=== PATIENT | female | born 1950 | race Caucasian/White ===

== ENCOUNTER 2024-09-22 15:13 | Emergency (ER) | payer MEDICARE, MEDICAID, SELFPAY ==
[2024-09-22] VITALS (25 sets, daily range): BP systolic 104–240; BP diastolic 52–133; PULSE 83–165; RESP 14–24; TEMP 37.2–37.3; O2SAT 35–100; BMI 21.9
--- NOTE | 2024-09-22 15:25 | PD.EDCHEST ---
ED Chest Pain RME/HPI General Chief Complaint: Chest Pain Stated Complaint: RIB PAIN Time Seen by Provider: 09/22/24 16:07 Arrival date/time: 09/22/24 15:13 RME / HPI RME / HPI narrative: DR. SANTOS MAIN ED EVALUATION: This section includes all my notes and documentations, including HPI, PE, and ED course.? Dustin Santos MD HPI: 74 year old female with past medical history significant for renal disease on dialysis, hypertension, COPD, pneumonia, on 3L/min home oxygen and defibrillator. Patient presents to the Emergency Department BIBA from home with complaint of left chest pain after being shocked by the defibrillator about an hour ago. Currently, patient reports no chest pain. No shortness of breath. No palpitations. No unusual fatigue or malaise. No other complaints. ROS: All negative except as documented in HPI. Physical Exam: General:? Alert and oriented.? No acute distress when remaining still.? High BP noted. Eyes:? Conjunctivae and lids clear. ENT:? No nasal congestion.? ? Neck:? Supple. Heart:? RRR. Lungs:? No respiratory distress.? Good air movement.? No rhonchi, wheezing, rales.? Abdomen:? Soft and nontender.? Legs:? No clubbing, cyanosis, edema. Skin:? Warm and dry.? Neuro:? Alert and oriented X 3.? My interpretation of the EKG is?Sinus rhythm (94 bpm) with nonspecific ST-T changes. Treatment here by me included oral Catapres 0.2 mg and oral Lopressor 25 mg. Pending complete diagnostic tests, the care of the patient was transferred to Dr. Velez at 6 PM on 09/22/2024. Dustin Santos MD Related Data Home Medications ?Medication ?Instructions ?Recorded ?Confirmed metoprolol tartrate 50 mg tablet 25 mg PO BID 09/20/19 10/02/23 amiodarone 200 mg tablet 200 mg PO BID 08/20/23 10/02/23 apixaban 5 mg tablet (Eliquis) 5 mg PO BID 08/20/23 10/02/23 atorvastatin 20 mg tablet 20 mg PO QDAY 08/20/23 10/02/23 calcium acetate(phosphat bind) 667 667 mg PO TID 08/20/23 10/02/23 mg capsule sacubitril 24 mg-valsartan 26 mg 1 tab PO BID 08/20/23 10/02/23 tablet (Entresto) albuterol sulfate 90 mcg/actuation 1 puff inhalation BIDPRN PRN 10/02/23 10/02/23 aerosol inhaler shortness of breath or wheezing Previous Rx's ?Medication ?Instructions ?Recorded fluticasone fur. 100 mcg-umeclid 1 inh inhalation Q24H #60 ea 10/01/23 62.5 mcg-vilant 25 mcg inhalat.powder (Trelegy Ellipta) amoxicillin 500 mg-potassium 1 tab PO Q12H #14 tabs 11/24/23 clavulanate 125 mg tablet (Augmentin) Allergies Allergy/AdvReac Type Severity Reaction Status Date / Time No Known Allergies Allergy Verified 09/22/24 15:46 Review of Systems Review of Systems Systems Reviewed: All systems reviewed, normal except as documented Past Medical History Past Medical History CARDIAC: Positive Cardiac Disorders, Myocardial Infarction, Heart Murmur, Coronary Artery Disease, Congestive Heart Failure, Edema and Hypertension RESPIRATORY: Positive Chronic Obstructive Pulmonary Disease (COPD) and Pneumonia GASTROINTESTINAL: Positive Gastrointestinal Disorders, Ulcer, Hemorrhoids and Obesity GENITOURINARY: Positive Genitourinary Disorders, Renal Disease, Kidney Stones and Dialysis REPRODUCTIVE: Positive Gonorrhea, Pelvic Inflammatory Disease and Previous Pregnancies MUSCULOSKELETAL: Positive Musculoskeletal Disorders and Fractures HEMATOLOGIC: Positive Blood Disorders and Anemia PSYCHO/SOCIAL: Positive Depression and Anxiety OTHER HISTORY: Positive Hospitalization, Chicken Pox, Measles, Mumps, Rubella (Uzbek Measles), Cancer and Cervical Cancer Family History FAMILY HISTORY: Positive Family Respiratory Disorders and Family Cardiac Disorders Surgical History SURGICAL: Positive Cardiac Surgery, Coronary Stent, Cardiac Catheterization, Angiogram, Auto Implanted Cardiovert Defib, Tonsillectomy, Adenoidectomy, Amputation and Hysterectomy Social History SECOND HAND EXPOSURE: Yes ED Exam Narrative Physical exam: Refer to HPI above Course Quality Measures none Orders Category Date Time Status Bedside COVID-19 Antigen Test NOW Care 09/22/24 15:30 Completed Bedside Influenza A&B Antigen Test NOW Care 09/22/24 15:[address] Screening NOW Care 09/22/24 17:35 Completed EKG (ED ONLY) *Do not use* NOW Care 09/22/24 15:31 Completed EKG (ED ONLY) *Do not use* NOW Care 09/22/24 18:31 Completed Emergency Titration Protocol Stat Care 09/22/24 18:17 Ordered Saline [Insert IV] NOW Care 09/22/24 15:30 Completed Straight [In and Out Catheter] X1 Care 09/22/24 15:30 Completed CXR1 [XR chest 1V] Stat Exams 09/22/24 18:28 Completed EKG (ED Only) Stat Exams 09/22/24 15:31 Draft EKG (ED Only) Stat Exams 09/22/24 18:31 Draft XR chest 1V portable Stat Exams 09/22/24 15:31 Completed ABG [Arterial Blood Gas] Stat Lab 09/22/24 16:21 Completed BNP [B-Type Natriuretic Peptide] Stat Lab 09/22/24 16:39 Completed Bilirubin,Direct Stat Lab 09/22/24 16:39 Completed CBC Stat Lab 09/22/24 16:39 Completed CMP [Comprehensive Metabolic Panel] Stat Lab 09/22/24 16:39 Completed D-Dimer Stat Lab 09/22/24 16:39 Completed Free T4 (Free Thyroxine) Stat Lab 09/22/24 16:39 Completed Magnesium Stat Lab 09/22/24 16:39 Completed PT [Prothrombin Time with INR] Stat Lab 09/22/24 16:39 Completed PTT [Partial Thromboplastin Time] Stat Lab 09/22/24 16:39 Completed TSH [Thyroid Stimulating Hormone] Stat Lab 09/22/24 16:39 Completed Troponin I Stat Lab 09/22/24 16:39 Completed Troponin I Stat Lab 09/22/24 19:42 Completed UA, C/S IF [Urinalysis, C/S if Indicated] Stat Lab 09/22/24 17:55 Completed Heparin Inj Med 09/22/24 19:32 Discontinued 3,800 unit IVP X1 ONE Heparin/D5w 25K 250 ML Ivpb [Heparin in D5w Ivpb] Med 09/22/24 19:45 Discontinued 25,000 unit in 250 ml IV 12 units/kg/hr Magnesium Sulf 50% Inj (gm) Med 09/22/24 18:19 Discontinued 2 gm IVP X1 ONE Metoprolol Tartrate [Lopressor] Med 09/22/24 15:30 Discontinued 25 mg PO X1 ONE Nitroglycerin [Nitrostat 1/150] Med 09/22/24 18:08 Discontinued 0.4 mg SL Q5MIN PRN Nitroglycerin/D5w 50 MG IVPB [Nitroglycerin in D5w Ivpb Med 09/22/24 18:02 Discontinued ] 50 mg in 250 ml .ROUTE .STK-MED Nitroglycerin/D5w 50 MG IVPB [Nitroglycerin in D5w Ivpb Med 09/22/24 18:07 Discontinued ] 50 mg in 250 ml IV 5 mcg/min cloNIDine HCL [Catapres] Med 09/22/24 15:30 Discontinued 0.2 mg PO X1 ONE fentaNYL INJ [Sublimaze Inj] Med 09/22/24 18:07 Discontinued 100 mcg .ROUTE .STK-MED ONE fentaNYL INJ [Sublimaze Inj] Med 09/22/24 18:11 Discontinued 25 mcg IVP PRN PRN BiPAP / CPAP NOW RT 09/22/24 18:24 Completed Vital Signs Vital signs: Vital Signs Temperature 99.0 F 09/22/24 15:20 Pulse Rate 96 09/22/24 15:20 Respiratory Rate 18 09/22/24 15:20 Blood Pressure 168/73 H 09/22/24 15:20 Pulse Oximetry (%) 95 09/22/24 15:20 Oxygen Delivery Method Nasal Cannula 09/22/24 15:20 Oxygen Flow Rate 3 09/22/24 15:20 Chest Pain MDM Narrative MDM Narrative:: IRegla am scribing for and in the presence of Dr. Santos. Patient data External records reviewed:: [facility] previous records (Reviewed prior ED records from 11/23/23. Patient was seen for Acute hypoxic respiratory failure.) and EMS form Clinical information provided by:: patient and EMS Social determinants that could affect healthcare access:: none Patient has the following chronic illnesses:: Renal disease on dialysis, hypertension, COPD, pneumonia, on 3L/min home oxygen; [place] where she coded, was resuscitated and a defibrillator was placed. How is presenting disease/condition affected by chronic disease/condition?: exacerbated by Evaluation data The following diagnostics were reviewed and interpreted by me:: lab results, radiology exam(s) and EKG tracing(s) (My interpretation of the EKG is: Sinus rhythm (94 bpm) with nonspecific ST-T changes. Dustin Santos MD) Lab and/or radiology exams considered but not ordered:: none Interpretation Summary: My interpretation of the EKG is: Sinus rhythm (94 bpm) with nonspecific ST-T changes. Medications / Prescriptions Medications or Prescriptions considered but not ordered:: none Medication administrations:: Medication Administration History Discontinued Medications Clonidine (Clonidine Hcl 0.1 Mg Tablet) 0.2 mg PO X1 ONE Stop: 09/22/24 15:31 Last Admin: 09/22/24 17:12 Dose: 0.2 mg Documented By: JOSE Fentanyl Citrate (Fentanyl Cit Inj 50 Mcg/Ml Amp 2ml) 25 mcg IVP PRN PRN PRN Reason: PAIN Stop: 09/23/24 18:10 Last Admin: 09/22/24 18:26 Dose: 25 mcg Documented By: JOVANA Comments: GIVE ANOTHER DOSE PER DR. VELEZ Admin: 09/22/24 18:24 Dose: 25 mcg Documented By: Admin: 09/22/24 18:22 Dose: 25 mcg Documented By: JOVANA Fentanyl Citrate (Fentanyl Cit Inj 50 Mcg/Ml Amp 2ml) Confirm Administered Dose 100 mcg .ROUTE .STK-MED ONE Stop: 09/22/24 18:08 Last Admin: 09/22/24 18:21 Dose: Not Given Documented By: JOVANA Non-Admin Reason: Duplicate Medication on eMAR Heparin Sodium (Porcine) (Heparin Sod Inj 5000 Unit/Ml Vial) 3,800 unit IVP X1 ONE Stop: 09/22/24 19:33 Last Admin: 09/22/24 19:54 Dose: 3,800 unit Documented By: JOVANA Co-signed By: EF Nitroglycerin/Dextrose (Nitroglycerin In D5w Ivpb) 50 mg in 250 mls @ 1.5 mls/hr IV .Q24H PRN PRN Reason: PER PROTOCOL Stop: 10/22/24 18:06 Last Infusion: 09/22/24 18:28 Dose: 0 mcg/min, 0 mls/hr Documented By: Infusion: 09/22/24 18:18 Dose: 400 mcg/min, 120 mls/hr Documented By: Admin: 09/22/24 18:11 Dose: 5 mcg/min, 1.5 mls/hr Documented By: JOVANA Nitroglycerin/Dextrose (Nitroglycerin In D5w Ivpb) Confirm Administered Dose 50 mg in 250 mls @ ud .ROUTE .STK-MED ONE Stop: 09/22/24 18:03 Last Admin: 09/22/24 18:20 Dose: Not Given Documented By: DB Non-Admin Reason: Duplicate Medication on eMAR Heparin Sodium/Dextrose (Heparin In D5w Ivpb) 25,000 unit in 250 mls @ 7.62 mls/hr IV .Q24H [facility]; Protocol Stop: 10/06/24 19:44 Last Admin: 09/22/24 19:55 Dose: 12 units/kg/hr, 7.62 mls/hr Documented By: JOVANA Co-signed By: EF Magnesium Sulfate (Magnesium Sulf Inj 0.5 Gm/Ml Vial 2 Ml) 2 gm IVP X1 ONE Stop: 09/22/24 18:20 Last Admin: 09/22/24 18:09 Dose: 2 gm Documented By: JOVANA Metoprolol Tartrate (Metoprolol Tartrate 25 Mg Tablet) 25 mg PO X1 ONE Stop: 09/22/24 15:31 Last Admin: 09/22/24 17:12 Dose: 25 mg Documented By: TM Nitroglycerin (Nitroglycerin 0.4 Mg Subl Btl #25) 0.4 mg SL Q5MIN PRN PRN Reason: CHEST PAIN Last Admin: 09/22/24 18:12 Dose: 0.4 mg Documented By: JOVANA From sd, patient received Catapres 0.2 mg, Lopressor 25 mg. Consultations Consultation(s) initiated? (list below): No Diagnosis Chest Pain Differential Diagnosis: fracture of rib, pneumothorax, stable angina, unstable angina pectoris, atypical chest pain, st elevation myocardial infarction, costochondritis and biliary colic Most likely diagnosis given after review of the tests above:: Complete diagnostic tests are pending. Admission Indicated Admission indicated?: not indicated Explain why admission is indicated or not indicated:: Complete diagnostic tests are pending. Admission Request Was there a request for admission?: No Disposition Plan Disposition Plan: other (specify) (Signed out to Dr. Velez at 6 PM.) Discharge Plan Plan Patient Disposition: [facility] Facility Pt Being Transferred to: [facility] Prescriptions/Referrals Prescriptions/Med Rec: No Action metoprolol tartrate 50 mg tablet 25 mg PO BID Patient Comments: TAKE ONE TABLET BY MOUTH TWICE DAILY Rx Instructions: take 1/2 tab twice daily Trelegy Ellipta 100-62.5-25 mcg blister with device 1 inh inhalation Q24H Qty: 60 0RF albuterol sulfate 90 mcg/actuation HFA aerosol inhaler 1 puff inhalation BIDPRN PRN (Reason: shortness of breath or wheezing) amoxicillin-pot clavulanate [Augmentin] 500-125 mg tablet 1 tab PO Q12H Qty: 14 0RF Rx Instructions: Dialysis days: Take dose AFTER dialysis session. atorvastatin 20 mg tablet 20 mg PO QDAY Patient Comments: TAKE ONE TABLET BY MOUTH EVERY DAY FOR CHOLESTEROL amiodarone 200 mg tablet 200 mg PO BID Patient Comments: TAKE ONE TABLET BY MOUTH TWICE DAILY FOR THE HEART calcium acetate(phosphat bind) 667 mg capsule 667 mg PO TID Patient Comments: TAKE TWO CAPSULES BY MOUTH THREE TIMES DAILY WITH FOOD Rx Instructions: take 3 capule by mouth three times daily Eliquis 5 mg tablet 5 mg PO BID Patient Comments: TAKE ONE TABLET BY MOUTH TWICE DAILY FOR THE HEART Entresto 24-26 mg tablet 1 tab PO BID Patient Comments: TAKE ONE TABLET BY MOUTH TWICE DAILY Referrals: Alfie Mishra MD [Primary Care Provider] - In 1 week Problem List Clinical Impression: Chest pain Patient/Caregiver Discharge Instructions Print Language: Macedonian Stand Alone Forms: [employer] Award Info., Patient Portal Info Letter
--- NOTE | 2024-09-22 15:31 | XR_ITS ---
Examination: AP chest single view TECHNIQUE: AP portable upright chest single view Date and time: September 22, 2024 1630 hours Comparison November 23, 2023 INDICATIONS: Shortness of breath beginning 6 days ago. FINDINGS: Mild CHF Moderate enlargement cardiac contour Prominent vascular congestion. Early basilar edema. Heavy cardiac calcification which may be mitral Cardiac leads stable position IMPRESSION: Mild CHF
--- NOTE | 2024-09-22 15:31 | EKG_ITS ---
[facility] Test Date: 2024-09-22 Pat Name: REILLY GRADY Department: Room: - Gender: Female [employer]: : 1950 Requested By: Dustin Dunham Order Number: [id number] Reading MD: Dustin Dunham Measurements Intervals [place] Rate: 94 P: 80 WA: 199 QRS: 11 QRSD: 112 T: 141 QT: 355 QTc: 445 Interpretive Statements SINUS RHYTHM POSSIBLE LEFT ATRIAL ENLARGEMENT [-0.1mV P-WAVE IN V1/V2] LEFT VENTRICULAR HYPERTROPHY AND ST-T CHANGE [VOLTAGE CRITERIA PLUS ST/T ABNORMALITY] Compared to ECG 10/02/2023 00:21:30 Left-axis deviation no longer present ST (T wave) deviation still present /store/S0/[id number].pdf
[2024-09-22 16:33] LABS: Base Excess 9 (-3-3); HCO3 34 mEq/L (20-26); Inspired Oxygen, FIO2 21 %; O2 Saturation 99 % (91-98); PCO2 46 mmHg (32.0-48.0); PO2 94 mmHg (83-108); pH, Arterial 7.47 (7.35-7.45)
[2024-09-22 16:36] LABS: Allen Test Performed/OK; Puncture Site Left Radial
[2024-09-22 16:49] LABS: Basophils # (Auto) 0.1 Thou/mm3 (0.0-0.2); Basophils % (Auto) 1 % (0-2.5); Eosinophils # (Auto) 0.1 Thou/mm3 (0.0-0.5); Eosinophils % (Auto) 1 % (0-10); Hematocrit 31.3 % (36.0-46.0); Hemoglobin 10.2 g/dL (12.0-16.0); Immature Granulocytes % (Auto) 1 % (0-0); Immature Granulocytes Auto 0.03 Thou/mm3 (0.00-0.00); Lymphocytes # (Auto) 0.9 Thou/mm3 (1.0-4.8); Lymphocytes % (Auto) 14 % (10-50); Mean Corpuscular HGB Conc 32.6 g/dl (31.0-37.0); Mean Corpuscular Hemoglobin 28.7 pg (25.0-35.0); Mean Corpuscular Volume 88 fL (80-100); Monocytes # (Auto) 0.8 Thou/mm3 (0.0-0.8); Monocytes % (Auto) 12 % (0-12); Neutrophils # (Auto) 4.4 Thou/mm3 (1.8-7.7); Neutrophils % (Auto) 71 % (37-80); Nucleated Red Blood Cell % 0 /100 WBC (0); Platelet Count 112 Thou/mm3 (140-440); RDW Standard Deviation 53.6 fL (36.4-46.3); Red Blood Count 3.56 Miln/mm3 (4.00-5.20); White Blood Count 6.2 Thou/mm3 (3.6-11.0)
[2024-09-22 17:04] LABS: INR 1.1 (0.9-1.3); Partial Thromboplastin Time 26.8 Seconds (22.0-36.0); Prothrombin Time 11.7 Seconds (9.0-12.2)
[2024-09-22 17:10] LABS: D-Dimer 1420 ng/mL (<600)
[2024-09-22] MEDS: METOPROLOL TARTRATE 25 MG TABLET PO (17:12)
[2024-09-22] MEDS: cloNIDine HCL 0.1 MG TABLET 0.2 MG PO (17:12)
[2024-09-22 17:38] LABS: B-Type Natriuretic Peptide 1939 pg/mL (0-100)
[2024-09-22 17:53] LABS: Alanine Aminotransferase 14 U/L (10-49); Albumin, Serum 4.1 gm/dL (3.4-4.8); Albumin/Globulin Ratio 2.1 (1.2-2.2); Alkaline Phosphatase 137 U/L (46-116); Anion Gap 9 (7-16); Aspartate Amino Transferase 14 U/L (0-34); BUN/Creatinine Ratio 5 Ratio (12-20); Bilirubin,Direct 0.2 mg/dL (0.0-0.3); Bilirubin,Total 0.4 mg/dL (0.3-1.2); Blood Urea Nitrogen 31 mg/dL (9-23); Calcium 9.8 mg/dL (8.3-10.6); Calcium (Corrected) 9.8 mg/dL (8.5-10.1); Carbon Dioxide 32.3 mMol/L (20.0-31.0); Chloride 95 mMol/L (98-107); Creatinine (Component) 6.1 mg/dL (0.6-1.3); Free T4 (Free Thyroxine) 0.94 ng/dL (0.89-1.76); Glucose 105 mg/dL (74-106); Magnesium 2.3 mg/dL (1.6-2.6); Osmolality,Calculated 278 (275-295); Sodium 136 mMol/L (136-145); Thyroid Stimulating Hormone 1.15 uIU/mL (0.55-4.78); Total Protein 6.1 gm/dL (5.7-8.2); eGFR 7 See Note
[2024-09-22 18:07] LABS: Collection Type, Urine Clean Catch
[2024-09-22] MEDS: MAGNESIUM SULF 2 GM IVP (18:09)
[2024-09-22] MEDS: Nitroglycerin/D5w 50 MG IVPB 50 MG/250 ML BTL IV (18:11)
[2024-09-22] MEDS: NITROGLYCERIN 0.4 MG SUBL BTL #25 SL (18:12)
[2024-09-22 18:15] LABS: Troponin I 0.204 ng/mL (0.0-0.045)
--- NOTE | 2024-09-22 18:16 | EDNOTE_ITS ---
Emergency Room Addendum <Justina Littlejohn - Last Filed: 09/22/24 23:30> Addendum Narrative: 1800: Care assumed from Dr. Santos (emergency physician). Past medical, surgical, social and family history reviewed. Vitals and home medications reviewed. Results and treatment plan discussed. I will assume the care of the patient at this time and will follow the patient, pending CT and labs. 1806: 8 minutes ago patient complained of difficulty breathing. Defibrillator went off 3 times. Patient is tachycardic and hypertensive with systolic in the 200's. Patient will be started on BiPAP and Nitroglycerin drip. Patient i full code and has no allergies to medication. 1823: Blood pressure is progressively coming down. Patient is mentally well. Patient given 2 Nitroglycerin SL as well as drip. She is having another complex episode of tachycardia. Defibrillator went off again. Patient is tolerating BiPAP well. 1834: Patient has a Hx of CAD, multiple AL's and stent placements, COPD, on O2 2-3L at home, A-fib with pacemaker. ESRD on Thursday, Thursday, , and Thursday. Will investigate to see who her senior cytotechnologist is. 1838: HR is 101, BP 144/97, and is tolerating BiPAP well. Initial chest x-ray shows small right pleural effusion, significant cardiomegaly, and largely calcified aorta. D-Dimer 1420, ABG pH 7.47, ABG HCO3 34, ABG O2 99%, ABG Base 9. Troponin I 0.204, BNP 1939. Acute on Chronic Kidney injury Creatinine 6.1, and significant electrolyte abnormalities. UA appears possibly infected. Initial EKG shows sinus rhythm, 94 bmp, normal intervals, non-specific T-wave changes, S-T elevations at 3 and AVF. Ordered delta trop. Repeat EKG done at 1833, 102 bpm, MD 204, QT 408, left bundle with elevations in 2, 3, does not meet criteria for AL nor Scarbossa criteria, not a cardiac alert. normal intervals, non-specific T-wave changes, not a cardiac alert. - Interpreted by Dr. Renetta Samano. Repeat EKG done at 1913 87, heart rate 87 MD 209, QTc 414, patient with dynamic EKG changes now with ST depressions in lead I aVL and severely pronounced ST depressions in lead V4, V5, V6 also has ST elevations in lead to 3 and aVF. Concern that patient is having an AL. Activated as a STEMI. - Interpreted by Dr. Renetta Samano. 1914: Dr. Escudero made aware of the patient?s HPI, PMHx, lab and/or radiology results. Discussed treatment plan. Dr. Escudero will come down to evaluate patient. 1938: Dr. Escudero recommends transfer for higher level of care for STEMI. Patient is currently having an inferior AL. Dr. Escudero agrees with heparin bolus and drip. Does not recommend fibrinolytics at this time, only Heparin. Per chart review patient has had prior EKGs with mild elevations in inferior leads possibly has had an inferior AL in the past however is concerned that she is reoccluding her right coronary artery. Recommends that we reach out to [facility] 1956: Discussing case with Dr. Mascorro at [facility]. Accepts patient for transfer. On reevaluation patient hemodynamically stable, symptoms well- controlled not having chest pain at this time. Stable on BiPAP, nitroglycerin drip has been off since blood pressure shortness of breath was controlled. Repeat chest x-ray shows pulmonary edema. RADIOLOGY Repeat CXR: FINDINGS: [id number] CHF Moderate to large cardiac contour Prominent vascular congestion Perihilar basilar edema Cardiac leads satisfactory position IMPRESSION: [id number] CHF 2027: Patient transported to [facility]. <Renetta Samano MD - Last Filed: 09/22/24 20:07> Addendum Narrative: 1800: Care assumed from Dr. Santos (emergency physician). Past medical, surgical, social and family history reviewed. Vitals and home medications reviewed. Results and treatment plan discussed. I will assume the care of the patient at this time and will follow the patient, pending CT and labs. 1806: 8 minutes ago patient complained of difficulty breathing. Defibrillator went off 3 times. Patient is tachycardic and hypertensive with systolic in the 200's. Patient will be started on BiPAP and Nitroglycerin drip. Patient i full code and has no allergies to medication. 1822: Blood pressure is progressively coming down. Patient is mentally well. Patient given 2 Nitroglycerin SL as well as drip. She is having another complex episode of tachycardia. Defibrillator went off again. Patient is tolerating BiPAP well. 1833: Patient has a Hx of CAD, multiple AL's and stent placements, COPD, on O2 2-3L at home, A-fib with pacemaker. ESRD on Thursday, Thursday, , and Thursday. Will investigate to see who her senior cytotechnologist is. 1837: HR is 101, BP 144/97, and is tolerating BiPAP well. Initial chest x-ray shows small right pleural effusion, significant cardiomegaly, and largely calc ified aorta. D-Dimer 1420, ABG pH 7.47, ABG HCO3 34, ABG O2 99%, ABG Base 9. Troponin I 0.204, BNP 1939. Acute on Chronic Kidney injury Creatinine 6.1, and significant electrolyte abnormalities. UA appears possibly infected. Initial EKG shows sinus rhythm, 94 bmp, normal intervals, non-specific T-wave changes, S-T elevations at 3 and AVF. Ordered delta trop. Repeat EKG done at 1832, 102 bpm, MD 204, QT 408, left bundle with elevations in 2, 3, does not meet criteria for AL nor Scarbossa criteria, not a cardiac alert. normal intervals, non-specific T-wave changes, not a cardiac alert. - Interpreted by Dr. Renetta Samano. Repeat EKG done at 1912 87, heart rate 87 MD 209, QTc 414, patient with dynamic EKG changes now with ST depressions in lead I aVL and severely pronounced ST depressions in lead V4, V5, V6 also has ST elevations in lead to 3 and aVF. Concern that patient is having an AL. Activated as a STEMI. - Interpreted by Dr. Renetta Samano. 1914: Dr. Escudero made aware of the patient?s HPI, PMHx, lab and/or radiology results. Discussed treatment plan. Dr. Escudero will come down to evaluate patient. 1938: Dr. Escudero recommends transfer for higher level of care for STEMI. Patient is currently having an inferior AL. Dr. Escudero agrees with heparin bolus and drip. Does not recommend fibrinolytics at this time, only Heparin. Per chart review patient has had prior EKGs with mild elevations in inferior leads possibly has had an inferior AL in the past however is concerned that she is reoccluding her right coronary artery. Recommends that we reach out to [place] [id number]: Discussing case with Dr. Mascorro at [facility]. Accepts patient for transfer. On reevaluation patient hemodynamically stable, symptoms well- controlled not having chest pain at this time. Stable on BiPAP, nitroglycerin drip has been off since blood pressure shortness of breath was controlled. Repeat chest x-ray shows pulmonary edema. RADIOLOGY Head/Brain CT: Chest CTA: Repeat CXR: Critical Care Time <Justina Littlejohn - Last Filed: 09/22/24 23:30> Critical Care Time Critical Care Time: Yes Total Critical Care Time (min.): 120 Attestation: The high probability of sudden, clinically significant deterioration in the patient?s condition required the highest level of my preparedness to intervene urgently. The services I provided to this patient were to treat and/or prevent clinically significant deterioration. Services included the following: chart data review, reviewing nursing notes and/or old charts, documentation time, quality compliance consultant collaboration regarding findings and treatment options, medication orders and management, direct patient care, vital sign assessments and ordering, interpreting and reviewing diagnostic studies and lab tests. Aggregate critical care time includes only time during which I was engaged in work directly related to the patient?s care, as described above, whether at bedside or elsewhere in the Emergency Department. It did not include time spent performing other reported procedures or the services of residents, students, nurses or physician assistants.
--- NOTE | 2024-09-22 18:21 | PC.NURSE ---
PT CARDIAC RHYTHM SHOWED SVT AND PT INTERNAL DEFIBRILLATOR DELIVERED A SHOCK WITH RHYTHM CHANGE TO NSR, DR. ROSIE LLAMAS BEDSIDE
[2024-09-22] MEDS: fentaNYL CIT INJ 50 mCg/ML AMP 2ML 25 MCG IVP ×3 (18:22→18:26)
[2024-09-22 18:23] LABS: Bacteria,Urine Rare; Bilirubin,Urine Negative (Negative); Blood,Urine Trace (Negative); Clarity,Urine Clear (Clear/Hazy); Color,Urine Lt-Yellow (Lt Yel-Yel); Culture Indicated,Urine Contaminated; Glucose, Urine Negative (Negative); Ketones,Urine Negative (Negative); Leukocyte Esterase,Urine Positive (Negative); Nitrite,Urine Negative (Negative); Protein,Urine 2+ (Neg - Trace); RBC,Urine 11 /hpf (0-3); Squamous Epithelial Cell,Urine 16 /hpf (0-5); Urobilinogen,Urine Negative mg/dL (0.0-1.0); WBC,Urine 43 /hpf (0-5)
--- NOTE | 2024-09-22 18:28 | XR_ITS ---
Examination: AP chest single view Technique AP portable upright chest single view Date and time: September 22, 2024 1830 7:00 PM Comparison September 22, 2024 1630 hours INDICATIONS: Onset respiratory distress beginning one hour ago FINDINGS: [id number] CHF Moderate to large cardiac contour Prominent vascular congestion Perihilar basilar edema Cardiac leads satisfactory position IMPRESSION: [id number] CHF
--- NOTE | 2024-09-22 18:31 | EKG_ITS ---
[facility] Test Date: 2024-09-22 Pat Name: REILLY GRADY Department: Room: - Gender: Female Director [place] [employer]: : 1950 Requested By: Renetta Greer Order Number: [id number] Reading MD: Renetta Greer Measurements Intervals [place] Rate: 102 P: 89 MA: 204 QRS: 72 QRSD: 130 T: 42 QT: 349 QTc: 456 Interpretive Statements SINUS TACHYCARDIA INFERIOR MYOCARDIAL INFARCTION , POSSIBLY ACUTE [40+ ms Q WAVE AND/OR ST/T ABNORMALITY IN II/aVF] ACUTE TX Compared to ECG 09/22/2024 16:07:19 Myocardial infarct finding now present Sinus rhythm no longer present Left ventricular hypertrophy no longer present ST (T wave) deviation no longer present /store/S0/[id number].pdf
--- NOTE | 2024-09-22 18:38 | PC.NURSE ---
THIS RN DID A STRAIGHT CATH ON PT, THEN ATTEMPTED AN IV 2X. WAS IN THE ROOM W/PT ABOUT 30-40 MINUTES, PT WAS LAUGHING JOKING W/THIS RN AND CUSTOMER CONTACT REPRESENTATIVE SARAH. THIS RN WALKED OUT TO SEND URINE, AND ASKED A ADELINA RN TO GO ATTEMPT AN IV, FELLOW RN CAME OUT AND ASKED IF PT IS AT HER BASELINE, THIS RN WENT IN THE ROOM, PT WAS STRUGGLING TO BREATHE, REPEATING SHE CAN'T BREATHE, BEGAN GOING INTO VTACH. PROVIDER NOTIFIED, PT MOVED TO TRAUMA ROOM, PLACED ON MD TAYLOR AT BEDSIDE GIVING VERBAL ORDERS. THIS RN GAVE HANDOFF TO ANDREW MCGOVERN.
--- NOTE | 2024-09-22 19:24 | PC.NURSE ---
UNABLE TO GET AHOLD OF FAMILY FOR THIS PT AT THIS TIME TO GET AN UPDATE ON PT MEDICATION RECORD.
--- NOTE | 2024-09-22 19:33 | PC.NURSE ---
DR. BEARDEN AT BEDSIDE ASSESSING PT AT THIS TIME
[2024-09-22] MEDS: HEPARIN SOD INJ 5000 UNIT/ML VIAL 3800 UNIT IVP (19:54)
[2024-09-22] MEDS: Heparin/D5w 25K 250 ML Ivpb 25,000 UNIT/250 ML BAG 7.62 UNIT IV (19:55)
--- NOTE | 2024-09-22 20:03 | PC.NURSE ---
THIS PT IS ACCEPTED TO ER BY DR. CORADO. THIS IS A ED:ED TRANSFER AND NUMBER FOR REPORT IS [id number]. [facility]PO[facility] FOR ACCEPTING INFORMATION.
[2024-09-22 20:41] LABS: Troponin I 0.198 ng/mL (0.0-0.045)
--- NOTE | 2024-09-23 00:12 | ESCONSULT_ITS ---
RE: REILLY GRADY : 1950 DATE OF CONSULTATION: 09/22/2024 CONSULTING PHYSICIAN: REASON FOR CONSULTATION: Evaluation of acute myocardial infarction. CHIEF COMPLAINT: Shortness of breath, defibrillator shock. HISTORY OF PRESENT ILLNESS: The patient is a 74-year-old female with a longstanding history of hypertension, chronic kidney disease, on hemodialysis, chronic obstructive pulmonary disease, pneumonia, history of myocardial infarction, stent placement in the right coronary artery in 07/2023 and underwent ICD implantation following sudden cardiac . She came to the hospital because of severe shortness of breath and tachycardia and hypertensive, a lot of difficulty in breathing. The patient was on BiPAP, nitroglycerin drip. The patient has flash pulmonary edema. Chest x-ray shows pleural effusion, cardiomegaly, and initial ABC showed pH 7.47, pCO2 bicarbonate 34, saturation 99%, troponin 0.20, BNP level 1939, and creatinine of 6.1. The patient has had internal defibrillator shocked, developed ventricular fibrillation, tachycardia; internal defibrillator shocked x3 and she came back to sinus rhythm. Electrocardiogram showed evidence of sinus rhythm with IVCD, ST elevation II, III, aVF with Q-wave suggestive of different dynamic ST change elevations compared to previous EKG in inferior leads. The patient has known history of CAD, stent placement of right coronary artery in the past. Chances are she occluded right coronary artery causing ventricular fibrillation. Because of what appears to be acute occlusion of the right coronary artery, I have recommended the patient be transferred to [facility] for myocardial infarction. ALLERGIES: NONE. MEDICATIONS: She is on multiple medications at home includin. Metoprolol 25 mg twice daily. 2. Amiodarone 200 mg twice daily. 3. Apixaban 5 mg twice daily. 4. Atorvastatin 20 mg daily. 5. Sacubitril, valsartan, Entresto 1 tablet twice daily. PAST MEDICAL HISTORY: Hypertension, CKD on hemodialysis, CAD, stent placement in right coronary artery, status post ICD implantation, and . SOCIAL HISTORY: Not available. REVIEW OF SYSTEMS: Cardiovascular: As described in HPI. She does not have any chest pain, mostly shortness of breath, weakness. Gastrointestinal: No nausea or vomiting. Genitourinary: No history of frequency or dysuria. PHYSICAL EXAMINATION: GENERAL: A well-nourished, thin built, elderly female, alert, awake, and in no acute distress. VITAL SIGNS: Remained stable. Blood pressure is 160/80, pulse rate is 80, respirations 18, and temperature normal. HEENT: Head is atraumatic and normocephalic. EYES: Normal. ENT: Normal. NECK: Supple. No JVD. Carotid pulse felt with no bruit. CHEST: Symmetrical. LUNGS: Decreased breath sounds. HEART: S1 and S2. Regular, tachycardia. ABDOMEN: Thin and soft. 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 There is also edema. /RECTAL: Not performed. NEUROLOGIC: The patient is fairly alert and awake. No acute distress. She is on BiPAP. IMPRESSION/ASSESSMENT: 1. Acute ST segment elevation, inferior wall myocardial infarction, and history of old myocardial infarction. 2. Status post multivessel stent placement in RCA. 3. Status post ICD implantation, ICD discharge for ventricular fibrillation and tachycardia. RECOMMENDATIONS: The patient clearly has ventricular fibrillation, possibly from RCA occlusion. It is prudent for her to be in [place] to get tertiary care because tonight there is no available to treat this patient here. She will be transferred there for higher level of care, may require coronary angiogram. We will leave it up to the cardiac Hospital. I would like to thank you for referring this patient for cardiovascular evaluation. We will be glad to discuss with the site administrator and call if necessary at [facility]. DT: 20:37:23 TT: 23:07:00 Ref: [id number] - TID: [id number]
== END 2024-09-22 20:33 | disposition short-term general hospital (02) ==
PROVIDERS: Emergency Medicine; Emergency Provider Emergency Medicine; PCP Internal Medicine
DX: I13.2 Hypertensive heart and chronic kidney disease with heart failure and with stage 5 chronic kidney disease, or end stage renal disease (principal); I50.9 Heart failure, unspecified; Z75.1 Person awaiting admission to adequate facility elsewhere
CPT/HCPCS: 51701; 36415; 36600; 71045; 80053; 81001; 82248; 82803; 83735; 83880; 84439; 84443; 84484; 85025; 85379; 85610; 85730; 87400; 87811; 93005; 94660; 96365; 96374; 96375; 99291; 99292; J1644; J3010; J3475; J3490; A9270; J2305

== ENCOUNTER 2024-11-11 03:32 | Inpatient (IN) | payer MEDICARE, MEDICAID, SELFPAY ==
[2024-11-11] VITALS (88 sets, daily range): BP systolic 84–232; BP diastolic 11–94; PULSE 69–89; RESP 12–25; TEMP 34.6–37; O2SAT 84–100; BMI 24.5
--- NOTE | 2024-11-11 03:36 | XR_ITS ---
Examination: AP chest single view Technique one AP portable semiupright chest single view Date and time: November 21, 2024 0347 hours Comparison 05/25/2024 INDICATIONS: Hypoxic respiratory failure, heart failure postintubation on earlier chest films FINDINGS: Moderate heart failure. Moderate enlargement cardiac contour Prominent vascular congestion with perihilar basilar edema. Endotracheal tube tip 10 cm above bam. Orogastric tube is in the proximal stomach Cardiac leads stable position IMPRESSION: Moderate CHF Advance the orogastric tube 7 cm with follow-up abdomen film
[2024-11-11] MEDS: ETOMIDATE INJ 2 MG/ML VIAL 10 ML 20 MG IVP (03:37)
--- NOTE | 2024-11-11 03:38 | PD.EDSOB ---
ED SOB =RME/HPI General Chief Complaint: Shortness of Breath/Dyspnea Stated Complaint: DIFF BREATHING Time Seen by Provider: 11/11/24 03:37 Arrival date/time: 11/11/24 03:32 RME / HPI RME / HPI Narrative: This section includes all my notes and documentations, including HPI, PE, and ED course. Dustin Santos MD HPI: 74 y/o female with Hx of CHF, COPD, and Renal Failure with Dialysis BIBA from home present with respiratory failure. Patient lives alone. Patient manage to call 911. When EMS arrived, she was awake with severe respiratory distress and audible wheezing. Neb treatment X 5 given with CPAP. EMS noted decreasing mental status. Unable to obtain history from the patient here. ROS: Unable to obtain from the patient due to current clinical condition. Physical Exam: General: Patient is obtunded. Severe respiratory distress noted. Hypoxia noted. High BP noted. Eyes: Conjunctivae and lids clear. EOMI. PERRL. ENT: No nasal congestion. Neck: Supple. No carotid bruit. No JVD. Heart: RRR. Lungs: Severe respiratory distress respiratory distress. Moderately decreased air movement with wheezing and rales. Abdomen: Soft and nontender. Legs: No clubbing, cyanosis, edema. Skin: Warm and dry. Neuro: Patient is obtunded. I reviewed EMS notes. I reviewed all diagnostic test results: My interpretation of the EKG is: Sinus rhythm (85 bpm) with nonspecific ST-T changes, no change from previous EKG. My interpretation of the chest x-ray is opacities. Blood tests remarkable for WBC 13.5, D-dimer 2630, Cr 6.4, lactic acid 4.1, Ca 7.7, troponin 0.046, BNP 2006. UA showed positive leukocyte Estrace, 502 RBC, 1255 WBC. ABG showed pH 7.14, pCO 271, and pHCO3 24. Covid/Influenza: At this point, diagnoses include: Acute respiratory failure with hypoxia and hypercapnia, COPD exacerbation, Respiratory acidosis, Pneumonia, CHF (congestive heart failure), UTI (urinary tract infection), ESRD (end stage renal disease), Sepsis, Hypocalcemia Treatment here included: Intubation (see procedure note), cefepime and vancomycin, Solu-Medrol and Xopenex neb treatments, etomidate and succinylcholine for intubation, and propofol drip for sedation. 0410: I discussed the case with our ICU service. About the presentation and exam and diagnostics and treatments here. And need of further care in the hospital. Will accept the patient. Dustin Santos MD Related Data Home Medications ?Medication ?Instructions ?Recorded ?Confirmed metoprolol tartrate 50 mg tablet 25 mg PO BID 09/20/19 10/02/23 amiodarone 200 mg tablet 200 mg PO BID 08/20/23 10/02/23 apixaban 5 mg tablet (Eliquis) 5 mg PO BID 08/20/23 10/02/23 atorvastatin 20 mg tablet 20 mg PO QDAY 08/20/23 10/02/23 calcium acetate(phosphat bind) 667 667 mg PO TID 08/20/23 10/02/23 mg capsule sacubitril 24 mg-valsartan 26 mg 1 tab PO BID 08/20/23 10/02/23 tablet (Entresto) albuterol sulfate 90 mcg/actuation 1 puff inhalation BIDPRN PRN 10/02/23 10/02/23 aerosol inhaler shortness of breath or wheezing Previous Rx's ?Medication ?Instructions ?Recorded fluticasone fur. 100 mcg-umeclid 1 inh inhalation Q24H #60 ea 10/01/23 62.5 mcg-vilant 25 mcg inhalat.powder (Trelegy Ellipta) amoxicillin 500 mg-potassium 1 tab PO Q12H #14 tabs 11/24/23 clavulanate 125 mg tablet (Augmentin) Allergies Allergy/AdvReac Type Severity Reaction Status Date / Time No Known Allergies Allergy Verified 09/22/24 15:46 Review of Systems Review of Systems Systems Reviewed: All systems reviewed, normal except as documented Past Medical History Past Medical History CARDIAC: Positive Cardiac Disorders, Myocardial Infarction, Heart Murmur, Coronary Artery Disease, Congestive Heart Failure, Edema and Hypertension RESPIRATORY: Positive Chronic Obstructive Pulmonary Disease (COPD) and Pneumonia GASTROINTESTINAL: Positive Gastrointestinal Disorders, Ulcer, Hemorrhoids and Obesity GENITOURINARY: Positive Genitourinary Disorders, Renal Disease, Kidney Stones and Dialysis REPRODUCTIVE: Positive Gonorrhea, Pelvic Inflammatory Disease and Previous Pregnancies MUSCULOSKELETAL: Positive Musculoskeletal Disorders and Fractures HEMATOLOGIC: Positive Blood Disorders and Anemia PSYCHO/SOCIAL: Positive Depression and Anxiety OTHER HISTORY: Positive Hospitalization, Chicken Pox, Measles, Mumps, Rubella (Citizen [place] Measles), Cancer and Cervical Cancer Family History FAMILY HISTORY: Positive Family Respiratory Disorders and Family Cardiac Disorders Surgical History SURGICAL: Positive Cardiac Surgery, Coronary Stent, Cardiac Catheterization, Angiogram, Auto Implanted Cardiovert Defib, Tonsillectomy, Adenoidectomy, Amputation and Hysterectomy ED Exam Narrative Physical exam: Refer to HPI Course Course Course Narrative: CXR is ordered for determining the etiology of shortness of breath. Quality Measures none Orders Category Date Time Status Admit to Inpatient Status Routine Admission 11/11/24 05:17 Active Patient Condition Routine Admission 11/11/24 05:17 Ordered Bedside COVID-19 Antigen Test NOW Care 11/11/24 03:39 Active Bedside Influenza A&B Antigen Test NOW Care 11/11/24 03:39 Completed COVID-19 Screening Questionnaire NOW Care 11/11/24 04:40 Active Continuous Pulse Oximetry NOW Care 11/11/24 05:17 Active Decision to Admit X1 Care 11/11/24 04:40 Completed EKG (ED ONLY) *Do not use* NOW Care 11/11/24 03:39 Completed Emergency Titration Protocol Stat Care 11/11/24 04:42 Ordered Flu & Pneumonia Vaccine Screen ONCE Care 11/11/24 05:17 Active Fluid restriction QDAY Care 11/11/24 05:27 Active [place] [Urinary Catheter] QS Care 11/11/24 03:36 Active [place] to [place] Routine Care 11/11/24 03:39 Ordered Insert NG / OG tube NOW Care 11/11/24 03:36 Active Insert NG / OG tube NOW Care 11/11/24 03:39 Completed Intubation NOW Care 11/11/24 03:35 Completed Miscellaneous Nursing Order X1 Care 11/11/24 05:27 Active NPO NOW Care 11/11/24 05:18 Active Notify provider NEEDED Care 11/11/24 05:17 Active Obtain weight daily Care 11/11/24 05:18 Active Saline [Insert IV] NOW Care 11/11/24 03:39 Active Strict Intake and Output Routine Care 11/11/24 05:18 Ordered Consult to Nephrology Routine Cons 11/11/24 04:53 Ordered Diet NPO (NOW) Diet 11/11/24 05:[address] chest wo con Urgent Exams 11/11/24 05:[address] head/brain wo con Stat Exams 11/11/24 04:50 Ordered EKG (ED Only) Stat Exams 11/11/24 03:39 Ordered XR chest 1V post procedure Stat Exams 11/11/24 03:36 Taken ABG [Arterial Blood Gas] Stat Lab 11/11/24 03:41 Ordered ABG [Arterial Blood Gas] Stat Lab 11/11/24 04:01 Completed ABG [Arterial Blood Gas] Urgent Lab 11/11/24 06:00 Ordered Ammonia Stat Lab 11/11/24 04:00 Completed BNP [B-Type Natriuretic Peptide] Stat Lab 11/11/24 04:00 Completed Beta Hydroxybutyrate Stat Lab 11/11/24 04:00 Completed Bilirubin,Direct Stat Lab 11/11/24 04:00 Completed Blood Culture (Lab) Stat Lab 11/11/24 04:53 Received CBC AM DRAW Lab 11/12/24 05:00 Ordered CBC AM DRAW Lab 11/13/24 05:00 Ordered CBC AM DRAW Lab 11/14/24 05:00 Ordered CBC Stat Lab 11/11/24 04:00 Completed CK [Creatine Kinase] Stat Lab 11/11/24 04:00 Completed CMP [Comprehensive Metabolic Panel] Stat Lab 11/11/24 04:00 Completed CRP [C-Reactive Protein] Stat Lab 11/11/24 04:00 Completed Comprehensive Metabolic Panel AM DRAW Lab 11/12/24 05:00 Ordered Comprehensive Metabolic Panel AM DRAW Lab 11/13/24 05:00 Ordered Comprehensive Metabolic Panel AM DRAW Lab 11/14/24 05:00 Ordered D-Dimer Stat Lab 11/11/24 04:00 Completed ESR [Sed Rate (ESR)] Stat Lab 11/11/24 04:00 Completed Free T4 (Free Thyroxine) Stat Lab 11/11/24 04:00 Completed Lactate (Lactic Acid) Stat Lab 11/11/24 04:00 Results Lipase Stat Lab 11/11/24 04:00 Completed Lipid Panel Routine Lab 11/11/24 05:20 Ordered Magnesium Stat Lab 11/11/24 04:00 Completed PT [Prothrombin Time with INR] Stat Lab 11/11/24 04:00 Completed PTT [Partial Thromboplastin Time] Stat Lab 11/11/24 04:00 Completed Path Review Blood Smear Stat Lab 11/11/24 04:00 Completed Phosphorous Routine Lab 11/12/24 05:20 Ordered Procalcitonin Stat Lab 11/11/24 04:00 Completed RSV [Respiratory Syncytial Virus Ag] Stat Lab 11/11/24 05:23 Ordered Sputum Culture and Gram Stain Stat Lab 11/11/24 03:58 Received TSH [Thyroid Stimulating Hormone] Stat Lab 11/11/24 04:00 Completed Troponin I Q6H Lab 11/11/24 10:00 Ordered Troponin I Q6H Lab 11/11/24 16:00 Ordered Troponin I Stat Lab 11/11/24 04:00 Completed UA, C/S IF [Urinalysis, C/S if Indicated] Stat Lab 11/11/24 04:10 Completed Acetaminophen Tab [Tylenol Tab] Med 11/11/24 05:17 Active 650 mg PO Q6H PRN Albuterol/Ipratr Rt Poonam [Duoneb Rt Poonam] Med 11/11/24 07:00 Active 3 ml INH Q4HRRT Amiodarone [Cordarone] Med 11/11/24 09:00 Active 200 mg NG BID Apixaban [Eliquis] Med 11/11/24 09:00 Active 5 mg NG BID Aspirin Chew Med 11/11/24 09:00 Active 81 mg NG QDAY Atorvastatin Calcium [Lipitor] Med 11/11/24 21:00 Ordered 40 mg NG HS Cefepime Inj [Maxipime Inj] 1 gm Med 11/11/24 09:00 Ordered SODIUM CHLORIDE 0.9% (Popper) [Ns 0.9% (P)] 50 ml IV QDAY Cefepime Inj [Maxipime Inj] 2 gm Med 11/11/24 04:32 Discontinued SODIUM CHLORIDE 0.9% (Popper) [Ns 0.9% (P)] 50 ml IV X1 Etomidate Inj [Amidate Inj] Med 11/11/24 03:28 Discontinued 20 mg .ROUTE .STK-MED ONE Etomidate Inj [Amidate Inj] Med 11/11/24 03:35 Discontinued 20 mg IVP X1 ONE Famotidine Inj [Pepcid Inj] Med 11/11/24 09:00 Ordered 20 mg IVP Q12HR Heparin Inj Med 11/11/24 09:00 Discontinued 5,000 unit SC Q12HR Ipratropium [place] Rt Poonam [Atrovent Rt Poonam] Med 11/11/24 04:43 Discontinued 0.5 mg INH X1 ONE Levalbuterol Rt [Xopenex Rt Poonam] Med 11/11/24 03:39 Discontinued 2.5 mg INH X1 ONE Levalbuterol Rt [Xopenex Rt Poon[place]] Med 11/11/24 04:43 Discontinued 2.5 mg INH X1 ONE MethylPREDNISolone. [SoluMEDROL Inj] Med 11/11/24 09:00 Active 40 mg IVP BID MethylPREDNISolone.* [SoluMEDROL Inj] Med 11/11/24 03:39 Discontinued 125 mg IVP X1 ONE Ondansetron Inj [Zofran Inj] Med 11/11/24 05:17 Ordered 4 mg IVP Q6H PRN Ondansetron Inj [Zofran Inj] Med 11/11/24 03:39 Discontinued 4 mg IVP X1 ONE Pharmacy Renal Dose Adjustment Med 11/11/24 05:27 Ordered 1 each XX PRN PRN Propofol 1,000 mg Ivpb [Diprivan Ivpb] Med 11/11/24 03:33 Discontinued 1,000 mg in 100 ml IV .STK-MED Propofol 1,000 mg Ivpb [Diprivan Ivpb] Med 11/11/24 03:38 Discontinued 1,000 mg in 100 ml IV 5 mcg/kg/min Propofol 1,000 mg Ivpb [Diprivan Ivpb] Med 11/11/24 04:27 Active 1,000 mg in 100 ml IV 5 mcg/kg/min Sodium Chloride 0.9% 1000 ml [Ns] 1,000 ml Med 11/11/24 03:39 Discontinued IV 999 mls/hr Sodium Chloride Rt Poonam 0.9% [NS Rt Poonam 0.9%] Med 11/11/24 04:43 Active 3 ml INH PRN PRN Sodium Chloride Rt [place]oonam 0.9% [NS Rt Poonam 0.9%] Med 11/11/24 03:39 Active 6 ml INH PRN PRN Sodium Chloride Rt Poonam 10% [NS Rt Poonam 10%] Med 11/11/24 03:46 Discontinued 5 ml INH X1 ONE Succinylcholine Inj [Anectine Inj] Med 11/11/24 03:35 Discontinued 100 mg IV X1 ONE Succinylcholine Inj [Anectine Inj] Med 11/11/24 03:28 Discontinued 200 mg .ROUTE .STK-MED ONE Vancomycin Inj 2,000 mg Med 11/11/24 04:32 Active Sodium Chloride 0.9% 500 ml [Ns] 500 ml IV X1 Vancomycin Pharmacy to Dose Med 11/11/24 09:00 Pending 1 each IV QDAY fentaNYL 2,500 MCG/250 ML BAG [Sublimaze Inj 2,500 MCG/ Med 11/11/24 04:14 Discontinued 250 ML BAG] 2,500 mcg in 250 ml IV .STK-MED fentaNYL 2,500 MCG/250 ML BAG [Sublimaze Inj 2,500 MCG/ Med 11/11/24 04:07 Discontinued 250 ML BAG] 2,500 mcg in 250 ml IV 25 mcg/hr fentaNYL 2,500 MCG/250 ML BAG [Sublimaze Inj 2,500 MCG/ Med 11/11/24 04:27 Active 250 ML BAG] 2,500 mcg in 250 ml IV 25 mcg/hr Code Status Routine Oth 11/11/24 05:17 Ordered Sputum Induction PRN RT 11/11/24 04:00 Ordered Volume Ventilator Stat RT 11/11/24 Active Vital Signs Vital signs: Vital Signs Pulse Rate 79 11/11/24 03:35 Respiratory Rate 20 11/11/24 03:35 Blood Pressure 200/76 H 11/11/24 03:35 Pulse Oximetry (%) 84 L 11/11/24 03:35 Oxygen Delivery Method CPAP 11/11/24 03:35 PROCEDURES: Intubation Time out performed: Yes sedative: Etomidate Mg Given: 20 paralytic: Succinylcholine Mg Given: 100 Laryngoscope: Desmond Assist Device Used: LMA ET Tube Size: 7.5 ET Tube Uncuffed: Yes Tube Secured Depth (cm): 22 Tube Secured Location: teeth Tube Placement Confirmation: equal breath sounds bilaterally and confirmation by capnometry Patient Tolerated Procedure: well and no complications Intubation Complications: none Shortness of Breath / Dyspnea MDM Narrative MDM Narrative:: Scribe Attestation: Justina Henry, am scribing for and in the presence of Dr. Santos. Provider Notation: Although this document has been carefully reviewed, there may still be some phonetic and other typographical errors.? These errors are purely grammatical due to imperfections in the software program and should not be construed in any way to? compromise the substance of the patient's medical care during this visit. 74 y/o female with Hx of CHF, COPD, and Renal Failure with Dialysis BIBA from home present with respiratory failure. Patient lives alone. Patient manage to call 911. When EMS arrived, she was awake with severe respiratory distress and audible wheezing. Neb treatment X 5 given with CPAP. EMS noted decreasing mental status. Unable to obtain history from the patient here. Patient data External records reviewed:: [facility] previous records (Reviewed prior ED records from 09/22/24. Patient was seen for Chest pain.) and EMS form Clinical information provided by:: EMS Social determinants that could affect healthcare access:: none Patient has the following chronic illnesses:: Murmur, Coronary Artery Disease, Congestive Heart Failure, Edema, Hypertension, Chronic Obstructive Pulmonary Disease (COPD), Ulcer, Hemorrhoids and Obesity, Renal Disease, Kidney Stones, Dialysis, Gonorrhea, Pelvic Inflammatory, Anemia, Depression and Anxiety How is presenting disease/condition affected by chronic disease/condition?: exacerbated by Evaluation data The following diagnostics were reviewed and interpreted by me:: EKG tracing(s) (My interpretation of the EKG is: Sinus rhythm (85 bpm) with nonspecific ST-T changes, no change from previous EKG. Dustin Santos MD) Lab and/or radiology exams considered but not ordered:: None Interpretation Summary: I reviewed all diagnostic test results: My interpretation of the EKG is: Sinus rhythm (85 bpm) with nonspecific ST-T changes, no change from previous EKG. My interpretation of the chest x-ray is opacities. Blood tests remarkable for WBC 13.5, D-dimer 2630, Cr 6.4, lactic acid 4.1, Ca 7.7, troponin 0.046, BNP 2006. UA showed positive leukocyte Estrace, 502 RBC, 1255 WBC. ABG showed pH 7.14, pCO 271, and pHCO3 24. Covid/Influenza: Medications / Prescriptions Medications or Prescriptions considered but not ordered:: None Medication administrations:: Medication Administration History Acetaminophen (Acetaminophen 325 Mg Tablet) 650 mg PO Q6H PRN PRN Reason: Fever >100.5 Stop: 12/11/24 05:16 Albuterol/Ipratropium (Albuterol/Ipratropium (Duoneb) Rt Poonam 3 Ml Nebu) 3 ml INH Q4HRRT RAYO Stop: 12/11/24 06:59 Amiodarone HCl (Amiodarone Hcl 200 Mg Tablet) 200 mg NG BID RAYO Stop: 12/11/24 08:59 Apixaban (Apixaban 2.5 Mg Tablet) 5 mg NG BID RAYO Stop: 12/11/24 08:59 Aspirin (Aspirin 81 Mg Chew) 81 mg NG QDAY RAYO Stop: 12/11/24 08:59 Atorvastatin Calcium (Atorvastatin Calcium 20 Mg Tablet) 40 mg NG HS RAYO Stop: 12/11/24 20:59 Famotidine (Famotidine Inj 10 Mg/Ml Vial 2 Ml) 20 mg IVP QDAY RYAO; Protocol Stop: 12/11/24 08:59 Fentanyl Citrate (Sublimaze Inj 2,500 Mcg/250 Ml Bag) 2,500 mcg in 250 mls @ 2.5 mls/hr IV .Q24H PRN; Protocol PRN Reason: PER PROTOCOL Stop: 11/16/24 04:06 Last Titration: 11/11/24 04:25 Dose: 125 mcg/hr, 12.5 mls/hr Documented By: Admin: 11/11/24 04:20 Dose: 125 mcg/hr, 12.5 mls/hr Documented By: LASHAUN Co-signed By: TESS Propofol (Diprivan Ivpb) 1,000 mg in 100 mls @ 2.072 mls/hr IV .Q24H PRN; Protocol PRN Reason: Per Protocol Stop: 12/11/24 03:37 Vancomycin HCl 2,000 mg/ (Sodium Chloride) 500 mls @ 150 mls/hr IV X1 ONE Stop: 11/11/24 07:51 Methylprednisolone Sodium Succinate (Methylprednisolone Sod Succ 40 Mg Vial) 40 mg IVP BID RAYO Stop: 11/18/24 08:59 Ondansetron HCl (Ondansetron Inj 2 Mg/Ml Inj 2 Ml) 4 mg IVP Q6H PRN; Protocol PRN Reason: NAUSEA OR VOMITING Stop: 12/11/24 05:16 Pharmacy Consult (Vancomycin Pharmacy To Dose 1 Each Each) 1 each IV QDAY RAYO Stop: 12/11/24 08:59 Pharmacy Consult (Pharmacy Renal Dose Adjustment 1 Ea) 1 each XX PRN PRN PRN Reason: CONSULT Stop: 12/11/24 05:26 Sodium Chloride (Sodium Chloride Rt Poonam 0.9% 3 Ml Nebu) 6 ml INH PRN PRN PRN Reason: SOLN Stop: 12/11/24 03:38 Sodium Chloride (Sodium Chloride Rt Poonam 0.9% 3 Ml Nebu) 3 ml INH PRN PRN PRN Reason: SOLN Stop: 12/11/24 04:42 Discontinued Medications Etomidate (Etomidate Inj 2 Mg/Ml Vial 10 Ml) 20 mg IVP X1 ONE Stop: 11/11/24 03:36 Last Admin: 11/11/24 03:37 Dose: 20 mg Documented By: TESS Etomidate (Etomidate Inj 2 Mg/Ml Vial 10 Ml) Confirm Administered Dose 20 mg .ROUTE .STK-MED ONE Stop: 11/11/24 03:29 Last Admin: 11/11/24 03:38 Dose: Not Given Documented By: TESS Non-Admin Reason: Override Medication Heparin Sodium (Porcine) (Heparin Sod Inj 5000 Unit/Ml Vial) 5,000 unit SC Q12HR RAYO Stop: 11/25/24 08:59 Propofol (Diprivan Ivpb) 1,000 mg in 100 mls @ 2.072 mls/hr IV .Q24H PRN; Protocol PRN Reason: Per Protocol Stop: 12/11/24 03:37 Last Titration: 11/11/24 04:13 Dose: 20 mcg/kg/min, 8.29 mls/hr Documented By: Titration: 11/11/24 04:08 Dose: 15 mcg/kg/min, 6.217 mls/hr Documented By: Titration: 11/11/24 04:03 Dose: 10 mcg/kg/min, 4.145 mls/hr Documented By: Admin: 11/11/24 03:58 Dose: 5 mcg/kg/min, 2.072 mls/hr Documented By: TESS Co-signed By: LASHAUN Sodium Chloride (Ns) 1,000 mls @ 999 mls/hr IV .Q1H1M ONE Stop: 11/11/24 04:39 Last Admin: 11/11/24 03:59 Dose: 999 mls/hr Documented By: TESS Propofol (Diprivan Ivpb) Confirm Administered Dose 1,000 mg in 100 mls @ ud IV .STK-MED ONE Stop: 11/11/24 03:34 Last Admin: 11/11/24 04:00 Dose: Not Given Documented By: TESS Non-Admin Reason: Override Medication Fentanyl Citrate (Sublimaze Inj 2,500 Mcg/250 Ml Bag) 2,500 mcg in 250 mls @ 2.5 mls/hr IV .Q24H PRN; Protocol PRN Reason: PER PROTOCOL Stop: 11/16/24 04:06 Fentanyl Citrate (Sublimaze Inj 2,500 Mcg/250 Ml Bag) Confirm Administered Dose 2,500 mcg in 250 mls @ ud IV .STK-MED ONE Stop: 11/11/24 04:15 Last Admin: 11/11/24 04:31 Dose: Not Given Documented By: LASHAUN Non-Admin Reason: Override Medication Cefepime HCl 2 gm/ Sodium (Chloride) 50 mls @ 100 mls/hr IV X1 ONE Stop: 11/11/24 05:01 Ipratropium [place] (Ipratropium Rt 0.5 Mg/ 2.5 Ml Nebu) 0.5 mg INH X1 ONE Stop: 11/11/24 04:44 Last Admin: 11/11/24 04:51 Dose: 0.5 mg Documented By: TJ Levalbuterol HCl (Levalbuterol Rt 1.25 Mg/0.5 Ml Nebu) 2.5 mg INH X1 ONE Stop: 11/11/24 03:40 Last Admin: 11/11/24 04:17 Dose: 2.5 mg Documented By: TJ Levalbuterol HCl (Levalbuterol Rt 1.25 Mg/0.5 Ml Nebu) 2.5 mg INH X1 ONE Stop: 11/11/24 04:44 Methylprednisolone Sodium Succinate (Methylprednisolone Sod Succ 62.5 Mg/Ml 2ml Vial) 125 mg IVP X1 ONE Stop: 11/11/24 03:40 Last Admin: 11/11/24 03:59 Dose: 125 mg Documented By: TESS Ondansetron HCl (Ondansetron Inj 2 Mg/Ml Inj 2 Ml) 4 mg IVP X1 ONE; Protocol Stop: 11/11/24 03:40 Last Admin: 11/11/24 04:00 Dose: 4 mg Documented By: TESS Sodium Chloride (Sodium Chloride Rt 10% 15 Ml Nebu) 5 ml INH X1 ONE Stop: 11/11/24 03:47 Succinylcholine Chloride (Succinylcholine Inj 20 Mg/Ml Vial 10 Ml) 100 mg IV X1 ONE Stop: 11/11/24 03:36 Last Admin: 08/08/25 03:39 Dose: 100 mg Documented By: TESS Succinylcholine Chloride (Succinylcholine Inj 20 Mg/Ml Vial 10 Ml) Confirm Administered Dose 200 mg .ROUTE .STK-MED ONE Stop: 11/11/24 03:29 Last Admin: 11/11/24 04:00 Dose: Not Given Documented By: TESS Non-Admin Reason: Override Medication Treatment here from me included: Intubation (see procedure note), cefepime and vancomycin, Solu-Medrol and Xopenex neb treatments, etomidate and succinylcholine for intubation, and propofol drip for sedation. Consultations Consultation(s) initiated? (list below): Yes Consultation #1 (Physician, Specialty, Details): 4517: I discussed the case with our ICU service. About the presentation and exam and diagnostics and treatments here. And need of further care in the hospital. Will accept the patient. Diagnosis Shortness of Breath Differential Diagnosis: acute exacerbation of chronic obstructive airways disease, congestive heart failure, community acquired pneumonia, asthma with exacerbation, pulmonary embolism and other (UTI, sepsis, COVID, influenza, dehydration, electrolyte abnormalities) Most likely diagnosis given after review of the tests above:: Acute respiratory failure with hypoxia and hypercapnia, COPD exacerbation, Respiratory acidosis, Pneumonia, CHF (congestive heart failure), UTI (urinary tract infection), ESRD (end stage renal disease), Sepsis, Hypocalcemia Admission Indicated Admission indicated?: indicated Explain why admission is indicated or not indicated:: Acute respiratory failure with hypoxia and hypercapnia, COPD exacerbation, Respiratory acidosis, Pneumonia, CHF (congestive heart failure), UTI (urinary tract infection), ESRD (end stage renal disease), Sepsis, Hypocalcemia Admission Request Was there a request for admission?: Yes Admission Attestation Admission request attestation: Discussed case with our ICU service regarding admission. Discussed patients ED course, exam findings, labs, and radiology results. Agreed to accept the patient for admission. Disposition Plan Disposition Plan: Admit Critical Care Time Critical Care Time Critical Care Time: Yes Total Critical Care Time (min.): 36 Attestation: Due to a high probability of clinically significant, life threatening deterioration, the patient required my highest level of preparedness to intervene emergently and I personally spent this critical care time directly and personally managing the patient. This critical care time included obtaining a history; examining the patient; ordering and review of studies; arranging urgent treatment with development of a management plan; evaluation of patient's response to treatment; frequent reassessment; and discussions with family and other providers. It was exclusive of separately billable procedures and treating other patients and teaching time. Dustin Santos MD Discharge Plan Plan Patient Disposition: Admit Acute Care w/in Hospital Prescriptions/Referrals Prescriptions/Med Rec: No Action metoprolol tartrate 50 mg tablet 25 mg PO BID Patient Comments: TAKE ONE TABLET BY MOUTH TWICE DAILY Rx Instructions: take 1/2 tab twice daily Trelegy Ellipta 100-62.5-25 mcg blister with device 1 inh inhalation Q24H Qty: 60 0RF albuterol sulfate 90 mcg/actuation HFA aerosol inhaler 1 puff inhalation BIDPRN PRN (Reason: shortness of breath or wheezing) amoxicillin-pot clavulanate [Augmentin] 500-125 mg tablet 1 tab PO Q12H Qty: 14 0RF Rx Instructions: Dialysis days: Take dose AFTER dialysis session. atorvastatin 20 mg tablet 20 mg PO QDAY Patient Comments: TAKE ONE TABLET BY MOUTH EVERY DAY FOR CHOLESTEROL amiodarone 200 mg tablet 200 mg PO BID Patient Comments: TAKE ONE TABLET BY MOUTH TWICE DAILY FOR THE HEART calcium acetate(phosphat bind) 667 mg capsule 667 mg PO TID Patient Comments: TAKE TWO CAPSULES BY MOUTH THREE TIMES DAILY WITH FOOD Rx Instructions: take 3 capule by mouth three times daily Eliquis 5 mg tablet 5 mg PO BID Patient Comments: TAKE ONE TABLET BY MOUTH TWICE DAILY FOR THE HEART Entresto 24-26 mg tablet 1 tab PO BID Patient Comments: TAKE ONE TABLET BY MOUTH TWICE DAILY Referrals: No Primary/Family,Physician [Primary Care Provider] - In 1 week Problem List Clinical Impression: Acute respiratory failure with hypoxia and hypercapnia, COPD exacerbation, Respiratory acidosis, Pneumonia, CHF (congestive heart failure), UTI (urinary tract infection), ESRD (end stage renal disease), Sepsis, Hypocalcemia Patient/Caregiver Discharge Instructions Print Language: Czech Stand Alone Forms: Pratima Award Info., Patient Portal Info Letter
[2024-11-11] MEDS: SUCCINYLCHOLINE INJ 20 MG/ML VIAL 10 ML 100 MG IV (03:39)
--- NOTE | 2024-11-11 03:39 | EKG_ITS ---
[facility] Test Date: 2024-11-11 Pat Name: REILLY GRADY Department: Room: - Gender: Female Entry Level Account Manager: : 1950 Requested By: Dustin Dunham Order Number: [id number] Reading MD: Dustin Dunham Measurements Intervals [place] Rate: 70 P: -81 VT: 247 QRS: 35 QRSD: 118 T: 121 QT: 455 QTc: 492 Interpretive Statements ELECTRONIC ATRIAL PACEMAKER LEFT VENTRICULAR HYPERTROPHY AND ST-T CHANGE [VOLTAGE CRITERIA PLUS ST/T ABNORMALITY] MARKED ST ELEVATION, CONSIDER INFERIOR INJURY [MARKED ST ELEVATION W/O NORMALLY INFLECTED T-WAVE IN II/aVF] ACUTE DC Compared to ECG 09/22/2024 19:13:08 Sinus rhythm no longer present ST (T wave) deviation still present Myocardial infarct finding still present /store/S0/[id number].pdf
[2024-11-11] MEDS: PROPOFOL 1,000 MG IVPB 1,000 MG/100 ML VIAL 2.072 MG IV (03:58)
[2024-11-11] MEDS: MethylPREDNISolone SOD SUCC 62.5 MG/ML 2ML VIAL 125 MG IVP (03:59)
[2024-11-11] MEDS: SODIUM CHLORIDE 0.9% 1000 ML 1,000 ML 999 ML IV (03:59)
[2024-11-11] MEDS: ONDANSETRON INJ 2 MG/ML INJ 2 ML 4 MG IVP (04:00)
[2024-11-11 04:08] LABS: Base Excess -6 (-3-3); HCO3 24 mEq/L (20-26); Inspired Oxygen, FIO2 21 %; O2 Saturation 97 % (91-98); PCO2 71 mmHg (32.0-48.0); PO2 116 mmHg (83-108)
[2024-11-11 04:16] LABS: Basophils # (Auto) 0.1 Thou/mm3 (0.0-0.2); Basophils % (Auto) 1 % (0-2.5); Eosinophils # (Auto) 0.4 Thou/mm3 (0.0-0.5); Eosinophils % (Auto) 3 % (0-10); Hematocrit 37.1 % (36.0-46.0); Hemoglobin 11.1 g/dL (12.0-16.0); Immature Granulocytes Auto 0.09 Thou/mm3 (0.00-0.00); Lymphocytes # (Auto) 5.6 Thou/mm3 (1.0-4.8); Lymphocytes % (Auto) 42 % (10-50); Mean Corpuscular HGB Conc 29.9 g/dl (31.0-37.0); Mean Corpuscular Hemoglobin 28.6 pg (25.0-35.0); Mean Corpuscular Volume 96 fL (80-100); Monocytes # (Auto) 1.6 Thou/mm3 (0.0-0.8); Monocytes % (Auto) 12 % (0-12); Neutrophils # (Auto) 5.7 Thou/mm3 (1.8-7.7); Neutrophils % (Auto) 42 % (37-80); Nucleated Red Blood Cell # 0.00 Thou/mm3 (0.00-0.00); Nucleated Red Blood Cell % 0 /100 WBC (0); Platelet Count 177 Thou/mm3 (140-440); RDW Standard Deviation 63.4 fL (36.4-46.3); Red Blood Count 3.88 Miln/mm3 (4.00-5.20); White Blood Count 13.5 Thou/mm3 (3.6-11.0)
[2024-11-11 04:17] LABS: Allen Test Performed/OK; Puncture Site Right Radial
[2024-11-11 04:17] LABS: Collection Type, Urine Clean Catch
[2024-11-11] MEDS: LEVALBUTEROL RT 1.25 MG/0.5 ML NEBU 2.5 MG INH (04:17)
[2024-11-11 04:18] LABS: pH, Arterial 7.14 (7.35-7.45)
[2024-11-11 04:18] LABS: Lactate (Lactic Acid) 4.1 mMol/L (0.4-2.0)
[2024-11-11] MEDS: fentaNYL 2,500 MCG/250 ML BAG 2,500 MCG/250 ML BAG 12.5 MCG IV (04:20)
[2024-11-11 04:25] LABS: Beta Hydroxybutyrate 0.1 mmol/L (<0.6)
[2024-11-11 04:35] LABS: Ammonia 17 uMol/L (11-32)
[2024-11-11 04:42] LABS: D-Dimer 2630 ng/mL (<600)
--- NOTE | 2024-11-11 04:50 | XR_ITS ---
Examination: CT brain head without contrast. 2-D sagittal coronal reconstructions Date and time of exam:November 11, 2024 1046 hours Comparison September 29, 2023 INDICATIONS: Altered mental status today, history stroke alert September 29, 2023 CTDI: vol (mGy):49.8 DLP: (mGycm):1129 Technique: Multiple CT axial sections of the brain have been obtained, 5 mm slice thickness. Contrast has not been administered. 2-D sagittal, coronal reconstructions have been obtained Low dose protocols were performed. One or more of the following dose reduction techniques were used; automated exposure control, adjustment of the mA and/or KV according to patient size, use of iterative reconstruction technique. Findings: No significant ventricular enlargement. 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 No mass effect or midline shift Basal cisterns are not remarkable. Fourth ventricle is midline. Cranial vault intact. Impression: Negative for acute hemorrhage, mass effect or midline shift Advise clinical correlation follow-up accordingly
[2024-11-11] MEDS: IPRATROPIUM RT 0.5 MG/ 2.5 ML NEBU INH (04:51)
--- NOTE | 2024-11-11 04:55 | PC.RT ---
@[id number] Arriaga to increase vt to 380, respiratory rate to 22, decrease fio2 to 80%
[2024-11-11 05:01] LABS: B-Type Natriuretic Peptide 2006 pg/mL (0-100)
[2024-11-11 05:02] LABS: Alanine Aminotransferase < 7 U/L (10-49); Albumin, Serum 4.2 gm/dL (3.4-4.8); Albumin/Globulin Ratio 2.0 (1.2-2.2); Alkaline Phosphatase 128 U/L (46-116); Anion Gap 16 (7-16); Aspartate Amino Transferase < 10 U/L (0-34); BUN/Creatinine Ratio 6 Ratio (12-20); Bilirubin,Direct 0.1 mg/dL (0.0-0.3); Bilirubin,Total 0.4 mg/dL (0.3-1.2); Blood Urea Nitrogen 39 mg/dL (9-23); C-Reactive Protein < 0.5 mg/dL (0.0-0.9); Calcium 7.7 mg/dL (8.3-10.6); Calcium (Corrected) 7.7 mg/dL (8.5-10.1); Carbon Dioxide 20.1 mMol/L (20.0-31.0); Chloride 99 mMol/L (98-107); Creatine Kinase 46 U/L (34-171); Creatinine (Component) 6.4 mg/dL (0.6-1.3); Estimated Creatinine Clearance 7.3 mL/min (>60); Free T4 (Free Thyroxine) 0.84 ng/dL (0.89-1.76); Globulin 2.1 gm/dL (2.3-3.5); Glucose 184 mg/dL (74-106); Lipase 68 U/L (12-53); Magnesium 2.2 mg/dL (1.6-2.6); Osmolality,Calculated 284 (275-295); Potassium 4.6 mMol/L (3.4-5.1); Procalcitonin 0.28 ng/ml (0.0-0.49); Sodium 135 mMol/L (136-145); Thyroid Stimulating Hormone 6.61 uIU/mL (0.55-4.78); Total Protein 6.3 gm/dL (5.7-8.2); eGFR 6 See Note
[2024-11-11 05:03] LABS: Bilirubin,Urine Negative (Negative); Blood,Urine 2+ (Negative); Culture Indicated,Urine Contaminated; Glucose, Urine Negative (Negative); Ketones,Urine Negative (Negative); Leukocyte Esterase,Urine Positive (Negative); Nitrite,Urine Negative (Negative); PH,Urine 8.0 (5.0-7.0); Protein,Urine 2+ (Neg - Trace); RBC,Urine 502 /hpf (0-3); Specific Gravity,Urine 1.008 (1.001-1.035); Squamous Epithelial Cell,Urine 29 /hpf (0-5); Urobilinogen,Urine Negative mg/dL (0.0-1.0); WBC,Urine 1255 /hpf (0-5)
[2024-11-11 05:04] LABS: Clarity,Urine Turbid (Clear/Hazy); Color,Urine Orange (Lt Yel-Yel)
[2024-11-11 05:07] LABS: Troponin I 0.046 ng/mL (0.0-0.045)
[2024-11-11 05:11] LABS: INR 1.1 (0.9-1.3); Partial Thromboplastin Time 28.3 Seconds (22.0-36.0); Prothrombin Time 11.7 Seconds (9.0-12.2)
[2024-11-11 05:15] LABS: Sed Rate (ESR) 18 mm/hr (0-30)
[2024-11-11 05:21] LABS: Path Review Blood Smear Sent to Pathologist
--- NOTE | 2024-11-11 05:22 | XR_ITS ---
Examination: CT chest, without intravenous contrast. Sagittal and coronal 2-D reconstructions. Exam date and time: November 21, 2024 1052 hours Comparison November 05, 2020 INDICATIONS: Hypoxic respiratory failure today, postintubation, altered mental status CTDI:vol (mGy) 18.7 DLP: (mGycm) 706 Technique: Multiple 3.0 mm axial sections of the chest to been obtained. Bone and lung density settings are obtained. Sagittal and coronal 2-D reconstructions have been obtained. Low dose protocols were performed. One or more of the following dose reduction techniques were used; automated exposure control, adjustment of the mA and/or KV according to patient size, use of iterative reconstruction technique. Findings: Bilateral subcentimeter thyroid nodules Endotracheal tube tip 5.2 cm above bam Heavy calcification thoracic aorta no aneurysm dilatation Pulmonary artery segments are not enlarged Moderate enlargement cardiac contour with heavy mitral valvular and left ventricle calcifications Prominent vascular congestion with perihilar edema Bibasilar consolidation most consistent with significant pneumonia Small bilateral pleural effusions 5 mm pulmonary nodule left upper lobe image 81 12 mm pulmonary nodule right upper lobe image 89 6 mm pulmonary nodule right upper lobe image 126 5 mm pulmonary nodule left upper lobe image 128 5 mm pulmonary nodule right upper lobe image 138 12 mm pulmonary nodule right upper lobe image 166 4 mm pulmonary nodule right middle lobe image 197 Orogastric tube in stomach Cardiac leads satisfactory position Left internal jugular central line tip satisfactory position No pneumothorax No visualized liver or splenic lesion Gallstones Heavy abdominal aortic calcification transverse dimension upper abdominal aorta 3.4 cm Atrophic end-stage kidneys IMPRESSION: Bilateral thyroid nodules Mild heart failure with moderate enlargement cardiac contour Bibasilar pneumonia Numerous bilateral position metastatic pulmonary nodules Small bilateral pleural effusions. Orogastric tube in the stomach. Endotracheal tube tip 5.2 cm above bam Left internal jugular central line tip satisfactory position. Cholelithiasis
--- NOTE | 2024-11-11 06:00 | XR_ITS ---
Examination: AP chest single view TECHNIQUE: AP portable supine chest single view Date and time: Percy Cheng and 48 hours, comparison November 11, 2024 0347 hours INDICATIONS: Hypoxic respiratory failure post central line placement. FINDINGS: Mild CHF Moderate enlargement cardiac contour with prominent vascular congestion perihilar edema Pneumonia at both lung bases Left internal jugular central line tip SVC, no pneumothorax Endotracheal tube tip 9.6 cm above [place] Stable position cardiac leads Orogastric tube is in the stomach, the tip is below the lobe of the film Prominent osteopenia IMPRESSION: Interval left internal jugular central line tip SVC satisfactory position, no pneumothorax
[2024-11-11 06:23] LABS: Cardiac Risk Estimate 3.4 RATIO (3.7-5.6); Cholesterol 186 mg/dL (132-200); HDL Cholesterol 55 mg/dL (40-60); LDL Cholesterol,Calculated 116 mg/dL (0-130); Triglycerides 75 mg/dL (30-150)
[2024-11-11] MEDS: CEFEPIME INJ 2 GM in SODIUM CHLORIDE 0.9% (Popper) 50 ML IV (06:55)
[2024-11-11 07:07] LABS: Reflex Lactate? Y
--- NOTE | 2024-11-11 07:08 | PD.RESHP ---
Documentation for date of: 11/11/24 [facility] History of Present Illness History of present illness: The patient is a 74-year-old female with significant past medical history of CHF, coronary artery disease with multiple MIs s/p stents, COPD on 3 L home oxygen, ESRD on hemodialysis, Thursday, Thursday, , Thursday, A-fib with pacemaker, brought in by EMS with chief complaint of acute SOB. The patient called EMS due to SOB, and she was saturating on 80s at her home. She was given DuoNeb on the way to hospital, and when she presented to ED, her saturation was 84 on high flow CPAP. She was already altered, and was intubated. Further history were unobtainable, as patient was already intubated during my evaluation. In the ED her vitals were significant for a blood pressure of 200/76, pulse 79, RR 20, labs are significant for white count 13.5, RBC 3.88, hemoglobin 11.1, D-dimer 2630, ABG revealed pH of 7.14, pCO2 71, pO2 116, bicarb 24, sodium 135, potassium 4.6, BUN 39, creatinine 6.4, lactic acid 4.1, corrected calcium 7.7, magnesium 2.2, AST/ALT/ALP less than 10, less than 10/05/2027 respectively. Ammonia was 17, troponin 0.046, CRP less than 0.5, BNP 2006, lipid panel revealed LDL 116, lipase 68, TSH 6.61, free T4 0.84. UA revealed orange urine, 2+ protein, 2+ blood, leukocyte Estrace positive, RBC 502, WBC 1255, chest x-ray revealed right lower lobe pneumonia, EKG revealed old GA. The patient received methylprednisone 125 Mg IV x 1, bolus fluid 1 L at the rate 250 cc/h, cefixime 2 g IV x 1, and started on vancomycin. The patient was intubated and admitted to ICU for further management of acute hypoxic hypercapnic respiratory failure secondary to COPD exacerbation. PMH: As mentioned above SHX: Hysterectomy, fistula placement on the left arm, pacemaker implantation social history: No use of illicit drug use, alcohol use, quit smoking in 2020, smoked 1.5 daily for unknown number of years medications: To be reconciled Allergies: No known allergies Review of Systems Review of Systems ROS Unobtainable: unobtainable due to mental status and due to endotracheal tube Exam Vital Signs Temp Pulse Resp BP Pulse Ox O2 Del Method O2 Flow Rate 98.6 F 70 22 H 104/43 L 100 Mechanical Ventilation 80 11/11/24 04:35 11/11/24 06:19 11/11/24 04:51 11/11/24 06:19 11/11/24 06:19 11/11/24 04:35 11/11/24 04:35 FiO2 60 11/11/24 06:19 Narrative Exam General: No acute distress, sedated, intubated and mechanically ventilated HEENT: Moist mucous membranes, oropharynx clear Neck: Supple, No masses, No JVD CVS: S1S2 Regular rate and rhythm, No murmurs, rubs or gallops Lungs: Coarse rhonchi and expiratory wheeze throughout the lung field Abd: Soft, NT/ND, +BS, no organomegaly Ext: No edema, warm and well perfused, prominent fistula on left arm and forearm Skin: No rash Psych: Unobtainable Results: Labs 11/11/24 04:00 11/11/24 04:00 Labs: Short CBC 11/11/24 Range/Units 04:00 WBC 13.5 H (3.6-11.0) Thou/mm3 Hgb 11.1 L (12.0-16.0) g/dL Hct 37.1 (36.0-46.0) % Plt Count 177 (140-440) Thou/mm3 BMP 11/11/24 04:00 Sodium 135 L Potassium 4.6 Chloride 99 Carbon Dioxide 20.1 BUN 39 H Creatinine 6.4 H* Glucose 184 H Calcium 7.7 L Cardiac Enzymes 11/11/24 Range/Units 04:00 Total Creatine Kinase 46 (34-171) U/L Troponin I 0.046 H* (0.0-0.045) ng/mL Liver Function 11/11/24 Range/Units 04:00 Total Bilirubin 0.4 (0.3-1.2) mg/dL Direct Bilirubin 0.1 (0.0-0.3) mg/dL AST < 10 (0-34) U/L ALT < 7 L (10-49) U/L Alkaline Phosphatase 128 H (46-116) U/L Albumin 4.2 (3.4-4.8) gm/dL Urine 11/11/24 Range/Units 04:10 Urine Color [place] A (Lt Yel-Yel) Urine Clarity Turbid A (Clear/Hazy) Urine pH 8.0 H (5.0-7.0) Ur Specific [place] 1.008 (1.001-1.035) Urine Protein 2+ A (Neg - Trace) Urine Glucose (UA) Negative (Negative) ABG Interpretation ABG results: 11/11/24 04:01 ABG pH 7.14 L* ABG pCO2 71 H* ABG pO2 116 H ABG HCO3 24 ABG O2 Saturation 97 ABG Base Excess -6 L Quality Measures Quality Measures none Advance care planning discussed with:: other (Family member.) Medications Home Medications and Allergies Home Medications ?Medication ?Instructions ?Recorded ?Confirmed ?Type metoprolol tartrate 50 mg tablet 25 mg PO BID 09/20/19 10/02/23 History amiodarone 200 mg tablet 200 mg PO BID 08/20/23 10/02/23 History apixaban 5 mg tablet (Eliquis) 5 mg PO BID 08/20/23 10/02/23 History atorvastatin 20 mg tablet 20 mg PO QDAY 08/20/23 10/02/23 History calcium acetate(phosphat bind) 667 667 mg PO TID 08/20/23 10/02/23 History mg capsule sacubitril 24 mg-valsartan 26 mg 1 tab PO BID 08/20/23 10/02/23 History tablet (Entresto) albuterol sulfate 90 mcg/actuation 1 puff inhalation BIDPRN PRN 10/02/23 10/02/23 History aerosol inhaler shortness of breath or wheezing Allergies Allergy/AdvReac Type Severity Reaction Status Date / Time No Known Allergies Allergy Verified 09/22/24 15:46 Visit Medications Acetaminophen (Acetaminophen 325 Mg Tablet) 650 mg PO Q6H PRN PRN Reason: Fever >100.5 Stop: 12/11/24 05:16 Albuterol/Ipratropium (Albuterol/Ipratropium (Duoneb) Rt Poonam 3 Ml Nebu) 3 ml INH Q4HRRT RAYO Stop: 12/11/24 06:59 Amiodarone HCl (Amiodarone Hcl 200 Mg Tablet) 200 mg NG BID RAYO Stop: 12/11/24 08:59 Apixaban (Apixaban 2.5 Mg Tablet) 5 mg NG BID [facility] Stop: 12/11/24 08:59 Aspirin (Aspirin 81 Mg Chew) 81 mg NG QDAY [facility] Stop: 12/11/24 08:59 Atorvastatin Calcium (Atorvastatin Calcium 20 Mg Tablet) 40 mg NG HS [facility] Stop: 12/11/24 20:59 Famotidine (Famotidine Inj 10 Mg/Ml Vial 2 Ml) 20 mg IVP QDAY RAYO; Protocol Stop: 12/11/24 08:59 Hydralazine HCl (Hydralazine Inj 20 Mg/Ml Vial) 10 mg IVP Q6H PRN PRN Reason: SBP>180 Stop: 12/11/24 05:29 Fentanyl Citrate (Sublimaze Inj 2,500 Mcg/250 Ml Bag) 2,500 mcg in 250 mls @ 2.5 mls/hr IV .Q24H PRN; Protocol PRN Reason: PER PROTOCOL Stop: 11/16/24 04:06 Last Titration: 11/11/24 04:25 Dose: 125 mcg/hr, 12.5 mls/hr Propofol (Diprivan Ivpb) 1,000 mg in 100 mls @ 2.072 mls/hr IV .Q24H PRN; Protocol PRN Reason: Per Protocol Stop: 12/11/24 03:37 Cefepime HCl 1 gm/ Sodium (Chloride) 50 mls @ 100 mls/hr IV QDAY [facility] Stop: 11/19/24 08:59 Vancomycin HCl (Vancomycin/Water 1250 Mg Ivpb) 250 mls @ 120 mls/hr IV X1 ONE Stop: 11/11/24 09:34 Calcium Gluconate/Sodium Chloride (Calcium Gluc/Ns 1000mg Ivpb) 1,000 mg in 50 mls @ 50 mls/hr IV X1 ONE Stop: 11/11/24 07:34 Methylprednisolone Sodium Succinate (Methylprednisolone Sod Succ 40 Mg Vial) 40 mg IVP BID [facility] Stop: 11/18/24 08:59 Ondansetron HCl (Ondansetron Inj 2 Mg/Ml Inj 2 Ml) 4 mg IVP Q6H PRN; Protocol PRN Reason: NAUSEA OR VOMITING Stop: 12/11/24 05:16 Pharmacy Consult (Vancomycin Pharmacy To Dose 1 Each Each) 1 each IV QDAY PRN PRN Reason: PROTOCOL Stop: 12/11/24 08:59 Pharmacy Consult (Pharmacy Renal Dose Adjustment 1 Ea) 1 each XX PRN PRN PRN Reason: CONSULT Stop: 12/11/24 05:26 Sevelamer Carbonate (Sevelamer Carbonate 0.8 Gm Packet (Non-Formulary)) 0.8 gm NG TID [facility] Stop: 12/11/24 13:59 Sodium Chloride (Sodium Chloride Rt Poonam 0.9% 3 Ml Nebu) 6 ml INH PRN PRN PRN Reason: SOLN Stop: 12/11/24 03:38 Sodium Chloride (Sodium Chloride Rt [place] 0.9% 3 Ml Nebu) 3 ml INH PRN PRN PRN Reason: SOLN Stop: 12/11/24 04:42 Discontinued Medications Etomidate (Etomidate Inj 2 Mg/Ml Vial 10 Ml) 20 mg IVP X1 ONE Stop: 11/11/24 03:36 Last Admin: 11/11/24 03:37 Dose: 20 mg Heparin Sodium (Porcine) (Heparin Sod Inj 5000 Unit/Ml Vial) 5,000 unit SC Q12HR RAYO Stop: 11/25/24 08:59 Propofol (Diprivan Ivpb) 1,000 mg in 100 mls @ 2.072 mls/hr IV .Q24H PRN; Protocol PRN Reason: Per Protocol Stop: 12/11/24 03:37 Last Titration: 11/11/24 04:13 Dose: 20 mcg/kg/min, 8.29 mls/hr Sodium Chloride (Ns) 1,000 mls @ 999 mls/hr IV .Q1H1M ONE Stop: 11/11/24 04:39 Last Infusion: 11/11/24 05:01 Dose: Infused Fentanyl Citrate (Sublimaze Inj 2,500 Mcg/250 Ml Bag) 2,500 mcg in 250 mls @ 2.5 mls/hr IV .Q24H PRN; Protocol PRN Reason: PER PROTOCOL Stop: 11/16/24 04:06 Cefepime HCl 2 gm/ Sodium (Chloride) 50 mls @ 100 mls/hr IV X1 ONE Stop: 11/11/24 05:01 Last Admin: 11/11/24 06:55 Dose: 100 mls/hr Vancomycin HCl 2,000 mg/ (Sodium Chloride) 500 mls @ 150 mls/hr IV X1 ONE Stop: 11/11/24 07:51 Ipratropium [place] (Ipratropium Rt 0.5 Mg/ 2.5 Ml Nebu) 0.5 mg INH X1 ONE Stop: 11/11/24 04:44 Last Admin: 11/11/24 04:51 Dose: 0.5 mg Levalbuterol HCl (Levalbuterol Rt 1.25 Mg/0.5 Ml Nebu) 2.5 mg INH X1 ONE Stop: 11/11/24 03:40 Last Admin: 11/11/24 04:17 Dose: 2.5 mg Levalbuterol HCl (Levalbuterol Rt 1.25 Mg/0.5 Ml Nebu) 2.5 mg INH X1 ONE Stop: 11/11/24 04:44 Methylprednisolone Sodium Succinate (Methylprednisolone Sod Succ 62.5 Mg/Ml 2ml Vial) 125 mg IVP X1 ONE Stop: 11/11/24 03:40 Last Admin: 11/11/24 03:59 Dose: 125 mg Ondansetron HCl (Ondansetron Inj 2 Mg/Ml Inj 2 Ml) 4 mg IVP X1 ONE; Protocol Stop: 11/11/24 03:40 Last Admin: 11/11/24 04:00 Dose: 4 mg Sodium Chloride (Sodium Chloride Rt 10% 15 Ml Nebu) 5 ml INH X1 ONE Stop: 11/11/24 03:47 Succinylcholine Chloride (Succinylcholine Inj 20 Mg/Ml Vial 10 Ml) 100 mg IV X1 ONE Stop: 11/11/24 03:36 Last Admin: 11/11/24 03:39 Dose: 100 mg Assessment & Plan Plan The patient is a 74-year-old female with significant past medical history of CHF, coronary artery disease with multiple MIs s/p stents, COPD on 3 L home oxygen, ESRD on hemodialysis, Thursday, Thursday, , Thursday, A-fib with pacemaker, brought in by EMS with chief complaint of acute SOB. The patient was intubated and admitted to ICU for further management of acute hypoxic hypercapnic respiratory failure secondary to COPD exacerbation. 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 CXR revealing right basilar pneumonia. - Will continue to treat COPD exacerbation CVS: #Possible CHF exacerbation, 2/2 #Volume overload in the setting of ESRD Patient presented with acute SOB, was found to have BNP 2000, requiring higher oxygen than usual at home Chest x-ray significant for moderate vascular congestions - Urgent hemodialysis - Low-sodium diet - Fluid restriction to 1500 cc daily Pulmonology: #Acute hypoxic hypercapnic respiratory failure 2/ #COPD exacerbation Likely secondary to community-acquired pneumonia Chest x-ray revealed right basal pneumonia, ABG revealed pH of 7.14, pCO2 71, and white count 13.5 - Patient is sedated, intubated and mechanically ventilated - Received methylprednisolone 125 Mg IV x 1 in the ED - Started on cefepime and vancomycin - Blood culture and ET secretions culture pending GI: - No acute issues Renal: #Combined respiratory and metabolic acidosis #ESRD on HD pH of 7.14, pCO2 71, lactic acid 4.1 - Urgent hemodialysis -[employer] Dr. Mishra consulted, appreciate recommendations -Continue to treat COPD exacerbation #Hypocalcemia Presented with calcium of 7.7 - Started on calcium carbonate 600 Mg twice daily via NG tube Hematology: #Leukocytosis Secondary to pneumonia and COPD exacerbation - Continue to treat underlying cause #Normocytic anemia DDx: Inflammatory anemia due to chronic kidney disease, versus nutritional deficiency versus malabsorption - Workup as an outpatient basis ID: #Community-acquired pneumonia - Antibiotic therapy treatment as above -Pending blood culture and ET secretion culture Health maintenance: Dispo: Patient admitted to ICU for further management of acute hypoxic hypercapnic respiratory failure secondary to COPD exacerbation Diet: N.p.o. Lines: Left IJ central line, peripheral lines DVT prophylaxis: Eliquis 5 Mg twice daily CODE STATUS: Full code The patient's management plan was discussed with my attending physician MD Sebastien Luna MD, PGY3 Attending Provider Attestation/Addendum I attest that I was physically present for the evaluation, physical examination, lab and imaging review of the patient with the residents. I discussed the case with the residents and agree with the findings and plans of care as documented above. After examination of the patient and review of the clinical data I feel that this patient needs admission to the hospital for further treatment/evaluation. Patient is a 74 years old female with past medical history of CHF, CAD with multiple stents, COPD on home oxygen, ESRD on hemodialysis, A-fib with pacemaker who presented to the ED with complaint of shortness of breath. As per the EMS, patient was having saturation down up to 80s at home. She continued to have low saturation while on CPAP, patient was also confused. She was intubated in the ED for acute on chronic respiratory failure. In the ED initial vitals were significant for blood pressure of 200/76, respiratory rate 20. Saturating well on mechanical ventilator. Lab results were significant for WBC of 13.5, hemoglobin 11.1, D-dimer 2630, BUN/creatinine 39/6.4, lactic acid 4.1, calcium 7.7, troponin 0.046, BNP 2006, TSH 6.61, T40.84. ABG was done shortly after intubation, showed pH of 7.14, pCO2 71, PO216. Urinalysis showed 1255 WBCs, 502 RBCs, positive leukocyte esterase. X-ray was obtained, which showed right lower lobe pneumonia. EKG showed ST changes consistent with findings from her old GA. We will admit the patient to ICU for acute on chronic hypoxic hypercapnic respiratory failure. Patient is started on mechanical ventilator, we will adjust her minute ventilation to help with this CO2 retention. Started on broad-spectrum IV antibiotics with cefepime and vancomycin. Patient received loading dose of methylprednisolone in the ED, we will continue with IV Solu-Medrol. Started on propofol and fentanyl for sedation. We will start fluid restriction. Consulted nephrology for arrangement of dialysis. Patient received calcium gluconate and started on calcium carbonate. Cultures have been ordered. Resumed home amiodarone and Eliquis for A-fib. Total critical care time spent: 41 minutes Gilma Rojas MD
--- NOTE | 2024-11-11 07:09 | PD.RESPROC ---
PROCEDURES: Procedure Date / Time 11/11/24 0709 Procedural Time Out Time out performed: Yes Central Line Placement Left IJ: Indication(s): shock and poor, or inadequate peripheral venous access Informed consent obtained: procedure done urgently Time out done, and the following verified: correct patient, side and site, procedure, patient position and implants and/or equipment Patient placed on monitor/pulse ox: Yes Hand Hygiene: scrub, soap & water and alcohol-based hand rub Max Sterile Barrier Techniques used: cap, mask, sterile gown, sterile gloves and sterile full body drape Central line prep: Povidone-Iodine 1%, Chlorhexidine scrub and sterile drapes applied Local anesthesia used: lidocaine 1% Amount of anesthesia used (mL): 2 Ultrasound used for placement: Yes Sterile Technique if Ultrasound used, including sterile gel: yes Central line lumen inserted: triple Post procedure: sutured in place, good blood return, all ports aspirated, flushed, capped and sterile dressing applied Post procedure x-ray: tip of catheter in good position and no pneumothorax seen Patient tolerated procedure: well and no complications EBL(ml): 5 Complications: none
[2024-11-11] MEDS: ALBUTEROL/IPRATROPIUM (Duoneb) RT SOL 3 ML NEBU INH ×5 (07:25→22:30)
[2024-11-11 07:44] LABS: Base Excess -1 (-3-3); HCO3 24 mEq/L (20-26); Inspired Oxygen, FIO2 40 %; O2 Saturation 99 % (91-98); PCO2 42 mmHg (32.0-48.0); PO2 97 mmHg (83-108); pH, Arterial 7.37 (7.35-7.45)
[2024-11-11 07:45] LABS: Allen Test Performed/OK; Puncture Site Right Radial
[2024-11-11] MEDS: PROPOFOL 1,000 MG IVPB 1,000 MG/100 ML VIAL 10.362 MG IV (07:50)
[2024-11-11 08:07] LABS: Lactic Acid, 3 HR 1.4 mMol/L (0.4-2.0)
--- NOTE | 2024-11-11 08:48 | ESCONSULT_ITS ---
<Statement entered by Jessenia Escudero MD - 11/13/24 18:44> I personally evaluated the patient examined in the emergency department with resident physician all essential component of the consultation report is reviewed by me personally reviewed the findings of previous hospitalization as well as [facility] ICD previous hospitalization patient has a complex medical problem multiple stent placement COPD multiple hospitalization September [address] elevation in inferior leads transferred to [facility] where she had a peak troponin of [address] any [address] elevation [place] coronary angiogram not performed patient refused to have that at that time but she came back 1 more time with severe shortness of breath pulmonary edema pulmonary problems 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 Patient most likely has ischemic component anterolateral ischemia causing acute exacerbation of heart failure recommend coronary angiogram once the patient is stable. At this time she is intubated mechanical ventilation once she is extubated we will discuss about angiogram. If she has significant findings of unable to extubate the patient has severe heart failure may require coronary angiogram but at this time we will manage conservatively with dialysis since the patient is a dialysis patient for removal of the fluid and volume overload. Spent more than 60 minutes of [facility] care time with the patient evaluation management HPI Data of Consult Requesting Physician: Gilma Rojas MD Admitting Provider: Gilma Rojas MD Attending Provider: Gilma Rojas MD Primary Care Provider: Physician No Primary/Family Consult Narrative History of present illness: The patient is a 74-year-old female with a history of CHF, CAD with multiple MIs and stents, COPD on 3 L home oxygen, ESRD on hemodialysis, and atrial fibrillation with pacemaker, who presented on 11/11/24 via EMS with acute shortness of breath. At home, she was hypoxic with oxygen saturation in the 80s and received DUONEB during transport. In the ED, she was saturating at 84% on high-flow CPAP, hypertensive to 200/76 mmHg, and altered. ABG demonstrated acute hypercapnic and hypoxic respiratory failure (pH 7.14, pCO? 71, pO? 116). CXR showed right lower lobe pneumonia. Labs revealed leukocytosis, elevated BNP (2005), elevated D-dimer, mild troponin rise (0.046), and creatinine consistent with ESRD. She was intubated, given METHYLPREDNISOLONE, fluids, CEFIXIME, and VANCOMYCIN, and admitted to the ICU. In the ICU on 11/11, the patient was sedated with PROPOFOL and FENTANYL, ventilated in VC/AC mode, and started on METHYLPREDNISOLONE 60 mg IV daily, CEFTRIAXONE, and AZITHROMYCIN for COPD exacerbation with suspected bacterial pneumonia. A central line was placed. She developed mild hypotension in the evening, for which NOREPINEPHRINE and MIDODRINE were initiated. The working diagnoses included acute hypoxic and hypercapnic respiratory failure secondary to COPD exacerbation and probable bacterial pneumonia, ESRD on HD, CHF with EF 45%, CAD with prior stents and old [place], type II NSTEMI, atrial fibrillation on AMIODARONE and APIXABAN, leukocytosis, anemia of chronic disease, and hypocalcemia. She is being managed with mechanical ventilation, sedation, vasopressor support as needed, hemodialysis, empiric antibiotics, corticosteroids, and bronchodilators. Plans included daily labs, repeat ABG, continuation of antibiotics and steroids, and ventilator weaning as tolerated. cc:: cc: Gilma Rojas MD Exam Vital Signs Temp Pulse Resp BP Pulse Ox O2 Del Method O2 Flow Rate 97.5 F 70 22 H 102/43 L 99 Mechanical Ventilation 80 11/12/24 04:00 11/12/24 08:45 11/12/24 07:54 11/12/24 08:45 11/12/24 07:54 11/11/24 20:00 11/11/24 04:35 FiO2 30 11/12/24 07:54 Narrative Exam General: Sedated and Mechanically ventilated. HEENT: Normocephalic, atraumatic, mucous membranes moist. Heart: Regular rate and rhythm, no murmurs. Lungs: Clear to auscultation with no wheezing or crackles. Abdomen: Soft, nondistended, nontender, positive bowel sounds. ?No guarding or rebound tenderness. Neurologic: Sedated and mechanically ventilated. Extremities: No edema. Left AV fistula noted Skin: No rash or ecchymoses. Results Labs 11/12/24 04:32 11/12/24 08:21 Labs: Short CBC 11/12/24 Range/Units 04:32 WBC 16.5 H (3.6-11.0) Thou/mm3 Hgb 10.0 L (12.0-16.0) g/dL Hct 31.0 L (36.0-46.0) % Plt Count 165 (140-440) Thou/mm3 BMP 11/12/24 04:32 Sodium 131 L Potassium 6.8 H* D Chloride 94 L Carbon Dioxide 19.2 L BUN 61 H Creatinine 7.9 H* D Glucose 117 H D Calcium 8.4 Cardiac Enzymes 11/11/24 11/11/24 Range/Units 11:08 14:27 Troponin I 0.089 H* 0.587 H* D (0.0-0.045) ng/mL Liver Function 11/12/24 Range/Units 04:32 Total Bilirubin 0.2 L (0.3-1.2) mg/dL AST 17 (0-34) U/L ALT < 7 L (10-49) U/L Alkaline Phosphatase 100 D (46-116) U/L Albumin 3.6 D (3.4-4.8) gm/dL ABG Interpretation ABG results: 11/11/24 11/11/24 11/12/24 04:01 07:38 04:55 ABG pH 7.14 L* 7.37 D 7.26 L D ABG pCO2 71 H* 42 D 44 ABG pO2 116 H 97 95 ABG HCO3 24 24 20 ABG O2 Saturation 97 99 H 98 ABG Base Excess -6 L -1 -7 L Quality Measures Quality Measures none Advance care planning discussed with:: other Medications Home Medications and Allergies Home Medications ?Medication ?Instructions ?Recorded ?Confirmed ?Type metoprolol tartrate 50 mg tablet 25 mg PO BID 09/20/19 10/02/23 History amiodarone 200 mg tablet 200 mg PO BID 08/20/2310/01 History apixaban 5 mg tablet (Eliquis) 5 mg PO BID 08/20/23 History atorvastatin 20 mg tablet 20 mg PO QDAY 08/20/2310/01 History calcium acetate(phosphat bind) 667 667 mg PO TID 08/1910/02/23 History mg capsule sacubitril 24 mg-valsartan 26 mg 1 tab PO BID 08/20/23 10/02/23 History tablet (Entresto) albuterol sulfate 90 mcg/actuation 1 puff inhalation B IDPRN PRN 10/02/23 10/02/23 History aerosol inhaler shortness of breath or wheez ing Allergies Allergy/AdvReac Type Severity Reaction Status Date / Time No Known Allergies Allergy Verified 09/22/24 15:46 Visit Medications Acetaminophen (Acetaminophen 325 Mg Tablet) 650 mg PO Q6H PRN PRN Reason: Fever >100.5 Stop: 12/11/24 05:16 Albuterol/Ipratropium (Albuterol/Ipratropium (Duoneb) Rt Poonam 3 Ml Nebu) 3 ml INH Q4HRRT RAYO Stop: 12/11/24 06:59 Last Admin: 11/12/24 06:52 Dose: 3 ml Amiodarone HCl (Amiodarone Hcl 200 Mg Tablet) 200 mg NG BID [facility] Stop: 12/11/24 08:59 Last Admin: 11/11/24 21:41 Dose: 200 mg Apixaban (Apixaban 2.5 Mg Tablet) 5 mg NG BID [facility] Stop: 12/11/24 08:59 Last Admin: 11/11/24 21:41 Dose: 5 mg Aspirin (Aspirin 81 Mg Chew) 81 mg NG QDAY [facility] Stop: 12/11/24 08:59 Last Admin: 11/11/24 10:13 Dose: 81 mg Atorvastatin Calcium (Atorvastatin Calcium 20 Mg Tablet) 40 mg NG HS [facility] Stop: 12/11/24 20:59 Last Admin: 11/11/24 21:40 Dose: 40 mg Calcium Carbonate (Calcium Carbonate 600 Mg Tablet) 600 mg NG BID [facility] Stop: 12/11/24 08:59 Last Admin: 11/11/24 21:41 Dose: 600 mg Dextrose (Dextrose 50%-Water Inj 50 Ml Syringe) 25 ml IV Q15MIN PRN PRN Reason: BG 50-70 responsive npo pt Stop: 12/12/24 06:23 Dextrose (Dextrose 50%-Water Inj 50 Ml Syringe) 50 ml IV Q15MIN PRN PRN Reason: BG <50 OR BG <70 & pt unresponsive Stop: 12/12/24 06:23 Famotidine (Famotidine Inj 10 Mg/Ml Vial 2 Ml) 20 mg IVP QDAY [facility]; Protocol Stop: 12/11/24 08:59 Last Admin: 11/12/24 08:46 Dose: 20 mg Glucagon (Glucagon Inj 1 Mg Vial) 1 mg IM Q15MIN PRN PRN Reason: BG <70, and no IV access Hydralazine HCl (Hydralazine Inj 20 Mg/Ml Vial) 10 mg IVP Q6H PRN PRN Reason: SBP>180 Stop: 12/11/24 05:29 Fentanyl Citrate (Sublimaze Inj 2,500 Mcg/250 Ml Bag) 2,500 mcg in 250 mls @ 2.5 mls/hr IV .Q24H PRN; Protocol PRN Reason: PER PROTOCOL Stop: 11/16/24 04:06 Last Titration: 11/12/24 08:00 Dose: 125 mcg/hr, 12.5 mls/hr Propofol (Diprivan Ivpb) 1,000 mg in 100 mls @ 2.072 mls/hr IV .Q24H PRN; Protocol PRN Reason: Per Protocol Stop: 12/11/24 03:37 Last Admin: 11/12/24 08:23 Dose: 35 mcg/kg/min, 14.507 mls/hr Ceftriaxone Sodium/Dextrose (Rocephin/D5w 1gm Iv Premix) 1 gm in 50 mls @ 100 mls/hr IV QDAY [facility] Stop: 11/18/24 11:26 Last Infusion: 11/11/24 12:52 Dose: Infused Doxycycline Hyclate 100 mg/ (Sodium Chloride) 100 mls @ 100 mls/hr IV BID [facility] Stop: 11/18/24 11:29 Last Admin: 11/11/24 21:42 Dose: 100 mls/hr Norepinephrine/Dextrose (Levophed In D5w 8mg/250ml) 8 mg in 250 mls @ 6.476 mls/hr IV .Q24H PRN; Protocol PRN Reason: PER PROTOCOL Stop: 12/11/24 16:04 Last Titration: 11/12/24 08:44 Dose: 0.09 mcg/kg/min, 11.658 mls/hr Methylprednisolone Sodium Succinate (Methylprednisolone Sod Succ 40 Mg Vial) 60 mg IV QDAY [facility] Stop: 11/18/24 08:59 Last Admin: 11/11/24 10:15 Dose: 60 mg Midodrine (Midodrine 5 Mg Tablet) 10 mg NG TID RAYO Stop: 12/11/24 21:59 Last Admin: 11/12/24 05:16 Dose: 10 mg Ondansetron HCl (Ondansetron Inj 2 Mg/Ml Inj 2 Ml) 4 mg IVP Q6H PRN; Protocol PRN Reason: NAUSEA OR VOMITING Stop: 12/11/24 05:16 Pharmacy Consult (Pharmacy Renal Dose Adjustment 1 Ea) 1 each XX PRN PRN PRN Reason: CONSULT Stop: 12/11/24 05:26 Sevelamer Carbonate (Sevelamer Carbonate 800 Mg Tablet) 800 mg NG TIDWM RAYO Stop: 12/12/24 07:59 Last Admin: 11/12/24 08:35 Dose: Not Given Sodium Chloride (Sodium Chloride Rt Poonam 0.9% 3 Ml Nebu) 3 ml INH PRN PRN PRN Reason: SOLN Stop: 12/11/24 04:42 Discontinued Medications Apixaban (Apixaban 2.5 Mg Tablet) 5 mg NG BID RAYO Stop: 12/11/24 08:59 Calcium Gluconate (Calcium Gluconate 10% Inj 1 Gm/10 Ml Vial) 1 gm IV X1 ONE Stop: 11/12/24 06:28 Last Admin: 11/12/24 06:37 Dose: 1 gm Dextrose (Dextrose 50%-Water Inj 50 Ml Syringe) 50 ml IVP X1 ONE Stop: 11/12/24 06:25 Last Admin: 11/12/24 06:36 Dose: 50 ml Epoetin Dipesh (Epoetin Dipesh-Epbx Inj 10,000 Unit/Ml Vial (Non-Esrd)) 10,000 unit SC X1 ONE Stop: 11/11/24 13:01 Last Admin: 11/11/24 18:40 Dose: 10,000 unit Etomidate (Etomidate Inj 2 Mg/Ml Vial 10 Ml) 20 mg IVP X1 ONE Stop: 11/11/24 03:36 Last Admin: 11/11/24 03:37 Dose: 20 mg Heparin Sodium (Porcine) (Heparin Sod Inj 5000 Unit/Ml Vial) 5,000 unit SC Q12HR RAYO Stop: 11/25/24 08:59 Propofol (Diprivan Ivpb) 1,000 mg in 100 mls @ 2.072 mls/hr IV .Q24H PRN; Protocol PRN Reason: Per Protocol Stop: 12/11/24 03:37 Last Titration: 11/11/24 04:13 Dose: 20 mcg/kg/min, 8.29 mls/hr Sodium Chloride (Ns) 1,000 mls @ 999 mls/hr IV .Q1H1M ONE Stop: 11/11/24 04:39 Last Infusion: 11/11/24 05:01 Dose: Infused Fentanyl Citrate (Sublimaze Inj 2,500 Mcg/250 Ml Bag) 2,500 mcg in 250 mls @ 2.5 mls/hr IV .Q24H PRN; Protocol PRN Reason: PER PROTOCOL Stop: 11/16/24 04:06 Cefepime HCl 2 gm/ Sodium (Chloride) 50 mls @ 100 mls/hr IV X1 ONE Stop: 11/11/24 05:01 Last Infusion: 11/11/24 07:25 Dose: Infused Vancomycin HCl 2,000 mg/ (Sodium Chloride) 500 mls @ 150 mls/hr IV X1 ONE Stop: 11/11/24 07:51 Last Admin: 11/11/24 07:59 Dose: Not Given Cefepime HCl 1 gm/ Sodium (Chloride) 50 mls @ 100 mls/hr IV QDAY RAYO Stop: 11/19/24 08:59 Vancomycin HCl (Vancomycin/Water 1250 Mg Ivpb) 250 mls @ 120 mls/hr IV X1 ONE Stop: 11/11/24 09:34 Last Infusion: 11/11/24 11:37 Dose: Infused Calcium Gluconate/Sodium Chloride (Calcium Gluc/Ns 1000mg Ivpb) 1,000 mg in 50 mls @ 50 mls/hr IV X1 ONE Stop: 11/11/24 07:34 Last Infusion: 11/11/24 10:26 Dose: Infused Insulin Human Regular (Insulin Hum Regular 1 Unit/0.01 Ml (Per Unit)) 5 unit IV X1 ONE Stop: 11/12/24 06:25 Last Admin: 11/12/24 06:37 Dose: 5 unit Ipratropium [place] (Ipratropium Rt 0.5 Mg/ 2.5 Ml Nebu) 0.5 mg INH X1 ONE Stop: 11/11/24 04:44 Last Admin: 11/11/24 04:51 Dose: 0.5 mg Levalbuterol HCl (Levalbuterol Rt 1.25 Mg/0.5 Ml Nebu) 2.5 mg INH X1 ONE Stop: 11/11/24 03:40 Last Admin: 11/11/24 04:17 Dose: 2.5 mg Levalbuterol HCl (Levalbuterol Rt 1.25 Mg/0.5 Ml Nebu) 2.5 mg INH X1 ONE Stop: 11/11/24 04:44 Methylprednisolone Sodium Succinate (Methylprednisolone Sod Succ 62.5 Mg/Ml 2ml Vial) 125 mg IVP X1 ONE Stop: 11/11/24 03:40 Last Admin: 11/11/24 03:59 Dose: 125 mg Methylprednisolone Sodium Succinate (Methylprednisolone Sod Succ 40 Mg Vial) 40 mg IVP BID RAYO Stop: 11/18/24 08:59 Midodrine (Midodrine 5 Mg Tablet) 10 mg PO X1 ONE Stop: 11/11/24 19:26 Midodrine (Midodrine 5 Mg Tablet) 10 mg PO TID RAYO Stop: 12/11/24 21:59 Ondansetron HCl (Ondansetron Inj 2 Mg/Ml Inj 2 Ml) 4 mg IVP X1 ONE; Protocol Stop: 11/11/24 03:40 Last Admin: 11/11/24 04:00 Dose: 4 mg Pharmacy Consult (Vancomycin Pharmacy To Dose 1 Each Each) 1 each IV QDAY PRN PRN Reason: PROTOCOL Stop: 12/11/24 08:59 Sevelamer Carbonate (Sevelamer Carbonate 0.8 Gm Packet (Non-Formulary)) 0.8 gm NG TID RAYO Stop: 12/11/24 13:59 Last Admin: 11/11/24 18:29 Dose: 0.8 gm Sodium Chloride (Sodium Chloride Rt Poonam 0.9% 3 Ml Nebu) 6 ml INH PRN PRN PRN Reason: SOLN Stop: 12/11/24 03:38 Sodium Chloride (Sodium Chloride Rt 10% 15 Ml Nebu) 5 ml INH X1 ONE Stop: 11/11/24 03:47 Sodium Chloride (Sodium Chloride Rt 10% 15 Ml Nebu) 5 ml INH X1 ONE Stop: 11/12/24 08:26 Sodium Polystyrene Sulfonate (Sod Polystyrene Sulfon Susp 15 Gm/60 Ml Btl) 30 gm PO X1 ONE Stop: 11/12/24 06:25 Sodium Polystyrene Sulfonate (Sod Polystyrene Sulfon Susp 15 Gm/60 Ml Btl) 30 gm NG X1 ONE Stop: 11/12/24 06:25 Last Admin: 11/12/24 06:47 Dose: 30 gm Succinylcholine Chloride (Succinylcholine Inj 20 Mg/Ml Vial 10 Ml) 100 mg IV X1 ONE Stop: 11/11/24 03:36 Last Admin: 11/11/24 03:39 Dose: 100 mg Assessment & Plan Plan The patient is a 74-year-old female with a history of CHF, CAD with multiple MIs and stents, COPD on 3 L home oxygen, ESRD on hemodialysis, and atrial fibrillation with pacemaker, who presented on 11/11/24 via EMS with acute shortness of breath. At home, she was hypoxic with oxygen saturation in the 80s and received DUONEB during transport. In the ED, she was saturating at 84% on high-flow CPAP, hypertensive to 200/76 mmHg, and altered. ABG demonstrated acute hypercapnic and hypoxic respiratory failure (pH 7.14, pCO? 71, pO? 116). CXR showed right lower lobe pneumonia. Labs revealed leukocytosis, elevated BNP (2005), elevated D-dimer, mild troponin rise (0.046), and creatinine consistent with ESRD. She was intubated, given METHYLPREDNISOLONE, fluids, CEFIXIME, and VANCOMYCIN, and admitted to the ICU. Acute hypoxic/hypercapnic respiratory failure in settings of COPD exacerbation versus suspected pneumonia CAD s/p multiple stents HFrEF, EF 45%, s/p pacemaker Hx paroxysmal atrial fibrillation, rate controlled NSTEMI type II ESRD on hemodialysis Hyperkalemia Chronic normocytic anemia, likely 2/2 CKD She has a known respiratory failure on home 3 L oxygen likely from COPD and CHF. Echo in 2003 showing EF 45%, mild hypokinesis of basal septal/inferior wall as well as mild diastolic dysfunction, in addition to mild to severe mitral annular calcification, moderate MR, trace AI/PI, mild TR. Additionally, EKG from 2023 showed atrial fibrillation, currently in sinus rhythm, likely paroxysmal. She is presenting with shortness of breath, desatting in 80s at home. Additionally, ABGs showed severe acidosis with pH 7.14, PCO2 71. Moreover, she had hypertensive emergency with BP 200/76. CXR showed significant bibasilar pneumonia. Her symptoms were consistent with COPD exacerbation with likely pneumonia. No signs of volume overload on exam. She had NSTEMI type II with Troponin peaked at 0.089, likely demand ischemia in settings of hypoxemia and hypertensive emergency. However, acute coronary syndrome cannot be ruled out. Given extensive cardiac history and risk factors, we may consider angiogram/cath once she is hemodynamically stable. ? Continue pressure support to maintain MAP >65 ? Continue AMIODARONE BID, ASPIRIN daily, ATORVASTATIN, MIDODRINE ? Continue hemodialysis with nephrology team ? Maintain K > 4.0 and Mg > 2.0 ? Strict JOHN's, low-salt diet, fluid restriction ? Continue DuoNebs and ANTIBIOTICS for pneumonia ? Will follow with echocardiogram Case was discussed with attending physician, Dr. Escudero. Richard Gan, DO PGY II This document was transcribed using voice recognition technology. Minor inaccuracies may be present.
[2024-11-11] MEDS: CALCIUM GLUC/NS 1000MG IVPB 1,000 MG/50 ML BAG 50 MG IV (09:26)
[2024-11-11] MEDS: VANCOMYCIN/WATER 1250 MG IVPB 250 ML 120 MG IV (09:32)
[2024-11-11] MEDS: ASPIRIN 81 MG CHEW NG (10:13)
[2024-11-11] MEDS: FAMOTIDINE INJ 10 MG/ML VIAL 2 ML 20 MG IVP (10:14)
[2024-11-11] MEDS: AMIODARONE HCL 200 MG TABLET NG ×2 (10:14→21:41)
[2024-11-11] MEDS: APIXABAN 2.5 MG TABLET 5 MG NG ×2 (10:14→21:41)
[2024-11-11] MEDS: CALCIUM CARBONATE 600 MG TABLET NG ×2 (10:16→21:41)
--- NOTE | 2024-11-11 10:41 | PD.RESPRO ---
Documentation for date of: 11/11/24 Exam Vital Signs Temp Pulse Resp BP Pulse Ox O2 Del Method O2 Flow Rate 98.6 F 70 22 H 121/53 L 100 Mechanical Ventilation 80 11/11/24 04:35 11/11/24 10:33 11/11/24 10:33 11/11/24 10:33 11/11/24 10:33 11/11/24 10:33 11/11/24 04:35 FiO2 30 11/11/24 10:18 Objective Labs 11/11/24 04:00 11/11/24 04:00 Labs: Laboratory Results - last 24 hr 11/11/24 11/11/24 11/11/24 04:00 04:01 04:10 WBC 13.5 H RBC 3.88 L Hgb 11.1 L Hct 37.1 MCV 96 MCH 28.6 MCHC 29.9 L RDW Std Deviation 63.4 H Plt Count 177 Neut % (Auto) 42 Lymph % (Auto) 42 [place] % (Auto) 12 Eos % (Auto) 3 Baso % (Auto) 1 Neut # (Auto) 5.7 Lymph # (Auto) 5.6 H [place] # (Auto) 1.6 H Eos # (Auto) 0.4 Baso # (Auto) 0.1 Immature Gran # (Auto) 0.09 H Absolute Nucleated RBC 0.00 Immature Gran % 1 H Nucleated RBC % 0 Smear Path Review Sent to Pathologist ESR 18 PT 11.7 INR 1.1 APTT 28.3 D-Dimer 2630 H Puncture Site Right Radial ABG pH 7.14 L* ABG pCO2 71 H* ABG pO2 116 H ABG HCO3 24 ABG O2 Saturation 97 ABG Base Excess -6 L FiO2 21 Sodium 135 L Potassium 4.6 Chloride 99 Carbon Dioxide 20.1 Anion Gap 16 BUN 39 H Creatinine 6.4 H* Estim Creat Clear Calc 7.3 L eGFR 6 L* BUN/Creatinine Ratio 6 L Glucose 184 H Calculated Osmolality 284 Lactic Acid 4.1 H* Calcium 7.7 L Corrected Calcium 7.7 L Magnesium 2.2 Total Bilirubin 0.4 Direct Bilirubin 0.1 AST < 10 ALT < 7 L Alkaline Phosphatase 128 H Ammonia 17 Total Creatine Kinase 46 Troponin I 0.046 H* C-Reactive Prot, Quant < 0.5 B-Natriuretic Peptide 2006 H* Total Protein 6.3 Albumin 4.2 Globulin 2.1 L Albumin/Globulin Ratio 2.0 Triglycerides 75 Cholesterol 186 LDL Cholesterol, Calc 116 HDL Cholesterol 55 Cholesterol/HDL Ratio 3.4 L Lipase 68 H Beta-Hydroxybutyrate/Acetoacetate 0.1 Procalcitonin 0.28 TSH 6.61 H Free T4 0.84 L Ur Collection Type Clean Catch Urine Color [place] A Urine Clarity Turbid A Urine pH 8.0 H Ur Specific [place] 1.008 Urine Protein 2+ A Urine Glucose (UA) Negative Urine Ketones Negative Urine Blood 2+ A Urine Nitrite Negative Urine Bilirubin Negative Urine Urobilinogen (Auto) Negative Ur Leukocyte Esterase Positive Urine RBC 502 H Urine WBC 1255 H Ur Squamous Epith Cells 29 H Urine Bacteria None Ur Culture Indicated? Contaminated 11/11/24 11/11/24 07:38 07:50 WBC RBC Hgb Hct MCV MCH MCHC RDW Std Deviation Plt Count Neut % (Auto) Lymph % (Auto) [place] % (Auto) Eos % (Auto) Baso % (Auto) Neut # (Auto) Lymph # (Auto) [place] # (Auto) Eos # (Auto) Baso # (Auto) Immature Gran # (Auto) Absolute Nucleated RBC Immature Gran % Nucleated RBC % Smear Path Review ESR PT INR APTT D-Dimer Puncture Site Right Radial ABG pH 7.37 D ABG pCO2 42 D ABG pO2 97 ABG HCO3 24 ABG O2 Saturation 99 H ABG Base Excess -1 FiO2 40 Sodium Potassium Chloride Carbon Dioxide Anion Gap BUN Creatinine Estim Creat Clear Calc eGFR BUN/Creatinine Ratio Glucose Calculated Osmolality Lactic Acid 1.4 Calcium Corrected Calcium Magnesium Total Bilirubin Direct Bilirubin AST ALT Alkaline Phosphatase Ammonia Total Creatine Kinase Troponin I C-Reactive Prot, Quant B-Natriuretic Peptide Total Protein Albumin Globulin Albumin/Globulin Ratio Triglycerides Cholesterol LDL Cholesterol, Calc HDL Cholesterol Cholesterol/HDL Ratio Lipase Beta-Hydroxybutyrate/Acetoacetate Procalcitonin TSH Free T4 Ur Collection Type Urine Color Urine Clarity Urine pH Ur Specific [place] Urine Protein Urine Glucose (UA) Urine Ketones Urine Blood Urine Nitrite Urine Bilirubin Urine Urobilinogen (Auto) Ur Leukocyte Esterase Urine RBC Urine WBC Ur Squamous Epith Cells Urine Bacteria Ur Culture Indicated? ABG Interpretation ABG results: 11/11/24 11/11/24 04:01 07:38 ABG pH 7.14 L* 7.37 D ABG pCO2 71 H* 42 D ABG pO2 116 H 97 ABG HCO3 24 24 ABG O2 Saturation 97 99 H ABG Base Excess -6 L -1 Quality Measures Quality Measures none Assessment & Plan Assessment Current Active Medications: Generic Name Dose Route Start Last Admin Trade Name Freq PRN Reason Stop Dose Admin Acetaminophen 650 mg 11/11/24 05:17 Acetaminophen 325 Mg Tablet PO 12/11/24 05:16 Q6H PRN Fever >100.5 Albuterol/Ipratropium 3 ml 11/11/24 07:00 11/11/24 10:17 Albuterol/Ipratropium (Duoneb) Rt Poonam 3 Ml Nebu INH 12/11/24 06:59 3 ml Q4HRRT RAYO Administration Amiodarone HCl 200 mg 11/11/24 09:00 11/11/24 10:14 Amiodarone Hcl 200 Mg Tablet NG 12/11/24 08:59 200 mg BID RAYO Administration Apixaban 5 mg 11/11/24 09:00 11/11/24 10:14 Apixaban 2.5 Mg Tablet NG 12/11/24 08:59 5 mg BID RAYO Administration Aspirin 81 mg 11/11/24 09:00 11/11/24 10:13 Aspirin 81 Mg Chew NG 12/11/24 08:59 81 mg QDAY RAYO Administration Atorvastatin Calcium 40 mg 11/11/24 21:00 Atorvastatin Calcium 20 Mg Tablet NG 12/11/24 20:59 HS RAYO Calcium Carbonate 600 mg 11/11/24 09:00 11/11/24 10:16 Calcium Carbonate 600 Mg Tablet NG 12/11/24 08:59 600 mg BID RAYO Administration Epoetin Dipesh 10,000 unit 11/11/24 13:00 Epoetin Dipesh-Epbx Inj 10,000 Unit/Ml Vial (Non-Esrd) SC 11/11/24 13:01 X1 ONE Famotidine 20 mg 11/11/24 09:00 11/11/24 10:14 Famotidine Inj 10 Mg/Ml Vial 2 Ml IVP 12/11/24 08:59 20 mg QDAY RAYO Administration Protocol Hydralazine HCl 10 mg 11/11/24 05:30 Hydralazine Inj 20 Mg/Ml Vial IVP 12/11/24 05:29 Q6H PRN SBP>180 Fentanyl Citrate 2,500 mcg in 250 mls @ 2.5 mls/hr 11/11/24 04:27 11/11/24 04:25 Sublimaze Inj 2,500 Mcg/250 Ml Bag IV 11/16/24 04:06 125 mcg/hr .Q24H PRN 12.5 mls/hr PER PROTOCOL Titration Protocol 25 MCG/HR Propofol 1,000 mg in 100 mls @ 2.072 mls/hr 11/11/24 04:27 11/11/24 08:03 Diprivan Ivpb IV 12/11/24 03:37 20 mcg/kg/min .Q24H PRN 8.29 mls/hr Per Protocol Titration Protocol 5 MCG/KG/MIN Cefepime HCl 1 gm/ Sodium 50 mls @ 100 mls/hr 11/12/24 09:00 Chloride IV 11/19/24 08:59 QDAY RAYO Methylprednisolone Sodium Succinate 60 mg 11/11/24 09:00 11/11/24 10:15 Methylprednisolone Sod Succ 40 Mg Vial IV 11/18/24 08:59 60 mg QDAY RAYO Administration Ondansetron HCl 4 mg 11/11/24 05:17 Ondansetron Inj 2 Mg/Ml Inj 2 Ml IVP 12/11/24 05:16 Q6H PRN NAUSEA OR VOMITING Protocol Pharmacy Consult 1 each 11/11/24 09:00 Vancomycin Pharmacy To Dose 1 Each Each IV 12/11/24 08:59 QDAY PRN PROTOCOL Pharmacy Consult 1 each 11/11/24 05:27 Pharmacy Renal Dose Adjustment 1 Ea XX 12/11/24 05:26 PRN PRN CONSULT Sevelamer Carbonate 0.8 gm 11/11/24 14:00 Sevelamer Carbonate 0.8 Gm Packet (Non-Formulary) NG 12/11/24 13:59 TID RAYO Sodium Chloride 6 ml 11/11/24 03:39 Sodium Chloride Rt Poonam 0.9% 3 Ml Nebu INH 12/11/24 03:38 PRN PRN SOLN Sodium Chloride 3 ml 11/11/24 04:43 Sodium Chloride Rt [place] 0.9% 3 Ml Nebu INH 12/11/24 04:42 PRN PRN SOLN
--- NOTE | 2024-11-11 10:43 | PD.RESCONSUL ---
HPI Data of Consult Requesting Physician: Gilma Rojas MD Admitting Provider: Gilma Rojas MD Attending Provider: Gilma Rojas MD Primary Care Provider: Physician No Primary/Family Consult Narrative cc:: cc: Gilma Rojas MD Exam Vital Signs Temp Pulse Resp BP Pulse Ox O2 Del Method O2 Flow Rate 98.6 F 70 22 H 121/53 L 100 Mechanical Ventilation 80 11/11/24 04:35 11/11/24 10:33 11/11/24 10:33 11/11/24 10:33 11/11/24 10:33 11/11/24 10:33 11/11/24 04:35 FiO2 30 11/11/24 10:18 Results Labs 11/11/24 04:00 11/11/24 04:00 Labs: Short CBC 11/11/24 Range/Units 04:00 WBC 13.5 H (3.6-11.0) Thou/mm3 Hgb 11.1 L (12.0-16.0) g/dL Hct 37.1 (36.0-46.0) % Plt Count 177 (140-440) Thou/mm3 BMP 11/11/24 04:00 Sodium 135 L Potassium 4.6 Chloride 99 Carbon Dioxide 20.1 BUN 39 H Creatinine 6.4 H* Glucose 184 H Calcium 7.7 L Cardiac Enzymes 11/11/24 Range/Units 04:00 Total Creatine Kinase 46 (34-171) U/L Troponin I 0.046 H* (0.0-0.045) ng/mL Liver Function 11/11/24 Range/Units 04:00 Total Bilirubin 0.4 (0.3-1.2) mg/dL Direct Bilirubin 0.1 (0.0-0.3) mg/dL AST < 10 (0-34) U/L ALT < 7 L (10-49) U/L Alkaline Phosphatase 128 H (46-116) U/L Albumin 4.2 (3.4-4.8) gm/dL Urine 11/11/24 Range/Units 04:10 Urine Color [place] A (Lt Yel-Yel) Urine Clarity Turbid A (Clear/Hazy) Urine pH 8.0 H (5.0-7.0) Ur Specific [place] 1.008 (1.001-1.035) Urine Protein 2+ A (Neg - Trace) Urine Glucose (UA) Negative (Negative) ABG Interpretation ABG results: 11/11/24 11/11/24 04:01 07:38 ABG pH 7.14 L* 7.37 D ABG pCO2 71 H* 42 D ABG pO2 116 H 97 ABG HCO3 24 24 ABG O2 Saturation 97 99 H ABG Base Excess -6 L -1 Quality Measures Quality Measures none Medications Home Medications and Allergies Home Medications ?Medication ?Instructions ?Recorded ?Confirmed ?Type metoprolol tartrate 50 mg tablet 25 mg PO BID 09/20/19 10/02/23 History amiodarone 200 mg tablet 200 mg PO BID 08/20/23 10/02/23 History apixaban 5 mg tablet (Eliquis) 5 mg PO BID 08/20/23 10/02/23 History atorvastatin 20 mg tablet 20 mg PO QDAY 08/20/23 10/02/23 History calcium acetate(phosphat bind) 667 667 mg PO TID 08/20/23 10/02/23 History mg capsule sacubitril 24 mg-valsartan 26 mg 1 tab PO BID 08/20/23 10/02/23 History tablet (Entresto) albuterol sulfate 90 mcg/actuation 1 puff inhalation BIDPRN PRN 10/02/23 10/02/23 History aerosol inhaler shortness of breath or wheezing Allergies Allergy/AdvReac Type Severity Reaction Status Date / Time No Known Allergies Allergy Verified 09/22/24 15:46 Visit Medications Acetaminophen (Acetaminophen 325 Mg Tablet) 650 mg PO Q6H PRN PRN Reason: Fever >100.5 Stop: 12/11/24 05:16 Albuterol/Ipratropium (Albuterol/Ipratropium (Duoneb) Rt Poonam 3 Ml Nebu) 3 ml INH Q4HRRT [facility] Stop: 12/11/24 06:59 Last Admin: 11/11/24 10:17 Dose: 3 ml Amiodarone HCl (Amiodarone Hcl 200 Mg Tablet) 200 mg NG BID [facility] Stop: 12/11/24 08:59 Last Admin: 11/11/24 10:14 Dose: 200 mg Apixaban (Apixaban 2.5 Mg Tablet) 5 mg NG BID [facility] Stop: 12/11/24 08:59 Last Admin: 11/11/24 10:14 Dose: 5 mg Aspirin (Aspirin 81 Mg Chew) 81 mg NG QDAY [facility] Stop: 12/11/24 08:59 Last Admin: 11/11/24 10:13 Dose: 81 mg Atorvastatin Calcium (Atorvastatin Calcium 20 Mg Tablet) 40 mg NG HS [facility] Stop: 12/11/24 20:59 Calcium Carbonate (Calcium Carbonate 600 Mg Tablet) 600 mg NG BID [facility] Stop: 12/11/24 08:59 Last Admin: 11/11/24 10:16 Dose: 600 mg Epoetin Dipesh (Epoetin Dipesh-Epbx Inj 10,000 Unit/Ml Vial (Non-Esrd)) 10,000 unit SC X1 ONE Stop: 11/11/24 13:01 Famotidine (Famotidine Inj 10 Mg/Ml Vial 2 Ml) 20 mg IVP QDAY [facility]; Protocol Stop: 12/11/24 08:59 Last Admin: 11/11/24 10:14 Dose: 20 mg Hydralazine HCl (Hydralazine Inj 20 Mg/Ml Vial) 10 mg IVP Q6H PRN PRN Reason: SBP>180 Stop: 12/11/24 05:29 Fentanyl Citrate (Sublimaze Inj 2,500 Mcg/250 Ml Bag) 2,500 mcg in 250 mls @ 2.5 mls/hr IV .Q24H PRN; Protocol PRN Reason: PER PROTOCOL Stop: 11/16/24 04:06 Last Titration: 11/11/24 04:25 Dose: 125 mcg/hr, 12.5 mls/hr Propofol (Diprivan Ivpb) 1,000 mg in 100 mls @ 2.072 mls/hr IV .Q24H PRN; Protocol PRN Reason: Per Protocol Stop: 12/11/24 03:37 Last Titration: 11/11/24 08:03 Dose: 20 mcg/kg/min, 8.29 mls/hr Cefepime HCl 1 gm/ Sodium (Chloride) 50 mls @ 100 mls/hr IV QDAY [facility] Stop: 11/19/24 08:59 Methylprednisolone Sodium Succinate (Methylprednisolone Sod Succ 40 Mg Vial) 60 mg IV QDAY [facility] Stop: 11/18/24 08:59 Last Admin: 11/11/24 10:15 Dose: 60 mg Ondansetron HCl (Ondansetron Inj 2 Mg/Ml Inj 2 Ml) 4 mg IVP Q6H PRN; Protocol PRN Reason: NAUSEA OR VOMITING Stop: 12/11/24 05:16 Pharmacy Consult (Vancomycin Pharmacy To Dose 1 Each Each) 1 each IV QDAY PRN PRN Reason: PROTOCOL Stop: 12/11/24 08:59 Pharmacy Consult (Pharmacy Renal Dose Adjustment 1 Ea) 1 each XX PRN PRN PRN Reason: CONSULT Stop: 12/11/24 05:26 Sevelamer Carbonate (Sevelamer Carbonate 0.8 Gm Packet (Non-Formulary)) 0.8 gm NG TID [facility] Stop: 12/11/24 13:59 Sodium Chloride (Sodium Chloride Rt Poonam 0.9% 3 Ml Nebu) 6 ml INH PRN PRN PRN Reason: SOLN Stop: 12/11/24 03:38 Sodium Chloride (Sodium Chloride Rt Poonam 0.9% 3 Ml Nebu) 3 ml INH PRN PRN PRN Reason: SOLN Stop: 12/11/24 04:42 Discontinued Medications Apixaban (Apixaban 2.5 Mg Tablet) 5 mg NG BID [facility] Stop: 12/11/24 08:59 Etomidate (Etomidate Inj 2 Mg/Ml Vial 10 Ml) 20 mg IVP X1 ONE Stop: 11/11/24 03:36 Last Admin: 11/11/24 03:37 Dose: 20 mg Heparin Sodium (Porcine) (Heparin Sod Inj 5000 Unit/Ml Vial) 5,000 unit SC Q12HR [facility] Stop: 11/25/24 08:59 Propofol (Diprivan Ivpb) 1,000 mg in 100 mls @ 2.072 mls/hr IV .Q24H PRN; Protocol PRN Reason: Per Protocol Stop: 12/11/24 03:37 Last Titration: 11/11/24 04:13 Dose: 20 mcg/kg/min, 8.29 mls/hr Sodium Chloride (Ns) 1,000 mls @ 999 mls/hr IV .Q1H1M ONE Stop: 11/11/24 04:39 Last Infusion: 11/11/24 05:01 Dose: Infused Fentanyl Citrate (Sublimaze Inj 2,500 Mcg/250 Ml Bag) 2,500 mcg in 250 mls @ 2.5 mls/hr IV .Q24H PRN; Protocol PRN Reason: PER PROTOCOL Stop: 11/16/24 04:06 Cefepime HCl 2 gm/ Sodium (Chloride) 50 mls @ 100 mls/hr IV X1 ONE Stop: 11/11/24 05:01 Last Infusion: 11/11/24 07:25 Dose: Infused Vancomycin HCl 2,000 mg/ (Sodium Chloride) 500 mls @ 150 mls/hr IV X1 ONE Stop: 11/11/24 07:51 Last Admin: 11/11/24 07:59 Dose: Not Given Vancomycin HCl (Vancomycin/Water 1250 Mg Ivpb) 250 mls @ 120 mls/hr IV X1 ONE Stop: 11/11/24 09:34 Last Admin: 11/11/24 09:32 Dose: 120 mls/hr Calcium Gluconate/Sodium Chloride (Calcium Gluc/Ns 1000mg Ivpb) 1,000 mg in 50 mls @ 50 mls/hr IV X1 ONE Stop: 11/11/24 07:34 Last Infusion: 11/11/24 10:26 Dose: Infused Ipratropium [place] (Ipratropium Rt 0.5 Mg/ 2.5 Ml Nebu) 0.5 mg INH X1 ONE Stop: 11/11/24 04:44 Last Admin: 11/11/24 04:51 Dose: 0.5 mg Levalbuterol HCl (Levalbuterol Rt 1.25 Mg/0.5 Ml Nebu) 2.5 mg INH X1 ONE Stop: 11/11/24 03:40 Last Admin: 11/11/24 04:17 Dose: 2.5 mg Levalbuterol HCl (Levalbuterol Rt 1.25 Mg/0.5 Ml Nebu) 2.5 mg INH X1 ONE Stop: 11/11/24 04:44 Methylprednisolone Sodium Succinate (Methylprednisolone Sod Succ 62.5 Mg/Ml 2ml Vial) 125 mg IVP X1 ONE Stop: 11/11/24 03:40 Last Admin: 11/11/24 03:59 Dose: 125 mg Methylprednisolone Sodium Succinate (Methylprednisolone Sod Succ 40 Mg Vial) 40 mg IVP BID [facility] Stop: 11/18/24 08:59 Ondansetron HCl (Ondansetron Inj 2 Mg/Ml Inj 2 Ml) 4 mg IVP X1 ONE; Protocol Stop: 11/11/24 03:40 Last Admin: 11/11/24 04:00 Dose: 4 mg Sodium Chloride (Sodium Chloride Rt 10% 15 Ml Nebu) 5 ml INH X1 ONE Stop: 11/11/24 03:47 Succinylcholine Chloride (Succinylcholine Inj 20 Mg/Ml Vial 10 Ml) 100 mg IV X1 ONE Stop: 11/11/24 03:36 Last Admin: 11/11/24 03:39 Dose: 100 mg
--- NOTE | 2024-11-11 11:32 | PC.NURSE ---
Patient was taken to [facility] compa with RT present, patient tolerated CT well. Patient vital signs stable. Patient saturating 98% on mechanical vent. Patient friend came by to visit and stated that yesterday patient looked fine when he had gone to visit her. Per friend Jose patient does not have family that she communicates with nearby. Friend explained plan of care and need for admission to ICU. Friend understands. Plan of care ongoing
[2024-11-11 11:38] LABS: Troponin I 0.089 ng/mL (0.0-0.045)
[2024-11-11 12:11] LABS: Amphetamine/Methamp Scrn,U Negative (Negative); Barbiturate Screen,Urine Negative (Negative); Benzodiazepines Screen,Urine Negative (Negative); Benzoylecgonine Screen, Ur Negative (Negative); Fentanyl Screen,Urine Negative (Negative); Opiate Screen,Urine Negative (Negative); THC Screen,Urine Negative (Negative)
[2024-11-11] MEDS: cefTRIAXone/D5w 1gm IV premix 1 GM/50 ML BAG IV (12:21)
[2024-11-11] MEDS: PROPOFOL 1,000 MG IVPB 1,000 MG/100 ML VIAL 8.29 MG IV ×2 (12:29→23:07)
[2024-11-11 12:54] LABS: Respiratory Syncytial Virus Ag Negative (Negative)
[2024-11-11] MEDS: DOXYCYCLINE INJ 100 MG in SODIUM CHLORIDE 0.9% (POP) 100 ML IV ×2 (13:35→21:42)
--- NOTE | 2024-11-11 13:44 | PD.RESCONSUL ---
HPI Data of Consult Consult date: 11/11/24 Requesting Physician: Gilma Rojas MD Admitting Provider: Gilma Rojas MD Attending Provider: Gilma Rojas MD Primary Care Provider: Physician No Primary/Family Consult Narrative Reason for consult: ESRD, acute respiratory failure, need for dialysis History of present illness: Mirella Grewal is a 74-year-old F with a PMH of CHF, coronary artery disease with multiple MIs s/p stents, COPD on 3 L home oxygen, ESRD on hemodialysis, Thursday, Thursday, , Thursday, and A-fib with pacemaker, who was brought in by EMS with a chief complaint of acute SOB. Per Internal Medicine team note, the patient called EMS due to SOB, and was saturating around 80% at home. She was given DuoNebs on the way to hospital and, when she presented to the ED, was saturating at 84% on high-flow CPAP. At this point, she was already altered, and was intubated. Internal Medicine team could not obtain further history due to patient already being intubated during their evaluation. Patient could not be interviewed by this software writer due to being intubated at time of evaluation. Of note, patient has multiple prior hospitalizations for similar presentations of acute hypoxic respiratory failure including in November 2023 and September 2023. In the ED, vitals showed: BP 200/76 HR 79 RR 20 Temp 98.6 SpO2 84% on high flow CPAP ED Course: CBC showed high WBC 13.5, and low Hgb 11.1 (MCV 96, RDW 63.4). Coagulation panel showed critically elevated D-dimer 2630 but was otherwise within normal limits. ABG showed normal pH 7.37, normal pCO2 42, normal PO2 97, and normal HCO3 24. CMP showed high BUN 39, critically elevated creatinine 6.4, critically low EGFR 6, high lactic acid 4.1, high blood glucose 184, low corrected calcium 7.7, critically elevated troponin I 0.046, critically elevated BNP 2006, high TSH 6.61, and low free T4 0.84. UA showed turbid orange urine with a basic pH of 8.0. It also showed 2+ urine protein, 2+ urine blood, high urine RBC 502, high urine WBC 1255, high urine squamous epithelial cells 29, but no urine bacteria. UDS was negative. Rapid RSV was negative. Imaging: Chest x-ray showed moderate congestive heart failure with prominent vascular congestion and perihilar basilar edema. Head CT was unremarkable. Chest CT showed bilateral thyroid nodules, mild heart failure with moderate enlargement of the cardiac contour, bibasilar pneumonia, numerous bilateral positioned metastatic pulmonary nodules, small bilateral pleural effusions, and cholelithiasis. EKG showed old MD. In the ED, patient was received methylprednisone 125 Mg IV x 1, bolus fluid 1 L at the rate 250 cc/h, cefixime 2 g IV x 1, and was started on vancomycin. The patient was intubated and admitted to ICU for further management of acute hypoxic hypercapnic respiratory failure secondary to COPD exacerbation. We, the nephrology team, were consulted for the patient's combined respiratory and metabolic acidosis and need for urgent hemodialysis due to ESRD status. Cardiology is also following. cc:: cc: Gilma Rojas MD Review of Systems Review of Systems ROS Unobtainable: due to endotracheal tube Past Medical History Past Medical History Comments PMH COMMENT: PMH unobtainable due to endotracheal tube Per IM note: PMH: CHF, coronary artery disease with multiple MIs s/p stents, COPD on 3 L home oxygen, ESRD on hemodialysis, Thursday, Thursday, , Thursday, A-fib with pacemaker PSH: Hysterectomy, fistula placement on the left arm, pacemaker implantation social history Medications: to be reconciled Allergies: NKDA FH: none SH: No use of illicit drug use, alcohol use, quit smoking in 2020, smoked 1.5 daily for unknown number of years Exam Vital Signs Temp Pulse Resp BP Pulse Ox O2 Del Method O2 Flow Rate 98.6 F 70 20 111/54 L 100 Mechanical Ventilation 80 11/11/24 04:35 11/11/24 12:47 11/11/24 12:47 11/11/24 12:47 11/11/24 12:47 11/11/24 12:47 11/11/24 04:35 FiO2 30 11/11/24 10:18 Narrative Exam Physical Exam: General: No acute distress, sedated, intubated and mechanically ventilated HEENT: Moist mucous membranes, oropharynx clear Neck: Supple, No masses, No JVD CVS: S1S2 Regular rate and rhythm, No murmurs, rubs or gallops Lungs: Coarse rhonchi and expiratory wheeze throughout the lung field Abd: Soft, NT/ND, +BS, no organomegaly Ext: No edema, warm and well perfused, prominent fistula on left arm and forearm Skin: No rash Psych: Unobtainable Results Labs 11/12/24 04:32 11/12/24 08:21 Labs: Short CBC 11/11/24 Range/Units 04:00 WBC 13.5 H (3.6-11.0) Thou/mm3 Hgb 11.1 L (12.0-16.0) g/dL Hct 37.1 (36.0-46.0) % Plt Count 177 (140-440) Thou/mm3 BMP 11/11/24 04:00 Sodium 135 L Potassium 4.6 Chloride 99 Carbon Dioxide 20.1 BUN 39 H Creatinine 6.4 H* Glucose 184 H Calcium 7.7 L Cardiac Enzymes 11/11/24 11/11/24 Range/Units 04:00 11:08 Total Creatine Kinase 46 (34-171) U/L Troponin I 0.046 H* 0.089 H* (0.0-0.045) ng/mL Liver Function 11/11/24 Range/Units 04:00 Total Bilirubin 0.4 (0.3-1.2) mg/dL Direct Bilirubin 0.1 (0.0-0.3) mg/dL AST < 10 (0-34) U/L ALT < 7 L (10-49) U/L Alkaline Phosphatase 128 H (46-116) U/L Albumin 4.2 (3.4-4.8) gm/dL Urine 11/11/24 Range/Units 04:10 Urine Color [employer] A (Lt Yel-Yel) Urine Clarity Turbid A (Clear/Hazy) Urine pH 8.0 H (5.0-7.0) Ur Specific [place] 1.008 (1.001-1.035) Urine Protein 2+ A (Neg - Trace) Urine Glucose (UA) Negative (Negative) ABG Interpretation ABG results: 11/11/24 11/11/24 04:01 07:38 ABG pH 7.14 L* 7.37 D ABG pCO2 71 H* 42 D ABG pO2 116 H 97 ABG HCO3 24 24 ABG O2 Saturation 97 99 H ABG Base Excess -6 L -1 Quality Measures Quality Measures none Advance care planning discussed with:: patient Medications Home Medications and Allergies Home Medications ?Medication ?Instructions ?Recorded ?Confirmed ?Type metoprolol tartrate 50 mg tablet 25 mg PO BID 09/20/19 10/02/23 History amiodarone 200 mg tablet 200 mg PO BID 08/20/23 10/02/23 History apixaban 5 mg tablet (Eliquis) 5 mg PO BID 08/20/23 10/02/23 History atorvastatin 20 mg tablet 20 mg PO QDAY 08/20/23 10/02/23 History calcium acetate(phosphat bind) 667 667 mg PO TID 08/20/23 10/02/23 History mg capsule sacubitril 24 mg-valsartan 26 mg 1 tab PO BID 08/20/23 10/02/23 History tablet (Entresto) albuterol sulfate 90 mcg/actuation 1 puff inhalation BIDPRN PRN 10/02/23 10/02/23 History aerosol inhaler shortness of breath or wheezing Allergies Allergy/AdvReac Type Severity Reaction Status Date / Time No Known Allergies Allergy Verified 09/22/24 15:46 Visit Medications Acetaminophen (Acetaminophen 325 Mg Tablet) 650 mg PO Q6H PRN PRN Reason: Fever >100.5 Stop: 12/11/24 05:16 Albuterol/Ipratropium (Albuterol/Ipratropium (Duoneb) Rt Poonam 3 Ml Nebu) 3 ml INH Q4HRRT [facility] Stop: 12/11/24 06:59 Last Admin: 11/11/24 10:17 Dose: 3 ml Amiodarone HCl (Amiodarone Hcl 200 Mg Tablet) 200 mg NG BID [facility] Stop: 12/11/24 08:59 Last Admin: 11/11/24 10:14 Dose: 200 mg Apixaban (Apixaban 2.5 Mg Tablet) 5 mg NG BID [facility] Stop: 12/11/24 08:59 Last Admin: 11/11/24 10:14 Dose: 5 mg Aspirin (Aspirin 81 Mg Chew) 81 mg NG QDAY [facility] Stop: 12/11/24 08:59 Last Admin: 11/11/24 10:13 Dose: 81 mg Atorvastatin Calcium (Atorvastatin Calcium 20 Mg Tablet) 40 mg NG HS [facility] Stop: 12/11/24 20:59 Calcium Carbonate (Calcium Carbonate 600 Mg Tablet) 600 mg NG BID [facility] Stop: 12/11/24 08:59 Last Admin: 11/11/24 10:16 Dose: 600 mg Famotidine (Famotidine Inj 10 Mg/Ml Vial 2 Ml) 20 mg IVP QDAY [facility]; Protocol Stop: 12/11/24 08:59 Last Admin: 11/11/24 10:14 Dose: 20 mg Hydralazine HCl (Hydralazine Inj 20 Mg/Ml Vial) 10 mg IVP Q6H PRN PRN Reason: SBP>180 Stop: 12/11/24 05:29 Fentanyl Citrate (Sublimaze Inj 2,500 Mcg/250 Ml Bag) 2,500 mcg in 250 mls @ 2.5 mls/hr IV .Q24H PRN; Protocol PRN Reason: PER PROTOCOL Stop: 11/16/24 04:06 Last Titration: 11/11/24 04:25 Dose: 125 mcg/hr, 12.5 mls/hr Propofol (Diprivan Ivpb) 1,000 mg in 100 mls @ 2.072 mls/hr IV .Q24H PRN; Protocol PRN Reason: Per Protocol Stop: 12/11/24 03:37 Last Admin: 11/11/24 12:29 Dose: 20 mcg/kg/min, 8.29 mls/hr Ceftriaxone Sodium/Dextrose (Rocephin/D5w 1gm Iv Premix) 1 gm in 50 mls @ 100 mls/hr IV QDAY [facility] Stop: 11/18/24 11:26 Last Infusion: 11/11/24 12:52 Dose: Infused Doxycycline Hyclate 100 mg/ (Sodium Chloride) 100 mls @ 100 mls/hr IV BID [facility] Stop: 11/18/24 11:29 Last Admin: 11/11/24 13:35 Dose: 100 mls/hr Methylprednisolone Sodium Succinate (Methylprednisolone Sod Succ 40 Mg Vial) 60 mg IV QDAY [facility] Stop: 11/18/24 08:59 Last Admin: 11/11/24 10:15 Dose: 60 mg Ondansetron HCl (Ondansetron Inj 2 Mg/Ml Inj 2 Ml) 4 mg IVP Q6H PRN; Protocol PRN Reason: NAUSEA OR VOMITING Stop: 12/11/24 05:16 Pharmacy Consult (Pharmacy Renal Dose Adjustment 1 Ea) 1 each XX PRN PRN PRN Reason: CONSULT Stop: 12/11/24 05:26 Sevelamer Carbonate (Sevelamer Carbonate 0.8 Gm Packet (Non-Formulary)) 0.8 gm NG TID [facility] Stop: 12/11/24 13:59 Sodium Chloride (Sodium Chloride Rt Poonam 0.9% 3 Ml Nebu) 6 ml INH PRN PRN PRN Reason: SOLN Stop: 12/11/24 03:38 Sodium Chloride (Sodium Chloride Rt Poonam 0.9% 3 Ml Nebu) 3 ml INH PRN PRN PRN Reason: SOLN Stop: 12/11/24 04:42 Discontinued Medications Apixaban (Apixaban 2.5 Mg Tablet) 5 mg NG BID [facility] Stop: 12/11/24 08:59 Epoetin Dipesh (Epoetin Dipesh-Epbx Inj 10,000 Unit/Ml Vial (Non-Esrd)) 10,000 unit SC X1 ONE Stop: 11/11/24 13:01 Etomidate (Etomidate Inj 2 Mg/Ml Vial 10 Ml) 20 mg IVP X1 ONE Stop: 11/11/24 03:36 Last Admin: 11/11/24 03:37 Dose: 20 mg Heparin Sodium (Porcine) (Heparin Sod Inj 5000 Unit/Ml Vial) 5,000 unit SC Q12HR [facility] Stop: 11/25/24 08:59 Propofol (Diprivan Ivpb) 1,000 mg in 100 mls @ 2.072 mls/hr IV .Q24H PRN; Protocol PRN Reason: Per Protocol Stop: 12/11/24 03:37 Last Titration: 11/11/24 04:13 Dose: 20 mcg/kg/min, 8.29 mls/hr Sodium Chloride (Ns) 1,000 mls @ 999 mls/hr IV .Q1H1M ONE Stop: 11/11/24 04:39 Last Infusion: 11/11/24 05:01 Dose: Infused Fentanyl Citrate (Sublimaze Inj 2,500 Mcg/250 Ml Bag) 2,500 mcg in 250 mls @ 2.5 mls/hr IV .Q24H PRN; Protocol PRN Reason: PER PROTOCOL Stop: 11/16/24 04:06 Cefepime HCl 2 gm/ Sodium (Chloride) 50 mls @ 100 mls/hr IV X1 ONE Stop: 11/11/24 05:01 Last Infusion: 11/11/24 07:25 Dose: Infused Vancomycin HCl 2,000 mg/ (Sodium Chloride) 500 mls @ 150 mls/hr IV X1 ONE Stop: 11/11/24 07:51 Last Admin: 11/11/24 07:59 Dose: Not Given Cefepime HCl 1 gm/ Sodium (Chloride) 50 mls @ 100 mls/hr IV QDAY [facility] Stop: 11/19/24 08:59 Vancomycin HCl (Vancomycin/Water 1250 Mg Ivpb) 250 mls @ 120 mls/hr IV X1 ONE Stop: 11/11/24 09:34 Last Infusion: 11/11/24 11:37 Dose: Infused Calcium Gluconate/Sodium Chloride (Calcium Gluc/Ns 1000mg Ivpb) 1,000 mg in 50 mls @ 50 mls/hr IV X1 ONE Stop: 11/11/24 07:34 Last Infusion: 11/11/24 10:26 Dose: Infused Ipratropium [place] (Ipratropium Rt 0.5 Mg/ 2.5 Ml Nebu) 0.5 mg INH X1 ONE Stop: 11/11/24 04:44 Last Admin: 11/11/24 04:51 Dose: 0.5 mg Levalbuterol HCl (Levalbuterol Rt 1.25 Mg/0.5 Ml Nebu) 2.5 mg INH X1 ONE Stop: 11/11/24 03:40 Last Admin: 11/11/24 04:17 Dose: 2.5 mg Levalbuterol HCl (Levalbuterol Rt 1.25 Mg/0.5 Ml Nebu) 2.5 mg INH X1 ONE Stop: 11/11/24 04:44 Methylprednisolone Sodium Succinate (Methylprednisolone Sod Succ 62.5 Mg/Ml 2ml Vial) 125 mg IVP X1 ONE Stop: 11/11/24 03:40 Last Admin: 11/11/24 03:59 Dose: 125 mg Methylprednisolone Sodium Succinate (Methylprednisolone Sod Succ 40 Mg Vial) 40 mg IVP BID [facility] Stop: 11/18/24 08:59 Ondansetron HCl (Ondansetron Inj 2 Mg/Ml Inj 2 Ml) 4 mg IVP X1 ONE; Protocol Stop: 11/11/24 03:40 Last Admin: 11/11/24 04:00 Dose: 4 mg Pharmacy Consult (Vancomycin Pharmacy To Dose 1 Each Each) 1 each IV QDAY PRN PRN Reason: PROTOCOL Stop: 12/11/24 08:59 Sodium Chloride (Sodium Chloride Rt 10% 15 Ml Nebu) 5 ml INH X1 ONE Stop: 11/11/24 03:47 Succinylcholine Chloride (Succinylcholine Inj 20 Mg/Ml Vial 10 Ml) 100 mg IV X1 ONE Stop: 11/11/24 03:36 Last Admin: 11/11/24 03:39 Dose: 100 mg Assessment & Plan Plan Mirella Grewal is a 74-year-old F with a PMH of CHF, coronary artery disease with multiple MIs s/p stents, COPD on 3 L home oxygen, ESRD on hemodialysis, Thursday, Thursday, , Thursday, and A-fib with pacemaker, who was brought in by EMS with a chief complaint of acute SOB. The patient was intubated and admitted to ICU for further management of acute hypoxic hypercapnic respiratory failure secondary to COPD exacerbation. We, the nephrology team, were consulted for the patient's combined respiratory and metabolic acidosis and need for urgent hemodialysis due to ESRD status. #Combined respiratory and metabolic acidosis #ESRD on HD (Thursday, Thursday, , Thursday) Admission ABG showed pH 7.14 and pCO2 71, elevated lactic acid 4.1 Admission creatinine 6.4 (baseline: possibly 4.8-4.9), BUN 39, current eGFR 6 Patient has a left-sided fistula and receives her HD on / Diagnostic Inquiry -No current recommendation Treatment Plan -Urgent hemodialysis #Possible CHF exacerbation, likely 2/2 volume overload in the setting of ESRD #Pleural Effusion Critically elevated BNP 2005 with elevated troponin I 0.046 Chest x-ray showed moderate congestive heart failure with prominent vascular congestion and perihilar basilar edema Chest CT showed mild heart failure with moderate enlargement of the cardiac contour with small bilateral pleural effusions Diagnostic Inquiry -Cardiology has been consulted, advance per recommendations Treatment Plan -Urgent hemodialysis #Hypocalcemia, likely 2/2 ESRD status Admission calcium 7.7 s/p IV calcium gluconate 1000 mg Diagnostic Inquiry -No current recommendation Treatment Plan -Continue NG calcium carbonate BID per primary care team -Monitor electrolyte levels, correct as needed #Normocytic anemia, likely 2/2 ESRD status Admission Hgb 11.1 (MCV 96, RDW 63.4) Diagnostic Inquiry -Pursue outpatient workup per primary care team Treatment Plan -SubQ Epoetin 10,000 U x1 -Monitor H&H, transfuse if Hgb<7 #Other medical problems #Acute encephalopathy likely 2/2 CO2 narcolepsy in the setting of COPD exacerbation #Acute hypoxic hypercapnic respiratory failure likely 2/2 CHF exacerbation vs. COPD exacerbation vs. both #COPD exacerbation #Community-acquired pneumonia #Leukocytosis #CAD s/p stents #Hx of A-fib, on Eliquis and s/p pacemaker Diagnostic Inquiry -Continue management per primary care team Treatment Plan -Continue management per primary care team Hospital Management: Disposition: Patient admitted to ICU for further management of acute hypoxic hypercapnic respiratory failure secondary to COPD exacerbation, requires urgent HD Diet: NPO Lines: Left IJ central line, peripheral lines DVT Prophylaxis: Eliquis 5 mg BID CODE STATUS: Full Code Thank you for allowing us to be part of the patient's care. I have examined the patient and conferred with the nephrology attending, Dr. Mishra, regarding them. Tim Pineda, DO PGY-1 Internal Medicine Attending Provider Attestation/Addendum Patient seen and examined with resident physician Dr. Pineda. Note reviewed, agree with findings and recommendations. Patient admitted with acute respiratory failure from fluid overload and pneumonia. Currently on ventilator. Will be going to ICU. Intubated and sedated renal consultation requested for need for dialysis. Patient did receive dialysis yesterday and 1.9 L of fluid was removed in the outpatient setting. Patient on dialysis. Tolerating dialysis without any problems. Hemodialysis for 3 hours, 2K, ultrafiltration 2-3 L, Epogen 6000, no heparin ordered. Plan of care discussed with the dialysis nurse. Please see dialysis flowsheet for further details. Thank you Dr. Phoenix for allowing me to participate in the care of Ms. Grewal
--- NOTE | 2024-11-11 15:28 | PC.NURSE ---
Informed Resident Lisha patient had rectal temperature of 94.2 Patient's blood pressure 133/59, Patient still on propofol and fentanyl drip. Patient placed on Bairhugger blanket warmer, no further others. Patient still waiting for ICU bed. All other vital signs stable.
--- NOTE | 2024-11-11 16:15 | PC.NURSE ---
PATIENT BLOOS PRESSURE STARTED DROPPING, PROPOFOL WAS TITRATED DOWN, CALLED RESIDENT JOHNNIE. INFORMED OF PATIENT'S TEMPERATURE, LOW BP AND NEED FOR PORPOFOL DECREASE. WHEN DECREASED PATIENT BECAME MORE AWAKE BUT CALM. PER RESIDENT PATIENT TO BE STARTED ON LEVOPHED DRIP IF BP CONTINUES TO BE BELOW MAP OF 65.
--- NOTE | 2024-11-11 16:21 | ESPR_ITS ---
<Statement entered by Omega Phoenix MD - 11/12/24 13:14> TOTAL CC TIME: 45 MIN I saw and evaluated the patient. I reviewed the resident?s note and agree with findings and plan as documented in the resident?s note. Upon my evaluation, this patient had a high probability of imminent or life- threatening deterioration due to hypoxic hypercapnic respiratory failure which required my direct attention, intervention, and personal management. This time is exclusive of time spent on procedures, which are documented separately if performed. Improving ventilation and oxygenation Continue current antibiotics repeat sputum endotracheal tube cultures ordered due to initial contaminant with 10-25 epithelial cells Undergoing hemodialysis today Wean sedation after hemodialysis placed on pressure support ventilation if able to tolerate Documentation for date of: 11/11/24 Subjective Subjective Interval history: The patient is a 74-year-old female with significant past medical history of CHF, coronary artery disease with multiple MIs s/p stents, COPD on 3 L home oxygen, ESRD on hemodialysis, Thursday, Thursday, , Thursday, A-fib with pacemaker, brought in by EMS with chief complaint of acute SOB. The patient called EMS due to SOB, and she was saturating on 80s at her home. She was given DuoNeb on the way to hospital, and when she presented to ED, her saturation was 84 on high flow CPAP. She was already altered, and was intubated. Further history were unobtainable, as patient was already intubated during my evaluation. In the ED her vitals were significant for a blood pressure of 200/76, pulse 79, RR 20, labs are significant for white count 13.5, RBC 3.88, hemoglobin 11.1, D- dimer 2630, ABG revealed pH of 7.14, pCO2 71, pO2 116, bicarb 24, sodium 135, potassium 4.6, BUN 39, creatinine 6.4, lactic acid 4.1, corrected calcium 7.7, magnesium 2.2, AST/ALT/ALP less than 10, less than 10/05/2027 respectively. Ammonia was 17, troponin 0.046, CRP less than 0.5, BNP 2005, lipid panel revealed LDL 116, lipase 68, TSH 6.61, free T4 0.84. UA revealed orange urine, 2+ protein, 2+ blood, leukocyte Estrace positive, RBC 502, WBC 1255, chest x-ray revealed right lower lobe pneumonia, EKG revealed old [place]. The patient received methylprednisone 125 Mg IV x 1, bolus fluid 1 L at the rate 250 cc/h, cefixime 2 g IV x 1, and started on vancomycin. The patient was intubated and admitted to ICU for further management of acute hypoxic hypercapnic respiratory failure secondary to COPD exacerbation. 11/11/2024: Patient is sedated and on mechanical ventilator. Most of the history is taken from the chart review and from the nurse at the bedside. Patient supposedly lives alone and developed shortness of breath, for which she called the EMS. By the time EMS went her home she was severely short of breath for which she was given DuoNebs and was kept on CPAP following which she was brought to the hospital where she was given steroids, sedated and intubated. Later central line was placed. No acute overnight events. Vitals are stable and patient is on propofol and fentanyl drip without any vasopressor support. Started on methylprednisolone 60 Mg IV once daily, ceftriaxone and azithromycin. Repeat ABG after the intubation is within normal limits. Will continue mechanical ventilation for now and monitor the patient. Later in the evening, patient is found to be mildly hypotensive for which low-dose Levophed was started and patient was given a dose of midodrine 10 Mg through orogastric tube. Exam Vital Signs Temp Pulse Resp BP Pulse Ox O2 Del Method O2 Flow Rate 94.2 F L 69 22 H 106/48 L 100 Mechanical Ventilation 80 11/11/24 15:12 11/11/24 15:14 11/11/24 15:14 11/11/24 15:12 11/11/24 15:14 11/11/24 15:12 11/11/24 04:35 FiO2 30 11/11/24 15:14 Narrative Exam General: Sedated and Mechanically ventilated. HEENT: Normocephalic, atraumatic, mucous membranes moist. Heart: Regular rate and rhythm, no murmurs. Lungs: Clear to auscultation with no wheezing or crackles. Abdomen: Soft, nondistended, nontender, positive bowel sounds. ?No guarding or rebound tenderness. Neurologic: Sedated and mechanically ventilated. Extremities: No edema. Left AV fistula noted Skin: No rash or ecchymoses. Objective Labs 11/11/24 04:00 11/11/24 04:00 Labs: Laboratory Results - last 24 hr 11/11/24 11/11/24 11/11/24 04:00 04:01 04:10 WBC 13.5 H RBC 3.88 L Hgb 11.1 L Hct 37.1 MCV 96 MCH 28.6 MCHC 29.9 L RDW Std Deviation 63.4 H Plt Count 177 Neut % (Auto) 42 Lymph % (Auto) 42 [place] % (Auto) 12 Eos % (Auto) 3 Baso % (Auto) 1 Neut # (Auto) 5.7 Lymph # (Auto) 5.6 H [place] # (Auto) 1.6 H Eos # (Auto) 0.4 Baso # (Auto) 0.1 Immature Gran # (Auto) 0.09 H Absolute Nucleated RBC 0.00 Immature Gran % 1 H Nucleated RBC % 0 Smear Path Review Sent to Pathologist ESR 18 PT 11.7 INR 1.1 APTT 28.3 D-Dimer 2630 H Puncture Site Right Radial ABG pH 7.14 L* ABG pCO2 71 H* ABG pO2 116 H ABG HCO3 24 ABG O2 Saturation 97 ABG Base Excess -6 L FiO2 21 Sodium 135 L Potassium 4.6 Chloride 99 Carbon Dioxide 20.1 Anion Gap 16 BUN 39 H Creatinine 6.4 H* Estim Creat Clear Calc 7.3 L eGFR 6 L* BUN/Creatinine Ratio 6 L Glucose 184 H Calculated Osmolality 284 Lactic Acid 4.1 H* Calcium 7.7 L Corrected Calcium 7.7 L Magnesium 2.2 Total Bilirubin 0.4 Direct Bilirubin 0.1 AST < 10 ALT < 7 L Alkaline Phosphatase 128 H Ammonia 17 Total Creatine Kinase 46 Troponin I 0.046 H* C-Reactive Prot, Quant < 0.5 B-Natriuretic Peptide 2006 H* Total Protein 6.3 Albumin 4.2 Globulin 2.1 L Albumin/Globulin Ratio 2.0 Triglycerides 75 Cholesterol 186 LDL Cholesterol, Calc 116 HDL Cholesterol 55 Cholesterol/HDL Ratio 3.4 L Lipase 68 H Beta-Hydroxybutyrate/Acetoacetate 0.1 Procalcitonin 0.28 TSH 6.61 H Free T4 0.84 L Ur Collection Type Clean Catch Urine Color [place] A Urine Clarity Turbid A Urine pH 8.0 H Ur Specific [place] 1.008 Urine Protein 2+ A Urine Glucose (UA) Negative Urine Ketones Negative Urine Blood 2+ A Urine Nitrite Negative Urine Bilirubin Negative Urine Urobilinogen (Auto) Negative Ur Leukocyte Esterase Positive Urine RBC 502 H Urine WBC 1255 H Ur Squamous Epith Cells 29 H Urine Bacteria None Ur Culture Indicated? Contaminated Urine Opiates Screen Negative Urine Fentanyl Screen Negative Ur Barbiturates Screen Negative U Amphetamin/Meth Scrn Negative U Benzodiazepines Scrn Negative U Cocaine Metab Screen Negative U Marijuana (THC) Screen Negative RSV Rapid 11/11/24 11/11/24 11/11/24 07:38 07:50 11:08 WBC RBC Hgb Hct MCV MCH MCHC RDW Std Deviation Plt Count Neut % (Auto) Lymph % (Auto) [place] % (Auto) Eos % (Auto) Baso % (Auto) Neut # (Auto) Lymph # (Auto) [place] # (Auto) Eos # (Auto) Baso # (Auto) Immature Gran # (Auto) Absolute Nucleated RBC Immature Gran % Nucleated RBC % Smear Path Review ESR PT INR APTT D-Dimer Puncture Site Right Radial ABG pH 7.37 D ABG pCO2 42 D ABG pO2 97 ABG HCO3 24 ABG O2 Saturation 99 H ABG Base Excess -1 FiO2 40 Sodium Potassium Chloride Carbon Dioxide Anion Gap BUN Creatinine Estim Creat Clear Calc eGFR BUN/Creatinine Ratio Glucose Calculated Osmolality Lactic Acid 1.4 Calcium Corrected Calcium Magnesium Total Bilirubin Direct Bilirubin AST ALT Alkaline Phosphatase Ammonia Total Creatine Kinase Troponin I 0.089 H* C-Reactive Prot, Quant B-Natriuretic Peptide Total Protein Albumin Globulin Albumin/Globulin Ratio Triglycerides Cholesterol LDL Cholesterol, Calc HDL Cholesterol Cholesterol/HDL Ratio Lipase Beta-Hydroxybutyrate/Acetoacetate Procalcitonin TSH Free T4 Ur Collection Type Urine Color Urine Clarity Urine pH Ur Specific [place] Urine Protein Urine Glucose (UA) Urine Ketones Urine Blood Urine Nitrite Urine Bilirubin Urine Urobilinogen (Auto) Ur Leukocyte Esterase Urine RBC Urine WBC Ur Squamous Epith Cells Urine Bacteria Ur Culture Indicated? Urine Opiates Screen Urine Fentanyl Screen Ur Barbiturates Screen U Amphetamin/Meth Scrn U Benzodiazepines Scrn U Cocaine Metab Screen U Marijuana (THC) Screen RSV Rapid 11/11/24 11:55 WBC RBC Hgb Hct MCV MCH MCHC RDW Std Deviation Plt Count Neut % (Auto) Lymph % (Auto) [place] % (Auto) Eos % (Auto) Baso % (Auto) Neut # (Auto) Lymph # (Auto) [place] # (Auto) Eos # (Auto) Baso # (Auto) Immature Gran # (Auto) Absolute Nucleated RBC Immature Gran % Nucleated RBC % Smear Path Review ESR PT INR APTT D-Dimer Puncture Site ABG pH ABG pCO2 ABG pO2 ABG HCO3 ABG O2 Saturation ABG Base Excess FiO2 Sodium Potassium Chloride Carbon Dioxide Anion Gap BUN Creatinine Estim Creat Clear Calc eGFR BUN/Creatinine Ratio Glucose Calculated Osmolality Lactic Acid Calcium Corrected Calcium Magnesium Total Bilirubin Direct Bilirubin AST ALT Alkaline Phosphatase Ammonia Total Creatine Kinase Troponin I C-Reactive Prot, Quant B-Natriuretic Peptide Total Protein Albumin Globulin Albumin/Globulin Ratio Triglycerides Cholesterol LDL Cholesterol, Calc HDL Cholesterol Cholesterol/HDL Ratio Lipase Beta-Hydroxybutyrate/Acetoacetate Procalcitonin TSH Free T4 Ur Collection Type Urine Color Urine Clarity Urine pH Ur Specific [place] Urine Protein Urine Glucose (UA) Urine Ketones Urine Blood Urine Nitrite Urine Bilirubin Urine Urobilinogen (Auto) Ur Leukocyte Esterase Urine RBC Urine WBC Ur Squamous Epith Cells Urine Bacteria Ur Culture Indicated? Urine Opiates Screen Urine Fentanyl Screen Ur Barbiturates Screen U Amphetamin/Meth Scrn U Benzodiazepines Scrn U Cocaine Metab Screen U Marijuana (THC) Screen RSV Rapid Negative ABG Interpretation ABG results: 11/11/24 11/11/24 04:01 07:38 ABG pH 7.14 L* 7.37 D ABG pCO2 71 H* 42 D ABG pO2 116 H 97 ABG HCO3 24 24 ABG O2 Saturation 97 99 H ABG Base Excess -6 L -1 Quality Measures Quality Measures none Advance care planning discussed with:: other Assessment & Plan Assessment Current Active Medications: Generic Name Dose Route Start Last Admin Trade Name Freq PRN Reason Stop Dose Admin Acetaminophen 650 mg 11/11/24 05:17 Acetaminophen 325 Mg Tablet PO 12/11/24 05:16 Q6H PRN Fever >100.5 Albuterol/Ipratropium 3 ml 11/11/24 07:00 11/11/24 15:19 Albuterol/Ipratropium (Duoneb) Rt Poonam 3 Ml Nebu INH 12/11/24 06:59 3 ml Q4HRRT RAYO Administration Amiodarone HCl 200 mg 11/11/24 09:00 11/11/24 10:14 Amiodarone Hcl 200 Mg Tablet NG 12/11/24 08:59 200 mg BID RAYO Administration Apixaban 5 mg 11/11/24 09:00 11/11/24 10:14 Apixaban 2.5 Mg Tablet NG 12/11/24 08:59 5 mg BID RAYO Administration Aspirin 81 mg 11/11/24 09:00 11/11/24 10:13 Aspirin 81 Mg Chew NG 12/11/24 08:59 81 mg QDAY RAYO Administration Atorvastatin Calcium 40 mg 11/11/24 21:00 Atorvastatin Calcium 20 Mg Tablet NG 12/11/24 20:59 HS RAYO Calcium Carbonate 600 mg 11/11/24 09:00 11/11/24 10:16 Calcium Carbonate 600 Mg Tablet NG 12/11/24 08:59 600 mg BID RAYO Administration Famotidine 20 mg 11/11/24 09:00 11/11/24 10:14 Famotidine Inj 10 Mg/Ml Vial 2 Ml IVP 12/11/24 08:59 20 mg QDAY RAYO Administration Protocol Hydralazine HCl 10 mg 11/11/24 05:30 Hydralazine Inj 20 Mg/Ml Vial IVP 12/11/24 05:29 Q6H PRN SBP>180 Fentanyl Citrate 2,500 mcg in 250 mls @ 2.5 mls/hr 11/11/24 04:27 11/11/24 04:25 Sublimaze Inj 2,500 Mcg/250 Ml Bag IV 11/16/24 04:06 125 mcg/hr .Q24H PRN 12.5 mls/hr PER PROTOCOL Titration Protocol 25 MCG/HR Propofol 1,000 mg in 100 mls @ 2.072 mls/hr 11/11/24 04:27 11/11/24 12:29 Diprivan Ivpb IV 12/11/24 03:37 20 mcg/kg/min .Q24H PRN 8.29 mls/hr Per Protocol Administration Protocol 5 MCG/KG/MIN Ceftriaxone Sodium/Dextrose 1 gm in 50 mls @ 100 mls/hr 11/11/24 11:27 11/11/24 12:52 Rocephin/D5w 1gm Iv Premix IV 11/18/24 11:26 Infused QDAY RAYO Infusion Doxycycline Hyclate 100 mg/ 100 mls @ 100 mls/hr 11/11/24 11:30 11/11/24 14:35 Sodium Chloride IV 11/18/24 11:29 Infused BID RAYO Infusion Norepinephrine/Dextrose 8 mg in 250 mls @ 6.476 mls/hr 11/11/24 16:05 Levophed In D5w 8mg/250ml IV 12/11/24 16:04 .Q24H PRN PER PROTOCOL Protocol 0.05 MCG/KG/MIN Methylprednisolone Sodium Succinate 60 mg 11/11/24 09:00 11/11/24 10:15 Methylprednisolone Sod Succ 40 Mg Vial IV 11/18/24 08:59 60 mg QDAY RAYO Administration Ondansetron HCl 4 mg 11/11/24 05:17 Ondansetron Inj 2 Mg/Ml Inj 2 Ml IVP 12/11/24 05:16 Q6H PRN NAUSEA OR VOMITING Protocol Pharmacy Consult 1 each 11/11/24 05:27 Pharmacy Renal Dose Adjustment 1 Ea XX 12/11/24 05:26 PRN PRN CONSULT Sevelamer Carbonate 0.8 gm 11/11/24 14:00 Sevelamer Carbonate 0.8 Gm Packet (Non-Formulary) NG 12/11/24 13:59 TID RAYO Sodium Chloride 6 ml 11/11/24 03:39 Sodium Chloride Rt Poonam 0.9% 3 Ml Nebu INH 12/11/24 03:38 PRN PRN SOLN Sodium Chloride 3 ml 11/11/24 04:43 Sodium Chloride Rt [place]oonam 0.9% 3 Ml Nebu INH 12/11/24 04:42 PRN PRN SOLN Plan The patient is a 74-year-old female with significant past medical history of CHF, coronary artery disease with multiple MIs s/p stents, COPD on 3 L home oxygen, ESRD on hemodialysis, Thursday, Thursday, , Thursday, A-fib with pacemaker, brought in by EMS with chief complaint of acute SOB. The patient was intubated and admitted to ICU for further management of acute hypoxic hypercapnic respiratory failure secondary to COPD exacerbation. Neuro: #Acute encephalopathy Differential diagnosis: CO2 narcosis versus sedation metabolic versus hypertensive encephalopathy. - CO2 narcosis: Likely as patient had history of COPD [on 3 L of oxygen at home], brought to the hospital with chief complaints of shortness of breath and noted to have severe wheeze for which she was given DuoNebs by the EMS and was kept on CPAP during admit to the hospital. - Sedation: Patient is currently on propofol and fentanyl, which could be the cause of encephalopathy for now as patient ABG significantly improved. - Metabolic: Patient had history of ESRD on HD, unsure of last dialysis session but per her equipment operator/laborer, Dr. Mishra she is getting dialysis 4 times in a week -Hypertensive encephalopathy: Blood pressure at the time of admission is 200/76 mmHg, unlikely as patient is having hypoxia and hypercapnia at the time of presentation and noted to have wheeze at the time of presentation Diagnostic test: - ABG at the time of admission showed pH 7.14, pCO2 71, PaO2 116, bicarb 24, oxygen saturation 97. - Chest x-ray showed cardiomegaly, infiltrates more on the right basilar area. - Labs showed WBC 13.5 - Tested negative for influenza A and B, COVID-19 Plan - Started on methylprednisolone 60 Mg IV daily - Started on ceftriaxone and doxycycline [11/11-in view of suspected pneumonia in the setting of exacerbation - Patient is currently on mechanical ventilator, VC/AC mode tidal volume 380, respiratory rate 22, PEEP 5, FiO2 30% - Currently patient is on mechanical ventilator with sedation, will wean her off sedation and try to keep her on pressure support tomorrow after repeating the blood gas and chest x-ray and will try to extubate her if patient is hemodynamically stable CVS: # CAD s/p multiple stents # S/p pacemaker # HFrEF, EF 45% in 2023 - Though patient presented with acute SOB, was found to have BNP 1999, no JVD or peripheral edema noted - EKG showed paced rhythm with ST elevation in 1, aVL and reciprocal depressions in 2, 3 and aVF suggestive of old [place] Plan - Low-sodium diet - Fluid restriction to 1500 cc daily - Talked to teradata solution architect, Dr. Escudero about the EKG findings and he recommended that ST elevations are from old [place] and does not require any acute interventions as of now # History of atrial fibrillation, currently in normal sinus rhythm - Patient never had documented episodes of atrial fibrillation but on pacemaker tracing, noted to have atrial fibrillation for which patient was started on amiodarone and Eliquis - Resumed her home amiodarone 200 Mg twice daily and Eliquis 5 mg twice daily through the OG tube # NSTEMI, likely type II - Troponin is mildly elevated at the time of admission, 0.046 - Later troponins found to be downtrending - Though EKG showed changes of ST elevation, they are likely from the old [place] - Will continue telemetry monitoring Pulmonology: #Acute hypoxic hypercapnic respiratory failure 2/ #COPD exacerbation Likely in the setting of worsening disease or superimposed bacterial infection Diagnostic test: - Tested negative for influenza A, B and COVID-19 - ABG at the time of admission showed pH 7.14, pCO2 71, PaO2 116, bicarb 24, oxygen saturation 97. - Chest x-ray showed cardiomegaly, infiltrates more on the right basilar area. - Labs showed WBC 13.5 - Tested negative for influenza A and B, COVID-19 - Blood culture and ET secretions culture pending Treatment: - Patient is sedated, intubated and mechanically ventilated - Received methylprednisolone 125 Mg IV x 1 in the ED - Started on methylprednisolone 60 Mg IV daily - Nebulizations every fourth of every, DuoNebs - Will do repeat ABG as needed and try to wean her off the ventilator based on hemodynamic status and her ABG GI: - No active problems Renal: #Combined respiratory and metabolic acidosis #ESRD on HD pH of 7.14, pCO2 71, lactic acid 4.1 Plan -Car Mechanic Helper Dr. Mishra consulted, appreciate recommendations - Will need HD as per her routine schedule - Will avoid nephrotoxic medications and renally dose medications #Hypocalcemia Presented with calcium of 7.7 - Started on calcium carbonate 600 Mg twice daily via NG tube Hematology: #Leukocytosis Reactive versus steroid versus infective Secondary to pneumonia and COPD exacerbation - Continue to treat underlying cause #Normocytic anemia DDx: Inflammatory anemia due to chronic kidney disease, versus nutritional deficiency versus malabsorption - Workup as an outpatient basis ID: # Suspected community-acquired pneumonia - Antibiotic therapy treatment as above -Pending blood culture and ET secretion culture Health maintenance: Dispo: Patient admitted to ICU for further management of acute hypoxic hypercapnic respiratory failure secondary to COPD exacerbation Diet: Started on tube feeds through OG tube Lines: Left IJ central line, peripheral lines DVT prophylaxis: Eliquis 5 Mg twice daily CODE STATUS: Full code Patient plan of care was discussed with the tile mechanic, Dr. Alban Husain, PGY2
[2024-11-11] MEDS: Norepinephrine/D5W 8mg/250ml 8 MG/250 ML BAG 6.476 MG IV (16:55)
--- NOTE | 2024-11-11 17:07 | PC.NURSE ---
MADE RESIDENT JOHNNIE AWARE THAT PATIENT UNABLE TO START TUBE FEEDINGS DOWN HERE DUE TO NO PUMP AVAILABILITY IN ED. PER RESIDENT OKAY TO HOLD OFF ON TUBE FEEDINGS FOR NOW. CHECKED PATIENT'S BLOOD SUGAR BLOOD SUGAR WAS 116. LEVOPHED DRIP WAS STARTED AT 1655. RECHECKED BLOOD PRESSURE, BLOOD PRESSURE 133/51. PATIENT STILL WAITING FOR ICU ADMIT BED. PLAN OF CARE ONGOING.
[2024-11-11 17:14] LABS: Troponin I 0.587 ng/mL (0.0-0.045)
[2024-11-11] MEDS: SEVELAMER CARBONATE 0.8 GM PACKET (NON-FORMULARY) NG (18:29)
[2024-11-11] MEDS: EPOETIN ALFA-EPBX INJ 10,000 UNIT/ML VIAL (NON-ESRD) 10000 UNIT SC (18:40)
[2024-11-11] MEDS: ATORVASTATIN CALCIUM 20 MG TABLET 40 MG NG (21:40)
--- NOTE | 2024-11-11 22:15 | PC.NURSE ---
attempted to personal financial counselor to notify for admission process x3, left VM and callback
[2024-11-11] MEDS: MIDODRINE 5 MG TABLET 10 MG NG (22:53)
[2024-11-12] VITALS (146 sets, daily range): BP systolic 85–211; BP diastolic 35–88; PULSE 69–121; RESP 4–23; TEMP 36.4–37.4; O2SAT 94–100; BMI 23.3; BMI 23.2
[2024-11-12] MEDS: ALBUTEROL/IPRATROPIUM (Duoneb) RT SOL 3 ML NEBU INH ×6 (02:15→22:03)
[2024-11-12] MEDS: fentaNYL 2,500 MCG/250 ML BAG 2,500 MCG/250 ML BAG 7.5 MCG IV (02:26)
--- NOTE | 2024-11-12 05:00 | XR_ITS ---
Examination: AP chest single view Technique one AP portable semiupright chest single view Date and time: November 12, 2024, 0611 hours Comparison November 11, 2024 INDICATIONS: Hypoxic respiratory failure, postintubation this week FINDINGS: Moderate enlargement cardiac contour with cardiac calcifications Prominent vascular congestion Significant bibasilar lung opacity consistent with pneumonia. Left internal jugular central line tip SVC. Cardiac leads stable position. Endotracheal tube tip 5.6 cm above bam Prominent osteopenia IMPRESSION: Mild heart failure Significant bibasilar pneumonia
[2024-11-12 05:04] LABS: Base Excess -7 (-3-3); HCO3 20 mEq/L (20-26); Inspired Oxygen, FIO2 21 %; O2 Saturation 98 % (91-98); PCO2 44 mmHg (32.0-48.0); PO2 95 mmHg (83-108); pH, Arterial 7.26 (7.35-7.45)
[2024-11-12 05:05] LABS: Allen Test Performed/OK; Puncture Site Right Brachial
[2024-11-12] MEDS: MIDODRINE 5 MG TABLET 10 MG NG ×3 (05:16→21:35)
[2024-11-12 05:34] LABS: Basophils # (Auto) 0.0 Thou/mm3 (0.0-0.2); Basophils % (Auto) 0 % (0-2.5); Eosinophils # (Auto) 0.0 Thou/mm3 (0.0-0.5); Eosinophils % (Auto) 0 % (0-10); Hematocrit 31.0 % (36.0-46.0); Hemoglobin 10.0 g/dL (12.0-16.0); Immature Granulocytes Auto 0.11 Thou/mm3 (0.00-0.00); Lymphocytes # (Auto) 0.8 Thou/mm3 (1.0-4.8); Lymphocytes % (Auto) 5 % (10-50); Mean Corpuscular HGB Conc 32.3 g/dl (31.0-37.0); Mean Corpuscular Hemoglobin 29.5 pg (25.0-35.0); Mean Corpuscular Volume 91 fL (80-100); Monocytes # (Auto) 1.6 Thou/mm3 (0.0-0.8); Monocytes % (Auto) 9 % (0-12); Neutrophils # (Auto) 14.0 Thou/mm3 (1.8-7.7); Neutrophils % (Auto) 85 % (37-80); Nucleated Red Blood Cell # 0.00 Thou/mm3 (0.00-0.00); Nucleated Red Blood Cell % 0 /100 WBC (0); Platelet Count 165 Thou/mm3 (140-440); RDW Standard Deviation 60.6 fL (36.4-46.3); Red Blood Count 3.39 Miln/mm3 (4.00-5.20); White Blood Count 16.5 Thou/mm3 (3.6-11.0)
[2024-11-12 06:16] LABS: Alanine Aminotransferase < 7 U/L (10-49); Albumin, Serum 3.6 gm/dL (3.4-4.8); Albumin/Globulin Ratio 1.9 (1.2-2.2); Alkaline Phosphatase 100 U/L (46-116); Anion Gap 18 (7-16); Aspartate Amino Transferase 17 U/L (0-34); BUN/Creatinine Ratio 8 Ratio (12-20); Bilirubin,Total 0.2 mg/dL (0.3-1.2); Blood Urea Nitrogen 61 mg/dL (9-23); Calcium 8.4 mg/dL (8.3-10.6); Calcium (Corrected) 8.7 mg/dL (8.5-10.1); Carbon Dioxide 19.2 mMol/L (20.0-31.0); Chloride 94 mMol/L (98-107); Creatinine (Component) 7.9 mg/dL (0.6-1.3); Estimated Creatinine Clearance 5.9 mL/min (>60); Globulin 1.9 gm/dL (2.3-3.5); Glucose 117 mg/dL (74-106); Magnesium 2.2 mg/dL (1.6-2.6); Osmolality,Calculated 280 (275-295); Phosphorous 7.8 mg/dL (2.4-5.1); Sodium 131 mMol/L (136-145); Total Protein 5.5 gm/dL (5.7-8.2); Vancomycin,Random 18.8 mcg/mL; eGFR 5 See Note
[2024-11-12 06:23] LABS: Potassium 6.8 mMol/L (3.4-5.1)
[2024-11-12] MEDS: DEXTROSE 50%-WATER INJ 50 ML SYRINGE IVP (06:36)
[2024-11-12] MEDS: INSULIN HUM REGULAR 1 UNIT/0.01 ML (PER UNIT) 5 UNIT IV (06:37)
[2024-11-12] MEDS: CALCIUM GLUCONATE 10% INJ 1 GM/10 ML VIAL IV (06:37)
[2024-11-12] MEDS: SOD POLYSTYRENE SULFON SUSP 15 GM/60 ML BTL 30 GM NG (06:47)
[2024-11-12] MEDS: PROPOFOL 1,000 MG IVPB 1,000 MG/100 ML VIAL 14.507 MG IV (08:23)
[2024-11-12] MEDS: FAMOTIDINE INJ 10 MG/ML VIAL 2 ML 20 MG IVP (08:46)
--- NOTE | 2024-11-12 08:49 | ESPR_ITS ---
<Statement entered by Jessenia Escudero MD - 11/13/24 18:44> I personally evaluated the patient examined in the emergency department with resident physician all essential component of the consultation report is reviewed by me personally reviewed the findings of previous hospitalization as well as [facility] [place] ICD previous hospitalization patient has a complex medical problem multiple stent placement COPD multiple hospitalization September [address] elevation in inferior leads transferred to [facility] where she had a peak troponin of [address] any [address] elevation [place] coronary angiogram not performed patient refused to have that at that time but she came back 1 more time with severe shortness of breath pulmonary edema pulmonary problems 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 Patient most likely has ischemic component anterolateral ischemia causing acute exacerbation of heart failure recommend coronary angiogram once the patient is stable. At this time she is intubated mechanical ventilation once she is extubated we will discuss about angiogram. If she has significant findings of unable to extubate the patient has severe heart failure may require coronary angiogram but at this time we will manage conservatively with dialysis since the patient is a dialysis patient for removal of the fluid and volume overload. Spent more than 60 minutes of critica care time with the patient evaluation management Documentation for date of: 11/12/24 Subjective Subjective Interval history: The patient is a 74-year-old female with a history of CHF, CAD with multiple MIs and stents, COPD on 3 L home oxygen, ESRD on hemodialysis, and atrial fibrillation with pacemaker, who presented on 11/11/24 via EMS with acute shortness of breath. At home, she was hypoxic with oxygen saturation in the 80s and received DUONEB during transport. In the ED, she was saturating at 84% on high-flow CPAP, hypertensive to 200/76 mmHg, and altered. ABG demonstrated acute hypercapnic and hypoxic respiratory failure (pH 7.14, pCO? 71, pO? 116). CXR showed right lower lobe pneumonia. Labs revealed leukocytosis, elevated BNP (2005), elevated D-dimer, mild troponin rise (0.046), and creatinine consistent with ESRD. She was intubated, given METHYLPREDNISOLONE, fluids, CEFIXIME, and VANCOMYCIN, and admitted to the ICU. In the ICU on 11/11, the patient was sedated with PROPOFOL and FENTANYL, ventilated in VC/AC mode, and started on METHYLPREDNISOLONE 60 mg IV daily, CEFTRIAXONE, and AZITHROMYCIN for COPD exacerbation with suspected bacterial pneumonia. A central line was placed. She developed mild hypotension in the evening, for which NOREPINEPHRINE and MIDODRINE were initiated. The working diagnoses included acute hypoxic and hypercapnic respiratory failure secondary to COPD exacerbation and probable bacterial pneumonia, ESRD on HD, CHF with EF 45%, CAD with prior stents and old [place], type II NSTEMI, atrial fibrillation on AMIODARONE and APIXABAN, leukocytosis, anemia of chronic disease, and hypocalcemia. She is being managed with mechanical ventilation, sedation, vasopressor support as needed, hemodialysis, empiric antibiotics, corticosteroids, and bronchodilators. Plans included daily labs, repeat ABG, continuation of antibiotics and steroids, and ventilator weaning as tolerated. On 11/12, she remained sedated and mechanically ventilated, transitioned later in the day from VC/AC to pressure support mode, with FiO? 30% and PEEP 5, saturating around 95%. She was mildly hypotensive, with NOREPINEPHRINE weaned off in the morning but briefly restarted during hemodialysis. She had missed dialysis the prior day and underwent HD with removal of 2 L of fluid. Labs showed persistent leukocytosis, hyperkalemia (K? 6.8 pre-dialysis), metabolic acidosis (HCO?? 19.2), BUN 61, creatinine 7.9, and troponin peak of 0.587, felt to represent type II NSTEMI. EKG showed paced rhythm with ST changes consistent with old [place]. Exam Vital Signs Temp Pulse Resp BP Pulse Ox O2 Del Method O2 Flow Rate 97.5 F 70 22 H 102/43 L 99 Mechanical Ventilation 80 11/12/24 04:00 11/12/24 08:45 11/12/24 07:54 11/12/24 08:45 11/12/24 07:54 11/11/24 20:00 11/11/24 04:35 FiO2 30 11/12/24 07:54 Narrative Exam General: Sedated and Mechanically ventilated. HEENT: Normocephalic, atraumatic, mucous membranes moist. Heart: Regular rate and rhythm, no murmurs. Lungs: Clear to auscultation with no wheezing or crackles. Abdomen: Soft, nondistended, nontender, positive bowel sounds. ?No guarding or rebound tenderness. Neurologic: Sedated and mechanically ventilated. Extremities: No edema. Left AV fistula noted Skin: No rash or ecchymoses. Objective Labs 11/12/24 04:32 11/12/24 08:21 Labs: Laboratory Results - last 24 hr 11/11/24 11/11/24 11/11/24 04:10 11:08 11:55 WBC RBC Hgb Hct MCV MCH MCHC RDW Std Deviation Plt Count Neut % (Auto) Lymph % (Auto) [place] % (Auto) Eos % (Auto) Baso % (Auto) Neut # (Auto) Lymph # (Auto) [place] # (Auto) Eos # (Auto) Baso # (Auto) Immature Gran # (Auto) Absolute Nucleated RBC Immature Gran % Nucleated RBC % Puncture Site ABG pH ABG pCO2 ABG pO2 ABG HCO3 ABG O2 Saturation ABG Base Excess FiO2 Sodium Potassium Chloride Carbon Dioxide Anion Gap BUN Creatinine Estim Creat Clear Calc eGFR BUN/Creatinine Ratio Glucose Calculated Osmolality Calcium Corrected Calcium Phosphorus Magnesium Total Bilirubin AST ALT Alkaline Phosphatase Troponin I 0.089 H* Total Protein Albumin Globulin Albumin/Globulin Ratio Random Vancomycin Urine Opiates Screen Negative Urine Fentanyl Screen Negative Ur Barbiturates Screen Negative U Amphetamin/Meth Scrn Negative U Benzodiazepines Scrn Negative U Cocaine Metab Screen Negative U Marijuana (THC) Screen Negative RSV Rapid Negative 11/11/24 11/12/24 11/12/24 14:27 04:32 04:55 WBC 16.5 H RBC 3.39 L Hgb 10.0 L Hct 31.0 L MCV 91 MCH 29.5 MCHC 32.3 RDW Std Deviation 60.6 H Plt Count 165 Neut % (Auto) 85 H Lymph % (Auto) 5 L [place] % (Auto) 9 Eos % (Auto) 0 Baso % (Auto) 0 Neut # (Auto) 14.0 H Lymph # (Auto) 0.8 L [place] # (Auto) 1.6 H Eos # (Auto) 0.0 Baso # (Auto) 0.0 Immature Gran # (Auto) 0.11 H Absolute Nucleated RBC 0.00 Immature Gran % 1 H Nucleated RBC % 0 Puncture Site Right Brachial ABG pH 7.26 L D ABG pCO2 44 ABG pO2 95 ABG HCO3 20 ABG O2 Saturation 98 ABG Base Excess -7 L FiO2 21 Sodium 131 L Potassium 6.8 H* D Chloride 94 L Carbon Dioxide 19.2 L Anion Gap 18 H BUN 61 H Creatinine 7.9 H* D Estim Creat Clear Calc 5.9 L eGFR 5 L* BUN/Creatinine Ratio 8 L Glucose 117 H D Calculated Osmolality 280 Calcium 8.4 Corrected Calcium 8.7 Phosphorus 7.8 H Magnesium 2.2 Total Bilirubin 0.2 L AST 17 ALT < 7 L Alkaline Phosphatase 100 D Troponin I 0.587 H* D Total Protein 5.5 L Albumin 3.6 D Globulin 1.9 L Albumin/Globulin Ratio 1.9 Random Vancomycin 18.8 Urine Opiates Screen Urine Fentanyl Screen Ur Barbiturates Screen U Amphetamin/Meth Scrn U Benzodiazepines Scrn U Cocaine Metab Screen U Marijuana (THC) Screen RSV Rapid ABG Interpretation ABG results: 11/11/24 11/11/24 11/12/24 04:01 07:38 04:55 ABG pH 7.14 L* 7.37 D 7.26 L D ABG pCO2 71 H* 42 D 44 ABG pO2 116 H 97 95 ABG HCO3 24 24 20 ABG O2 Saturation 97 99 H 98 ABG Base Excess -6 L -1 -7 L Quality Measures Quality Measures none Advance care planning discussed with:: patient Assessment & Plan Assessment Current Active Medications: Generic Name Dose Route Start Last Admin Trade Name Freq PRN Reason Stop Dose Admin Acetaminophen 650 mg 11/11/24 05:17 Acetaminophen 325 Mg Tablet PO 12/11/24 05:16 Q6H PRN Fever >100.5 Albuterol/Ipratropium 3 ml 11/11/24 07:00 11/12/24 06:52 Albuterol/Ipratropium (Duoneb) Rt Poonam 3 Ml Nebu INH 12/11/24 06:59 3 ml Q4HRRT RAYO Administration Amiodarone HCl 200 mg 11/11/24 09:00 11/11/24 21:41 Amiodarone Hcl 200 Mg Tablet NG 12/11/24 08:59 200 mg BID RAYO Administration Apixaban 5 mg 11/11/24 09:00 11/11/24 21:41 Apixaban 2.5 Mg Tablet NG 12/11/24 08:59 5 mg BID RAYO Administration Aspirin 81 mg 11/11/24 09:00 11/11/24 10:13 Aspirin 81 Mg Chew NG 12/11/24 08:59 81 mg QDAY RAYO Administration Atorvastatin Calcium 40 mg 11/11/24 21:00 11/11/24 21:40 Atorvastatin Calcium 20 Mg Tablet NG 12/11/24 20:59 40 mg HS RAYO Administration Calcium Carbonate 600 mg 11/11/24 09:00 11/11/24 21:41 Calcium Carbonate 600 Mg Tablet NG 12/11/24 08:59 600 mg BID RAYO Administration Dextrose 25 ml 11/12/24 06:24 Dextrose 50%-Water Inj 50 Ml Syringe IV 12/12/24 06:23 Q15MIN PRN BG 50-70 responsive npo pt Dextrose 50 ml 11/12/24 06:24 Dextrose 50%-Water Inj 50 Ml Syringe IV 12/12/24 06:23 Q15MIN PRN BG <50 OR BG <70 & pt unresponsive Famotidine 20 mg 11/11/24 09:00 11/12/24 08:46 Famotidine Inj 10 Mg/Ml Vial 2 Ml IVP 12/11/24 08:59 20 mg QDAY RAYO Administration Protocol Glucagon 1 mg 11/12/24 06:24 Glucagon Inj 1 Mg Vial IM Q15MIN PRN BG <70, and no IV access Hydralazine HCl 10 mg 11/11/24 05:30 Hydralazine Inj 20 Mg/Ml Vial IVP 12/11/24 05:29 Q6H PRN SBP>180 Fentanyl Citrate 2,500 mcg in 250 mls @ 2.5 mls/hr 11/11/24 04:27 11/12/24 08:00 Sublimaze Inj 2,500 Mcg/250 Ml Bag IV 11/16/24 04:06 125 mcg/hr .Q24H PRN 12.5 mls/hr PER PROTOCOL Titration Protocol 25 MCG/HR Propofol 1,000 mg in 100 mls @ 2.072 mls/hr 11/11/24 04:27 11/12/24 08:23 Diprivan Ivpb IV 12/11/24 03:37 35 mcg/kg/min .Q24H PRN 14.507 mls/hr Per Protocol Administration Protocol 5 MCG/KG/MIN Ceftriaxone Sodium/Dextrose 1 gm in 50 mls @ 100 mls/hr 11/11/24 11:27 11/11/24 12:52 Rocephin/D5w 1gm Iv Premix IV 11/18/24 11:26 Infused QDAY RAYO Infusion Doxycycline Hyclate 100 mg/ 100 mls @ 100 mls/hr 11/11/24 11:30 11/11/24 21:42 Sodium Chloride IV 11/18/24 11:29 100 mls/hr BID RAYO Administration Norepinephrine/Dextrose 8 mg in 250 mls @ 6.476 mls/hr 11/11/24 16:05 11/12/24 08:44 Levophed In D5w 8mg/250ml IV 12/11/24 16:04 0.09 mcg/kg/min .Q24H PRN 11.658 mls/hr PER PROTOCOL Titration Protocol 0.05 MCG/KG/MIN Methylprednisolone Sodium Succinate 60 mg 11/11/24 09:00 11/11/24 10:15 Methylprednisolone Sod Succ 40 Mg Vial IV 11/18/24 08:59 60 mg QDAY RAYO Administration Midodrine 10 mg 11/11/24 22:00 11/12/24 05:16 Midodrine 5 Mg Tablet NG 12/11/24 21:59 10 mg TID RAYO Administration Ondansetron HCl 4 mg 11/11/24 05:17 Ondansetron Inj 2 Mg/Ml Inj 2 Ml IVP 12/11/24 05:16 Q6H PRN NAUSEA OR VOMITING Protocol Pharmacy Consult 1 each 11/11/24 05:27 Pharmacy Renal Dose Adjustment 1 Ea XX 12/11/24 05:26 PRN PRN CONSULT Sevelamer Carbonate 800 mg 11/12/24 08:00 11/12/24 08:35 Sevelamer Carbonate 800 Mg Tablet NG 12/12/24 07:59 Not Given TIDWM RAYO Sodium Chloride 3 ml 11/11/24 04:43 Sodium Chloride Rt Poonam 0.9% 3 Ml Nebu INH 12/11/24 04:42 PRN PRN SOLN Plan The patient is a 74-year-old female with a history of CHF, CAD with multiple MIs and stents, COPD on 3 L home oxygen, ESRD on hemodialysis, and atrial fibrillation with pacemaker, who presented on 11/11/24 via EMS with acute shortness of breath. At home, she was hypoxic with oxygen saturation in the 80s and received DUONEB during transport. In the ED, she was saturating at 84% on high-flow CPAP, hypertensive to 200/76 mmHg, and altered. ABG demonstrated acute hypercapnic and hypoxic respiratory failure (pH 7.14, pCO? 71, pO? 116). CXR showed right lower lobe pneumonia. Labs revealed leukocytosis, elevated BNP (2005), elevated D-dimer, mild troponin rise (0.046), and creatinine consistent with ESRD. She was intubated, given METHYLPREDNISOLONE, fluids, CEFIXIME, and VANCOMYCIN, and admitted to the ICU. Acute hypoxic/hypercapnic respiratory failure in settings of COPD exacerbation versus suspected pneumonia CAD s/p multiple stents HFrEF, EF 45%, s/p pacemaker Hx paroxysmal atrial fibrillation, rate controlled NSTEMI type II ESRD on hemodialysis Hyperkalemia Chronic normocytic anemia, likely 2/2 CKD She has a known respiratory failure on home 3 L oxygen likely from COPD and CHF. Echo in 2003 showing EF 45%, mild hypokinesis of basal septal/inferior wall as well as mild diastolic dysfunction, in addition to mild to severe mitral annular calcification, moderate MR, trace AI/PI, mild TR. Additionally, EKG from 2023 showed atrial fibrillation, currently in sinus rhythm, likely paroxysmal. She is presenting with shortness of breath, desatting in 80s at home. Additionally, ABGs showed severe acidosis with pH 7.14, PCO2 71. Moreover, she had hypertensive emergency with BP 200/76. CXR showed significant bibasilar pneumonia. Her symptoms were consistent with COPD exacerbation with likely pneumonia. No signs of volume overload on exam. She had NSTEMI type II with Troponin peaked at 0.089, likely demand ischemia in settings of hypoxemia and hypertensive emergency. Low suspicion for acute coronary syndrome given the she never reported chest pain. However given extensive cardiac history and risk factors, we may consider angiogram/cath once she is hemodynamically stable. 11/12/2024: Continued mechanical ventilation, maintaining adequate MAP, weaning off NOREPINEPHRINE. She had a an increase in troponin to 0.587, again likely type II NSTEMI but acute coronary syndrome cannot be ruled out will require cardiac cath for further evaluation once able. ? Continue pressure support to maintain MAP >65 ? Continue AMIODARONE BID, ASPIRIN daily, ATORVASTATIN, MIDODRINE ? Continue hemodialysis with nephrology team ? Maintain K > 4.0 and Mg > 2.0 ? Strict JOHN's, low-salt diet, fluid restriction ? Continue DuoNebs and ANTIBIOTICS for pneumonia ? Will follow with echocardiogram ? Will need cardiac cath once stable to evaluate for ischemia Case was discussed with attending physician, Dr. Escudero. Richard Gan, DO PGY II This document was transcribed using voice recognition technology. Minor inaccuracies may be present.
--- NOTE | 2024-11-12 08:52 | ESPR_ITS ---
<Statement entered by Omega Phoenix MD - 12/15/24 13:15> TOTAL CC TIME: 45 MIN I saw and evaluated the patient. I reviewed the resident?s note and agree with findings and plan as documented in the resident?s note. Upon my evaluation, this patient had a high probability of imminent or life- threatening deterioration due to resp failure acute on chronic, which required my direct attention, intervention, and personal management. This time is exclusive of time spent on procedures, which are documented separately if performed. MV dynamics acceptable minimize volumes/rate as tolerable - allow permissive hypercapnia to avoid overdistention f/u clx - cont abx systemic steroids monitor fluid balance closely home meds resumed as appropriate. Documentation for date of: 11/12/24 Subjective Subjective Interval history: The patient is a 74-year-old female with significant past medical history of CHF, coronary artery disease with multiple MIs s/p stents, COPD on 3 L home oxygen, ESRD on hemodialysis, Thursday, Thursday, , Thursday, A-fib with pacemaker, brought in by EMS with chief complaint of acute SOB. The patient called EMS due to SOB, and she was saturating on 80s at her home. She was given DuoNeb on the way to hospital, and when she presented to ED, her saturation was 84 on high flow CPAP. She was already altered, and was intubated. Further history were unobtainable, as patient was already intubated during my evaluation. In the ED her vitals were significant for a blood pressure of 200/76, pulse 79, RR 20, labs are significant for white count 13.5, RBC 3.88, hemoglobin 11.1, D- dimer 2630, ABG revealed pH of 7.14, pCO2 71, pO2 116, bicarb 24, sodium 135, potassium 4.6, BUN 39, creatinine 6.4, lactic acid 4.1, corrected calcium 7.7, magnesium 2.2, AST/ALT/ALP less than 10, less than 10/05/2027 respectively. Ammonia was 17, troponin 0.046, CRP less than 0.5, BNP 2005, lipid panel revealed LDL 116, lipase 68, TSH 6.61, free T4 0.84. UA revealed orange urine, 2+ protein, 2+ blood, leukocyte Estrace positive, RBC 502, WBC 1255, chest x-ray revealed right lower lobe pneumonia, EKG revealed old [place]. The patient received methylprednisone 125 Mg IV x 1, bolus fluid 1 L at the rate 250 cc/h, cefixime 2 g IV x 1, and started on vancomycin. The patient was intubated and admitted to ICU for further management of acute hypoxic hypercapnic respiratory failure secondary to COPD exacerbation. 11/11/2024: Patient is sedated and on mechanical ventilator. Most of the history is taken from the chart review and from the nurse at the bedside. Patient supposedly lives alone and developed shortness of breath, for which she called the EMS. By the time EMS went her home she was severely short of breath for which she was given DuoNebs and was kept on CPAP following which she was brought to the hospital where she was given steroids, sedated and intubated. Later central line was placed. No acute overnight events. Vitals are stable and patient is on propofol and fentanyl drip without any vasopressor support. Started on methylprednisolone 60 Mg IV once daily, ceftriaxone and azithromycin. Repeat ABG after the intubation is within normal limits. Will continue mechanical ventilation for now and monitor the patient. Later in the evening, patient is found to be mildly hypotensive for which low-dose Levophed was started and patient was given a dose of midodrine 10 Mg through orogastric tube. 11/12/2024: Patient is seen and examined at bedside in the ICU. No acute overnight events. Sedated and on mechanical ventilator, VC/AC mode with tidal volume 380, PEEP 5, FiO2 30% and saturating around 95%. Vitals are stable and patient is mildly hypotensive, started on Levophed which was stopped around 7 AM this morning, maintain blood pressures only on minimal doses of Levophed 0.05 mcg/kg/min. Labs done this morning showed mild leukocytosis, sodium 131, potassium 5.5, BUN 61, creatinine 7.9, bicarb 19.2, phosphorus 7.8. ABG showed metabolic acidosis Patient missed her dialysis session yesterday which was started this morning and Levophed is restarted to support the blood pressure during dialysis. Tolerated dialysis well on 2 L of fluid is taken. Patient was changed from VC/AC mode to pressure support mode. Will repeat ABG tomorrow morning and if patient is hemodynamically stable, able to respond after weaning of the sedation, planning to wean her off the mechanical ventilator. Exam Vital Signs Temp Pulse Resp BP Pulse Ox O2 Del Method O2 Flow Rate 97.5 F 70 22 H 102/43 L 99 Mechanical Ventilation 80 11/12/24 04:00 11/12/24 08:45 11/12/24 07:54 11/12/24 08:45 11/12/24 07:54 11/11/24 20:00 11/11/24 04:35 FiO2 30 11/12/24 07:54 Narrative Exam General: Sedated and Mechanically ventilated. HEENT: Normocephalic, atraumatic, mucous membranes moist. Heart: Regular rate and rhythm, no murmurs. Lungs: Clear to auscultation with no wheezing or crackles. Abdomen: Soft, nondistended, nontender, positive bowel sounds. ?No guarding or rebound tenderness. Neurologic: Sedated and mechanically ventilated. Extremities: No edema. Left AV fistula noted Skin: No rash or ecchymoses. Objective Labs 11/12/24 04:32 11/12/24 08:21 Labs: Laboratory Results - last 24 hr 11/11/24 11/11/24 11/11/24 04:10 11:08 11:55 WBC RBC Hgb Hct MCV MCH MCHC RDW Std Deviation Plt Count Neut % (Auto) Lymph % (Auto) [place] % (Auto) Eos % (Auto) Baso % (Auto) Neut # (Auto) Lymph # (Auto) [place] # (Auto) Eos # (Auto) Baso # (Auto) Immature Gran # (Auto) Absolute Nucleated RBC Immature Gran % Nucleated RBC % Puncture Site ABG pH ABG pCO2 ABG pO2 ABG HCO3 ABG O2 Saturation ABG Base Excess FiO2 Sodium Potassium Chloride Carbon Dioxide Anion Gap BUN Creatinine Estim Creat Clear Calc eGFR BUN/Creatinine Ratio Glucose Calculated Osmolality Calcium Corrected Calcium Phosphorus Magnesium Total Bilirubin AST ALT Alkaline Phosphatase Troponin I 0.089 H* Total Protein Albumin Globulin Albumin/Globulin Ratio Random Vancomycin Urine Opiates Screen Negative Urine Fentanyl Screen Negative Ur Barbiturates Screen Negative U Amphetamin/Meth Scrn Negative U Benzodiazepines Scrn Negative U Cocaine Metab Screen Negative U Marijuana (THC) Screen Negative RSV Rapid Negative 11/11/24 11/12/24 11/12/24 14:27 04:32 04:55 WBC 16.5 H RBC 3.39 L Hgb 10.0 L Hct 31.0 L MCV 91 MCH 29.5 MCHC 32.3 RDW Std Deviation 60.6 H Plt Count 165 Neut % (Auto) 85 H Lymph % (Auto) 5 L [place] % (Auto) 9 Eos % (Auto) 0 Baso % (Auto) 0 Neut # (Auto) 14.0 H Lymph # (Auto) 0.8 L [place] # (Auto) 1.6 H Eos # (Auto) 0.0 Baso # (Auto) 0.0 Immature Gran # (Auto) 0.11 H Absolute Nucleated RBC 0.00 Immature Gran % 1 H Nucleated RBC % 0 Puncture Site Right Brachial ABG pH 7.26 L D ABG pCO2 44 ABG pO2 95 ABG HCO3 20 ABG O2 Saturation 98 ABG Base Excess -7 L FiO2 21 Sodium 131 L Potassium 6.8 H* D Chloride 94 L Carbon Dioxide 19.2 L Anion Gap 18 H BUN 61 H Creatinine 7.9 H* D Estim Creat Clear Calc 5.9 L eGFR 5 L* BUN/Creatinine Ratio 8 L Glucose 117 H D Calculated Osmolality 280 Calcium 8.4 Corrected Calcium 8.7 Phosphorus 7.8 H Magnesium 2.2 Total Bilirubin 0.2 L AST 17 ALT < 7 L Alkaline Phosphatase 100 D Troponin I 0.587 H* D Total Protein 5.5 L Albumin 3.6 D Globulin 1.9 L Albumin/Globulin Ratio 1.9 Random Vancomycin 18.8 Urine Opiates Screen Urine Fentanyl Screen Ur Barbiturates Screen U Amphetamin/Meth Scrn U Benzodiazepines Scrn U Cocaine Metab Screen U Marijuana (THC) Screen RSV Rapid ABG Interpretation ABG results: 11/11/24 11/11/24 11/12/24 04:01 07:38 04:55 ABG pH 7.14 L* 7.37 D 7.26 L D ABG pCO2 71 H* 42 D 44 ABG pO2 116 H 97 95 ABG HCO3 24 24 20 ABG O2 Saturation 97 99 H 98 ABG Base Excess -6 L -1 -7 L Quality Measures Quality Measures none Advance care planning discussed with:: other Assessment & Plan Assessment Current Active Medications: Generic Name Dose Route Start Last Admin Trade Name Freq PRN Reason Stop Dose Admin Acetaminophen 650 mg 11/11/24 05:17 Acetaminophen 325 Mg Tablet PO 12/11/24 05:16 Q6H PRN Fever >100.5 Albuterol/Ipratropium 3 ml 11/11/24 07:00 11/12/24 06:52 Albuterol/Ipratropium (Duoneb) Rt Poonam 3 Ml Nebu INH 12/11/24 06:59 3 ml Q4HRRT RAYO Administration Amiodarone HCl 200 mg 11/11/24 09:00 11/11/24 21:41 Amiodarone Hcl 200 Mg Tablet NG 12/11/24 08:59 200 mg BID RAYO Administration Apixaban 5 mg 11/11/24 09:00 11/11/24 21:41 Apixaban 2.5 Mg Tablet NG 12/11/24 08:59 5 mg BID RAYO Administration Aspirin 81 mg 11/11/24 09:00 11/11/24 10:13 Aspirin 81 Mg Chew NG 12/11/24 08:59 81 mg QDAY RAYO Administration Atorvastatin Calcium 40 mg 11/11/24 21:00 11/11/24 21:40 Atorvastatin Calcium 20 Mg Tablet NG 12/11/24 20:59 40 mg HS RAYO Administration Calcium Carbonate 600 mg 11/11/24 09:00 11/11/24 21:41 Calcium Carbonate 600 Mg Tablet NG 12/11/24 08:59 600 mg BID RAYO Administration Dextrose 25 ml 11/12/24 06:24 Dextrose 50%-Water Inj 50 Ml Syringe IV 12/12/24 06:23 Q15MIN PRN BG 50-70 responsive npo pt Dextrose 50 ml 11/12/24 06:24 Dextrose 50%-Water Inj 50 Ml Syringe IV 12/12/24 06:23 Q15MIN PRN BG <50 OR BG <70 & pt unresponsive Famotidine 20 mg 11/11/24 09:00 11/12/24 08:46 Famotidine Inj 10 Mg/Ml Vial 2 Ml IVP 12/11/24 08:59 20 mg QDAY RAYO Administration Protocol Glucagon 1 mg 11/12/24 06:24 Glucagon Inj 1 Mg Vial IM Q15MIN PRN BG <70, and no IV access Hydralazine HCl 10 mg 11/11/24 05:30 Hydralazine Inj 20 Mg/Ml Vial IVP 12/11/24 05:29 Q6H PRN SBP>180 Fentanyl Citrate 2,500 mcg in 250 mls @ 2.5 mls/hr 11/11/24 04:27 11/12/24 08:00 Sublimaze Inj 2,500 Mcg/250 Ml Bag IV 11/16/24 04:06 125 mcg/hr .Q24H PRN 12.5 mls/hr PER PROTOCOL Titration Protocol 25 MCG/HR Propofol 1,000 mg in 100 mls @ 2.072 mls/hr 11/11/24 04:27 11/12/24 08:50 Diprivan Ivpb IV 12/11/24 03:37 30 mcg/kg/min .Q24H PRN 12.435 mls/hr Per Protocol Titration Protocol 5 MCG/KG/MIN Ceftriaxone Sodium/Dextrose 1 gm in 50 mls @ 100 mls/hr 11/11/24 11:27 11/11/24 12:52 Rocephin/D5w 1gm Iv Premix IV 11/18/24 11:26 Infused QDAY RAYO Infusion Doxycycline Hyclate 100 mg/ 100 mls @ 100 mls/hr 11/11/24 11:30 11/11/24 21:42 Sodium Chloride IV 11/18/24 11:29 100 mls/hr BID RAYO Administration Norepinephrine/Dextrose 8 mg in 250 mls @ 6.476 mls/hr 11/11/24 16:05 11/12/24 08:44 Levophed In D5w 8mg/250ml IV 12/11/24 16:04 0.09 mcg/kg/min .Q24H PRN 11.658 mls/hr PER PROTOCOL Titration Protocol 0.05 MCG/KG/MIN Methylprednisolone Sodium Succinate 60 mg 11/11/24 09:00 11/11/24 10:15 Methylprednisolone Sod Succ 40 Mg Vial IV 11/18/24 08:59 60 mg QDAY RAYO Administration Midodrine 10 mg 11/11/24 22:00 11/12/24 05:16 Midodrine 5 Mg Tablet NG 12/11/24 21:59 10 mg TID RAYO Administration Ondansetron HCl 4 mg 11/11/24 05:17 Ondansetron Inj 2 Mg/Ml Inj 2 Ml IVP 12/11/24 05:16 Q6H PRN NAUSEA OR VOMITING Protocol Pharmacy Consult 1 each 11/11/24 05:27 Pharmacy Renal Dose Adjustment 1 Ea XX 12/11/24 05:26 PRN PRN CONSULT Sevelamer Carbonate 800 mg 11/12/24 08:00 11/12/24 08:35 Sevelamer Carbonate 800 Mg Tablet NG 12/12/24 07:59 Not Given TIDWM RAYO Sodium Chloride 3 ml 11/11/24 04:43 Sodium Chloride Rt Poonam 0.9% 3 Ml Nebu INH 12/11/24 04:42 PRN PRN SOLN Plan The patient is a 74-year-old female with significant past medical history of CHF, coronary artery disease with multiple MIs s/p stents, COPD on 3 L home oxygen, ESRD on hemodialysis, Thursday, Thursday, , Thursday, A-fib with pacemaker, brought in by EMS with chief complaint of acute SOB. The patient was intubated and admitted to ICU for further management of acute hypoxic hypercapnic respiratory failure secondary to COPD exacerbation. Neuro: #Acute encephalopathy Differential diagnosis: CO2 narcosis versus sedation metabolic versus hypertensive encephalopathy. - CO2 narcosis: Likely as patient had history of COPD [on 3 L of oxygen at home], brought to the hospital with chief complaints of shortness of breath and noted to have severe wheeze for which she was given DuoNebs by the EMS and was kept on CPAP during admit to the hospital. - Sedation: Patient is currently on propofol and fentanyl, which could be the cause of encephalopathy for now as patient ABG significantly improved. - Metabolic: Patient had history of ESRD on HD, unsure of last dialysis session but per her medical microbiologist, Dr. Mishra she is getting dialysis 4 times in a week -Hypertensive encephalopathy: Blood pressure at the time of admission is 200/76 mmHg, unlikely as patient is having hypoxia and hypercapnia at the time of presentation and noted to have wheeze at the time of presentation Diagnostic test: - ABG at the time of admission showed pH 7.14, pCO2 71, PaO2 116, bicarb 24, oxygen saturation 97. - Chest x-ray showed cardiomegaly, infiltrates more on the right basilar area. - Labs showed WBC 13.5 - Tested negative for influenza A and B, COVID-19 Plan - Started on methylprednisolone 60 Mg IV daily - Started on ceftriaxone and doxycycline [11/11-in view of suspected pneumonia in the setting of exacerbation - Patient is currently on mechanical ventilator, VC/AC mode tidal volume 380, respiratory rate 22, PEEP 5, FiO2 30% - Currently patient is on mechanical ventilator with sedation, distention heard from VC/AC mode to pressure support. Will wean her off sedation tomorrow after repeating the blood gas and chest x-ray and will try to extubate her if patient is hemodynamically stable CVS: # CAD s/p multiple stents # S/p pacemaker # HFrEF, EF 45% in 2023 - Though patient presented with acute SOB, was found to have BNP 2000, no JVD or peripheral edema noted - EKG showed paced rhythm with ST elevation in 1, aVL and reciprocal depressions in 2, 3 and aVF suggestive of old [place] Plan - Low-sodium diet - Fluid restriction to 1500 cc daily - Talked to suspect artist supervisor, Dr. Escudero about the EKG findings and he recommended that ST elevations are from old [place] and does not require any acute interventions as of now # History of atrial fibrillation, currently in normal sinus rhythm - Patient never had documented episodes of atrial fibrillation but on pacemaker tracing, noted to have atrial fibrillation for which patient was started on amiodarone and Eliquis - Resumed her home amiodarone 200 Mg twice daily and Eliquis 5 mg twice daily through the OG tube # NSTEMI, likely type II - Troponin is mildly elevated at the time of admission, 0.046 - Later troponins found to be downtrending - Though EKG showed changes of ST elevation, they are likely from the old AZ - Will continue telemetry monitoring Pulmonology: #Acute hypoxic hypercapnic respiratory failure 2/ #COPD exacerbation Likely in the setting of worsening disease or superimposed bacterial infection Diagnostic test: - Tested negative for influenza A, B and COVID-19 - ABG at the time of admission showed pH 7.14, pCO2 71, PaO2 116, bicarb 24, oxygen saturation 97. - Chest x-ray showed cardiomegaly, infiltrates more on the right basilar area. - Labs showed WBC 13.5 - Tested negative for influenza A and B, COVID-19 - Blood culture and ET secretions culture pending Treatment: - Patient is sedated, intubated and mechanically ventilated - Received methylprednisolone 125 Mg IV x 1 in the ED - Started on methylprednisolone 60 Mg IV daily - Nebulizations every fourth of every, DuoNebs - Will do repeat ABG as needed and try to wean her off the ventilator based on hemodynamic status and her ABG GI: - No active problems Renal: #Combined respiratory and metabolic acidosis #ESRD on HD -Patient is having 4 dialysis sessions per week At the time of admission, pH of 7.14, pCO2 71, lactic acid 4.1 Plan -Director Career Services Dr. Mishra consulted, appreciate recommendations -Received HD session today and 2 L of fluid is taken - Will need HD as per her routine schedule - Will avoid nephrotoxic medications and renally dose medications #Hypocalcemia Presented with calcium of 7.7 - Started on calcium carbonate 600 Mg twice daily via NG tube Hematology: #Leukocytosis Reactive versus steroid versus infective Secondary to pneumonia and COPD exacerbation - Continue to treat underlying cause #Normocytic anemia DDx: Inflammatory anemia due to chronic kidney disease, versus nutritional deficiency versus malabsorption - Workup as an outpatient basis ID: # Suspected community-acquired pneumonia - Antibiotic therapy treatment as above -Pending blood culture and ET secretion culture Health maintenance: Dispo: Patient admitted to ICU for further management of acute hypoxic hypercapnic respiratory failure secondary to COPD exacerbation Diet: Started on tube feeds through OG tube Lines: Left IJ central line, peripheral lines DVT prophylaxis: Eliquis 5 Mg twice daily CODE STATUS: Full code Patient plan of care was discussed with the almond huller, Dr. Alban Husain, PGY2
[2024-11-12 08:53] LABS: Potassium 5.5 mMol/L (3.4-5.1)
--- NOTE | 2024-11-12 09:02 | PC.SS ---
Update: Patient receiving dialysis session today. Patient is established with out patient dialysis. Dr. Mishra is [facility] solution architect.
--- NOTE | 2024-11-12 09:03 | PC.SS ---
MUD ANALYSIS WELL LOGGING OPERATOR attempted phone contact with patient's point of contact, Ifeanyi Smith . No response MUD ANALYSIS WELL LOGGING OPERATOR left voicemail requesting return call. Phone call an attempt to complete initial assessment.
--- NOTE | 2024-11-12 11:07 | ESPR_ITS ---
Documentation for date of: 11/12/24 Subjective Subjective Interval history: Reason for consult: ESRD, acute respiratory failure, need for dialysis History of present illness: Mirella Grewal is a 74-year-old F with a PMH of CHF, coronary artery disease with multiple MIs s/p stents, COPD on 3 L home oxygen, ESRD on hemodialysis, Thursday, Thursday, , Thursday, and A-fib with pacemaker, who was brought in by EMS with a chief complaint of acute SOB. Per Internal Medicine team note, the patient called EMS due to SOB, and was saturating around 80% at home. She was given DuoNebs on the way to hospital and, when she presented to the ED, was saturating at 84% on high-flow CPAP. At this point, she was already altered, and was intubated. Internal Medicine team could not obtain further history due to patient already being intubated during their evaluation. Patient could not be interviewed by this conventional underwriter due to being intubated at time of evaluation. Of note, patient has multiple prior hospitalizations for similar presentations of acute hypoxic respiratory failure including in November 2023 and September 2023. In the ED, vitals showed: BP 200/76 HR 79 RR 20 Temp 98.6 SpO2 84% on high flow CPAP ED Course: CBC showed high WBC 13.5, and low Hgb 11.1 (MCV 96, RDW 63.4). Coagulation panel showed critically elevated D-dimer 2630 but was otherwise within normal limits. ABG showed normal pH 7.37, normal pCO2 42, normal PO2 97, and normal HCO3 24. CMP showed high BUN 39, critically elevated creatinine 6.4, critically low EGFR 6, high lactic acid 4.1, high blood glucose 184, low corrected calcium 7.7, c ritically elevated troponin I 0.046, critically elevated BNP 2006, high TSH 6.61, and low free T4 0.84. UA showed turbid orange urine with a basic pH of 8.0. It also showed 2+ urine protein, 2+ urine blood, high urine RBC 502, high urine WBC 1255, high urine squamous epithelial cells 29, but no urine bacteria. UDS was negative. Rapid RSV was negative. Imaging: Chest x-ray showed moderate congestive heart failure with prominent vascular congestion and perihilar basilar edema. Head CT was unremarkable. Chest CT showed bilateral thyroid nodules, mild heart failure with moderate enlargement of the cardiac contour, bibasilar pneumonia, numerous bilateral positioned metastatic pulmonary nodules, small bilateral pleural effusions, and cholelithiasis. EKG showed old MA. In the ED, patient was received methylprednisone 125 Mg IV x 1, bolus fluid 1 L at the rate 250 cc/h, cefixime 2 g IV x 1, and was started on vancomycin. The patient was intubated and admitted to ICU for further management of acute hypoxic hypercapnic respiratory failure secondary to COPD exacerbation. We, the nephrology team, were consulted for the patient's combined respiratory and metabolic acidosis and need for urgent hemodialysis due to ESRD status. Cardiology is also following. Interval History 11/12/2024: No overnight events. Patient seen and examined at bedside; she remains intubated and unable to respond to questioning. Patient could not receive hemodialysis yesterday due to being unable to be moved up to ICU. WBC increased from 13.5 to 16.5 and Hgb decreased from 11.1 to 10.0. Other notable worsening labs include Na 131, K 6.8, anion gap 18, BUN increased from 39 to 61, creatinine increased from 6.4 to 7.9, phosphorus 7.8, and troponins uptrended from 0.089 to 0.587. CXR shows new significant bibasilar pneumonia. Hemodialysis for 3.5 hours planned for today. Exam Vital Signs Temp Pulse Resp BP Pulse Ox O2 Del Method O2 Flow Rate 97.8 F 88 22 H 123/55 L 99 Mechanical Ventilation 80 11/12/24 08:00 11/12/24 11:00 11/12/24 10:21 11/12/24 11:00 11/12/24 10:21 11/12/24 08:00 11/11/24 04:35 FiO2 30 11/12/24 10:21 Narrative Exam Physical Exam: General: No acute distress, sedated, intubated and mechanically ventilated HEENT: Moist mucous membranes, oropharynx clear Neck: Supple, No masses, No JVD CVS: S1S2 Regular rate and rhythm, No murmurs, rubs or gallops Lungs: Coarse rhonchi and expiratory wheeze throughout the lung field Abd: Soft, NT/ND, +BS, no organomegaly Ext: No edema, warm and well perfused, prominent fistula on left arm and forearm Skin: No rash Psych: Unobtainable Objective Labs 11/12/24 04:32 11/12/24 08:21 Labs: Laboratory Results - last 24 hr 11/11/24 11/11/24 11/11/24 04:10 11:08 11:55 WBC RBC Hgb Hct MCV MCH MCHC RDW Std Deviation Plt Count Neut % (Auto) Lymph % (Auto) [place] % (Auto) Eos % (Auto) Baso % (Auto) Neut # (Auto) Lymph # (Auto) [place] # (Auto) Eos # (Auto) Baso # (Auto) Immature Gran # (Auto) Absolute Nucleated RBC Immature Gran % Nucleated RBC % Puncture Site ABG pH ABG pCO2 ABG pO2 ABG HCO3 ABG O2 Saturation ABG Base Excess FiO2 Sodium Potassium Chloride Carbon Dioxide Anion Gap BUN Creatinine Estim Creat Clear Calc eGFR BUN/Creatinine Ratio Glucose Calculated Osmolality Calcium Corrected Calcium Phosphorus Magnesium Total Bilirubin AST ALT Alkaline Phosphatase Troponin I 0.089 H* Total Protein Albumin Globulin Albumin/Globulin Ratio Random Vancomycin Urine Opiates Screen Negative Urine Fentanyl Screen Negative Ur Barbiturates Screen Negative U Amphetamin/Meth Scrn Negative U Benzodiazepines Scrn Negative U Cocaine Metab Screen Negative U Marijuana (THC) Screen Negative RSV Rapid Negative 11/11/24 11/12/24 11/12/24 14:27 04:32 04:55 WBC 16.5 H RBC 3.39 L Hgb 10.0 L Hct 31.0 L MCV 91 MCH 29.5 MCHC 32.3 RDW Std Deviation 60.6 H Plt Count 165 Neut % (Auto) 85 H Lymph % (Auto) 5 L [place] % (Auto) 9 Eos % (Auto) 0 Baso % (Auto) 0 Neut # (Auto) 14.0 H Lymph # (Auto) 0.8 L [place] # (Auto) 1.6 H Eos # (Auto) 0.0 Baso # (Auto) 0.0 Immature Gran # (Auto) 0.11 H Absolute Nucleated RBC 0.00 Immature Gran % 1 H Nucleated RBC % 0 Puncture Site Right Brachial ABG pH 7.26 L D ABG pCO2 44 ABG pO2 95 ABG HCO3 20 ABG O2 Saturation 98 ABG Base Excess -7 L FiO2 21 Sodium 131 L Potassium 6.8 H* D Chloride 94 L Carbon Dioxide 19.2 L Anion Gap 18 H BUN 61 H Creatinine 7.9 H* D Estim Creat Clear Calc 5.9 L eGFR 5 L* BUN/Creatinine Ratio 8 L Glucose 117 H D Calculated Osmolality 280 Calcium 8.4 Corrected Calcium 8.7 Phosphorus 7.8 H Magnesium 2.2 Total Bilirubin 0.2 L AST 17 ALT < 7 L Alkaline Phosphatase 100 D Troponin I 0.587 H* D Total Protein 5.5 L Albumin 3.6 D Globulin 1.9 L Albumin/Globulin Ratio 1.9 Random Vancomycin 18.8 Urine Opiates Screen Urine Fentanyl Screen Ur Barbiturates Screen U Amphetamin/Meth Scrn U Benzodiazepines Scrn U Cocaine Metab Screen U Marijuana (THC) Screen RSV Rapid 11/12/24 08:21 WBC RBC Hgb Hct MCV MCH MCHC RDW Std Deviation Plt Count Neut % (Auto) Lymph % (Auto) [place] % (Auto) Eos % (Auto) Baso % (Auto) Neut # (Auto) Lymph # (Auto) [place] # (Auto) Eos # (Auto) Baso # (Auto) Immature Gran # (Auto) Absolute Nucleated RBC Immature Gran % Nucleated RBC % Puncture Site ABG pH ABG pCO2 ABG pO2 ABG HCO3 ABG O2 Saturation ABG Base Excess FiO2 Sodium Potassium 5.5 H D Chloride Carbon Dioxide Anion Gap BUN Creatinine Estim Creat Clear Calc eGFR BUN/Creatinine Ratio Glucose Calculated Osmolality Calcium Corrected Calcium Phosphorus Magnesium Total Bilirubin AST ALT Alkaline Phosphatase Troponin I Total Protein Albumin Globulin Albumin/Globulin Ratio Random Vancomycin Urine Opiates Screen Urine Fentanyl Screen Ur Barbiturates Screen U Amphetamin/Meth Scrn U Benzodiazepines Scrn U Cocaine Metab Screen U Marijuana (THC) Screen RSV Rapid ABG Interpretation ABG results: 11/11/24 11/11/24 11/12/24 04:01 07:38 04:55 ABG pH 7.14 L* 7.37 D 7.26 L D ABG pCO2 71 H* 42 D 44 ABG pO2 116 H 97 95 ABG HCO3 24 24 20 ABG O2 Saturation 97 99 H 98 ABG Base Excess -6 L -1 -7 L Quality Measures Quality Measures none Advance care planning discussed with:: patient Assessment & Plan Assessment Current Active Medications: Generic Name Dose Route Start Last Admin Trade Name Freq PRN Reason Stop Dose Admin Acetaminophen 650 mg 11/11/24 05:17 Acetaminophen 325 Mg Tablet PO 12/11/24 05:16 Q6H PRN Fever >100.5 Albuterol/Ipratropium 3 ml 11/11/24 07:00 11/12/24 10:20 Albuterol/Ipratropium (Duoneb) Rt Poonam 3 Ml Nebu INH 12/11/24 06:59 3 ml Q4HRRT RAYO Administration Amiodarone HCl 200 mg 11/11/24 09:00 11/11/24 21:41 Amiodarone Hcl 200 Mg Tablet NG 12/11/24 08:59 200 mg BID RAYO Administration Apixaban 5 mg 11/11/24 09:00 11/11/24 21:41 Apixaban 2.5 Mg Tablet NG 12/11/24 08:59 5 mg BID RAYO Administration Aspirin 81 mg 11/11/24 09:00 11/11/24 10:13 Aspirin 81 Mg Chew NG 12/11/24 08:59 81 mg QDAY RAYO Administration Atorvastatin Calcium 40 mg 11/11/24 21:00 11/11/24 21:40 Atorvastatin Calcium 20 Mg Tablet NG 12/11/24 20:59 40 mg HS RAYO Administration Calcium Carbonate 600 mg 11/11/24 09:00 11/11/24 21:41 Calcium Carbonate 600 Mg Tablet NG 12/11/24 08:59 600 mg BID RAYO Administration Dextrose 25 ml 11/12/24 06:24 Dextrose 50%-Water Inj 50 Ml Syringe IV 12/12/24 06:23 Q15MIN PRN BG 50-70 responsive npo pt Dextrose 50 ml 11/12/24 06:24 Dextrose 50%-Water Inj 50 Ml Syringe IV 12/12/24 06:23 Q15MIN PRN BG <50 OR BG <70 & pt unresponsive Famotidine 20 mg 11/11/24 09:00 11/12/24 08:46 Famotidine Inj 10 Mg/Ml Vial 2 Ml IVP 12/11/24 08:59 20 mg QDAY RAYO Administration Protocol Glucagon 1 mg 11/12/24 06:24 Glucagon Inj 1 Mg Vial IM Q15MIN PRN BG <70, and no IV access Hydralazine HCl 10 mg 11/11/24 05:30 Hydralazine Inj 20 Mg/Ml Vial IVP 12/11/24 05:29 Q6H PRN SBP>180 Fentanyl Citrate 2,500 mcg in 250 mls @ 2.5 mls/hr 11/11/24 04:27 11/12/24 09:00 Sublimaze Inj 2,500 Mcg/250 Ml Bag IV 11/16/24 04:06 125 mcg/hr .Q24H PRN 12.5 mls/hr PER PROTOCOL Titration Protocol 25 MCG/HR Propofol 1,000 mg in 100 mls @ 2.072 mls/hr 11/11/24 04:27 11/12/24 09:00 Diprivan Ivpb IV 12/11/24 03:37 30 mcg/kg/min .Q24H PRN 12.435 mls/hr Per Protocol Titration Protocol 5 MCG/KG/MIN Ceftriaxone Sodium/Dextrose 1 gm in 50 mls @ 100 mls/hr 11/11/24 11:27 11/11/24 12:52 Rocephin/D5w 1gm Iv Premix IV 11/18/24 11:26 Infused QDAY RAYO Infusion Doxycycline Hyclate 100 mg/ 100 mls @ 100 mls/hr 11/11/24 11:30 11/11/24 21:42 Sodium Chloride IV 11/18/24 11:29 100 mls/hr BID RAYO Administration Norepinephrine/Dextrose 8 mg in 250 mls @ 6.476 mls/hr 11/11/24 16:05 11/12/24 09:17 Levophed In D5w 8mg/250ml IV 12/11/24 16:04 0.11 mcg/kg/min .Q24H PRN 14.248 mls/hr PER PROTOCOL Titration Protocol 0.05 MCG/KG/MIN Methylprednisolone Sodium Succinate 60 mg 11/11/24 09:00 11/11/24 10:15 Methylprednisolone Sod Succ 40 Mg Vial IV 11/18/24 08:59 60 mg QDAY RAYO Administration Midodrine 10 mg 11/11/24 22:00 11/12/24 05:16 Midodrine 5 Mg Tablet NG 12/11/24 21:59 10 mg TID RAYO Administration Ondansetron HCl 4 mg 11/11/24 05:17 Ondansetron Inj 2 Mg/Ml Inj 2 Ml IVP 12/11/24 05:16 Q6H PRN NAUSEA OR VOMITING Protocol Pharmacy Consult 1 each 11/11/24 05:27 Pharmacy Renal Dose Adjustment 1 Ea XX 12/11/24 05:26 PRN PRN CONSULT Sevelamer Carbonate 800 mg 11/12/24 08:00 11/12/24 08:35 Sevelamer Carbonate 800 Mg Tablet NG 12/12/24 07:59 Not Given TIDWM RAYO Sodium Chloride 3 ml 11/11/24 04:43 Sodium Chloride Rt Poonam 0.9% 3 Ml Nebu INH 12/11/24 04:42 PRN PRN SOLN Plan Mirella Grewal is a 74-year-old F with a PMH of CHF, coronary artery disease with multiple MIs s/p stents, COPD on 3 L home oxygen, ESRD on hemodialysis, Thursday, Thursday, , Thursday, and A-fib with pacemaker, who was brought in by EMS with a chief complaint of acute SOB. The patient was intubated and admitted to ICU for further management of acute hypoxic hypercapnic respiratory failure secondary to COPD exacerbation. We, the nephrology team, were consulted for the patient's combined respiratory and metabolic acidosis and need for urgent hemodialysis due to ESRD status. Patient could not receive hemodialysis yesterday and is planned for 3.5 hours of hemodialysis today. #Combined respiratory and metabolic acidosis #ESRD on HD (Thursday, Thursday, , Thursday) Admission ABG showed pH 7.14 and pCO2 71, elevated lactic acid 4.1 Admission creatinine 6.4 (baseline: possibly 4.8-4.9), BUN 39, eGFR 6 11/12/24: worsening kidney function and toxic buildup due to no HD yesterday, creatinine 7.9, BUN 61, K 6.8, phosphorus 7.8 Patient has a left-sided fistula and receives her HD on / Diagnostic Inquiry -No current recommendation Treatment Plan -Urgent hemodialysis #Possible CHF exacerbation, likely 2/2 volume overload in the setting of ESRD #Pleural Effusion Critically elevated BNP 2005 with elevated troponin I 0.046 Chest x-ray showed moderate congestive heart failure with prominent vascular congestion and perihilar basilar edema Chest CT showed mild heart failure with moderate enlargement of the cardiac contour with small bilateral pleural effusions Diagnostic Inquiry -Cardiology has been consulted, advance per recommendations Treatment Plan -Urgent hemodialysis #Hypocalcemia, likely 2/2 ESRD status (resolving) Admission calcium 7.7, now 8.7 s/p IV calcium gluconate 1000 mg Diagnostic Inquiry -No current recommendation Treatment Plan -Continue NG calcium carbonate BID per primary care team -Monitor electrolyte levels, correct as needed #Normocytic anemia, likely 2/2 ESRD status Admission Hgb 11.1 (MCV 96, RDW 63.4) 11/12/24: Hgb dropped to 10.0 -s/p Epoetin 10,000 U x1 Diagnostic Inquiry -Pursue outpatient workup per primary care team Treatment Plan -Monitor H&H, transfuse if Hgb<7 #Other medical problems #Acute encephalopathy likely 2/2 CO2 narcolepsy in the setting of COPD exacerbation #Acute hypoxic hypercapnic respiratory failure likely 2/2 CHF exacerbation vs. COPD exacerbation vs. both #COPD exacerbation #Community-acquired pneumonia #Leukocytosis #CAD s/p stents #Hx of A-fib, on Eliquis and s/p pacemaker Diagnostic Inquiry -Continue management per primary care team Treatment Plan -Continue management per primary care team Hospital Management: Disposition: Patient admitted to ICU for further management of acute hypoxic hypercapnic respiratory failure secondary to COPD exacerbation, requires urgent HD Diet: NPO Lines: Left IJ central line, peripheral lines DVT Prophylaxis: Eliquis 5 mg BID CODE STATUS: Full Code Thank you for allowing us to be part of the patient's care. I have examined the patient and conferred with the nephrology attending, Dr. Mishra, regarding them. Tim Pineda, PGY-1 Internal Medicine Attending Provider Attestation/Addendum Patient seen and examined with resident physician Dr. Pineda. Note reviewed, agree with findings and recommendations. Patient admitted with acute respiratory failure from fluid overload and pneumonia. Currently on ventilator.In ICU. Intubated and sedated renal consultation requested for need for dialysis. Patient could not get dialysis last night as she was moved to ICU early this morning. Patient on dialysis. Tolerating dialysis without any problems. Hemodialysis for 3.5 hours, 2K, ultrafiltration 2-3 L, Epogen 6000, no heparin ordered. Plan of care discussed with the dialysis nurse. Please see dialysis flowsheet for further details. Hopefully after dialysis she can be weaned extubated. Spoke to ICU team. Thank you Dr. Phoenix for allowing me to participate in the care of Ms. Grewal
[2024-11-12] MEDS: cefTRIAXone/D5w 1gm IV premix 1 GM/50 ML BAG IV (11:53)
[2024-11-12] MEDS: DOXYCYCLINE INJ 100 MG in SODIUM CHLORIDE 0.9% (POP) 100 ML IV ×2 (11:54→20:06)
[2024-11-12] MEDS: CALCIUM CARBONATE 600 MG TABLET NG ×2 (11:55→20:05)
[2024-11-12] MEDS: AMIODARONE HCL 200 MG TABLET NG ×2 (11:55→20:05)
[2024-11-12] MEDS: ASPIRIN 81 MG CHEW NG (11:55)
[2024-11-12] MEDS: VANCOMYCIN/NS 750 MG IVPB 750 MG/150 ML BAG 120 MG IV (11:58)
[2024-11-12] MEDS: PROPOFOL 1,000 MG IVPB 1,000 MG/100 ML VIAL 12.435 MG IV (14:25)
--- NOTE | 2024-11-12 16:00 | PC.DIETICIAN ---
Dietitian recommendation: When indicated by MD, consider advancing Vital 1.2- 10 ml every 8 hrs to goal rate of 55ml/hr x 24 hrs via OGT by pump Provides: 1320ml total volume, 1584 kcal, 99g protein If no IV fluids, water flushes of 25 ml/hr (or as recommended by MD). Thank you
[2024-11-12] MEDS: SEVELAMER CARBONATE 0.8 GM PACKET (NON-FORMULARY) NG (18:08)
[2024-11-12] MEDS: ATORVASTATIN CALCIUM 20 MG TABLET 40 MG NG (20:05)
[2024-11-13] VITALS (94 sets, daily range): BP systolic 88–200; BP diastolic 36–105; PULSE 69–180; RESP 7–27; TEMP 36–37.5; O2SAT 90–100; BMI 23.9
[2024-11-13] MEDS: PROPOFOL 1,000 MG IVPB 1,000 MG/100 ML VIAL 4.145 MG IV (02:00)
[2024-11-13] MEDS: ALBUTEROL/IPRATROPIUM (Duoneb) RT SOL 3 ML NEBU INH ×6 (02:05→22:41)
[2024-11-13 04:29] LABS: Base Excess 6 (-3-3); HCO3 31 mEq/L (20-26); Inspired Oxygen, FIO2 21 %; O2 Saturation 97 % (91-98); PCO2 48 mmHg (32.0-48.0); PO2 79 mmHg (83-108); pH, Arterial 7.42 (7.35-7.45)
[2024-11-13 04:30] LABS: Allen Test Performed/OK; Puncture Site Left Brachial
--- NOTE | 2024-11-13 05:00 | XR_ITS ---
Examination: AP chest single view Technique one AP portable semiupright chest single view Date and time: November 13, 2024, 0647 hours Comparison November 12, 2024 INDICATIONS: Hypoxic respiratory failure, postintubation FINDINGS: Mild heart failure. Mild to moderate enlargement left ventricle Prominent vascular congestion Worsening pneumonia right base Pneumonia remains left base Endotracheal tube tip 7.2 cm above [place] Cardiac leads stable position Orogastric tube in the stomach, the tip is below the level of the film Left internal jugular central line tip SVC satisfactory position IMPRESSION: Mild heart failure Worsening pneumonia right base, consider aspiration pneumonia
[2024-11-13] MEDS: MIDODRINE 5 MG TABLET 10 MG NG ×2 (06:08→14:58)
[2024-11-13 06:15] LABS: Basophils # (Auto) 0.0 Thou/mm3 (0.0-0.2); Basophils % (Auto) 0 % (0-2.5); Eosinophils # (Auto) 0.0 Thou/mm3 (0.0-0.5); Eosinophils % (Auto) 0 % (0-10); Hematocrit 27.6 % (36.0-46.0); Hemoglobin 9.1 g/dL (12.0-16.0); Immature Granulocytes Auto 0.07 Thou/mm3 (0.00-0.00); Lymphocytes # (Auto) 1.0 Thou/mm3 (1.0-4.8); Lymphocytes % (Auto) 9 % (10-50); Mean Corpuscular HGB Conc 33.0 g/dl (31.0-37.0); Mean Corpuscular Hemoglobin 29.4 pg (25.0-35.0); Mean Corpuscular Volume 89 fL (80-100); Monocytes # (Auto) 1.2 Thou/mm3 (0.0-0.8); Monocytes % (Auto) 11 % (0-12); Neutrophils # (Auto) 8.6 Thou/mm3 (1.8-7.7); Neutrophils % (Auto) 79 % (37-80); Nucleated Red Blood Cell # 0.00 Thou/mm3 (0.00-0.00); Nucleated Red Blood Cell % 0 /100 WBC (0); Platelet Count 134 Thou/mm3 (140-440); RDW Standard Deviation 59.8 fL (36.4-46.3); Red Blood Count 3.10 Miln/mm3 (4.00-5.20); White Blood Count 10.9 Thou/mm3 (3.6-11.0)
[2024-11-13 07:16] LABS: Alanine Aminotransferase < 7 U/L (10-49); Albumin, Serum 3.4 gm/dL (3.4-4.8); Albumin/Globulin Ratio 2.1 (1.2-2.2); Alkaline Phosphatase 93 U/L (46-116); Anion Gap 15 (7-16); Aspartate Amino Transferase 19 U/L (0-34); BUN/Creatinine Ratio 9 Ratio (12-20); Bilirubin,Total 0.2 mg/dL (0.3-1.2); Blood Urea Nitrogen 42 mg/dL (9-23); Calcium 8.0 mg/dL (8.3-10.6); Calcium (Corrected) 8.5 mg/dL (8.5-10.1); Carbon Dioxide 29.1 mMol/L (20.0-31.0); Chloride 88 mMol/L (98-107); Creatinine (Component) 4.8 mg/dL (0.6-1.3); Estimated Creatinine Clearance 9.8 mL/min (>60); Globulin 1.6 gm/dL (2.3-3.5); Glucose 78 mg/dL (74-106); Magnesium 1.5 mg/dL (1.6-2.6); Osmolality,Calculated 274 (275-295); Phosphorous 5.8 mg/dL (2.4-5.1); Potassium 5.6 mMol/L (3.4-5.1); Sodium 132 mMol/L (136-145); Total Protein 5.0 gm/dL (5.7-8.2); eGFR 9 See Note
[2024-11-13] MEDS: AMIODARONE HCL 200 MG TABLET NG ×2 (08:08→21:00)
[2024-11-13] MEDS: ASPIRIN 81 MG CHEW NG (08:09)
[2024-11-13] MEDS: SOD POLYSTYRENE SULFON SUSP 15 GM/60 ML BTL 30 GM NG ×2 (08:09→20:48)
[2024-11-13] MEDS: cefTRIAXone/D5w 1gm IV premix 1 GM/50 ML BAG IV (08:10)
[2024-11-13] MEDS: DOXYCYCLINE INJ 100 MG in SODIUM CHLORIDE 0.9% (POP) 100 ML IV (08:12)
[2024-11-13] MEDS: FAMOTIDINE INJ 10 MG/ML VIAL 2 ML 20 MG IVP (08:12)
[2024-11-13] MEDS: CALCIUM CARBONATE 600 MG TABLET NG ×2 (08:13→21:01)
[2024-11-13] MEDS: fentaNYL 2,500 MCG/250 ML BAG 2,500 MCG/250 ML BAG 7.5 MCG IV (08:13)
--- NOTE | 2024-11-13 08:14 | PD.RESPRO ---
Documentation for date of: 11/13/24 Subjective Subjective Interval history: Reason for consult: ESRD, acute respiratory failure, need for dialysis History of present illness: Mirella Grewal is a 74-year-old F with a PMH of CHF, coronary artery disease with multiple MIs s/p stents, COPD on 3 L home oxygen, ESRD on hemodialysis, Thursday, Thursday, , Thursday, and A-fib with pacemaker, who was brought in by EMS with a chief complaint of acute SOB. Per Internal Medicine team note, the patient called EMS due to SOB, and was saturating around 80% at home. She was given DuoNebs on the way to hospital and, when she presented to the ED, was saturating at 84% on high-flow CPAP. At this point, she was already altered, and was intubated. Internal Medicine team could not obtain further history due to patient already being intubated during their evaluation. Of note, patient has multiple prior hospitalizations for similar presentations of acute hypoxic respiratory failure including in November 2023 and September 2023. In the ED, vitals showed: BP 200/76 HR 79 RR 20 Temp 98.6 SpO2 84% on high flow CPAP, ED Course: CBC showed high WBC 13.5, and low Hgb 11.1 (MCV 96, RDW 63.4). Coagulation panel showed critically elevated D-dimer 2630 but was otherwise within normal limits. ABG showed normal pH 7.37, normal pCO2 42, normal PO2 97, and normal HCO3 24. CMP showed high BUN 39, critically elevated creatinine 6.4, critically low EGFR 6, high lactic acid 4.1, high blood glucose 184, low corrected calcium 7.7, critically elevated troponin I 0.046, critically elevated BNP 2006, high TSH 6.61, and low free T4 0.84. UA showed turbid orange urine with a basic pH of 8.0. It also showed 2+ urine protein, 2+ urine blood, high urine RBC 502, high urine WBC 1255, high urine squamous epithelial cells 29, but no urine bacteria. UDS was negative. Rapid RSV was negative. Imaging: Chest x-ray showed moderate congestive heart failure with prominent vascular congestion and perihilar basilar edema. Head CT was unremarkable. Chest CT showed bilateral thyroid nodules, mild heart failure with moderate enlargement of the cardiac contour, bibasilar pneumonia, numerous bilateral positioned metastatic pulmonary nodules, small bilateral pleural effusions, and cholelithiasis. EKG showed old AK. In the ED, patient was received methylprednisone 125 Mg IV x 1, bolus fluid 1 L at the rate 250 cc/h, cefixime 2 g IV x 1, and was started on vancomycin. The patient was intubated and admitted to ICU for further management of acute hypoxic hypercapnic respiratory failure secondary to COPD exacerbation. We, the nephrology team, were consulted for the patient's combined respiratory and metabolic acidosis and need for urgent hemodialysis due to ESRD status. Cardiology is also following. Interval History 11/12/2024: No overnight events. Patient seen and examined at bedside; she remains intubated and unable to respond to questioning. Patient could not receive hemodialysis yesterday due to being unable to be moved up to ICU. WBC increased from 13.5 to 16.5 and Hgb decreased from 11.1 to 10.0. Other notable worsening labs include Na 131, K 6.8, anion gap 18, BUN increased from 39 to 61, creatinine increased from 6.4 to 7.9, phosphorus 7.8, and troponins uptrended from 0.089 to 0.587. CXR shows new significant bibasilar pneumonia. Hemodialysis for 3.5 hours planned for today. 11/13/2024: Patient seen and examined at bedside in ICU. she remains intubated, however sedation has been decreased. 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 K 5.6 from 6.8, BUN 42 from 61, Cr 4.8 from 7.9. WBC downtrending 10 from 16. BP 107/42, CXR with bibasilar pna, significant RLL consolidation. continues on CTX 1 gm. NO HD today. Exam Vital Signs Temp Pulse Resp BP Pulse Ox O2 Del Method O2 Flow Rate 96.8 F 69 22 H 139/56 H 100 Mechanical Ventilation 80 11/13/24 04:00 11/13/24 06:15 11/13/24 06:13 11/13/24 06:15 11/13/24 06:15 11/13/24 00:00 11/11/24 04:35 FiO2 30 11/13/24 07:19 Narrative Exam Physical Exam: General: No acute distress,decreased sedation, pt able to nod in response to questions, intubated and mechanically ventilated HEENT: Moist mucous membranes, oropharynx clear Neck: Supple, No masses, No JVD CVS: S1S2 Regular rate and rhythm, No murmurs, rubs or gallops Lungs: Coarse rhonchi and expiratory wheeze throughout the lung field Abd: Soft, NT/ND, +BS, no organomegaly Ext: No edema, pulses are palpable , 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, patent with thrill Skin: No rash Objective Labs 11/13/24 04:30 11/13/24 13:59 Labs: Laboratory Results - last 24 hr 11/12/24 11/13/24 11/13/24 08:21 04:13 04:30 WBC 10.9 D RBC 3.10 L Hgb 9.1 L Hct 27.6 L MCV 89 MCH 29.4 MCHC 33.0 RDW Std Deviation 59.8 H Plt Count 134 L D Neut % (Auto) 79 Lymph % (Auto) 9 L [place] % (Auto) 11 Eos % (Auto) 0 Baso % (Auto) 0 Neut # (Auto) 8.6 H Lymph # (Auto) 1.0 [place] # (Auto) 1.2 H Eos # (Auto) 0.0 Baso # (Auto) 0.0 Immature Gran # (Auto) 0.07 H Absolute Nucleated RBC 0.00 Immature Gran % 1 H Nucleated RBC % 0 Puncture Site Left Brachial ABG pH 7.42 D ABG pCO2 48 ABG pO2 79 L ABG HCO3 31 H ABG O2 Saturation 97 ABG Base Excess 6 H FiO2 21 Sodium 132 L Potassium 5.5 H D 5.6 H Chloride 88 L Carbon Dioxide 29.1 Anion Gap 15 BUN 42 H Creatinine 4.8 H* D Estim Creat Clear Calc 9.8 L eGFR 9 L* BUN/Creatinine Ratio 9 L Glucose 78 Calculated Osmolality 274 L Calcium 8.0 L Corrected Calcium 8.5 Phosphorus 5.8 H Magnesium 1.5 L Total Bilirubin 0.2 L AST 19 ALT < 7 L Alkaline Phosphatase 93 Total Protein 5.0 L Albumin 3.4 Globulin 1.6 L Albumin/Globulin Ratio 2.1 ABG Interpretation ABG results: 11/11/24 11/11/24 11/12/24 04:01 07:38 04:55 ABG pH 7.14 L* 7.37 D 7.26 L D ABG pCO2 71 H* 42 D 44 ABG pO2 116 H 97 95 ABG HCO3 24 24 20 ABG O2 Saturation 97 99 H 98 ABG Base Excess -6 L -1 -7 L 11/13/24 04:13 ABG pH 7.42 D ABG pCO2 48 ABG pO2 79 L ABG HCO3 31 H ABG O2 Saturation 97 ABG Base Excess 6 H Quality Measures Quality Measures none Advance care planning discussed with:: other Assessment & Plan Assessment Current Active Medications: Generic Name Dose Route Start Last Admin Trade Name Freq PRN Reason Stop Dose Admin Acetaminophen 650 mg 11/11/24 05:17 Acetaminophen 325 Mg Tablet PO 12/11/24 05:16 Q6H PRN Fever >100.5 Albuterol/Ipratropium 3 ml 11/11/24 07:00 11/13/24 06:12 Albuterol/Ipratropium (Duoneb) Rt Poonam 3 Ml Nebu INH 12/11/24 06:59 3 ml Q4HRRT RAYO Administration Amiodarone HCl 200 mg 11/11/24 09:00 11/12/24 20:05 Amiodarone Hcl 200 Mg Tablet NG 12/11/24 08:59 200 mg BID RAYO Administration Apixaban 5 mg 11/11/24 09:00 11/11/24 21:41 Apixaban 2.5 Mg Tablet NG 12/11/24 08:59 5 mg BID RAYO Administration Aspirin 81 mg 11/11/24 09:00 11/12/24 11:55 Aspirin 81 Mg Chew NG 12/11/24 08:59 81 mg QDAY RAYO Administration Atorvastatin Calcium 40 mg 11/11/24 21:00 11/12/24 20:05 Atorvastatin Calcium 20 Mg Tablet NG 12/11/24 20:59 40 mg HS RAYO Administration Calcium Carbonate 600 mg 11/11/24 09:00 11/12/24 20:05 Calcium Carbonate 600 Mg Tablet NG 12/11/24 08:59 600 mg BID RAYO Administration Dextrose 25 ml 11/12/24 06:24 Dextrose 50%-Water Inj 50 Ml Syringe IV 12/12/24 06:23 Q15MIN PRN BG 50-70 responsive npo pt Dextrose 50 ml 11/12/24 06:24 Dextrose 50%-Water Inj 50 Ml Syringe IV 12/12/24 06:23 Q15MIN PRN BG <50 OR BG <70 & pt unresponsive Famotidine 20 mg 11/11/24 09:00 11/12/24 08:46 Famotidine Inj 10 Mg/Ml Vial 2 Ml IVP 12/11/24 08:59 20 mg QDAY RAYO Administration Protocol Glucagon 1 mg 11/12/24 06:24 Glucagon Inj 1 Mg Vial IM Q15MIN PRN BG <70, and no IV access Hydralazine HCl 10 mg 11/11/24 05:30 Hydralazine Inj 20 Mg/Ml Vial IVP 12/11/24 05:29 Q6H PRN SBP>180 Fentanyl Citrate 2,500 mcg in 250 mls @ 2.5 mls/hr 11/11/24 04:27 11/13/24 07:00 Sublimaze Inj 2,500 Mcg/250 Ml Bag IV 11/16/24 04:06 75 mcg/hr .Q24H PRN 7.5 mls/hr PER PROTOCOL Titration Protocol 25 MCG/HR Propofol 1,000 mg in 100 mls @ 2.072 mls/hr 11/11/24 04:27 11/13/24 07:00 Diprivan Ivpb IV 12/11/24 03:37 25 mcg/kg/min .Q24H PRN 10.362 mls/hr Per Protocol Titration Protocol 5 MCG/KG/MIN Ceftriaxone Sodium/Dextrose 1 gm in 50 mls @ 100 mls/hr 11/11/24 11:27 11/12/24 12:23 Rocephin/D5w 1gm Iv Premix IV 11/18/24 11:26 Infused QDAY RAYO Infusion Doxycycline Hyclate 100 mg/ 100 mls @ 100 mls/hr 11/11/24 11:30 11/12/24 20:06 Sodium Chloride IV 11/18/24 11:29 100 mls/hr BID RAYO Administration Norepinephrine/Dextrose 8 mg in 250 mls @ 6.476 mls/hr 11/11/24 16:05 11/13/24 07:00 Levophed In D5w 8mg/250ml IV 12/11/24 16:04 0.01 mcg/kg/min .Q24H PRN 1.295 mls/hr PER PROTOCOL Titration Protocol 0.05 MCG/KG/MIN Methylprednisolone Sodium Succinate 60 mg 11/11/24 09:00 11/12/24 11:55 Methylprednisolone Sod Succ 40 Mg Vial IV 11/18/24 08:59 60 mg QDAY RAYO Administration Midodrine 10 mg 11/11/24 22:00 11/13/24 06:08 Midodrine 5 Mg Tablet NG 12/11/24 21:59 10 mg TID RAYO Administration Ondansetron HCl 4 mg 11/11/24 05:17 Ondansetron Inj 2 Mg/Ml Inj 2 Ml IVP 12/11/24 05:16 Q6H PRN NAUSEA OR VOMITING Protocol Pharmacy Consult 1 each 11/11/24 05:27 Pharmacy Renal Dose Adjustment 1 Ea XX 12/11/24 05:26 PRN PRN CONSULT Pharmacy Consult 1 each 11/12/24 11:45 Vancomycin Pharmacy To Dose 1 Each Each IV 12/12/24 11:44 QDAY PRN CONSULT Sevelamer Carbonate 0.8 gm 11/12/24 18:15 11/12/24 18:08 Sevelamer Carbonate 0.8 Gm Packet (Non-Formulary) NG 12/12/24 18:14 0.8 gm TIDWM RAYO Administration Sodium Chloride 3 ml 11/11/24 04:43 Sodium Chloride Rt Poonam 0.9% 3 Ml Nebu INH 12/11/24 04:42 PRN PRN SOLN Plan Mirella Yvette Grewal is a 74-year-old F with a PMH of CHF, coronary artery disease with multiple MIs s/p stents, COPD on 3 L home oxygen, ESRD on hemodialysis, Thursday, Thursday, , Thursday, and A-fib with pacemaker, who was brought in by EMS with a chief complaint of acute SOB. The patient was intubated and admitted to ICU for further management of acute hypoxic hypercapnic respiratory failure secondary to COPD exacerbation. Nephrology consulted for urgent HD, had HD yesterday with improvement in renal panel. Pt remains intubated, with sedation weaned. 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 #Acute hypoxic respiratory failure-intubated #CAP #Possible CHF exacerbation, likely 2/2 volume overload in the setting of ESRD #Pleural Effusion Critically elevated BNP 2005 with elevated troponin I 0.046 Chest x-ray showed moderate congestive heart failure with prominent vascular congestion and perihilar basilar edema Chest CT showed mild heart failure with moderate enlargement of the cardiac contour with small bilateral pleural effusions CXR with Bibasilar pna with singnificant RLL consolidation WBC downtrending 10 from 16 Plan -CARDS consulted -continues on abx as per ICU team #electrolyte abnormalities #Hypocalcemia, likely 2/2 ESRD status (resolved) Admission calcium 7.7, now 8.7 s/p IV calcium gluconate 1000 mg Plan -Continue NG calcium carbonate BID per primary care team -CMP daily replete as indicated - cont valtessa - cont sevelamer #Normocytic anemia, likely 2/2 ESRD status Admission Hgb 11.1 (MCV 96, RDW 63.4) 11/12/24: Hgb dropped to 10.0 -s/p Epoetin 10,000 U x1 Treatment Plan -Monitor H&H, transfuse if Hgb<7 #Other medical problems #Acute encephalopathy likely 2/2 CO2 narcolepsy in the setting of COPD exacerbation #Acute hypoxic hypercapnic respiratory failure likely 2/2 CHF exacerbation vs. COPD exacerbation vs. both #COPD exacerbation #Community-acquired pneumonia #Leukocytosis- downtrending #CAD s/p stents #Hx of A-fib, on Eliquis and s/p pacemaker Plan -Continue management per primary care team Plan discussed with nephrology attending Dr. Danica Bateman MD Internal Medicine PGY-1 Attending Provider Attestation/Addendum Patient seen and examined with resident physician Dr. Bateman. Note reviewed, agree with findings and recommendations. Patient admitted with acute respiratory failure from fluid overload and pneumonia. Currently on ventilator.In ICU. Intubated and sedated renal consultation requested for need for dialysis. Patient did receive dialysis yesterday. Hopefully she can be weaned extubated today. Spoke to ICU team. Next dialysis scheduled for tomorrow Thank you Dr. Merritt for allowing me to participate in the care of Ms. Grewal
[2024-11-13] MEDS: SEVELAMER CARBONATE 0.8 GM PACKET (NON-FORMULARY) NG ×3 (08:22→17:00)
[2024-11-13 08:54] LABS: Vancomycin,Random 23.6 mcg/mL
[2024-11-13] MEDS: Magnesium Sulfate 4 GM Ivpb 4 GM/50 ML BAG IV (09:37)
[2024-11-13] MEDS: METOPROLOL TARTRATE INJ 1 MG/ML AMP 5 ML 5 MG IVP (09:39)
[2024-11-13] MEDS: FUROSEMIDE INJ 10 MG/ML 4ML VIAL 40 MG IVP (09:43)
[2024-11-13] MEDS: ADENOSINE INJ 3 MG/ML VIAL 6 MG IVP (09:49)
[2024-11-13] MEDS: DILTIAZEM INJ 5 MG/ML VIAL 5 ML 10 MG IV (09:49)
[2024-11-13] MEDS: DEXMEDETOMIDINE 400 MCG IVPB 400 MCG/100 ML BAG 23.625 MCG IV ×2 (09:50→20:15)
[2024-11-13] MEDS: MIDAZOLAM INJ 1 MG/ML VIAL 2 ML IVP (09:50)
--- NOTE | 2024-11-13 10:27 | XR_ITS ---
Examination: AP chest single view TECHNIQUE: AP sitting portable chest single view INDICATIONS: SOB today. FINDINGS: Moderate CHF Moderate enlargement cardiac contour with prominent vascular congestion and perihilar edema Significant pneumonia at the lung bases to the right base Left internal jugular central line tip SVC satisfactory position Endotracheal tube tip approximately 5.4 cm above bam. Cardiac leads satisfactory position. Orogastric tube in the stomach satisfactory position Prominent osteopenia IMPRESSION: Moderate CHF Bibasilar pneumonia, significant right base Orogastric tube in satisfactory position
[2024-11-13] MEDS: PATIROMER CALCIUM 8.4 GM PACKET (NON-FORM) PO (11:26)
--- NOTE | 2024-11-13 11:54 | ESPR_ITS ---
Documentation for date of: 11/13/24 Subjective Subjective Interval history: The patient is a 74-year-old female with significant past medical history of CHF, coronary artery disease with multiple MIs s/p stents, COPD on 3 L home oxygen, ESRD on hemodialysis, Thursday, Thursday, , Thursday, A-fib with pacemaker, brought in by EMS with chief complaint of acute SOB. The patient called EMS due to SOB, and she was saturating on 80s at her home. She was given DuoNeb on the way to hospital, and when she presented to ED, her saturation was 84 on high flow CPAP. She was already altered, and was intubated. Further history were unobtainable, as patient was already intubated during my evaluation. In the ED her vitals were significant for a blood pressure of 200/76, pulse 79, RR 20, labs are significant for white count 13.5, RBC 3.88, hemoglobin 11.1, D- dimer 2630, ABG revealed pH of 7.14, pCO2 71, pO2 116, bicarb 24, sodium 135, potassium 4.6, BUN 39, creatinine 6.4, lactic acid 4.1, corrected calcium 7.7, magnesium 2.2, AST/ALT/ALP less than 10, less than 10/05/2027 respectively. Ammonia was 17, troponin 0.046, CRP less than 0.5, BNP 2006, lipid panel revealed LDL 116, lipase 68, TSH 6.61, free T4 0.84. UA revealed orange urine, 2+ protein, 2+ blood, leukocyte Estrace positive, RBC 502, WBC 1255, chest x-ray revealed right lower lobe pneumonia, EKG revealed old MA. The patient received methylprednisone 125 Mg IV x 1, bolus fluid 1 L at the rate 250 cc/h, cefixime 2 g IV x 1, and started on vancomycin. The patient was intubated and admitted to ICU for further management of acute hypoxic hypercapnic respiratory failure secondary to COPD exacerbation. 11/11/2024: Patient is sedated and on mechanical ventilator. Most of the history is taken from the chart review and from the nurse at the bedside. Patient supposedly lives alone and developed shortness of breath, for which she called the EMS. By the time EMS went her home she was severely short of breath for which she was given DuoNebs and was kept on CPAP following which she was brought to the hospital where she was given steroids, sedated and intubated. Later central line was placed. No acute overnight events. Vitals are stable and patient is on propofol and fentanyl drip without any vasopressor support. Started on methylprednisolone 60 Mg IV once daily, ceftriaxone and azithromycin. Repeat ABG after the intubation is within normal limits. Will continue mechanical ventilation for now and monitor the patient. Later in the evening, patient is found to be mildly hypotensive for which low-dose Levophed was started and patient was given a dose of midodrine 10 Mg through orogastric tube. 11/12/2024: Patient is seen and examined at bedside in the ICU. No acute overnight events. Sedated and on mechanical ventilator, VC/AC mode with tidal volume 380, PEEP 5, FiO2 30% and saturating around 95%. Vitals are stable and patient is mildly hypotensive, started on Levophed which was stopped around 7 AM this morning, maintain blood pressures only on minimal doses of Levophed 0.05 mcg/kg/min. Labs done this morning showed mild leukocytosis, sodium 131, potassium 5.5, BUN 61, creatinine 7.9, bicarb 19.2, phosphorus 7.8. ABG showed metabolic acidosis Patient missed her dialysis session yesterday which was started this morning and Levophed is restarted to support the blood pressure during dialysis. Tolerated dialysis well on 2 L of fluid is taken. Patient was changed from VC/AC mode to pressure support mode. Will repeat ABG tomorrow morning and if patient is hemodynamically stable, able to respond after weaning of the sedation, planning to wean her off the mechanical ventilator. 11/13/2024: Patient seen this morning, at a RASS of 0 able to follow commands well, interactive and trying to communicate. Initially plan was to extubate today. Later that morning around 9:40 am patient appeared anxious and went into SVT rate up to 180s with hypoxia in the 70s while on pressure support. Patient was switched back to AC/VC on 100% FiO2. Patient was given metoprolol tartrate 5 mg IV x1, adenosine 6 mg IV x1, furosemide 40 mg IV x1, diltiazem 10 mg IV x1, and midazolam 1 mg IV x1, after which patient had resolution of heart rate and rhythm. Patient was then placed on Precedex drip. Will keep patient sedated overnight and try for extubation tomorrow. Started Veltassa for hyperkalemia, follow up potassium levels. Patient will have dialysis tomorrow. Troponin was repeated in the afternoon which was elevated at 4.088 therefore Plavix loading dose was given 300 mg x1 followed by 75 mg qday and heparin drip was started after discussed with Dr. Escudero. Exam Vital Signs Temp Pulse Resp BP Pulse Ox O2 Del Method O2 Flow Rate 98.8 F 76 23 H 88/45 L 98 Mechanical Ventilation 80 11/13/24 08:00 11/13/24 10:30 11/13/24 10:22 11/13/24 10:30 11/13/24 10:30 11/13/24 08:00 11/11/24 04:35 FiO2 50 11/13/24 11:41 Narrative Exam General: Sedated and Mechanically ventilated. HEENT: Normocephalic, atraumatic, mucous membranes moist. Heart: Regular rate and rhythm, no murmurs. Lungs: Clear to auscultation with no wheezing or crackles. Abdomen: Soft, nondistended, nontender, positive bowel sounds. ?No guarding or rebound tenderness. Neurologic: Sedated and mechanically ventilated. Extremities: No edema. Left AV fistula noted. 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 Skin: No rash or ecchymoses. Objective Labs 11/14/24 05:24 11/14/24 05:24 Labs: Laboratory Results - last 24 hr 11/13/24 11/13/24 11/13/24 04:13 04:30 08:11 WBC 10.9 D RBC 3.10 L Hgb 9.1 L Hct 27.6 L MCV 89 MCH 29.4 MCHC 33.0 RDW Std Deviation 59.8 H Plt Count 134 L D Neut % (Auto) 79 Lymph % (Auto) 9 L Hanson % (Auto) 11 Eos % (Auto) 0 Baso % (Auto) 0 Neut # (Auto) 8.6 H Lymph # (Auto) 1.0 Hanson # (Auto) 1.2 H Eos # (Auto) 0.0 Baso # (Auto) 0.0 Immature Gran # (Auto) 0.07 H Absolute Nucleated RBC 0.00 Immature Gran % 1 H Nucleated RBC % 0 Puncture Site Left Brachial ABG pH 7.42 D ABG pCO2 48 ABG pO2 79 L ABG HCO3 31 H ABG O2 Saturation 97 ABG Base Excess 6 H FiO2 21 Sodium 132 L Potassium 5.6 H Chloride 88 L Carbon Dioxide 29.1 Anion Gap 15 BUN 42 H Creatinine 4.8 H* D Estim Creat Clear Calc 9.8 L eGFR 9 L* BUN/Creatinine Ratio 9 L Glucose 78 Calculated Osmolality 274 L Calcium 8.0 L Corrected Calcium 8.5 Phosphorus 5.8 H Magnesium 1.5 L Total Bilirubin 0.2 L AST 19 ALT < 7 L Alkaline Phosphatase 93 Total Protein 5.0 L Albumin 3.4 Globulin 1.6 L Albumin/Globulin Ratio 2.1 Random Vancomycin 23.6 ABG Interpretation ABG results: 11/11/24 11/11/24 11/12/24 04:01 07:38 04:55 ABG pH 7.14 L* 7.37 D 7.26 L D ABG pCO2 71 H* 42 D 44 ABG pO2 116 H 97 95 ABG HCO3 24 24 20 ABG O2 Saturation 97 99 H 98 ABG Base Excess -6 L -1 -7 L 11/13/24 04:13 ABG pH 7.42 D ABG pCO2 48 ABG pO2 79 L ABG HCO3 31 H ABG O2 Saturation 97 ABG Base Excess 6 H Quality Measures Quality Measures none Advance care planning discussed with:: patient Assessment & Plan Assessment Current Active Medications: Generic Name Dose Route Start Last Admin Trade Name Freq PRN Reason Stop Dose Admin Acetaminophen 650 mg 11/11/24 05:17 Acetaminophen 325 Mg Tablet PO 12/11/24 05:16 Q6H PRN Fever >100.5 Albuterol/Ipratropium 3 ml 11/11/24 07:00 11/13/24 10:21 Albuterol/Ipratropium (Duoneb) Rt Poonam 3 Ml Nebu INH 12/11/24 06:59 3 ml Q4HRRT RAYO Administration Amiodarone HCl 200 mg 11/11/24 09:00 11/13/24 08:08 Amiodarone Hcl 200 Mg Tablet NG 12/11/24 08:59 200 mg BID RAYO Administration Apixaban 5 mg 11/11/24 09:00 11/11/24 21:41 Apixaban 2.5 Mg Tablet NG 12/11/24 08:59 5 mg BID RAYO Administration Aspirin 81 mg 11/11/24 09:00 11/13/24 08:09 Aspirin 81 Mg Chew NG 12/11/24 08:59 81 mg QDAY RAYO Administration Atorvastatin Calcium 40 mg 11/11/24 21:00 11/12/24 20:05 Atorvastatin Calcium 20 Mg Tablet NG 12/11/24 20:59 40 mg HS RAYO Administration Calcium Carbonate 600 mg 11/11/24 09:00 11/13/24 08:13 Calcium Carbonate 600 Mg Tablet NG 12/11/24 08:59 600 mg BID RAYO Administration Dextrose 25 ml 11/12/24 06:24 Dextrose 50%-Water Inj 50 Ml Syringe IV 12/12/24 06:23 Q15MIN PRN BG 50-70 responsive npo pt Dextrose 50 ml 11/12/24 06:24 Dextrose 50%-Water Inj 50 Ml Syringe IV 12/12/24 06:23 Q15MIN PRN BG <50 OR BG <70 & pt unresponsive Famotidine 20 mg 11/11/24 09:00 11/13/24 08:12 Famotidine Inj 10 Mg/Ml Vial 2 Ml IVP 12/11/24 08:59 20 mg QDAY RAYO Administration Protocol Glucagon 1 mg 11/12/24 06:24 Glucagon Inj 1 Mg Vial IM Q15MIN PRN BG <70, and no IV access Hydralazine HCl 10 mg 11/11/24 05:30 Hydralazine Inj 20 Mg/Ml Vial IVP 12/11/24 05:29 Q6H PRN SBP>180 Fentanyl Citrate 2,500 mcg in 250 mls @ 2.5 mls/hr 11/11/24 04:27 11/13/24 08:48 Sublimaze Inj 2,500 Mcg/250 Ml Bag IV 11/16/24 04:06 0 mcg/hr .Q24H PRN 0 mls/hr PER PROTOCOL Titration Protocol 25 MCG/HR Propofol 1,000 mg in 100 mls @ 2.072 mls/hr 11/11/24 04:27 11/13/24 08:48 Diprivan Ivpb IV 12/11/24 03:37 0 mcg/kg/min .Q24H PRN 0 mls/hr Per Protocol Titration Protocol 5 MCG/KG/MIN Ceftriaxone Sodium/Dextrose 1 gm in 50 mls @ 100 mls/hr 11/11/24 11:27 11/13/24 08:10 Rocephin/D5w 1gm Iv Premix IV 11/18/24 11:26 100 mls/hr QDAY RAYO Administration Norepinephrine/Dextrose 8 mg in 250 mls @ 6.476 mls/hr 11/11/24 16:05 11/13/24 11:31 Levophed In D5w 8mg/250ml IV 12/11/24 16:04 0.01 mcg/kg/min .Q24H PRN 1.295 mls/hr PER PROTOCOL Titration Protocol 0.05 MCG/KG/MIN Magnesium Sulfate 4 gm in 50 mls @ 12.5 mls/hr 11/13/24 09:33 11/13/24 09:37 Magnesium Sulfate Ivpb IV 11/13/24 13:32 12.5 mls/hr X1 ONE Administration Dexmedetomidine/Sodium Chloride 400 mcg in 100 mls @ 3.375 mls/hr 11/13/24 09:53 11/13/24 11:42 Precedex Ivpb IV 12/13/24 09:42 1 mcg/kg/hr .Q24H PRN 16.875 mls/hr Per PROTOCOL Titration Protocol 0.2 MCG/KG/HR Methylprednisolone Sodium Succinate 60 mg 11/11/24 09:00 11/13/24 08:08 Methylprednisolone Sod Succ 40 Mg Vial IV 11/18/24 08:59 60 mg QDAY RAYO Administration Midodrine 10 mg 11/11/24 22:00 11/13/24 06:08 Midodrine 5 Mg Tablet NG 12/11/24 21:59 10 mg TID RAYO Administration Ondansetron HCl 4 mg 11/11/24 05:17 Ondansetron Inj 2 Mg/Ml Inj 2 Ml IVP 12/11/24 05:16 Q6H PRN NAUSEA OR VOMITING Protocol Patiromer 8.4 gm 11/13/24 10:45 11/13/24 11:26 Patiromer Calcium 8.4 Gm Packet (Non-Form) PO 12/13/24 10:44 8.4 gm DAILY RAYO Administration Pharmacy Consult 1 each 11/11/24 05:27 Pharmacy Renal Dose Adjustment 1 Ea XX 12/11/24 05:26 PRN PRN CONSULT Sevelamer Carbonate 0.8 gm 11/12/24 18:15 11/13/24 11:26 Sevelamer Carbonate 0.8 Gm Packet (Non-Formulary) NG 12/12/24 18:14 0.8 gm TIDWM RAYO Administration Sodium Chloride 3 ml 11/11/24 04:43 Sodium Chloride Rt Poonam 0.9% 3 Ml Nebu INH 12/11/24 04:42 PRN PRN SOLN Plan The patient is a 74-year-old female with significant past medical history of CHF, coronary artery disease with multiple MIs s/p stents, COPD on 3 L home oxygen, ESRD on hemodialysis, Thursday, Thursday, , Thursday, A-fib with pacemaker, brought in by EMS with chief complaint of acute SOB. The patient was intubated and admitted to ICU for further management of acute hypoxic hypercapnic respiratory failure secondary to COPD exacerbation. Neuro: #Acute encephalopathy Differential diagnosis: CO2 narcosis versus sedation metabolic versus hypertensive encephalopathy. - CO2 narcosis: Likely as patient had history of COPD [on 3 L of oxygen at home], brought to the hospital with chief complaints of shortness of breath and noted to have severe wheeze for which she was given DuoNebs by the EMS and was kept on CPAP during admit to the hospital. - Sedation: Patient is currently on propofol and fentanyl, which could be the cause of encephalopathy for now as patient ABG significantly improved. - Metabolic: Patient had history of ESRD on HD, unsure of last dialysis session but per her deputy commissioner, Dr. Mishra she is getting dialysis 4 times in a week -Hypertensive encephalopathy: Blood pressure at the time of admission is 200/76 mmHg, unlikely as patient is having hypoxia and hypercapnia at the time of presentation and noted to have wheeze at the time of presentation Diagnostic test: - ABG at the time of admission showed pH 7.14, pCO2 71, PaO2 116, bicarb 24, oxygen saturation 97. - Chest x-ray showed cardiomegaly, infiltrates more on the right basilar area. - Labs showed WBC 13.5 - Tested negative for influenza A and B, COVID-19 Plan - Started on methylprednisolone 60 Mg IV daily - Started on ceftriaxone and doxycycline [11/11-in view of suspected pneumonia in the setting of exacerbation - Patient is currently on mechanical ventilator, VC/AC mode tidal volume 380, respiratory rate 22, PEEP 5, FiO2 30% - Currently patient is on mechanical ventilator with sedation, distention heard from VC/AC mode to pressure support. Will wean her off sedation tomorrow after repeating the blood gas and chest x-ray and will try to extubate her if patient is hemodynamically stable CVS: # CAD s/p multiple stents # S/p pacemaker # HFrEF, EF 45% in 2023 - Though patient presented with acute SOB, was found to have BNP 2000, no JVD or peripheral edema noted - EKG showed paced rhythm with ST elevation in 1, aVL and reciprocal depressions in 2, 3 and aVF suggestive of old MA Plan - Low-sodium diet - Fluid restriction to 1500 cc daily - Talked to therapy administrative assistant, Dr. Escudero about the EKG findings and he recommended that ST elevations are from old MA and does not require any acute interventions as of now #Episode of SVT 11/13/2024 Patient was given adenosine 6 mg IV x1, metoprolol 5 mg IV x1, diltiazem 10 mg IV x1 with conversion - Continuous telemetry - Keep sedated overnight - Consider beta juan luis # History of atrial fibrillation Patient never had documented episodes of atrial fibrillation but on pacemaker tracing, noted to have atrial fibrillation for which patient was started on amiodarone and Eliquis - Resumed her home amiodarone 200 Mg twice daily - Stopped Eliquis 5 mg twice daily for heparin drip # NSTEMI, likely type II versus type 1 Troponin is mildly elevated at the time of admission, 0.046 uptrended to 4.000 Though EKG showed changes of ST elevation, they are likely from the old MA - Will continue telemetry monitoring - Started heparin drip - Loading dose Plavix given 300 mg x1 - Start Plavix 75 mg qday - Following with Cardiology Pulmonology: #Acute hypoxic hypercapnic respiratory failure 05/08 #COPD exacerbation Likely in the setting of worsening disease or superimposed bacterial infection Diagnostic test: - Tested negative for influenza A, B and COVID-19 - ABG at the time of admission showed pH 7.14, pCO2 71, PaO2 116, bicarb 24, oxygen saturation 97. - Chest x-ray showed cardiomegaly, infiltrates more on the right basilar area. - Labs showed WBC 13.5 - Tested negative for influenza A and B, COVID-19 - Blood culture and ET secretions culture pending Treatment: - Patient is sedated, intubated and mechanically ventilated - Received methylprednisolone 125 Mg IV x 1 in the ED - Started on methylprednisolone 60 Mg IV daily - Nebulizations every fourth of every, DuoNebs - Will do repeat ABG as needed and try to wean her off the ventilator based on hemodynamic status and her ABG GI: - No active problems Renal: #Hyperkalemia K continues to be 5.5 -Started on Veltassa -Given kayexylate 30 gm x1 #Combined respiratory and metabolic acidosis #ESRD on HD -Patient is having 4 dialysis sessions per week At the time of admission, pH of 7.14, pCO2 71, lactic acid 4.1 Plan -Catering Attendant Dr. Mishra consulted, appreciate recommendations -Received HD session today and 2 L of fluid is taken - Will need HD as per her routine schedule - Will avoid nephrotoxic medications and renally dose medications #Hypocalcemia Presented with calcium of 7.7 - Started on calcium carbonate 600 Mg twice daily via NG tube Hematology: #Leukocytosis Reactive versus steroid versus infective Secondary to pneumonia and COPD exacerbation - Continue to treat underlying cause #Normocytic anemia DDx: Inflammatory anemia due to chronic kidney disease, versus nutritional deficiency versus malabsorption - Workup as an outpatient basis ID: #Suspected community-acquired pneumonia - Antibiotic therapy treatment as above -Pending blood culture and ET secretion culture Health maintenance: Dispo: ICU for further management of acute hypoxic hypercapnic respiratory failure secondary to COPD exacerbation Diet: Tube feeds through OG tube Lines: Left IJ central line, peripheral lines DVT prophylaxis: Eliquis 5 Mg twice daily CODE STATUS: Full code Patient plan of care was discussed with the arm maker, Dr. Merritt. Tricia Espinal, PGY-3 Attending Provider Attestation/Addendum pt seen and examined with resident team, agree with above. in brief this is a 74yo F admitted to the ICU with acute resp failure s/p intubation. sedation vacation given and SBT done. pt with low vent requirements however became anxious. When she became anxious she developed SVT to the 180s 190s. Pads were placed and she was connected to a monitor. She was given adenosine, metoprolol and diltiazem. She developed flash pulmonary edema with frothy pink sputum in the ETT. plans for extubation were abandoned and pt placed back on sedation. She was given ativan and haldol for acute anxiety and started on precedex gtt. Her trops came back at 4 in the afternoon and this was d/w cardiology. She was started on heparin, ASA, plavix and is already on a statin. An echo was ordered and an EKG obtained. d/w cardiology and they feel she may have some underlying ischemia however she refused a cath 2 months ago. will reeval the possibility of extubation and SBT tmw. case d/w ICU team and cardiology labs, imaging, records reviewed ~ 55ccmin required for eval, exam, review, intervention, discussion and formulation of POC for this critically ill pt with resp failure and SVT at high risk for further and ongoing decompensation.
[2024-11-13 14:54] LABS: Potassium 5.7 mMol/L (3.4-5.1)
[2024-11-13 14:55] LABS: Troponin I 4.088 ng/mL (0.0-0.045)
[2024-11-13] MEDS: DEXMEDETOMIDINE 400 MCG IVPB 400 MCG/100 ML BAG 16.875 MCG IV (15:03)
--- NOTE | 2024-11-13 15:03 | EKG_ITS ---
[facility] Test Date: 2024-11-13 Pat Name: REILLY GRADY Department: Room: S253-A Gender: Female Unishear Operator: BELINDA : 1950 Requested By: Roberta Greer Order Number: [id number] Reading MD: Roberta Greer Measurements Intervals Presho Rate: 96 P: OR: QRS: 10 QRSD: 125 T: 161 QT: 397 QTc: 503 Interpretive Statements ATRIAL FIBRILLATION WITH ABERRANT CONDUCTION OR VENTRICULAR PREMATURE COMPLEXES MODERATE INTRAVENTRICULAR CONDUCTION DELAY ST DEVIATION AND MARKED T-WAVE ABNORMALITY, CONSIDER LATERAL ISCHEMIA Compared to ECG 11/11/2024 06:54:00 Ventricular premature complex(es) now present Aberrant conduction of supraventricular beat(s) now present Intraventricular conduction delay now present T-wave abnormality now present Possible ischemia now present Atrial-paced complex(es) or rhythm no longer present Left ventricular hypertrophy no longer present ST (T wave) deviation no longer present Myocardial infarct finding no longer present /store/S0/[id number].pdf
--- NOTE | 2024-11-13 15:06 | ECHO_ITS ---
Transthoracic Echo Report Ht (in): 60 Wt (lb): 148 Exam Location: Echo Lab Status: Inpatient Equity Research Analyst: Dena Coley Indications: Procedure Performed: BP: 163 / 82 HR: 63 MEASUREMENTS (Male / Female) Normal Values 2D ECHO LV Diastolic Diameter PLAX 6.0 cm 4.2 - 5.9 / 3.9 - 5.3 cm LV Systolic Diameter PLAX 4.9 cm IVS Diastolic Thickness 1.6 cm 0.6 - 1.0 / 0.6 - 0.9 cm LVPW Diastolic Thickness 1.2 cm 0.6 - 1.0 / 0.6 - 0.9 cm LV Relative Wall Thickness 0.5 LVOT Diameter 1.9 cm LV Ejection Fraction MOD BP 31.2 % >= 55 % LV Cardiac Index MOD BP 2321.9 cm?/min?m? LV Ejection Fraction MOD 4C 18.5 % LV Cardiac Index MOD 4C 1400.5 cm?/min?m? LV Ejection Fraction 4C AL 16.4 % LV Cardiac Index 4C AL 1274.9 cm?/min?m? LV Ejection Fraction MOD 2C 47.0 % LV Cardiac Index MOD 2C 3464.5 cm?/min?m? LV Ejection Fraction 2C AL 49.0 % LV Cardiac Index 2C AL 3731.9 cm?/min?m? LA Volume Index 111.9 cm?/m? 16 - 28 cm?/m? Ascending Aorta Diameter 2.9 cm M-MODE AV Cusp Separation MM 1.7 cm DOPPLER AV Peak Velocity 179.0 cm/s AV Peak Gradient 12.8 mmHg AV Mean Gradient 6.0 mmHg AV Velocity Time Integral 35.9 cm LVOT Peak Velocity 168.0 cm/s LVOT Peak Gradient 11.3 mmHg LVOT Velocity Time Integral 38.4 cm LVOT Cardiac Index 4012.7 cm?/min?m? AV Area Cont Eq vti 3.0 cm? AV Area Cont Eq pk 2.7 cm? MV Peak Velocity 237.0 cm/s MV Peak Gradient 22.5 mmHg MV Mean Velocity 120.0 cm/s MV Mean Gradient 8.0 mmHg MV Area PHT 4.2 cm? Mitral E Point Velocity 188.7 cm/s Mitral A Point Velocity 89.4 cm/s Mitral E to A Ratio 2.1 LV E' Lateral Velocity 2.6 cm/s Mitral E to LV E' Lateral Ratio 71.7 TV Peak Velocity 287.5 cm/s TR Peak Velocity 245.0 cm/s TR Peak Gradient 24.0 mmHg PV Peak Velocity 83.4 cm/s PV Peak Gradient 2.8 mmHg FINDINGS Left Ventricle Mild LV dilatation. Mild hypokinesis basal septal and inferior wall. Right ventricle global systolic funtion is severely reduced. Mild LVH. The ejection fraction is visually estimated at 35 %. Right Ventricle The right ventricle is normal in size and systolic function. The estimated right ventricular systolic pressure, 44 mmHg. RAP 3. Pace wire present. Left Atrium The left atrium is severely dilated. Right Atrium The right atrium is normal by two-dimensional imaging, color flow and Doppler imaging with no structural abnormalities, no thrombus formation present. Atrial Septum The interatrial septum appears normal with no evidence of a shunt. Aorta The aorta is normal by two-dimensional, color flow and Doppler interrogation. Mitral Valve The mitral valve is severely MAC. There is decreased mobility on the posterior leaflet. Moderate to severe stenosis, mean gradient 12mmHg. There is mild mitral valve regurgitation. Aortic Valve The aortic valve is trileaflet. Mild sclerosis without stenosis.There is trace aortic regurgitation. Tricuspid Valve The tricuspid valve is normal by two-dimensional, color flow and Doppler interrogation. There is mild tricuspid valve regurgitation. Pulmonic Valve Trivial pulmonic valve regurgitation. Vessels The pulmonary artery appears normal. The inferior vena cava pulmonary and hepatic veins appear normal. Pericardium The pericardium is normal by two-dimensional imaging. There is no significant pericardial effusion. CONCLUSIONS Indication:NSTEMI Aortic root is normal in dimension. Aortic valve leaflets show heavy calcification thickening no significant stenosis. There is heavy mitral annulus calcification with evidence of moderate mitral stenosis. Mean gradient of 12 mmHg. Mitral apparatus also showed heavy calcification. There is evidence of mild to moderate mitral regurgitation. Left atrium is markedly dilated. Left ventricle demonstrates normal with evidence of mild concentric LVH with echogenic appearance with evidence of severe inferior wall posterior wall akinesis and severe global hypokinesis ejection fraction 30%. Right atrium is normal in dimension. Right ventricle is normal in size with normal right ventricle wall motion. Normal RV function. Pacemaker cables are seen in the right ventricle. Moderate tricuspid valve regurgitation with evidence of normal PA pressure estimated PA systolic pressure 40 mmHg Mild pulmonic regurgitation Mildly dilated inferior vena cava Findings are consistent with ischemic cardiomyopathy severe LV dysfunction heavy mitral annulus calcification calcification mitral apparatus with moderate to severe mitral stenosis and mild mitral regurgitation. No evidence of significant pulmonary hypertension. Bibi Luo (Electronically Signed) Final Date: 14 November 2024 17:52
[2024-11-13] MEDS: CLOPIDOGREL BISULFATE 75 MG TABLET 300 MG PO (15:40)
[2024-11-13 16:33] LABS: Partial Thromboplastin Time 25.1 Seconds (22.0-36.0)
[2024-11-13] MEDS: HEPARIN SOD INJ 5000 UNIT/ML VIAL 4000 UNIT IV (16:58)
[2024-11-13] MEDS: Heparin/D5w 25K 250 ML Ivpb 25,000 UNIT/250 ML BAG 8.1 UNIT IV (17:00)
--- NOTE | 2024-11-13 19:03 | ESPR_ITS ---
RE: REILLY GRADY : 1950 DATE OF SERVICE: 11/13/2024 SUBJECTIVE: The patient is a 74-year-old lady with a past medical history of CAD status post with most recent right coronary artery stent placement, hospitalized in 09/2024, transferred to [facility] with ST-elevation type of myocardial infarction, persistent elevation, present for several days. The patient had troponin elevation up to 3 at that time, acute pulmonary edema, intubated and subsequently extubated. The patient was recommended a coronary angiogram, she refused and discharged home with medical management, now 2 months later, she came back with same picture, sudden onset of acute pulmonary edema, shortness of breath, acute hypoxic respiratory failure. The patient could not be extubated today because she went back into pulmonary edema, pink frothy sputum, was diuresed, still on ventilator, requiring 50% FIO2, critical condition, intubated with mechanical ventilation, on sedative. She did have an acute non-ST segment elevation myocardial infarction. Troponin has gone up significantly from admission of 0.04 up to now 4.08 this morning. The patient clearly has ongoing ischemic symptoms. Her EKG showed evidence of persistent ST segment elevations, still III AVF and marked ST depression in V4 to V6. She clearly has ischemia going on causing a lot of acute decompensated heart failure, difficult to explain. She is a patient with dialysis, underwent dialysis yesterday. She will have dialysis again tomorrow. X-ray continued to show evidence of extensive lung disease and COPD as well as cardiomegaly and pulmonary congestion. PHYSICAL EXAMINATION: General: She is intubated mechanically. Vital Signs: The patient has a blood pressure of 125/67, pulse 76, atrial fibrillation, respirations 18, temperature normal. Neck: Supple. No JVD. Lungs: Decreased breath sounds at the bases. Heart: Heart S1, S2, irregular. Abdomen: Thin. Extremities: Normal. /Rectal: Not performed. Skin: Unremarkable. Echocardiogram showed she appears to be today in underlying atrial fibrillation with intermittent pacemaker rhythm. The patient was in sinus rhythm earlier. IMPRESSION: 1. Acute hypoxic respiratory failure secondary to chronic obstructive lung disease and acute decompensated congestive heart failure, flash pulmonary edema requiring mechanical ventilation. 2. Acute non-ST segment elevation myocardial infarction with persistent ST segment changes, chronically elevated due to left ventricular inferobasal and posterobasal aneurysm. 3. Coronary artery disease status post multivessel stent placement. 4. End-stage renal disease on hemodialysis. 5. Severe chronic obstructive lung disease. 6. Paroxysmal atrial fibrillation. RECOMMENDATIONS: Continue ventilator management. Once the patient is extubated, I will discuss about doing coronary angiogram. Continue amiodarone 200 mg twice daily by NG tube and also atorvastatin. Plavix was given 300 mg loading dose and 75 mg daily from tomorrow. Eliquis has been held. Heparin drip will be continued for acute myocardial infarction. If she does develop tachycardia, might use diltiazem to control the heart rate. Also being continued on methylprednisolone 60 mg daily for acute hypoxic respiratory failure secondary to combination of volume overload and flash pulmonary edema and COPD. Condition is critical. Prognosis is guarded. We will continue to monitor the patient's status with dairy technician, Dr. Merritt. DT: 18:13:18 TT: 19:02:00 Ref: [id number] - TID: [id number]
[2024-11-13] MEDS: DEXTROSE 50%-WATER INJ 50 ML SYRINGE IVP (20:46)
[2024-11-13] MEDS: INSULIN HUM REGULAR 1 UNIT/0.01 ML (PER UNIT) 5 UNIT IV (20:47)
[2024-11-13] MEDS: ATORVASTATIN CALCIUM 20 MG TABLET 40 MG NG (21:00)
[2024-11-13 23:31] LABS: Partial Thromboplastin Time 65.4 Seconds (22.0-36.0)
[2024-11-14] VITALS (85 sets, daily range): BP systolic 94–185; BP diastolic 49–108; PULSE 64–218; RESP 5–26; TEMP 36–36.5; O2SAT 87–100
[2024-11-14] MEDS: DEXMEDETOMIDINE 400 MCG IVPB 400 MCG/100 ML BAG 23.625 MCG IV ×5 (01:00→19:27)
[2024-11-14 01:21] LABS: Potassium 5.5 mMol/L (3.4-5.1)
[2024-11-14] MEDS: ALBUTEROL/IPRATROPIUM (Duoneb) RT SOL 3 ML NEBU INH ×6 (02:54→22:00)
[2024-11-14 04:50] LABS: Base Excess 4 (-3-3); HCO3 29 mEq/L (20-26); Inspired Oxygen, FIO2 40 %; O2 Saturation 99 % (91-98); PCO2 40 mmHg (32.0-48.0); PO2 106 mmHg (83-108); pH, Arterial 7.46 (7.35-7.45)
[2024-11-14 04:55] LABS: Puncture Site Right Brachial
[2024-11-14 04:56] LABS: Allen Test Performed/OK
[2024-11-14 07:00] LABS: Basophils # (Auto) 0.0 Thou/mm3 (0.0-0.2); Basophils % (Auto) 0 % (0-2.5); Eosinophils # (Auto) 0.0 Thou/mm3 (0.0-0.5); Eosinophils % (Auto) 0 % (0-10); Hematocrit 28.1 % (36.0-46.0); Hemoglobin 9.5 g/dL (12.0-16.0); Immature Granulocytes Auto 0.04 Thou/mm3 (0.00-0.00); Lymphocytes # (Auto) 1.0 Thou/mm3 (1.0-4.8); Lymphocytes % (Auto) 12 % (10-50); Mean Corpuscular HGB Conc 33.8 g/dl (31.0-37.0); Mean Corpuscular Hemoglobin 29.5 pg (25.0-35.0); Mean Corpuscular Volume 87 fL (80-100); Monocytes # (Auto) 1.0 Thou/mm3 (0.0-0.8); Monocytes % (Auto) 12 % (0-12); Neutrophils # (Auto) 6.7 Thou/mm3 (1.8-7.7); Neutrophils % (Auto) 76 % (37-80); Nucleated Red Blood Cell # 0.00 Thou/mm3 (0.00-0.00); Nucleated Red Blood Cell % 0 /100 WBC (0); Platelet Count 106 Thou/mm3 (140-440); RDW Standard Deviation 57.3 fL (36.4-46.3); Red Blood Count 3.22 Miln/mm3 (4.00-5.20); White Blood Count 8.8 Thou/mm3 (3.6-11.0)
[2024-11-14 07:40] LABS: Alanine Aminotransferase < 7 U/L (10-49); Albumin, Serum 3.4 gm/dL (3.4-4.8); Albumin/Globulin Ratio 1.9 (1.2-2.2); Alkaline Phosphatase 89 U/L (46-116); Anion Gap 15 (7-16); Aspartate Amino Transferase 19 U/L (0-34); BUN/Creatinine Ratio 9 Ratio (12-20); Bilirubin,Total 0.3 mg/dL (0.3-1.2); Blood Urea Nitrogen 52 mg/dL (9-23); Calcium 8.0 mg/dL (8.3-10.6); Calcium (Corrected) 8.5 mg/dL (8.5-10.1); Carbon Dioxide 27.9 mMol/L (20.0-31.0); Chloride 87 mMol/L (98-107); Creatinine (Component) 5.9 mg/dL (0.6-1.3); Estimated Creatinine Clearance 7.9 mL/min (>60); Globulin 1.8 gm/dL (2.3-3.5); Glucose 101 mg/dL (74-106); Magnesium 2.3 mg/dL (1.6-2.6); Osmolality,Calculated 274 (275-295); Partial Thromboplastin Time 54.2 Seconds (22.0-36.0); Phosphorous 7.4 mg/dL (2.4-5.1); Potassium 5.0 mMol/L (3.4-5.1); Sodium 130 mMol/L (136-145); Total Protein 5.2 gm/dL (5.7-8.2); Vancomycin,Random 20.3 mcg/mL; eGFR 7 See Note
[2024-11-14] MEDS: SEVELAMER CARBONATE 0.8 GM PACKET (NON-FORMULARY) NG ×3 (08:21→16:48)
[2024-11-14] MEDS: CALCIUM CARBONATE 600 MG TABLET NG ×2 (08:24→20:01)
--- NOTE | 2024-11-14 08:52 | PD.RESPRO ---
Documentation for date of: 11/14/24 Subjective Subjective Interval history: Reason for consult: ESRD, acute respiratory failure, need for dialysis History of present illness: Mirella Grewal is a 74-year-old F with a PMH of CHF, coronary artery disease with multiple MIs s/p stents, COPD on 3 L home oxygen, ESRD on hemodialysis, Thursday, Thursday, , Thursday, and A-fib with pacemaker, who was brought in by EMS with a chief complaint of acute SOB. Per Internal Medicine team note, the patient called EMS due to SOB, and was saturating around 80% at home. She was given DuoNebs on the way to hospital and, when she presented to the ED, was saturating at 84% on high-flow CPAP. At this point, she was already altered, and was intubated. Internal Medicine team could not obtain further history due to patient already being intubated during their evaluation. Of note, patient has multiple prior hospitalizations for similar presentations of acute hypoxic respiratory failure including in November 2023 and September 2023. In the ED, vitals showed: BP 200/76 HR 79 RR 20 Temp 98.6 SpO2 84% on high flow CPAP, ED Course: CBC showed high WBC 13.5, and low Hgb 11.1 (MCV 96, RDW 63.4). Coagulation panel showed critically elevated D-dimer 2630 but was otherwise within normal limits. ABG showed normal pH 7.37, normal pCO2 42, normal PO2 97, and normal HCO3 24. CMP showed high BUN 39, critically elevated creatinine 6.4, critically low EGFR 6, high lactic acid 4.1, high blood glucose 184, low corrected calcium 7.7, critically elevated troponin I 0.046, critically elevated BNP 2006, high TSH 6.61, and low free T4 0.84. UA showed turbid orange urine with a basic pH of 8.0. It also showed 2+ urine protein, 2+ urine blood, high urine RBC 502, high urine WBC 1255, high urine squamous epithelial cells 29, but no urine bacteria. UDS was negative. Rapid RSV was negative. Imaging: Chest x-ray showed moderate congestive heart failure with prominent vascular congestion and perihilar basilar edema. Head CT was unremarkable. Chest CT showed bilateral thyroid nodules, mild heart failure with moderate enlargement of the cardiac contour, bibasilar pneumonia, numerous bilateral positioned metastatic pulmonary nodules, small bilateral pleural effusions, and cholelithiasis. EKG showed old MT. In the ED, patient was received methylprednisone 125 Mg IV x 1, bolus fluid 1 L at the rate 250 cc/h, cefixime 2 g IV x 1, and was started on vancomycin. The patient was intubated and admitted to ICU for further management of acute hypoxic hypercapnic respiratory failure secondary to COPD exacerbation. We, the nephrology team, were consulted for the patient's combined respiratory and metabolic acidosis and need for urgent hemodialysis due to ESRD status. Cardiology is also following. Interval History 11/12/2024: No overnight events. Patient seen and examined at bedside; she remains intubated and unable to respond to questioning. Patient could not receive hemodialysis yesterday due to being unable to be moved up to ICU. WBC increased from 13.5 to 16.5 and Hgb decreased from 11.1 to 10.0. Other notable worsening labs include Na 131, K 6.8, anion gap 18, BUN increased from 39 to 61, creatinine increased from 6.4 to 7.9, phosphorus 7.8, and troponins uptrended from 0.089 to 0.587. CXR shows new significant bibasilar pneumonia. Hemodialysis for 3.5 hours planned for today. 11/13/2024: Patient seen and examined at bedside in ICU. she remains intubated, however sedation has been decreased. 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 K 5.6 from 6.8, BUN 42 from 61, Cr 4.8 from 7.9. WBC downtrending 10 from 16. BP 107/42, CXR with bibasilar pna, significant RLL consolidation. continues on CTX 1 gm. NO HD today. 11/14/2024: No overnight events. Patient seen and examined at bedside. She is no longer intubated but is only able to mouth words without making any sounds, making it difficult to ask her how she is doing or if she has any new complaints. Labs showed Hgb 9.5, Plt Count 106, APTT 54.2, ABG pH 7.46, Na 130, K 5.0, Cl 87, BUN 52, creatinine 5.9, eGFR 7, corrected Ca 8.5, Phos 7.4, and troponin I 3.023 (downtrending). EKG showed atrial fibrillation with aberrant conduction or VPCs, moderate intraventricular conduction delay, and ST deviation with marked T-wave abnormality (possible lateral ischemia but cardiology believes it is old). Patient continues to receive IV Rocephin for her pneumonia with right lower lobe consolidation seen on 11/13 CXR. An echocardiogram and repeat CXR have been ordered. Patient will be given Epogen and will be receiving HD today. Exam Vital Signs Temp Pulse Resp BP Pulse Ox O2 Del Method O2 Flow Rate 97.7 F 78 20 130/108 H 100 Room Air 80 11/14/24 08:22 11/14/24 08:22 11/14/24 08:22 11/14/24 08:22 11/14/24 08:22 11/13/24 18:18 11/11/24 04:35 FiO2 40 11/14/24 08:22 Narrative Exam Physical Exam: General: No longer intubated. Unable to assess A&O status due to patient's inability to speak, no acute distress. Skin: Warm, dry, intact, no obvious rash. Head: Normocephalic, atraumatic. Eyes: PERRL, EOMI. Anicteric, vision grossly intact. Ears: No ear pain, no ear discharge, Hearing grossly intact. Nose: No nasal discharge. Mouth/Throat: Oral mucosa moist. No obvious lesions in oropharynx. Neck: Neck supple, non-tender, no cervical lymphadenopathy. Cardiovascular: Regular rate and rhythm, no murmur, no JVD or carotid bruits. +S1/S2. Respiratory: Decreased breath sounds at the base. No crackles, no wheezing. No accessory muscle use. Gastrointestinal: Soft, nontender, non-distended, no palpable masses. No guarding or rebound tenderness. Peristalsis present. Extremities: Symmetrical, no significant deformities. No edema, no cyanosis, no clubbing. 2+ radial pulse bilaterally, 2+ posterior tibial pulse bilaterally. Neuro: No focal deficits observed. Moving all extremities. No overt cerebellar signs/incoordination. Psychiatric: Cooperative, appropriate affect. Objective Labs 11/14/24 05:24 11/14/24 05:24 Labs: Laboratory Results - last 24 hr 11/13/24 11/13/24 11/13/24 08:11 13:59 15:29 WBC RBC Hgb Hct MCV MCH MCHC RDW Std Deviation Plt Count Neut % (Auto) Lymph % (Auto) [place] % (Auto) Eos % (Auto) Baso % (Auto) Neut # (Auto) Lymph # (Auto) [place] # (Auto) Eos # (Auto) Baso # (Auto) Immature Gran # (Auto) Absolute Nucleated RBC Immature Gran % Nucleated RBC % APTT 25.1 Puncture Site ABG pH ABG pCO2 ABG pO2 ABG HCO3 ABG O2 Saturation ABG Base Excess FiO2 Sodium Potassium 5.7 H Chloride Carbon Dioxide Anion Gap BUN Creatinine Estim Creat Clear Calc eGFR BUN/Creatinine Ratio Glucose Calculated Osmolality Calcium Corrected Calcium Phosphorus Magnesium Total Bilirubin AST ALT Alkaline Phosphatase Troponin I 4.088 H* D Total Protein Albumin Globulin Albumin/Globulin Ratio Random Vancomycin 23.6 11/13/24 11/14/24 11/14/24 22:50 00:46 04:35 WBC RBC Hgb Hct MCV MCH MCHC RDW Std Deviation Plt Count Neut % (Auto) Lymph % (Auto) [place] % (Auto) Eos % (Auto) Baso % (Auto) Neut # (Auto) Lymph # (Auto) [place] # (Auto) Eos # (Auto) Baso # (Auto) Immature Gran # (Auto) Absolute Nucleated RBC Immature Gran % Nucleated RBC % APTT 65.4 H D Puncture Site Right Brachial ABG pH 7.46 H ABG pCO2 40 ABG pO2 106 D ABG HCO3 29 H ABG O2 Saturation 99 H ABG Base Excess 4 H FiO2 40 Sodium Potassium 5.5 H Chloride Carbon Dioxide Anion Gap BUN Creatinine Estim Creat Clear Calc eGFR BUN/Creatinine Ratio Glucose Calculated Osmolality Calcium Corrected Calcium Phosphorus Magnesium Total Bilirubin AST ALT Alkaline Phosphatase Troponin I Total Protein Albumin Globulin Albumin/Globulin Ratio Random Vancomycin 11/14/24 05:24 WBC 8.8 RBC 3.22 L Hgb 9.5 L Hct 28.1 L MCV 87 MCH 29.5 MCHC 33.8 RDW Std Deviation 57.3 H Plt Count 106 L D Neut % (Auto) 76 Lymph % (Auto) 12 [place] % (Auto) 12 Eos % (Auto) 0 Baso % (Auto) 0 Neut # (Auto) 6.7 Lymph # (Auto) 1.0 [place] # (Auto) 1.0 H Eos # (Auto) 0.0 Baso # (Auto) 0.0 Immature Gran # (Auto) 0.04 H Absolute Nucleated RBC 0.00 Immature Gran % 1 H Nucleated RBC % 0 APTT 54.2 H D Puncture Site ABG pH ABG pCO2 ABG pO2 ABG HCO3 ABG O2 Saturation ABG Base Excess FiO2 Sodium 130 L Potassium 5.0 D Chloride 87 L Carbon Dioxide 27.9 Anion Gap 15 BUN 52 H Creatinine 5.9 H* D Estim Creat Clear Calc 7.9 L eGFR 7 L* BUN/Creatinine Ratio 9 L Glucose 101 Calculated Osmolality 274 L Calcium 8.0 L Corrected Calcium 8.5 Phosphorus 7.4 H Magnesium 2.3 Total Bilirubin 0.3 AST 19 ALT < 7 L Alkaline Phosphatase 89 Troponin I Total Protein 5.2 L Albumin 3.4 Globulin 1.8 L Albumin/Globulin Ratio 1.9 Random Vancomycin 20.3 ABG Interpretation ABG results: 11/11/24 11/11/24 11/12/24 04:01 07:38 04:55 ABG pH 7.14 L* 7.37 D 7.26 L D ABG pCO2 71 H* 42 D 44 ABG pO2 116 H 97 95 ABG HCO3 24 24 20 ABG O2 Saturation 97 99 H 98 ABG Base Excess -6 L -1 -7 L 11/13/24 11/14/24 04:13 04:35 ABG pH 7.42 D 7.46 H ABG pCO2 48 40 ABG pO2 79 L 106 D ABG HCO3 31 H 29 H ABG O2 Saturation 97 99 H ABG Base Excess 6 H 4 H Quality Measures Quality Measures none Advance care planning discussed with:: patient Assessment & Plan Assessment Current Active Medications: Generic Name Dose Route Start Last Admin Trade Name Julissa PRN Reason Stop Dose Admin Acetaminophen 650 mg 11/11/24 05:17 Acetaminophen 325 Mg Tablet PO 12/11/24 05:16 Q6H PRN Fever >100.5 Albuterol/Ipratropium 3 ml 11/11/24 07:00 11/14/24 06:07 Albuterol/Ipratropium (Duoneb) Rt Poonam 3 Ml Nebu INH 12/11/24 06:59 3 ml Q4HRRT RAYO Administration Amiodarone HCl 200 mg 11/11/24 09:00 11/13/24 21:00 Amiodarone Hcl 200 Mg Tablet NG 12/11/24 08:59 200 mg BID RAYO Administration Aspirin 81 mg 11/11/24 09:00 11/13/24 08:09 Aspirin 81 Mg Chew NG 12/11/24 08:59 81 mg QDAY RAYO Administration Atorvastatin Calcium 40 mg 11/11/24 21:00 11/13/24 21:00 Atorvastatin Calcium 20 Mg Tablet NG 12/11/24 20:59 40 mg HS RAYO Administration Calcium Carbonate 600 mg 11/11/24 09:00 11/14/24 08:24 Calcium Carbonate 600 Mg Tablet NG 12/11/24 08:59 600 mg BID RAYO Administration Clopidogrel Bisulfate 75 mg 11/14/24 09:00 Clopidogrel Bisulfate 75 Mg Tablet PO 12/14/24 08:59 QDAY RAYO Dextrose 25 ml 11/12/24 06:24 Dextrose 50%-Water Inj 50 Ml Syringe IV 12/12/24 06:23 Q15MIN PRN BG 50-70 responsive npo pt Dextrose 50 ml 11/12/24 06:24 Dextrose 50%-Water Inj 50 Ml Syringe IV 12/12/24 06:23 Q15MIN PRN BG <50 OR BG <70 & pt unresponsive Famotidine 20 mg 11/11/24 09:00 11/13/24 08:12 Famotidine Inj 10 Mg/Ml Vial 2 Ml IVP 12/11/24 08:59 20 mg QDAY RAYO Administration Protocol Glucagon 1 mg 11/12/24 06:24 Glucagon Inj 1 Mg Vial IM Q15MIN PRN BG <70, and no IV access Hydralazine HCl 10 mg 11/11/24 05:30 Hydralazine Inj 20 Mg/Ml Vial IVP 12/11/24 05:29 Q6H PRN SBP>180 Fentanyl Citrate 2,500 mcg in 250 mls @ 2.5 mls/hr 11/11/24 04:27 11/13/24 08:48 Sublimaze Inj 2,500 Mcg/250 Ml Bag IV 11/16/24 04:06 0 mcg/hr .Q24H PRN 0 mls/hr PER PROTOCOL Titration Protocol 25 MCG/HR Propofol 1,000 mg in 100 mls @ 2.072 mls/hr 11/11/24 04:27 11/13/24 08:48 Diprivan Ivpb IV 12/11/24 03:37 0 mcg/kg/min .Q24H PRN 0 mls/hr Per Protocol Titration Protocol 5 MCG/KG/MIN Ceftriaxone Sodium/Dextrose 1 gm in 50 mls @ 100 mls/hr 11/11/24 11:27 11/13/24 08:10 Rocephin/D5w 1gm Iv Premix IV 11/18/24 11:26 100 mls/hr QDAY RAYO Administration Norepinephrine/Dextrose 8 mg in 250 mls @ 6.476 mls/hr 11/11/24 16:05 11/13/24 14:59 Levophed In D5w 8mg/250ml IV 12/11/24 16:04 0 mcg/kg/min .Q24H PRN 0 mls/hr PER PROTOCOL Titration Protocol 0.05 MCG/KG/MIN Dexmedetomidine/Sodium Chloride 400 mcg in 100 mls @ 3.375 mls/hr 11/13/24 09:53 11/14/24 08:00 Precedex Ivpb IV 12/13/24 09:42 1.4 mcg/kg/hr .Q24H PRN 23.625 mls/hr Per PROTOCOL Titration Protocol 0.2 MCG/KG/HR Heparin Sodium/Dextrose 25,000 unit in 250 mls @ 8.1 mls/hr 11/13/24 15:15 11/14/24 08:15 Heparin In D5w Ivpb IV 11/27/24 15:14 12 units/kg/hr .Q24H RAYO 8.1 mls/hr Titration Protocol 12 UNITS/KG/HR Albumin Human 25 gm in 100 mls @ 100 mls/min 11/14/24 08:47 Albuminar-25 Ivpb IV PRN PRN DIALYSIS Methylprednisolone Sodium Succinate 60 mg 11/11/24 09:00 11/13/24 08:08 Methylprednisolone Sod Succ 40 Mg Vial IV 11/18/24 08:59 60 mg QDAY RAYO Administration Midodrine 10 mg 11/11/24 22:00 11/14/24 05:02 Midodrine 5 Mg Tablet NG 12/11/24 21:59 Not Given TID RAYO Ondansetron HCl 4 mg 11/11/24 05:17 Ondansetron Inj 2 Mg/Ml Inj 2 Ml IVP 12/11/24 05:16 Q6H PRN NAUSEA OR VOMITING Protocol Patiromer 8.4 gm 11/13/24 10:45 11/13/24 11:26 Patiromer Calcium 8.4 Gm Packet (Non-Form) PO 12/13/24 10:44 8.4 gm DAILY RAYO Administration Pharmacy Consult 1 each 11/11/24 05:27 Pharmacy Renal Dose Adjustment 1 Ea XX 12/11/24 05:26 PRN PRN CONSULT Sevelamer Carbonate 0.8 gm 11/14/24 08:00 11/14/24 08:21 Sevelamer Carbonate 0.8 Gm Packet (Non-Formulary) NG 12/14/24 07:59 0.8 gm TIDWM RAYO Administration Sodium Chloride 3 ml 11/11/24 04:43 Sodium Chloride Rt Poonam 0.9% 3 Ml Nebu INH 12/11/24 04:42 PRN PRN SOLN Plan Mirella Grewal is a 74-year-old F with a PMH of CHF, coronary artery disease with multiple MIs s/p stents, COPD on 3 L home oxygen, ESRD on hemodialysis, Thursday, Thursday, , Thursday, and A-fib with pacemaker, who was brought in by EMS with a chief complaint of acute SOB. The patient was intubated and admitted to ICU for further management of acute hypoxic hypercapnic respiratory failure secondary to COPD exacerbation. We, the nephrology team, were consulted for the patient's combined respiratory and metabolic acidosis and need for urgent hemodialysis due to ESRD status. Patient did not receive HD yesterday on 11/13 but is planned for HD today, 11/14. #Combined respiratory and metabolic acidosis #ESRD on HD (Thursday, Thursday, , Thursday) Admission ABG showed pH 7.14 and pCO2 71, elevated lactic acid 4.1 Admission creatinine 6.4 (baseline: possibly 4.8-4.9), BUN 39, eGFR 6 11/12/24: worsening kidney function and toxic buildup due to no HD yesterday, creatinine 7.9, BUN 61, K 6.8, phosphorus 7.8 11/12/24: received HD 11/13/24: Cr 4.8 from 7.9, BUN 42 from 61, K 5.6 from 6.8 (improved kidney function after 11/12 HD) 11/14/24: Cr 5.9 from 4.8, BUN 52 from 42, K 5.0 from 5.6, Hgb 9.5, Plt Count 106, ABG pH 7.46 from 7.42, phosphorus 7.4 from 5.8 Patient has a left-sided fistula and receives her HD on / Diagnostic Inquiry -No current recommendation Treatment Plan -Urgent hemodialysis today w/ IV albumin prn -Strict I's & O's -Avoid nephrotoxic medications 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, requires vascular surgery follow up Fistula remains patent and thrill is palpable Diagnostic Inquiry -Follow-up with vascular surgery Treatment Plan -Continue to monitor #Acute hypoxic respiratory failure - no longer intubated #CAP #Possible CHF exacerbation, likely 2/2 volume overload in the setting of ESRD #Pleural Effusion Critically elevated BNP 2005 with elevated troponin I 0.046 CXR showed moderate congestive heart failure with prominent vascular congestion and perihilar basilar edema Chest CT showed mild heart failure with moderate enlargement of the cardiac contour with small bilateral pleural effusions 11/13 CXR showed bibasilar pneumonia with significant RLL consolidation 11/13 EKG showed a change from sinus rhythm to atrial fibrillation with intermittent pacemaker rhythm 11/14 troponin downtrended to 3.023 from 4.088 Cardiology (Dr. Escudero) is onboard Diagnostic Inquiry -Cardiology is considering coronary angiogram Treatment Plan -Urgent hemodialysis today w/ IV albumin prn -Per cardiology recommendations, continue amiodarone, atorvastatin, and methylprednisolone (and start diltiazem if patient develops tachycardia) -Per primary care team, continue IV Rocephin #Electrolyte abnormalities #Hypocalcemia, likely 2/2 ESRD status (resolving) #Mild hyponatremia #Hypochloremia Admission calcium 7.7, however, calcium levels have normalized 11/14: Na 130 from 132, Cl 87 from 88, Diagnostic Inquiry -No current recommendation Treatment Plan -Continue NG calcium carbonate BID per primary care team -Monitor electrolyte levels, correct as needed -Continue Veltassa to treat possible hyperkalemia -Continue sevelamer to treat possible hyperphosphatemia #Normocytic anemia, likely 2/2 ESRD status #Thrombocytopenia Admission Hgb 11.1 (MCV 96, RDW 63.4) 11/12/24: Hgb dropped to 10.0 -s/p Epoetin 10,000 U x1 11/14/24: Hgb 9.5, platelet count down to 106 from 134 Diagnostic Inquiry -Pursue outpatient workup per primary care team Treatment Plan -Monitor H&H, transfuse if Hgb<7 -Epoetin #Other medical problems #Acute encephalopathy likely 2/2 CO2 narcolepsy in the setting of COPD exacerbation #Acute hypoxic hypercapnic respiratory failure likely 2/2 CHF exacerbation vs. COPD exacerbation vs. both #COPD exacerbation #Community-acquired pneumonia #Leukocytosis- downtrending #CAD s/p stents #Hx of A-fib, on Eliquis and s/p pacemaker Diagnostic Inquiry -Continue management per primary care team Treatment Plan -Continue management per primary care team Hospital Management: Disposition: Patient admitted to ICU for further management of acute hypoxic hypercapnic respiratory failure secondary to COPD exacerbation, requires urgent HD Diet: NPO Lines: Left IJ central line, peripheral lines DVT Prophylaxis: Eliquis 5 mg BID CODE STATUS: Full Code Thank you for allowing us to be part of the patient's care. I have examined the patient and conferred with the nephrology attending, Dr. Mishra, regarding them. Tim Pineda, PGY-1 Internal Medicine Attending Provider Attestation/Addendum Patient seen and examined with resident physician Dr. Pineda. Note reviewed, agree with findings and recommendations. Patient currently seen in ICU. On ventilator. Patient currently seen on dialysis. Tolerating dialysis without any problems. Hemodialysis for 3 hours, 3K, ultrafiltration 2-3 L, Epogen 6000, no heparin ordered. Plan of care discussed with the dialysis nurse. Please see dialysis flowsheet for further details. Postdialysis possible extubation. Spoke to ICU team.
[2024-11-14 08:54] LABS: Troponin I 3.023 ng/mL (0.0-0.045)
--- NOTE | 2024-11-14 09:13 | PC.SS ---
MONOMER RECOVERY OPERATOR attempted phone call with patient's friend,Luis Bose ; no response MONOMER RECOVERY OPERATOR left voicemail requesting return call.
[2024-11-14] MEDS: ALBUMIN HUMAN 25% IVPB 25 GM/100 ML BTL IV (09:31)
--- NOTE | 2024-11-14 09:31 | PC.NURSE ---
BP LOW PT DENIES ALL S/S OF HYPOTENSION WILL ADMIN PRN ALBUMIN AND CONT. TO MONITOR
[2024-11-14] MEDS: MIDAZOLAM INJ 1 MG/ML VIAL 2 ML 0.5 MG IVP (10:04)
--- NOTE | 2024-11-14 11:20 | PC.SS ---
WEAVER DOBBY LOOM conducted phone contact with patient's friend, Aston Leonard ; to confirm contact number for patient's POC, Herson Bose. Friend confirmed Herson Bose's number as [phone]. Friend informed WEAVER DOBBY LOOM that Herson works throughout the day.
--- NOTE | 2024-11-14 11:22 | PC.SS ---
SLIP BOX CHANGER attempted phone call with patient's friend,Luis Bose ; no response SLIP BOX CHANGER left voicemail requesting return call.
--- NOTE | 2024-11-14 11:23 | PC.SS ---
NOVELTY PRINTING MACHINE OPERATOR contacted [facility] dialysis center to confirm patient's POC list. Dialysis center has Herson Bose listed as patient's POC.
--- NOTE | 2024-11-14 11:30 | PC.NURSE ---
TX TERMINATED EARLY PER ICU MD SINGLETON, D/T TACHYCARDIA. MD THEODORE NOTIFIED.
[2024-11-14] MEDS: AMIODARONE 150 MG IVPB 150 MG/100 ML BAG 600 MG IV (11:32)
--- NOTE | 2024-11-14 11:35 | EKG_ITS ---
[facility] Test Date: 2024-11-14 Pat Name: REILLY GRADY Department: Room: S253A Gender: Female Weighbridge Operator: MAKAYLA : 1950 Requested By: Elmer Husain Order Number: [id number] Reading MD: Elmer Husain Measurements Intervals [place] Rate: 87 P: UT: QRS: 41 QRSD: 130 T: -71 QT: 425 QTc: 512 Interpretive Statements ATRIAL FIBRILLATION WITH ABERRANT CONDUCTION OR VENTRICULAR PREMATURE COMPLEXES POSSIBLE INFERIOR MYOCARDIAL INFARCTION , OF INDETERMINATE AGE Compared to ECG 11/13/2024 15:23:38 Myocardial infarct finding now present Intraventricular conduction delay no longer present T-wave abnormality no longer present Possible ischemia no longer present /store/S0/[id number].pdf
[2024-11-14] MEDS: FAMOTIDINE INJ 10 MG/ML VIAL 2 ML 20 MG IVP (11:36)
[2024-11-14] MEDS: cefTRIAXone/D5w 1gm IV premix 1 GM/50 ML BAG IV (11:39)
[2024-11-14] MEDS: ASPIRIN 81 MG CHEW NG (11:39)
[2024-11-14] MEDS: CLOPIDOGREL BISULFATE 75 MG TABLET PO (11:39)
[2024-11-14] MEDS: Magnesium Sulfate 2 GM Ivpb 2 GM/50 ML BAG IV (11:41)
[2024-11-14] MEDS: AMIODARONE 360 MG IVPB 360 MG/200 ML BAG 33.333 MG IV (11:42)
[2024-11-14] MEDS: PATIROMER CALCIUM 8.4 GM PACKET (NON-FORM) PO (11:43)
[2024-11-14] MEDS: fentaNYL 2,500 MCG/250 ML BAG 2,500 MCG/250 ML BAG IV (12:45)
[2024-11-14] MEDS: EPOETIN ALFA-EPBX INJ 10,000 UNIT/ML VIAL (ESRD) 10000 UNIT SC (14:23)
[2024-11-14 14:54] LABS: Partial Thromboplastin Time 51.5 Seconds (22.0-36.0)
--- NOTE | 2024-11-14 16:02 | PC.SS ---
REFRIGERATION MECHANIC HELPER attempted phone call with patient's friend, Luis Bose ; no response REFRIGERATION MECHANIC HELPER left voicemail requesting return call.
--- NOTE | 2024-11-14 16:11 | PC.SS ---
ROADS SUPERVISOR conducted chart review to conduct initial assessment.? Patient possesses medical history of COPD, ESRD and A-fib with pacemaker.? Patient BIBA from home due to acute SOB.? Patient resides alone at home.? Patient utilizes a walker to assist with ambulation.? Patient utilizes home oxygen, 3L.? Chart review indicates that patient is able to complete ADL?s independently.? Patient?s surrogate medical decision maker is listed as Luis Bose .? Patient?s PCP is Dr. Mishra.? Patient is an established dialysis patient.? Schedule is Mon, Tues, Thurs and Sat.? Patient?s ground nuclear weapons assembly officer is Dr. Escudero. Patient utilizes [facility] for medication services.? media services director will discuss discharge needs at an appropriate future time.? No further intervention required at this time, social media marketer will be available to address any further concerns.? Next of Kin: Luis Bose D/C Plan: Pending
[2024-11-14] MEDS: AMIODARONE 360 MG IVPB 360 MG/200 ML BAG 16.667 MG IV (16:50)
--- NOTE | 2024-11-14 18:23 | PC.NURSE ---
at 1125, pt having rhythm changes and pt becoming anxious, Dr. Merritt and Teddy at bedside, amio gtt started, no other orders receive at this time
--- NOTE | 2024-11-14 18:36 | ESPR_ITS ---
Documentation for date of: 11/14/24 Subjective Subjective Interval history: The patient is a 74-year-old female with significant past medical history of CHF, coronary artery disease with multiple MIs s/p stents, COPD on 3 L home oxygen, ESRD on hemodialysis, Thursday, Thursday, , Thursday, A-fib with pacemaker, brought in by EMS with chief complaint of acute SOB. The patient called EMS due to SOB, and she was saturating on 80s at her home. She was given DuoNeb on the way to hospital, and when she presented to ED, her saturation was 84 on high flow CPAP. She was already altered, and was intubated. Further history were unobtainable, as patient was already intubated during my evaluation. In the ED her vitals were significant for a blood pressure of 200/76, pulse 79, RR 20, labs are significant for white count 13.5, RBC 3.88, hemoglobin 11.1, D- dimer 2630, ABG revealed pH of 7.14, pCO2 71, pO2 116, bicarb 24, sodium 135, potassium 4.6, BUN 39, creatinine 6.4, lactic acid 4.1, corrected calcium 7.7, magnesium 2.2, AST/ALT/ALP less than 10, less than 10/05/2027 respectively. Ammonia was 17, troponin 0.046, CRP less than 0.5, BNP 2006, lipid panel revealed LDL 116, lipase 68, TSH 6.61, free T4 0.84. UA revealed orange urine, 2+ protein, 2+ blood, leukocyte Estrace positive, RBC 502, WBC 1255, chest x-ray revealed right lower lobe pneumonia, EKG revealed old IN. The patient received methylprednisone 125 Mg IV x 1, bolus fluid 1 L at the rate 250 cc/h, cefixime 2 g IV x 1, and started on vancomycin. The patient was intubated and admitted to ICU for further management of acute hypoxic hypercapnic respiratory failure secondary to COPD exacerbation. 11/11/2024: Patient is sedated and on mechanical ventilator. Most of the history is taken from the chart review and from the nurse at the bedside. Patient supposedly lives alone and developed shortness of breath, for which she called the EMS. By the time EMS went her home she was severely short of breath for which she was given DuoNebs and was kept on CPAP following which she was brought to the hospital where she was given steroids, sedated and intubated. Later central line was placed. No acute overnight events. Vitals are stable and patient is on propofol and fentanyl drip without any vasopressor support. Started on methylprednisolone 60 Mg IV once daily, ceftriaxone and azithromycin. Repeat ABG after the intubation is within normal limits. Will continue mechanical ventilation for now and monitor the patient. Later in the evening, patient is found to be mildly hypotensive for which low-dose Levophed was started and patient was given a dose of midodrine 10 Mg through orogastric tube. 11/12/2024: Patient is seen and examined at bedside in the ICU. No acute overnight events. Sedated and on mechanical ventilator, VC/AC mode with tidal volume 380, PEEP 5, FiO2 30% and saturating around 95%. Vitals are stable and patient is mildly hypotensive, started on Levophed which was stopped around 7 AM this morning, maintain blood pressures only on minimal doses of Levophed 0.05 mcg/kg/min. Labs done this morning showed mild leukocytosis, sodium 131, potassium 5.5, BUN 61, creatinine 7.9, bicarb 19.2, phosphorus 7.8. ABG showed metabolic acidosis Patient missed her dialysis session yesterday which was started this morning and Levophed is restarted to support the blood pressure during dialysis. Tolerated dialysis well on 2 L of fluid is taken. Patient was changed from VC/AC mode to pressure support mode. Will repeat ABG tomorrow morning and if patient is hemodynamically stable, able to respond after weaning of the sedation, planning to wean her off the mechanical ventilator. 11/13/2024: Patient seen this morning, at a RASS of 0 able to follow commands well, interactive and trying to communicate. Initially plan was to extubate today. Later that morning around 9:40 am patient appeared anxious and went into SVT rate up to 180s with hypoxia in the 70s while on pressure support. Patient was switched back to AC/VC on 100% FiO2. Patient was given metoprolol tartrate 5 mg IV x1, adenosine 6 mg IV x1, furosemide 40 mg IV x1, diltiazem 10 mg IV x1, and midazolam 1 mg IV x1, after which patient had resolution of heart rate and rhythm. Patient was then placed on Precedex drip. Will keep patient sedated overnight and try for extubation tomorrow. Started Veltassa for hyperkalemia, follow up potassium levels. Patient will have dialysis tomorrow. Troponin was repeated in the afternoon which was elevated at 4.088 therefore Plavix loading dose was given 300 mg x1 followed by 75 mg qday and heparin drip was started after discussed with Dr. Escudero. 11/14/2024: Patient is seen and examined at bedside in the ICU. Initial plan was to extubate patient this morning but after decreasing the sedation, patient became more interactive and is trying to communicate with the hand gestures and trying to speak. Patient was kept on pressure support mode and she was tolerating it well. Later suddenly noted multiple episodes of SVT and VT. Patient was given 300 mg bolus of amiodarone and was started on amiodarone drip. Later no further episodes of arrhythmias were noted during the day. Patient was kept back on the VC/AC mode. Consulted inserter promotional item, Dr. Escudero who is following the patient, recommended that he will do cardiac cath on 11/16/2024. So we will plan to extubate patient once the cardiac cath is done as patient is going into arrhythmias whenever trying to wean her off the sedation and extubate. Patient is taking metoprolol 25 mg twice daily at home. Echocardiogram done on 11/13/2024 showed EF of 30%. So resumed metoprolol to tartrate 25 mg twice daily. Will continue telemetry monitoring Exam Vital Signs Temp Pulse Resp BP Pulse Ox O2 Del Method O2 Flow Rate 97.7 F 70 18 134/64 H 100 Mechanical Ventilation 80 11/14/24 16:00 11/14/24 18:15 11/14/24 14:15 11/14/24 18:15 11/14/24 18:15 11/14/24 16:00 11/11/24 04:35 FiO2 40 11/14/24 16:00 Narrative Exam General: Sedated and Mechanically ventilated. HEENT: Normocephalic, atraumatic, mucous membranes moist. Heart: Regular rate and rhythm, no murmurs. Lungs: Clear to auscultation with no wheezing or crackles. Abdomen: Soft, nondistended, nontender, positive bowel sounds. ?No guarding or rebound tenderness. Neurologic: Sedated and mechanically ventilated. Extremities: No edema. Left AV fistula noted. 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 Right upper extremity swelling Skin: No rash. ecchymotic patches noted on right arm and at the site of IV catheters Objective Labs 11/16/24 04:39 11/15/24 05:10 Labs: Laboratory Results - last 24 hr 11/13/24 11/14/24 11/14/24 22:50 00:46 04:35 WBC RBC Hgb Hct MCV MCH MCHC RDW Std Deviation Plt Count Neut % (Auto) Lymph % (Auto) [place] % (Auto) Eos % (Auto) Baso % (Auto) Neut # (Auto) Lymph # (Auto) [place] # (Auto) Eos # (Auto) Baso # (Auto) Immature Gran # (Auto) Absolute Nucleated RBC Immature Gran % Nucleated RBC % APTT 65.4 H D Puncture Site Right Brachial ABG pH 7.46 H ABG pCO2 40 ABG pO2 106 D ABG HCO3 29 H ABG O2 Saturation 99 H ABG Base Excess 4 H FiO2 40 Sodium Potassium 5.5 H Chloride Carbon Dioxide Anion Gap BUN Creatinine Estim Creat Clear Calc eGFR BUN/Creatinine Ratio Glucose Calculated Osmolality Calcium Corrected Calcium Phosphorus Magnesium Total Bilirubin AST ALT Alkaline Phosphatase Troponin I Total Protein Albumin Globulin Albumin/Globulin Ratio Random Vancomycin 11/14/24 11/14/24 05:24 14:04 WBC 8.8 RBC 3.22 L Hgb 9.5 L Hct 28.1 L MCV 87 MCH 29.5 MCHC 33.8 RDW Std Deviation 57.3 H Plt Count 106 L D Neut % (Auto) 76 Lymph % (Auto) 12 [place] % (Auto) 12 Eos % (Auto) 0 Baso % (Auto) 0 Neut # (Auto) 6.7 Lymph # (Auto) 1.0 [place] # (Auto) 1.0 H Eos # (Auto) 0.0 Baso # (Auto) 0.0 Immature Gran # (Auto) 0.04 H Absolute Nucleated RBC 0.00 Immature Gran % 1 H Nucleated RBC % 0 APTT 54.2 H D 51.5 H Puncture Site ABG pH ABG pCO2 ABG pO2 ABG HCO3 ABG O2 Saturation ABG Base Excess FiO2 Sodium 130 L Potassium 5.0 D Chloride 87 L Carbon Dioxide 27.9 Anion Gap 15 BUN 52 H Creatinine 5.9 H* D Estim Creat Clear Calc 7.9 L eGFR 7 L* BUN/Creatinine Ratio 9 L Glucose 101 Calculated Osmolality 274 L Calcium 8.0 L Corrected Calcium 8.5 Phosphorus 7.4 H Magnesium 2.3 Total Bilirubin 0.3 AST 19 ALT < 7 L Alkaline Phosphatase 89 Troponin I 3.023 H* D Total Protein 5.2 L Albumin 3.4 Globulin 1.8 L Albumin/Globulin Ratio 1.9 Random Vancomycin 20.3 ABG Interpretation ABG results: 11/11/24 11/11/24 11/12/24 04:01 07:38 04:55 ABG pH 7.14 L* 7.37 D 7.26 L D ABG pCO2 71 H* 42 D 44 ABG pO2 116 H 97 95 ABG HCO3 24 24 20 ABG O2 Saturation 97 99 H 98 ABG Base Excess -6 L -1 -7 L 11/13/24 11/14/24 04:13 04:35 ABG pH 7.42 D 7.46 H ABG pCO2 48 40 ABG pO2 79 L 106 D ABG HCO3 31 H 29 H ABG O2 Saturation 97 99 H ABG Base Excess 6 H 4 H Quality Measures Quality Measures none Advance care planning discussed with:: other Assessment & Plan Assessment Current Active Medications: Generic Name Dose Route Start Last Admin Trade Name Freq PRN Reason Stop Dose Admin Acetaminophen 650 mg 11/11/24 05:17 Acetaminophen 325 Mg Tablet PO 12/11/24 05:16 Q6H PRN Fever >100.5 Albuterol/Ipratropium 3 ml 11/11/24 07:00 11/14/24 18:36 Albuterol/Ipratropium (Duoneb) Rt Poonam 3 Ml Nebu INH 12/11/24 06:59 3 ml Q4HRRT RAYO Administration Aspirin 81 mg 11/11/24 09:00 11/14/24 11:39 Aspirin 81 Mg Chew NG 12/11/24 08:59 81 mg QDAY RAYO Administration Atorvastatin Calcium 40 mg 11/11/24 21:00 11/13/24 21:00 Atorvastatin Calcium 20 Mg Tablet NG 12/11/24 20:59 40 mg HS RAYO Administration Calcium Carbonate 600 mg 11/11/24 09:00 11/14/24 08:24 Calcium Carbonate 600 Mg Tablet NG 12/11/24 08:59 600 mg BID RAYO Administration Clopidogrel Bisulfate 75 mg 11/14/24 09:00 11/14/24 11:39 Clopidogrel Bisulfate 75 Mg Tablet PO 12/14/24 08:59 75 mg QDAY RAYO Administration Dextrose 25 ml 11/12/24 06:24 Dextrose 50%-Water Inj 50 Ml Syringe IV 12/12/24 06:23 Q15MIN PRN BG 50-70 responsive npo pt Dextrose 50 ml 11/12/24 06:24 Dextrose 50%-Water Inj 50 Ml Syringe IV 12/12/24 06:23 Q15MIN PRN BG <50 OR BG <70 & pt unresponsive Famotidine 20 mg 11/11/24 09:00 11/14/24 11:36 Famotidine Inj 10 Mg/Ml Vial 2 Ml IVP 12/11/24 08:59 20 mg QDAY RAYO Administration Protocol Glucagon 1 mg 11/12/24 06:24 Glucagon Inj 1 Mg Vial IM Q15MIN PRN BG <70, and no IV access Hydralazine HCl 10 mg 11/11/24 05:30 Hydralazine Inj 20 Mg/Ml Vial IVP 12/11/24 05:29 Q6H PRN SBP>180 Fentanyl Citrate 2,500 mcg in 250 mls @ 2.5 mls/hr 11/11/24 04:27 11/14/24 17:20 Sublimaze Inj 2,500 Mcg/250 Ml Bag IV 11/16/24 04:06 125 mcg/hr .Q24H PRN 12.5 mls/hr PER PROTOCOL Titration Protocol 25 MCG/HR Propofol 1,000 mg in 100 mls @ 2.072 mls/hr 11/11/24 04:27 11/13/24 08:48 Diprivan Ivpb IV 12/11/24 03:37 0 mcg/kg/min .Q24H PRN 0 mls/hr Per Protocol Titration Protocol 5 MCG/KG/MIN Ceftriaxone Sodium/Dextrose 1 gm in 50 mls @ 100 mls/hr 11/11/24 11:27 11/14/24 11:39 Rocephin/D5w 1gm Iv Premix IV 11/18/24 11:26 100 mls/hr QDAY RAYO Administration Norepinephrine/Dextrose 8 mg in 250 mls @ 6.476 mls/hr 11/11/24 16:05 11/13/24 14:59 Levophed In D5w 8mg/250ml IV 12/11/24 16:04 0 mcg/kg/min .Q24H PRN 0 mls/hr PER PROTOCOL Titration Protocol 0.05 MCG/KG/MIN Dexmedetomidine/Sodium Chloride 400 mcg in 100 mls @ 3.375 mls/hr 11/13/24 09:53 11/14/24 15:00 Precedex Ivpb IV 12/13/24 09:42 1.4 mcg/kg/hr .Q24H PRN 23.625 mls/hr Per PROTOCOL Administration Protocol 0.2 MCG/KG/HR Heparin Sodium/Dextrose 25,000 unit in 250 mls @ 8.1 mls/hr 11/13/24 15:15 11/14/24 15:51 Heparin In D5w Ivpb IV 11/27/24 15:14 12 units/kg/hr .Q24H RAYO 8.1 mls/hr Titration Protocol 12 UNITS/KG/HR Albumin Human 25 gm in 100 mls @ 100 mls/min 11/14/24 08:47 11/14/24 09:31 Albuminar-25 Ivpb IV 100 mls/min PRN PRN Administration DIALYSIS Amiodarone HCl/Dextrose 360 mg in 200 mls @ 16.667 mls/hr 11/14/24 17:26 11/14/24 16:50 Nexterone Ivpb IV 11/15/24 17:25 16.667 mls/hr .Q12H RAYO Administration Methylprednisolone Sodium Succinate 60 mg 11/11/24 09:00 11/14/24 11:37 Methylprednisolone Sod Succ 40 Mg Vial IV 11/18/24 08:59 60 mg QDAY RAYO Administration Metoprolol Tartrate 25 mg 11/14/24 11:30 11/14/24 12:04 Metoprolol Tartrate 25 Mg Tablet NG 12/14/24 11:29 Not Given BID RAYO Midodrine 10 mg 11/11/24 22:00 11/14/24 13:06 Midodrine 5 Mg Tablet NG 12/11/24 21:59 Not Given TID RAYO Ondansetron HCl 4 mg 11/11/24 05:17 Ondansetron Inj 2 Mg/Ml Inj 2 Ml IVP 12/11/24 05:16 Q6H PRN NAUSEA OR VOMITING Protocol Patiromer 8.4 gm 11/13/24 10:45 11/14/24 11:43 Patiromer Calcium 8.4 Gm Packet (Non-Form) PO 12/13/24 10:44 8.4 gm DAILY RAYO Administration Pharmacy Consult 1 each 11/11/24 05:27 Pharmacy Renal Dose Adjustment 1 Ea XX 12/11/24 05:26 PRN PRN CONSULT Sevelamer Carbonate 0.8 gm 11/14/24 08:00 11/14/24 16:48 Sevelamer Carbonate 0.8 Gm Packet (Non-Formulary) NG 12/14/24 07:59 0.8 gm TIDWM RAYO Administration Sodium Chloride 3 ml 11/11/24 04:43 Sodium Chloride Rt Poonam 0.9% 3 Ml Nebu INH 12/11/24 04:42 PRN PRN SOLN Plan The patient is a 74-year-old female with significant past medical history of CHF, coronary artery disease with multiple MIs s/p stents, COPD on 3 L home oxygen, ESRD on hemodialysis, Thursday, Thursday, , Thursday, A-fib with pacemaker, brought in by EMS with chief complaint of acute SOB. The patient was intubated and admitted to ICU for further management of acute hypoxic hypercapnic respiratory failure secondary to COPD exacerbation. Neuro: #Acute encephalopathy Differential diagnosis: CO2 narcosis versus sedation versus metabolic. - CO2 narcosis: Likely as patient had history of COPD [on 3 L of oxygen at home], brought to the hospital with chief complaints of shortness of breath and noted to have severe wheeze for which she was given DuoNebs by the EMS and was kept on CPAP during admit to the hospital. - Sedation: Patient is currently on precedex and fentanyl, which could be the cause of encephalopathy for now as patient ABG significantly improved. - Metabolic: Patient had history of ESRD on HD, unsure of last dialysis session but per her a/c technician, Dr. Mishra she is getting dialysis 4 times in a week -Hypertensive encephalopathy: Blood pressure at the time of admission is 200/76 mmHg, unlikely as patient is having hypoxia and hypercapnia at the time of presentation and noted to have wheeze at the time of presentation Diagnostic test: - ABG at the time of admission showed pH 7.14, pCO2 71, PaO2 116, bicarb 24, oxygen saturation 97. - Chest x-ray showed cardiomegaly, infiltrates more on the right basilar area. - Labs showed WBC 13.5 - Tested negative for influenza A and B, COVID-19 Plan - Currently patient is on mechanical ventilator with sedation CVS: # CAD s/p multiple stents # S/p pacemaker # HFrEF, EF 45% in 2023 - Though patient presented with acute SOB, was found to have BNP 1999, no JVD or peripheral edema noted - EKG showed paced rhythm with ST elevation in 1, aVL and reciprocal depressions in 2, 3 and aVF suggestive of old IN Plan - Low-sodium diet - Fluid restriction to 1500 cc daily - Talked to inserter promotional item, Dr. Escudero about the EKG findings and he recommended that ST elevations are from old IN - Patient had history of NSTEMI in September, but rejected cardiac catheterization at that time, patient might be having ongoing ischemia due to which patient is having multiple episodes of SVT/VT - Planning to do cardiac catheterization on 11/16/2024 #Episode of SVT/VT 11/13/2024 Patient was given adenosine 6 mg IV x1, metoprolol 5 mg IV x1, diltiazem 10 mg IV x1 with conversion On 11/15/2023, when trying to wean patient off the sedation and kept on pressure support mode, patient became more agitated and developed multiple episodes of SVT and VT Plan - Continuous telemetry - Keep sedated overnight - Started on metoprolol tartarate 25mg twice daily # History of atrial fibrillation Patient never had documented episodes of atrial fibrillation but on pacemaker tracing, noted to have atrial fibrillation for which patient was started on amiodarone and Eliquis - Resumed her home amiodarone 200 Mg twice daily - Stopped Eliquis 5 mg twice daily for heparin drip # NSTEMI, likely type II versus type 1 Troponin is mildly elevated at the time of admission, 0.046 uptrended to 4.000 Though EKG showed changes of ST elevation, they are likely from the old IN - Will continue telemetry monitoring - Started heparin drip - Loading dose Plavix given 300 mg x1 - Start Plavix 75 mg qday - Following with Cardiology Pulmonology: #Acute hypoxic hypercapnic respiratory failure 2/2 #COPD exacerbation, resolved #Pulmonary edema Likely in the setting of worsening disease or superimposed bacterial infection and pulmonary edema in the setting of ESRD, Ongoing ischemic heart disease Diagnostic test: - Tested negative for influenza A, B and COVID-19 - ABG at the time of admission showed pH 7.14, pCO2 71, PaO2 116, bicarb 24, oxygen saturation 97. - Chest x-ray showed cardiomegaly, infiltrates more on the right basilar area. - Labs showed WBC 13.5 - Tested negative for influenza A and B, COVID-19 - Blood culture and ET secretions culture pending Treatment: - Patient is sedated, intubated and mechanically ventilated - Received methylprednisolone 125 Mg IV x 1 in the ED - Started on methylprednisolone 60 Mg IV daily, completed 5 days on - Nebulizations every fourth of every, DuoNebs - Tried to wean the patient off ventilator on 11/13, 11/14 but noted to go to SVT and VT on both days. - Planning to do cardiac cath on 11/16/2024, following which we will try to wean her off the ventilator GI: - No active problems Renal: #ESRD on HD -Patient is having 4 dialysis sessions per week At the time of admission, pH of 7.14, pCO2 71, lactic acid 4.1 Plan - Applications Processor Dr. Mishra consulted, appreciate recommendations - Received HD session on 11/15/2024 - Will need HD as per her routine schedule - Will avoid nephrotoxic medications and renally dose medications #Hypocalcemia Presented with calcium of 7.7 - Started on calcium carbonate 600 Mg twice daily via NG tube Hematology: #Leukocytosis, resolved Reactive versus steroid versus infective Secondary to pneumonia and COPD exacerbation - Continue to treat underlying cause #Normocytic anemia DDx: Inflammatory anemia due to chronic kidney disease, versus nutritional deficiency versus malabsorption - Workup as an outpatient basis ID: #Suspected community-acquired pneumonia - Antibiotic therapy treatment as above -Pending blood culture and ET secretion culture Health maintenance: Dispo: ICU for further management of acute hypoxic hypercapnic respiratory failure secondary to COPD exacerbation, Pulmonary edema Diet: Tube feeds through OG tube Lines: Left IJ central line, peripheral lines DVT prophylaxis: Heparin CODE STATUS: Full code Patient plan of care was discussed with the compliance administrator, Dr. Merritt. Elmer Husain, PGY2 Attending Provider Attestation/Addendum Patient seen and examined with resident, agree with above. In brief is a 74-year-old female admitted to the ICU with acute respiratory failure. On physical exam she is awake alert and follows commands, normal body habitus, lungs are clear, heart rate regular and rhythmic with ectopics, abdomen soft and nontender, moves all 4 extremities. Today attempted a spontaneous breathing trial again however she became extremely anxious once more and developed SVT along with VT. She has an ICD which appears to have fired. She was started on a amiodarone drip. Discussed with cardiology given inability to wean from the ventilator. There is strong suspicion for an underlying ischemic event. She is currently on heparin, aspirin and Plavix for her non-STEMI. Patient will be scheduled for cardiac cath in the near future. Case discussed with ICU team and cardiology Labs, imaging records reviewed Approximately 48 critical care minutes required for evaluation, exam, review, intervention, discussion formulation of plan of care this critically ill patient with respiratory failure and unstable arrhythmia at high risk for further ongoing decompensation.
[2024-11-14] MEDS: ATORVASTATIN CALCIUM 20 MG TABLET 40 MG NG (20:01)
[2024-11-14] MEDS: METOPROLOL TARTRATE 25 MG TABLET NG (20:01)
--- NOTE | 2024-11-14 20:22 | ESPR_ITS ---
<Statement entered by Jessenia Escudero MD - 11/20/24 18:35> I personally evaluated the patient surgical and critical condition with the PGY 2 and PGY1 both resident team aware of the patient for more than 50 minutes of critical care time has recurrent ischemia causing pulmonary edema acute hypoxic respite failure difficulty manage patient will require coronary angiogram at some point but unable to get a consent patient's evaluated personally examined the patient in detail and will continue to monitor the patient closely evaluate patient agree with treatment plan recommendation as documented. Documentation for date of: 11/14/24 Subjective Subjective Interval history: No acute overnight. Seen examined at bedside. Intubated, mechanically ventilated, no apparent distress. Evidently, attempt for extubation failed today given recurrent SVTs and tachyarrhythmia. At this point, likely she has underlying ischemic cardiomyopathy, given the spike in troponin as well as recurrent tachyarrhythmia. Recommended continuing intubation and sedation. Will proceed with cath on Thursday once she is hemodynamically stable. Exam Vital Signs Temp Pulse Resp BP Pulse Ox O2 Del Method O2 Flow Rate 96.9 F 75 18 139/77 H 100 Mechanical Ventilation 80 11/14/24 19:30 11/14/24 20:15 11/14/24 14:15 11/14/24 20:15 11/14/24 20:15 11/14/24 16:00 11/11/24 04:35 FiO2 40 11/14/24 16:00 Narrative Exam General: Sedated and Mechanically ventilated. HEENT: Normocephalic, atraumatic, mucous membranes moist. Heart: Regular rate and rhythm, no murmurs. Lungs: Clear to auscultation with no wheezing or crackles. Abdomen: Soft, nondistended, nontender, positive bowel sounds. ?No guarding or rebound tenderness. Neurologic: Sedated and mechanically ventilated. Extremities: No edema. Left AV fistula noted Skin: No rash or ecchymoses. Objective Labs 11/15/24 05:10 11/15/24 05:10 Labs: Laboratory Results - last 24 hr 11/13/24 11/14/24 11/14/24 22:50 00:46 04:35 WBC RBC Hgb Hct MCV MCH MCHC RDW Std Deviation Plt Count Neut % (Auto) Lymph % (Auto) [place] % (Auto) Eos % (Auto) Baso % (Auto) Neut # (Auto) Lymph # (Auto) [place] # (Auto) Eos # (Auto) Baso # (Auto) Immature Gran # (Auto) Absolute Nucleated RBC Immature Gran % Nucleated RBC % APTT 65.4 H D Puncture Site Right Brachial ABG pH 7.46 H ABG pCO2 40 ABG pO2 106 D ABG HCO3 29 H ABG O2 Saturation 99 H ABG Base Excess 4 H FiO2 40 Sodium Potassium 5.5 H Chloride Carbon Dioxide Anion Gap BUN Creatinine Estim Creat Clear Calc eGFR BUN/Creatinine Ratio Glucose Calculated Osmolality Calcium Corrected Calcium Phosphorus Magnesium Total Bilirubin AST ALT Alkaline Phosphatase Troponin I Total Protein Albumin Globulin Albumin/Globulin Ratio Random Vancomycin 11/14/24 11/14/24 05:24 14:04 WBC 8.8 RBC 3.22 L Hgb 9.5 L Hct 28.1 L MCV 87 MCH 29.5 MCHC 33.8 RDW Std Deviation 57.3 H Plt Count 106 L D Neut % (Auto) 76 Lymph % (Auto) 12 [place] % (Auto) 12 Eos % (Auto) 0 Baso % (Auto) 0 Neut # (Auto) 6.7 Lymph # (Auto) 1.0 [place] # (Auto) 1.0 H Eos # (Auto) 0.0 Baso # (Auto) 0.0 Immature Gran # (Auto) 0.04 H Absolute Nucleated RBC 0.00 Immature Gran % 1 H Nucleated RBC % 0 APTT 54.2 H D 51.5 H Puncture Site ABG pH ABG pCO2 ABG pO2 ABG HCO3 ABG O2 Saturation ABG Base Excess FiO2 Sodium 130 L Potassium 5.0 D Chloride 87 L Carbon Dioxide 27.9 Anion Gap 15 BUN 52 H Creatinine 5.9 H* D Estim Creat Clear Calc 7.9 L eGFR 7 L* BUN/Creatinine Ratio 9 L Glucose 101 Calculated Osmolality 274 L Calcium 8.0 L Corrected Calcium 8.5 Phosphorus 7.4 H Magnesium 2.3 Total Bilirubin 0.3 AST 19 ALT < 7 L Alkaline Phosphatase 89 Troponin I 3.023 H* D Total Protein 5.2 L Albumin 3.4 Globulin 1.8 L Albumin/Globulin Ratio 1.9 Random Vancomycin 20.3 ABG Interpretation ABG results: 11/11/24 11/11/24 11/12/24 04:01 07:38 04:55 ABG pH 7.14 L* 7.37 D 7.26 L D ABG pCO2 71 H* 42 D 44 ABG pO2 116 H 97 95 ABG HCO3 24 24 20 ABG O2 Saturation 97 99 H 98 ABG Base Excess -6 L -1 -7 L 11/13/24 11/14/24 04:13 04:35 ABG pH 7.42 D 7.46 H ABG pCO2 48 40 ABG pO2 79 L 106 D ABG HCO3 31 H 29 H ABG O2 Saturation 97 99 H ABG Base Excess 6 H 4 H Quality Measures Quality Measures none Advance care planning discussed with:: patient Assessment & Plan Assessment Current Active Medications: Generic Name Dose Route Start Last Admin Trade Name Freq PRN Reason Stop Dose Admin Acetaminophen 650 mg 11/11/24 05:17 Acetaminophen 325 Mg Tablet PO 12/11/24 05:16 Q6H PRN Fever >100.5 Albuterol/Ipratropium 3 ml 11/11/24 07:00 11/14/24 18:36 Albuterol/Ipratropium (Duoneb) Rt Poonam 3 Ml Nebu INH 12/11/24 06:59 3 ml Q4HRRT RAYO Administration Aspirin 81 mg 11/11/24 09:00 11/14/24 11:39 Aspirin 81 Mg Chew NG 12/11/24 08:59 81 mg QDAY RAYO Administration Atorvastatin Calcium 40 mg 11/11/24 21:00 11/14/24 20:01 Atorvastatin Calcium 20 Mg Tablet NG 12/11/24 20:59 40 mg HS RAYO Administration Calcium Carbonate 600 mg 11/11/24 09:00 11/14/24 20:01 Calcium Carbonate 600 Mg Tablet NG 12/11/24 08:59 600 mg BID RAYO Administration Clopidogrel Bisulfate 75 mg 11/14/24 09:00 11/14/24 11:39 Clopidogrel Bisulfate 75 Mg Tablet PO 12/14/24 08:59 75 mg QDAY RAYO Administration Dextrose 25 ml 11/12/24 06:24 Dextrose 50%-Water Inj 50 Ml Syringe IV 12/12/24 06:23 Q15MIN PRN BG 50-70 responsive npo pt Dextrose 50 ml 11/12/24 06:24 Dextrose 50%-Water Inj 50 Ml Syringe IV 12/12/24 06:23 Q15MIN PRN BG <50 OR BG <70 & pt unresponsive Famotidine 20 mg 11/11/24 09:00 11/14/24 11:36 Famotidine Inj 10 Mg/Ml Vial 2 Ml IVP 12/11/24 08:59 20 mg QDAY RAYO Administration Protocol Glucagon 1 mg 11/12/24 06:24 Glucagon Inj 1 Mg Vial IM Q15MIN PRN BG <70, and no IV access Hydralazine HCl 10 mg 11/11/24 05:30 Hydralazine Inj 20 Mg/Ml Vial IVP 12/11/24 05:29 Q6H PRN SBP>180 Fentanyl Citrate 2,500 mcg in 250 mls @ 2.5 mls/hr 11/11/24 04:27 11/14/24 17:20 Sublimaze Inj 2,500 Mcg/250 Ml Bag IV 11/16/24 04:06 125 mcg/hr .Q24H PRN 12.5 mls/hr PER PROTOCOL Titration Protocol 25 MCG/HR Propofol 1,000 mg in 100 mls @ 2.072 mls/hr 11/11/24 04:27 11/13/24 08:48 Diprivan Ivpb IV 12/11/24 03:37 0 mcg/kg/min .Q24H PRN 0 mls/hr Per Protocol Titration Protocol 5 MCG/KG/MIN Ceftriaxone Sodium/Dextrose 1 gm in 50 mls @ 100 mls/hr 11/11/24 11:27 11/14/24 18:42 Rocephin/D5w 1gm Iv Premix IV 11/18/24 11:26 Infused QDAY RAYO Infusion Norepinephrine/Dextrose 8 mg in 250 mls @ 6.476 mls/hr 11/11/24 16:05 11/13/24 14:59 Levophed In D5w 8mg/250ml IV 12/11/24 16:04 0 mcg/kg/min .Q24H PRN 0 mls/hr PER PROTOCOL Titration Protocol 0.05 MCG/KG/MIN Dexmedetomidine/Sodium Chloride 400 mcg in 100 mls @ 3.375 mls/hr 11/13/24 09:53 11/14/24 19:27 Precedex Ivpb IV 12/13/24 09:42 1.4 mcg/kg/hr .Q24H PRN 23.625 mls/hr Per PROTOCOL Administration Protocol 0.2 MCG/KG/HR Heparin Sodium/Dextrose 25,000 unit in 250 mls @ 8.1 mls/hr 11/13/24 15:15 11/14/24 15:51 Heparin In D5w Ivpb IV 11/27/24 15:14 12 units/kg/hr .Q24H RAYO 8.1 mls/hr Titration Protocol 12 UNITS/KG/HR Albumin Human 25 gm in 100 mls @ 100 mls/min 11/14/24 08:47 11/14/24 18:41 Albuminar-25 Ivpb IV Infused PRN PRN Infusion DIALYSIS Amiodarone HCl/Dextrose 360 mg in 200 mls @ 16.667 mls/hr 11/14/24 17:26 11/14/24 16:50 Nexterone Ivpb IV 11/15/24 17:25 16.667 mls/hr .Q12H RAYO Administration Methylprednisolone Sodium Succinate 60 mg 11/11/24 09:00 11/14/24 11:37 Methylprednisolone Sod Succ 40 Mg Vial IV 11/18/24 08:59 60 mg QDAY RAYO Administration Metoprolol Tartrate 25 mg 11/14/24 11:30 11/14/24 20:01 Metoprolol Tartrate 25 Mg Tablet NG 12/14/24 11:29 25 mg BID RAYO Administration Midodrine 10 mg 11/11/24 22:00 11/14/24 13:06 Midodrine 5 Mg Tablet NG 12/11/24 21:59 Not Given TID RAYO Ondansetron HCl 4 mg 11/11/24 05:17 Ondansetron Inj 2 Mg/Ml Inj 2 Ml IVP 12/11/24 05:16 Q6H PRN NAUSEA OR VOMITING Protocol Patiromer 8.4 gm 11/13/24 10:45 11/14/24 11:43 Patiromer Calcium 8.4 Gm Packet (Non-Form) PO 12/13/24 10:44 8.4 gm DAILY RAYO Administration Pharmacy Consult 1 each 11/11/24 05:27 Pharmacy Renal Dose Adjustment 1 Ea XX 12/11/24 05:26 PRN PRN CONSULT Sevelamer Carbonate 0.8 gm 11/14/24 08:00 11/14/24 16:48 Sevelamer Carbonate 0.8 Gm Packet (Non-Formulary) NG 12/14/24 07:59 0.8 gm TIDWM RAYO Administration Sodium Chloride 3 ml 11/11/24 04:43 Sodium Chloride Rt Poonam 0.9% 3 Ml Nebu INH 12/11/24 04:42 PRN PRN SOLN Plan The patient is a 74-year-old female with a history of CHF, CAD with multiple MIs and stents, COPD on 3 L home oxygen, ESRD on hemodialysis, and atrial fibrillation with pacemaker, who presented on 11/11/24 via EMS with acute shortness of breath. At home, she was hypoxic with oxygen saturation in the 80s and received DUONEB during transport. In the ED, she was saturating at 84% on high-flow CPAP, hypertensive to 200/76 mmHg, and altered. ABG demonstrated acute hypercapnic and hypoxic respiratory failure (pH 7.14, pCO? 71, pO? 116). CXR showed right lower lobe pneumonia. Labs revealed leukocytosis, elevated BNP (2005), elevated D-dimer, mild troponin rise (0.046), and creatinine consistent with ESRD. She was intubated, given METHYLPREDNISOLONE, fluids, CEFIXIME, and VANCOMYCIN, and admitted to the ICU. 1. Acute hypoxic respiratory failure secondary to chronic obstructive lung disease and acute decompensated congestive heart failure, flash pulmonary edema requiring mechanical ventilation. 2. Acute non-ST segment elevation myocardial infarction with persistent ST segment changes, chronically elevated due to left ventricular inferobasal and posterobasal aneurysm. 3. Coronary artery disease status post multivessel stent placement. 4. End-stage renal disease on hemodialysis. 5. Severe chronic obstructive lung disease. 6. Paroxysmal atrial fibrillation. 7. Vtach She has a known respiratory failure on home 3 L oxygen likely from COPD and CHF. Echo in 2003 showing EF 45%, mild hypokinesis of basal septal/inferior wall as well as mild diastolic dysfunction, in addition to mild to severe mitral annular calcification, moderate MR, trace AI/PI, mild TR. Additionally, EKG from 2023 showed atrial fibrillation which appear paroxysmal. Today she appeared to be having recurrent wide-complex tachycardia, suggestive of V. tach. Additionally, she has been going into SVT and tachyarrhythmia during extubation, which has been deferred at this point. Troponin continue to elevated, currently around 4.0. As such, she likely has underlying ischemic cardiomyopathy possibly leading to recurrent arrhythmia, and she has received multiple doses of ADENOSINE for this. Recommendations include: Continue HEPARIN GGT, PLAVIX and ASPIRIN. Continue AMIODARONE drip for tachyarrhythmia. Continue cardiac stratification. Continue ventilation support and sedation. Maintain K > 4.0 and Mg > 2.0. Will plan on right heart cath on Thursday when she is slightly more hemodynamically stable. Continue MIDODRINE and VASOPRESSORS as needed to maintain MAP above 65. Continue treating pneumonia. Case was discussed with attending physician, Dr. Escudero. Richard Gan, DO PGY II This document was transcribed using voice recognition technology. Minor inaccuracies may be present.
[2024-11-14 22:20] LABS: Partial Thromboplastin Time 49.0 Seconds (22.0-36.0)
[2024-11-14] MEDS: HEPARIN SOD INJ 5000 UNIT/ML VIAL 2000 UNIT IVP (22:44)
[2024-11-15] VITALS (59 sets, daily range): BP systolic 88–149; BP diastolic 41–81; PULSE 67–87; RESP 3–23; TEMP 35.9–36.3; O2SAT 90–100; BMI 24.0
[2024-11-15] MEDS: Heparin/D5w 25K 250 ML Ivpb 25,000 UNIT/250 ML BAG 9.45 UNIT IV (00:22)
[2024-11-15] MEDS: DEXMEDETOMIDINE 400 MCG IVPB 400 MCG/100 ML BAG 23.625 MCG IV ×5 (00:23→19:49)
[2024-11-15] MEDS: ALBUTEROL/IPRATROPIUM (Duoneb) RT SOL 3 ML NEBU INH ×6 (02:05→22:45)
[2024-11-15] MEDS: AMIODARONE 360 MG IVPB 360 MG/200 ML BAG 16.667 MG IV (05:00)
[2024-11-15 05:14] LABS: Base Excess 5 (-3-3); HCO3 29 mEq/L (20-26); Inspired Oxygen, FIO2 35 %; O2 Saturation 99 % (91-98); PCO2 39 mmHg (32.0-48.0); PO2 100 mmHg (83-108); pH, Arterial 7.47 (7.35-7.45)
[2024-11-15 05:24] LABS: Allen Test Performed/OK; Puncture Site Right Brachial
[2024-11-15 06:08] LABS: Basophils # (Auto) 0.0 Thou/mm3 (0.0-0.2); Basophils % (Auto) 0 % (0-2.5); Eosinophils # (Auto) 0.0 Thou/mm3 (0.0-0.5); Eosinophils % (Auto) 0 % (0-10); Hematocrit 26.2 % (36.0-46.0); Immature Granulocytes Auto 0.08 Thou/mm3 (0.00-0.00); Lymphocytes # (Auto) 0.6 Thou/mm3 (1.0-4.8); Lymphocytes % (Auto) 9 % (10-50); Mean Corpuscular HGB Conc 32.8 g/dl (31.0-37.0); Mean Corpuscular Hemoglobin 29.3 pg (25.0-35.0); Mean Corpuscular Volume 89 fL (80-100); Monocytes # (Auto) 0.6 Thou/mm3 (0.0-0.8); Monocytes % (Auto) 9 % (0-12); Neutrophils # (Auto) 5.4 Thou/mm3 (1.8-7.7); Neutrophils % (Auto) 80 % (37-80); Nucleated Red Blood Cell # 0.00 Thou/mm3 (0.00-0.00); Nucleated Red Blood Cell % 0 /100 WBC (0); Platelet Count 97 Thou/mm3 (140-440); RDW Standard Deviation 59.1 fL (36.4-46.3); Red Blood Count 2.94 Miln/mm3 (4.00-5.20); White Blood Count 6.8 Thou/mm3 (3.6-11.0)
[2024-11-15] MEDS: fentaNYL CIT INJ 50 mCg/ML AMP 2ML 25 MCG IVP (06:19)
[2024-11-15 06:39] LABS: Hemoglobin 8.6 g/dL (12.0-16.0)
[2024-11-15 06:43] LABS: INR 1.1 (0.9-1.3); Prothrombin Time 11.6 Seconds (9.0-12.2)
[2024-11-15 06:52] LABS: Partial Thromboplastin Time 100.3 Seconds (22.0-36.0)
--- NOTE | 2024-11-15 07:05 | XR_ITS ---
Examination: AP chest single view Technique one AP portable semiupright chest single view Date and time: November 15, 2024, 0719 hours hours COMPARISON: November 13, 2024 INDICATIONS: Shortness of breath today FINDINGS: Mild heart failure. Moderate enlargement cardiac contour with prominent vascular congestion Bibasilar pneumonia. Left internal jugular central line tip SVC satisfactory position Tracheal tube tip 6.7 cm above [place] Orogastric tube in stomach satisfactory position Cardiac leads satisfactory position IMPRESSION: Mild heart failure. Bibasilar pneumonia again noted
[2024-11-15 07:07] LABS: Albumin, Serum 3.4 gm/dL (3.4-4.8); Anion Gap 15 (7-16); BUN/Creatinine Ratio 6 Ratio (12-20); Blood Urea Nitrogen 27 mg/dL (9-23); Calcium 8.1 mg/dL (8.3-10.6); Calcium (Corrected) 8.6 mg/dL (8.5-10.1); Carbon Dioxide 25.3 mMol/L (20.0-31.0); Chloride 90 mMol/L (98-107); Creatinine (Component) 4.2 mg/dL (0.6-1.3); Estimated Creatinine Clearance 11.2 mL/min (>60); Glucose 121 mg/dL (74-106); Osmolality,Calculated 266 (275-295); Phosphorous 6.5 mg/dL (2.4-5.1); Potassium 4.3 mMol/L (3.4-5.1); Sodium 130 mMol/L (136-145); eGFR 11 See Note
--- NOTE | 2024-11-15 07:41 | PC.SS ---
[employer] attempted phone call with patient's friend, Luis Bose ; no response [employer] left voicemail requesting return call.
[2024-11-15] MEDS: fentaNYL 2,500 MCG/250 ML BAG 2,500 MCG/250 ML BAG 12.5 MCG IV (08:41)
--- NOTE | 2024-11-15 09:13 | ESPR_ITS ---
Documentation for date of: 11/15/24 Subjective Subjective Interval history: Reason for consult: ESRD, acute respiratory failure, need for dialysis History of present illness: Mirella Grewal is a 74-year-old F with a PMH of CHF, coronary artery disease with multiple MIs s/p stents, COPD on 3 L home oxygen, ESRD on hemodialysis, Thursday, Thursday, , Thursday, and A-fib with pacemaker, who was brought in by EMS with a chief complaint of acute SOB. Per Internal Medicine team note, the patient called EMS due to SOB, and was saturating around 80% at home. She was given DuoNebs on the way to hospital and, when she presented to the ED, was saturating at 84% on high-flow CPAP. At this point, she was already altered, and was intubated. Internal Medicine team could not obtain further history due to patient already being intubated during their evaluation. Of note, patient has multiple prior hospitalizations for similar presentations of acute hypoxic respiratory failure including in November 2023 and September 2023. In the ED, vitals showed: BP 200/76 HR 79 RR 20 Temp 98.6 SpO2 84% on high flow CPAP, ED Course: CBC showed high WBC 13.5, and low Hgb 11.1 (MCV 96, RDW 63.4). Coagulation panel showed critically elevated D-dimer 2630 but was otherwise within normal limits. ABG showed normal pH 7.37, normal pCO2 42, normal PO2 97, and normal HCO3 24. CMP showed high BUN 39, critically elevated creatinine 6.4, critically low EGFR 6, high lactic acid 4.1, high blood glucose 184, low corrected calcium 7.7, c ritically elevated troponin I 0.046, critically elevated BNP 2005, high TSH 6.61, and low free T4 0.84. UA showed turbid orange urine with a basic pH of 8.0. It also showed 2+ urine protein, 2+ urine blood, high urine RBC 502, high urine WBC 1255, high urine squamous epithelial cells 29, but no urine bacteria. UDS was negative. Rapid RSV was negative. Imaging: Chest x-ray showed moderate congestive heart failure with prominent vascular congestion and perihilar basilar edema. Head CT was unremarkable. Chest CT showed bilateral thyroid nodules, mild heart failure with moderate enlargement of the cardiac contour, bibasilar pneumonia, numerous bilateral positioned metastatic pulmonary nodules, small bilateral pleural effusions, and cholelithiasis. EKG showed old IN. In the ED, patient was received methylprednisone 125 Mg IV x 1, bolus fluid 1 L at the rate 250 cc/h, cefixime 2 g IV x 1, and was started on vancomycin. The patient was intubated and admitted to ICU for further management of acute hypoxic hypercapnic respiratory failure secondary to COPD exacerbation. We, the nephrology team, were consulted for the patient's combined respiratory and metabolic acidosis and need for urgent hemodialysis due to ESRD status. Cardiology is also following. Interval History 11/12/2024: No overnight events. Patient seen and examined at bedside; she remains intubated and unable to respond to questioning. Patient could not receive hemodialysis yesterday due to being unable to be moved up to ICU. WBC increased from 13.5 to 16.5 and Hgb decreased from 11.1 to 10.0. Other notable worsening labs include Na 131, K 6.8, anion gap 18, BUN increased from 39 to 61, creatinine increased from 6.4 to 7.9, phosphorus 7.8, and troponins uptrended from 0.089 to 0.587. CXR shows new significant bibasilar pneumonia. Hemodialysis for 3.5 hours planned for today. 11/13/2024: Patient seen and examined at bedside in ICU. she remains intubated, however sedation has been decreased. 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 K 5.6 from 6.8, BUN 42 from 61, Cr 4.8 from 7.9. WBC downtrending 10 from 16. BP 107/42, CXR with bibasilar pna, significant RLL consolidation. continues on CTX 1 gm. NO HD today. 11/14/2024: No overnight events. Patient seen and examined at bedside. She is no longer intubated but is only able to mouth words without making any sounds, making it difficult to ask her how she is doing or if she has any new complaints. Labs showed Hgb 9.5, Plt Count 106, APTT 54.2, ABG pH 7.46, Na 130, K 5.0, Cl 87, BUN 52, creatinine 5.9, eGFR 7, corrected Ca 8.5, Phos 7.4, and troponin I 3.023 (downtrending). EKG showed atrial fibrillation with aberrant conduction or VPCs, moderate intraventricular conduction delay, and ST deviation with marked T-wave abnormality (possible lateral ischemia but cardiology believes it is old). Patient continues to receive IV Rocephin for her pneumonia with right lower lobe consolidation seen on 11/13 CXR. An echocardiogram and repeat CXR have been ordered. Patient will be given Epogen and will be receiving HD today. 11/15/2024: Patient seen and examined at bedside in ICU.patient failed extubation attempt yesterday. recurrent tachyarrythmia, reintubated, plan for cath on thursday with CARDS. Pt is intubated not responding to voice. Cr 4.2 BUN 27 from 52 phos 6.5. BP 132/61. No HD today. Exam Vital Signs Temp Pulse Resp BP Pulse Ox O2 Del Method O2 Flow Rate 97.0 F 77 22 H 118/57 L 100 Mechanical Ventilation 80 11/15/24 04:00 11/15/24 07:00 11/15/24 05:58 11/15/24 07:00 11/15/24 07:00 11/14/24 16:00 11/11/24 04:35 FiO2 35 11/15/24 05:58 Narrative Exam General: Pt is intubated, sedated Skin: Warm, dry, intact some skin break down on LUE wrist fistula Head: Normocephalic, atraumatic. Cardiovascular: Regular rate and rhythm, no murmur, no JVD or carotid bruits. +S1/S2. Respiratory: Decreased breath sounds at the base. No crackles, no wheezing. No accessory muscle use. Gastrointestinal: Soft, nontender, non-distended, no palpable masses. Extremities: Symmetrical, no significant deformities. RUE hand edema> LUE edema cool to touch. 2+ dorsal pedalis, UE in restraints. Neuro: not assessed. Objective Labs 11/16/24 04:39 11/15/24 05:10 Labs: Laboratory Results - last 24 hr 11/14/24 11/14/24 11/15/24 14:04 21:57 04:58 WBC RBC Hgb Hct MCV MCH MCHC RDW Std Deviation Plt Count Neut % (Auto) Lymph % (Auto) [place] % (Auto) Eos % (Auto) Baso % (Auto) Neut # (Auto) Lymph # (Auto) [place] # (Auto) Eos # (Auto) Baso # (Auto) Immature Gran # (Auto) Absolute Nucleated RBC Immature Gran % Nucleated RBC % PT INR APTT 51.5 H 49.0 H Puncture Site Right Brachial ABG pH 7.47 H ABG pCO2 39 ABG pO2 100 ABG HCO3 29 H ABG O2 Saturation 99 H ABG Base Excess 5 H FiO2 35 Sodium Potassium Chloride Carbon Dioxide Anion Gap BUN Creatinine Estim Creat Clear Calc eGFR BUN/Creatinine Ratio Glucose Calculated Osmolality Calcium Corrected Calcium Phosphorus Albumin 11/15/24 05:10 WBC 6.8 RBC 2.94 L Hgb 8.6 L Hct 26.2 L MCV 89 MCH 29.3 MCHC 32.8 RDW Std Deviation 59.1 H Plt Count 97 L Neut % (Auto) 80 Lymph % (Auto) 9 L [place] % (Auto) 9 Eos % (Auto) 0 Baso % (Auto) 0 Neut # (Auto) 5.4 Lymph # (Auto) 0.6 L [place] # (Auto) 0.6 Eos # (Auto) 0.0 Baso # (Auto) 0.0 Immature Gran # (Auto) 0.08 H Absolute Nucleated RBC 0.00 Immature Gran % 1 H Nucleated RBC % 0 PT 11.6 INR 1.1 APTT 100.3 H* D Puncture Site ABG pH ABG pCO2 ABG pO2 ABG HCO3 ABG O2 Saturation ABG Base Excess FiO2 Sodium 130 L Potassium 4.3 D Chloride 90 L Carbon Dioxide 25.3 Anion Gap 15 BUN 27 H Creatinine 4.2 H* D Estim Creat Clear Calc 11.2 L eGFR 11 L* BUN/Creatinine Ratio 6 L Glucose 121 H Calculated Osmolality 266 L Calcium 8.1 L Corrected Calcium 8.6 Phosphorus 6.5 H Albumin 3.4 ABG Interpretation ABG results: 11/11/24 11/11/24 11/12/24 04:01 07:38 04:55 ABG pH 7.14 L* 7.37 D 7.26 L D ABG pCO2 71 H* 42 D 44 ABG pO2 116 H 97 95 ABG HCO3 24 24 20 ABG O2 Saturation 97 99 H 98 ABG Base Excess -6 L -1 -7 L 11/13/24 11/14/24 11/15/24 04:13 04:35 04:58 ABG pH 7.42 D 7.46 H 7.47 H ABG pCO2 48 40 39 ABG pO2 79 L 106 D 100 ABG HCO3 31 H 29 H 29 H ABG O2 Saturation 97 99 H 99 H ABG Base Excess 6 H 4 H 5 H Quality Measures Quality Measures none Advance care planning discussed with:: other (no one at bedside ) Assessment & Plan Assessment Current Active Medications: Generic Name Dose Route Start Last Admin Trade Name Freq PRN Reason Stop Dose Admin Acetaminophen 650 mg 11/11/24 05:17 Acetaminophen 325 Mg Tablet PO 12/11/24 05:16 Q6H PRN Fever >100.5 Albuterol/Ipratropium 3 ml 11/11/24 07:00 11/15/24 05:58 Albuterol/Ipratropium (Duoneb) Rt Poonam 3 Ml Nebu INH 12/11/24 06:59 3 ml Q4HRRT RAYO Administration Aspirin 81 mg 11/11/24 09:00 11/14/24 11:39 Aspirin 81 Mg Chew NG 12/11/24 08:59 81 mg QDAY RAYO Administration Atorvastatin Calcium 40 mg 11/11/24 21:00 11/14/24 20:01 Atorvastatin Calcium 20 Mg Tablet NG 12/11/24 20:59 40 mg HS RAYO Administration Calcium Carbonate 600 mg 11/11/24 09:00 11/14/24 20:01 Calcium Carbonate 600 Mg Tablet NG 12/11/24 08:59 600 mg BID RAYO Administration Clopidogrel Bisulfate 75 mg 11/14/24 09:00 11/14/24 11:39 Clopidogrel Bisulfate 75 Mg Tablet PO 12/14/24 08:59 75 mg QDAY RAYO Administration Dextrose 25 ml 11/12/24 06:24 Dextrose 50%-Water Inj 50 Ml Syringe IV 12/12/24 06:23 Q15MIN PRN BG 50-70 responsive npo pt Dextrose 50 ml 11/12/24 06:24 Dextrose 50%-Water Inj 50 Ml Syringe IV 12/12/24 06:23 Q15MIN PRN BG <50 OR BG <70 & pt unresponsive Famotidine 20 mg 11/11/24 09:00 11/14/24 11:36 Famotidine Inj 10 Mg/Ml Vial 2 Ml IVP 12/11/24 08:59 20 mg QDAY RAYO Administration Protocol Glucagon 1 mg 11/12/24 06:24 Glucagon Inj 1 Mg Vial IM Q15MIN PRN BG <70, and no IV access Hydralazine HCl 10 mg 11/11/24 05:30 Hydralazine Inj 20 Mg/Ml Vial IVP 12/11/24 05:29 Q6H PRN SBP>180 Fentanyl Citrate 2,500 mcg in 250 mls @ 2.5 mls/hr 11/11/24 04:27 11/15/24 08:41 Sublimaze Inj 2,500 Mcg/250 Ml Bag IV 11/16/24 04:06 125 mcg/hr .Q24H PRN 12.5 mls/hr PER PROTOCOL Administration Protocol 25 MCG/HR Propofol 1,000 mg in 100 mls @ 2.072 mls/hr 11/11/24 04:27 11/13/24 08:48 Diprivan Ivpb IV 12/11/24 03:37 0 mcg/kg/min .Q24H PRN 0 mls/hr Per Protocol Titration Protocol 5 MCG/KG/MIN Ceftriaxone Sodium/Dextrose 1 gm in 50 mls @ 100 mls/hr 11/11/24 11:27 11/14/24 18:42 Rocephin/D5w 1gm Iv Premix IV 11/18/24 11:26 Infused QDAY RAYO Infusion Norepinephrine/Dextrose 8 mg in 250 mls @ 6.476 mls/hr 11/11/24 16:05 11/13/24 14:59 Levophed In D5w 8mg/250ml IV 12/11/24 16:04 0 mcg/kg/min .Q24H PRN 0 mls/hr PER PROTOCOL Titration Protocol 0.05 MCG/KG/MIN Dexmedetomidine/Sodium Chloride 400 mcg in 100 mls @ 3.375 mls/hr 11/13/24 09:53 11/15/24 06:00 Precedex Ivpb IV 12/13/24 09:42 1.4 mcg/kg/hr .Q24H PRN 23.625 mls/hr Per PROTOCOL Titration Protocol 0.2 MCG/KG/HR Heparin Sodium/Dextrose 25,000 unit in 250 mls @ 8.1 mls/hr 11/13/24 15:15 11/15/24 08:56 Heparin In D5w Ivpb IV 11/27/24 15:14 11 units/kg/hr .Q24H RAYO 7.425 mls/hr Titration Protocol 12 UNITS/KG/HR Albumin Human 25 gm in 100 mls @ 100 mls/min 11/14/24 08:47 11/14/24 18:41 Albuminar-25 Ivpb IV Infused PRN PRN Infusion DIALYSIS Amiodarone HCl/Dextrose 360 mg in 200 mls @ 16.667 mls/hr 11/14/24 17:26 11/15/24 05:00 Nexterone Ivpb IV 11/15/24 17:25 16.667 mls/hr .Q12H RAYO Administration Metoprolol Tartrate 25 mg 11/14/24 11:30 11/14/24 20:01 Metoprolol Tartrate 25 Mg Tablet NG 12/14/24 11:29 25 mg BID RAYO Administration Midodrine 10 mg 11/11/24 22:00 11/15/24 05:03 Midodrine 5 Mg Tablet NG 12/11/24 21:59 Not Given TID RAYO Ondansetron HCl 4 mg 11/11/24 05:17 Ondansetron Inj 2 Mg/Ml Inj 2 Ml IVP 12/11/24 05:16 Q6H PRN NAUSEA OR VOMITING Protocol Patiromer 8.4 gm 11/13/24 10:45 11/14/24 11:43 Patiromer Calcium 8.4 Gm Packet (Non-Form) PO 12/13/24 10:44 8.4 gm DAILY RAYO Administration Pharmacy Consult 1 each 11/11/24 05:27 Pharmacy Renal Dose Adjustment 1 Ea XX 12/11/24 05:26 PRN PRN CONSULT Sevelamer Carbonate 0.8 gm 11/14/24 08:00 11/14/24 16:48 Sevelamer Carbonate 0.8 Gm Packet (Non-Formulary) NG 12/14/24 07:59 0.8 gm TIDWM RAYO Administration Sodium Chloride 3 ml 11/11/24 04:43 Sodium Chloride Rt Poonam 0.9% 3 Ml Nebu INH 12/11/24 04:42 PRN PRN SOLN Plan Mirella DillardFani Grewal is a 74-year-old F with a PMH of CHF, coronary artery disease with multiple MIs s/p stents, COPD on 3 L home oxygen, ESRD on hemodialysis, Thursday, Thursday, , Thursday, and A-fib with pacemaker, who was brought in by EMS with a chief complaint of acute SOB. The patient was intubated and admitted to ICU for further management of acute hypoxic hypercapnic respiratory failure secondary to COPD exacerbation. We, the nephrology team, were consulted for the patient's combined respiratory and metabolic acidosis and need for urgent hemodialysis due to ESRD status.pt is intubated. NO hd today #Combined respiratory and metabolic acidosis #ESRD on HD (Thursday, Thursday, , Thursday) Admission ABG showed pH 7.14 and pCO2 71, elevated lactic acid 4.1 Admission creatinine 6.4 (baseline: possibly 4.8-4.9), BUN 39, eGFR 6 11/12/24: worsening kidney function and toxic buildup due to no HD yesterday, creatinine 7.9, BUN 61, K 6.8, phosphorus 7.8 11/12/24: received HD 11/13/24: Cr 4.8 from 7.9, BUN 42 from 61, K 5.6 from 6.8 (improved kidney function after 11/12 HD) 11/14/24: Cr 5.9 from 4.8, BUN 52 from 42, K 5.0 from 5.6, Hgb 9.5, Plt Count 106, ABG pH 7.46 from 7.42, phosphorus 7.4 from 5.8 11/15/24: Cr 4.8 from 5.9, BUN 27 from 52, K 4.3, BP soft 90s /40s Patient has a left-sided fistula and receives her HD on / PLAN -HOLD HD -Strict I's & O's -Avoid nephrotoxic medications 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, requires vascular surgery follow up Fistula remains patent and thrill is palpable -Follow-up with vascular surgery -Continue to monitor #Acute hypoxic respiratory failure - no longer intubated #CAP #Possible CHF exacerbation, likely 2/2 volume overload in the setting of ESRD #Pleural Effusion Critically elevated BNP 2005 with elevated troponin I 0.046 CXR showed moderate congestive heart failure with prominent vascular congestion and perihilar basilar edema Chest CT showed mild heart failure with moderate enlargement of the cardiac contour with small bilateral pleural effusions 11/13 CXR showed bibasilar pneumonia with significant RLL consolidation 8/10 EKG showed a change from sinus rhythm to atrial fibrillation with intermittent pacemaker rhythm 11/14 troponin downtrended to 3.023 from 4.088 Plan: -CARDS consulted: reccomend cont pressors with map>65 -Per cardiology recommendations, continue amiodarone, atorvastatin, and methylprednisolone (and start diltiazem if patient develops tachycardia) -Per primary care team, continue IV Rocephin #SVT #Recurrent Tachyarrythmia #Hx of A-fib, on Eliquis and s/p pacemaker - cards consulted - cards cath thursday if hemodynamically stable - managment per ICU. #Electrolyte abnormalities #Hypocalcemia, likely 2/2 ESRD status (resolving) #Mild hyponatremia #Hypochloremia Treatment Plan -Continue NG calcium carbonate BID per primary care team -Monitor electrolyte levels, correct as needed -Continue Veltassa to treat possible hyperkalemia -Continue sevelamer to treat possible hyperphosphatemia #Normocytic anemia, likely 2/2 ESRD status #Thrombocytopenia Admission Hgb 11.1 (MCV 96, RDW 63.4) 11/12/24: Hgb dropped to 10.0 -s/p Epoetin 10,000 U x1 11/14/24: Hgb 9.5, platelet count down to 106 from 134 Treatment Plan -Monitor H&H, transfuse if Hgb<7 -Epoetin #Other medical problems #Acute encephalopathy likely 2/2 CO2 narcolepsy in the setting of COPD exacerbation #Acute hypoxic hypercapnic respiratory failure likely 2/2 CHF exacerbation vs. COPD exacerbation vs. both #COPD exacerbation #Community-acquired pneumonia #Leukocytosis- downtrending #CAD s/p stents -Continue management per primary care team Plan discussed with nephrology attending Dr. Danica Bateman MD Internal Medicine PGY-1 Attending Provider Attestation/Addendum Patient seen and examined with resident physician Dr. Bateman. Note reviewed, agree with findings and recommendations. Patient currently seen in ICU. On ventilator. Next dialysis scheduled for tomorrow Remains on ventilator. Spoke to ICU team.
--- NOTE | 2024-11-15 09:35 | PC.SS ---
CAMPUS RECRUITER conducted contact with patient's surrogate medical decision maker, Jose Bose. Surrogate medical decision maker at bedside visiting patient. CAMPUS RECRUITER confirmed surrogate decision maker's contact number and address: [address] [place] [address]. Mr. Bose confirmed with CAMPUS RECRUITER that patient is . Patient has a adopted son, but patient does not keep in contact with son. Mr. Bose was a friend of the patient's spouse. Following spouse expiration, Mr Bose; would check in on the patient. Mr. Bose owns property next to the patient's residence. Mr. Bose acknowledged designation as patient's surrogate medical decision maker. Mr. Bose assurred CAMPUS RECRUITER availability by phone if medical team needs to initiate contact. Bedside nurse to provide Mr. Bose with medical update.
[2024-11-15] MEDS: PATIROMER CALCIUM 8.4 GM PACKET (NON-FORM) PO (10:16)
[2024-11-15] MEDS: FAMOTIDINE INJ 10 MG/ML VIAL 2 ML 20 MG IVP (10:16)
[2024-11-15] MEDS: SEVELAMER CARBONATE 0.8 GM PACKET (NON-FORMULARY) NG ×3 (10:16→16:54)
[2024-11-15] MEDS: cefTRIAXone/D5w 1gm IV premix 1 GM/50 ML BAG IV (10:17)
[2024-11-15] MEDS: CALCIUM CARBONATE 600 MG TABLET NG ×2 (10:18→20:23)
[2024-11-15] MEDS: METOPROLOL TARTRATE 25 MG TABLET NG ×2 (10:18→20:24)
[2024-11-15] MEDS: ASPIRIN 81 MG CHEW NG (10:18)
[2024-11-15] MEDS: CLOPIDOGREL BISULFATE 75 MG TABLET PO (10:25)
[2024-11-15] MEDS: MIDODRINE 5 MG TABLET 10 MG NG ×2 (13:47→22:39)
[2024-11-15 15:09] LABS: Partial Thromboplastin Time 55.4 Seconds (22.0-36.0)
--- NOTE | 2024-11-15 17:53 | ESPR_ITS ---
Documentation for date of: 11/15/24 Subjective Subjective Interval history: The patient is a 74-year-old female with significant past medical history of CHF, coronary artery disease with multiple MIs s/p stents, COPD on 3 L home oxygen, ESRD on hemodialysis, Thursday, Thursday, , Thursday, A-fib with pacemaker, brought in by EMS with chief complaint of acute SOB. The patient called EMS due to SOB, and she was saturating on 80s at her home. She was given DuoNeb on the way to hospital, and when she presented to ED, her saturation was 84 on high flow CPAP. She was already altered, and was intubated. Further history were unobtainable, as patient was already intubated during my evaluation. In the ED her vitals were significant for a blood pressure of 200/76, pulse 79, RR 20, labs are significant for white count 13.5, RBC 3.88, hemoglobin 11.1, D- dimer 2630, ABG revealed pH of 7.14, pCO2 71, pO2 116, bicarb 24, sodium 135, potassium 4.6, BUN 39, creatinine 6.4, lactic acid 4.1, corrected calcium 7.7, magnesium 2.2, AST/ALT/ALP less than 10, less than 10/05/2027 respectively. Ammonia was 17, troponin 0.046, CRP less than 0.5, BNP 2006, lipid panel revealed LDL 116, lipase 68, TSH 6.61, free T4 0.84. UA revealed orange urine, 2+ protein, 2+ blood, leukocyte Estrace positive, RBC 502, WBC 1255, chest x-ray revealed right lower lobe pneumonia, EKG revealed old OK. The patient received methylprednisone 125 Mg IV x 1, bolus fluid 1 L at the rate 250 cc/h, cefixime 2 g IV x 1, and started on vancomycin. The patient was intubated and admitted to ICU for further management of acute hypoxic hypercapnic respiratory failure secondary to COPD exacerbation. 11/11/2024: Patient is sedated and on mechanical ventilator. Most of the history is taken from the chart review and from the nurse at the bedside. Patient supposedly lives alone and developed shortness of breath, for which she called the EMS. By the time EMS went her home she was severely short of breath for which she was given DuoNebs and was kept on CPAP following which she was brought to the hospital where she was given steroids, sedated and intubated. Later central line was placed. No acute overnight events. Vitals are stable and patient is on propofol and fentanyl drip without any vasopressor support. Started on methylprednisolone 60 Mg IV once daily, ceftriaxone and azithromycin. Repeat ABG after the intubation is within normal limits. Will continue mechanical ventilation for now and monitor the patient. Later in the evening, patient is found to be mildly hypotensive for which low-dose Levophed was started and patient was given a dose of midodrine 10 Mg through orogastric tube. 11/12/2024: Patient is seen and examined at bedside in the ICU. No acute overnight events. Sedated and on mechanical ventilator, VC/AC mode with tidal volume 380, PEEP 5, FiO2 30% and saturating around 95%. Vitals are stable and patient is mildly hypotensive, started on Levophed which was stopped around 7 AM this morning, maintain blood pressures only on minimal doses of Levophed 0.05 mcg/kg/min. Labs done this morning showed mild leukocytosis, sodium 131, potassium 5.5, BUN 61, creatinine 7.9, bicarb 19.2, phosphorus 7.8. ABG showed metabolic acidosis Patient missed her dialysis session yesterday which was started this morning and Levophed is restarted to support the blood pressure during dialysis. Tolerated dialysis well on 2 L of fluid is taken. Patient was changed from VC/AC mode to pressure support mode. Will repeat ABG tomorrow morning and if patient is hemodynamically stable, able to respond after weaning of the sedation, planning to wean her off the mechanical ventilator. 11/13/2024: Patient seen this morning, at a RASS of 0 able to follow commands well, interactive and trying to communicate. Initially plan was to extubate today. Later that morning around 9:40 am patient appeared anxious and went into SVT rate up to 180s with hypoxia in the 70s while on pressure support. Patient was switched back to AC/VC on 100% FiO2. Patient was given metoprolol tartrate 5 mg IV x1, adenosine 6 mg IV x1, furosemide 40 mg IV x1, diltiazem 10 mg IV x1, and midazolam 1 mg IV x1, after which patient had resolution of heart rate and rhythm. Patient was then placed on Precedex drip. Will keep patient sedated overnight and try for extubation tomorrow. Started Veltassa for hyperkalemia, follow up potassium levels. Patient will have dialysis tomorrow. Troponin was repeated in the afternoon which was elevated at 4.088 therefore Plavix loading dose was given 300 mg x1 followed by 75 mg qday and heparin drip was started after discussed with Dr. Escudero. 11/14/2024: Patient is seen and examined at bedside in the ICU. Initial plan was to extubate patient this morning but after decreasing the sedation, patient became more interactive and is trying to communicate with the hand gestures and trying to speak. Patient was kept on pressure support mode and she was tolerating it well. Later suddenly noted multiple episodes of SVT and VT. Patient was given 300 mg bolus of amiodarone and was started on amiodarone drip. Later no further episodes of arrhythmias were noted during the day. Patient was kept back on the VC/AC mode. Consulted digital computer systems analyst, Dr. Escudero who is following the patient, recommended that he will do cardiac cath on 11/16/2024. So we will plan to extubate patient once the cardiac cath is done as patient is going into arrhythmias whenever trying to wean her off the sedation and extubate. Patient is taking metoprolol 25 mg twice daily at home. Echocardiogram done on 11/13/2024 showed EF of 30%. So resumed metoprolol to tartrate 25 mg twice daily. Will continue telemetry monitoring 11/15/2024: Patient is seen and examined at bedside in the ICU. No acute overnight events. No further episodes of SVT and VT noted. Patient continued to be on the amiodarone drip and heparin drip. Pending cardiac cath tomorrow around 11:[address] Escudero. Noted to have mild respiratory alkalosis for which respiratory rate is decreased from 20-18. Labs done this morning showed thrombocytopenia, 97,000. As patient is on heparin drip and also noted to have downtrending platelet count since the start of heparin drip, will do workup for heparin- induced thrombocytopenia. Will keep patient on n.p.o. since midnight. Transition to oral amiodarone 200 mg twice daily based on Dr. Escudero's recommendations. Will stop heparin drip around 1 hour before the cardiac catheterization. Talked to her friend who is the point of contact who gave consent for the cardiac catheterization and also patient when she is awake she wrote down on the patient that she wants to undergo cardiac catheterization. Planning to extubate once cardiac catheterization is done if the patient is hemodynamically stable.Will continue to monitor platelet count and discontinue heparin drip of the platelet counts downtrend. Exam Vital Signs Temp Pulse Resp BP Pulse Ox O2 Del Method O2 Flow Rate 97.3 F 70 19 108/53 L 96 Mechanical Ventilation 80 11/15/24 16:00 11/15/24 17:00 11/15/24 14:14 11/15/24 17:00 11/15/24 17:00 11/15/24 16:00 11/11/24 04:35 FiO2 35 11/15/24 16:00 Narrative Exam General: Sedated and Mechanically ventilated. HEENT: Normocephalic, atraumatic, mucous membranes moist. Heart: Regular rate and rhythm, no murmurs. Lungs: Clear to auscultation with no wheezing or crackles. Abdomen: Soft, nondistended, nontender, positive bowel sounds. ?No guarding or rebound tenderness. Neurologic: Sedated and mechanically ventilated. Extremities: No edema. Left AV fistula noted. 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 Right upper extremity swelling Skin: No rash. ecchymotic patches noted on right arm and at the site of IV catheters Objective Labs 11/16/24 04:39 11/15/24 05:10 Labs: Laboratory Results - last 24 hr 11/12/24 11/14/24 11/15/24 07:35 21:57 04:58 WBC RBC Hgb Hct MCV MCH MCHC RDW Std Deviation Plt Count Neut % (Auto) Lymph % (Auto) Addison % (Auto) Eos % (Auto) Baso % (Auto) Neut # (Auto) Lymph # (Auto) Addison # (Auto) Eos # (Auto) Baso # (Auto) Immature Gran # (Auto) Absolute Nucleated RBC Immature Gran % Nucleated RBC % PT INR APTT 49.0 H Puncture Site Cancelled Right Brachial ABG pH Cancelled 7.47 H ABG pCO2 Cancelled 39 ABG pO2 Cancelled 100 ABG HCO3 Cancelled 29 H ABG O2 Saturation Cancelled 99 H ABG Base Excess Cancelled 5 H Oxygen Liter Flow Cancelled FiO2 Cancelled 35 Sodium Potassium Chloride Carbon Dioxide Anion Gap BUN Creatinine Estim Creat Clear Calc eGFR BUN/Creatinine Ratio Glucose Calculated Osmolality Calcium Corrected Calcium Phosphorus Albumin 11/15/24 11/15/24 05:10 13:50 WBC 6.8 RBC 2.94 L Hgb 8.6 L Hct 26.2 L MCV 89 MCH 29.3 MCHC 32.8 RDW Std Deviation 59.1 H Plt Count 97 L Neut % (Auto) 80 Lymph % (Auto) 9 L Addison % (Auto) 9 Eos % (Auto) 0 Baso % (Auto) 0 Neut # (Auto) 5.4 Lymph # (Auto) 0.6 L Addison # (Auto) 0.6 Eos # (Auto) 0.0 Baso # (Auto) 0.0 Immature Gran # (Auto) 0.08 H Absolute Nucleated RBC 0.00 Immature Gran % 1 H Nucleated RBC % 0 PT 11.6 INR 1.1 APTT 100.3 H* D 55.4 H D Puncture Site ABG pH ABG pCO2 ABG pO2 ABG HCO3 ABG O2 Saturation ABG Base Excess Oxygen Liter Flow FiO2 Sodium 130 L Potassium 4.3 D Chloride 90 L Carbon Dioxide 25.3 Anion Gap 15 BUN 27 H Creatinine 4.2 H* D Estim Creat Clear Calc 11.2 L eGFR 11 L* BUN/Creatinine Ratio 6 L Glucose 121 H Calculated Osmolality 266 L Calcium 8.1 L Corrected Calcium 8.6 Phosphorus 6.5 H Albumin 3.4 ABG Interpretation ABG results: 11/11/24 11/11/24 11/12/24 04:01 07:38 04:55 ABG pH 7.14 L* 7.37 D 7.26 L D ABG pCO2 71 H* 42 D 44 ABG pO2 116 H 97 95 ABG HCO3 24 24 20 ABG O2 Saturation 97 99 H 98 ABG Base Excess -6 L -1 -7 L 11/12/24 11/13/24 11/14/24 07:35 04:13 04:35 ABG pH Cancelled 7.42 D 7.46 H ABG pCO2 Cancelled 48 40 ABG pO2 Cancelled 79 L 106 D ABG HCO3 Cancelled 31 H 29 H ABG O2 Saturation Cancelled 97 99 H ABG Base Excess Cancelled 6 H 4 H 11/15/24 04:58 ABG pH 7.47 H ABG pCO2 39 ABG pO2 100 ABG HCO3 29 H ABG O2 Saturation 99 H ABG Base Excess 5 H Quality Measures Quality Measures none Advance care planning discussed with:: other Assessment & Plan Assessment Current Active Medications: Generic Name Dose Route Start Last Admin Trade Name Julissa PRN Reason Stop Dose Admin Acetaminophen 650 mg 11/11/24 05:17 Acetaminophen 325 Mg Tablet PO 12/11/24 05:16 Q6H PRN Fever >100.5 Albuterol/Ipratropium 3 ml 11/11/24 07:00 11/15/24 14:13 Albuterol/Ipratropium (Duoneb) Rt Poonam 3 Ml Nebu INH 12/11/24 06:59 3 ml Q4HRRT RAYO Administration Aspirin 81 mg 11/11/24 09:00 11/15/24 10:18 Aspirin 81 Mg Chew NG 12/11/24 08:59 81 mg QDAY RAYO Administration Atorvastatin Calcium 40 mg 11/11/24 21:00 11/14/24 20:01 Atorvastatin Calcium 20 Mg Tablet NG 12/11/24 20:59 40 mg HS RAYO Administration Calcium Carbonate 600 mg 11/11/24 09:00 11/15/24 10:18 Calcium Carbonate 600 Mg Tablet NG 12/11/24 08:59 600 mg BID RAYO Administration Clopidogrel Bisulfate 75 mg 11/14/24 09:00 11/15/24 10:25 Clopidogrel Bisulfate 75 Mg Tablet PO 12/14/24 08:59 75 mg QDAY RAYO Administration Dextrose 25 ml 11/12/24 06:24 Dextrose 50%-Water Inj 50 Ml Syringe IV 12/12/24 06:23 Q15MIN PRN BG 50-70 responsive npo pt Dextrose 50 ml 11/12/24 06:24 Dextrose 50%-Water Inj 50 Ml Syringe IV 12/12/24 06:23 Q15MIN PRN BG <50 OR BG <70 & pt unresponsive Famotidine 20 mg 11/11/24 09:00 11/15/24 10:16 Famotidine Inj 10 Mg/Ml Vial 2 Ml IVP 12/11/24 08:59 20 mg QDAY RAYO Administration Protocol Glucagon 1 mg 11/12/24 06:24 Glucagon Inj 1 Mg Vial IM Q15MIN PRN BG <70, and no IV access Hydralazine HCl 10 mg 11/11/24 05:30 Hydralazine Inj 20 Mg/Ml Vial IVP 12/11/24 05:29 Q6H PRN SBP>180 Fentanyl Citrate 2,500 mcg in 250 mls @ 2.5 mls/hr 11/11/24 04:27 11/15/24 16:00 Sublimaze Inj 2,500 Mcg/250 Ml Bag IV 11/16/24 04:06 175 mcg/hr .Q24H PRN 17.5 mls/hr PER PROTOCOL Titration Protocol 25 MCG/HR Propofol 1,000 mg in 100 mls @ 2.072 mls/hr 11/11/24 04:27 11/13/24 08:48 Diprivan Ivpb IV 12/11/24 03:37 0 mcg/kg/min .Q24H PRN 0 mls/hr Per Protocol Titration Protocol 5 MCG/KG/MIN Ceftriaxone Sodium/Dextrose 1 gm in 50 mls @ 100 mls/hr 11/11/24 11:27 11/15/24 14:05 Rocephin/D5w 1gm Iv Premix IV 11/18/24 11:26 Infused QDAY RAYO Infusion Norepinephrine/Dextrose 8 mg in 250 mls @ 6.476 mls/hr 11/11/24 16:05 11/13/24 14:59 Levophed In D5w 8mg/250ml IV 12/11/24 16:04 0 mcg/kg/min .Q24H PRN 0 mls/hr PER PROTOCOL Titration Protocol 0.05 MCG/KG/MIN Dexmedetomidine/Sodium Chloride 400 mcg in 100 mls @ 3.375 mls/hr 11/13/24 09:53 11/15/24 16:00 Precedex Ivpb IV 12/13/24 09:42 1.4 mcg/kg/hr .Q24H PRN 23.625 mls/hr Per PROTOCOL Titration Protocol 0.2 MCG/KG/HR Heparin Sodium/Dextrose 25,000 unit in 250 mls @ 8.1 mls/hr 11/13/24 15:15 11/15/24 16:48 Heparin In D5w Ivpb IV 11/27/24 15:14 Not Given .Q24H RAYO Protocol 12 UNITS/KG/HR Albumin Human 25 gm in 100 mls @ 100 mls/min 11/14/24 08:47 11/14/24 18:41 Albuminar-25 Ivpb IV Infused PRN PRN Infusion DIALYSIS Metoprolol Tartrate 25 mg 11/14/24 11:30 11/15/24 10:18 Metoprolol Tartrate 25 Mg Tablet NG 12/14/24 11:29 25 mg BID RAYO Administration Midodrine 10 mg 11/11/24 22:00 11/15/24 13:47 Midodrine 5 Mg Tablet NG 12/11/24 21:59 10 mg TID RAYO Administration Ondansetron HCl 4 mg 11/11/24 05:17 Ondansetron Inj 2 Mg/Ml Inj 2 Ml IVP 12/11/24 05:16 Q6H PRN NAUSEA OR VOMITING Protocol Patiromer 8.4 gm 11/13/24 10:45 11/15/24 10:16 Patiromer Calcium 8.4 Gm Packet (Non-Form) PO 12/13/24 10:44 8.4 gm DAILY RAYO Administration Pharmacy Consult 1 each 11/11/24 05:27 Pharmacy Renal Dose Adjustment 1 Ea XX 12/11/24 05:26 PRN PRN CONSULT Sevelamer Carbonate 0.8 gm 11/14/24 08:00 11/15/24 16:54 Sevelamer Carbonate 0.8 Gm Packet (Non-Formulary) NG 12/14/24 07:59 0.8 gm TIDWM RAYO Administration Sodium Chloride 3 ml 11/11/24 04:43 Sodium Chloride Rt Poonam 0.9% 3 Ml Nebu INH 12/11/24 04:42 PRN PRN SOLN Plan The patient is a 74-year-old female with significant past medical history of CHF, coronary artery disease with multiple MIs s/p stents, COPD on 3 L home oxygen, ESRD on hemodialysis, Thursday, Thursday, , Thursday, A-fib with pacemaker, brought in by EMS with chief complaint of acute SOB. The patient was intubated and admitted to ICU for further management of acute hypoxic hypercapnic respiratory failure secondary to COPD exacerbation. Neuro: #Acute encephalopathy Differential diagnosis: CO2 narcosis versus sedation versus metabolic. - CO2 narcosis: Likely as patient had history of COPD [on 3 L of oxygen at home], brought to the hospital with chief complaints of shortness of breath and noted to have severe wheeze for which she was given DuoNebs by the EMS and was kept on CPAP during admit to the hospital. - Sedation: Patient is currently on precedex and fentanyl, which could be the cause of encephalopathy for now as patient ABG significantly improved. - Metabolic: Patient had history of ESRD on HD, unsure of last dialysis session but per her gas prover, Dr. Mishra she is getting dialysis 4 times in a week -Hypertensive encephalopathy: Blood pressure at the time of admission is 200/76 mmHg, unlikely as patient is having hypoxia and hypercapnia at the time of presentation and noted to have wheeze at the time of presentation Diagnostic test: - ABG at the time of admission showed pH 7.14, pCO2 71, PaO2 116, bicarb 24, oxygen saturation 97. - Chest x-ray showed cardiomegaly, infiltrates more on the right basilar area. - Labs showed WBC 13.5 - Tested negative for influenza A and B, COVID-19 Plan - Currently patient is on mechanical ventilator with sedation - Will wean her off sedation when planning to extubate CVS: # CAD s/p multiple stents # S/p pacemaker # HFrEF, EF 45% in 2023 - Though patient presented with acute SOB, was found to have BNP 1999, no JVD or peripheral edema noted - EKG showed paced rhythm with ST elevation in 1, aVL and reciprocal depressions in 2, 3 and aVF suggestive of old OK Plan - Low-sodium diet - Fluid restriction to 1500 cc daily - Talked to digital computer systems analyst, Dr. Escudero about the EKG findings and he recommended that ST elevations are from old OK - Patient had history of NSTEMI in September, but rejected cardiac catheterization at that time, patient might be having ongoing ischemia due to which patient is having multiple episodes of SVT/VT - Planning to do cardiac catheterization on 11/16/2024 - NPO since midnight #Episode of SVT/VT 11/13/2024 Patient was given adenosine 6 mg IV x1, metoprolol 5 mg IV x1, diltiazem 10 mg IV x1 with conversion On 11/15/2023, when trying to wean patient off the sedation and kept on pressure support mode, patient became more agitated and developed multiple episodes of SVT and VT Plan - Continuous telemetry - Keep sedated overnight - Started on metoprolol tartarate 25mg twice daily - Transitioned from amiodarone IV to oral , 200mg twice daily # History of atrial fibrillation Patient never had documented episodes of atrial fibrillation but on pacemaker tracing, noted to have atrial fibrillation for which patient was started on amiodarone and Eliquis - Resumed her home amiodarone 200 Mg twice daily - Stopped Eliquis 5 mg twice daily for heparin drip # NSTEMI, likely type II versus type 1 Troponin is mildly elevated at the time of admission, 0.046 uptrended to 4.000 Though EKG showed changes of ST elevation, they are likely from the old OK - Will continue telemetry monitoring - Started heparin drip - Loading dose Plavix given 300 mg x1 - Start Plavix 75 mg qday - Following with Cardiology, Dr. Escudero Pulmonology: #Acute hypoxic hypercapnic respiratory failure 2/ #COPD exacerbation, resolved #Pulmonary edema Likely in the setting of worsening disease or superimposed bacterial infection and pulmonary edema in the setting of ESRD, Ongoing ischemic heart disease Diagnostic test: - Tested negative for influenza A, B and COVID-19 - ABG at the time of admission showed pH 7.14, pCO2 71, PaO2 116, bicarb 24, oxygen saturation 97. - Chest x-ray showed cardiomegaly, infiltrates more on the right basilar area. - Labs showed WBC 13.5 - Tested negative for influenza A and B, COVID-19 - Blood culture and ET secretions culture pending Treatment: - Patient is sedated, intubated and mechanically ventilated - Received methylprednisolone 125 Mg IV x 1 in the ED - Started on methylprednisolone 60 Mg IV daily, completed 5 days on 11/14/2024 - Nebulizations every fourth of every, DuoNebs - Tried to wean the patient off ventilator on 11/13, 11/14 but noted to go to SVT and VT on both days. - Planning to do cardiac cath on 11/16/2024, following which we will try to wean her off the ventilator - On ceftriaxone 1 gm iv once daily, D6 GI: - No active problems Renal: #ESRD on HD -Patient is having 4 dialysis sessions per week At the time of admission, pH of 7.14, pCO2 71, lactic acid 4.1 Plan - [employer] Dr. Mishra consulted, appreciate recommendations - Received HD session on 11/15/2024 - Will need HD as per her routine schedule - Will avoid nephrotoxic medications and renally dose medications #Hypocalcemia Presented with calcium of 7.7 - Started on calcium carbonate 600 Mg twice daily via NG tube Hematology: #Leukocytosis, resolved Reactive versus steroid versus infective Secondary to pneumonia and COPD exacerbation - Continue to treat underlying cause #Normocytic anemia DDx: Inflammatory anemia due to chronic kidney disease, versus nutritional deficiency versus malabsorption - Workup as an outpatient basis # Thrombocytopenia - At the time of admission is 177 - Patient is started on heparin drip on 11/13/2024 in view of suspected ongoing acute ischemic heart disease. - Since then, noted to have downtrend in platelet count - Platelet count as of 11/16/2023 is 97,000 - Suspected HIT in the setting of heparin and thrombocytopenia Plan - Will continue heparin drip for now - HIT panel is sent - Will continue to monitor platelet count and if continues to drop, will hold the heparin drip. ID: #Suspected community-acquired pneumonia - Antibiotic therapy treatment as above -Pending blood culture and ET secretion culture Health maintenance: Dispo: ICU for further management of acute hypoxic hypercapnic respiratory failure secondary to COPD exacerbation, Pulmonary edema Diet: Tube feeds through OG tube Lines: Left IJ central line, peripheral lines DVT prophylaxis: Heparin CODE STATUS: Full code Patient plan of care was discussed with the sample maker, Dr. Merritt. Elmer Husain, PGY2 Attending Provider Attestation/Addendum Patient seen and examined resident, agree with above. In brief is a 74-year-old female admitted to the ICU for respiratory failure and has developed a non- STEMI. She is on heparin aspirin and Plavix. She has developed several runs of SVT as well as VT which was terminated with her ICD. Her echocardiogram shows significant akinesia as well as hypokinesia consistent with ischemic cardiomyopathy and an EF of 30%. She will be scheduled for cardiac cath tomorrow. She is currently on amiodarone. Will remain sedated and intubated today for her procedure tomorrow as every time a spontaneous breathing trial is attempted she develops anxiety SVT and flash pulmonary edema. She is end-stage renal and followed by nephrology. She has undergone hemodialysis. Case discussed with ICU team labs, imaging and records reviewed Approximately 38 critical care been required for evaluation, exam, review, intervention, discussion formulation of plan of care for this critically ill patient with respiratory failure, heart failure and SVT at high risk for further and ongoing decompensation.
[2024-11-15] MEDS: ATORVASTATIN CALCIUM 20 MG TABLET 40 MG NG (20:23)
[2024-11-15] MEDS: AMIODARONE HCL 200 MG TABLET NG (20:23)
[2024-11-15 20:37] LABS: Hepatitis A Antibody IgM Non Reactive (Non React); Hepatitis B Core Antibody IgM Non Reactive (Non React); Hepatitis B Surface Ab NonReact(Not Immune) (Immune); Hepatitis B Surface Antigen Non Reactive (Non React); Hepatitis C Antibody Non Reactive (Non React)
[2024-11-15] MEDS: fentaNYL 2,500 MCG/250 ML BAG 2,500 MCG/250 ML BAG 27.5 MCG IV (22:00)
--- NOTE | 2024-11-15 23:50 | ESPR_ITS ---
<Statement entered by Jessenia Escudero MD - 11/20/24 18:36> Patient is evaluated by me in the intensive care in critical condition continues to have wide QRS complex tachycardia A-fib SVT requiring amiodarone continues to have multiple episodes of these requiring defibrillator shocks as well. Condition remains critical prognosis guarded patient's not expected to survive. Unable to get a consent from the patient of the family. Patient will require coronary angiography at some point. Conditions critical more than 45 minutes critical care time spent with the patient and coordination of the care. Personally examined the patient with resident physician and treatment plan includes IV amiodarone continuation ventilatory support dialysis as well. Evaluated patient with resident physician agree with the treatment plan recommendations documented by PGY 2 Dr. bernadine Gan Documentation for date of: 11/16/24 Subjective Subjective Interval history: Remained stable overnight without further episodes of SVT or VT. She continues on amiodarone and heparin drips, with a cardiac catheterization scheduled for tomorrow. Mild respiratory alkalosis was noted, prompting a decrease in ventilator rate from 20 to 18. Morning labs revealed thrombocytopenia (platelets 97,000) with a downward trend since starting heparin, so workup for heparin-induced thrombocytopenia is planned. She will remain NPO after midnight, transition to oral amiodarone 200 mg twice daily, and stop the heparin drip one hour before the procedure. Consent to be obtained from family or from the patient herself when awake. If stable post-procedure, extubation is planned, with continued platelet monitoring and early discontinuation of heparin if counts fall further. Exam Vital Signs Temp Pulse Resp BP Pulse Ox O2 Del Method O2 Flow Rate 97.1 F 77 25 H 122/52 L 98 Mechanical Ventilation 5 11/16/24 16:52 11/16/24 22:36 11/16/24 22:36 11/16/24 22:07 11/16/24 22:36 11/16/24 04:00 11/16/24 22:36 FiO2 100 11/16/24 16:52 Narrative Exam General: Sedated and Mechanically ventilated. HEENT: Normocephalic, atraumatic, mucous membranes moist. Heart: Regular rate and rhythm, no murmurs. Lungs: Clear to auscultation with no wheezing or crackles. Abdomen: Soft, nondistended, nontender, positive bowel sounds. ?No guarding or rebound tenderness. Neurologic: Sedated and mechanically ventilated. Extremities: No edema. Left AV fistula noted Skin: No rash or ecchymoses. Objective Labs 11/16/24 04:39 11/16/24 18:45 Labs: Laboratory Results - last 24 hr 11/16/24 11/16/24 11/16/24 01:10 04:39 05:20 WBC 10.7 D RBC 3.08 L Hgb 9.0 L Hct 27.8 L MCV 90 MCH 29.2 MCHC 32.4 RDW Std Deviation 60.2 H Plt Count 157 D Neut % (Auto) 68 Lymph % (Auto) 18 [place] % (Auto) 10 Eos % (Auto) 2 Baso % (Auto) 0 Neut # (Auto) 7.2 Lymph # (Auto) 2.0 [place] # (Auto) 1.1 H Eos # (Auto) 0.2 Baso # (Auto) 0.0 Immature Gran # (Auto) 0.14 H Absolute Nucleated RBC 0.02 H Immature Gran % 1 H Nucleated RBC % 0 APTT 40.8 H D Puncture Site Left Brachial ABG pH 7.29 L D ABG pCO2 51 H D ABG pO2 234 H D ABG HCO3 24 ABG O2 Saturation 100 H ABG Base Excess -2 FiO2 40 Sodium 127 L Potassium 4.6 Chloride 88 L Carbon Dioxide 24.4 Anion Gap 15 BUN 46 H Creatinine 5.1 H* D Estim Creat Clear Calc 9.2 L eGFR 8 L* BUN/Creatinine Ratio 9 L Glucose 100 Calculated Osmolality 267 L Calcium 8.6 Corrected Calcium 9.0 Phosphorus 8.0 H Magnesium Albumin 3.5 11/16/24 11/16/24 11/16/24 09:06 11:55 18:45 WBC RBC Hgb Hct MCV MCH MCHC RDW Std Deviation Plt Count Neut % (Auto) Lymph % (Auto) [place] % (Auto) Eos % (Auto) Baso % (Auto) Neut # (Auto) Lymph # (Auto) [place] # (Auto) Eos # (Auto) Baso # (Auto) Immature Gran # (Auto) Absolute Nucleated RBC Immature Gran % Nucleated RBC % APTT 66.7 H D 45.8 H D Puncture Site Right Brachial ABG pH 7.41 D ABG pCO2 39 D ABG pO2 160 H D ABG HCO3 24 ABG O2 Saturation 100 H ABG Base Excess 0 FiO2 50 Sodium Potassium 3.8 D Chloride Carbon Dioxide Anion Gap BUN Creatinine Estim Creat Clear Calc eGFR BUN/Creatinine Ratio Glucose Calculated Osmolality Calcium Corrected Calcium Phosphorus Magnesium 2.3 Albumin ABG Interpretation ABG results: 11/11/24 11/11/24 11/12/24 04:01 07:38 04:55 ABG pH 7.14 L* 7.37 D 7.26 L D ABG pCO2 71 H* 42 D 44 ABG pO2 116 H 97 95 ABG HCO3 24 24 20 ABG O2 Saturation 97 99 H 98 ABG Base Excess -6 L -1 -7 L 11/12/24 11/13/24 11/14/24 07:35 04:13 04:35 ABG pH Cancelled 7.42 D 7.46 H ABG pCO2 Cancelled 48 40 ABG pO2 Cancelled 79 L 106 D ABG HCO3 Cancelled 31 H 29 H ABG O2 Saturation Cancelled 97 99 H ABG Base Excess Cancelled 6 H 4 H 11/15/24 11/16/24 11/16/24 04:58 05:20 11:55 ABG pH 7.47 H 7.29 L D 7.41 D ABG pCO2 39 51 H D 39 D ABG pO2 100 234 H D 160 H D ABG HCO3 29 H 24 24 ABG O2 Saturation 99 H 100 H 100 H ABG Base Excess 5 H -2 0 Quality Measures Quality Measures none Advance care planning discussed with:: other Assessment & Plan Assessment Current Active Medications: Generic Name Dose Route Start Last Admin Trade Name Freq PRN Reason Stop Dose Admin Acetaminophen 650 mg 11/11/24 05:17 Acetaminophen 325 Mg Tablet PO 12/11/24 05:16 Q6H PRN Fever >100.5 Albuterol/Ipratropium 3 ml 11/11/24 07:00 11/16/24 22:13 Albuterol/Ipratropium (Duoneb) Rt Poonam 3 Ml Nebu INH 12/11/24 06:59 3 ml Q4HRRT RAYO Administration Amiodarone HCl 200 mg 11/15/24 21:00 11/16/24 10:06 Amiodarone Hcl 200 Mg Tablet NG 12/15/24 20:59 200 mg BID RAYO Administration Aspirin 81 mg 11/11/24 09:00 11/16/24 10:12 Aspirin 81 Mg Chew NG 12/11/24 08:59 81 mg QDAY RAYO Administration Atorvastatin Calcium 40 mg 11/11/24 21:00 11/16/24 21:23 Atorvastatin Calcium 20 Mg Tablet NG 12/11/24 20:59 Not Given HS RAYO Bisacodyl 10 mg 11/16/24 10:09 11/16/24 10:44 Bisacodyl 10 Mg Supp OK 12/16/24 10:08 10 mg QDAY PRN Administration CONSTIPATION Protocol Calcium Carbonate 600 mg 11/11/24 09:00 11/16/24 21:24 Calcium Carbonate 600 Mg Tablet NG 12/11/24 08:59 Not Given BID RAYO Clopidogrel Bisulfate 75 mg 11/14/24 09:00 11/16/24 10:14 Clopidogrel Bisulfate 75 Mg Tablet PO 12/14/24 08:59 75 mg QDAY RAYO Administration Dextrose 25 ml 11/12/24 06:24 Dextrose 50%-Water Inj 50 Ml Syringe IV 12/12/24 06:23 Q15MIN PRN BG 50-70 responsive npo pt Dextrose 50 ml 11/12/24 06:24 Dextrose 50%-Water Inj 50 Ml Syringe IV 12/12/24 06:23 Q15MIN PRN BG <50 OR BG <70 & pt unresponsive Famotidine 20 mg 11/11/24 09:00 11/16/24 10:11 Famotidine Inj 10 Mg/Ml Vial 2 Ml IVP 12/11/24 08:59 20 mg QDAY RAYO Administration Protocol Glucagon 1 mg 11/12/24 06:24 Glucagon Inj 1 Mg Vial IM Q15MIN PRN BG <70, and no IV access Hydralazine HCl 10 mg 11/11/24 05:30 Hydralazine Inj 20 Mg/Ml Vial IVP 12/11/24 05:29 Q6H PRN SBP>180 Norepinephrine/Dextrose 8 mg in 250 mls @ 6.476 mls/hr 11/11/24 16:05 11/16/24 17:24 Levophed In D5w 8mg/250ml IV 12/11/24 16:04 0 mcg/kg/min .Q24H PRN 0 mls/hr PER PROTOCOL Titration Protocol 0.05 MCG/KG/MIN Dexmedetomidine/Sodium Chloride 400 mcg in 100 mls @ 3.375 mls/hr 11/13/24 09:53 11/16/24 22:52 Precedex Ivpb IV 12/13/24 09:42 1.1 mcg/kg/hr .Q24H PRN 18.563 mls/hr Per PROTOCOL Administration Protocol 0.2 MCG/KG/HR Albumin Human 25 gm in 100 mls @ 100 mls/min 11/14/24 08:47 11/14/24 18:41 Albuminar-25 Ivpb IV Infused PRN PRN Infusion DIALYSIS Fentanyl Citrate 2,500 mcg in 250 mls @ 2.5 mls/hr 11/16/24 06:31 11/16/24 09:36 Sublimaze Inj 2,500 Mcg/250 Ml Bag IV 11/21/24 06:30 Infused .Q24H PRN Titration PER PROTOCOL Protocol 25 MCG/HR Heparin Sodium/Dextrose 25,000 unit in 250 mls @ 8.52 mls/hr 11/16/24 10:45 11/16/24 21:00 Heparin In D5w Ivpb IV 11/30/24 10:44 15 units/kg/hr .Q24H RAYO 10.65 mls/hr Titration Protocol 12 UNITS/KG/HR Ampicillin Sodium/Sulbactam 100 mls @ 200 mls/hr 11/16/24 18:00 11/16/24 18:10 Sodium 3 gm/ Sodium Chloride IV 11/23/24 17:59 200 mls/hr QDAY RAYO Administration Protocol Amiodarone HCl/Dextrose 360 mg in 200 mls @ 16.667 mls/hr 11/16/24 23:10 Nexterone Ivpb IV 11/17/24 23:09 .Q12H RAYO Amiodarone HCl/Dextrose 360 mg in 200 mls @ 33.333 mls/hr 11/16/24 18:45 11/16/24 18:50 Nexterone Ivpb IV 11/17/24 00:44 33.333 mls/hr .Q6H ONE Administration Magnesium Hydroxide 30 ml 11/16/24 10:08 11/16/24 10:46 Milk Of Magnesia Susp 30 Ml Udc PO 12/16/24 10:07 30 ml QDAY PRN Administration CONSTIPATION Protocol Metoprolol Tartrate 25 mg 11/14/24 11:30 11/16/24 21:24 Metoprolol Tartrate 25 Mg Tablet NG 12/14/24 11:29 Not Given BID RAYO Midodrine 10 mg 11/11/24 22:00 11/16/24 22:09 Midodrine 5 Mg Tablet NG 12/11/24 21:59 Not Given TID RAYO Ondansetron HCl 4 mg 11/11/24 05:17 Ondansetron Inj 2 Mg/Ml Inj 2 Ml IVP 12/11/24 05:16 Q6H PRN NAUSEA OR VOMITING Protocol Patiromer 8.4 gm 11/13/24 10:45 11/16/24 10:47 Patiromer Calcium 8.4 Gm Packet (Non-Form) PO 12/13/24 10:44 Not Given DAILY RAYO Pharmacy Consult 1 each 11/11/24 05:27 Pharmacy Renal Dose Adjustment 1 Ea XX 12/11/24 05:26 PRN PRN CONSULT Quetiapine Fumarate 50 mg 11/16/24 09:45 11/16/24 21:24 Quetiapine Fumarate 25 Mg Tablet NG 12/16/24 09:44 Not Given Q12HR RAYO Sevelamer Carbonate 0.8 gm 11/14/24 08:00 11/16/24 18:34 Sevelamer Carbonate 0.8 Gm Packet (Non-Formulary) NG 12/14/24 07:59 Not Given TIDWM RAYO Sodium Chloride 3 ml 11/11/24 04:43 Sodium Chloride Rt Poonam 0.9% 3 Ml Nebu INH 12/11/24 04:42 PRN PRN SOLN Plan The patient is a 74-year-old female with a history of CHF, CAD with multiple MIs and stents, COPD on 3 L home oxygen, ESRD on hemodialysis, and atrial fibrillation with pacemaker, who presented on 11/11/24 via EMS with acute shortness of breath. At home, she was hypoxic with oxygen saturation in the 80s and received DUONEB during transport. In the ED, she was saturating at 84% on high-flow CPAP, hypertensive to 200/76 mmHg, and altered. ABG demonstrated acute hypercapnic and hypoxic respiratory failure (pH 7.14, pCO? 71, pO? 116). CXR showed right lower lobe pneumonia. Labs revealed leukocytosis, elevated BNP (2006), elevated D-dimer, mild troponin rise (0.046), and creatinine consistent with ESRD. She was intubated, given METHYLPREDNISOLONE, fluids, CEFIXIME, and VANCOMYCIN, and admitted to the ICU. 1. Acute hypoxic respiratory failure secondary to chronic obstructive lung disease and acute decompensated congestive heart failure, flash pulmonary edema requiring mechanical ventilation. 2. Acute non-ST segment elevation myocardial infarction with persistent ST segment changes, chronically elevated due to left ventricular inferobasal and posterobasal aneurysm. 3. Coronary artery disease status post multivessel stent placement. 4. End-stage renal disease on hemodialysis. 5. Severe chronic obstructive lung disease. 6. Paroxysmal atrial fibrillation. 7. Vtach She has a known respiratory failure on home 3 L oxygen likely from COPD and CHF. Echo in 2003 showing EF 45%, mild hypokinesis of basal septal/inferior wall as well as mild diastolic dysfunction, in addition to mild to severe mitral annular calcification, moderate MR, trace AI/PI, mild TR. Additionally, EKG from 2023 showed atrial fibrillation which appear paroxysmal. Today she appeared to be having recurrent wide-complex tachycardia, suggestive of V. tach. Additionally, she has been going into SVT and tachyarrhythmia during extubation, which has been deferred at this point. Troponin continue to elevated, currently around 4.0. As such, she likely has underlying ischemic cardiomyopathy possibly leading to recurrent arrhythmia, and she has received multiple doses of ADENOSINE for this. Recommendations include: Continue HEPARIN GGT, PLAVIX and ASPIRIN. Continue AMIODARONE drip for tachyarrhythmia. Continue cardiac stratification. Continue ventilation support and sedation. Maintain K > 4.0 and Mg > 2.0. Will plan on right heart cath on Thursday when she is slightly more hemodynamically stable. Continue MIDODRINE and VASOPRESSORS as needed to maintain MAP above 65. Continue treating pneumonia. Case was discussed with attending physician, Dr. Escudero. Bernadine Gan DO PGY II This document was transcribed using voice recognition technology. Minor inaccuracies may be present.
[2024-11-16] VITALS (165 sets, daily range): BP systolic 59–216; BP diastolic 26–164; PULSE 63–203; RESP 3–100; TEMP 36.1–36.8; O2SAT 7–100
--- NOTE | 2024-11-16 00:02 | ESPR_ITS ---
<Statement entered by Jessenia Escudero MD - 11/20/24 18:37> I personally examined the patient evaluate the patient interrogated the ICD device patient had recurrent wide QRS complex tachycardia requiring multiple shocks appropriate shocks delivered she also with monomorphic ventricular tachycardia and ventricular fibrillation episodes. Condition remains critical prognosis guarded will try to get a consent from the friend of her family trying to coronary angiogram tomorrow if possible. Condition is critical prognosis guarded evaluated patient with resident physician evaluate the patient and agree with treatment plan recommendations will plan coronary angiogram tomorrow Documentation for date of: 11/17/24 Subjective Subjective Interval history: She was agitated overnight, requiring high doses of fentanyl and Precedex. Morning ABG showed mild respiratory acidosis. The planned cardiac catheterization was postponed, and as she was stable with minimal FiO? needs, sedation was weaned, and she was extubated to BiPAP at 10:20 AM on 11/16/2024 after passing a spontaneous breathing trial. Post-extubation, she experienced multiple short episodes of SVT and VT, treated with metoprolol, Haldol, and Seroquel due to delirium and agitation. Precedex was restarted. During dialysis at 3 PM, she developed shock requiring vasopressor support. ABG after extubation was normal, and she was transitioned from BiPAP to an oxy mask. Continued SVT and bradycardia episodes prompted an amiodarone bolus and drip per. ICD interrogation confirmed multiple VT episodes with shocks delivered. Sputum culture grew Acinetobacter iwofii, and Unasyn was started. Exam Vital Signs Temp Pulse Resp BP Pulse Ox O2 Del Method O2 Flow Rate 97.1 F 77 25 H 122/52 L 98 Mechanical Ventilation 5 11/16/24 16:52 11/16/24 22:36 11/16/24 22:36 11/16/24 22:07 11/16/24 22:36 11/16/24 04:00 11/16/24 22:36 FiO2 100 11/16/24 16:52 Narrative Exam General: Extubated, on BIPAP, agitated on biPAP HEENT: Normocephalic, atraumatic, mucous membranes moist. Heart: Regular rate and rhythm, no murmurs. Lungs: Clear to auscultation with no wheezing or crackles. Abdomen: Soft, nondistended, nontender, positive bowel sounds. ?No guarding or rebound tenderness. Neurologic: No focal necrological deficits. Extremities: No edema. Left AV fistula noted Skin: No rash or ecchymoses. Objective Labs 11/16/24 04:39 11/16/24 18:45 Labs: Laboratory Results - last 24 hr 11/16/24 11/16/24 11/16/24 01:10 04:39 05:20 WBC 10.7 D RBC 3.08 L Hgb 9.0 L Hct 27.8 L MCV 90 MCH 29.2 MCHC 32.4 RDW Std Deviation 60.2 H Plt Count 157 D Neut % (Auto) 68 Lymph % (Auto) 18 [place] % (Auto) 10 Eos % (Auto) 2 Baso % (Auto) 0 Neut # (Auto) 7.2 Lymph # (Auto) 2.0 [place] # (Auto) 1.1 H Eos # (Auto) 0.2 Baso # (Auto) 0.0 Immature Gran # (Auto) 0.14 H Absolute Nucleated RBC 0.02 H Immature Gran % 1 H Nucleated RBC % 0 APTT 40.8 H D Puncture Site Left Brachial ABG pH 7.29 L D ABG pCO2 51 H D ABG pO2 234 H D ABG HCO3 24 ABG O2 Saturation 100 H ABG Base Excess -2 FiO2 40 Sodium 127 L Potassium 4.6 Chloride 88 L Carbon Dioxide 24.4 Anion Gap 15 BUN 46 H Creatinine 5.1 H* D Estim Creat Clear Calc 9.2 L eGFR 8 L* BUN/Creatinine Ratio 9 L Glucose 100 Calculated Osmolality 267 L Calcium 8.6 Corrected Calcium 9.0 Phosphorus 8.0 H Magnesium Albumin 3.5 11/16/24 11/16/24 11/16/24 09:06 11:55 18:45 WBC RBC Hgb Hct MCV MCH MCHC RDW Std Deviation Plt Count Neut % (Auto) Lymph % (Auto) [place] % (Auto) Eos % (Auto) Baso % (Auto) Neut # (Auto) Lymph # (Auto) [place] # (Auto) Eos # (Auto) Baso # (Auto) Immature Gran # (Auto) Absolute Nucleated RBC Immature Gran % Nucleated RBC % APTT 66.7 H D 45.8 H D Puncture Site Right Brachial ABG pH 7.41 D ABG pCO2 39 D ABG pO2 160 H D ABG HCO3 24 ABG O2 Saturation 100 H ABG Base Excess 0 FiO2 50 Sodium Potassium 3.8 D Chloride Carbon Dioxide Anion Gap BUN Creatinine Estim Creat Clear Calc eGFR BUN/Creatinine Ratio Glucose Calculated Osmolality Calcium Corrected Calcium Phosphorus Magnesium 2.3 Albumin ABG Interpretation ABG results: 11/11/24 11/11/24 11/12/24 04:01 07:38 04:55 ABG pH 7.14 L* 7.37 D 7.26 L D ABG pCO2 71 H* 42 D 44 ABG pO2 116 H 97 95 ABG HCO3 24 24 20 ABG O2 Saturation 97 99 H 98 ABG Base Excess -6 L -1 -7 L 11/12/24 11/13/24 11/14/24 07:35 04:13 04:35 ABG pH Cancelled 7.42 D 7.46 H ABG pCO2 Cancelled 48 40 ABG pO2 Cancelled 79 L 106 D ABG HCO3 Cancelled 31 H 29 H ABG O2 Saturation Cancelled 97 99 H ABG Base Excess Cancelled 6 H 4 H 11/15/24 11/16/24 11/16/24 04:58 05:20 11:55 ABG pH 7.47 H 7.29 L D 7.41 D ABG pCO2 39 51 H D 39 D ABG pO2 100 234 H D 160 H D ABG HCO3 29 H 24 24 ABG O2 Saturation 99 H 100 H 100 H ABG Base Excess 5 H -2 0 Quality Measures Quality Measures none Advance care planning discussed with:: patient Assessment & Plan Assessment Current Active Medications: Generic Name Dose Route Start Last Admin Trade Name Freq PRN Reason Stop Dose Admin Acetaminophen 650 mg 11/11/24 05:17 Acetaminophen 325 Mg Tablet PO 12/11/24 05:16 Q6H PRN Fever >100.5 Albuterol/Ipratropium 3 ml 11/11/24 07:00 11/16/24 22:13 Albuterol/Ipratropium (Duoneb) Rt Poonam 3 Ml Nebu INH 12/11/24 06:59 3 ml Q4HRRT RAYO Administration Amiodarone HCl 200 mg 11/15/24 21:00 11/16/24 10:06 Amiodarone Hcl 200 Mg Tablet NG 12/15/24 20:59 200 mg BID RAYO Administration Aspirin 81 mg 11/11/24 09:00 11/16/24 10:12 Aspirin 81 Mg Chew NG 12/11/24 08:59 81 mg QDAY RAYO Administration Atorvastatin Calcium 40 mg 11/11/24 21:00 11/16/24 21:23 Atorvastatin Calcium 20 Mg Tablet NG 12/11/24 20:59 Not Given HS RAYO Bisacodyl 10 mg 11/16/24 10:09 11/16/24 10:44 Bisacodyl 10 Mg Supp SD 12/16/24 10:08 10 mg QDAY PRN Administration CONSTIPATION Protocol Calcium Carbonate 600 mg 11/11/24 09:00 11/16/24 21:24 Calcium Carbonate 600 Mg Tablet NG 12/11/24 08:59 Not Given BID RAYO Clopidogrel Bisulfate 75 mg 11/14/24 09:00 11/16/24 10:14 Clopidogrel Bisulfate 75 Mg Tablet PO 12/14/24 08:59 75 mg QDAY RAYO Administration Dextrose 25 ml 11/12/24 06:24 Dextrose 50%-Water Inj 50 Ml Syringe IV 12/12/24 06:23 Q15MIN PRN BG 50-70 responsive npo pt Dextrose 50 ml 11/12/24 06:24 Dextrose 50%-Water Inj 50 Ml Syringe IV 12/12/24 06:23 Q15MIN PRN BG <50 OR BG <70 & pt unresponsive Famotidine 20 mg 11/11/24 09:00 11/16/24 10:11 Famotidine Inj 10 Mg/Ml Vial 2 Ml IVP 12/11/24 08:59 20 mg QDAY RAYO Administration Protocol Glucagon 1 mg 11/12/24 06:24 Glucagon Inj 1 Mg Vial IM Q15MIN PRN BG <70, and no IV access Hydralazine HCl 10 mg 11/11/24 05:30 Hydralazine Inj 20 Mg/Ml Vial IVP 12/11/24 05:29 Q6H PRN SBP>180 Norepinephrine/Dextrose 8 mg in 250 mls @ 6.476 mls/hr 11/11/24 16:05 11/16/24 17:24 Levophed In D5w 8mg/250ml IV 12/11/24 16:04 0 mcg/kg/min .Q24H PRN 0 mls/hr PER PROTOCOL Titration Protocol 0.05 MCG/KG/MIN Dexmedetomidine/Sodium Chloride 400 mcg in 100 mls @ 3.375 mls/hr 11/13/24 09:53 11/16/24 22:52 Precedex Ivpb IV 12/13/24 09:42 1.1 mcg/kg/hr .Q24H PRN 18.563 mls/hr Per PROTOCOL Administration Protocol 0.2 MCG/KG/HR Albumin Human 25 gm in 100 mls @ 100 mls/min 11/14/24 08:47 11/14/24 18:41 Albuminar-25 Ivpb IV Infused PRN PRN Infusion DIALYSIS Fentanyl Citrate 2,500 mcg in 250 mls @ 2.5 mls/hr 11/16/24 06:31 11/16/24 09:36 Sublimaze Inj 2,500 Mcg/250 Ml Bag IV 11/21/24 06:30 Infused .Q24H PRN Titration PER PROTOCOL Protocol 25 MCG/HR Heparin Sodium/Dextrose 25,000 unit in 250 mls @ 8.52 mls/hr 11/16/24 10:45 11/16/24 21:00 Heparin In D5w Ivpb IV 11/30/24 10:44 15 units/kg/hr .Q24H RAYO 10.65 mls/hr Titration Protocol 12 UNITS/KG/HR Ampicillin Sodium/Sulbactam 100 mls @ 200 mls/hr 11/16/24 18:00 11/16/24 18:10 Sodium 3 gm/ Sodium Chloride IV 11/23/24 17:59 200 mls/hr QDAY RAYO Administration Protocol Amiodarone HCl/Dextrose 360 mg in 200 mls @ 16.667 mls/hr 11/16/24 23:10 Nexterone Ivpb IV 11/17/24 23:09 .Q12H RAYO Amiodarone HCl/Dextrose 360 mg in 200 mls @ 33.333 mls/hr 11/16/24 18:45 11/16/24 18:50 Nexterone Ivpb IV 11/17/24 00:44 33.333 mls/hr .Q6H ONE Administration Magnesium Hydroxide 30 ml 11/16/24 10:08 11/16/24 10:46 Milk Of Magnesia Susp 30 Ml Udc PO 12/16/24 10:07 30 ml QDAY PRN Administration CONSTIPATION Protocol Metoprolol Tartrate 25 mg 11/14/24 11:30 11/16/24 21:24 Metoprolol Tartrate 25 Mg Tablet NG 12/14/24 11:29 Not Given BID RAYO Midodrine 10 mg 11/11/24 22:00 11/16/24 22:09 Midodrine 5 Mg Tablet NG 12/11/24 21:59 Not Given TID RAYO Ondansetron HCl 4 mg 11/11/24 05:17 Ondansetron Inj 2 Mg/Ml Inj 2 Ml IVP 12/11/24 05:16 Q6H PRN NAUSEA OR VOMITING Protocol Patiromer 8.4 gm 11/13/24 10:45 11/16/24 10:47 Patiromer Calcium 8.4 Gm Packet (Non-Form) PO 12/13/24 10:44 Not Given DAILY RAYO Pharmacy Consult 1 each 11/11/24 05:27 Pharmacy Renal Dose Adjustment 1 Ea XX 12/11/24 05:26 PRN PRN CONSULT Quetiapine Fumarate 50 mg 11/16/24 09:45 11/16/24 21:24 Quetiapine Fumarate 25 Mg Tablet NG 12/16/24 09:44 Not Given Q12HR RAYO Sevelamer Carbonate 0.8 gm 11/14/24 08:00 11/16/24 18:34 Sevelamer Carbonate 0.8 Gm Packet (Non-Formulary) NG 12/14/24 07:59 Not Given TIDWM RAYO Sodium Chloride 3 ml 11/11/24 04:43 Sodium Chloride Rt Poonam 0.9% 3 Ml Nebu INH 12/11/24 04:42 PRN PRN SOLN Plan The patient is a 74-year-old female with a history of CHF, CAD with multiple MIs and stents, COPD on 3 L home oxygen, ESRD on hemodialysis, and atrial fibrillation with pacemaker, who presented on 11/11/24 via EMS with acute shortness of breath. At home, she was hypoxic with oxygen saturation in the 80s and received DUONEB during transport. In the ED, she was saturating at 84% on high-flow CPAP, hypertensive to 200/76 mmHg, and altered. ABG demonstrated acute hypercapnic and hypoxic respiratory failure (pH 7.14, pCO? 71, pO? 116). CXR showed right lower lobe pneumonia. Labs revealed leukocytosis, elevated BNP (2006), elevated D-dimer, mild troponin rise (0.046), and creatinine consistent with ESRD. She was intubated, given METHYLPREDNISOLONE, fluids, CEFIXIME, and VANCOMYCIN, and admitted to the ICU. 1. Acute hypoxic respiratory failure secondary to chronic obstructive lung disease and acute decompensated congestive heart failure, flash pulmonary edema requiring mechanical ventilation. 2. Acute non-ST segment elevation myocardial infarction with persistent ST segment changes, chronically elevated due to left ventricular inferobasal and posterobasal aneurysm. 3. Coronary artery disease status post multivessel stent placement. 4. End-stage renal disease on hemodialysis. 5. Severe chronic obstructive lung disease. 6. Paroxysmal atrial fibrillation. 7. Vtach She has a known respiratory failure on home 3 L oxygen likely from COPD and CHF. Echo in 2003 showing EF 45%, mild hypokinesis of basal septal/inferior wall as well as mild diastolic dysfunction, in addition to mild to severe mitral annular calcification, moderate MR, trace AI/PI, mild TR. Additionally, EKG from 2023 showed atrial fibrillation which appear paroxysmal. Today she appeared to be having recurrent wide-complex tachycardia, suggestive of V. tach. Additionally, she has been going into SVT and tachyarrhythmia during extubation, which has been deferred at this point. Troponin continue to elevated, currently around 4.0. As such, she likely has underlying ischemic cardiomyopathy possibly leading to recurrent arrhythmia, and she has received multiple doses of ADENOSINE for this. 11/16/2024: Extubated successfully to BiPAP. However, remains unsafe for cath today given recurrent tachyarrhythmia including V-fib and flutters. Device interrogation showed multiple shocks appropriately delivered over the last few days. Additionally, she is very agitated, slightly altered after extubation, unable to provide consent. We were also unable to obtain consent from family. She is hypertensive and tachycardic, partially from agitation but mainly from likely ongoing cardiac ischemia, although troponin downtrended from 4.088-3.023. , Recommendations include: Continue HEPARIN GGT, PLAVIX and ASPIRIN. Continue AMIODARONE drip for tachyarrhythmia with the addition of METOPROLOL pushes as needed for tachycardia. Will attempt cardiac cath tomorrow if she is more safe for procedure, and able to provide consent. Continue cardiac stratification. Continue ventilation support and sedation. Maintain K > 4.0 and Mg > 2.0. Continue MIDODRINE and VASOPRESSORS as needed to maintain MAP above 65. Continue treating pneumonia. Case was discussed with attending physician, Dr. Escudero. Richard Hanoun, DO PGY II This document was transcribed using voice recognition technology. Minor inaccuracies may be present.
[2024-11-16] MEDS: DEXMEDETOMIDINE 400 MCG IVPB 400 MCG/100 ML BAG 23.625 MCG IV ×3 (00:26→10:09)
[2024-11-16 01:54] LABS: Partial Thromboplastin Time 40.8 Seconds (22.0-36.0)
[2024-11-16] MEDS: ALBUTEROL/IPRATROPIUM (Duoneb) RT SOL 3 ML NEBU INH ×6 (02:04→22:13)
[2024-11-16] MEDS: HEPARIN SOD INJ 5000 UNIT/ML VIAL 2000 UNIT IV ×2 (02:13→22:11)
--- NOTE | 2024-11-16 05:00 | XR_ITS ---
Examination: AP chest single view Technique one AP portable semiupright chest single view Date and time: November 16, 2024 at 0458 hours Comparison 04/17/2024 INDICATIONS: Hypoxic respiratory failure, heart failure pneumonia on earlier chest films this week. FINDINGS: Moderate heart failure Enlarged cardiac contour with prominent vascular congestion and perihilar edema Consider superimposed pneumonia at the lung bases Endotracheal tube tip approximately 5 cm above bam Cardiac leads stable position Left internal jugular central line tip SVC Lower end of the orogastric tube is not visualized IMPRESSION: Moderate heart failure Consider superimposed pneumonia at the lung bases
[2024-11-16 05:27] LABS: Base Excess -2 (-3-3); HCO3 24 mEq/L (20-26); Inspired Oxygen, FIO2 40 %; O2 Saturation 100 % (91-98); PCO2 51 mmHg (32.0-48.0); PO2 234 mmHg (83-108); pH, Arterial 7.29 (7.35-7.45)
[2024-11-16 05:32] LABS: Allen Test Performed/OK; Puncture Site Left Brachial
[2024-11-16] MEDS: MIDODRINE 5 MG TABLET 10 MG NG (05:37)
[2024-11-16 06:15] LABS: Basophils # (Auto) 0.0 Thou/mm3 (0.0-0.2); Basophils % (Auto) 0 % (0-2.5); Eosinophils # (Auto) 0.2 Thou/mm3 (0.0-0.5); Eosinophils % (Auto) 2 % (0-10); Hematocrit 27.8 % (36.0-46.0); Hemoglobin 9.0 g/dL (12.0-16.0); Immature Granulocytes Auto 0.14 Thou/mm3 (0.00-0.00); Lymphocytes # (Auto) 2.0 Thou/mm3 (1.0-4.8); Lymphocytes % (Auto) 18 % (10-50); Mean Corpuscular HGB Conc 32.4 g/dl (31.0-37.0); Mean Corpuscular Hemoglobin 29.2 pg (25.0-35.0); Mean Corpuscular Volume 90 fL (80-100); Monocytes # (Auto) 1.1 Thou/mm3 (0.0-0.8); Monocytes % (Auto) 10 % (0-12); Neutrophils # (Auto) 7.2 Thou/mm3 (1.8-7.7); Neutrophils % (Auto) 68 % (37-80); Nucleated Red Blood Cell # 0.02 Thou/mm3 (0.00-0.00); Nucleated Red Blood Cell % 0 /100 WBC (0); Platelet Count 157 Thou/mm3 (140-440); RDW Standard Deviation 60.2 fL (36.4-46.3); Red Blood Count 3.08 Miln/mm3 (4.00-5.20); White Blood Count 10.7 Thou/mm3 (3.6-11.0)
[2024-11-16 06:55] LABS: Albumin, Serum 3.5 gm/dL (3.4-4.8); Anion Gap 15 (7-16); BUN/Creatinine Ratio 9 Ratio (12-20); Blood Urea Nitrogen 46 mg/dL (9-23); Carbon Dioxide 24.4 mMol/L (20.0-31.0); Chloride 88 mMol/L (98-107); Creatinine (Component) 5.1 mg/dL (0.6-1.3); Estimated Creatinine Clearance 9.2 mL/min (>60); Glucose 100 mg/dL (74-106); Osmolality,Calculated 267 (275-295); Phosphorous 8.0 mg/dL (2.4-5.1); Potassium 4.6 mMol/L (3.4-5.1); Sodium 127 mMol/L (136-145); eGFR 8 See Note
[2024-11-16 07:06] LABS: Calcium 8.6 mg/dL (8.3-10.6); Calcium (Corrected) 9.0 mg/dL (8.5-10.1)
[2024-11-16] MEDS: fentaNYL 2,500 MCG/250 ML BAG 2,500 MCG/250 ML BAG 25 MCG IV (07:26)
--- NOTE | 2024-11-16 08:44 | PC.SS ---
SS follow up note; Skyler ROMO attempted to contact patient's friend, Jose Bose, however did not answer. Skyler ROMO left voicemail with contact information.
--- NOTE | 2024-11-16 09:05 | ESPR_ITS ---
Documentation for date of: 11/16/24 Subjective Subjective Interval history: Reason for consult: ESRD, acute respiratory failure, need for dialysis History of present illness: Mirella Grewal is a 74-year-old F with a PMH of CHF, coronary artery disease with multiple MIs s/p stents, COPD on 3 L home oxygen, ESRD on hemodialysis, Thursday, Thursday, , Thursday, and A-fib with pacemaker, who was brought in by EMS with a chief complaint of acute SOB. Per Internal Medicine team note, the patient called EMS due to SOB, and was saturating around 80% at home. She was given DuoNebs on the way to hospital and, when she presented to the ED, was saturating at 84% on high-flow CPAP. At this point, she was already altered, and was intubated. Internal Medicine team could not obtain further history due to patient already being intubated during their evaluation. Of note, patient has multiple prior hospitalizations for similar presentations of acute hypoxic respiratory failure including in November 2023 and September 2023. In the ED, vitals showed: BP 200/76 HR 79 RR 20 Temp 98.6 SpO2 84% on high flow CPAP, ED Course: CBC showed high WBC 13.5, and low Hgb 11.1 (MCV 96, RDW 63.4). Coagulation panel showed critically elevated D-dimer 2630 but was otherwise within normal limits. ABG showed normal pH 7.37, normal pCO2 42, normal PO2 97, and normal HCO3 24. CMP showed high BUN 39, critically elevated creatinine 6.4, critically low EGFR 6, high lactic acid 4.1, high blood glucose 184, low corrected calcium 7.7, c ritically elevated troponin I 0.046, critically elevated BNP 2005, high TSH 6.61, and low free T4 0.84. UA showed turbid orange urine with a basic pH of 8.0. It also showed 2+ urine protein, 2+ urine blood, high urine RBC 502, high urine WBC 1255, high urine squamous epithelial cells 29, but no urine bacteria. UDS was negative. Rapid RSV was negative. Imaging: Chest x-ray showed moderate congestive heart failure with prominent vascular congestion and perihilar basilar edema. Head CT was unremarkable. Chest CT showed bilateral thyroid nodules, mild heart failure with moderate enlargement of the cardiac contour, bibasilar pneumonia, numerous bilateral positioned metastatic pulmonary nodules, small bilateral pleural effusions, and cholelithiasis. EKG showed old UT. In the ED, patient was received methylprednisone 125 Mg IV x 1, bolus fluid 1 L at the rate 250 cc/h, cefixime 2 g IV x 1, and was started on vancomycin. The patient was intubated and admitted to ICU for further management of acute hypoxic hypercapnic respiratory failure secondary to COPD exacerbation. We, the nephrology team, were consulted for the patient's combined respiratory and metabolic acidosis and need for urgent hemodialysis due to ESRD status. Cardiology is also following. Interval History 11/12/2024: No overnight events. Patient seen and examined at bedside; she remains intubated and unable to respond to questioning. Patient could not receive hemodialysis yesterday due to being unable to be moved up to ICU. WBC increased from 13.5 to 16.5 and Hgb decreased from 11.1 to 10.0. Other notable worsening labs include Na 131, K 6.8, anion gap 18, BUN increased from 39 to 61, creatinine increased from 6.4 to 7.9, phosphorus 7.8, and troponins uptrended from 0.089 to 0.587. CXR shows new significant bibasilar pneumonia. Hemodialysis for 3.5 hours planned for today. 11/13/2024: Patient seen and examined at bedside in ICU. she remains intubated, however sedation has been decreased. 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 K 5.6 from 6.8, BUN 42 from 61, Cr 4.8 from 7.9. WBC downtrending 10 from 16. BP 107/42, CXR with bibasilar pna, significant RLL consolidation. continues on CTX 1 gm. NO HD today. 11/14/2024: No overnight events. Patient seen and examined at bedside. She is no longer intubated but is only able to mouth words without making any sounds, making it difficult to ask her how she is doing or if she has any new complaints. Labs showed Hgb 9.5, Plt Count 106, APTT 54.2, ABG pH 7.46, Na 130, K 5.0, Cl 87, BUN 52, creatinine 5.9, eGFR 7, corrected Ca 8.5, Phos 7.4, and troponin I 3.023 (downtrending). EKG showed atrial fibrillation with aberrant conduction or VPCs, moderate intraventricular conduction delay, and ST deviation with marked T-wave abnormality (possible lateral ischemia but cardiology believes it is old). Patient continues to receive IV Rocephin for her pneumonia with right lower lobe consolidation seen on 11/13 CXR. An echocardiogram and repeat CXR have been ordered. Patient will be given Epogen and will be receiving HD today. 11/15/2024: Patient seen and examined at bedside in ICU. patient failed extubation attempt yesterday. recurrent tachyarrythmia, reintubated, plan for cath on thursday with CARDS. Pt is intubated not responding to voice. Cr 4.2 BUN 27 from 52 phos 6.5. BP 132/61. No HD today. 11/16/2024: No overnight events. Patient seen and examined at bedside; she continues to be intubated and is unable to comment on her well-being or endorse new complaints or symptoms. Notable labs today include Hgb 9.0, APTT 66.7, blood pH 7.29, Na 127, Cl 88, BUN bump to 46 from 27, creatinine bump to 5.1 from 4.2, eGFR drop to 8 from 11, and phosphorus bump to 8.0 from 6.5. 11/16 CXR showed moderate heart failure with findings suggestive of superimposed pneumonia at the lung bases. Her abdomen also appears more distended today. Patient is having cardiac catheter performed by Dr. Escudero at 11:30 AM today with plans to extubate once the procedure is complete and patient is hemodynamically stable. From a nephrology standpoint, patient will be receiving HD today. Exam Vital Signs Temp Pulse Resp BP Pulse Ox O2 Del Method O2 Flow Rate 97.2 F 70 18 102/43 L 100 Mechanical Ventilation 80 11/16/24 08:00 11/16/24 08:51 11/16/24 06:23 11/16/24 08:51 11/16/24 08:51 11/16/24 04:00 11/11/24 04:35 FiO2 28 11/16/24 08:00 Narrative Exam General: Intubated. Unable to assess A&O status due to patient's inability to speak, no acute distress. Skin: Some skin break down on LUE wrist fistula. Warm, dry. Head: Normocephalic, atraumatic. Eyes: EOMI, anicteric. Cardiovascular: Regular rate and rhythm, no murmur, no JVD or carotid bruits. +S1/S2. Respiratory: Decreased breath sounds at the base. No crackles, no wheezing. No accessory muscle use. Gastrointestinal: Abdomen appears more distended than it did yesterday. Soft, nontender, non-distended, no palpable masses. Extremities: RUE hand edema> LUE edema cool to touch. 2+ dorsal pedalis, UE in restraints. Neuro: Deferred. Objective Labs 11/16/24 04:39 11/16/24 18:45 Labs: Laboratory Results - last 24 hr 11/12/24 11/15/24 11/16/24 07:35 13:50 01:10 WBC RBC Hgb Hct MCV MCH MCHC RDW Std Deviation Plt Count Neut % (Auto) Lymph % (Auto) [place] % (Auto) Eos % (Auto) Baso % (Auto) Neut # (Auto) Lymph # (Auto) [place] # (Auto) Eos # (Auto) Baso # (Auto) Immature Gran # (Auto) Absolute Nucleated RBC Immature Gran % Nucleated RBC % APTT 55.4 H D 40.8 H D Puncture Site Cancelled ABG pH Cancelled ABG pCO2 Cancelled ABG pO2 Cancelled ABG HCO3 Cancelled ABG O2 Saturation Cancelled ABG Base Excess Cancelled Oxygen Liter Flow Cancelled FiO2 Cancelled Sodium Potassium Chloride Carbon Dioxide Anion Gap BUN Creatinine Estim Creat Clear Calc eGFR BUN/Creatinine Ratio Glucose Calculated Osmolality Calcium Corrected Calcium Phosphorus Albumin Hepatitis A IgM Ab Non Reactive Hep Bs Antigen Non Reactive Hep Bs Antibody NonReact(Not Immune) L Hep B Core IgM Ab Non Reactive Hepatitis C Antibody Non Reactive 11/16/24 11/16/24 04:39 05:20 WBC 10.7 D RBC 3.08 L Hgb 9.0 L Hct 27.8 L MCV 90 MCH 29.2 MCHC 32.4 RDW Std Deviation 60.2 H Plt Count 157 D Neut % (Auto) 68 Lymph % (Auto) 18 [place] % (Auto) 10 Eos % (Auto) 2 Baso % (Auto) 0 Neut # (Auto) 7.2 Lymph # (Auto) 2.0 [place] # (Auto) 1.1 H Eos # (Auto) 0.2 Baso # (Auto) 0.0 Immature Gran # (Auto) 0.14 H Absolute Nucleated RBC 0.02 H Immature Gran % 1 H Nucleated RBC % 0 APTT Puncture Site Left Brachial ABG pH 7.29 L D ABG pCO2 51 H D ABG pO2 234 H D ABG HCO3 24 ABG O2 Saturation 100 H ABG Base Excess -2 Oxygen Liter Flow FiO2 40 Sodium 127 L Potassium 4.6 Chloride 88 L Carbon Dioxide 24.4 Anion Gap 15 BUN 46 H Creatinine 5.1 H* D Estim Creat Clear Calc 9.2 L eGFR 8 L* BUN/Creatinine Ratio 9 L Glucose 100 Calculated Osmolality 267 L Calcium 8.6 Corrected Calcium 9.0 Phosphorus 8.0 H Albumin 3.5 Hepatitis A IgM Ab Hep Bs Antigen Hep Bs Antibody Hep B Core IgM Ab Hepatitis C Antibody ABG Interpretation ABG results: 11/11/24 11/11/24 11/12/24 04:01 07:38 04:55 ABG pH 7.14 L* 7.37 D 7.26 L D ABG pCO2 71 H* 42 D 44 ABG pO2 116 H 97 95 ABG HCO3 24 24 20 ABG O2 Saturation 97 99 H 98 ABG Base Excess -6 L -1 -7 L 11/12/24 11/13/24 11/14/24 07:35 04:13 04:35 ABG pH Cancelled 7.42 D 7.46 H ABG pCO2 Cancelled 48 40 ABG pO2 Cancelled 79 L 106 D ABG HCO3 Cancelled 31 H 29 H ABG O2 Saturation Cancelled 97 99 H ABG Base Excess Cancelled 6 H 4 H 11/15/24 11/16/24 04:58 05:20 ABG pH 7.47 H 7.29 L D ABG pCO2 39 51 H D ABG pO2 100 234 H D ABG HCO3 29 H 24 ABG O2 Saturation 99 H 100 H ABG Base Excess 5 H -2 Quality Measures Quality Measures none Advance care planning discussed with:: patient Assessment & Plan Assessment Current Active Medications: Generic Name Dose Route Start Last Admin Trade Name Freq PRN Reason Stop Dose Admin Acetaminophen 650 mg 11/11/24 05:17 Acetaminophen 325 Mg Tablet PO 12/11/24 05:16 Q6H PRN Fever >100.5 Albuterol/Ipratropium 3 ml 11/11/24 07:00 11/16/24 06:22 Albuterol/Ipratropium (Duoneb) Rt Poonam 3 Ml Nebu INH 12/11/24 06:59 3 ml Q4HRRT RAYO Administration Amiodarone HCl 200 mg 11/15/24 21:00 11/16/24 08:31 Amiodarone Hcl 200 Mg Tablet NG 12/15/24 20:59 Not Given BID RAYO Aspirin 81 mg 11/11/24 09:00 11/15/24 10:18 Aspirin 81 Mg Chew NG 12/11/24 08:59 81 mg QDAY RAYO Administration Atorvastatin Calcium 40 mg 11/11/24 21:00 11/15/24 20:23 Atorvastatin Calcium 20 Mg Tablet NG 12/11/24 20:59 40 mg HS RAYO Administration Calcium Carbonate 600 mg 11/11/24 09:00 11/15/24 20:23 Calcium Carbonate 600 Mg Tablet NG 12/11/24 08:59 600 mg BID RAYO Administration Clopidogrel Bisulfate 75 mg 11/14/24 09:00 11/16/24 08:31 Clopidogrel Bisulfate 75 Mg Tablet PO 12/14/24 08:59 Not Given QDAY RAYO Dextrose 25 ml 11/12/24 06:24 Dextrose 50%-Water Inj 50 Ml Syringe IV 12/12/24 06:23 Q15MIN PRN BG 50-70 responsive npo pt Dextrose 50 ml 11/12/24 06:24 Dextrose 50%-Water Inj 50 Ml Syringe IV 12/12/24 06:23 Q15MIN PRN BG <50 OR BG <70 & pt unresponsive Famotidine 20 mg 11/11/24 09:00 11/15/24 10:16 Famotidine Inj 10 Mg/Ml Vial 2 Ml IVP 12/11/24 08:59 20 mg QDAY RAYO Administration Protocol Glucagon 1 mg 11/12/24 06:24 Glucagon Inj 1 Mg Vial IM Q15MIN PRN BG <70, and no IV access Hydralazine HCl 10 mg 11/11/24 05:30 Hydralazine Inj 20 Mg/Ml Vial IVP 12/11/24 05:29 Q6H PRN SBP>180 Propofol 1,000 mg in 100 mls @ 2.072 mls/hr 11/11/24 04:27 11/13/24 08:48 Diprivan Ivpb IV 12/11/24 03:37 0 mcg/kg/min .Q24H PRN 0 mls/hr Per Protocol Titration Protocol 5 MCG/KG/MIN Ceftriaxone Sodium/Dextrose 1 gm in 50 mls @ 100 mls/hr 11/11/24 11:27 11/15/24 14:05 Rocephin/D5w 1gm Iv Premix IV 11/18/24 11:26 Infused QDAY RAYO Infusion Norepinephrine/Dextrose 8 mg in 250 mls @ 6.476 mls/hr 11/11/24 16:05 11/13/24 14:59 Levophed In D5w 8mg/250ml IV 12/11/24 16:04 0 mcg/kg/min .Q24H PRN 0 mls/hr PER PROTOCOL Titration Protocol 0.05 MCG/KG/MIN Dexmedetomidine/Sodium Chloride 400 mcg in 100 mls @ 3.375 mls/hr 11/13/24 09:53 11/16/24 08:00 Precedex Ivpb IV 12/13/24 09:42 1.4 mcg/kg/hr .Q24H PRN 23.625 mls/hr Per PROTOCOL Titration Protocol 0.2 MCG/KG/HR Heparin Sodium/Dextrose 25,000 unit in 250 mls @ 8.1 mls/hr 11/13/24 15:15 11/16/24 02:14 Heparin In D5w Ivpb IV 11/16/24 10:00 13 units/kg/hr .Q24H RAYO 8.775 mls/hr Titration Protocol 12 UNITS/KG/HR Albumin Human 25 gm in 100 mls @ 100 mls/min 11/14/24 08:47 11/14/24 18:41 Albuminar-25 Ivpb IV Infused PRN PRN Infusion DIALYSIS Fentanyl Citrate 2,500 mcg in 250 mls @ 2.5 mls/hr 11/16/24 06:31 11/16/24 08:29 Sublimaze Inj 2,500 Mcg/250 Ml Bag IV 11/21/24 06:30 25 mcg/hr .Q24H PRN 2.5 mls/hr PER PROTOCOL Titration Protocol 25 MCG/HR Metoprolol Tartrate 25 mg 11/14/24 11:30 11/15/24 20:24 Metoprolol Tartrate 25 Mg Tablet NG 12/14/24 11:29 25 mg BID RAYO Administration Midodrine 10 mg 11/11/24 22:00 11/16/24 05:37 Midodrine 5 Mg Tablet NG 12/11/24 21:59 10 mg TID RAYO Administration Ondansetron HCl 4 mg 11/11/24 05:17 Ondansetron Inj 2 Mg/Ml Inj 2 Ml IVP 12/11/24 05:16 Q6H PRN NAUSEA OR VOMITING Protocol Patiromer 8.4 gm 11/13/24 10:45 11/15/24 10:16 Patiromer Calcium 8.4 Gm Packet (Non-Form) PO 12/13/24 10:44 8.4 gm DAILY RAYO Administration Pharmacy Consult 1 each 11/11/24 05:27 Pharmacy Renal Dose Adjustment 1 Ea XX 12/11/24 05:26 PRN PRN CONSULT Sevelamer Carbonate 0.8 gm 11/14/24 08:00 11/16/24 08:31 Sevelamer Carbonate 0.8 Gm Packet (Non-Formulary) NG 12/14/24 07:59 Not Given TIDWM RAYO Sodium Chloride 3 ml 11/11/24 04:43 Sodium Chloride Rt Poonam 0.9% 3 Ml Nebu INH 12/11/24 04:42 PRN PRN SOLN Plan Mirella Grewal is a 74-year-old F with a PMH of CHF, coronary artery disease with multiple MIs s/p stents, COPD on 3 L home oxygen, ESRD on hemodialysis, Thursday, Thursday, , Thursday, and A-fib with pacemaker, who was brought in by EMS with a chief complaint of acute SOB. The patient was intubated and admitted to ICU for further management of acute hypoxic hypercapnic respiratory failure secondary to COPD exacerbation. Patient is planned for hemodialysis today after cardiac catheterization procedure is completed. #Combined respiratory and metabolic acidosis #ESRD on HD (Thu/Thu/Ann [place]/Thu) Admission ABG showed pH 7.14 and pCO2 71, elevated lactic acid 4.1 Admission creatinine 6.4 (baseline: possibly 4.8-4.9), BUN 39, eGFR 6 11/12/24: worsening kidney function and toxic buildup due to no HD yesterday, creatinine 7.9, BUN 61, K 6.8, phosphorus 7.8 11/12/24: received HD 11/13/24: Cr 4.8 from 7.9, BUN 42 from 61, K 5.6 from 6.8 (improved kidney function after 11/12 HD) 11/14/24: Cr 5.9 from 4.8, BUN 52 from 42, K 5.0 from 5.6, Hgb 9.5, Plt Count 106, ABG pH 7.46 from 7.42, phosphorus 7.4 from 5.8 11/15/24: Cr 4.8 from 5.9, BUN 27 from 52, K 4.3, BP soft 90s /40s 11/16/24: Cr 4.2 from 5.1, BUN 46 from 27, K 4.6, last BP at 12:14 was 94/44 Patient has a left-sided fistula and receives her HD on Treatment Plan -HD today, after cardiac catheterization is completed -Strict I's & O's -Avoid nephrotoxic medications 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, requires vascular surgery follow up Fistula remains patent and thrill is palpable Treatment Plan -Follow-up with vascular surgery -Continue to monitor #Acute hypoxic respiratory failure - intubated #CAP #Possible CHF exacerbation, likely 2/2 volume overload in the setting of ESRD #Pleural Effusion Critically elevated BNP 2005 with elevated troponin I 0.046 CXR showed moderate congestive heart failure with prominent vascular congestion and perihilar basilar edema Chest CT showed mild heart failure with moderate enlargement of the cardiac contour with small bilateral pleural effusions 11/13 CXR showed bibasilar pneumonia with significant RLL consolidation 11/13 EKG showed a change from sinus rhythm to atrial fibrillation with intermittent pacemaker rhythm 11/14 troponin downtrended to 3.023 from 4.088 Treatment Plan -Plan for extubation after cardiac catheterization today assuming hemodynamically stable -Continue management per primary care team #SVT #Recurrent Tachyarrythmia #Hx of A-fib, on Eliquis and s/p pacemaker Treatment Plan -Cardiac catheterization today -Continue management per primary care team #Electrolyte abnormalities #Hypocalcemia, likely 2/2 ESRD status (resolving) #Mild hyponatremia #Hypochloremia Treatment Plan -Continue NG calcium carbonate BID per primary care team -Monitor electrolyte levels, correct as needed -Continue Veltassa to treat possible hyperkalemia -Continue sevelamer to treat possible hyperphosphatemia #Normocytic anemia, likely 2/2 ESRD status #Thrombocytopenia Admission Hgb 11.1 (MCV 96, RDW 63.4) 11/12/24: Hgb dropped to 10.0 -s/p Epoetin 10,000 U x1 11/14/24: Hgb 9.5, platelet count down to 106 from 134 11/16/24: Hgb 9.0 Treatment Plan -Monitor H&H, transfuse if Hgb<7 #Other medical problems #Acute encephalopathy likely 2/2 CO2 narcolepsy in the setting of COPD exacerbation #Acute hypoxic hypercapnic respiratory failure likely 2/2 CHF exacerbation vs. COPD exacerbation vs. both #COPD exacerbation #Community-acquired pneumonia #Leukocytosis- downtrending #CAD s/p stents Treatment Plan -Continue management per primary care team Hospital Management: Disposition: HD today after cardiac catheterization Diet: NPO Lines: Left IJ central line, peripheral lines DVT Prophylaxis: Eliquis 5 mg BID CODE STATUS: Full Code Thank you for allowing us to be part of the patient's care. I have examined the patient and conferred with the nephrology attending, Dr. Mishra, regarding them. Tim Pineda, PGY-1 Internal Medicine Attending Provider Attestation/Addendum Patient seen and examined with resident physician Dr. Pineda. Note reviewed, agree with findings and recommendations. Patient currently seen in ICU. On ventilator. Patient currently seen on dialysis. Tolerating dialysis without any problems. Hemodialysis for 3 hours, 3K, ultrafiltration 2-3 L, Epogen 6000, no heparin ordered. Plan of care discussed with the dialysis nurse. Please see dialysis flowsheet for further details. Postdialysis possible extubation. Spoke to ICU team.
[2024-11-16] MEDS: METOPROLOL TARTRATE INJ 1 MG/ML AMP 5 ML 5 MG IVP ×4 (09:47→22:07)
[2024-11-16] MEDS: AMIODARONE HCL 200 MG TABLET NG (10:06)
[2024-11-16] MEDS: FAMOTIDINE INJ 10 MG/ML VIAL 2 ML 20 MG IVP (10:11)
[2024-11-16] MEDS: CALCIUM CARBONATE 600 MG TABLET NG (10:11)
[2024-11-16] MEDS: cefTRIAXone/D5w 1gm IV premix 1 GM/50 ML BAG IV (10:12)
[2024-11-16] MEDS: ASPIRIN 81 MG CHEW NG (10:12)
[2024-11-16] MEDS: CLOPIDOGREL BISULFATE 75 MG TABLET PO (10:14)
[2024-11-16 10:31] LABS: Partial Thromboplastin Time 66.7 Seconds (22.0-36.0)
[2024-11-16] MEDS: Milk Of Magnesia Susp 30 ML UDC PO (10:46)
[2024-11-16] MEDS: HALOPERIDOL LACT INJ 5 MG/ML VIAL IV (10:52)
[2024-11-16] MEDS: RINGERS LACTATED 500 ML 500 ML 999 ML IV (11:49)
[2024-11-16 12:07] LABS: Base Excess 0 (-3-3); HCO3 24 mEq/L (20-26); Inspired Oxygen, FIO2 50 %; O2 Saturation 100 % (91-98); PCO2 39 mmHg (32.0-48.0); PO2 160 mmHg (83-108); pH, Arterial 7.41 (7.35-7.45)
[2024-11-16] MEDS: Norepinephrine/D5W 8mg/250ml 8 MG/250 ML BAG 6.476 MG IV (12:14)
[2024-11-16 12:29] LABS: Allen Test Not Performed; Puncture Site Right Brachial
[2024-11-16] MEDS: Heparin/D5w 25K 250 ML Ivpb 25,000 UNIT/250 ML BAG 9.23 UNIT IV (12:50)
--- NOTE | 2024-11-16 14:30 | PC.SS ---
Update: Patient receiving dialysis session today.
--- NOTE | 2024-11-16 15:37 | PC.SS ---
Update: Patient extubated today transitioned to BI-PAP. Patient on pressor support. On Heparin drip. OG tube removed. Restraints in place.
[2024-11-16] MEDS: AMPICILLIN/SULBAC INJ 3 GM in SODIUM CHLORIDE 0.9% (POP) 100 ML IV (18:10)
[2024-11-16] MEDS: AMIODARONE 150 MG IVPB 150 MG/100 ML BAG 600 MG IV (18:12)
[2024-11-16] MEDS: DEXMEDETOMIDINE 400 MCG IVPB 400 MCG/100 ML BAG 5.063 MCG IV (18:45)
[2024-11-16] MEDS: AMIODARONE 360 MG IVPB 360 MG/200 ML BAG 33.333 MG IV (18:50)
--- NOTE | 2024-11-16 19:11 | PD.RESPRO ---
Documentation for date of: 11/16/24 Subjective Subjective Interval history: The patient is a 74-year-old female with significant past medical history of CHF, coronary artery disease with multiple MIs s/p stents, COPD on 3 L home oxygen, ESRD on hemodialysis, Thursday, Thursday, , Thursday, A-fib with pacemaker, brought in by EMS with chief complaint of acute SOB. The patient called EMS due to SOB, and she was saturating on 80s at her home. She was given DuoNeb on the way to hospital, and when she presented to ED, her saturation was 84 on high flow CPAP. She was already altered, and was intubated. Further history were unobtainable, as patient was already intubated during my evaluation. In the ED her vitals were significant for a blood pressure of 200/76, pulse 79, RR 20, labs are significant for white count 13.5, RBC 3.88, hemoglobin 11.1, D-dimer 2630, ABG revealed pH of 7.14, pCO2 71, pO2 116, bicarb 24, sodium 135, potassium 4.6, BUN 39, creatinine 6.4, lactic acid 4.1, corrected calcium 7.7, magnesium 2.2, AST/ALT/ALP less than 10, less than 10/05/2027 respectively. Ammonia was 17, troponin 0.046, CRP less than 0.5, BNP 2006, lipid panel revealed LDL 116, lipase 68, TSH 6.61, free T4 0.84. UA revealed orange urine, 2+ protein, 2+ blood, leukocyte Estrace positive, RBC 502, WBC 1255, chest x-ray revealed right lower lobe pneumonia, EKG revealed old MA. The patient received methylprednisone 125 Mg IV x 1, bolus fluid 1 L at the rate 250 cc/h, cefixime 2 g IV x 1, and started on vancomycin. The patient was intubated and admitted to ICU for further management of acute hypoxic hypercapnic respiratory failure secondary to COPD exacerbation. 11/11/2024: Patient is sedated and on mechanical ventilator. Most of the history is taken from the chart review and from the nurse at the bedside. Patient supposedly lives alone and developed shortness of breath, for which she called the EMS. By the time EMS went her home she was severely short of breath for which she was given DuoNebs and was kept on CPAP following which she was brought to the hospital where she was given steroids, sedated and intubated. Later central line was placed. No acute overnight events. Vitals are stable and patient is on propofol and fentanyl drip without any vasopressor support. Started on methylprednisolone 60 Mg IV once daily, ceftriaxone and azithromycin. Repeat ABG after the intubation is within normal limits. Will continue mechanical ventilation for now and monitor the patient. Later in the evening, patient is found to be mildly hypotensive for which low-dose Levophed was started and patient was given a dose of midodrine 10 Mg through orogastric tube. 11/12/2024: Patient is seen and examined at bedside in the ICU. No acute overnight events. Sedated and on mechanical ventilator, VC/AC mode with tidal volume 380, PEEP 5, FiO2 30% and saturating around 95%. Vitals are stable and patient is mildly hypotensive, started on Levophed which was stopped around 7 AM this morning, maintain blood pressures only on minimal doses of Levophed 0.05 mcg/kg/min. Labs done this morning showed mild leukocytosis, sodium 131, potassium 5.5, BUN 61, creatinine 7.9, bicarb 19.2, phosphorus 7.8. ABG showed metabolic acidosis Patient missed her dialysis session yesterday which was started this morning and Levophed is restarted to support the blood pressure during dialysis. Tolerated dialysis well on 2 L of fluid is taken. Patient was changed from VC/AC mode to pressure support mode. Will repeat ABG tomorrow morning and if patient is hemodynamically stable, able to respond after weaning of the sedation, planning to wean her off the mechanical ventilator. 11/13/2024: Patient seen this morning, at a RASS of 0 able to follow commands well, interactive and trying to communicate. Initially plan was to extubate today. Later that morning around 9:40 am patient appeared anxious and went into SVT rate up to 180s with hypoxia in the 70s while on pressure support. Patient was switched back to AC/VC on 100% FiO2. Patient was given metoprolol tartrate 5 mg IV x1, adenosine 6 mg IV x1, furosemide 40 mg IV x1, diltiazem 10 mg IV x1, and midazolam 1 mg IV x1, after which patient had resolution of heart rate and rhythm. Patient was then placed on Precedex drip. Will keep patient sedated overnight and try for extubation tomorrow. Started Veltassa for hyperkalemia, follow up potassium levels. Patient will have dialysis tomorrow. Troponin was repeated in the afternoon which was elevated at 4.088 therefore Plavix loading dose was given 300 mg x1 followed by 75 mg qday and heparin drip was started after discussed with Dr. Escudero. 11/14/2024: Patient is seen and examined at bedside in the ICU. Initial plan was to extubate patient this morning but after decreasing the sedation, patient became more interactive and is trying to communicate with the hand gestures and trying to speak. Patient was kept on pressure support mode and she was tolerating it well. Later suddenly noted multiple episodes of SVT and VT. Patient was given 300 mg bolus of amiodarone and was started on amiodarone drip. Later no further episodes of arrhythmias were noted during the day. Patient was kept back on the VC/AC mode. Consulted earth sciences professor, Dr. Escudero who is following the patient, recommended that he will do cardiac cath on 11/16/2024. So we will plan to extubate patient once the cardiac cath is done as patient is going into arrhythmias whenever trying to wean her off the sedation and extubate. Patient is taking metoprolol 25 mg twice daily at home. Echocardiogram done on 11/13/2024 showed EF of 30%. So resumed metoprolol to tartrate 25 mg twice daily. Will continue telemetry monitoring 11/15/2024: Patient is seen and examined at bedside in the ICU. No acute overnight events. No further episodes of SVT and VT noted. Patient continued to be on the amiodarone drip and heparin drip. Pending cardiac cath tomorrow around 11:[address] Escudero. Noted to have mild respiratory alkalosis for which respiratory rate is decreased from 20-18. Labs done this morning showed thrombocytopenia, 97,000. As patient is on heparin drip and also noted to have downtrending platelet count since the start of heparin drip, will do workup for heparin-induced thrombocytopenia. Will keep patient on n.p.o. since midnight. Transition to oral amiodarone 200 mg twice daily based on Dr. Escudero's recommendations. Will stop heparin drip around 1 hour before the cardiac catheterization. Talked to her friend who is the point of contact who gave consent for the cardiac catheterization and also patient when she is awake she wrote down on the patient that she wants to undergo cardiac catheterization. Planning to extubate once cardiac catheterization is done if the patient is hemodynamically stable.Will continue to monitor platelet count and discontinue heparin drip of the platelet counts downtre 11/16/2024: Patient is seen and examined at bedside in the ICU. No acute overnight events. Patient is noted to be agitated overnight for which she was kept on high doses of fentanyl and Precedex. Otherwise patient is doing good and ABG done this morning showed mild respiratory acidosis. Patient was supposed to get cardiac cath today but the procedure is postponed for now. As patient is hemodynamically stable and is on minimal requirement of FiO2, planned to extubate. Patient was started on pressure support and titrated to wean her off sedation. Patient tolerated pressure support well and passed spontaneous breathing trial following which patient was extubated on 11/16/2024 around 10:20 AM. Patient is extubated to BiPAP. Later patient was noted to have multiple episodes of short lasting SVT and VT for which a dose of metoprolol 5 mg and Haldol, Seroquel is given as patient appears to be delirious and continuously got agitated saying that someone is trying to kill her. Patient was restarted on Precedex. Around 3 PM patient was started on the dialysis during which she needed vasopressor support for shock. ABG done after extubation is within normal limits. Patient was weaned off the BiPAP and kept on the oxy mask. Patient continued to develop SVT and bradycardia episodes for which patient was given amiodarone 150 mg bolus and started on drip. Biology Department Chair, Dr. Escudero is following the patient and recommended to continue drip. ICD interrogation was done and showed multiple episodes of VT for which shock was delivered. Found to have Acinetobacter Iwofii on sputum culture for which patient was started on Unasyn Exam Vital Signs Temp Pulse Resp BP Pulse Ox O2 Del Method O2 Flow Rate 97.1 F 73 26 H 100/51 L 84 L Mechanical Ventilation 5 11/16/24 16:52 11/16/24 18:50 11/16/24 18:30 11/16/24 18:50 11/16/24 18:30 11/16/24 04:00 11/16/24 18:11 FiO2 100 11/16/24 16:52 Narrative Exam General: Sedated and on oxymask. HEENT: Normocephalic, atraumatic, mucous membranes dry Heart: Regular rate and rhythm, no murmurs. Frequent arrhythmias noted Lungs: Clear to auscultation with no wheezing or crackles. Abdomen: Soft, nondistended, nontender, positive bowel sounds. ?No guarding or rebound tenderness. Neurologic: Delirious and not able to follow the commands Extremities: No edema. Left AV fistula noted. 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 Right upper extremity swelling Skin: No rash. ecchymotic patches noted on right arm and at the site of IV catheters Objective Labs 11/17/24 08:20 11/17/24 02:29 Labs: Laboratory Results - last 24 hr 11/15/24 11/16/24 11/16/24 13:50 01:10 04:39 WBC 10.7 D RBC 3.08 L Hgb 9.0 L Hct 27.8 L MCV 90 MCH 29.2 MCHC 32.4 RDW Std Deviation 60.2 H Plt Count 157 D Neut % (Auto) 68 Lymph % (Auto) 18 Dodge % (Auto) 10 Eos % (Auto) 2 Baso % (Auto) 0 Neut # (Auto) 7.2 Lymph # (Auto) 2.0 Dodge # (Auto) 1.1 H Eos # (Auto) 0.2 Baso # (Auto) 0.0 Immature Gran # (Auto) 0.14 H Absolute Nucleated RBC 0.02 H Immature Gran % 1 H Nucleated RBC % 0 APTT 40.8 H D Puncture Site ABG pH ABG pCO2 ABG pO2 ABG HCO3 ABG O2 Saturation ABG Base Excess FiO2 Sodium 127 L Potassium 4.6 Chloride 88 L Carbon Dioxide 24.4 Anion Gap 15 BUN 46 H Creatinine 5.1 H* D Estim Creat Clear Calc 9.2 L eGFR 8 L* BUN/Creatinine Ratio 9 L Glucose 100 Calculated Osmolality 267 L Calcium 8.6 Corrected Calcium 9.0 Phosphorus 8.0 H Albumin 3.5 Hepatitis A IgM Ab Non Reactive Hep Bs Antigen Non Reactive Hep Bs Antibody NonReact(Not Immune) L Hep B Core IgM Ab Non Reactive Hepatitis C Antibody Non Reactive 11/16/24 11/16/24 11/16/24 05:20 09:06 11:55 WBC RBC Hgb Hct MCV MCH MCHC RDW Std Deviation Plt Count Neut % (Auto) Lymph % (Auto) Dodge % (Auto) Eos % (Auto) Baso % (Auto) Neut # (Auto) Lymph # (Auto) Dodge # (Auto) Eos # (Auto) Baso # (Auto) Immature Gran # (Auto) Absolute Nucleated RBC Immature Gran % Nucleated RBC % APTT 66.7 H D Puncture Site Left Brachial Right Brachial ABG pH 7.29 L D 7.41 D ABG pCO2 51 H D 39 D ABG pO2 234 H D 160 H D ABG HCO3 24 24 ABG O2 Saturation 100 H 100 H ABG Base Excess -2 0 FiO2 40 50 Sodium Potassium Chloride Carbon Dioxide Anion Gap BUN Creatinine Estim Creat Clear Calc eGFR BUN/Creatinine Ratio Glucose Calculated Osmolality Calcium Corrected Calcium Phosphorus Albumin Hepatitis A IgM Ab Hep Bs Antigen Hep Bs Antibody Hep B Core IgM Ab Hepatitis C Antibody ABG Interpretation ABG results: 11/11/24 11/11/24 11/12/24 04:01 07:38 04:55 ABG pH 7.14 L* 7.37 D 7.26 L D ABG pCO2 71 H* 42 D 44 ABG pO2 116 H 97 95 ABG HCO3 24 24 20 ABG O2 Saturation 97 99 H 98 ABG Base Excess -6 L -1 -7 L 11/12/24 11/13/24 11/14/24 07:35 04:13 04:35 ABG pH Cancelled 7.42 D 7.46 H ABG pCO2 Cancelled 48 40 ABG pO2 Cancelled 79 L 106 D ABG HCO3 Cancelled 31 H 29 H ABG O2 Saturation Cancelled 97 99 H ABG Base Excess Cancelled 6 H 4 H 11/15/24 11/16/24 11/16/24 04:58 05:20 11:55 ABG pH 7.47 H 7.29 L D 7.41 D ABG pCO2 39 51 H D 39 D ABG pO2 100 234 H D 160 H D ABG HCO3 29 H 24 24 ABG O2 Saturation 99 H 100 H 100 H ABG Base Excess 5 H -2 0 Quality Measures Quality Measures none Advance care planning discussed with:: other Assessment & Plan Assessment Current Active Medications: Generic Name Dose Route Start Last Admin Trade Name Freq PRN Reason Stop Dose Admin Acetaminophen 650 mg 11/11/24 05:17 Acetaminophen 325 Mg Tablet PO 12/11/24 05:16 Q6H PRN Fever >100.5 Albuterol/Ipratropium 3 ml 11/11/24 07:00 11/16/24 18:06 Albuterol/Ipratropium (Duoneb) Rt Poonam 3 Ml Nebu INH 12/11/24 06:59 3 ml Q4HRRT RAYO Administration Amiodarone HCl 200 mg 11/15/24 21:00 11/16/24 10:06 Amiodarone Hcl 200 Mg Tablet NG 12/15/24 20:59 200 mg BID RAYO Administration Aspirin 81 mg 11/11/24 09:00 11/16/24 10:12 Aspirin 81 Mg Chew NG 12/11/24 08:59 81 mg QDAY RAYO Administration Atorvastatin Calcium 40 mg 11/11/24 21:00 11/15/24 20:23 Atorvastatin Calcium 20 Mg Tablet NG 12/11/24 20:59 40 mg HS RAYO Administration Bisacodyl 10 mg 11/16/24 10:09 11/16/24 10:44 Bisacodyl 10 Mg Supp RI 12/16/24 10:08 10 mg QDAY PRN Administration CONSTIPATION Protocol Calcium Carbonate 600 mg 11/11/24 09:00 11/16/24 10:11 Calcium Carbonate 600 Mg Tablet NG 12/11/24 08:59 600 mg BID RAYO Administration Clopidogrel Bisulfate 75 mg 11/14/24 09:00 11/16/24 10:14 Clopidogrel Bisulfate 75 Mg Tablet PO 12/14/24 08:59 75 mg QDAY RAYO Administration Dextrose 25 ml 11/12/24 06:24 Dextrose 50%-Water Inj 50 Ml Syringe IV 12/12/24 06:23 Q15MIN PRN BG 50-70 responsive npo pt Dextrose 50 ml 11/12/24 06:24 Dextrose 50%-Water Inj 50 Ml Syringe IV 12/12/24 06:23 Q15MIN PRN BG <50 OR BG <70 & pt unresponsive Famotidine 20 mg 11/11/24 09:00 11/16/24 10:11 Famotidine Inj 10 Mg/Ml Vial 2 Ml IVP 12/11/24 08:59 20 mg QDAY RAYO Administration Protocol Glucagon 1 mg 11/12/24 06:24 Glucagon Inj 1 Mg Vial IM Q15MIN PRN BG <70, and no IV access Hydralazine HCl 10 mg 11/11/24 05:30 Hydralazine Inj 20 Mg/Ml Vial IVP 12/11/24 05:29 Q6H PRN SBP>180 Propofol 1,000 mg in 100 mls @ 2.072 mls/hr 11/11/24 04:27 11/13/24 08:48 Diprivan Ivpb IV 12/11/24 03:37 0 mcg/kg/min .Q24H PRN 0 mls/hr Per Protocol Titration Protocol 5 MCG/KG/MIN Norepinephrine/Dextrose 8 mg in 250 mls @ 6.476 mls/hr 11/11/24 16:05 11/16/24 17:24 Levophed In D5w 8mg/250ml IV 12/11/24 16:04 0 mcg/kg/min .Q24H PRN 0 mls/hr PER PROTOCOL Titration Protocol 0.05 MCG/KG/MIN Dexmedetomidine/Sodium Chloride 400 mcg in 100 mls @ 3.375 mls/hr 11/13/24 09:53 11/16/24 16:48 Precedex Ivpb IV 12/13/24 09:42 Infused .Q24H PRN Titration Per PROTOCOL Protocol 0.2 MCG/KG/HR Albumin Human 25 gm in 100 mls @ 100 mls/min 11/14/24 08:47 11/14/24 18:41 Albuminar-25 Ivpb IV Infused PRN PRN Infusion DIALYSIS Fentanyl Citrate 2,500 mcg in 250 mls @ 2.5 mls/hr 11/16/24 06:31 11/16/24 09:36 Sublimaze Inj 2,500 Mcg/250 Ml Bag IV 11/21/24 06:30 Infused .Q24H PRN Titration PER PROTOCOL Protocol 25 MCG/HR Heparin Sodium/Dextrose 25,000 unit in 250 mls @ 8.52 mls/hr 11/16/24 10:45 11/16/24 12:50 Heparin In D5w Ivpb IV 11/30/24 10:44 13 units/kg/hr .Q24H RAYO 9.23 mls/hr Administration Protocol 12 UNITS/KG/HR Ampicillin Sodium/Sulbactam 100 mls @ 200 mls/hr 11/16/24 18:00 11/16/24 18:10 Sodium 3 gm/ Sodium Chloride IV 11/23/24 17:59 200 mls/hr QDAY RAYO Administration Protocol Amiodarone HCl/Dextrose 360 mg in 200 mls @ 16.667 mls/hr 11/16/24 23:10 Nexterone Ivpb IV 11/17/24 23:09 .Q12H RAYO Amiodarone HCl/Dextrose 360 mg in 200 mls @ 33.333 mls/hr 11/16/24 18:45 11/16/24 18:50 Nexterone Ivpb IV 11/17/24 00:44 33.333 mls/hr .Q6H ONE Administration Magnesium Hydroxide 30 ml 11/16/24 10:08 11/16/24 10:46 Milk Of Magnesia Susp 30 Ml Udc PO 12/16/24 10:07 30 ml QDAY PRN Administration CONSTIPATION Protocol Metoprolol Tartrate 25 mg 11/14/24 11:30 11/16/24 09:51 Metoprolol Tartrate 25 Mg Tablet NG 12/14/24 11:29 Not Given BID RAYO Midodrine 10 mg 11/11/24 22:00 11/16/24 15:17 Midodrine 5 Mg Tablet NG 12/11/24 21:59 Not Given TID RAYO Ondansetron HCl 4 mg 11/11/24 05:17 Ondansetron Inj 2 Mg/Ml Inj 2 Ml IVP 12/11/24 05:16 Q6H PRN NAUSEA OR VOMITING Protocol Patiromer 8.4 gm 11/13/24 10:45 11/16/24 10:47 Patiromer Calcium 8.4 Gm Packet (Non-Form) PO 12/13/24 10:44 Not Given DAILY RAYO Pharmacy Consult 1 each 11/11/24 05:27 Pharmacy Renal Dose Adjustment 1 Ea XX 12/11/24 05:26 PRN PRN CONSULT Quetiapine Fumarate 50 mg 11/16/24 09:45 11/16/24 09:55 Quetiapine Fumarate 25 Mg Tablet NG 12/16/24 09:44 50 mg Q12HR RAYO Administration Sevelamer Carbonate 0.8 gm 11/14/24 08:00 11/16/24 18:34 Sevelamer Carbonate 0.8 Gm Packet (Non-Formulary) NG 12/14/24 07:59 Not Given TIDWM RAYO Sodium Chloride 3 ml 11/11/24 04:43 Sodium Chloride Rt Poonam 0.9% 3 Ml Nebu INH 12/11/24 04:42 PRN PRN SOLN Plan The patient is a 74-year-old female with significant past medical history of CHF, coronary artery disease with multiple MIs s/p stents, COPD on 3 L home oxygen, ESRD on hemodialysis, Thursday, Thursday, , Thursday, A-fib with pacemaker, brought in by EMS with chief complaint of acute SOB. The patient was intubated and admitted to ICU for further management of acute hypoxic hypercapnic respiratory failure secondary to COPD exacerbation. Neuro: #Acute encephalopathy - Patient was noted to have encephalopathy due to CO2 narcosis at the time of admission, later CO2 narcosis resolved with mechanical ventilation - Patient was extubated as of 11/16/2024, but still appears to be altered and delirious, thinking that someone is trying to kill her - Likely due to hospital induced delirium Plan - Will continue Precedex drip to keep her alert and calm to keep the RASS score of 0 - Started on Seroquel 25 mg twice daily - Haloperidol as needed - Will try to reorient her CVS: # CAD s/p multiple stents # S/p ICD # HFrEF, EF 30% in 2024 - Though patient presented with acute SOB, was found to have BNP 1999, no JVD or peripheral edema noted - EKG showed paced rhythm with ST elevation in 1, aVL and reciprocal depressions in 2, 3 and aVF suggestive of old MA - ECHO on 11/16/2024 - Findings are consistent with ischemic cardiomyopathy severe LV dysfunction heavy mitral annulus calcification calcification mitral apparatus with moderate to severe mitral stenosis and mild mitral regurgitation. No evidence of significant pulmonary hypertension. Plan - Low-sodium diet - Fluid restriction to 1500 cc daily - Talked to earth sciences professor, Dr. Escudero about the EKG findings and he recommended that ST elevations are from old MA - Patient had history of NSTEMI in September, but rejected cardiac catheterization at that time, patient might be having ongoing ischemia due to which patient is having multiple episodes of SVT/VT - Planned to do cardiac catheterization on 11/16/2024 but not done, planning to do later in this week #Episode of SVT/VT 11/13/2024 Patient was given adenosine 6 mg IV x1, metoprolol 5 mg IV x1, diltiazem 10 mg IV x1 with conversion On 11/15/2023, when trying to wean patient off the sedation and kept on pressure support mode, patient became more agitated and developed multiple episodes of SVT and VT Plan - Continuous telemetry - Keep sedated overnight - Started on metoprolol tartarate 25mg twice daily - Patient is using amiodarone 200 mg twice daily at home, as patient developed recurrent episodes of SVT/VT, started on amiodarone drip on 11/14/2024, and transition to oral amiodarone but as of 11/16/2024, patient was noted to have multiple episodes of SVT, VT which was also confirmed by ICD interrogation and patient noted to receive shock. As the patient is continuously developing episodes of SVT/VT, patient was given amiodarone bolus followed by drip. - Metoprolol tartrate 25 mg IV twice daily # History of atrial fibrillation Patient never had documented episodes of atrial fibrillation but on pacemaker tracing, noted to have atrial fibrillation for which patient was started on amiodarone and Eliquis -Patient is using Eliquis at home - Currently on amiodarone and heparin drip. # NSTEMI, likely type II versus type 1 Troponin is mildly elevated at the time of admission, 0.046 uptrended to 4.000 Though EKG showed changes of ST elevation, they are likely from the old MA - Will continue telemetry monitoring - Started heparin drip - Loading dose Plavix given 300 mg x1 - Start Plavix 75 mg qday - Following with Cardiology, Dr. Escudero - Planning to do cardiac cath later this week Pulmonology: #Acute hypoxic hypercapnic respiratory failure 2/2 #COPD exacerbation, resolved #Pulmonary edema, resolved Likely in the setting of worsening disease or superimposed bacterial infection and pulmonary edema in the setting of ESRD, Ongoing ischemic heart disease Diagnostic test: - Tested negative for influenza A, B and COVID-19 - ABG at the time of admission showed pH 7.14, pCO2 71, PaO2 116, bicarb 24, oxygen saturation 97. - Chest x-ray showed cardiomegaly, infiltrates more on the right basilar area. - Labs showed WBC 13.5 - Tested negative for influenza A and B, COVID-19 - Blood culture and ET secretions culture pending Treatment: - Patient is sedated, intubated and mechanically ventilated on 11/10/2024 - Received methylprednisolone 125 Mg IV x 1 in the ED - Started on methylprednisolone 60 Mg IV daily, completed 5 days on 11/14/2024 - Nebulizations every fourth of every, DuoNebs - Tried to wean the patient off ventilator on 11/13, 11/14 but noted to go to SVT and VT on both days. - Patient was extubated on 11/16/2024 and started on BiPAP and oxygen as needed - Started on Unasyn as patient 80 secretions culture tested positive for Acinetobacter Iwofii GI: - No active problems Renal: #ESRD on HD -Patient is having 4 dialysis sessions per week At the time of admission, pH of 7.14, pCO2 71, lactic acid 4.1 Plan - [employer]er Dr. Mishra consulted, appreciate recommendations - Received HD session on 11/12/2024, 11/14/2024, 11/16/2024 - Will need HD as per her routine schedule - Will avoid nephrotoxic medications and renally dose medications #Hypocalcemia Presented with calcium of 7.7 - Started on calcium carbonate 600 Mg twice daily via NG tube Hematology: #Leukocytosis, resolved Reactive versus steroid versus infective Secondary to pneumonia and COPD exacerbation - Continue to treat underlying cause #Normocytic anemia DDx: Inflammatory anemia due to chronic kidney disease, versus nutritional deficiency versus malabsorption - Workup as an outpatient basis # Thrombocytopenia, resolving - At the time of admission is 177 - Patient is started on heparin drip on 11/13/2024 in view of suspected ongoing acute ischemic heart disease. - Since then, noted to have downtrend in platelet count - Platelet count as of 11/15/2024 is 97,000 and on 11/16/2024 is within normal limits - Suspected HIT in the setting of heparin and thrombocytopenia Plan - Will continue heparin drip for now - HIT panel is sent - Will continue to monitor platelet count and if continues to drop, will hold the heparin drip. ID: #Suspected community-acquired pneumonia - Antibiotic therapy treatment as above - ET secretions culture showed Acinetobacter for which Unasyn was started Health maintenance: Dispo: ICU for further management of acute hypoxic hypercapnic respiratory failure secondary to COPD exacerbation, Pulmonary edema Diet: NPO as of now Lines: Left IJ central line, peripheral lines DVT prophylaxis: Heparin CODE STATUS: Full code Patient plan of care was discussed with the beaming machine operator, Dr. Merritt. Elmer Husain, PGY2 Attending Provider Attestation/Addendum Patient seen and examined with resident team, agree with above. In brief this is a 74-year-old female admitted with acute respiratory failure. Her overall respiratory status has improved. She has had several episodes of SVT with sedation vacation and spontaneous breathing trials. Per cardiology there is no plan for intervention until either the patient consents or somebody consents for her especially given that the patient had not wanted a cath in the past. Today she is placed on sedation vacation and a spontaneous breathing trial. She has done well on SBT and weaning parameters were obtained. A cuff leak is heard. Plans for extubation made. She is slightly anxious and therefore Haldol 5 mg was given. She is extubated to BiPAP. She remains on Precedex drip. No runs of SVT in the morning. She was evaluated by cardiology in the afternoon and apparently runs of VT requiring ICD intervention were noted. She was also shocked in the afternoon. She is confused and seems to be somewhat disoriented. On physical exam she is awake confused, normal body habitus, lungs with occasional expiratory wheezes, heart rate regular and rhythmic however frequent ectopies. Abdomen is soft nontender. Edema bilateral upper extremities with extensive bruising bilaterally, pulses are palpable patient moves all 4 without any focal neurological deficits. Will maintain on Precedex drip today and evaluate. Low threshold for reintubation if she does not tolerate. Case discussed with ICU team and cardiology Labs, imaging and records reviewed approximately 48 critical care minutes required for evaluation, exam, review, intervention, discussion formulation of plan of care critically ill patient With SVT and VT at high risk for further and ongoing decompensation.
[2024-11-16 19:54] LABS: Partial Thromboplastin Time 45.8 Seconds (22.0-36.0)
--- NOTE | 2024-11-16 20:30 | EKG_ITS ---
[facility] Test Date: 2024-11-16 Pat Name: REILLY GRADY Department: Room: S253A Gender: Female Decorating Consultant: RANCHO : 1950 Requested By: Jacki Arriaga Order Number: [id number] Reading MD: Jacki Arriaga Measurements Intervals [place] Rate: 152 P: 7 UT: 85 QRS: 76 QRSD: 126 T: 157 QT: 332 QTc: 529 Interpretive Statements SINUS TACHYCARDIA WITH SHORT UT INTERVAL, POSSIBLE ATRIAL FLUTTER MODERATE INTRAVENTRICULAR CONDUCTION DELAY MARKED ST ELEVATION, CONSIDER INFERIOR INJURY ACUTE TX Compared to ECG 11/14/2024 12:12:31 Intraventricular conduction delay now present ST (T wave) deviation now present Atrial fibrillation no longer present Ventricular premature complex(es) no longer present Aberrant conduction of supraventricular beat(s) no longer present Myocardial infarct finding still present /store/S0/[id number]/ecg/[id number].pdf
[2024-11-16 21:02] LABS: Magnesium 2.3 mg/dL (1.6-2.6); Potassium 3.8 mMol/L (3.4-5.1)
[2024-11-16] MEDS: OLANZapine INJ 10 MG, Sterile Water 2.1 ML IM (21:21)
[2024-11-16] MEDS: POTASSIUM CHL 10 mEq IVPB 10 MEQ/100 ML BAG 100 MEQ IV (21:57)
[2024-11-16] MEDS: DEXMEDETOMIDINE 400 MCG IVPB 400 MCG/100 ML BAG 18.563 MCG IV (22:52)
[2024-11-17] VITALS (142 sets, daily range): BP systolic 69–235; BP diastolic 32–195; PULSE 0–153; RESP 10–37; TEMP 36.6–36.9; O2SAT 27–100; BMI 25.1
[2024-11-17] MEDS: AMIODARONE 360 MG IVPB 360 MG/200 ML BAG 16.667 MG IV ×2 (01:07→12:50)
[2024-11-17] MEDS: ALBUTEROL/IPRATROPIUM (Duoneb) RT SOL 3 ML NEBU INH ×5 (02:29→18:39)
[2024-11-17 02:59] LABS: Basophils # (Auto) 0.0 Thou/mm3 (0.0-0.2); Basophils % (Auto) 1 % (0-2.5); Eosinophils # (Auto) 0.1 Thou/mm3 (0.0-0.5); Eosinophils % (Auto) 2 % (0-10); Hematocrit 22.6 % (36.0-46.0); Immature Granulocytes Auto 0.04 Thou/mm3 (0.00-0.00); Lymphocytes # (Auto) 0.8 Thou/mm3 (1.0-4.8); Lymphocytes % (Auto) 12 % (10-50); Mean Corpuscular HGB Conc 32.7 g/dl (31.0-37.0); Mean Corpuscular Hemoglobin 29.2 pg (25.0-35.0); Mean Corpuscular Volume 89 fL (80-100); Monocytes # (Auto) 0.8 Thou/mm3 (0.0-0.8); Monocytes % (Auto) 13 % (0-12); Neutrophils # (Auto) 4.6 Thou/mm3 (1.8-7.7); Neutrophils % (Auto) 72 % (37-80); Nucleated Red Blood Cell # 0.00 Thou/mm3 (0.00-0.00); Nucleated Red Blood Cell % 0 /100 WBC (0); Platelet Count 97 Thou/mm3 (140-440); RDW Standard Deviation 58.8 fL (36.4-46.3); Red Blood Count 2.53 Miln/mm3 (4.00-5.20); White Blood Count 6.3 Thou/mm3 (3.6-11.0)
[2024-11-17 03:10] LABS: Hemoglobin 7.4 g/dL (12.0-16.0)
[2024-11-17 03:29] LABS: Partial Thromboplastin Time 98.4 Seconds (22.0-36.0)
[2024-11-17] MEDS: DEXMEDETOMIDINE 400 MCG IVPB 400 MCG/100 ML BAG 16.875 MCG IV (04:06)
[2024-11-17 05:07] LABS: Albumin, Serum 3.3 gm/dL (3.4-4.8); Anion Gap 12 (7-16); BUN/Creatinine Ratio 8 Ratio (12-20); Blood Urea Nitrogen 30 mg/dL (9-23); Calcium 8.4 mg/dL (8.3-10.6); Calcium (Corrected) 9.0 mg/dL (8.5-10.1); Carbon Dioxide 27.2 mMol/L (20.0-31.0); Chloride 94 mMol/L (98-107); Creatinine (Component) 3.9 mg/dL (0.6-1.3); Estimated Creatinine Clearance 12.0 mL/min (>60); Glucose 98 mg/dL (74-106); Magnesium 2.4 mg/dL (1.6-2.6); Osmolality,Calculated 272 (275-295); Phosphorous 5.7 mg/dL (2.4-5.1); Potassium 3.6 mMol/L (3.4-5.1); Sodium 133 mMol/L (136-145); eGFR 12 See Note
--- NOTE | 2024-11-17 06:13 | XR_ITS ---
Examination: AP chest single view Technique one AP portable upright chest single view Date and time: November 17, 2024 0704 hours Comparison November 16, 2024 INDICATIONS: Shortness of breath today. FINDINGS: Mild heart failure Moderate enlargement cardiac contour Extensive white radiographic calcification Transvenous dual-chamber bipolar cardiac lead satisfactory position. Left internal jugular central line tip SVC Prominent vascular congestion with early perihilar edema Prominent osteopenia IMPRESSION: Mild heart failure
--- NOTE | 2024-11-17 07:46 | ESPR_ITS ---
Documentation for date of: 11/17/24 Subjective Subjective Interval history: This is a 74-year-old female admitted to the hospital on 11 November for acute hypoxic hypercapnic respiratory failure. She was found to have a COPD exacerbation. She had gradually improved and on the was placed on pressure support. She lasted for approximately 20 minutes before developing SVT requiring adenosine, metoprolol and diltiazem. She also developed flash pulmonary edema. She was sedated and placed back on AC/VC. On the sedation vacation was again attempted with spontaneous breathing trial. When she is awake she is very anxious and when she becomes anxious she develops SVT. This time she also developed VT and her ICD fired. She was again sedated and placed on AC/VC as well as an amiodarone drip. Discussion was held with cardiology regarding her recurrent arrhythmias. It was felt that she does have ischemic heart disease which is responsible for these dysrhythmias. The plan was for cardiac cath. Originally the patient was supposed to go for cath on the however this was canceled by cardiology. Therefore the patient was once again placed on spontaneous breathing trial which she did pass. She was extubated to BiPAP. She was still very anxious requiring Precedex drip as well as as needed Haldol. This morning she is more sedated and seems somewhat confused. There are no acute overnight events. Yesterday in the afternoon she had repeat episodes of VT terminated by her ICD. She is anuric from her end-stage renal disease. Critical Care Note Critical care time (min.): 0 Exam Vital Signs Temp Pulse Resp BP Pulse Ox O2 Del Method O2 Flow Rate 98.4 F 75 15 165/57 H 100 Mechanical Ventilation 3 11/17/24 04:00 11/17/24 07:31 11/17/24 07:31 11/17/24 07:31 11/17/24 07:31 11/16/24 04:00 11/17/24 06:46 FiO2 100 11/16/24 16:52 Narrative Exam General-sedated, no acute distress, normal body habitus HEENT-normocephalic, atraumatic, sclera anicteric, pupils equal and reactive, oropharynx is extremely dry Chest-lungs clear to auscultation bilaterally, heart rate regular and rhythmic, frequent ectopics noted, systolic murmur, no increased work of breathing Abdomen-soft, nontender, bowel sounds present, no rebound or guarding Extremities-significant edema of bilateral upper lower extremities, pulses palpable, no clubbing or mottling, large dilated AV fistula on left forearm pulsatile, multiple areas of bruising over bilateral extremities Drips Precedex Physical Exam Completion Physical Exam Complete?: Yes Objective - Maintenance Of Way Supervisor Labs 11/17/24 08:20 11/17/24 02:29 Labs: Laboratory Results - last 24 hr 11/15/24 11/16/24 11/16/24 05:10 09:06 11:55 WBC RBC Hgb Hct MCV MCH MCHC RDW Std Deviation Plt Count Neut % (Auto) Lymph % (Auto) [place] % (Auto) Eos % (Auto) Baso % (Auto) Neut # (Auto) Lymph # (Auto) [place] # (Auto) Eos # (Auto) Baso # (Auto) Immature Gran # (Auto) Absolute Nucleated RBC Immature Gran % Nucleated RBC % APTT 66.7 H D Puncture Site Right Brachial ABG pH 7.41 D ABG pCO2 39 D ABG pO2 160 H D ABG HCO3 24 ABG O2 Saturation 100 H ABG Base Excess 0 FiO2 50 Sodium Potassium Chloride Carbon Dioxide Anion Gap BUN Creatinine Estim Creat Clear Calc eGFR BUN/Creatinine Ratio Glucose Calculated Osmolality Calcium Corrected Calcium Phosphorus Magnesium Albumin Heparin-Ind Plt Ab Scrn NEGATIVE Heparin Dep Plt Ab OD 0.014 11/16/24 11/17/24 18:45 02:29 WBC 6.3 D RBC 2.53 L Hgb 7.4 L Hct 22.6 L MCV 89 MCH 29.2 MCHC 32.7 RDW Std Deviation 58.8 H Plt Count 97 L D Neut % (Auto) 72 Lymph % (Auto) 12 [place] % (Auto) 13 H Eos % (Auto) 2 Baso % (Auto) 1 Neut # (Auto) 4.6 Lymph # (Auto) 0.8 L [place] # (Auto) 0.8 Eos # (Auto) 0.1 Baso # (Auto) 0.0 Immature Gran # (Auto) 0.04 H Absolute Nucleated RBC 0.00 Immature Gran % 1 H Nucleated RBC % 0 APTT 45.8 H D 98.4 H D Puncture Site ABG pH ABG pCO2 ABG pO2 ABG HCO3 ABG O2 Saturation ABG Base Excess FiO2 Sodium 133 L Potassium 3.8 D 3.6 Chloride 94 L Carbon Dioxide 27.2 Anion Gap 12 BUN 30 H Creatinine 3.9 H D Estim Creat Clear Calc 12.0 L eGFR 12 L* BUN/Creatinine Ratio 8 L Glucose 98 Calculated Osmolality 272 L Calcium 8.4 Corrected Calcium 9.0 Phosphorus 5.7 H Magnesium 2.3 2.4 Albumin 3.3 L Heparin-Ind Plt Ab Scrn Heparin Dep Plt Ab OD Assessment & Plan Additional Assessment Additional Assessment: In summary this is 74-year-old female with acute respiratory failure and ischemic heart disease a/p [employer] Delerium- pt appears confused with intermittent agitation - attempt to reorient CV SVT/VT- on metoprolol 5mg IV for termination of SVT and metoprolol q12 - ICD terminates VT - on amio for stabilization of rhythm - d/w cards and felt to be likely ischemic in nature - requires cath however pt has not consented as of yet h/o Afib- eliquis on hold Ischemic cardiomyopathy- echo shows EF 30% with global hypokinesia and post wall akinesia - mod to severe MS - last echo in September 2023 showed EF of 45% - per cards needs cath - on BB - if BP allows resume entresto Tropinemia- OK type I v II - on heparin , ASA and plavix - followed by cardiology Resp Acute Resp failure- resolved COPDE- improved Pulmonary edema- ongoing HD for volume removal ? CAP- on 7 days abx - cx grew Acinetobacter fajardo sensitive Renal HypoNa- mild, monitor ESRD on HD- followed by nephrology Hyperphos- on sevelamer GI NPo till passes swallow Endo stable Heme Anemia- pt has had a drop this AM from 9 to 7.4, no obvious source of bleeding - recheck h/h, transfuse if <7 Thrombocytopenia- no indication for transfusion, had improved yesterday but down again today - HIT panel had been sent which is neg ID PNA- on 7days abx + Bcx- bcx from 11/11 was staph capitis, all repeat bcx NTD -> likely contaminant case d/w ICU team labs, imaging, records reviewed ~46min required for eval, exam, review, intervention, dicussion and formulation of POC for this ill pt Provider Notation Provider Notation: Although this document has been carefully reviewed, there may still be some phonetic and other typographical errors. These errors are purely grammatical due to imperfections in the software program and should not be construed in any way to compromise the substance of the patient's medical care during this visit. Thank you for the opportunity and privilege in assisting you with this patient's care and management.
[2024-11-17] MEDS: FAMOTIDINE INJ 10 MG/ML VIAL 2 ML 20 MG IVP (08:33)
[2024-11-17] MEDS: AMPICILLIN/SULBAC INJ 3 GM in SODIUM CHLORIDE 0.9% (POP) 100 ML IV (08:33)
[2024-11-17] MEDS: POTASSIUM CHL 20 mEq IVPB 20 MEQ/100 ML BAG 50 MEQ IV (08:46)
[2024-11-17 08:47] LABS: Basophils # (Auto) 0.0 Thou/mm3 (0.0-0.2); Basophils % (Auto) 0 % (0-2.5); Eosinophils # (Auto) 0.1 Thou/mm3 (0.0-0.5); Eosinophils % (Auto) 1 % (0-10); Hematocrit 24.0 % (36.0-46.0); Immature Granulocytes Auto 0.06 Thou/mm3 (0.00-0.00); Lymphocytes # (Auto) 0.7 Thou/mm3 (1.0-4.8); Lymphocytes % (Auto) 9 % (10-50); Mean Corpuscular HGB Conc 32.9 g/dl (31.0-37.0); Mean Corpuscular Hemoglobin 29.6 pg (25.0-35.0); Mean Corpuscular Volume 90 fL (80-100); Monocytes # (Auto) 0.7 Thou/mm3 (0.0-0.8); Monocytes % (Auto) 9 % (0-12); Neutrophils # (Auto) 6.3 Thou/mm3 (1.8-7.7); Neutrophils % (Auto) 80 % (37-80); Nucleated Red Blood Cell # 0.00 Thou/mm3 (0.00-0.00); Nucleated Red Blood Cell % 0 /100 WBC (0); Platelet Count 104 Thou/mm3 (140-440); RDW Standard Deviation 58.7 fL (36.4-46.3); Red Blood Count 2.67 Miln/mm3 (4.00-5.20); White Blood Count 7.9 Thou/mm3 (3.6-11.0)
--- NOTE | 2024-11-17 09:09 | ESPR_ITS ---
Documentation for date of: 11/17/24 Subjective Subjective Interval history: Reason for consult: ESRD, acute respiratory failure, need for dialysis History of present illness: Mirella Grewal is a 74-year-old F with a PMH of CHF, coronary artery disease with multiple MIs s/p stents, COPD on 3 L home oxygen, ESRD on hemodialysis, Thursday, Thursday, , Thursday, and A-fib with pacemaker, who was brought in by EMS with a chief complaint of acute SOB. Per Internal Medicine team note, the patient called EMS due to SOB, and was saturating around 80% at home. She was given DuoNebs on the way to hospital and, when she presented to the ED, was saturating at 84% on high-flow CPAP. At this point, she was already altered, and was intubated. Internal Medicine team could not obtain further history due to patient already being intubated during their evaluation. Of note, patient has multiple prior hospitalizations for similar presentations of acute hypoxic respiratory failure including in November 2023 and September 2023. In the ED, vitals showed: BP 200/76 HR 79 RR 20 Temp 98.6 SpO2 84% on high flow CPAP, ED Course: CBC showed high WBC 13.5, and low Hgb 11.1 (MCV 96, RDW 63.4). Coagulation panel showed critically elevated D-dimer 2630 but was otherwise within normal limits. ABG showed normal pH 7.37, normal pCO2 42, normal PO2 97, and normal HCO3 24. CMP showed high BUN 39, critically elevated creatinine 6.4, critically low EGFR 6, high lactic acid 4.1, high blood glucose 184, low corrected calcium 7.7, c ritically elevated troponin I 0.046, critically elevated BNP 2005, high TSH 6.61, and low free T4 0.84. UA showed turbid orange urine with a basic pH of 8.0. It also showed 2+ urine protein, 2+ urine blood, high urine RBC 502, high urine WBC 1255, high urine squamous epithelial cells 29, but no urine bacteria. UDS was negative. Rapid RSV was negative. Imaging: Chest x-ray showed moderate congestive heart failure with prominent vascular congestion and perihilar basilar edema. Head CT was unremarkable. Chest CT showed bilateral thyroid nodules, mild heart failure with moderate enlargement of the cardiac contour, bibasilar pneumonia, numerous bilateral positioned metastatic pulmonary nodules, small bilateral pleural effusions, and cholelithiasis. EKG showed old GA. In the ED, patient was received methylprednisone 125 Mg IV x 1, bolus fluid 1 L at the rate 250 cc/h, cefixime 2 g IV x 1, and was started on vancomycin. The patient was intubated and admitted to ICU for further management of acute hypoxic hypercapnic respiratory failure secondary to COPD exacerbation. We, the nephrology team, were consulted for the patient's combined respiratory and metabolic acidosis and need for urgent hemodialysis due to ESRD status. Cardiology is also following. Interval History 11/16/2024: No overnight events. Patient seen and examined at bedside; she continues to be intubated and is unable to comment on her well-being or endorse new complaints or symptoms. Notable labs today include Hgb 9.0, APTT 66.7, blood pH 7.29, Na 127, Cl 88, BUN bump to 46 from 27, creatinine bump to 5.1 from 4.2, eGFR drop to 8 from 11, and phosphorus bump to 8.0 from 6.5. 11/16 CXR showed moderate heart failure with findings suggestive of superimposed pneumonia at the lung bases. Her abdomen also appears more distended today. Patient is having cardiac catheter performed by Dr. Escudero at 11:30 AM today with plans to extubate once the procedure is complete and patient is hemodynamically stable. From a nephrology standpoint, patient will be receiving HD today. 11/17/2024: No overnight events. Patient seen and examined at bedside; she is no longer intubated (extubated yesterday). Patient was awake and attempted to communicate with this keno writer / runner but her voice was very quiet, hoarse, and low so it was difficult to understand her. She seemed to want soap for her hand but this keno writer / runner was unable to tell for certain. Notable labs today include: Hgb 7.9, platelet count 104, APTT drop to 67.8 from 98.4, blood pH bump to 7.48 from 7.41, Na bump to 133 from 127, BUN drop to 30 from 46, creatinine drop to 3.9 from 5.1, eGFR bump to 12 from 8, and phosphorus drop to 5.7 from 8.0. Patient was scheduled for cardiac catheterization yesterday for her ischemic heart disease thought to be causing her recurrent SVT and VT (triggering ICD shocks) but this was canceled by cardiology. From nephrology's standpoint, we will hold off on hemodialysis for today. Exam Vital Signs Temp Pulse Resp BP Pulse Ox O2 Del Method O2 Flow Rate 98.4 F 75 15 165/57 H 100 Mechanical Ventilation 3 11/17/24 04:00 11/17/24 07:31 11/17/24 07:31 11/17/24 07:31 11/17/24 07:31 11/16/24 04:00 11/17/24 06:46 FiO2 100 11/16/24 16:52 Narrative Exam General: No longer intubated. Unable to assess A&O status due to patient's inability to speak, no acute distress. Skin: Some skin break down on LUE wrist fistula. Warm, dry. Head: Normocephalic, atraumatic. Eyes: EOMI, anicteric. Cardiovascular: Regular rate and rhythm, no murmur, no JVD or carotid bruits. +S1/S2. Respiratory: Labored breathing with hoarse rhonchi bilaterally. Decreased breath sounds at the base. No crackles, no wheezing. No accessory muscle use. Gastrointestinal: Abdomen appears somewhat distended. Soft, nontender, no palpable masses. Extremities: Right hand and forearm appears bruised and swollen with gauze wrapped around it. Smaller area of bruising noted on left hand dorsum. RUE hand edema> LUE edema. Cool to touch. 2+ dorsal pedalis, UE in restraints. Neuro: Deferred. Objective Labs 11/18/24 12:54 11/18/24 04:30 Labs: Laboratory Results - last 24 hr 11/15/24 11/16/24 11/16/24 05:10 09:06 11:55 WBC RBC Hgb Hct MCV MCH MCHC RDW Std Deviation Plt Count Neut % (Auto) Lymph % (Auto) [place] % (Auto) Eos % (Auto) Baso % (Auto) Neut # (Auto) Lymph # (Auto) [place] # (Auto) Eos # (Auto) Baso # (Auto) Immature Gran # (Auto) Absolute Nucleated RBC Immature Gran % Nucleated RBC % APTT 66.7 H D Puncture Site Right Brachial ABG pH 7.41 D ABG pCO2 39 D ABG pO2 160 H D ABG HCO3 24 ABG O2 Saturation 100 H ABG Base Excess 0 FiO2 50 Sodium Potassium Chloride Carbon Dioxide Anion Gap BUN Creatinine Estim Creat Clear Calc eGFR BUN/Creatinine Ratio Glucose Calculated Osmolality Calcium Corrected Calcium Phosphorus Magnesium Albumin Heparin-Ind Plt Ab Scrn NEGATIVE Heparin Dep Plt Ab OD 0.014 11/16/24 11/17/24 18:45 02:29 WBC 6.3 D RBC 2.53 L Hgb 7.4 L Hct 22.6 L MCV 89 MCH 29.2 MCHC 32.7 RDW Std Deviation 58.8 H Plt Count 97 L D Neut % (Auto) 72 Lymph % (Auto) 12 [place] % (Auto) 13 H Eos % (Auto) 2 Baso % (Auto) 1 Neut # (Auto) 4.6 Lymph # (Auto) 0.8 L [place] # (Auto) 0.8 Eos # (Auto) 0.1 Baso # (Auto) 0.0 Immature Gran # (Auto) 0.04 H Absolute Nucleated RBC 0.00 Immature Gran % 1 H Nucleated RBC % 0 APTT 45.8 H D 98.4 H D Puncture Site ABG pH ABG pCO2 ABG pO2 ABG HCO3 ABG O2 Saturation ABG Base Excess FiO2 Sodium 133 L Potassium 3.8 D 3.6 Chloride 94 L Carbon Dioxide 27.2 Anion Gap 12 BUN 30 H Creatinine 3.9 H D Estim Creat Clear Calc 12.0 L eGFR 12 L* BUN/Creatinine Ratio 8 L Glucose 98 Calculated Osmolality 272 L Calcium 8.4 Corrected Calcium 9.0 Phosphorus 5.7 H Magnesium 2.3 2.4 Albumin 3.3 L Heparin-Ind Plt Ab Scrn Heparin Dep Plt Ab OD ABG Interpretation ABG results: 11/11/24 11/11/24 11/12/24 04:01 07:38 04:55 ABG pH 7.14 L* 7.37 D 7.26 L D ABG pCO2 71 H* 42 D 44 ABG pO2 116 H 97 95 ABG HCO3 24 24 20 ABG O2 Saturation 97 99 H 98 ABG Base Excess -6 L -1 -7 L 11/12/24 11/13/24 11/14/24 07:35 04:13 04:35 ABG pH Cancelled 7.42 D 7.46 H ABG pCO2 Cancelled 48 40 ABG pO2 Cancelled 79 L 106 D ABG HCO3 Cancelled 31 H 29 H ABG O2 Saturation Cancelled 97 99 H ABG Base Excess Cancelled 6 H 4 H 11/15/24 11/16/24 11/16/24 04:58 05:20 11:55 ABG pH 7.47 H 7.29 L D 7.41 D ABG pCO2 39 51 H D 39 D ABG pO2 100 234 H D 160 H D ABG HCO3 29 H 24 24 ABG O2 Saturation 99 H 100 H 100 H ABG Base Excess 5 H -2 0 Quality Measures Quality Measures none Advance care planning discussed with:: patient Assessment & Plan Assessment Current Active Medications: Generic Name Dose Route Start Last Admin Trade Name Freq PRN Reason Stop Dose Admin Acetaminophen 650 mg 11/11/24 05:17 Acetaminophen 325 Mg Tablet PO 12/11/24 05:16 Q6H PRN Fever >100.5 Albuterol/Ipratropium 3 ml 11/11/24 07:00 11/17/24 06:44 Albuterol/Ipratropium (Duoneb) Rt Poonam 3 Ml Nebu INH 12/11/24 06:59 3 ml Q4HRRT RAYO Administration Aspirin 81 mg 11/11/24 09:00 11/17/24 08:41 Aspirin 81 Mg Chew NG 12/11/24 08:59 Not Given QDAY RAYO Atorvastatin Calcium 40 mg 11/11/24 21:00 11/16/24 21:23 Atorvastatin Calcium 20 Mg Tablet NG 12/11/24 20:59 Not Given HS RAYO Bisacodyl 10 mg 11/16/24 10:09 11/16/24 10:44 Bisacodyl 10 Mg Supp AZ 12/16/24 10:08 10 mg QDAY PRN Administration CONSTIPATION Protocol Clopidogrel Bisulfate 75 mg 11/14/24 09:00 11/17/24 08:41 Clopidogrel Bisulfate 75 Mg Tablet PO 12/14/24 08:59 Not Given QDAY RAOY Dextrose 25 ml 11/12/24 06:24 Dextrose 50%-Water Inj 50 Ml Syringe IV 12/12/24 06:23 Q15MIN PRN BG 50-70 responsive npo pt Dextrose 50 ml 11/12/24 06:24 Dextrose 50%-Water Inj 50 Ml Syringe IV 12/12/24 06:23 Q15MIN PRN BG <50 OR BG <70 & pt unresponsive Famotidine 20 mg 11/11/24 09:00 11/17/24 08:33 Famotidine Inj 10 Mg/Ml Vial 2 Ml IVP 12/11/24 08:59 20 mg QDAY RAYO Administration Protocol Glucagon 1 mg 11/12/24 06:24 Glucagon Inj 1 Mg Vial IM Q15MIN PRN BG <70, and no IV access Norepinephrine/Dextrose 8 mg in 250 mls @ 6.476 mls/hr 11/11/24 16:05 11/16/24 17:24 Levophed In D5w 8mg/250ml IV 12/11/24 16:04 0 mcg/kg/min .Q24H PRN 0 mls/hr PER PROTOCOL Titration Protocol 0.05 MCG/KG/MIN Dexmedetomidine/Sodium Chloride 400 mcg in 100 mls @ 3.375 mls/hr 11/13/24 09:53 11/17/24 08:30 Precedex Ivpb IV 12/13/24 09:42 0.6 mcg/kg/hr .Q24H PRN 10.125 mls/hr Per PROTOCOL Titration Protocol 0.2 MCG/KG/HR Albumin Human 25 gm in 100 mls @ 100 mls/min 11/14/24 08:47 11/14/24 18:41 Albuminar-25 Ivpb IV Infused PRN PRN Infusion DIALYSIS Heparin Sodium/Dextrose 25,000 unit in 250 mls @ 8.52 mls/hr 11/16/24 10:45 11/17/24 03:00 Heparin In D5w Ivpb IV 11/30/24 10:44 13 units/kg/hr .Q24H RAYO 9.23 mls/hr Titration Protocol 12 UNITS/KG/HR Ampicillin Sodium/Sulbactam 100 mls @ 200 mls/hr 11/16/24 18:00 11/17/24 08:33 Sodium 3 gm/ Sodium Chloride IV 11/23/24 17:59 200 mls/hr QDAY RAYO Administration Protocol Amiodarone HCl/Dextrose 360 mg in 200 mls @ 16.667 mls/hr 11/16/24 23:10 11/17/24 01:07 Nexterone Ivpb IV 11/17/24 23:09 16.667 mls/hr .Q12H RAYO Administration Potassium Chloride 20 meq in 100 mls @ 50 mls/hr 11/17/24 07:26 11/17/24 08:46 Kcl Ivpb IV 11/17/24 09:25 50 mls/hr X1 ONE Administration Magnesium Hydroxide 30 ml 11/16/24 10:08 11/16/24 10:46 Milk Of Magnesia Susp 30 Ml Udc PO 12/16/24 10:07 30 ml QDAY PRN Administration CONSTIPATION Protocol Metoprolol Tartrate 25 mg 11/14/24 11:30 11/17/24 08:41 Metoprolol Tartrate 25 Mg Tablet NG 12/14/24 11:29 Not Given BID RAYO Metoprolol Tartrate 5 mg 11/17/24 01:10 Metoprolol Tartrate Inj 1 Mg/Ml Amp 5 Ml IVP 12/17/24 01:09 Q2H PRN Blood Pressure - High >160 Midodrine 10 mg 11/11/24 22:00 11/17/24 05:43 Midodrine 5 Mg Tablet NG 12/11/24 21:59 Not Given TID RAYO Ondansetron HCl 4 mg 11/11/24 05:17 Ondansetron Inj 2 Mg/Ml Inj 2 Ml IVP 12/11/24 05:16 Q6H PRN NAUSEA OR VOMITING Protocol Pharmacy Consult 1 each 11/11/24 05:27 Pharmacy Renal Dose Adjustment 1 Ea XX 12/11/24 05:26 PRN PRN CONSULT Quetiapine Fumarate 50 mg 11/16/24 09:45 11/17/24 08:41 Quetiapine Fumarate 25 Mg Tablet NG 12/16/24 09:44 Not Given Q12HR RAYO Sevelamer Carbonate 0.8 gm 11/14/24 08:00 11/17/24 08:41 Sevelamer Carbonate 0.8 Gm Packet (Non-Formulary) NG 12/14/24 07:59 Not Given TIDWM RAYO Sodium Chloride 3 ml 11/11/24 04:43 Sodium Chloride Rt Poonam 0.9% 3 Ml Nebu INH 12/11/24 04:42 PRN PRN SOLN Gideon DillardFani Grewal is a 74-year-old F with a PMH of CHF, coronary artery disease with multiple MIs s/p stents, COPD on 3 L home oxygen, ESRD on hemodialysis, Thursday, Thursday, , Thursday, and A-fib with pacemaker, who was brought in by EMS with a chief complaint of acute SOB. The patient was intubated and admitted to ICU for further management of acute hypoxic hypercapnic respiratory failure secondary to COPD exacerbation. Patient was originally planned to receive cardiac catheterization yesterday but did not. She has been extubated and continues to have episodes of SVT and VT. Patient received hemodialysis yesterday and will not need to receive it today. #Combined respiratory and metabolic acidosis #ESRD on HD (Thu/Thu/Thu/Thu) Admission ABG showed pH 7.14 and pCO2 71, elevated lactic acid 4.1 Admission creatinine 6.4 (baseline: possibly 4.8-4.9), BUN 39, eGFR 6 11/12/24: worsening kidney function and toxic buildup due to no HD yesterday, creatinine 7.9, BUN 61, K 6.8, phosphorus 7.8 11/12/24: received HD 11/13/24: Cr 4.8 from 7.9, BUN 42 from 61, K 5.6 from 6.8 (improved kidney function after 11/12 HD) 11/14/24: Cr 5.9 from 4.8, BUN 52 from 42, K 5.0 from 5.6, Hgb 9.5, Plt Count 106, ABG pH 7.46 from 7.42, phosphorus 7.4 from 5.8 11/15/24: Cr 4.8 from 5.9, BUN 27 from 52, K 4.3, BP soft 90s /40s 11/16/24: Cr 4.2 from 5.1, BUN 46 from 27, K 4.6, last BP at 12:14 was 94/44 11/17/24: Cr 3.9 from 5.1, BUN 30 from 46 Patient has a left-sided fistula and receives her HD on ///THU Treatment Plan -No HD today -Strict I's & O's -Avoid nephrotoxic medications 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, requires vascular surgery follow up Fistula remains patent and thrill is palpable Treatment Plan -Follow-up with vascular surgery -Continue to monitor #Acute hypoxic respiratory failure - intubated #CAP #Possible CHF exacerbation, likely 2/2 volume overload in the setting of ESRD #Pleural Effusion Critically elevated BNP 2005 with elevated troponin I 0.046 CXR showed moderate congestive heart failure with prominent vascular congestion and perihilar basilar edema Chest CT showed mild heart failure with moderate enlargement of the cardiac contour with small bilateral pleural effusions 11/13 CXR showed bibasilar pneumonia with significant RLL consolidation 11/13 EKG showed a change from sinus rhythm to atrial fibrillation with intermittent pacemaker rhythm 11/14 troponin downtrended to 3.023 from 4.088 Treatment Plan -Continue management per primary care team #SVT #Recurrent Tachyarrythmia #Hx of A-fib, on Eliquis and s/p pacemaker Treatment Plan -Cardiac catheterization not performed yesterday, follow up with cardiology on future plan -Continue management per primary care team #Electrolyte abnormalities #Hypocalcemia, likely 2/2 ESRD status (resolving) #Mild hyponatremia #Hypochloremia Treatment Plan -Continue NG calcium carbonate BID per primary care team -Monitor electrolyte levels, correct as needed -Continue Veltassa to treat possible hyperkalemia -Continue sevelamer to treat possible hyperphosphatemia #Normocytic anemia, likely 2/2 ESRD status #Thrombocytopenia Admission Hgb 11.1 (MCV 96, RDW 63.4) 11/12/24: Hgb dropped to 10.0 -s/p Epoetin 10,000 U x1 11/14/24: Hgb 9.5, platelet count down to 106 from 134 11/16/24: Hgb 9.0 11/17/24: Hgb 7.9 Treatment Plan -Monitor H&H, transfuse if Hgb<7 #Other medical problems #Acute encephalopathy likely 2/2 CO2 narcolepsy in the setting of COPD exacerbation #Acute hypoxic hypercapnic respiratory failure likely 2/2 CHF exacerbation vs. COPD exacerbation vs. both #COPD exacerbation #Community-acquired pneumonia #Leukocytosis- downtrending #CAD s/p stents Treatment Plan -Continue management per primary care team Hospital Management: Disposition: no HD today Diet: NPO Lines: Left IJ central line, peripheral lines DVT Prophylaxis: Eliquis 5 mg BID CODE STATUS: Full Code Thank you for allowing us to be part of the patient's care. I have examined the patient and conferred with the nephrology attending, Dr. Mishra, regarding them. Tim Pineda, DO PGY-1 Internal Medicine Attending Provider Attestation/Addendum Patient seen and examined with resident physician Dr. Pineda. Note reviewed, agree with findings and recommendations. Patient currently seen in ICU. On ventilator. s/p extubation. Hold dialysis today. Patient with arrhythmias and ICD shocks. No POA identified. Spoke to ICU team.
[2024-11-17 09:10] LABS: Hemoglobin 7.9 g/dL (12.0-16.0)
[2024-11-17 09:16] LABS: Base Excess 1 (-3-3); HCO3 25 mEq/L (20-26); Inspired O2, VO2 Liters 4 L/min; O2 Saturation 101 % (91-98); PCO2 33 mmHg (32.0-48.0); PO2 132 mmHg (83-108); pH, Arterial 7.48 (7.35-7.45)
[2024-11-17 09:17] LABS: Allen Test Performed/OK; Puncture Site Left Radial
--- NOTE | 2024-11-17 09:59 | PCS.ST ---
Initiated swallow evaluation. Pt desaturating with PO activity and conversation. Plan to see again later today for diet readiness.
[2024-11-17 10:10] LABS: Partial Thromboplastin Time 67.8 Seconds (22.0-36.0)
[2024-11-17] MEDS: DEXTROSE 50%-WATER INJ 50 ML SYRINGE 25 ML IV (12:19)
[2024-11-17] MEDS: DEXTROSE 50%-WATER INJ 50 ML SYRINGE IV ×3 (12:59→18:08)
--- NOTE | 2024-11-17 13:29 | XR_ITS ---
Examination: AP chest single view Technique one AP portable semiupright chest single view Date and time: November 17, 2024 1417 hours INDICATIONS: Hypoxic respiratory failure postintubation FINDINGS: Comparison November 17, 2024 0704 hours FINDINGS: Moderate enlargement cardiac contour with prominent vascular congestion and perihilar edema Bibasilar edema and/or pneumonia Cardiac leads satisfactory position Endotracheal tube tip 5.8 cm above bam Left internal jugular central line tip SVC satisfactory position Orogastric tube in stomach tip is below the level film IMPRESSION: Mild heart failure Bibasilar edema and/or pneumonia
[2024-11-17] MEDS: LABETALOL INJ 5 MG/ML VIAL 20 ML 10 MG IVP (13:40)
[2024-11-17] MEDS: fentaNYL CIT INJ 50 mCg/ML AMP 2ML 100 MCG IVP (13:45)
[2024-11-17] MEDS: ROCURONIUM INJ 10 MG/ML VIAL 10 ML 70 MG IV (13:46)
[2024-11-17] MEDS: MIDAZOLAM INJ 1 MG/ML VIAL 2 ML 2 MG IVP ×2 (13:46→15:51)
[2024-11-17] MEDS: Norepinephrine/D5W 8mg/250ml 8 MG/250 ML BAG 6.476 MG IV (13:57)
--- NOTE | 2024-11-17 13:57 | PD.INTPROC ---
PROCEDURES: Procedure Date / Time 11/17/24 3511 Intubation Indication(s): acute Resp Failure Informed consent obtained: procedure done urgently Time out done, and the following verified: correct patient, side and site, procedure and patient position Sedative: versed Mg given: 2 Sedative #2: fentanyl Mg Given (sedative #2): 100 Paralytic: rocuronium Mg given: 70 Laryngoscope: fiber optic video scope ET tube size: 7.5 ET tube uncuffed: No Tube secured depth (cm): 23 Tube secured location: lips Tube placement confirmation: visualized tube passing through cords, equal breath sounds bilaterally, no breath sounds over epigastrium and confirmation by capnometry Patient tolerated procedure: well and no complications EBL(ml): 0 Intubation complications: none
[2024-11-17] MEDS: RINGERS LACTATED 1000 ML 1,000 ML 999 ML IV (14:05)
--- NOTE | 2024-11-17 14:09 | PD.RESPRO ---
Documentation for date of: 11/17/24 Subjective Subjective Interval history: The patient is a 74-year-old female with significant past medical history of CHF, coronary artery disease with multiple MIs s/p stents, COPD on 3 L home oxygen, ESRD on hemodialysis, Thursday, Thursday, , Thursday, A-fib with pacemaker, brought in by EMS with chief complaint of acute SOB. The patient called EMS due to SOB, and she was saturating on 80s at her home. She was given DuoNeb on the way to hospital, and when she presented to ED, her saturation was 84 on high flow CPAP. She was already altered, and was intubated. Further history were unobtainable, as patient was already intubated during my evaluation. In the ED her vitals were significant for a blood pressure of 200/76, pulse 79, RR 20, labs are significant for white count 13.5, RBC 3.88, hemoglobin 11.1, D-dimer 2630, ABG revealed pH of 7.14, pCO2 71, pO2 116, bicarb 24, sodium 135, potassium 4.6, BUN 39, creatinine 6.4, lactic acid 4.1, corrected calcium 7.7, magnesium 2.2, AST/ALT/ALP less than 10, less than 10/05/2027 respectively. Ammonia was 17, troponin 0.046, CRP less than 0.5, BNP 2006, lipid panel revealed LDL 116, lipase 68, TSH 6.61, free T4 0.84. UA revealed orange urine, 2+ protein, 2+ blood, leukocyte Estrace positive, RBC 502, WBC 1255, chest x-ray revealed right lower lobe pneumonia, EKG revealed old MS. The patient received methylprednisone 125 Mg IV x 1, bolus fluid 1 L at the rate 250 cc/h, cefixime 2 g IV x 1, and started on vancomycin. The patient was intubated and admitted to ICU for further management of acute hypoxic hypercapnic respiratory failure secondary to COPD exacerbation. 11/11/2024: Patient is sedated and on mechanical ventilator. Most of the history is taken from the chart review and from the nurse at the bedside. Patient supposedly lives alone and developed shortness of breath, for which she called the EMS. By the time EMS went her home she was severely short of breath for which she was given DuoNebs and was kept on CPAP following which she was brought to the hospital where she was given steroids, sedated and intubated. Later central line was placed. No acute overnight events. Vitals are stable and patient is on propofol and fentanyl drip without any vasopressor support. Started on methylprednisolone 60 Mg IV once daily, ceftriaxone and azithromycin. Repeat ABG after the intubation is within normal limits. Will continue mechanical ventilation for now and monitor the patient. Later in the evening, patient is found to be mildly hypotensive for which low-dose Levophed was started and patient was given a dose of midodrine 10 Mg through orogastric tube. 11/12/2024: Patient is seen and examined at bedside in the ICU. No acute overnight events. Sedated and on mechanical ventilator, VC/AC mode with tidal volume 380, PEEP 5, FiO2 30% and saturating around 95%. Vitals are stable and patient is mildly hypotensive, started on Levophed which was stopped around 7 AM this morning, maintain blood pressures only on minimal doses of Levophed 0.05 mcg/kg/min. Labs done this morning showed mild leukocytosis, sodium 131, potassium 5.5, BUN 61, creatinine 7.9, bicarb 19.2, phosphorus 7.8. ABG showed metabolic acidosis Patient missed her dialysis session yesterday which was started this morning and Levophed is restarted to support the blood pressure during dialysis. Tolerated dialysis well on 2 L of fluid is taken. Patient was changed from VC/AC mode to pressure support mode. Will repeat ABG tomorrow morning and if patient is hemodynamically stable, able to respond after weaning of the sedation, planning to wean her off the mechanical ventilator. 11/13/2024: Patient seen this morning, at a RASS of 0 able to follow commands well, interactive and trying to communicate. Initially plan was to extubate today. Later that morning around 9:40 am patient appeared anxious and went into SVT rate up to 180s with hypoxia in the 70s while on pressure support. Patient was switched back to AC/VC on 100% FiO2. Patient was given metoprolol tartrate 5 mg IV x1, adenosine 6 mg IV x1, furosemide 40 mg IV x1, diltiazem 10 mg IV x1, and midazolam 1 mg IV x1, after which patient had resolution of heart rate and rhythm. Patient was then placed on Precedex drip. Will keep patient sedated overnight and try for extubation tomorrow. Started Veltassa for hyperkalemia, follow up potassium levels. Patient will have dialysis tomorrow. Troponin was repeated in the afternoon which was elevated at 4.088 therefore Plavix loading dose was given 300 mg x1 followed by 75 mg qday and heparin drip was started after discussed with Dr. Escudero. 11/14/2024: Patient is seen and examined at bedside in the ICU. Initial plan was to extubate patient this morning but after decreasing the sedation, patient became more interactive and is trying to communicate with the hand gestures and trying to speak. Patient was kept on pressure support mode and she was tolerating it well. Later suddenly noted multiple episodes of SVT and VT. Patient was given 300 mg bolus of amiodarone and was started on amiodarone drip. Later no further episodes of arrhythmias were noted during the day. Patient was kept back on the VC/AC mode. Consulted escort blind, Dr. Escudero who is following the patient, recommended that he will do cardiac cath on 11/16/2024. So we will plan to extubate patient once the cardiac cath is done as patient is going into arrhythmias whenever trying to wean her off the sedation and extubate. Patient is taking metoprolol 25 mg twice daily at home. Echocardiogram done on 11/13/2024 showed EF of 30%. So resumed metoprolol to tartrate 25 mg twice daily. Will continue telemetry monitoring 11/15/2024: Patient is seen and examined at bedside in the ICU. No acute overnight events. No further episodes of SVT and VT noted. Patient continued to be on the amiodarone drip and heparin drip. Pending cardiac cath tomorrow around 11:[address] Escudero. Noted to have mild respiratory alkalosis for which respiratory rate is decreased from 20-18. Labs done this morning showed thrombocytopenia, 97,000. As patient is on heparin drip and also noted to have downtrending platelet count since the start of heparin drip, will do workup for heparin-induced thrombocytopenia. Will keep patient on n.p.o. since midnight. Transition to oral amiodarone 200 mg twice daily based on Dr. Escudero's recommendations. Will stop heparin drip around 1 hour before the cardiac catheterization. Talked to her friend who is the point of contact who gave consent for the cardiac catheterization and also patient when she is awake she wrote down on the patient that she wants to undergo cardiac catheterization. Planning to extubate once cardiac catheterization is done if the patient is hemodynamically stable.Will continue to monitor platelet count and discontinue heparin drip of the platelet counts downtre 11/16/2024: Patient is seen and examined at bedside in the ICU. No acute overnight events. Patient is noted to be agitated overnight for which she was kept on high doses of fentanyl and Precedex. Otherwise patient is doing good and ABG done this morning showed mild respiratory acidosis. Patient was supposed to get cardiac cath today but the procedure is postponed for now. As patient is hemodynamically stable and is on minimal requirement of FiO2, planned to extubate. Patient was started on pressure support and titrated to wean her off sedation. Patient tolerated pressure support well and passed spontaneous breathing trial following which patient was extubated on 11/16/2024 around 10:20 AM. Patient is extubated to BiPAP. Later patient was noted to have multiple episodes of short lasting SVT and VT for which a dose of metoprolol 5 mg and Haldol, Seroquel is given as patient appears to be delirious and continuously got agitated saying that someone is trying to kill her. Patient was restarted on Precedex. Around 3 PM patient was started on the dialysis during which she needed vasopressor support for shock. ABG done after extubation is within normal limits. Patient was weaned off the BiPAP and kept on the oxy mask. Patient continued to develop SVT and bradycardia episodes for which patient was given amiodarone 150 mg bolus and started on drip. [employer], Dr. Escudero is following the patient and recommended to continue drip. ICD interrogation was done and showed multiple episodes of VT for which shock was delivered. Found to have Acinetobacter Iwofii on sputum culture for which patient was started on Unasyn 11/17/2024: Patient is seen and examined at bedside in the ICU. Overnight, patient was noted to have episodes of SVT and VT for which patient was given a dose of metoprolol 5 mg and in the view of agitation, patient also received 1 dose of olanzapine. At the time of examination in the morning, patient is able to answer some questions but still delirious and confused. Vitals are stable and patient is on OxyMask. Labs done this morning showed hemoglobin 7.9, platelets 104, sodium 133, potassium 3.6, BUN 30, creatinine 3.9. Patient was given a dose of 20 mill equivalents of IV potassium in view of continuous arrhythmias. Around 1:30 PM, patient was noted to have altered sensorium with difficulty breathing for which patient was kept on BiPAP despite which the saturations are low around 80s for which patient was intubated and kept on mechanical ventilator. A dose of labetalol 10 mg is given at the time in view of high blood pressures and suspected pulmonary edema. Will continue amiodarone, heparin drip. Repeat CBC, CMP, lactate and procalcitonin, ABG is ordered. Exam Vital Signs Temp Pulse Resp BP Pulse Ox O2 Del Method O2 Flow Rate 98.2 F 70 23 H 96/35 L 95 Oxy Mask 2 11/17/24 12:01 11/17/24 14:01 11/17/24 13:36 11/17/24 14:01 11/17/24 14:01 11/17/24 12:01 11/17/24 13:36 FiO2 100 11/17/24 14:01 Narrative Exam General: Sedated and Mechanically ventilated. HEENT: Normocephalic, atraumatic, mucous membranes moist. Heart: Irregular rate and rhythm, no murmurs. Lungs: Clear to auscultation with no wheezing or crackles. Abdomen: Soft, nondistended, nontender, positive bowel sounds. ?No guarding or rebound tenderness. Neurologic: Sedated and mechanically ventilated. Extremities: No edema. Left AV fistula noted. 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 Right upper extremity swelling Skin: No rash. ecchymotic patches noted on right arm and at the site of IV catheters Objective Labs 11/17/24 14:05 11/17/24 14:05 Labs: Laboratory Results - last 24 hr 11/15/24 11/16/24 11/17/24 05:10 18:45 02:29 WBC 6.3 D RBC 2.53 L Hgb 7.4 L Hct 22.6 L MCV 89 MCH 29.2 MCHC 32.7 RDW Std Deviation 58.8 H Plt Count 97 L D Neut % (Auto) 72 Lymph % (Auto) 12 Boundary % (Auto) 13 H Eos % (Auto) 2 Baso % (Auto) 1 Neut # (Auto) 4.6 Lymph # (Auto) 0.8 L Boundary # (Auto) 0.8 Eos # (Auto) 0.1 Baso # (Auto) 0.0 Immature Gran # (Auto) 0.04 H Absolute Nucleated RBC 0.00 Immature Gran % 1 H Nucleated RBC % 0 APTT 45.8 H D 98.4 H D Puncture Site ABG pH ABG pCO2 ABG pO2 ABG HCO3 ABG O2 Saturation ABG Base Excess Oxygen Liter Flow Sodium 133 L Potassium 3.8 D 3.6 Chloride 94 L Carbon Dioxide 27.2 Anion Gap 12 BUN 30 H Creatinine 3.9 H D Estim Creat Clear Calc 12.0 L eGFR 12 L* BUN/Creatinine Ratio 8 L Glucose 98 Calculated Osmolality 272 L Calcium 8.4 Corrected Calcium 9.0 Phosphorus 5.7 H Magnesium 2.3 2.4 Albumin 3.3 L Heparin-Ind Plt Ab Scrn NEGATIVE Heparin Dep Plt Ab OD 0.014 11/17/24 11/17/24 08:20 09:09 WBC 7.9 RBC 2.67 L Hgb 7.9 L Hct 24.0 L MCV 90 MCH 29.6 MCHC 32.9 RDW Std Deviation 58.7 H Plt Count 104 L Neut % (Auto) 80 Lymph % (Auto) 9 L Boundary % (Auto) 9 Eos % (Auto) 1 Baso % (Auto) 0 Neut # (Auto) 6.3 Lymph # (Auto) 0.7 L Boundary # (Auto) 0.7 Eos # (Auto) 0.1 Baso # (Auto) 0.0 Immature Gran # (Auto) 0.06 H Absolute Nucleated RBC 0.00 Immature Gran % 1 H Nucleated RBC % 0 APTT 67.8 H D Puncture Site Left Radial ABG pH 7.48 H ABG pCO2 33 ABG pO2 132 H D ABG HCO3 25 ABG O2 Saturation 101 H ABG Base Excess 1 Oxygen Liter Flow 4 Sodium Potassium Chloride Carbon Dioxide Anion Gap BUN Creatinine Estim Creat Clear Calc eGFR BUN/Creatinine Ratio Glucose Calculated Osmolality Calcium Corrected Calcium Phosphorus Magnesium Albumin Heparin-Ind Plt Ab Scrn Heparin Dep Plt Ab OD ABG Interpretation ABG results: 11/11/24 11/11/24 11/12/24 04:01 07:38 04:55 ABG pH 7.14 L* 7.37 D 7.26 L D ABG pCO2 71 H* 42 D 44 ABG pO2 116 H 97 95 ABG HCO3 24 24 20 ABG O2 Saturation 97 99 H 98 ABG Base Excess -6 L -1 -7 L 11/12/24 11/13/24 11/14/24 07:35 04:13 04:35 ABG pH Cancelled 7.42 D 7.46 H ABG pCO2 Cancelled 48 40 ABG pO2 Cancelled 79 L 106 D ABG HCO3 Cancelled 31 H 29 H ABG O2 Saturation Cancelled 97 99 H ABG Base Excess Cancelled 6 H 4 H 11/15/24 11/16/24 11/16/24 04:58 05:20 11:55 ABG pH 7.47 H 7.29 L D 7.41 D ABG pCO2 39 51 H D 39 D ABG pO2 100 234 H D 160 H D ABG HCO3 29 H 24 24 ABG O2 Saturation 99 H 100 H 100 H ABG Base Excess 5 H -2 0 11/17/24 09:09 ABG pH 7.48 H ABG pCO2 33 ABG pO2 132 H D ABG HCO3 25 ABG O2 Saturation 101 H ABG Base Excess 1 Quality Measures Quality Measures none Advance care planning discussed with:: other Assessment & Plan Assessment Current Active Medications: Generic Name Dose Route Start Last Admin Trade Name Freq PRN Reason Stop Dose Admin Acetaminophen 650 mg 11/11/24 05:17 Acetaminophen 325 Mg Tablet PO 12/11/24 05:16 Q6H PRN Fever >100.5 Albuterol/Ipratropium 3 ml 11/11/24 07:00 11/17/24 13:34 Albuterol/Ipratropium (Duoneb) Rt Poonam 3 Ml Nebu INH 12/11/24 06:59 3 ml Q4HRRT RAYO Administration Aspirin 81 mg 11/11/24 09:00 11/17/24 08:41 Aspirin 81 Mg Chew NG 12/11/24 08:59 Not Given QDAY RAYO Atorvastatin Calcium 40 mg 11/11/24 21:00 11/16/24 21:23 Atorvastatin Calcium 20 Mg Tablet NG 12/11/24 20:59 Not Given HS RAYO Bisacodyl 10 mg 11/16/24 10:09 11/16/24 10:44 Bisacodyl 10 Mg Supp NM 12/16/24 10:08 10 mg QDAY PRN Administration CONSTIPATION Protocol Clopidogrel Bisulfate 75 mg 11/14/24 09:00 11/17/24 08:41 Clopidogrel Bisulfate 75 Mg Tablet PO 12/14/24 08:59 Not Given QDAY RAYO Dextrose 25 ml 11/12/24 06:24 11/17/24 12:19 Dextrose 50%-Water Inj 50 Ml Syringe IV 12/12/24 06:23 25 ml Q15MIN PRN Administration BG 50-70 responsive npo pt Dextrose 50 ml 11/12/24 06:24 11/17/24 12:59 Dextrose 50%-Water Inj 50 Ml Syringe IV 12/12/24 06:23 50 ml Q15MIN PRN Administration BG <50 OR BG <70 & pt unresponsive Famotidine 20 mg 11/11/24 09:00 11/17/24 08:33 Famotidine Inj 10 Mg/Ml Vial 2 Ml IVP 12/11/24 08:59 20 mg QDAY RAYO Administration Protocol Glucagon 1 mg 11/12/24 06:24 Glucagon Inj 1 Mg Vial IM Q15MIN PRN BG <70, and no IV access Norepinephrine/Dextrose 8 mg in 250 mls @ 6.476 mls/hr 11/11/24 16:05 11/17/24 14:08 Levophed In D5w 8mg/250ml IV 12/11/24 16:04 0.07 mcg/kg/min .Q24H PRN 9.067 mls/hr PER PROTOCOL Titration Protocol 0.05 MCG/KG/MIN Dexmedetomidine/Sodium Chloride 400 mcg in 100 mls @ 3.375 mls/hr 11/13/24 09:53 11/17/24 11:15 Precedex Ivpb IV 12/13/24 09:42 0 mcg/kg/hr .Q24H PRN 0 mls/hr Per PROTOCOL Titration Protocol 0.2 MCG/KG/HR Albumin Human 25 gm in 100 mls @ 100 mls/min 11/14/24 08:47 11/14/24 18:41 Albuminar-25 Ivpb IV Infused PRN PRN Infusion DIALYSIS Heparin Sodium/Dextrose 25,000 unit in 250 mls @ 8.52 mls/hr 11/16/24 10:45 11/17/24 12:12 Heparin In D5w Ivpb IV 11/30/24 10:44 Not Given .Q24H RAYO Protocol 12 UNITS/KG/HR Ampicillin Sodium/Sulbactam 100 mls @ 200 mls/hr 11/16/24 18:00 11/17/24 08:33 Sodium 3 gm/ Sodium Chloride IV 11/23/24 17:59 200 mls/hr QDAY RAYO Administration Protocol Amiodarone HCl/Dextrose 360 mg in 200 mls @ 16.667 mls/hr 11/16/24 23:10 11/17/24 12:50 Nexterone Ivpb IV 11/17/24 23:09 16.667 mls/hr .Q12H RAYO Administration Lactated Ringer's 1,000 mls @ 999 mls/hr 11/17/24 13:39 11/17/24 14:05 Lactated Ringers IV 11/17/24 14:39 999 mls/hr .Q1H1M ONE Administration Magnesium Hydroxide 30 ml 11/16/24 10:08 11/16/24 10:46 Milk Of Magnesia Susp 30 Ml Udc PO 12/16/24 10:07 30 ml QDAY PRN Administration CONSTIPATION Protocol Metoprolol Tartrate 25 mg 11/14/24 11:30 11/17/24 08:41 Metoprolol Tartrate 25 Mg Tablet NG 12/14/24 11:29 Not Given BID RAYO Midodrine 10 mg 11/11/24 22:00 11/17/24 05:43 Midodrine 5 Mg Tablet NG 12/11/24 21:59 Not Given TID RAYO Ondansetron HCl 4 mg 11/11/24 05:17 Ondansetron Inj 2 Mg/Ml Inj 2 Ml IVP 12/11/24 05:16 Q6H PRN NAUSEA OR VOMITING Protocol Pharmacy Consult 1 each 11/11/24 05:27 Pharmacy Renal Dose Adjustment 1 Ea XX 12/11/24 05:26 PRN PRN CONSULT Quetiapine Fumarate 50 mg 11/16/24 09:45 11/17/24 08:41 Quetiapine Fumarate 25 Mg Tablet NG 12/16/24 09:44 Not Given Q12HR RAYO Sevelamer Carbonate 0.8 gm 11/14/24 08:00 11/17/24 12:13 Sevelamer Carbonate 0.8 Gm Packet (Non-Formulary) NG 12/14/24 07:59 Not Given TIDWM RAYO Sodium Chloride 3 ml 11/11/24 04:43 Sodium Chloride Rt Poonam 0.9% 3 Ml Nebu INH 12/11/24 04:42 PRN PRN SOLN Plan The patient is a 74-year-old female with significant past medical history of CHF, coronary artery disease with multiple MIs s/p stents, COPD on 3 L home oxygen, ESRD on hemodialysis, Thursday, Thursday, , Thursday, A-fib with pacemaker, brought in by EMS with chief complaint of acute SOB. The patient was intubated and admitted to ICU for further management of acute hypoxic hypercapnic respiratory failure secondary to COPD exacerbation. Neuro: #Acute encephalopathy - Patient was noted to have encephalopathy due to CO2 narcosis at the time of admission, later CO2 narcosis resolved with mechanical ventilation - Patient was extubated as of 11/16/2024, but still appears to be altered and delirious, thinking that someone is trying to kill her, Likely due to hospital induced delirium - On 11/17/2024, around 1:30 PM, patient developed acute respiratory failure with worsening of the mental status for which patient was reintubated again and kept on mechanical ventilator Plan - Will continue Precedex drip CVS: # CAD s/p multiple stents # S/p ICD # HFrEF, EF 30% in 2024 - Though patient presented with acute SOB, was found to have BNP 1999, no JVD or peripheral edema noted - EKG showed paced rhythm with ST elevation in 1, aVL and reciprocal depressions in 2, 3 and aVF suggestive of old MS - ECHO on 11/16/2024 - Findings are consistent with ischemic cardiomyopathy severe LV dysfunction heavy mitral annulus calcification calcification mitral apparatus with moderate to severe mitral stenosis and mild mitral regurgitation. No evidence of significant pulmonary hypertension. Plan - Low-sodium diet - Fluid restriction to 1500 cc daily - Talked to escort blind, Dr. Escudero about the EKG findings and he recommended that ST elevations are from old MS - Patient had history of NSTEMI in September, but rejected cardiac catheterization at that time, patient might be having ongoing ischemia due to which patient is having multiple episodes of SVT/VT - Planned to do cardiac catheterization on 11/16/2024 but not done, planning to do later in this week #Episode of SVT/VT 11/13/2024 Patient was given adenosine 6 mg IV x1, metoprolol 5 mg IV x1, diltiazem 10 mg IV x1 with conversion On 11/15/2023, when trying to wean patient off the sedation and kept on pressure support mode, patient became more agitated and developed multiple episodes of SVT and VT Plan - Continuous telemetry - Keep sedated overnight - Started on metoprolol tartarate 25mg twice daily through OG tube - Patient is using amiodarone 200 mg twice daily at home, as patient developed recurrent episodes of SVT/VT, started on amiodarone drip on 11/14/2024, and transition to oral amiodarone but as of 11/16/2024, patient was noted to have multiple episodes of SVT, VT which was also confirmed by ICD interrogation and patient noted to receive shock. As the patient is continuously developing episodes of SVT/VT, patient was given amiodarone bolus followed by drip. # History of atrial fibrillation Patient never had documented episodes of atrial fibrillation but on pacemaker tracing, noted to have atrial fibrillation for which patient was started on amiodarone and Eliquis - Patient is using Eliquis at home - Currently on amiodarone and heparin drip. # NSTEMI, likely type II versus type 1 Troponin is mildly elevated at the time of admission, 0.046 uptrended to 4.000 Though EKG showed changes of ST elevation, they are likely from the old MS - Will continue telemetry monitoring - Started heparin drip - Loading dose Plavix given 300 mg x1 - Start Plavix 75 mg qday - Following with Cardiology, Dr. Escudero - Planning to do cardiac cath later this week Pulmonology: #Acute hypoxic hypercapnic respiratory failure 2/2 #COPD exacerbation, resolved #Pulmonary edema Likely in the setting of worsening disease or superimposed bacterial infection and pulmonary edema in the setting of ESRD, Ongoing ischemic heart disease -Patient is a initially intubated on 11/11/2024 in view of acute hypoxic hypercapnic respiratory failure secondary to COPD exacerbation and pulmonary edema in the setting of CAD and ESRD - Patient is extubated on 11/16/2024 and is stable till 11/17/2024. Around 1:30 PM on 11/17/2024, patient developed sudden acute respiratory failure likely secondary due to pulmonary edema, ongoing CAD and patient was reintubated at that time Diagnostic test: - Tested negative for influenza A, B and COVID-19 - ABG at the time of admission showed pH 7.14, pCO2 71, PaO2 116, bicarb 24, oxygen saturation 97. - Chest x-ray showed cardiomegaly, infiltrates more on the right basilar area. - Labs showed WBC 13.5 - Tested negative for influenza A and B, COVID-19 - Blood cultures came back negative and 80 secretions came back positive for Acinetobacter Iwofii Treatment: - Patient is sedated, intubated and mechanically ventilated on 11/10/2024 - Received methylprednisolone 125 Mg IV x 1 in the ED - Started on methylprednisolone 60 Mg IV daily, completed 5 days on 11/14/2024 - Nebulizations every fourth of every, DuoNebs - Tried to wean the patient off ventilator on 11/13, 11/14 but noted to go to SVT and VT on both days. - Patient was extubated on 11/16/2024 and started on BiPAP and oxygen as needed and got reintubated on - Started on Unasyn as patient ET secretions culture tested positive for Acinetobacter Iwofii GI: - No active problems Renal: #ESRD on HD -Patient is having 4 dialysis sessions per week At the time of admission, pH of 7.14, pCO2 71, lactic acid 4.1 Plan - Telephone Directory Distributor Driver Dr. Mishra consulted, appreciate recommendations - Received HD session on 11/12/2024, 11/14/2024, 11/16/2024 - Will need HD as per her routine schedule - Will avoid nephrotoxic medications and renally dose medications - Needing vasopressor during the dialysis Hematology: #Leukocytosis, resolved Reactive versus steroid versus infective Secondary to pneumonia and COPD exacerbation - Continue to treat underlying cause #Normocytic anemia DDx: Inflammatory anemia due to chronic kidney disease, versus nutritional deficiency versus malabsorption - Workup as an outpatient basis # Thrombocytopenia, resolving - At the time of admission is 177 - Patient is started on heparin drip on 11/13/2024 in view of suspected ongoing acute ischemic heart disease. - Since then, noted to have downtrend in platelet count - Platelet count as of 11/15/2024 is 97,000 and on 11/16/2024 is within normal limits -->11/17, [id number] - Suspected HIT in the setting of heparin and thrombocytopenia, - HIT panel is sent, came back negative Plan - Will continue heparin drip for now - Will continue to monitor platelet count and if continues to drop, will hold the heparin drip. ID: #Suspected community-acquired pneumonia - Antibiotic therapy treatment as above - ET secretions culture showed Acinetobacter for which Unasyn was started Health maintenance: Dispo: ICU for further management of acute hypoxic hypercapnic respiratory failure secondary to COPD exacerbation, Pulmonary edema Diet: NPO as of now and will start on OG tube feeds Lines: Left IJ central line, peripheral lines DVT prophylaxis: Heparin CODE STATUS: Full code Patient plan of care was discussed with the nurse practitioner manager, Dr. Merritt. Elmer Husain, PGY2
[2024-11-17 14:16] LABS: Lactate (Lactic Acid) 1.3 mMol/L (0.4-2.0)
[2024-11-17 14:26] LABS: Basophils # (Auto) 0.0 Thou/mm3 (0.0-0.2); Basophils % (Auto) 0 % (0-2.5); Eosinophils # (Auto) 0.1 Thou/mm3 (0.0-0.5); Eosinophils % (Auto) 1 % (0-10); Hematocrit 23.3 % (36.0-46.0); Immature Granulocytes Auto 0.13 Thou/mm3 (0.00-0.00); Lymphocytes # (Auto) 0.4 Thou/mm3 (1.0-4.8); Lymphocytes % (Auto) 4 % (10-50); Mean Corpuscular HGB Conc 32.2 g/dl (31.0-37.0); Mean Corpuscular Hemoglobin 29.1 pg (25.0-35.0); Mean Corpuscular Volume 90 fL (80-100); Monocytes # (Auto) 0.6 Thou/mm3 (0.0-0.8); Monocytes % (Auto) 7 % (0-12); Neutrophils # (Auto) 7.9 Thou/mm3 (1.8-7.7); Neutrophils % (Auto) 87 % (37-80); Nucleated Red Blood Cell # 0.02 Thou/mm3 (0.00-0.00); Nucleated Red Blood Cell % 0 /100 WBC (0); Platelet Count 124 Thou/mm3 (140-440); RDW Standard Deviation 60.6 fL (36.4-46.3); Red Blood Count 2.58 Miln/mm3 (4.00-5.20); White Blood Count 9.1 Thou/mm3 (3.6-11.0)
[2024-11-17 14:39] LABS: Hemoglobin 7.5 g/dL (12.0-16.0)
[2024-11-17 14:49] LABS: Procalcitonin 1.25 ng/ml (0.0-0.49)
--- NOTE | 2024-11-17 15:11 | PC.SS ---
1511-Per afternoon rounding, pt's MRI was completed. Pending at this time is the EEG by Dr. Fairbanks. No d/c date at this time.
[2024-11-17 15:12] LABS: Alanine Aminotransferase < 7 U/L (10-49); Albumin, Serum 3.4 gm/dL (3.4-4.8); Albumin/Globulin Ratio 1.9 (1.2-2.2); Alkaline Phosphatase 78 U/L (46-116); Anion Gap 14 (7-16); Aspartate Amino Transferase 24 U/L (0-34); BUN/Creatinine Ratio 8 Ratio (12-20); Bilirubin,Total 0.3 mg/dL (0.3-1.2); Blood Urea Nitrogen 36 mg/dL (9-23); Calcium 8.7 mg/dL (8.3-10.6); Calcium (Corrected) 9.2 mg/dL (8.5-10.1); Carbon Dioxide 24.6 mMol/L (20.0-31.0); Chloride 92 mMol/L (98-107); Creatinine (Component) 4.4 mg/dL (0.6-1.3); Estimated Creatinine Clearance 10.7 mL/min (>60); Globulin 1.8 gm/dL (2.3-3.5); Glucose 231 mg/dL (74-106); Osmolality,Calculated 277 (275-295); Potassium 3.7 mMol/L (3.4-5.1); Sodium 131 mMol/L (136-145); Total Protein 5.2 gm/dL (5.7-8.2); eGFR 10 See Note
[2024-11-17] MEDS: fentaNYL CIT INJ 50 mCg/ML AMP 2ML IVP ×2 (15:17→15:36)
[2024-11-17 15:18] LABS: Troponin I 1.284 ng/mL (0.0-0.045)
[2024-11-17] MEDS: DEXMEDETOMIDINE 400 MCG IVPB 400 MCG/100 ML BAG 23.625 MCG IV ×2 (16:28→20:29)
[2024-11-17 16:54] LABS: Base Excess 1 (-3-3); HCO3 27 mEq/L (20-26); Inspired Oxygen, FIO2 100 %; O2 Saturation 100 % (91-98); PCO2 47 mmHg (32.0-48.0); PO2 154 mmHg (83-108); pH, Arterial 7.36 (7.35-7.45)
[2024-11-17 16:56] LABS: Allen Test Performed/OK; Puncture Site Right Brachial
--- NOTE | 2024-11-17 17:09 | XR_ITS ---
Examination: Abdomen AP single view Technique: AP portable supine abdomen, single view Exam date and time: November 17, 2024, 1712 hours INDICATIONS: Constipation beginning 2 days ago. FINDINGS: Moderate to large amounts of stool throughout the colon. No obstruction No free air. Heavy abdominal aortic calcification, transverse dimension abdominal aorta at the 3.1 cm Moderate narrowing hip joints Heavy cardiac calcification IMPRESSION: Moderate to large amounts of stool throughout the colon No obstruction.
[2024-11-17] MEDS: fentaNYL 2,500 MCG/250 ML BAG 2,500 MCG/250 ML BAG IV (17:35)
[2024-11-17] MEDS: Milk Of Magnesia Susp 30 ML UDC PO (18:05)
[2024-11-17 19:19] LABS: Partial Thromboplastin Time 52.8 Seconds (22.0-36.0)
[2024-11-17] MEDS: POTASSIUM CHLORIDE 10% 20 MEQ/15 ML UDC NG (20:13)
[2024-11-17] MEDS: Heparin/D5w 25K 250 ML Ivpb 25,000 UNIT/250 ML BAG 9.23 UNIT IV (20:14)
[2024-11-17] MEDS: ATORVASTATIN CALCIUM 20 MG TABLET 40 MG NG (21:09)
[2024-11-17] MEDS: MIDODRINE 5 MG TABLET 10 MG NG (21:09)
--- NOTE | 2024-11-17 21:37 | ESPR_ITS ---
<Statement entered by Jessenia Escudero MD - 11/20/24 18:38> I personally examined the patient evaluate the patient interrogated the ICD device patient had recurrent wide QRS complex tachycardia requiring multiple shocks appropriate shocks delivered she also with monomorphic ventricular tachycardia and ventricular fibrillation episodes. Condition remains critical prognosis guarded will try to get a consent from the friend of her family trying to coronary angiogram tomorrow if possible. Condition is critical prognosis guarded evaluated patient with resident physician evaluate the patient and agree with treatment plan recommendations will plan coronary angiogram November 18, 2024 Documentation for date of: 11/17/24 Subjective Subjective Interval history: Overnight, she continued to have tachyarrhytmia which was controlled with BB pushes. Today, she appeared to have agonal breathing and was desatting and subsequently required intubation. She was evaluated at bedside this evening, appears to have recurrent V. tach and V-fib, overall prognosis is poor. Still unable to provide consent for cath, additionally, she has no living relative to provide consent on her behalf. On previous admission, she denied aggressive measures including cardiac catheterization. However, she would likely benefit from emergent cardiac cath which will likely improve her symptoms and her prognosis. We will attempt cardiac cath if she is more stable and once pulmonary edema has improved. Exam Vital Signs Temp Pulse Resp BP Pulse Ox O2 Del Method O2 Flow Rate 97.8 F 70 16 121/55 L 97 Oxy Mask 2 11/17/24 16:01 11/17/24 21:09 11/17/24 18:40 11/17/24 21:09 11/17/24 18:40 11/17/24 12:01 11/17/24 13:36 FiO2 80 11/17/24 18:40 Narrative Exam General: Sedated and Mechanically ventilated. HEENT: Normocephalic, atraumatic, mucous membranes moist. Heart: Regular rate and rhythm, no murmurs. Lungs: Clear to auscultation with no wheezing or crackles. Abdomen: Soft, nondistended, nontender, positive bowel sounds. ?No guarding or rebound tenderness. Neurologic: Sedated and mechanically ventilated. Extremities: No edema. Left AV fistula noted Skin: No rash or ecchymoses. Objective Labs 11/17/24 14:05 11/17/24 14:05 Labs: Laboratory Results - last 24 hr 11/15/24 11/17/24 11/17/24 05:10 02:29 08:20 WBC 6.3 D 7.9 RBC 2.53 L 2.67 L Hgb 7.4 L 7.9 L Hct 22.6 L 24.0 L MCV 89 90 MCH 29.2 29.6 MCHC 32.7 32.9 RDW Std Deviation 58.8 H 58.7 H Plt Count 97 L D 104 L Neut % (Auto) 72 80 Lymph % (Auto) 12 9 L [place] % (Auto) 13 H 9 Eos % (Auto) 2 1 Baso % (Auto) 1 0 Neut # (Auto) 4.6 6.3 Lymph # (Auto) 0.8 L 0.7 L [place] # (Auto) 0.8 0.7 Eos # (Auto) 0.1 0.1 Baso # (Auto) 0.0 0.0 Immature Gran # (Auto) 0.04 H 0.06 H Absolute Nucleated RBC 0.00 0.00 Immature Gran % 1 H 1 H Nucleated RBC % 0 0 APTT 98.4 H D 67.8 H D Puncture Site ABG pH ABG pCO2 ABG pO2 ABG HCO3 ABG O2 Saturation ABG Base Excess Oxygen Liter Flow FiO2 Sodium 133 L Potassium 3.6 Chloride 94 L Carbon Dioxide 27.2 Anion Gap 12 BUN 30 H Creatinine 3.9 H D Estim Creat Clear Calc 12.0 L eGFR 12 L* BUN/Creatinine Ratio 8 L Glucose 98 Calculated Osmolality 272 L Lactic Acid Calcium 8.4 Corrected Calcium 9.0 Phosphorus 5.7 H Magnesium 2.4 Total Bilirubin AST ALT Alkaline Phosphatase Troponin I Total Protein Albumin 3.3 L Globulin Albumin/Globulin Ratio Procalcitonin 1.25 H Heparin-Ind Plt Ab Scrn NEGATIVE Heparin Dep Plt Ab OD 0.014 11/17/24 11/17/24 11/17/24 09:09 14:05 16:45 WBC 9.1 RBC 2.58 L Hgb 7.5 L Hct 23.3 L MCV 90 MCH 29.1 MCHC 32.2 RDW Std Deviation 60.6 H Plt Count 124 L Neut % (Auto) 87 H Lymph % (Auto) 4 L [place] % (Auto) 7 Eos % (Auto) 1 Baso % (Auto) 0 Neut # (Auto) 7.9 H Lymph # (Auto) 0.4 L [place] # (Auto) 0.6 Eos # (Auto) 0.1 Baso # (Auto) 0.0 Immature Gran # (Auto) 0.13 H Absolute Nucleated RBC 0.02 H Immature Gran % 1 H Nucleated RBC % 0 APTT Puncture Site Left Radial Right Brachial ABG pH 7.48 H 7.36 D ABG pCO2 33 47 D ABG pO2 132 H D 154 H D ABG HCO3 25 27 H ABG O2 Saturation 101 H 100 H ABG Base Excess 1 1 Oxygen Liter Flow 4 FiO2 100 Sodium 131 L Potassium 3.7 Chloride 92 L Carbon Dioxide 24.6 Anion Gap 14 BUN 36 H Creatinine 4.4 H* D Estim Creat Clear Calc 10.7 L eGFR 10 L* BUN/Creatinine Ratio 8 L Glucose 231 H D Calculated Osmolality 277 Lactic Acid 1.3 Calcium 8.7 Corrected Calcium 9.2 Phosphorus Magnesium Total Bilirubin 0.3 AST 24 ALT < 7 L Alkaline Phosphatase 78 Troponin I 1.284 H* Total Protein 5.2 L Albumin 3.4 Globulin 1.8 L Albumin/Globulin Ratio 1.9 Procalcitonin Heparin-Ind Plt Ab Scrn Heparin Dep Plt Ab OD 11/17/24 17:19 WBC RBC Hgb Hct MCV MCH MCHC RDW Std Deviation Plt Count Neut % (Auto) Lymph % (Auto) [place] % (Auto) Eos % (Auto) Baso % (Auto) Neut # (Auto) Lymph # (Auto) [place] # (Auto) Eos # (Auto) Baso # (Auto) Immature Gran # (Auto) Absolute Nucleated RBC Immature Gran % Nucleated RBC % APTT 52.8 H D Puncture Site ABG pH ABG pCO2 ABG pO2 ABG HCO3 ABG O2 Saturation ABG Base Excess Oxygen Liter Flow FiO2 Sodium Potassium Chloride Carbon Dioxide Anion Gap BUN Creatinine Estim Creat Clear Calc eGFR BUN/Creatinine Ratio Glucose Calculated Osmolality Lactic Acid Calcium Corrected Calcium Phosphorus Magnesium Total Bilirubin AST ALT Alkaline Phosphatase Troponin I Total Protein Albumin Globulin Albumin/Globulin Ratio Procalcitonin Heparin-Ind Plt Ab Scrn Heparin Dep Plt Ab OD ABG Interpretation ABG results: 11/11/24 11/11/24 11/12/24 04:01 07:38 04:55 ABG pH 7.14 L* 7.37 D 7.26 L D ABG pCO2 71 H* 42 D 44 ABG pO2 116 H 97 95 ABG HCO3 24 24 20 ABG O2 Saturation 97 99 H 98 ABG Base Excess -6 L -1 -7 L 11/12/24 11/13/24 11/14/24 07:35 04:13 04:35 ABG pH Cancelled 7.42 D 7.46 H ABG pCO2 Cancelled 48 40 ABG pO2 Cancelled 79 L 106 D ABG HCO3 Cancelled 31 H 29 H ABG O2 Saturation Cancelled 97 99 H ABG Base Excess Cancelled 6 H 4 H 11/15/24 11/16/24 11/16/24 04:58 05:20 11:55 ABG pH 7.47 H 7.29 L D 7.41 D ABG pCO2 39 51 H D 39 D ABG pO2 100 234 H D 160 H D ABG HCO3 29 H 24 24 ABG O2 Saturation 99 H 100 H 100 H ABG Base Excess 5 H -2 0 11/17/24 11/17/24 09:09 16:45 ABG pH 7.48 H 7.36 D ABG pCO2 33 47 D ABG pO2 132 H D 154 H D ABG HCO3 25 27 H ABG O2 Saturation 101 H 100 H ABG Base Excess 1 1 Quality Measures Quality Measures none Advance care planning discussed with:: patient Assessment & Plan Assessment Current Active Medications: Generic Name Dose Route Start Last Admin Trade Name Freq PRN Reason Stop Dose Admin Acetaminophen 650 mg 11/11/24 05:17 Acetaminophen 325 Mg Tablet PO 12/11/24 05:16 Q6H PRN Fever >100.5 Albuterol/Ipratropium 3 ml 11/11/24 07:00 11/17/24 18:39 Albuterol/Ipratropium (Duoneb) Rt Poonam 3 Ml Nebu INH 12/11/24 06:59 3 ml Q4HRRT RAYO Administration Amiodarone HCl 200 mg 11/18/24 09:00 Amiodarone Hcl 200 Mg Tablet NG 12/18/24 08:59 BID RAYO Aspirin 81 mg 11/11/24 09:00 11/17/24 08:41 Aspirin 81 Mg Chew NG 12/11/24 08:59 Not Given QDAY RAYO Atorvastatin Calcium 40 mg 11/11/24 21:00 11/17/24 21:09 Atorvastatin Calcium 20 Mg Tablet NG 12/11/24 20:59 40 mg HS RAYO Administration Bisacodyl 10 mg 11/16/24 10:09 11/16/24 10:44 Bisacodyl 10 Mg Supp NC 12/16/24 10:08 10 mg QDAY PRN Administration CONSTIPATION Protocol Clopidogrel Bisulfate 75 mg 11/18/24 09:00 Clopidogrel Bisulfate 75 Mg Tablet NG 12/18/24 08:59 QDAY RAYO Dextrose 25 ml 11/12/24 06:24 11/17/24 12:19 Dextrose 50%-Water Inj 50 Ml Syringe IV 12/12/24 06:23 25 ml Q15MIN PRN Administration BG 50-70 responsive npo pt Dextrose 50 ml 11/12/24 06:24 11/17/24 18:08 Dextrose 50%-Water Inj 50 Ml Syringe IV 12/12/24 06:23 50 ml Q15MIN PRN Administration BG <50 OR BG <70 & pt unresponsive Famotidine 20 mg 11/11/24 09:00 11/17/24 08:33 Famotidine Inj 10 Mg/Ml Vial 2 Ml IVP 12/11/24 08:59 20 mg QDAY RAYO Administration Protocol Glucagon 1 mg 11/12/24 06:24 Glucagon Inj 1 Mg Vial IM Q15MIN PRN BG <70, and no IV access Norepinephrine/Dextrose 8 mg in 250 mls @ 6.476 mls/hr 11/11/24 16:05 11/17/24 20:00 Levophed In D5w 8mg/250ml IV 12/11/24 16:04 0.05 mcg/kg/min .Q24H PRN 6.476 mls/hr PER PROTOCOL Titration Protocol 0.05 MCG/KG/MIN Dexmedetomidine/Sodium Chloride 400 mcg in 100 mls @ 3.375 mls/hr 11/13/24 09:53 11/17/24 20:29 Precedex Ivpb IV 12/13/24 09:42 1.4 mcg/kg/hr .Q24H PRN 23.625 mls/hr Per PROTOCOL Administration Protocol 0.2 MCG/KG/HR Albumin Human 25 gm in 100 mls @ 100 mls/min 11/14/24 08:47 11/14/24 18:41 Albuminar-25 Ivpb IV Infused PRN PRN Infusion DIALYSIS Heparin Sodium/Dextrose 25,000 unit in 250 mls @ 8.52 mls/hr 11/16/24 10:45 11/17/24 20:14 Heparin In D5w Ivpb IV 11/30/24 10:44 13 units/kg/hr .Q24H RAYO 9.23 mls/hr Administration Protocol 12 UNITS/KG/HR Ampicillin Sodium/Sulbactam 100 mls @ 200 mls/hr 11/16/24 18:00 11/17/24 08:33 Sodium 3 gm/ Sodium Chloride IV 11/23/24 17:59 200 mls/hr QDAY RAYO Administration Protocol Amiodarone HCl/Dextrose 360 mg in 200 mls @ 16.667 mls/hr 11/16/24 23:10 11/17/24 12:50 Nexterone Ivpb IV 11/17/24 23:09 16.667 mls/hr .Q12H RAYO Administration Fentanyl Citrate 2,500 mcg in 250 mls @ 2.5 mls/hr 11/17/24 16:08 11/17/24 20:00 Sublimaze Inj 2,500 Mcg/250 Ml Bag IV 11/22/24 16:07 100 mcg/hr .Q24H PRN 10 mls/hr PER PROTOCOL Titration Protocol 25 MCG/HR Magnesium Hydroxide 30 ml 11/16/24 10:08 11/16/24 10:46 Milk Of Magnesia Susp 30 Ml Udc PO 12/16/24 10:07 30 ml QDAY PRN Administration CONSTIPATION Protocol Metoprolol Tartrate 25 mg 11/14/24 11:30 11/17/24 08:41 Metoprolol Tartrate 25 Mg Tablet NG 12/14/24 11:29 Not Given BID RAYO Midodrine 10 mg 11/11/24 22:00 11/17/24 21:09 Midodrine 5 Mg Tablet NG 12/11/24 21:59 10 mg TID RAYO Administration Ondansetron HCl 4 mg 11/11/24 05:17 Ondansetron Inj 2 Mg/Ml Inj 2 Ml IVP 12/11/24 05:16 Q6H PRN NAUSEA OR VOMITING Protocol Pharmacy Consult 1 each 11/11/24 05:27 Pharmacy Renal Dose Adjustment 1 Ea XX 12/11/24 05:26 PRN PRN CONSULT Sevelamer Carbonate 0.8 gm 11/14/24 08:00 11/17/24 18:05 Sevelamer Carbonate 0.8 Gm Packet (Non-Formulary) NG 12/14/24 07:59 Not Given TIDWM RAYO Sodium Chloride 3 ml 11/11/24 04:43 Sodium Chloride Rt Poonam 0.9% 3 Ml Nebu INH 12/11/24 04:42 PRN PRN SOLN Plan The patient is a 74-year-old female with a history of CHF, CAD with multiple MIs and stents, COPD on 3 L home oxygen, ESRD on hemodialysis, and atrial fibrillation with pacemaker, who presented on 11/11/24 via EMS with acute shortness of breath. At home, she was hypoxic with oxygen saturation in the 80s and received DUONEB during transport. In the ED, she was saturating at 84% on high-flow CPAP, hypertensive to 200/76 mmHg, and altered. ABG demonstrated acute hypercapnic and hypoxic respiratory failure (pH 7.14, pCO? 71, pO? 116). CXR showed right lower lobe pneumonia. Labs revealed leukocytosis, elevated BNP (2005), elevated D-dimer, mild troponin rise (0.046), and creatinine consistent with ESRD. She was intubated, given METHYLPREDNISOLONE, fluids, CEFIXIME, and VANCOMYCIN, and admitted to the ICU. 1. Acute hypoxic respiratory failure secondary to chronic obstructive lung disease and acute decompensated congestive heart failure, flash pulmonary edema requiring mechanical ventilation. 2. Acute non-ST segment elevation myocardial infarction with persistent ST segment changes, chronically elevated due to left ventricular inferobasal and posterobasal aneurysm. 3. Coronary artery disease status post multivessel stent placement. 4. End-stage renal disease on hemodialysis. 5. Severe chronic obstructive lung disease. 6. Paroxysmal atrial fibrillation. 7. Vtach 8. Pulmonary edema She has a known respiratory failure on home 3 L oxygen likely from COPD and CHF. Echo in 2003 showing EF 45%, mild hypokinesis of basal septal/inferior wall as well as mild diastolic dysfunction, in addition to mild to severe mitral annular calcification, moderate MR, trace AI/PI, mild TR. Additionally, EKG from 2023 showed atrial fibrillation which appear paroxysmal. Today she appeared to be having recurrent wide-complex tachycardia, suggestive of V. tach. Additionally, she has been going into SVT and tachyarrhythmia during extubation, which has been deferred at this point. Troponin continue to elevated, currently around 4.0. As such, she likely has underlying ischemic cardiomyopathy possibly leading to recurrent arrhythmia, and she has received multiple doses of ADENOSINE for this. 11/17/2024: Required intubation again for recurrent pulmonary edema and hypoxemia. Appears to have recurrent v-tach/v-fib poorly controlled. Recommendations include: Continue HEPARIN GGT, PLAVIX and ASPIRIN. Continue AMIODARONE drip for tachyarrhythmia with the addition of METOPROLOL pushes as needed for tachycardia. Will attempt cardiac cath tomorrow if she is more safe for procedure, and able to provide consent. Continue cardiac stratification. Continue ventilation support and sedation. Maintain K > 4.0 and Mg > 2.0. Continue MIDODRINE and VASOPRESSORS as needed to maintain MAP above 65. Continue treating pneumonia. Case was discussed with attending physician, Dr. Escudero. Richard Gan, DO PGY II This document was transcribed using voice recognition technology. Minor inaccuracies may be present.
[2024-11-17] MEDS: METOPROLOL TARTRATE 25 MG TABLET NG (21:58)
[2024-11-18] VITALS (130 sets, daily range): BP systolic 77–209; BP diastolic 37–106; PULSE 60–101; RESP 7–21; TEMP 35.6–36.9; O2SAT 100; BMI 25.1
[2024-11-18] MEDS: ALBUTEROL/IPRATROPIUM (Duoneb) RT SOL 3 ML NEBU INH ×6 (00:06→22:21)
[2024-11-18] MEDS: DEXMEDETOMIDINE 400 MCG IVPB 400 MCG/100 ML BAG 23.625 MCG IV ×6 (00:50→20:15)
--- NOTE | 2024-11-18 05:00 | XR_ITS ---
Examination: AP chest single view Findings one AP portable semiupright chest single view Date and time: November 18, 2024, 0623 hours, comparison November 17, 2024 INDICATIONS: Acute hypoxic respiratory failure this week post intubation. FINDINGS: [id number] heart failure. Moderate lateral cardiac contour, pulmonary vascular congestion with perihilar edema. Bibasilar pneumonia and/or edema. Endotracheal tube tip 7 cm above [place]. Left internal jugular central line tip SVC. Cardiac leads stable position. Orogastric tube in the stomach satisfactory position. Prominent osteopenia IMPRESSION: [id number] heart failure. Bibasilar pneumonia and/or pulmonary edema [id number] bilateral pleural effusions
[2024-11-18 05:06] LABS: Base Excess 2 (-3-3); HCO3 27 mEq/L (20-26); Inspired Oxygen, FIO2 21 %; O2 Saturation 101 % (91-98); PCO2 44 mmHg (32.0-48.0); PO2 203 mmHg (83-108); pH, Arterial 7.40 (7.35-7.45)
[2024-11-18 05:12] LABS: Allen Test Performed/OK; Puncture Site Right Brachial
[2024-11-18] MEDS: MIDODRINE 5 MG TABLET 10 MG NG ×3 (05:27→21:09)
[2024-11-18 06:07] LABS: Albumin, Serum 3.0 gm/dL (3.4-4.8); Anion Gap 14 (7-16); BUN/Creatinine Ratio 7 Ratio (12-20); Blood Urea Nitrogen 34 mg/dL (9-23); Calcium 8.4 mg/dL (8.3-10.6); Calcium (Corrected) 9.2 mg/dL (8.5-10.1); Carbon Dioxide 25.5 mMol/L (20.0-31.0); Chloride 91 mMol/L (98-107); Creatinine (Component) 4.7 mg/dL (0.6-1.3); Estimated Creatinine Clearance 10.0 mL/min (>60); Glucose 124 mg/dL (74-106); Magnesium 2.4 mg/dL (1.6-2.6); Osmolality,Calculated 269 (275-295); Phosphorous 6.2 mg/dL (2.4-5.1); Potassium 4.2 mMol/L (3.4-5.1); Sodium 130 mMol/L (136-145); eGFR 9 See Note
[2024-11-18 06:12] LABS: Basophils # (Auto) 0.0 Thou/mm3 (0.0-0.2); Basophils % (Auto) 0 % (0-2.5); Eosinophils # (Auto) 0.2 Thou/mm3 (0.0-0.5); Eosinophils % (Auto) 3 % (0-10); Immature Granulocytes Auto 0.09 Thou/mm3 (0.00-0.00); Lymphocytes # (Auto) 1.0 Thou/mm3 (1.0-4.8); Lymphocytes % (Auto) 15 % (10-50); Mean Corpuscular HGB Conc 33.0 g/dl (31.0-37.0); Mean Corpuscular Hemoglobin 29.3 pg (25.0-35.0); Mean Corpuscular Volume 89 fL (80-100); Monocytes # (Auto) 0.6 Thou/mm3 (0.0-0.8); Monocytes % (Auto) 10 % (0-12); Neutrophils # (Auto) 4.3 Thou/mm3 (1.8-7.7); Neutrophils % (Auto) 70 % (37-80); Nucleated Red Blood Cell # 0.00 Thou/mm3 (0.00-0.00); Nucleated Red Blood Cell % 0 /100 WBC (0); Platelet Count 94 Thou/mm3 (140-440); RDW Standard Deviation 58.5 fL (36.4-46.3); Red Blood Count 2.29 Miln/mm3 (4.00-5.20); White Blood Count 6.2 Thou/mm3 (3.6-11.0)
[2024-11-18 06:21] LABS: Hematocrit 20.3 % (36.0-46.0); Hemoglobin 6.7 g/dL (12.0-16.0)
[2024-11-18 07:32] LABS: Misc Send Out* See Sep Rpt
[2024-11-18 08:41] LABS: Path Review Blood Smear Sent to Pathologist
[2024-11-18 08:56] LABS: Partial Thromboplastin Time 52.6 Seconds (22.0-36.0)
--- NOTE | 2024-11-18 09:05 | PD.RESPRO ---
Documentation for date of: 11/18/24 Subjective Subjective Interval history: Reason for consult: ESRD, acute respiratory failure, need for dialysis History of present illness: Mirella Grewal is a 74-year-old F with a PMH of CHF, coronary artery disease with multiple MIs s/p stents, COPD on 3 L home oxygen, ESRD on hemodialysis, Thursday, Thursday, , Thursday, and A-fib with pacemaker, who was brought in by EMS with a chief complaint of acute SOB. Per Internal Medicine team note, the patient called EMS due to SOB, and was saturating around 80% at home. She was given DuoNebs on the way to hospital and, when she presented to the ED, was saturating at 84% on high-flow CPAP. At this point, she was already altered, and was intubated. Internal Medicine team could not obtain further history due to patient already being intubated during their evaluation. Of note, patient has multiple prior hospitalizations for similar presentations of acute hypoxic respiratory failure including in November 2023 and September 2023. In the ED, vitals showed: BP 200/76 HR 79 RR 20 Temp 98.6 SpO2 84% on high flow CPAP, ED Course: CBC showed high WBC 13.5, and low Hgb 11.1 (MCV 96, RDW 63.4). Coagulation panel showed critically elevated D-dimer 2630 but was otherwise within normal limits. ABG showed normal pH 7.37, normal pCO2 42, normal PO2 97, and normal HCO3 24. CMP showed high BUN 39, critically elevated creatinine 6.4, critically low EGFR 6, high lactic acid 4.1, high blood glucose 184, low corrected calcium 7.7, critically elevated troponin I 0.046, critically elevated BNP 2006, high TSH 6.61, and low free T4 0.84. UA showed turbid orange urine with a basic pH of 8.0. It also showed 2+ urine protein, 2+ urine blood, high urine RBC 502, high urine WBC 1255, high urine squamous epithelial cells 29, but no urine bacteria. UDS was negative. Rapid RSV was negative. Imaging: Chest x-ray showed moderate congestive heart failure with prominent vascular congestion and perihilar basilar edema. Head CT was unremarkable. Chest CT showed bilateral thyroid nodules, mild heart failure with moderate enlargement of the cardiac contour, bibasilar pneumonia, numerous bilateral positioned metastatic pulmonary nodules, small bilateral pleural effusions, and cholelithiasis. EKG showed old TX. In the ED, patient was received methylprednisone 125 Mg IV x 1, bolus fluid 1 L at the rate 250 cc/h, cefixime 2 g IV x 1, and was started on vancomycin. The patient was intubated and admitted to ICU for further management of acute hypoxic hypercapnic respiratory failure secondary to COPD exacerbation. We, the nephrology team, were consulted for the patient's combined respiratory and metabolic acidosis and need for urgent hemodialysis due to ESRD status. Cardiology is also following. Interval History 11/16/2024: No overnight events. Patient seen and examined at bedside; she continues to be intubated and is unable to comment on her well-being or endorse new complaints or symptoms. Notable labs today include Hgb 9.0, APTT 66.7, blood pH 7.29, Na 127, Cl 88, BUN bump to 46 from 27, creatinine bump to 5.1 from 4.2, eGFR drop to 8 from 11, and phosphorus bump to 8.0 from 6.5. 11/16 CXR showed moderate heart failure with findings suggestive of superimposed pneumonia at the lung bases. Her abdomen also appears more distended today. Patient is having cardiac catheter performed by Dr. Escudero at 11:30 AM today with plans to extubate once the procedure is complete and patient is hemodynamically stable. From a nephrology standpoint, patient will be receiving HD today. 11/17/2024: No overnight events. Patient seen and examined at bedside; she is no longer intubated (extubated yesterday). Patient was awake and attempted to communicate with this technical document writer but her voice was very quiet, hoarse, and low so it was difficult to understand her. She seemed to want soap for her hand but this technical document writer was unable to tell for certain. Notable labs today include: Hgb 7.9, platelet count 104, APTT drop to 67.8 from 98.4, blood pH bump to 7.48 from 7.41, Na bump to 133 from 127, BUN drop to 30 from 46, creatinine drop to 3.9 from 5.1, eGFR bump to 12 from 8, and phosphorus drop to 5.7 from 8.0. Patient was scheduled for cardiac catheterization yesterday for her ischemic heart disease thought to be causing her recurrent SVT and VT (triggering ICD shocks) but this was canceled by cardiology. From nephrology's standpoint, we will hold off on hemodialysis for today. 11/18/2024: No overnight events. Patient seen and examined at bedside; she has been intubated once again due to agonal breathing and desaturations noted yesterday. Per cardiology, she continues to have recurrent episodes of V-tach and V-fib and the overall prognosis is poor. She also remains unable to provide consent for cardiac catheterization due to her incapacitation and lack of a living relative to provide consent on her behalf. A cardiac catheterization will be attempted if she becomes more stable and her pulmonary edema improves. Notable labs today include: Hgb 6.7, APTT 52.6, Na 130, BUN drop to 34 from 36, creatinine bump to 4.7 from 4.4, and phosphorus 6.2. Repeat CXR today shows [id number] heart failure, bibasilar pneumonia and/or pulmonary edema, and [id number] bilateral pleural effusions. From nephrology's standpoint, patient will be receiving HD w/ pRBC today. Exam Vital Signs Temp Pulse Resp BP Pulse Ox O2 Del Method O2 Flow Rate 97.1 F 71 19 162/54 H 100 Oxy Mask 2 11/18/24 04:00 11/18/24 06:46 11/18/24 04:03 11/18/24 06:46 11/18/24 04:03 11/17/24 12:01 11/17/24 13:36 FiO2 80 11/18/24 04:03 Narrative Exam General: Intubated. Unable to assess A&O status due to patient's inability to speak, no acute distress. Skin: Some skin break down on LUE wrist fistula. Warm, dry. Head: Normocephalic, atraumatic. Eyes: EOMI, anicteric. Cardiovascular: Regular rate and rhythm, no murmur, no JVD or carotid bruits. +S1/S2. Respiratory: Labored breathing with hoarse rhonchi bilaterally. Decreased breath sounds at the base. No crackles, no wheezing. No accessory muscle use. Gastrointestinal: Abdomen appears somewhat distended. Soft, nontender, no palpable masses. Extremities: Right hand and forearm appears bruised and swollen with gauze wrapped around it. Smaller area of bruising noted on left hand dorsum. RUE hand edema> LUE edema. Cool to touch. 2+ dorsal pedalis, UE in restraints. Neuro: Deferred. Objective Labs 11/18/24 12:54 11/18/24 04:30 Labs: Laboratory Results - last 24 hr 11/17/24 11/17/24 11/17/24 08:20 09:09 14:05 WBC 7.9 9.1 RBC 2.67 L 2.58 L Hgb 7.9 L 7.5 L Hct 24.0 L 23.3 L MCV 90 90 MCH 29.6 29.1 MCHC 32.9 32.2 RDW Std Deviation 58.7 H 60.6 H Plt Count 104 L 124 L Neut % (Auto) 80 87 H Lymph % (Auto) 9 L 4 L [place] % (Auto) 9 7 Eos % (Auto) 1 1 Baso % (Auto) 0 0 Neut # (Auto) 6.3 7.9 H Lymph # (Auto) 0.7 L 0.4 L [place] # (Auto) 0.7 0.6 Eos # (Auto) 0.1 0.1 Baso # (Auto) 0.0 0.0 Immature Gran # (Auto) 0.06 H 0.13 H Absolute Nucleated RBC 0.00 0.02 H Immature Gran % 1 H 1 H Nucleated RBC % 0 0 Smear Path Review APTT 67.8 H D Puncture Site Left Radial ABG pH 7.48 H ABG pCO2 33 ABG pO2 132 H D ABG HCO3 25 ABG O2 Saturation 101 H ABG Base Excess 1 Oxygen Liter Flow 4 FiO2 Sodium 131 L Potassium 3.7 Chloride 92 L Carbon Dioxide 24.6 Anion Gap 14 BUN 36 H Creatinine 4.4 H* D Estim Creat Clear Calc 10.7 L eGFR 10 L* BUN/Creatinine Ratio 8 L Glucose [address] Glu mg/dL Hemoglobin A1c Calculated Osmolality 277 Lactic Acid 1.3 Calcium 8.7 Corrected Calcium 9.2 Phosphorus Magnesium Total Bilirubin 0.3 AST 24 ALT < 7 L Alkaline Phosphatase 78 Troponin I 1.284 H* Total Protein 5.2 L Albumin 3.4 Globulin 1.8 L Albumin/Globulin Ratio 1.9 Procalcitonin 1.25 H Blood Type Antibody Screen Crossmatch Blood Bank Wristband ID 11/17/24 11/17/24 11/18/24 16:45 17:19 04:30 WBC 6.2 RBC 2.29 L Hgb 6.7 L* Hct 20.3 L* MCV 89 MCH 29.3 MCHC 33.0 RDW Std Deviation 58.5 H Plt Count 94 L D Neut % (Auto) 70 Lymph % (Auto) 15 [place] % (Auto) 10 Eos % (Auto) 3 Baso % (Auto) 0 Neut # (Auto) 4.3 Lymph # (Auto) 1.0 [place] # (Auto) 0.6 Eos # (Auto) 0.2 Baso # (Auto) 0.0 Immature Gran # (Auto) 0.09 H Absolute Nucleated RBC 0.00 Immature Gran % 2 H Nucleated RBC % 0 Smear Path Review Sent to Pathologist APTT 52.8 H D 52.6 H Puncture Site Right Brachial ABG pH 7.36 D ABG pCO2 47 D ABG pO2 154 H D ABG HCO3 27 H ABG O2 Saturation 100 H ABG Base Excess 1 Oxygen Liter Flow FiO2 100 Sodium 130 L Potassium 4.2 D Chloride 91 L Carbon Dioxide 25.5 Anion Gap 14 BUN 34 H Creatinine 4.7 H* Estim Creat Clear Calc 10.0 L eGFR 9 L* BUN/Creatinine Ratio 7 L Glucose [address] Glu mg/dL Cancelled Hemoglobin A1c Cancelled Calculated Osmolality 269 L Lactic Acid Calcium 8.4 Corrected Calcium 9.2 Phosphorus 6.2 H Magnesium 2.4 Total Bilirubin AST ALT Alkaline Phosphatase Troponin I Total Protein Albumin 3.0 L Globulin Albumin/Globulin Ratio Procalcitonin Blood Type Antibody Screen Crossmatch Blood Bank Wristband ID 11/18/24 11/18/24 05:00 06:36 WBC RBC Hgb Hct MCV MCH MCHC RDW Std Deviation Plt Count Neut % (Auto) Lymph % (Auto) [place] % (Auto) Eos % (Auto) Baso % (Auto) Neut # (Auto) Lymph # (Auto) [place] # (Auto) Eos # (Auto) Baso # (Auto) Immature Gran # (Auto) Absolute Nucleated RBC Immature Gran % Nucleated RBC % Smear Path Review APTT Puncture Site Right Brachial ABG pH 7.40 ABG pCO2 44 ABG pO2 203 H D ABG HCO3 27 H ABG O2 Saturation 101 H ABG Base Excess 2 Oxygen Liter Flow FiO2 21 Sodium Potassium Chloride Carbon Dioxide Anion Gap BUN Creatinine Estim Creat Clear Calc eGFR BUN/Creatinine Ratio Glucose Estimated Ave Glu mg/dL Hemoglobin A1c Calculated Osmolality Lactic Acid Calcium Corrected Calcium Phosphorus Magnesium Total Bilirubin AST ALT Alkaline Phosphatase Troponin I Total Protein Albumin Globulin Albumin/Globulin Ratio Procalcitonin Blood Type A Positive Antibody Screen NEGATIVE Crossmatch See Detail Blood Bank Wristband ID Yes ABG Interpretation ABG results: 11/11/24 11/11/24 11/12/24 04:01 07:38 04:55 ABG pH 7.14 L* 7.37 D 7.26 L D ABG pCO2 71 H* 42 D 44 ABG pO2 116 H 97 95 ABG HCO3 24 24 20 ABG O2 Saturation 97 99 H 98 ABG Base Excess -6 L -1 -7 L 11/12/24 11/13/24 11/14/24 07:35 04:13 04:35 ABG pH Cancelled 7.42 D 7.46 H ABG pCO2 Cancelled 48 40 ABG pO2 Cancelled 79 L 106 D ABG HCO3 Cancelled 31 H 29 H ABG O2 Saturation Cancelled 97 99 H ABG Base Excess Cancelled 6 H 4 H 11/15/24 11/16/24 11/16/24 04:58 05:20 11:55 ABG pH 7.47 H 7.29 L D 7.41 D ABG pCO2 39 51 H D 39 D ABG pO2 100 234 H D 160 H D ABG HCO3 29 H 24 24 ABG O2 Saturation 99 H 100 H 100 H ABG Base Excess 5 H -2 0 11/17/24 11/17/24 11/18/24 09:09 16:45 05:00 ABG pH 7.48 H 7.36 D 7.40 ABG pCO2 33 47 D 44 ABG pO2 132 H D 154 H D 203 H D ABG HCO3 25 27 H 27 H ABG O2 Saturation 101 H 100 H 101 H ABG Base Excess 1 1 2 Quality Measures Quality Measures none Advance care planning discussed with:: patient Assessment & Plan Assessment Current Active Medications: Generic Name Dose Route Start Last Admin Trade Name Freq PRN Reason Stop Dose Admin Acetaminophen 650 mg 11/11/24 05:17 Acetaminophen 325 Mg Tablet PO 12/11/24 05:16 Q6H PRN Fever >100.5 Albuterol/Ipratropium 3 ml 11/11/24 07:00 11/18/24 06:54 Albuterol/Ipratropium (Duoneb) Rt Poonam 3 Ml Nebu INH 12/11/24 06:59 3 ml Q4HRRT RAYO Administration Amiodarone HCl 200 mg 11/18/24 09:00 Amiodarone Hcl 200 Mg Tablet NG 12/18/24 08:59 BID RAYO Aspirin 81 mg 11/11/24 09:00 11/17/24 08:41 Aspirin 81 Mg Chew NG 12/11/24 08:59 Not Given QDAY RAYO Atorvastatin Calcium 40 mg 11/11/24 21:00 11/17/24 21:09 Atorvastatin Calcium 20 Mg Tablet NG 12/11/24 20:59 40 mg HS RAYO Administration Bisacodyl 10 mg 11/16/24 10:09 11/16/24 10:44 Bisacodyl 10 Mg Supp IA 12/16/24 10:08 10 mg QDAY PRN Administration CONSTIPATION Protocol Clopidogrel Bisulfate 75 mg 11/18/24 09:00 Clopidogrel Bisulfate 75 Mg Tablet NG 12/18/24 08:59 QDAY RAYO Dextrose 25 ml 11/12/24 06:24 11/17/24 12:19 Dextrose 50%-Water Inj 50 Ml Syringe IV 12/12/24 06:23 25 ml Q15MIN PRN Administration BG 50-70 responsive npo pt Dextrose 50 ml 11/12/24 06:24 11/17/24 18:08 Dextrose 50%-Water Inj 50 Ml Syringe IV 12/12/24 06:23 50 ml Q15MIN PRN Administration BG <50 OR BG <70 & pt unresponsive Epoetin Dipesh 10,000 unit 11/18/24 14:00 Epoetin Dipesh-Epbx Inj 10,000 Unit/Ml Vial (Esrd) SC 11/18/24 14:01 X1 ONE Famotidine 20 mg 11/11/24 09:00 11/17/24 08:33 Famotidine Inj 10 Mg/Ml Vial 2 Ml IVP 12/11/24 08:59 20 mg QDAY RAYO Administration Protocol Glucagon 1 mg 11/12/24 06:24 Glucagon Inj 1 Mg Vial IM Q15MIN PRN BG <70, and no IV access Norepinephrine/Dextrose 8 mg in 250 mls @ 6.476 mls/hr 11/11/24 16:05 11/18/24 06:00 Levophed In D5w 8mg/250ml IV 12/11/24 16:04 0.05 mcg/kg/min .Q24H PRN 6.476 mls/hr PER PROTOCOL Titration Protocol 0.05 MCG/KG/MIN Dexmedetomidine/Sodium Chloride 400 mcg in 100 mls @ 3.375 mls/hr 11/13/24 09:53 11/18/24 06:00 Precedex Ivpb IV 12/13/24 09:42 1.4 mcg/kg/hr .Q24H PRN 23.625 mls/hr Per PROTOCOL Titration Protocol 0.2 MCG/KG/HR Albumin Human 25 gm in 100 mls @ 100 mls/min 11/14/24 08:47 11/14/24 18:41 Albuminar-25 Ivpb IV Infused PRN PRN Infusion DIALYSIS Heparin Sodium/Dextrose 25,000 unit in 250 mls @ 8.52 mls/hr 11/16/24 10:45 11/17/24 20:14 Heparin In D5w Ivpb IV 11/30/24 10:44 13 units/kg/hr .Q24H RAOY 9.23 mls/hr Administration Protocol 12 UNITS/KG/HR Ampicillin Sodium/Sulbactam 100 mls @ 200 mls/hr 11/16/24 18:00 11/17/24 08:33 Sodium 3 gm/ Sodium Chloride IV 11/23/24 17:59 200 mls/hr QDAY RAYO Administration Protocol Fentanyl Citrate 2,500 mcg in 250 mls @ 2.5 mls/hr 11/17/24 16:08 11/18/24 06:00 Sublimaze Inj 2,500 Mcg/250 Ml Bag IV 11/22/24 16:07 250 mcg/hr .Q24H PRN 25 mls/hr PER PROTOCOL Titration Protocol 25 MCG/HR Magnesium Hydroxide 30 ml 11/16/24 10:08 11/16/24 10:46 Milk Of Magnesia Susp 30 Ml Udc PO 12/16/24 10:07 30 ml QDAY PRN Administration CONSTIPATION Protocol Metoprolol Tartrate 25 mg 11/14/24 11:30 11/17/24 21:58 Metoprolol Tartrate 25 Mg Tablet NG 12/14/24 11:29 25 mg BID RAYO Administration Midodrine 10 mg 11/11/24 22:00 11/18/24 05:27 Midodrine 5 Mg Tablet NG 12/11/24 21:59 10 mg TID RAYO Administration Ondansetron HCl 4 mg 11/11/24 05:17 Ondansetron Inj 2 Mg/Ml Inj 2 Ml IVP 12/11/24 05:16 Q6H PRN NAUSEA OR VOMITING Protocol Pharmacy Consult 1 each 11/11/24 05:27 Pharmacy Renal Dose Adjustment 1 Ea XX 12/11/24 05:26 PRN PRN CONSULT Sevelamer Carbonate 0.8 gm 11/14/24 08:00 11/17/24 18:05 Sevelamer Carbonate 0.8 Gm Packet (Non-Formulary) NG 12/14/24 07:59 Not Given TIDWM RAYO Sodium Chloride 3 ml 11/11/24 04:43 Sodium Chloride Rt Poonam 0.9% 3 Ml Nebu INH 12/11/24 04:42 PRN PRN SOLN Plan Mirella Grewal is a 74-year-old F with a PMH of CHF, coronary artery disease with multiple MIs s/p stents, COPD on 3 L home oxygen, ESRD on hemodialysis, Thursday, Thursday, , Thursday, and A-fib with pacemaker, who was brought in by EMS with a chief complaint of acute SOB. The patient was intubated and admitted to ICU for further management of acute hypoxic hypercapnic respiratory failure secondary to COPD exacerbation. Patient has once again been intubated but the issue of receiving consent for a cardiac catheterization to ameliorate the underlying cardiac issue remains elusive. From nephrology's standpoint, patient will be receiving HD w/ pRBC today. #Combined respiratory and metabolic acidosis #ESRD on HD (Thu/Thu/Thu/Thu) Admission ABG showed pH 7.14 and pCO2 71, elevated lactic acid 4.1 Admission creatinine 6.4 (baseline: possibly 4.8-4.9), BUN 39, eGFR 6 11/12/24: worsening kidney function and toxic buildup due to no HD yesterday, creatinine 7.9, BUN 61, K 6.8, phosphorus 7.8 11/12/24: received HD 11/13/24: Cr 4.8 from 7.9, BUN 42 from 61, K 5.6 from 6.8 (improved kidney function after 11/12 HD) 11/14/24: Cr 5.9 from 4.8, BUN 52 from 42, K 5.0 from 5.6, Hgb 9.5, Plt Count 106, ABG pH 7.46 from 7.42, phosphorus 7.4 from 5.8 11/15/24: Cr 4.8 from 5.9, BUN 27 from 52, K 4.3, BP soft 90s /40s 11/16/24: Cr 4.2 from 5.1, BUN 46 from 27, K 4.6, last BP at 12:14 was 94/44 11/17/24: Cr 3.9 from 5.1, BUN 30 from 46 11/18/24: Cr 4.7 from 4.4, BUN 34 from 36 Patient has a left-sided fistula and receives her HD on ///THU Treatment Plan -HD today w/ pRBCs -Strict I's & O's -Avoid nephrotoxic medications 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, requires vascular surgery follow up Fistula remains patent and thrill is palpable Treatment Plan -Follow-up with vascular surgery -Continue to monitor #Acute hypoxic respiratory failure - intubated #CAP #Possible CHF exacerbation, likely 2/2 volume overload in the setting of ESRD #Pleural Effusion Critically elevated BNP 2005 with elevated troponin I 0.046 CXR showed moderate congestive heart failure with prominent vascular congestion and perihilar basilar edema Chest CT showed mild heart failure with moderate enlargement of the cardiac contour with small bilateral pleural effusions 11/13 CXR showed bibasilar pneumonia with significant RLL consolidation 11/13 EKG showed a change from sinus rhythm to atrial fibrillation with intermittent pacemaker rhythm 11/14 troponin downtrended to 3.023 from 4.088 Treatment Plan -Continue management per primary care team #SVT #Recurrent Tachyarrythmia #Hx of A-fib, on Eliquis and s/p pacemaker Treatment Plan -Continue management per cardiology recommendations -Continue management per primary care team #Electrolyte abnormalities #Hypocalcemia, likely 2/2 ESRD status (resolving) #Mild hyponatremia #Hypochloremia Treatment Plan -Continue NG calcium carbonate BID per primary care team -Monitor electrolyte levels, correct as needed -Continue Veltassa to treat possible hyperkalemia -Continue sevelamer to treat possible hyperphosphatemia #Normocytic anemia, likely 2/2 ESRD status #Thrombocytopenia Admission Hgb 11.1 (MCV 96, RDW 63.4) 11/12/24: Hgb dropped to 10.0 -s/p Epoetin 10,000 U x1 11/14/24: Hgb 9.5, platelet count down to 106 from 134 11/16/24: Hgb 9.0 11/17/24: Hgb 7.9 Treatment Plan -Monitor H&H, transfuse if Hgb<7 #Other medical problems #Acute encephalopathy likely 2/2 CO2 narcolepsy in the setting of COPD exacerbation #Acute hypoxic hypercapnic respiratory failure likely 2/2 CHF exacerbation vs. COPD exacerbation vs. both #COPD exacerbation #Community-acquired pneumonia #Leukocytosis- downtrending #CAD s/p stents Treatment Plan -Continue management per primary care team Hospital Management: Disposition: HD today Diet: NPO Lines: Left IJ central line, peripheral lines DVT Prophylaxis: Eliquis 5 mg BID CODE STATUS: Full Code Thank you for allowing us to be part of the patient's care. I have examined the patient and conferred with the nephrology attending, Dr. Mishra, regarding them. Tim Pineda, PGY-1 Internal Medicine Attending Provider Attestation/Addendum Patient seen and examined with resident physician Dr. Pineda. Note reviewed, agree with findings and recommendations. Patient currently seen in ICU. On ventilator. Reintubated for acute hypoxic respiratory failure Patient with arrhythmias and ICD shocks. Pump seems to be a problem Patient currently seen on dialysis. Tolerating dialysis without any problems. Hemodialysis for 3 hours, 2K, ultrafiltration 2-3 L, Epogen 6000, no heparin ordered. Plan of care discussed with the dialysis nurse. Please see dialysis flowsheet for further details. 2 units of PRBC ordered with dialysis Critical care spent more than 42 minutes regarding plan of care and disease management. No POA identified. Spoke to ICU team, Dr. Merritt, bridge repair crew person
[2024-11-18] MEDS: fentaNYL 2,500 MCG/250 ML BAG 2,500 MCG/250 ML BAG 25 MCG IV ×2 (09:10→19:00)
--- NOTE | 2024-11-18 09:11 | PC.SS ---
SS update: d/c pending, patient remains intubated, on IV antibiotics, G Tube feedings.
--- NOTE | 2024-11-18 10:30 | PC.SS ---
SS follow up note; SS contacted patient's friend, Riddhi Leonard in regard to appointing decision maker, [phone], she informed SS that patient has no family and is estranged from her son and has not had any contact with him for years. Riddhi reported she could make medical decision maker for patient. SS has attempted multiple times to contact patient's friend, Jose, however SS has been unable to reach him.
[2024-11-18] MEDS: SEVELAMER CARBONATE 0.8 GM PACKET (NON-FORMULARY) NG ×3 (10:34→18:00)
[2024-11-18] MEDS: ASPIRIN 81 MG CHEW NG (10:35)
[2024-11-18] MEDS: FAMOTIDINE INJ 10 MG/ML VIAL 2 ML 20 MG IVP (10:35)
[2024-11-18] MEDS: AMIODARONE HCL 200 MG TABLET NG ×2 (10:35→21:33)
--- NOTE | 2024-11-18 13:00 | PC.SS ---
DANCE ENTERTAINER made APS due to unable to locate next of kin to make medical decisions. Report included that DANCE ENTERTAINER attempted to make contact with members listed on the patients chart, however no contact has been established due to no answer. The patient remains in the ICU and requires a designated individual to make medical decisions on their behalf. The patients chart lists a friend as point of contact but social media analyst have been unable to reach friend Jose Bose ph: [phone]. Demographic information was verified through another friend of the patient Pettymhoan Aisha . SS Patient has no family and is estranged from her son and has not had any contact with him for years. Book Binder has been unable to verify patient?s son name or contact information. DANCE ENTERTAINER submitted APS report via fax to [phone].
[2024-11-18 13:09] LABS: Hematocrit 30.7 % (36.0-46.0); Hemoglobin 10.3 g/dL (12.0-16.0)
[2024-11-18] MEDS: LACTULOSE SYRUP 20 GM/30 ML UDC 45 GM PO (13:20)
--- NOTE | 2024-11-18 16:01 | ESPR_ITS ---
Documentation for date of: 11/18/24 Subjective Subjective Interval history: The patient is a 74-year-old female with significant past medical history of CHF, coronary artery disease with multiple MIs s/p stents, COPD on 3 L home oxygen, ESRD on hemodialysis, Thursday, Thursday, , Thursday, A-fib with pacemaker, brought in by EMS with chief complaint of acute SOB. The patient called EMS due to SOB, and she was saturating on 80s at her home. She was given DuoNeb on the way to hospital, and when she presented to ED, her saturation was 84 on high flow CPAP. She was already altered, and was intubated. Further history were unobtainable, as patient was already intubated during my evaluation. In the ED her vitals were significant for a blood pressure of 200/76, pulse 79, RR 20, labs are significant for white count 13.5, RBC 3.88, hemoglobin 11.1, D- dimer 2630, ABG revealed pH of 7.14, pCO2 71, pO2 116, bicarb 24, sodium 135, potassium 4.6, BUN 39, creatinine 6.4, lactic acid 4.1, corrected calcium 7.7, magnesium 2.2, AST/ALT/ALP less than 10, less than 10/05/2027 respectively. Ammonia was 17, troponin 0.046, CRP less than 0.5, BNP 2006, lipid panel revealed LDL 116, lipase 68, TSH 6.61, free T4 0.84. UA revealed orange urine, 2+ protein, 2+ blood, leukocyte Estrace positive, RBC 502, WBC 1255, chest x-ray revealed right lower lobe pneumonia, EKG revealed old MO. The patient received methylprednisone 125 Mg IV x 1, bolus fluid 1 L at the rate 250 cc/h, cefixime 2 g IV x 1, and started on vancomycin. The patient was intubated and admitted to ICU for further management of acute hypoxic hypercapnic respiratory failure secondary to COPD exacerbation. 11/11/2024: Patient is sedated and on mechanical ventilator. Most of the history is taken from the chart review and from the nurse at the bedside. Patient supposedly lives alone and developed shortness of breath, for which she called the EMS. By the time EMS went her home she was severely short of breath for which she was given DuoNebs and was kept on CPAP following which she was brought to the hospital where she was given steroids, sedated and intubated. Later central line was placed. No acute overnight events. Vitals are stable and patient is on propofol and fentanyl drip without any vasopressor support. Started on methylprednisolone 60 Mg IV once daily, ceftriaxone and azithromycin. Repeat ABG after the intubation is within normal limits. Will continue mechanical ventilation for now and monitor the patient. Later in the evening, patient is found to be mildly hypotensive for which low-dose Levophed was started and patient was given a dose of midodrine 10 Mg through orogastric tube. 11/12/2024: Patient is seen and examined at bedside in the ICU. No acute overnight events. Sedated and on mechanical ventilator, VC/AC mode with tidal volume 380, PEEP 5, FiO2 30% and saturating around 95%. Vitals are stable and patient is mildly hypotensive, started on Levophed which was stopped around 7 AM this morning, maintain blood pressures only on minimal doses of Levophed 0.05 mcg/kg/min. Labs done this morning showed mild leukocytosis, sodium 131, potassium 5.5, BUN 61, creatinine 7.9, bicarb 19.2, phosphorus 7.8. ABG showed metabolic acidosis Patient missed her dialysis session yesterday which was started this morning and Levophed is restarted to support the blood pressure during dialysis. Tolerated dialysis well on 2 L of fluid is taken. Patient was changed from VC/AC mode to pressure support mode. Will repeat ABG tomorrow morning and if patient is hemodynamically stable, able to respond after weaning of the sedation, planning to wean her off the mechanical ventilator. 11/13/2024: Patient seen this morning, at a RASS of 0 able to follow commands well, interactive and trying to communicate. Initially plan was to extubate today. Later that morning around 9:40 am patient appeared anxious and went into SVT rate up to 180s with hypoxia in the 70s while on pressure support. Patient was switched back to AC/VC on 100% FiO2. Patient was given metoprolol tartrate 5 mg IV x1, adenosine 6 mg IV x1, furosemide 40 mg IV x1, diltiazem 10 mg IV x1, and midazolam 1 mg IV x1, after which patient had resolution of heart rate and rhythm. Patient was then placed on Precedex drip. Will keep patient sedated overnight and try for extubation tomorrow. Started Veltassa for hyperkalemia, follow up potassium levels. Patient will have dialysis tomorrow. Troponin was repeated in the afternoon which was elevated at 4.088 therefore Plavix loading dose was given 300 mg x1 followed by 75 mg qday and heparin drip was started after discussed with Dr. Escudero. 11/14/2024: Patient is seen and examined at bedside in the ICU. Initial plan was to extubate patient this morning but after decreasing the sedation, patient became more interactive and is trying to communicate with the hand gestures and trying to speak. Patient was kept on pressure support mode and she was tolerating it well. Later suddenly noted multiple episodes of SVT and VT. Patient was given 300 mg bolus of amiodarone and was started on amiodarone drip. Later no further episodes of arrhythmias were noted during the day. Patient was kept back on the VC/AC mode. Consulted assembly operator, Dr. Escudero who is following the patient, recommended that he will do cardiac cath on 11/16/2024. So we will plan to extubate patient once the cardiac cath is done as patient is going into arrhythmias whenever trying to wean her off the sedation and extubate. Patient is taking metoprolol 25 mg twice daily at home. Echocardiogram done on 11/13/2024 showed EF of 30%. So resumed metoprolol to tartrate 25 mg twice daily. Will continue telemetry monitoring 11/15/2024: Patient is seen and examined at bedside in the ICU. No acute overnight events. No further episodes of SVT and VT noted. Patient continued to be on the amiodarone drip and heparin drip. Pending cardiac cath tomorrow around 11:[address] Escudero. Noted to have mild respiratory alkalosis for which respiratory rate is decreased from 20-18. Labs done this morning showed thrombocytopenia, 97,000. As patient is on heparin drip and also noted to have downtrending platelet count since the start of heparin drip, will do workup for heparin- induced thrombocytopenia. Will keep patient on n.p.o. since midnight. Transition to oral amiodarone 200 mg twice daily based on Dr. Escudero's recommendations. Will stop heparin drip around 1 hour before the cardiac catheterization. Talked to her friend who is the point of contact who gave consent for the cardiac catheterization and also patient when she is awake she wrote down on the patient that she wants to undergo cardiac catheterization. Planning to extubate once cardiac catheterization is done if the patient is hemodynamically stable.Will continue to monitor platelet count and discontinue heparin drip of the platelet counts downtre 11/16/2024: Patient is seen and examined at bedside in the ICU. No acute overnight events. Patient is noted to be agitated overnight for which she was kept on high doses of fentanyl and Precedex. Otherwise patient is doing good and ABG done this morning showed mild respiratory acidosis. Patient was supposed to get cardiac cath today but the procedure is postponed for now. As patient is hemodynamically stable and is on minimal requirement of FiO2, planned to extubate. Patient was started on pressure support and titrated to wean her off sedation. Patient tolerated pressure support well and passed spontaneous breathing trial following which patient was extubated on 11/16/2024 around 10:20 AM. Patient is extubated to BiPAP. Later patient was noted to have multiple episodes of short lasting SVT and VT for which a dose of metoprolol 5 mg and Haldol, Seroquel is given as patient appears to be delirious and continuously got agitated saying that someone is trying to kill her. Patient was restarted on Precedex. Around 3 PM patient was started on the dialysis during which she needed vasopressor support for shock. ABG done after extubation is within normal limits. Patient was weaned off the BiPAP and kept on the oxy mask. Patient continued to develop SVT and bradycardia episodes for which patient was given amiodarone 150 mg bolus and started on drip. Senior Energy Market Coordinator, Dr. Escudero is following the patient and recommended to continue drip. ICD interrogation was done and showed multiple episodes of VT for which shock was delivered. Found to have Acinetobacter Iwofii on sputum culture for which patient was started on Unasyn 11/17/2024: Patient is seen and examined at bedside in the ICU. Overnight, patient was noted to have episodes of SVT and VT for which patient was given a dose of metoprolol 5 mg and in the view of agitation, patient also received 1 dose of olanzapine. At the time of examination in the morning, patient is able to answer some questions but still delirious and confused. Vitals are stable and patient is on OxyMask. Labs done this morning showed hemoglobin 7.9, platelets 104, sodium 133, potassium 3.6, BUN 30, creatinine 3.9. Patient was given a dose of 20 mill equivalents of IV potassium in view of continuous arrhythmias. Around 1:30 PM, patient was noted to have altered sensorium with difficulty breathing for which patient was kept on BiPAP despite which the saturations are low around 80s for which patient was intubated and kept on mechanical ventilator. A dose of labetalol 10 mg is given at the time in view of high blood pressures and suspected pulmonary edema. Will continue amiodarone, heparin drip. Repeat CBC, CMP, lactate and procalcitonin, ABG is ordered. 11/18/2024: Patient is seen and examined at the bedside in the ICU. Overnight, patient found to be agitated and was started on fentanyl drip. Vitals are stable and noted to have no episodes of SVT/VT. Vitals are stable. On physical examination, patient noted to have oozing from right upper extremity. Noted no bowel movements since the time of admission despite edema, milk of mag and senna. Labs done this morning showed hemoglobin of 6.7, likely acute blood loss from the right thigh hematoma. Patient got her regular HD today with 2 units of PRBC transfusion with 3 L of fluid removal. Senior Energy Market Coordinator, Dr. 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 Patient found to have episodes of VT in the cardiac Presser Hand for which patient was given 2 shocks following which converted to normal sinus rhythm. Heparin drip was stopped and patient was transferred back to the ICU. No further episodes of VT was noted. Planning to start lidocaine drip the patient continues to have recurrent persistent VT. Goals of care discussion are done with the point of contact, siria and explain her but patient's current condition and her prognosis. The the point of contact, Siria is willing to keep her on comfort measures as her medical conditions are addressed below with poor prognosis but she is concerned about the lability issues. will have a goals of care discussions again tomorrow with social worker assistant. Exam Vital Signs Temp Pulse Resp BP Pulse Ox O2 Del Method O2 Flow Rate 96.8 F 73 18 144/56 H 100 Mechanical Ventilation 2 11/18/24 12:51 11/18/24 14:15 11/18/24 12:51 11/18/24 14:15 11/18/24 12:51 11/18/24 08:01 11/18/24 12:51 FiO2 80 11/18/24 12:51 Narrative Exam General: Sedated and Mechanically ventilated. HEENT: Normocephalic, atraumatic, mucous membranes moist. Heart: regular rate and rhythm, no murmurs. Lungs: Clear to auscultation with no wheezing or crackles. Abdomen: Soft, nondistended, nontender, positive bowel sounds. ?No guarding or rebound tenderness. Neurologic: Sedated and mechanically ventilated. Extremities: No edema. Left AV fistula noted. 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 Right upper extremity swelling and oozing noted from that site Skin: No rash. ecchymotic patches noted on right arm and at the site of IV catheters Objective Labs 11/19/24 05:09 11/19/24 05:09 Labs: Laboratory Results - last 24 hr 11/17/24 11/17/24 11/18/24 16:45 17:19 04:30 WBC 6.2 RBC 2.29 L Hgb 6.7 L* Hct 20.3 L* MCV 89 MCH 29.3 MCHC 33.0 RDW Std Deviation 58.5 H Plt Count 94 L D Neut % (Auto) 70 Lymph % (Auto) 15 [place] % (Auto) 10 Eos % (Auto) 3 Baso % (Auto) 0 Neut # (Auto) 4.3 Lymph # (Auto) 1.0 Fre[place] # (Auto) 0.6 Eos # (Auto) 0.2 Baso # (Auto) 0.0 Immature Gran # (Auto) 0.09 H Absolute Nucleated RBC 0.00 Immature Gran % 2 H Nucleated RBC % 0 Smear Path Review Sent to Pathologist APTT 52.8 H D 52.6 H Puncture Site Right Brachial ABG pH 7.36 D ABG pCO2 47 D ABG pO2 154 H D ABG HCO3 27 H ABG O2 Saturation 100 H ABG Base Excess 1 FiO2 100 Sodium 130 L Potassium 4.2 D Chloride 91 L Carbon Dioxide 25.5 Anion Gap 14 BUN 34 H Creatinine 4.7 H* Estim Creat Clear Calc 10.0 L eGFR 9 L* BUN/Creatinine Ratio 7 L Glucose [address] Glu mg/dL Cancelled Hemoglobin A1c Cancelled Calculated Osmolality 269 L Calcium 8.4 Corrected Calcium 9.2 Phosphorus 6.2 H Magnesium 2.4 Albumin 3.0 L Blood Type Antibody Screen Crossmatch Blood Bank Wristband ID 11/18/24 11/18/24 11/18/24 05:00 06:36 12:54 WBC RBC Hgb 10.3 L D Hct 30.7 L D MCV MCH MCHC RDW Std Deviation Plt Count Neut % (Auto) Lymph % (Auto) Freestone % (Auto) Eos % (Auto) Baso % (Auto) Neut # (Auto) Lymph # (Auto) Fre[place] # (Auto) Eos # (Auto) Baso # (Auto) Immature Gran # (Auto) Absolute Nucleated RBC Immature Gran % Nucleated RBC % Smear Path Review APTT Puncture Site Right Brachial ABG pH 7.40 ABG pCO2 44 ABG pO2 203 H D ABG HCO3 27 H ABG O2 Saturation 101 H ABG Base Excess 2 FiO2 21 Sodium Potassium Chloride Carbon Dioxide Anion Gap BUN Creatinine Estim Creat Clear Calc eGFR BUN/Creatinine Ratio Glucose Estimated Ave Glu mg/dL Hemoglobin A1c Calculated Osmolality Calcium Corrected Calcium Phosphorus Magnesium Albumin Blood Type A Positive Antibody Screen NEGATIVE Crossmatch See Detail Blood Bank Wristband ID Yes ABG Interpretation ABG results: 11/11/24 11/11/24 11/12/24 04:01 07:38 04:55 ABG pH 7.14 L* 7.37 D 7.26 L D ABG pCO2 71 H* 42 D 44 ABG pO2 116 H 97 95 ABG HCO3 24 24 20 ABG O2 Saturation 97 99 H 98 ABG Base Excess -6 L -1 -7 L 11/12/24 11/13/24 11/14/24 07:35 04:13 04:35 ABG pH Cancelled 7.42 D 7.46 H ABG pCO2 Cancelled 48 40 ABG pO2 Cancelled 79 L 106 D ABG HCO3 Cancelled 31 H 29 H ABG O2 Saturation Cancelled 97 99 H ABG Base Excess Cancelled 6 H 4 H 11/15/24 11/16/24 11/16/24 04:58 05:20 11:55 ABG pH 7.47 H 7.29 L D 7.41 D ABG pCO2 39 51 H D 39 D ABG pO2 100 234 H D 160 H D ABG HCO3 29 H 24 24 ABG O2 Saturation 99 H 100 H 100 H ABG Base Excess 5 H -2 0 11/17/24 11/17/24 11/18/24 09:09 16:45 05:00 ABG pH 7.48 H 7.36 D 7.40 ABG pCO2 33 47 D 44 ABG pO2 132 H D 154 H D 203 H D ABG HCO3 25 27 H 27 H ABG O2 Saturation 101 H 100 H 101 H ABG Base Excess 1 1 2 Quality Measures Quality Measures none Advance care planning discussed with:: other Assessment & Plan Assessment Current Active Medications: Generic Name Dose Route Start Last Admin Trade Name Freq PRN Reason Stop Dose Admin Acetaminophen 650 mg 11/11/24 05:17 Acetaminophen 325 Mg Tablet PO 12/11/24 05:16 Q6H PRN Fever >100.5 Albuterol/Ipratropium 3 ml 11/11/24 07:00 11/18/24 10:26 Albuterol/Ipratropium (Duoneb) Rt Poonam 3 Ml Nebu INH 12/11/24 06:59 3 ml Q4HRRT RAYO Administration Amiodarone HCl 200 mg 11/18/24 09:00 11/18/24 10:35 Amiodarone Hcl 200 Mg Tablet NG 12/18/24 08:59 200 mg BID RAYO Administration Aspirin 81 mg 11/11/24 09:00 11/18/24 10:35 Aspirin 81 Mg Chew NG 12/11/24 08:59 81 mg QDAY RAYO Administration Atorvastatin Calcium 40 mg 11/11/24 21:00 11/17/24 21:09 Atorvastatin Calcium 20 Mg Tablet NG 12/11/24 20:59 40 mg HS RAYO Administration Bisacodyl 10 mg 11/16/24 10:09 11/16/24 10:44 Bisacodyl 10 Mg Supp [place] 12/16/24 10:08 10 mg QDAY PRN Administration CONSTIPATION Protocol Clopidogrel Bisulfate 75 mg 11/18/24 09:00 Clopidogrel Bisulfate 75 Mg Tablet NG 12/18/24 08:59 QDAY RAYO Dextrose 25 ml 11/12/24 06:24 11/17/24 12:19 Dextrose 50%-Water Inj 50 Ml Syringe IV 12/12/24 06:23 25 ml Q15MIN PRN Administration BG 50-70 responsive npo pt Dextrose 50 ml 11/12/24 06:24 11/17/24 18:08 Dextrose 50%-Water Inj 50 Ml Syringe IV 12/12/24 06:23 50 ml Q15MIN PRN Administration BG <50 OR BG <70 & pt unresponsive Famotidine 20 mg 11/11/24 09:00 11/18/24 10:35 Famotidine Inj 10 Mg/Ml Vial 2 Ml IVP 12/11/24 08:59 20 mg QDAY RAYO Administration Protocol Glucagon 1 mg 11/12/24 06:24 Glucagon Inj 1 Mg Vial IM Q15MIN PRN BG <70, and no IV access Norepinephrine/Dextrose 8 mg in 250 mls @ 6.476 mls/hr 11/11/24 16:05 11/18/24 12:00 Levophed In D5w 8mg/250ml IV 12/11/24 16:04 0.01 mcg/kg/min .Q24H PRN 1.295 mls/hr PER PROTOCOL Titration Protocol 0.05 MCG/KG/MIN Dexmedetomidine/Sodium Chloride 400 mcg in 100 mls @ 3.375 mls/hr 11/13/24 09:53 11/18/24 12:00 Precedex Ivpb IV 12/13/24 09:42 1.4 mcg/kg/hr .Q24H PRN 23.625 mls/hr Per PROTOCOL Titration Protocol 0.2 MCG/KG/HR Albumin Human 25 gm in 100 mls @ 100 mls/min 11/14/24 08:47 11/14/24 18:41 Albuminar-25 Ivpb IV Infused PRN PRN Infusion DIALYSIS Heparin Sodium/Dextrose 25,000 unit in 250 mls @ 8.52 mls/hr 11/16/24 10:45 11/18/24 09:47 Heparin In D5w Ivpb IV 11/30/24 10:44 13 units/kg/hr .Q24H RAYO 9.23 mls/hr Titration Protocol 12 UNITS/KG/HR Fentanyl Citrate 2,500 mcg in 250 mls @ 2.5 mls/hr 11/17/24 16:08 11/18/24 12:00 Sublimaze Inj 2,500 Mcg/250 Ml Bag IV 11/22/24 16:07 250 mcg/hr .Q24H PRN 25 mls/hr PER PROTOCOL Titration Protocol 25 MCG/HR Magnesium Hydroxide 30 ml 11/16/24 10:08 11/16/24 10:46 Milk Of Magnesia Susp 30 Ml Udc PO 12/16/24 10:07 30 ml QDAY PRN Administration CONSTIPATION Protocol Metoprolol Tartrate 25 mg 11/14/24 11:30 11/17/24 21:58 Metoprolol Tartrate 25 Mg Tablet NG 12/14/24 11:29 25 mg BID RAYO Administration Midodrine 10 mg 11/11/24 22:00 11/18/24 05:27 Midodrine 5 Mg Tablet NG 12/11/24 21:59 10 mg TID RAYO Administration Ondansetron HCl 4 mg 11/11/24 05:17 Ondansetron Inj 2 Mg/Ml Inj 2 Ml IVP 12/11/24 05:16 Q6H PRN NAUSEA OR VOMITING Protocol Pharmacy Consult 1 each 11/11/24 05:27 Pharmacy Renal Dose Adjustment 1 Ea XX 12/11/24 05:26 PRN PRN CONSULT Sacubitril/Valsartan 1 tab 11/18/24 11:15 Sacubitril 24 Mg/Valsartan 26 Mg Tablet PO 12/18/24 11:14 BID RAYO Sevelamer Carbonate 0.8 gm 11/14/24 08:00 11/18/24 12:19 Sevelamer Carbonate 0.8 Gm Packet (Non-Formulary) NG 12/14/24 07:59 0.8 gm TIDWM RAYO Administration Sodium Chloride 3 ml 11/11/24 04:43 Sodium Chloride Rt Poonam 0.9% 3 Ml Nebu INH 12/11/24 04:42 PRN PRN SOLN Plan The patient is a 74-year-old female with significant past medical history of CHF, coronary artery disease with multiple MIs s/p stents, COPD on 3 L home oxygen, ESRD on hemodialysis, Thursday, Thursday, , Thursday, A-fib with pacemaker, brought in by EMS with chief complaint of acute SOB. The patient was intubated and admitted to ICU for further management of acute hypoxic hypercapnic respiratory failure secondary to COPD exacerbation. Neuro: #Acute encephalopathy - Patient was noted to have encephalopathy due to CO2 narcosis at the time of admission, later CO2 narcosis resolved with mechanical ventilation - Patient was extubated as of 11/16/2024, but still appears to be altered and delirious, thinking that someone is trying to kill her, Likely due to hospital induced delirium - On 11/17/2024, around 1:30 PM, patient developed acute respiratory failure with worsening of the mental status for which patient was reintubated again and kept on mechanical ventilator Plan - Will continue Precedex drip - Added Fentanyl overnight as patient is agitated despite max dose of precedex drip CVS: # CAD s/p multiple stents # S/p ICD # HFrEF, EF 30% in 2024 - Though patient presented with acute SOB, was found to have BNP 1999, no JVD or peripheral edema noted - EKG showed paced rhythm with ST elevation in 1, aVL and reciprocal depressions in 2, 3 and aVF suggestive of old MO - ECHO on 11/16/2024 - Findings are consistent with ischemic cardiomyopathy severe LV dysfunction heavy mitral annulus calcification calcification mitral apparatus with moderate to severe mitral stenosis and mild mitral regurgitation. No evidence of significant pulmonary hypertension. Plan - Low-sodium diet - Fluid restriction to 1500 cc daily - Talked to assembly operator, Dr. Escudero about the EKG findings and he recommended that ST elevations are from old MO - Patient had history of NSTEMI in September, but rejected cardiac catheterization at that time, patient might be having ongoing ischemia due to which patient is having multiple episodes of SVT/VT - Planned to do cardiac catheterization on 11/16/2024 but not done at that time. - Cardiac catheterisation is done on 11/18/2024 and found to LMCA 80% occlusion with severe mitral valve calcification - Started on GDMT - Metoprolol 25mg twice daily and Entresto 24/26 twice daily #Episode of SVT/VT 11/13/2024 Patient was given adenosine 6 mg IV x1, metoprolol 5 mg IV x1, diltiazem 10 mg IV x1 with conversion On 11/15/2023, when trying to wean patient off the sedation and kept on pressure support mode, patient became more agitated and developed multiple episodes of SVT and VT Plan - Continuous telemetry - Keep sedated overnight - Started on metoprolol tartarate 25mg twice daily through OG tube - Patient is using amiodarone 200 mg twice daily at home, as patient developed recurrent episodes of SVT/VT, started on amiodarone drip on 11/14/2024, and transition to oral amiodarone but as of 11/16/2024, patient was noted to have multiple episodes of SVT, VT which was also confirmed by ICD interrogation and patient noted to receive shock. As the patient is continuously developing episodes of SVT/VT, patient was given amiodarone bolus followed by drip. # History of atrial fibrillation Patient never had documented episodes of atrial fibrillation but on pacemaker tracing, noted to have atrial fibrillation for which patient was started on amiodarone and Eliquis - Patient is using Eliquis at home - Currently on amiodarone 200mg twice daily through OG tube. # NSTEMI, likely type II Troponin is mildly elevated at the time of admission, 0.046 uptrended to 4.000, later downtrended Though EKG showed changes of ST elevation, they are likely from the old MO - Will continue telemetry monitoring - Loading dose Plavix given 300 mg x1 - Started on Plavix 75 mg qday and will continue 81mg qday - Following with Cardiology, Dr. Escudero Pulmonology: #Acute hypoxic hypercapnic respiratory failure 2/ #COPD exacerbation, resolved #Pulmonary edema Likely in the setting of worsening disease or superimposed bacterial infection and pulmonary edema in the setting of ESRD, Ongoing ischemic heart disease -Patient is a initially intubated on 11/11/2024 in view of acute hypoxic hypercapnic respiratory failure secondary to COPD exacerbation and pulmonary edema in the setting of CAD and ESRD - Patient is extubated on 11/16/2024 and is stable till 11/17/2024. Around 1:30 PM on 11/17/2024, patient developed sudden acute respiratory failure likely secondary due to pulmonary edema, ongoing CAD and patient was reintubated at that time Diagnostic test: - Tested negative for influenza A, B and COVID-19 - ABG at the time of admission showed pH 7.14, pCO2 71, PaO2 116, bicarb 24, oxygen saturation 97. - Chest x-ray showed cardiomegaly, infiltrates more on the right basilar area. - Labs showed WBC 13.5 - Tested negative for influenza A and B, COVID-19 - Blood cultures came back negative and 80 secretions came back positive for Acinetobacter Iwofii Treatment: - Patient is sedated, intubated and mechanically ventilated on 11/10/2024 - Received methylprednisolone 125 Mg IV x 1 in the ED - Started on methylprednisolone 60 Mg IV daily, completed 5 days on 11/14/2024 - Nebulizations every fourth of every, DuoNebs - Tried to wean the patient off ventilator on 11/13, 11/14 but noted to go to SVT and VT on both days. - Patient was extubated on 11/16/2024 and started on BiPAP and oxygen as needed and got reintubated on - Started on Unasyn as patient ET secretions culture tested positive for Acinetobacter Iwofii, stopped as of 11/18/2024 as patient completed 7 days course of antibiotics and no suspicion of active ongoing pneumonia GI: - No active problems Renal: #ESRD on HD -Patient is having 4 dialysis sessions per week At the time of admission, pH of 7.14, pCO2 71, lactic acid 4.1 Plan - Supervisor Garage Dr. Mishra consulted, appreciate recommendations - Received HD session on 11/12/2024, 11/14/2024, 11/16/2024, 11/18/2024 - Will need HD as per her routine schedule - Will avoid nephrotoxic medications and renally dose medications - Needing vasopressor during the dialysis Hematology: #Leukocytosis, resolved Reactive versus steroid versus infective Secondary to pneumonia and COPD exacerbation - Continue to treat underlying cause #Normocytic anemia DDx: Inflammatory anemia due to chronic kidney disease, versus nutritional deficiency versus malabsorption - Workup as an outpatient basis - Later patient found to be having low hemoglobin, 6.7 likely due to blood loss from Right thigh hematoma from the procedure - Transfused 2PRBC as of 11/18/2024 during HD # Thrombocytopenia, resolving - At the time of admission is 177 - Patient is started on heparin drip on 11/13/2024 in view of suspected ongoing acute ischemic heart disease. - Since then, noted to have downtrend in platelet count - Platelet count as of 11/15/2024 is 97,000 and on 11/16/2024 is within normal limits -->11/17, [id number] ---> 11/18, 94,000 - Suspected HIT in the setting of heparin and thrombocytopenia, - HIT panel is sent, came back negative Plan - Will continue to monitor platelet count. ID: #Suspected community-acquired pneumonia - Antibiotic therapy treatment as above - ET secretions culture showed Acinetobacter for which Unasyn was started Health maintenance: Dispo: ICU for further management of acute hypoxic hypercapnic respiratory failure secondary to COPD exacerbation, Pulmonary edema Diet: on OG tube feeds Lines: Left IJ central line, peripheral lines DVT prophylaxis: Heparin CODE STATUS: Full code Patient plan of care was discussed with the delivery recruiter, Dr. Merritt. Elmer Husain, PGY2 Attending Provider Attestation/Addendum Patient seen and examined with resident team. In brief is a 74-year-old female who has an extensive cardiac history who is currently intubated for respiratory failure. Somebody who can give consent was found and consented for cardiac cath. Patient underwent cath and no visible cause for her is ischemia was found, there were no lesions that could be intervened on. She has extensive calcification of her left ventricle and it is felt that the scarring is what is causing her current irritability. She has recurrent SVT and VT which she shocked by her ICD. Given that this is secondary to the extensive scarring and heavy calcifications in her left ventricle this is not a problem which can be intervened on. And goals of care discussion should be held however there are no immediate family members available and it is a close friend who was able to give consent for the cardiac cath. She remains intubated and on mechanical ventilation. Will continue to try and find representation for the patient. She is end-stage renal disease on hemodialysis and did receive 2 units of PRBCs today for significant anemia. Case discussed with nephrology and ICU Discussed with cardiology Labs, imaging and records reviewed Approximately 40 critical care minutes required for evaluation, exam, review, intervention, discussion formulation of plan of care for this critically ill patient at high risk for further ongoing decompensation.
--- NOTE | 2024-11-18 16:57 | PC.NURSE ---
1430- patient went to laboratory veterinarian at this time.
--- NOTE | 2024-11-18 17:04 | PC.NURSE ---
patient heart rate sustaining 170's. Md devine notified. have telephone order to shock at 200J. shock performed at 1630. patient converted. Hr 70's
--- NOTE | 2024-11-18 17:21 | PC.SS ---
MATTRESS WEAVER attempted to place APS report in file but patient file was not there, MATTRESS WEAVER gave Acetaldehyde Converter Operator Sandi report, Sandi stated she would file APS report in her chart.
--- NOTE | 2024-11-18 17:27 | PC.NURSE ---
patient transfered back to room [facility] with respiratory therapist celso. hand off report given to jessica linares. jessica linares and I asssessed site and dressing as well as pulse on left foot. site is soft, flat, and no signs of hematoma. dressing is clean dry and intact. leg at baseline. pulse on left foot weak but palpable, which is at baseline.
--- NOTE | 2024-11-18 17:41 | PD.RESPRO ---
Documentation for date of: 11/18/24 Subjective Subjective Interval history: Had cath today, no reversible ischemia, severe MAC Exam Vital Signs Temp Pulse Resp BP Pulse Ox O2 Del Method O2 Flow Rate 97.6 F 70 18 137/55 H 100 Mechanical Ventilation 2 11/18/24 16:21 11/18/24 17:00 11/18/24 17:00 11/18/24 17:00 11/18/24 17:00 11/18/24 17:00 11/18/24 12:51 FiO2 100 11/18/24 17:00 Objective Labs 11/18/24 12:54 11/18/24 04:30 Labs: Laboratory Results - last 24 hr 11/17/24 11/18/24 11/18/24 17:19 04:30 05:00 WBC 6.2 RBC 2.29 L Hgb 6.7 L* Hct 20.3 L* MCV 89 MCH 29.3 MCHC 33.0 RDW Std Deviation 58.5 H Plt Count 94 L D Neut % (Auto) 70 Lymph % (Auto) 15 Wise % (Auto) 10 Eos % (Auto) 3 Baso % (Auto) 0 Neut # (Auto) 4.3 Lymph # (Auto) 1.0 Wise # (Auto) 0.6 Eos # (Auto) 0.2 Baso # (Auto) 0.0 Immature Gran # (Auto) 0.09 H Absolute Nucleated RBC 0.00 Immature Gran % 2 H Nucleated RBC % 0 Smear Path Review Sent to Pathologist APTT 52.8 H D 52.6 H Puncture Site Right Brachial ABG pH 7.40 ABG pCO2 44 ABG pO2 203 H D ABG HCO3 27 H ABG O2 Saturation 101 H ABG Base Excess 2 FiO2 21 Sodium 130 L Potassium 4.2 D Chloride 91 L Carbon Dioxide 25.5 Anion Gap 14 BUN 34 H Creatinine 4.7 H* Estim Creat Clear Calc 10.0 L eGFR 9 L* BUN/Creatinine Ratio 7 L Glucose [address] Glu mg/dL Cancelled Hemoglobin A1c Cancelled Calculated Osmolality 269 L Calcium 8.4 Corrected Calcium 9.2 Phosphorus 6.2 H Magnesium 2.4 Albumin 3.0 L Blood Type Antibody Screen Crossmatch Blood Bank Wristband ID 11/18/24 11/18/24 06:36 12:54 WBC RBC Hgb 10.3 L D Hct 30.7 L D MCV MCH MCHC RDW Std Deviation Plt Count Neut % (Auto) Lymph % (Auto) Wise % (Auto) Eos % (Auto) Baso % (Auto) Neut # (Auto) Lymph # (Auto) Wise # (Auto) Eos # (Auto) Baso # (Auto) Immature Gran # (Auto) Absolute Nucleated RBC Immature Gran % Nucleated RBC % Smear Path Review APTT Puncture Site ABG pH ABG pCO2 ABG pO2 ABG HCO3 ABG O2 Saturation ABG Base Excess FiO2 Sodium Potassium Chloride Carbon Dioxide Anion Gap BUN Creatinine Estim Creat Clear Calc eGFR BUN/Creatinine Ratio Glucose Estimated Ave Glu mg/dL Hemoglobin A1c Calculated Osmolality Calcium Corrected Calcium Phosphorus Magnesium Albumin Blood Type A Positive Antibody Screen NEGATIVE Crossmatch See Detail Blood Bank Wristband ID Yes ABG Interpretation ABG results: 11/11/24 11/11/24 11/12/24 04:01 07:38 04:55 ABG pH 7.14 L* 7.37 D 7.26 L D ABG pCO2 71 H* 42 D 44 ABG pO2 116 H 97 95 ABG HCO3 24 24 20 ABG O2 Saturation 97 99 H 98 ABG Base Excess -6 L -1 -7 L 11/12/24 11/13/24 11/14/24 07:35 04:13 04:35 ABG pH Cancelled 7.42 D 7.46 H ABG pCO2 Cancelled 48 40 ABG pO2 Cancelled 79 L 106 D ABG HCO3 Cancelled 31 H 29 H ABG O2 Saturation Cancelled 97 99 H ABG Base Excess Cancelled 6 H 4 H 11/15/24 11/16/24 11/16/24 04:58 05:20 11:55 ABG pH 7.47 H 7.29 L D 7.41 D ABG pCO2 39 51 H D 39 D ABG pO2 100 234 H D 160 H D ABG HCO3 29 H 24 24 ABG O2 Saturation 99 H 100 H 100 H ABG Base Excess 5 H -2 0 11/17/24 11/17/24 11/18/24 09:09 16:45 05:00 ABG pH 7.48 H 7.36 D 7.40 ABG pCO2 33 47 D 44 ABG pO2 132 H D 154 H D 203 H D ABG HCO3 25 27 H 27 H ABG O2 Saturation 101 H 100 H 101 H ABG Base Excess 1 1 2 Quality Measures Quality Measures none Assessment & Plan Assessment Current Active Medications: Generic Name Dose Route Start Last Admin Trade Name Freq PRN Reason Stop Dose Admin Acetaminophen 650 mg 11/11/24 05:17 Acetaminophen 325 Mg Tablet PO 12/11/24 05:16 Q6H PRN Fever >100.5 Albuterol/Ipratropium 3 ml 11/11/24 07:00 11/18/24 10:26 Albuterol/Ipratropium (Duoneb) Rt Poonam 3 Ml Nebu INH 12/11/24 06:59 3 ml Q4HRRT RAYO Administration Amiodarone HCl 200 mg 11/18/24 09:00 11/18/24 10:35 Amiodarone Hcl 200 Mg Tablet NG 12/18/24 08:59 200 mg BID RAYO Administration Aspirin 81 mg 11/11/24 09:00 11/18/24 10:35 Aspirin 81 Mg Chew NG 12/11/24 08:59 81 mg QDAY RAYO Administration Atorvastatin Calcium 40 mg 11/11/24 21:00 11/17/24 21:09 Atorvastatin Calcium 20 Mg Tablet NG 12/11/24 20:59 40 mg HS RAYO Administration Bisacodyl 10 mg 11/16/24 10:09 11/16/24 10:44 Bisacodyl 10 Mg Supp DE 12/16/24 10:08 10 mg QDAY PRN Administration CONSTIPATION Protocol Clopidogrel Bisulfate 75 mg 11/18/24 09:00 Clopidogrel Bisulfate 75 Mg Tablet NG 12/18/24 08:59 QDAY RAYO Dextrose 25 ml 11/12/24 06:24 11/17/24 12:19 Dextrose 50%-Water Inj 50 Ml Syringe IV 12/12/24 06:23 25 ml Q15MIN PRN Administration BG 50-70 responsive npo pt Dextrose 50 ml 11/12/24 06:24 11/17/24 18:08 Dextrose 50%-Water Inj 50 Ml Syringe IV 12/12/24 06:23 50 ml Q15MIN PRN Administration BG <50 OR BG <70 & pt unresponsive Famotidine 20 mg 11/11/24 09:00 11/18/24 10:35 Famotidine Inj 10 Mg/Ml Vial 2 Ml IVP 12/11/24 08:59 20 mg QDAY RAYO Administration Protocol Glucagon 1 mg 11/12/24 06:24 Glucagon Inj 1 Mg Vial IM Q15MIN PRN BG <70, and no IV access Norepinephrine/Dextrose 8 mg in 250 mls @ 6.476 mls/hr 11/11/24 16:05 11/18/24 15:17 Levophed In D5w 8mg/250ml IV 12/11/24 16:04 0 mcg/kg/min .Q24H PRN 0 mls/hr PER PROTOCOL Titration Protocol 0.05 MCG/KG/MIN Dexmedetomidine/Sodium Chloride 400 mcg in 100 mls @ 3.375 mls/hr 11/13/24 09:53 11/18/24 12:00 Precedex Ivpb IV 12/13/24 09:42 1.4 mcg/kg/hr .Q24H PRN 23.625 mls/hr Per PROTOCOL Titration Protocol 0.2 MCG/KG/HR Albumin Human 25 gm in 100 mls @ 100 mls/min 11/14/24 08:47 11/14/24 18:41 Albuminar-25 Ivpb IV Infused PRN PRN Infusion DIALYSIS Fentanyl Citrate 2,500 mcg in 250 mls @ 2.5 mls/hr 11/17/24 16:08 11/18/24 16:31 Sublimaze Inj 2,500 Mcg/250 Ml Bag IV 11/22/24 16:07 250 mcg/hr .Q24H PRN 25 mls/hr PER PROTOCOL Titration Protocol 25 MCG/HR Magnesium Hydroxide 30 ml 11/16/24 10:08 11/16/24 10:46 Milk Of Magnesia Susp 30 Ml Udc PO 12/16/24 10:07 30 ml QDAY PRN Administration CONSTIPATION Protocol Metoprolol Tartrate 25 mg 11/14/24 11:30 11/17/24 21:58 Metoprolol Tartrate 25 Mg Tablet NG 12/14/24 11:29 25 mg BID RAYO Administration Midodrine 10 mg 11/11/24 22:00 11/18/24 05:27 Midodrine 5 Mg Tablet NG 12/11/24 21:59 10 mg TID RAYO Administration Ondansetron HCl 4 mg 11/11/24 05:17 Ondansetron Inj 2 Mg/Ml Inj 2 Ml IVP 12/11/24 05:16 Q6H PRN NAUSEA OR VOMITING Protocol Pharmacy Consult 1 each 11/11/24 05:27 Pharmacy Renal Dose Adjustment 1 Ea XX 12/11/24 05:26 PRN PRN CONSULT Sacubitril/Valsartan 1 tab 11/18/24 11:15 Sacubitril 24 Mg/Valsartan 26 Mg Tablet PO 12/18/24 11:14 BID RAYO Sevelamer Carbonate 0.8 gm 11/14/24 08:00 11/18/24 12:19 Sevelamer Carbonate 0.8 Gm Packet (Non-Formulary) NG 12/14/24 07:59 0.8 gm TIDWM RAYO Administration Sodium Chloride 3 ml 11/11/24 04:43 Sodium Chloride Rt Poonam 0.9% 3 Ml Nebu INH 12/11/24 04:42 PRN PRN SOLN
[2024-11-18] MEDS: EPOETIN ALFA-EPBX INJ 10,000 UNIT/ML VIAL (ESRD) 10000 UNIT SC (17:49)
[2024-11-18] MEDS: DEXTROSE 50%-WATER INJ 50 ML SYRINGE IV (18:50)
[2024-11-18] MEDS: ATORVASTATIN CALCIUM 20 MG TABLET 40 MG NG (20:02)
[2024-11-18] MEDS: PROPOFOL 1,000 MG IVPB 1,000 MG/100 ML VIAL 2.13 MG IV (20:15)
[2024-11-18] MEDS: fentaNYL 2,500 MCG/250 ML BAG 2,500 MCG/250 ML BAG 30 MCG IV (20:20)
[2024-11-18] MEDS: METOPROLOL TARTRATE 25 MG TABLET NG (21:33)
[2024-11-19] VITALS (111 sets, daily range): BP systolic 69–242; BP diastolic 35–138; PULSE 68–173; RESP 7–20; TEMP 36–36.6; O2SAT 93–100
[2024-11-19] MEDS: DEXMEDETOMIDINE 400 MCG IVPB 400 MCG/100 ML BAG 20.25 MCG IV (00:40)
[2024-11-19] MEDS: METOPROLOL TARTRATE INJ 1 MG/ML AMP 5 ML 2.5 MG IVP (02:23)
[2024-11-19] MEDS: ALBUTEROL/IPRATROPIUM (Duoneb) RT SOL 3 ML NEBU INH ×6 (03:08→22:02)
--- NOTE | 2024-11-19 04:15 | ESOP_ITS ---
RE: REILLY GRADY : 1950 DATE OF OPERATION: 11/18/2024 PROCEDURES PERFORMED: 1. Emergency diagnostic left heart catheterization, selective coronary angiogram, and left ventricular angiogram (CPT 45042). 2. Conscious sedation for 30 minute duration. 3. Ultrasound guidance access, left femoral artery. DIAGNOSES: Coronary artery disease, acute myocardial infarction, acute respiratory failure, hypoxic respiratory failure, flash pulmonary edema, persistent ST segment elevation _. HISTORY AND INDICATIONS: This is a 74-year-old lady with history of multiple coronary arteries, mainly right coronary, previous myocardial infarction, presented to the hospital with repeat hospitalizations within 2 months of acute hypoxic respiratory failure and flash pulmonary edema. She has history of end-stage renal disease as well. She has been having recurrent ventricular tachycardia requiring multiple defibrillations and cardioversions. She has been having ischemia causing flash pulmonary edema. The patient did not have any family and was unable to make decisions. A friend did agree that the patient should have it as per her wishes. Also, attending physicians including myself felt that we should find any reversible causes that could help her come through the respiratory failure episodes and ischemic etiology for arrhythmias. DESCRIPTION OF PROCEDURE: The patient was brought to the cardiac catheterization laboratory. She was sedated with 2 mg of Versed alternating with fentanyl drip and intermittent mechanical ventilation. Left femoral approach was taken. Left femoral artery was cannulated with micropuncture technique. Ultrasound guidance was used and a 5-Romanian sheath was introduced. Selective right coronary angiogram performed by FR4 diagnostic catheter. Difficult to navigate extensively. The entire aorta is calcified, basically look like an eggshell from the iliacs all the way to the aortic root and this is the heavy mitral annulus calcification and there is calcification of the inferior wall apex with extensive aneurysmal segment with heavy calcification, akinetic segment, and dyskinesia of the apex. The patient's right coronary angiogram was performed. Subsequently, left coronary angiogram was performed by FL4 diagnostic catheter. Left heart catheterization was performed by FL4 diagnostic catheter. LV angiogram was performed. Pullback pressure measured. Cardiac catheterization showed the following findings. Hemodynamics: Left ventricular pressure was 130 systolic and 2 diastolic, end- diastolic pressure 18 mmHg, aortic pressure 120/60, no gradient across the aortic valve. 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 Moderate to severe LV dysfunction with ejection fraction of approximately 30%. Coronary angiogram showed right coronary artery is heavily calcified. Evidence of multiple stents patent. There is no significant stenosis. The PDA and PL branches are normal. The right coronary artery essentially supplying the infarcted myocardium and aneurysmal dilation. Left coronary system: The left main coronary artery showed evidence of heavily calcified segments in the proximal mid segment. RCA of the left main coronary artery showed evidence of 80% stenosis. The diameter is only about 2-2.5 mm at the ostium, narrowed to 2 mm, and the rest of the left main coronary artery was 6 mm in diameter. The LAD showed mild stenosis with heavy calcification. The left circumflex artery is nondominant. SUMMARY OF FINDINGS AND SUGGESTIONS: 1. Extensive heavy calcification and ossification of the entire aorta, axillary aorta and heavy mitral annulus calcification and aortic valve calcification with no aortic stenosis. 2. Widely patent right coronary artery with persistent ST-segment elevation due to old inferior wall infarction with calcified inferior wall and apex visibly seen on the fluoroscopy and angiogram. 3. Severe 80% stenosis of the left main coronary artery ostium involving 80% stenosis, possibly causing flash pulmonary edema with heavy calcification with widely patent distal vessels. 4. Severe LV dysfunction, ejection fraction 30%. Of note, the patient did have ventricular tachycardia during the cardiac catheterization with hemodynamic instability, had to cardiovert the patient with 200 joules of energy, subsequently back to sinus rhythm and hemodynamically stable. Iliofemoral angiogram showed heavily calcified and severely stenosed common femoral artery with 70% narrowing and entire iliac vessel was heavily calcified. Manual compression was applied and hemostasis was secured. FINAL SUMMARY: 1. Critical, heavily calcified aorta and calcinosis of the entire vascular system with calcification of the axillary aorta. 2. Heavy mitral calcification. 3. Severe LV dysfunction. 4. Severe left main ostial stenosis, not suitable for angioplasty or stent placement even Impella, which cannot be performed with heavily calcified aorta. Not a candidate for bypass surgery. 5. Heavily calcified severe stenosis of the common femoral artery on the left side. RECOMMENDATIONS: The patient is not a good candidate for revascularization either by PCI or by bypass surgery because of various factors, especially heavily calcified vessels and aorta, probably high risk for any bypass surgery. The aorta cannot be cannulated for CABG. The patient has heavily calcified entire aorta, even difficult to navigate a guidewire and possible to do Impella left ventricular assist device in order to perform left main stent placement. Considering the end-stage renal disease, multiple hospitalizations for chronic kidney disease and renal failure and heavily calcified internal aorta and all the great vessels and structures, patient is not a candidate for intervention and medical management is considered. The patient is not doing well. Recurrent ventricular dysrhythmia due to scar-based VT and ventricular fibrillation requiring multiple shocks. At this point, decision made to withdraw her care and comfort measures are appropriate. The patient is not able to make decisions. I believe it is prudent and humane to keep this patient on comfort measures only and stop letting or getting multiple shocks from VT/VF, which is due to left main disease and extensive scarring of the inferior wall. Hence, I am recommending that we proceed with comfort measures either by ethics committee or multiple physicians signing that this is the appropriate way to manage this patient, instead of continuing this care of keeping her on a ventilator and letting her have multiple shocks despite having maximum loading dose of amiodarone. She is not expected to survive this episode whatsoever since we cannot take care of the underlying problem, which is severe left main disease as well as extensive inferior wall scarring and possible patent right coronary artery. Cause for persistent ST-segment elevation on monitor is due to inferior wall infarction with inferior apical chronic infarction causing ST elevation, which is not unusual to be persistent. I will discuss with team and intensivists and multiple physicians to agree on this and possibly with a friend and whoever is concerned with the family members to make her comfort measures instead of continuing the ventilatory support and all these aggressive measures, which are futile attempts to keep her alive. DT: 00:01:52 TT: 04:05:00 Ref: [id number] - TID: [id number] MTD[place]
[2024-11-19 04:36] LABS: Base Excess 3 (-3-3); HCO3 27 mEq/L (20-26); Inspired Oxygen, FIO2 21 %; O2 Saturation 101 % (91-98); PCO2 43 mmHg (32.0-48.0); PO2 205 mmHg (83-108); pH, Arterial 7.41 (7.35-7.45)
[2024-11-19 04:37] LABS: Allen Test Performed/OK; Puncture Site Right Brachial
[2024-11-19] MEDS: fentaNYL 2,500 MCG/250 ML BAG 2,500 MCG/250 ML BAG 20 MCG IV (04:52)
--- NOTE | 2024-11-19 05:00 | XR_ITS ---
Examination: AP chest single view Technique one AP portable semiupright chest single view Date and time: November 19, 2024, 0733 hrs., Comparison November 18, 2024 Indications: Hypoxic respiratory failure. Findings: Moderate chronic heart failure. Moderate enlargement cardiac contour with prominent vascular congestion and perihilar edema Consider superimposed pneumonia at the lung bases Cardiac leads orogastric tube and endotracheal tube satisfactory position as well as left internal jugular central line Impression: Moderate heart failure Superimposed pneumonia at the lung bases
[2024-11-19 05:55] LABS: Basophils # (Auto) 0.0 Thou/mm3 (0.0-0.2); Basophils % (Auto) 0 % (0-2.5); Eosinophils # (Auto) 0.3 Thou/mm3 (0.0-0.5); Eosinophils % (Auto) 3 % (0-10); Hematocrit 29.9 % (36.0-46.0); Hemoglobin 10.0 g/dL (12.0-16.0); Immature Granulocytes Auto 0.12 Thou/mm3 (0.00-0.00); Lymphocytes # (Auto) 0.6 Thou/mm3 (1.0-4.8); Lymphocytes % (Auto) 5 % (10-50); Mean Corpuscular HGB Conc 33.4 g/dl (31.0-37.0); Mean Corpuscular Hemoglobin 29.4 pg (25.0-35.0); Mean Corpuscular Volume 88 fL (80-100); Monocytes # (Auto) 1.3 Thou/mm3 (0.0-0.8); Monocytes % (Auto) 12 % (0-12); Neutrophils # (Auto) 8.7 Thou/mm3 (1.8-7.7); Neutrophils % (Auto) 79 % (37-80); Nucleated Red Blood Cell # 0.00 Thou/mm3 (0.00-0.00); Nucleated Red Blood Cell % 0 /100 WBC (0); Platelet Count 123 Thou/mm3 (140-440); RDW Standard Deviation 55.3 fL (36.4-46.3); Red Blood Count 3.40 Miln/mm3 (4.00-5.20); White Blood Count 11.0 Thou/mm3 (3.6-11.0)
[2024-11-19] MEDS: HEPARIN SOD INJ 5000 UNIT/ML VIAL SC ×3 (06:13→21:26)
[2024-11-19] MEDS: MIDODRINE 5 MG TABLET 10 MG NG ×3 (06:13→21:25)
[2024-11-19 06:22] LABS: Partial Thromboplastin Time 29.2 Seconds (22.0-36.0)
[2024-11-19 06:36] LABS: Albumin, Serum 3.0 gm/dL (3.4-4.8); Anion Gap 13 (7-16); BUN/Creatinine Ratio 7 Ratio (12-20); Blood Urea Nitrogen 25 mg/dL (9-23); Calcium 8.7 mg/dL (8.3-10.6); Calcium (Corrected) 9.5 mg/dL (8.5-10.1); Carbon Dioxide 27.1 mMol/L (20.0-31.0); Chloride 96 mMol/L (98-107); Creatinine (Component) 3.6 mg/dL (0.6-1.3); Estimated Creatinine Clearance 13.0 mL/min (>60); Glucose 132 mg/dL (74-106); Magnesium 1.8 mg/dL (1.6-2.6); Osmolality,Calculated 278 (275-295); Phosphorous 5.2 mg/dL (2.4-5.1); Potassium 4.0 mMol/L (3.4-5.1); Sodium 136 mMol/L (136-145); eGFR 13 See Note
[2024-11-19] MEDS: DEXMEDETOMIDINE 400 MCG IVPB 400 MCG/100 ML BAG 16.875 MCG IV (08:12)
[2024-11-19] MEDS: METOPROLOL TARTRATE 25 MG TABLET NG ×2 (08:41→20:14)
[2024-11-19] MEDS: SEVELAMER CARBONATE 0.8 GM PACKET (NON-FORMULARY) NG ×3 (08:41→18:35)
[2024-11-19] MEDS: CLOPIDOGREL BISULFATE 75 MG TABLET NG (08:41)
[2024-11-19] MEDS: AMIODARONE HCL 200 MG TABLET NG ×2 (08:42→20:14)
[2024-11-19] MEDS: FAMOTIDINE INJ 10 MG/ML VIAL 2 ML 20 MG IVP (08:43)
[2024-11-19] MEDS: ASPIRIN 81 MG CHEW NG (08:43)
--- NOTE | 2024-11-19 11:25 | PD.RESPRO ---
Documentation for date of: 11/19/24 Subjective Subjective Interval history: Reason for consult: ESRD, acute respiratory failure, need for dialysis History of present illness: Mirella Grewal is a 74-year-old F with a PMH of CHF, coronary artery disease with multiple MIs s/p stents, COPD on 3 L home oxygen, ESRD on hemodialysis, Thursday, Thursday, , Thursday, and A-fib with pacemaker, who was brought in by EMS with a chief complaint of acute SOB. Per Internal Medicine team note, the patient called EMS due to SOB, and was saturating around 80% at home. She was given DuoNebs on the way to hospital and, when she presented to the ED, was saturating at 84% on high-flow CPAP. At this point, she was already altered, and was intubated. Internal Medicine team could not obtain further history due to patient already being intubated during their evaluation. Of note, patient has multiple prior hospitalizations for similar presentations of acute hypoxic respiratory failure including in November 2023 and September 2023. In the ED, vitals showed: BP 200/76 HR 79 RR 20 Temp 98.6 SpO2 84% on high flow CPAP, ED Course: CBC showed high WBC 13.5, and low Hgb 11.1 (MCV 96, RDW 63.4). Coagulation panel showed critically elevated D-dimer 2630 but was otherwise within normal limits. ABG showed normal pH 7.37, normal pCO2 42, normal PO2 97, and normal HCO3 24. CMP showed high BUN 39, critically elevated creatinine 6.4, critically low EGFR 6, high lactic acid 4.1, high blood glucose 184, low corrected calcium 7.7, critically elevated troponin I 0.046, critically elevated BNP 2006, high TSH 6.61, and low free T4 0.84. UA showed turbid orange urine with a basic pH of 8.0. It also showed 2+ urine protein, 2+ urine blood, high urine RBC 502, high urine WBC 1255, high urine squamous epithelial cells 29, but no urine bacteria. UDS was negative. Rapid RSV was negative. Imaging: Chest x-ray showed moderate congestive heart failure with prominent vascular congestion and perihilar basilar edema. Head CT was unremarkable. Chest CT showed bilateral thyroid nodules, mild heart failure with moderate enlargement of the cardiac contour, bibasilar pneumonia, numerous bilateral positioned metastatic pulmonary nodules, small bilateral pleural effusions, and cholelithiasis. EKG showed old TN. In the ED, patient was received methylprednisone 125 Mg IV x 1, bolus fluid 1 L at the rate 250 cc/h, cefixime 2 g IV x 1, and was started on vancomycin. The patient was intubated and admitted to ICU for further management of acute hypoxic hypercapnic respiratory failure secondary to COPD exacerbation. We, the nephrology team, were consulted for the patient's combined respiratory and metabolic acidosis and need for urgent hemodialysis due to ESRD status. Cardiology is also following. Interval History 11/16/2024: No overnight events. Patient seen and examined at bedside; she continues to be intubated and is unable to comment on her well-being or endorse new complaints or symptoms. Notable labs today include Hgb 9.0, APTT 66.7, blood pH 7.29, Na 127, Cl 88, BUN bump to 46 from 27, creatinine bump to 5.1 from 4.2, eGFR drop to 8 from 11, and phosphorus bump to 8.0 from 6.5. 11/16 CXR showed moderate heart failure with findings suggestive of superimposed pneumonia at the lung bases. Her abdomen also appears more distended today. Patient is having cardiac catheter performed by Dr. Escudero at 11:30 AM today with plans to extubate once the procedure is complete and patient is hemodynamically stable. From a nephrology standpoint, patient will be receiving HD today. 11/17/2024: No overnight events. Patient seen and examined at bedside; she is no longer intubated (extubated yesterday). Patient was awake and attempted to communicate with this investment underwriter but her voice was very quiet, hoarse, and low so it was difficult to understand her. She seemed to want soap for her hand but this investment underwriter was unable to tell for certain. Notable labs today include: Hgb 7.9, platelet count 104, APTT drop to 67.8 from 98.4, blood pH bump to 7.48 from 7.41, Na bump to 133 from 127, BUN drop to 30 from 46, creatinine drop to 3.9 from 5.1, eGFR bump to 12 from 8, and phosphorus drop to 5.7 from 8.0. Patient was scheduled for cardiac catheterization yesterday for her ischemic heart disease thought to be causing her recurrent SVT and VT (triggering ICD shocks) but this was canceled by cardiology. From nephrology's standpoint, we will hold off on hemodialysis for today. 11/18/2024: No overnight events. Patient seen and examined at bedside; she has been intubated once again due to agonal breathing and desaturations noted yesterday. Per cardiology, she continues to have recurrent episodes of V-tach and V-fib and the overall prognosis is poor. She also remains unable to provide consent for cardiac catheterization due to her incapacitation and lack of a living relative to provide consent on her behalf. A cardiac catheterization will be attempted if she becomes more stable and her pulmonary edema improves. Notable labs today include: Hgb 6.7, APTT 52.6, Na 130, BUN drop to 34 from 36, creatinine bump to 4.7 from 4.4, and phosphorus 6.2. Repeat CXR today shows [id number] heart failure, bibasilar pneumonia and/or pulmonary edema, and [id number] bilateral pleural effusions. From nephrology's standpoint, patient will be receiving HD w/ pRBC today. 11/19/2024: No overnight events. Patient seen and examined at bedside; they remain intubated today. Notable labs today include: Hemoglobin 10.0, platelet count 123, APTT drop to 29.2 from 52.6, BUN drop to 25 from 34, creatinine drop to 3.6 from 4.7, and phosphorus drop to 5.2 from 6.2. Consent for cardiac catheterization procedure was finally obtained from patient's close friend, and cardiac catheterization was performed by Dr. Escudero yesterday. After the procedure was completed, cardiology determined that there was no intervention they could do that could significantly ameliorate the patient's current critical condition. Cardiology currently recommends pure medical management and pursuit of comfort measures. From nephrology's standpoint, patient will be taking a break from hemodialysis today. Exam Vital Signs Temp Pulse Resp BP Pulse Ox O2 Del Method O2 Flow Rate 96.8 F 70 18 132/54 H 100 Mechanical Ventilation 2 11/19/24 08:00 11/19/24 10:24 11/19/24 10:24 11/19/24 10:22 11/19/24 10:24 11/19/24 08:00 11/18/24 12:51 FiO2 40 11/19/24 10:24 Narrative Exam General: Intubated. Unable to assess A&O status due to patient's inability to speak, no acute distress. Skin: Some skin break down on LUE wrist fistula. Warm, dry. Head: Normocephalic, atraumatic. Eyes: EOMI, anicteric. Cardiovascular: Regular rate and rhythm, no murmur, no JVD or carotid bruits. +S1/S2. Respiratory: Labored breathing with hoarse rhonchi bilaterally. Decreased breath sounds at the base. No crackles, no wheezing. No accessory muscle use. Gastrointestinal: Abdomen appears somewhat distended. Soft, nontender, no palpable masses. Extremities: Right hand and forearm appears bruised and swollen with gauze wrapped around it. Smaller area of bruising noted on left hand dorsum. RUE hand edema> LUE edema. Cool to touch. 2+ dorsal pedalis, UE in restraints. Neuro: Deferred. Objective Labs 11/19/24 05:09 11/19/24 05:09 Labs: Laboratory Results - last 24 hr 11/18/24 11/18/24 11/19/24 06:36 12:54 04:14 WBC RBC Hgb 10.3 L D Hct 30.7 L D MCV MCH MCHC RDW Std Deviation Plt Count Neut % (Auto) Lymph % (Auto) [place] % (Auto) Eos % (Auto) Baso % (Auto) Neut # (Auto) Lymph # (Auto) [place] # (Auto) Eos # (Auto) Baso # (Auto) Immature Gran # (Auto) Absolute Nucleated RBC Immature Gran % Nucleated RBC % APTT Puncture Site Right Brachial ABG pH 7.41 ABG pCO2 43 ABG pO2 205 H ABG HCO3 27 H ABG O2 Saturation 101 H ABG Base Excess 3 FiO2 21 Sodium Potassium Chloride Carbon Dioxide Anion Gap BUN Creatinine Estim Creat Clear Calc eGFR BUN/Creatinine Ratio Glucose Calculated Osmolality Calcium Corrected Calcium Phosphorus Magnesium Albumin Crossmatch See Detail 11/19/24 05:09 WBC 11.0 D RBC 3.40 L Hgb 10.0 L Hct 29.9 L MCV 88 MCH 29.4 MCHC 33.4 RDW Std Deviation 55.3 H Plt Count 123 L D Neut % (Auto) 79 Lymph % (Auto) 5 L [place] % (Auto) 12 Eos % (Auto) 3 Baso % (Auto) 0 Neut # (Auto) 8.7 H Lymph # (Auto) 0.6 L [place] # (Auto) 1.3 H Eos # (Auto) 0.3 Baso # (Auto) 0.0 Immature Gran # (Auto) 0.12 H Absolute Nucleated RBC 0.00 Immature Gran % 1 H Nucleated RBC % 0 APTT 29.2 D Puncture Site ABG pH ABG pCO2 ABG pO2 ABG HCO3 ABG O2 Saturation ABG Base Excess FiO2 Sodium 136 Potassium 4.0 Chloride 96 L Carbon Dioxide 27.1 Anion Gap 13 BUN 25 H Creatinine 3.6 H D Estim Creat Clear Calc 13.0 L eGFR 13 L* BUN/Creatinine Ratio 7 L Glucose 132 H Calculated Osmolality 278 Calcium 8.7 Corrected Calcium 9.5 Phosphorus 5.2 H Magnesium 1.8 Albumin 3.0 L Crossmatch ABG Interpretation ABG results: 11/11/24 11/11/24 11/12/24 04:01 07:38 04:55 ABG pH 7.14 L* 7.37 D 7.26 L D ABG pCO2 71 H* 42 D 44 ABG pO2 116 H 97 95 ABG HCO3 24 24 20 ABG O2 Saturation 97 99 H 98 ABG Base Excess -6 L -1 -7 L 11/12/24 11/13/24 11/14/24 07:35 04:13 04:35 ABG pH Cancelled 7.42 D 7.46 H ABG pCO2 Cancelled 48 40 ABG pO2 Cancelled 79 L 106 D ABG HCO3 Cancelled 31 H 29 H ABG O2 Saturation Cancelled 97 99 H ABG Base Excess Cancelled 6 H 4 H 11/15/24 11/16/24 11/16/24 04:58 05:20 11:55 ABG pH 7.47 H 7.29 L D 7.41 D ABG pCO2 39 51 H D 39 D ABG pO2 100 234 H D 160 H D ABG HCO3 29 H 24 24 ABG O2 Saturation 99 H 100 H 100 H ABG Base Excess 5 H -2 0 11/17/24 11/17/24 11/18/24 09:09 16:45 05:00 ABG pH 7.48 H 7.36 D 7.40 ABG pCO2 33 47 D 44 ABG pO2 132 H D 154 H D 203 H D ABG HCO3 25 27 H 27 H ABG O2 Saturation 101 H 100 H 101 H ABG Base Excess 1 1 2 11/19/24 04:14 ABG pH 7.41 ABG pCO2 43 ABG pO2 205 H ABG HCO3 27 H ABG O2 Saturation 101 H ABG Base Excess 3 Quality Measures Quality Measures none Advance care planning discussed with:: other (close friend) Assessment & Plan Assessment Current Active Medications: Generic Name Dose Route Start Last Admin Trade Name Freq PRN Reason Stop Dose Admin Acetaminophen 650 mg 11/11/24 05:17 Acetaminophen 325 Mg Tablet PO 12/11/24 05:16 Q6H PRN Fever >100.5 Albuterol/Ipratropium 3 ml 11/11/24 07:00 11/19/24 10:21 Albuterol/Ipratropium (Duoneb) Rt Poonam 3 Ml Nebu INH 12/11/24 06:59 3 ml Q4HRRT RAYO Administration Amiodarone HCl 200 mg 11/18/24 09:00 11/19/24 08:42 Amiodarone Hcl 200 Mg Tablet NG 12/18/24 08:59 200 mg BID RAYO Administration Aspirin 81 mg 11/11/24 09:00 11/19/24 08:43 Aspirin 81 Mg Chew NG 12/11/24 08:59 81 mg QDAY RAYO Administration Atorvastatin Calcium 40 mg 11/11/24 21:00 11/18/24 20:02 Atorvastatin Calcium 20 Mg Tablet NG 12/11/24 20:59 40 mg HS RAYO Administration Bisacodyl 10 mg 11/16/24 10:09 11/16/24 10:44 Bisacodyl 10 Mg Supp ID 12/16/24 10:08 10 mg QDAY PRN Administration CONSTIPATION Protocol Clopidogrel Bisulfate 75 mg 11/18/24 09:00 11/19/24 08:41 Clopidogrel Bisulfate 75 Mg Tablet NG 12/18/24 08:59 75 mg QDAY RAYO Administration Dextrose 25 ml 11/12/24 06:24 11/17/24 12:19 Dextrose 50%-Water Inj 50 Ml Syringe IV 12/12/24 06:23 25 ml Q15MIN PRN Administration BG 50-70 responsive npo pt Dextrose 50 ml 11/12/24 06:24 11/18/24 18:50 Dextrose 50%-Water Inj 50 Ml Syringe IV 12/12/24 06:23 50 ml Q15MIN PRN Administration BG <50 OR BG <70 & pt unresponsive Famotidine 20 mg 11/11/24 09:00 11/19/24 08:43 Famotidine Inj 10 Mg/Ml Vial 2 Ml IVP 12/11/24 08:59 20 mg QDAY RAYO Administration Protocol Glucagon 1 mg 11/12/24 06:24 Glucagon Inj 1 Mg Vial IM Q15MIN PRN BG <70, and no IV access Heparin Sodium (Porcine) 5,000 unit 11/19/24 06:00 11/19/24 06:13 Heparin Sod Inj 5000 Unit/Ml Vial SC 12/03/24 05:59 5,000 unit Q8HR RAYO Administration Norepinephrine/Dextrose 8 mg in 250 mls @ 6.476 mls/hr 11/11/24 16:05 11/19/24 10:27 Levophed In D5w 8mg/250ml IV 12/11/24 16:04 0.01 mcg/kg/min .Q24H PRN 1.295 mls/hr PER PROTOCOL Titration Protocol 0.05 MCG/KG/MIN Albumin Human 25 gm in 100 mls @ 100 mls/min 11/14/24 08:47 11/14/24 18:41 Albuminar-25 Ivpb IV Infused PRN PRN Infusion DIALYSIS Propofol 1,000 mg in 100 mls @ 2.13 mls/hr 11/18/24 20:25 11/19/24 10:27 Diprivan Ivpb IV 12/18/24 20:24 0 mcg/kg/min .Q24H PRN 0 mls/hr PER PROTOCOL Titration Protocol 5 MCG/KG/MIN Dexmedetomidine/Sodium Chloride 400 mcg in 100 mls @ 3.375 mls/hr 11/18/24 20:27 11/19/24 09:00 Precedex Ivpb IV 12/13/24 09:42 1 mcg/kg/hr .Q24H PRN 16.875 mls/hr Per PROTOCOL Titration Protocol 0.2 MCG/KG/HR Fentanyl Citrate 2,500 mcg in 250 mls @ 2.5 mls/hr 11/18/24 20:27 11/19/24 09:00 Sublimaze Inj 2,500 Mcg/250 Ml Bag IV 11/22/24 16:07 200 mcg/hr .Q24H PRN 20 mls/hr PER PROTOCOL Titration Protocol 25 MCG/HR Magnesium Hydroxide 30 ml 11/16/24 10:08 11/16/24 10:46 Milk Of Magnesia Susp 30 Ml Udc PO 12/16/24 10:07 30 ml QDAY PRN Administration CONSTIPATION Protocol Metoprolol Tartrate 25 mg 11/14/24 11:30 11/19/24 08:41 Metoprolol Tartrate 25 Mg Tablet NG 12/14/24 11:29 25 mg BID RAYO Administration Midodrine 10 mg 11/11/24 22:00 11/19/24 06:13 Midodrine 5 Mg Tablet NG 12/11/24 21:59 10 mg TID RAYO Administration Ondansetron HCl 4 mg 11/11/24 05:17 Ondansetron Inj 2 Mg/Ml Inj 2 Ml IVP 12/11/24 05:16 Q6H PRN NAUSEA OR VOMITING Protocol Pharmacy Consult 1 each 11/11/24 05:27 Pharmacy Renal Dose Adjustment 1 Ea XX 12/11/24 05:26 PRN PRN CONSULT Sacubitril/Valsartan 1 tab 11/18/24 11:15 11/19/24 08:42 Sacubitril 24 Mg/Valsartan 26 Mg Tablet PO 12/18/24 11:14 1 tab BID RAYO Administration Sevelamer Carbonate 0.8 gm 11/14/24 08:00 11/19/24 08:41 Sevelamer Carbonate 0.8 Gm Packet (Non-Formulary) NG 12/14/24 07:59 0.8 gm TIDWM RAYO Administration Sodium Chloride 3 ml 11/11/24 04:43 Sodium Chloride Rt Poonam 0.9% 3 Ml Nebu INH 12/11/24 04:42 PRN PRN SOLN Plan Mirella Grewal is a 74-year-old F with a PMH of CHF, coronary artery disease with multiple MIs s/p stents, COPD on 3 L home oxygen, ESRD on hemodialysis, Thursday, Thursday, , Thursday, and A-fib with pacemaker, who was brought in by EMS with a chief complaint of acute SOB. The patient was intubated and admitted to ICU for further management of acute hypoxic hypercapnic respiratory failure secondary to COPD exacerbation. Consent for cardiac catheterization procedure was finally obtained from patient's close friend, and cardiac catheterization was performed by Dr. Escudero yesterday. After the procedure was completed, cardiology determined that there was no intervention they could do that could significantly ameliorate the patient's current critical condition. Cardiology currently recommends pure medical management and pursuit of comfort measures. From nephrology's standpoint, patient will be taking a break from hemodialysis today. #Combined respiratory and metabolic acidosis #ESRD on HD (Thu/Thu/Thu/Thu) Admission ABG showed pH 7.14 and pCO2 71, elevated lactic acid 4.1 Admission creatinine 6.4 (baseline: possibly 4.8-4.9), BUN 39, eGFR 6 11/12/24: worsening kidney function and toxic buildup due to no HD yesterday, creatinine 7.9, BUN 61, K 6.8, phosphorus 7.8 11/12/24: received HD 11/13/24: Cr 4.8 from 7.9, BUN 42 from 61, K 5.6 from 6.8 (improved kidney function after 11/12 HD) 11/14/24: Cr 5.9 from 4.8, BUN 52 from 42, K 5.0 from 5.6, Hgb 9.5, Plt Count 106, ABG pH 7.46 from 7.42, phosphorus 7.4 from 5.8 11/15/24: Cr 4.8 from 5.9, BUN 27 from 52, K 4.3, BP soft 90s /40s 11/16/24: Cr 4.2 from 5.1, BUN 46 from 27, K 4.6, last BP at 12:14 was 94/44 11/17/24: Cr 3.9 from 5.1, BUN 30 from 46 11/18/24: Cr 4.7 from 4.4, BUN 34 from 36 Patient has a left-sided fistula and receives her HD on ///THU Treatment Plan -No HD today -Strict I's & O's -Avoid nephrotoxic medications 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, requires vascular surgery follow up Fistula remains patent and thrill is palpable Treatment Plan -Follow-up with vascular surgery -Continue to monitor #Acute hypoxic respiratory failure - intubated #CAP #Possible CHF exacerbation, likely 2/2 volume overload in the setting of ESRD #Pleural Effusion Critically elevated BNP 2005 with elevated troponin I 0.046 CXR showed moderate congestive heart failure with prominent vascular congestion and perihilar basilar edema Chest CT showed mild heart failure with moderate enlargement of the cardiac contour with small bilateral pleural effusions 11/13 CXR showed bibasilar pneumonia with significant RLL consolidation 11/13 EKG showed a change from sinus rhythm to atrial fibrillation with intermittent pacemaker rhythm 11/14 troponin downtrended to 3.023 from 4.088 Treatment Plan -Continue management per primary care team #SVT #Recurrent Tachyarrythmia #Hx of A-fib, on Eliquis and s/p pacemaker Treatment Plan -Continue management per cardiology recommendations -Continue management per primary care team #Electrolyte abnormalities #Hypocalcemia, likely 2/2 ESRD status (resolving) #Mild hyponatremia #Hypochloremia Treatment Plan -Continue NG calcium carbonate BID per primary care team -Monitor electrolyte levels, correct as needed -Continue Veltassa to treat possible hyperkalemia -Continue sevelamer to treat possible hyperphosphatemia #Normocytic anemia, likely 2/2 ESRD status #Thrombocytopenia Admission Hgb 11.1 (MCV 96, RDW 63.4) 11/12/24: Hgb dropped to 10.0 -s/p Epoetin 10,000 U x1 11/14/24: Hgb 9.5, platelet count down to 106 from 134 11/16/24: Hgb 9.0 11/17/24: Hgb 7.9 Treatment Plan -Monitor H&H, transfuse if Hgb<7 #Other medical problems #Acute encephalopathy likely 2/2 CO2 narcolepsy in the setting of COPD exacerbation #Acute hypoxic hypercapnic respiratory failure likely 2/2 CHF exacerbation vs. COPD exacerbation vs. both #COPD exacerbation #Community-acquired pneumonia #Leukocytosis- downtrending #CAD s/p stents Treatment Plan -Continue management per primary care team Hospital Management: Disposition: no HD today Diet: NPO Lines: Left IJ central line, peripheral lines DVT Prophylaxis: Eliquis 5 mg BID CODE STATUS: Full Code Thank you for allowing us to be part of the patient's care. I have examined the patient and conferred with the nephrology attending, Dr. Mishra, regarding them. Tim Pineda, PGY-1 Internal Medicine Attending Provider Attestation/Addendum Patient seen and examined with resident physician Dr. Pineda. Note reviewed, agree with findings and recommendations. Patient currently seen in ICU. On ventilator. Reintubated for acute hypoxic respiratory failure Patient with arrhythmias and ICD shocks. Dr. Luo did angiogram and noted significant calcification in all the blood vessels including heavy calcification in the mitral valve and the left ventricle completely calcified. Unfortunately cannot fix the problem. No family around to make any medical decisions. Hold dialysis today. Despite daily dialysis patient goes into fluid overload due to heart problems. Critical care spent more than 42 minutes regarding plan of care and disease management. No POA identified. Spoke to ICU team, Dr. Merritt, fork lift technician
[2024-11-19] MEDS: LABETALOL INJ 5 MG/ML VIAL 20 ML 10 MG IVP (11:33)
--- NOTE | 2024-11-19 11:53 | PC.SS ---
SS informed by Jose Myers at bedside requesting to speak to SS. Jose was no longer in patient's room, SS attemtped to connect with Jose Bose [phone]. A message was left explaining role and requesting a return call.
[2024-11-19] MEDS: LACTULOSE SYRUP 20 GM/30 ML UDC 45 GM PO (12:09)
[2024-11-19] MEDS: DEXMEDETOMIDINE 400 MCG IVPB 400 MCG/100 ML BAG 23.625 MCG IV ×3 (14:25→22:53)
--- NOTE | 2024-11-19 14:38 | ESPR_ITS ---
Documentation for date of: 11/19/24 Subjective Subjective Interval history: This is a 74-year-old female admitted to the hospital on 11 November for acute hypoxic hypercapnic respiratory failure. She was found to have a COPD exacerbation. She had gradually improved and on the was placed on pressure support. She lasted for approximately 20 minutes before developing SVT requiring adenosine, metoprolol and diltiazem. She also developed flash pulmonary edema. She was sedated and placed back on AC/VC. On the sedation vacation was again attempted with spontaneous breathing trial. When she is awake she is very anxious and when she becomes anxious she develops SVT. This time she also developed VT and her ICD fired. She was again sedated and placed on AC/VC as well as an amiodarone drip. Discussion was held with cardiology regarding her recurrent arrhythmias. It was felt that she does have ischemic heart disease which is responsible for these dysrhythmias. The plan was for cardiac cath. Originally the patient was supposed to go for cath on the however this was canceled by cardiology. Therefore the patient was once again placed on spontaneous breathing trial which she did pass. She was extubated to BiPAP. She was still very anxious requiring Precedex drip as well as as needed Haldol. This morning she is more sedated and seems somewhat confused. There are no acute overnight events. Yesterday in the afternoon she had repeat episodes of VT terminated by her ICD. She is anuric from her end-stage renal disease. 11/19-yesterday the patient was taken to the [facility] which did not reveal any lesions that were amenable to intervention. No acute overnight events. Today the patient sedation is being weaned down. Critical Care Note Critical care time (min.): 38 Exam Vital Signs Temp Pulse Resp BP Pulse Ox O2 Del Method O2 Flow Rate 96.9 F 70 18 124/65 100 Mechanical Ventilation 2 11/19/24 12:00 11/19/24 13:00 11/19/24 10:24 11/19/24 13:00 11/19/24 13:00 11/19/24 13:00 11/18/24 12:51 FiO2 40 11/19/24 13:00 Narrative Exam General-intubated, sedated, elderly, normal body habitus HEENT-normocephalic, atraumatic, sclera icteric, oral mucosa somewhat dry, ET tube and OG tube Chest-diminished breath sounds at bilateral bases, occasional crackles, no expiratory wheezes, heart rate regular and rhythmic, occasional ectopy, no increased work of breathing Abdomen-soft, nontender, bowel sounds present, no rebound or guarding Extremities-significant edema bilateral upper extremities, pulses palpable, extensive bruising of bilateral upper extremities, moves all 4, no clubbing Vent AC VC Drips Precedex Physical Exam Completion Physical Exam Complete?: Yes Objective - [employer] Labs 11/19/24 05:09 11/19/24 05:09 Labs: Laboratory Results - last 24 hr 11/18/24 11/19/24 11/19/24 12:54 04:14 05:09 WBC 11.0 D RBC 3.40 L Hgb 10.3 L D 10.0 L Hct 30.7 L D 29.9 L MCV 88 MCH 29.4 MCHC 33.4 RDW Std Deviation 55.3 H Plt Count 123 L D Neut % (Auto) 79 Lymph % (Auto) 5 L [place] % (Auto) 12 Eos % (Auto) 3 Baso % (Auto) 0 Neut # (Auto) 8.7 H Lymph # (Auto) 0.6 L [place] # (Auto) 1.3 H Eos # (Auto) 0.3 Baso # (Auto) 0.0 Immature Gran # (Auto) 0.12 H Absolute Nucleated RBC 0.00 Immature Gran % 1 H Nucleated RBC % 0 APTT 29.2 D Puncture Site Right Brachial ABG pH 7.41 ABG pCO2 43 ABG pO2 205 H ABG HCO3 27 H ABG O2 Saturation 101 H ABG Base Excess 3 FiO2 21 Sodium 136 Potassium 4.0 Chloride 96 L Carbon Dioxide 27.1 Anion Gap 13 BUN 25 H Creatinine 3.6 H D Estim Creat Clear Calc 13.0 L eGFR 13 L* BUN/Creatinine Ratio 7 L Glucose 132 H Calculated Osmolality 278 Calcium 8.7 Corrected Calcium 9.5 Phosphorus 5.2 H Magnesium 1.8 Albumin 3.0 L Assessment & Plan Additional Assessment Additional Assessment: In summary this is 74-year-old female with acute respiratory failure and ischemic heart disease a/p [employer]- pt appears confused with intermittent agitation - attempt to reorient - Currently on Precedex - Also requiring as needed Haldol and on Seroquel CV SVT/VT- on metoprolol 5mg IV for termination of SVT and metoprolol q12 - ICD terminates VT - on amio for stabilization of rhythm - Underwent cath without any ischemic lesion that could be intervened on -Heavy scarring and calcifications noted in the left ventricle -Patient's ongoing arrhythmia felt to be secondary to scarring without any definitive lesion to intervene on -There are no further interventions available for the patient's current condition h/o Afib- eliquis on hold Ischemic cardiomyopathy- echo shows EF 30% with global hypokinesia and post wall akinesia - mod to severe MS - last echo in September 2023 showed EF of 45% - Cath did not show any lesion amenable to intervention - on BB - On entresto Tropinemia- AL type I v II - on heparin , ASA and plavix -> heparin stopped given cath results - followed by cardiology Resp Acute Resp failure-currently intubated, fu ABG and CXR - ABG ok - wean to PSV as able COPDE- improved Pulmonary edema- ongoing HD for volume removal ? CAP- on 7 days abx - cx grew Acinetobacter fajardo sensitive - Has completed 7 days Renal HypoNa- mild, monitor ESRD on HD- followed by nephrology Hyperphos- on sevelamer GI NPo till passes swallow Endo stable Heme Anemia-transfused on the 2 units of PRBCs -Drop in the H&H at that point in time likely due to bleed from attempted A-line the evening prior -H&H remained stable Thrombocytopenia- no indication for transfusion, had improved yesterday but down again today - HIT panel had been sent which is neg ID PNA- on 7days abx + Bcx- bcx from 11/11 was staph capitis, all repeat bcx NTD -> likely contaminant case d/w ICU team and nephrology Will need goals of care discussion as there does not appear to be any additional intervention available labs, imaging, records reviewed ~38ccmin required for eval, exam, review, intervention, dicussion and formulation of POC for this critically ill patient at high risk for further and ongoing decompensation Provider Notation Provider Notation: Although this document has been carefully reviewed, there may still be some phonetic and other typographical errors. These errors are purely grammatical due to imperfections in the software program and should not be construed in any way to compromise the substance of the patient's medical care during this visit. Thank you for the opportunity and privilege in assisting you with this patient's care and management.
--- NOTE | 2024-11-19 15:28 | EKG_ITS ---
[facility] Test Date: 2024-11-19 Pat Name: REILLY GRADY Department: Room: S253A Gender: Female Charge [employer] We[employer]her: JUDI : 1950 Requested By: Elmer Husain Order Number: [id number] Reading MD: Elmer Husain Measurements Intervals [place] Rate: 70 P: 252 OR: 237 QRS: -10 QRSD: 115 T: 150 QT: 451 QTc: 488 Interpretive Statements ELECTRONIC ATRIAL PACEMAKER INFERIOR MYOCARDIAL INFARCTION , PROBABLY RECENT ACUTE FL Compared to ECG 11/16/2024 20:44:40 Intraventricular conduction delay no longer present ST (T wave) deviation no longer present Myocardial infarct finding still present /store/S0/[id number]/[id number].pdf
--- NOTE | 2024-11-19 20:07 | ESPR_ITS ---
<Statement entered by Jessenia Escudero MD - 11/20/24 18:41> The patient is evaluated by me in the intensive care and remains critical condition underwent coronary angiogram yesterday that showed evidence of extensive CAD heavily calcified aorta eggshell calcification entire aorta iliac vessels with severe disease iliac arteries and femoral artery common femoral artery due to 90% stenosis cannot have an Impella or balloon pump. There is 80% ostial left main stenosis not suitable for PCI not a candidate for surgery progress extremely poor. Plan is to continue supportive care and she is to remain critical condition when the patient is extubated discussed about CODE STATUS and possible comfort care. I agree with the treatment plan recommendation evaluated patient with resident physician PGY 2 treatment plan discussed extensively in detail spent more than 1 hour of time. I agree with the treatment plan recommendation as documented by Dr. Richard Gan PGY2 Documentation for date of: 11/19/24 Subjective Subjective Interval history: Continued to have VT and tachyarrhythmia controlled with current regimen. ICU team is planning on weaning off sedation and possible extubation tomorrow. Exam Vital Signs Temp Pulse Resp BP Pulse Ox O2 Del Method O2 Flow Rate 96.9 F 71 18 108/54 L 99 Mechanical Ventilation 2 11/19/24 12:00 11/19/24 19:00 11/19/24 18:15 11/19/24 19:00 11/19/24 18:15 11/19/24 13:00 11/18/24 12:51 FiO2 30 11/19/24 18:15 Narrative Exam General: Sedated and Mechanically ventilated. HEENT: Normocephalic, atraumatic, mucous membranes moist. Heart: Regular rate and rhythm, no murmurs. Lungs: Clear to auscultation with no wheezing or crackles. Abdomen: Soft, nondistended, nontender, positive bowel sounds. ?No guarding or rebound tenderness. Neurologic: Sedated and mechanically ventilated. Extremities: No edema. Left AV fistula noted Skin: No rash or ecchymoses. Objective Labs 11/19/24 05:09 11/19/24 05:09 Labs: Laboratory Results - last 24 hr 11/19/24 11/19/24 04:14 05:09 WBC 11.0 D RBC 3.40 L Hgb 10.0 L Hct 29.9 L MCV 88 MCH 29.4 MCHC 33.4 RDW Std Deviation 55.3 H Plt Count 123 L D Neut % (Auto) 79 Lymph % (Auto) 5 L [place] % (Auto) 12 Eos % (Auto) 3 Baso % (Auto) 0 Neut # (Auto) 8.7 H Lymph # (Auto) 0.6 L [place] # (Auto) 1.3 H Eos # (Auto) 0.3 Baso # (Auto) 0.0 Immature Gran # (Auto) 0.12 H Absolute Nucleated RBC 0.00 Immature Gran % 1 H Nucleated RBC % 0 APTT 29.2 D Puncture Site Right Brachial ABG pH 7.41 ABG pCO2 43 ABG pO2 205 H ABG HCO3 27 H ABG O2 Saturation 101 H ABG Base Excess 3 FiO2 21 Sodium 136 Potassium 4.0 Chloride 96 L Carbon Dioxide 27.1 Anion Gap 13 BUN 25 H Creatinine 3.6 H D Estim Creat Clear Calc 13.0 L eGFR 13 L* BUN/Creatinine Ratio 7 L Glucose 132 H Calculated Osmolality 278 Calcium 8.7 Corrected Calcium 9.5 Phosphorus 5.2 H Magnesium 1.8 Albumin 3.0 L ABG Interpretation ABG results: 11/11/24 11/11/24 11/12/24 04:01 07:38 04:55 ABG pH 7.14 L* 7.37 D 7.26 L D ABG pCO2 71 H* 42 D 44 ABG pO2 116 H 97 95 ABG HCO3 24 24 20 ABG O2 Saturation 97 99 H 98 ABG Base Excess -6 L -1 -7 L 11/12/24 11/13/24 11/14/24 07:35 04:13 04:35 ABG pH Cancelled 7.42 D 7.46 H ABG pCO2 Cancelled 48 40 ABG pO2 Cancelled 79 L 106 D ABG HCO3 Cancelled 31 H 29 H ABG O2 Saturation Cancelled 97 99 H ABG Base Excess Cancelled 6 H 4 H 11/15/24 11/16/24 11/16/24 04:58 05:20 11:55 ABG pH 7.47 H 7.29 L D 7.41 D ABG pCO2 39 51 H D 39 D ABG pO2 100 234 H D 160 H D ABG HCO3 29 H 24 24 ABG O2 Saturation 99 H 100 H 100 H ABG Base Excess 5 H -2 0 11/17/24 11/17/24 11/18/24 09:09 16:45 05:00 ABG pH 7.48 H 7.36 D 7.40 ABG pCO2 33 47 D 44 ABG pO2 132 H D 154 H D 203 H D ABG HCO3 25 27 H 27 H ABG O2 Saturation 101 H 100 H 101 H ABG Base Excess 1 1 2 11/19/24 04:14 ABG pH 7.41 ABG pCO2 43 ABG pO2 205 H ABG HCO3 27 H ABG O2 Saturation 101 H ABG Base Excess 3 Quality Measures Quality Measures none Advance care planning discussed with:: other Assessment & Plan Assessment Current Active Medications: Generic Name Dose Route Start Last Admin Trade Name Freq PRN Reason Stop Dose Admin Acetaminophen 650 mg 11/11/24 05:17 Acetaminophen 325 Mg Tablet PO 12/11/24 05:16 Q6H PRN Fever >100.5 Albuterol/Ipratropium 3 ml 11/11/24 07:00 11/19/24 18:15 Albuterol/Ipratropium (Duoneb) Rt Poonam 3 Ml Nebu INH 12/11/24 06:59 3 ml Q4HRRT RAYO Administration Amiodarone HCl 200 mg 11/18/24 09:00 11/19/24 08:42 Amiodarone Hcl 200 Mg Tablet NG 12/18/24 08:59 200 mg BID RAYO Administration Aspirin 81 mg 11/11/24 09:00 11/19/24 08:43 Aspirin 81 Mg Chew NG 12/11/24 08:59 81 mg QDAY RAYO Administration Atorvastatin Calcium 40 mg 11/11/24 21:00 11/18/24 20:02 Atorvastatin Calcium 20 Mg Tablet NG 12/11/24 20:59 40 mg HS RAYO Administration Bisacodyl 10 mg 11/16/24 10:09 11/16/24 10:44 Bisacodyl 10 Mg Supp ME 12/16/24 10:08 10 mg QDAY PRN Administration CONSTIPATION Protocol Clopidogrel Bisulfate 75 mg 11/18/24 09:00 11/19/24 08:41 Clopidogrel Bisulfate 75 Mg Tablet NG 12/18/24 08:59 75 mg QDAY RAYO Administration Dextrose 25 ml 11/12/24 06:24 11/17/24 12:19 Dextrose 50%-Water Inj 50 Ml Syringe IV 12/12/24 06:23 25 ml Q15MIN PRN Administration BG 50-70 responsive npo pt Dextrose 50 ml 11/12/24 06:24 11/18/24 18:50 Dextrose 50%-Water Inj 50 Ml Syringe IV 12/12/24 06:23 50 ml Q15MIN PRN Administration BG <50 OR BG <70 & pt unresponsive Famotidine 20 mg 11/11/24 09:00 11/19/24 08:43 Famotidine Inj 10 Mg/Ml Vial 2 Ml IVP 12/11/24 08:59 20 mg QDAY RAYO Administration Protocol Glucagon 1 mg 11/12/24 06:24 Glucagon Inj 1 Mg Vial IM Q15MIN PRN BG <70, and no IV access Haloperidol Lactate 5 mg 11/19/24 15:27 Haloperidol Lact Inj 5 Mg/Ml Vial IV 11/24/24 15:26 Q6HR PRN AGITATION (SEVERE) Heparin Sodium (Porcine) 5,000 unit 11/19/24 06:00 11/19/24 15:05 Heparin Sod Inj 5000 Unit/Ml Vial SC 12/03/24 05:59 5,000 unit Q8HR RAYO Administration Norepinephrine/Dextrose 8 mg in 250 mls @ 6.476 mls/hr 11/11/24 16:05 11/19/24 10:47 Levophed In D5w 8mg/250ml IV 12/11/24 16:04 0 mcg/kg/min .Q24H PRN 0 mls/hr PER PROTOCOL Titration Protocol 0.05 MCG/KG/MIN Albumin Human 25 gm in 100 mls @ 100 mls/min 11/14/24 08:47 11/14/24 18:41 Albuminar-25 Ivpb IV Infused PRN PRN Infusion DIALYSIS Propofol 1,000 mg in 100 mls @ 2.13 mls/hr 11/18/24 20:25 11/19/24 10:27 Diprivan Ivpb IV 12/18/24 20:24 0 mcg/kg/min .Q24H PRN 0 mls/hr PER PROTOCOL Titration Protocol 5 MCG/KG/MIN Dexmedetomidine/Sodium Chloride 400 mcg in 100 mls @ 3.375 mls/hr 11/18/24 20:27 11/19/24 18:28 Precedex Ivpb IV 12/13/24 09:42 1.4 mcg/kg/hr .Q24H PRN 23.625 mls/hr Per PROTOCOL Administration Protocol 0.2 MCG/KG/HR Fentanyl Citrate 2,500 mcg in 250 mls @ 2.5 mls/hr 11/18/24 20:27 11/19/24 12:19 Sublimaze Inj 2,500 Mcg/250 Ml Bag IV 11/22/24 16:07 Infused .Q24H PRN Titration PER PROTOCOL Protocol 25 MCG/HR Labetalol HCl 20 mg 11/19/24 14:42 Labetalol Inj 5 Mg/Ml Vial 20 Ml IVP 12/19/24 17:59 Q4HR PRN hypertension Magnesium Hydroxide 30 ml 11/16/24 10:08 11/16/24 10:46 Milk Of Magnesia Susp 30 Ml Udc PO 12/16/24 10:07 30 ml QDAY PRN Administration CONSTIPATION Protocol Metoprolol Tartrate 25 mg 11/14/24 11:30 11/19/24 08:41 Metoprolol Tartrate 25 Mg Tablet NG 12/14/24 11:29 25 mg BID RAYO Administration Midodrine 10 mg 11/11/24 22:00 11/19/24 15:05 Midodrine 5 Mg Tablet NG 12/11/24 21:59 10 mg TID RAYO Administration Ondansetron HCl 4 mg 11/11/24 05:17 Ondansetron Inj 2 Mg/Ml Inj 2 Ml IVP 12/11/24 05:16 Q6H PRN NAUSEA OR VOMITING Protocol Pharmacy Consult 1 each 11/11/24 05:27 Pharmacy Renal Dose Adjustment 1 Ea XX 12/11/24 05:26 PRN PRN CONSULT Sacubitril/Valsartan 1 tab 11/18/24 11:15 11/19/24 08:42 Sacubitril 24 Mg/Valsartan 26 Mg Tablet PO 12/18/24 11:14 1 tab BID RAYO Administration Sevelamer Carbonate 0.8 gm 11/14/24 08:00 11/19/24 18:35 Sevelamer Carbonate 0.8 Gm Packet (Non-Formulary) NG 12/14/24 07:59 0.8 gm TIDWM RAYO Administration Sodium Chloride 3 ml 11/11/24 04:43 Sodium Chloride Rt Poonam 0.9% 3 Ml Nebu INH 12/11/24 04:42 PRN PRN SOLN Plan The patient is a 74-year-old female with a history of CHF, CAD with multiple MIs and stents, COPD on 3 L home oxygen, ESRD on hemodialysis, and atrial fibrillation with pacemaker, who presented on 11/11/24 via EMS with acute shortness of breath. At home, she was hypoxic with oxygen saturation in the 80s and received DUONEB during transport. In the ED, she was saturating at 84% on high-flow CPAP, hypertensive to 200/76 mmHg, and altered. ABG demonstrated acute hypercapnic and hypoxic respiratory failure (pH 7.14, pCO? 71, pO? 116). CXR showed right lower lobe pneumonia. Labs revealed leukocytosis, elevated BNP (2006), elevated D-dimer, mild troponin rise (0.046), and creatinine consistent with ESRD. She was intubated, given METHYLPREDNISOLONE, fluids, CEFIXIME, and VANCOMYCIN, and admitted to the ICU. 1. Acute hypoxic respiratory failure secondary to chronic obstructive lung disease and acute decompensated congestive heart failure, flash pulmonary edema requiring mechanical ventilation. 2. Acute non-ST segment elevation myocardial infarction with persistent ST segment changes, chronically elevated due to left ventricular inferobasal and posterobasal aneurysm. 3. Coronary artery disease status post multivessel stent placement. 4. End-stage renal disease on hemodialysis. 5. Severe chronic obstructive lung disease. 6. Paroxysmal atrial fibrillation. 7. Vtach 8. Pulmonary edema Cardiac catheterization demonstrated extensive vascular and myocardial disease. Hemodynamics showed elevated LVEDP (18 mmHg) with no gradient across the aortic valve. LV angiogram revealed extensive inferoapical and apical akinesis with aneurysmal dilation, severe calcification, and EF ~30%. Coronary angiography showed a heavily calcified RCA with patent stents supplying nonviable myocardium, and severe 80% ostial left main stenosis with heavy calcification. Additional findings included diffuse calcification of the aorta, mitral annulus, and iliofemoral vessels, with severe stenosis of the left common femoral artery. The patient developed sustained VT with hemodynamic instability during the procedure, requiring cardioversion. RECOMMENDATIONS: Given critical left main disease, severe LV dysfunction, and diffuse calcification of the aorta and peripheral vasculature, the patient is not a candidate for PCI, Impella-assisted intervention, or CABG. With end-stage renal disease, recurrent hospitalizations, refractory ventricular arrhythmias, and high procedural risk, further revascularization is not feasible. Recommendation is for medical management only. Due to recurrent VT/VF and poor prognosis, transition to comfort-focused care is advised if appropriate, avoiding repeated shocks and burdensome interventions. Case was discussed with attending physician, Dr. Escudero. Richard Gan, DO PGY II This document was transcribed using voice recognition technology. Minor inaccuracies may be present.
[2024-11-19] MEDS: ATORVASTATIN CALCIUM 20 MG TABLET 40 MG NG (20:14)
--- NOTE | 2024-11-19 22:47 | PD.RESPRO ---
Documentation for date of: 11/19/24 Subjective Subjective Interval history: The patient is a 74-year-old female with significant past medical history of CHF, coronary artery disease with multiple MIs s/p stents, COPD on 3 L home oxygen, ESRD on hemodialysis, Thursday, Thursday, , Thursday, A-fib with pacemaker, brought in by EMS with chief complaint of acute SOB. The patient called EMS due to SOB, and she was saturating on 80s at her home. She was given DuoNeb on the way to hospital, and when she presented to ED, her saturation was 84 on high flow CPAP. She was already altered, and was intubated. Further history were unobtainable, as patient was already intubated during my evaluation. In the ED her vitals were significant for a blood pressure of 200/76, pulse 79, RR 20, labs are significant for white count 13.5, RBC 3.88, hemoglobin 11.1, D-dimer 2630, ABG revealed pH of 7.14, pCO2 71, pO2 116, bicarb 24, sodium 135, potassium 4.6, BUN 39, creatinine 6.4, lactic acid 4.1, corrected calcium 7.7, magnesium 2.2, AST/ALT/ALP less than 10, less than 10/05/2027 respectively. Ammonia was 17, troponin 0.046, CRP less than 0.5, BNP 2006, lipid panel revealed LDL 116, lipase 68, TSH 6.61, free T4 0.84. UA revealed orange urine, 2+ protein, 2+ blood, leukocyte Estrace positive, RBC 502, WBC 1255, chest x-ray revealed right lower lobe pneumonia, EKG revealed old [place]. The patient received methylprednisone 125 Mg IV x 1, bolus fluid 1 L at the rate 250 cc/h, cefixime 2 g IV x 1, and started on vancomycin. The patient was intubated and admitted to ICU for further management of acute hypoxic hypercapnic respiratory failure secondary to COPD exacerbation. 11/11/2024: Patient is sedated and on mechanical ventilator. Most of the history is taken from the chart review and from the nurse at the bedside. Patient supposedly lives alone and developed shortness of breath, for which she called the EMS. By the time EMS went her home she was severely short of breath for which she was given DuoNebs and was kept on CPAP following which she was brought to the hospital where she was given steroids, sedated and intubated. Later central line was placed. No acute overnight events. Vitals are stable and patient is on propofol and fentanyl drip without any vasopressor support. Started on methylprednisolone 60 Mg IV once daily, ceftriaxone and azithromycin. Repeat ABG after the intubation is within normal limits. Will continue mechanical ventilation for now and monitor the patient. Later in the evening, patient is found to be mildly hypotensive for which low-dose Levophed was started and patient was given a dose of midodrine 10 Mg through orogastric tube. 11/12/2024: Patient is seen and examined at bedside in the ICU. No acute overnight events. Sedated and on mechanical ventilator, VC/AC mode with tidal volume 380, PEEP 5, FiO2 30% and saturating around 95%. Vitals are stable and patient is mildly hypotensive, started on Levophed which was stopped around 7 AM this morning, maintain blood pressures only on minimal doses of Levophed 0.05 mcg/kg/min. Labs done this morning showed mild leukocytosis, sodium 131, potassium 5.5, BUN 61, creatinine 7.9, bicarb 19.2, phosphorus 7.8. ABG showed metabolic acidosis Patient missed her dialysis session yesterday which was started this morning and Levophed is restarted to support the blood pressure during dialysis. Tolerated dialysis well on 2 L of fluid is taken. Patient was changed from VC/AC mode to pressure support mode. Will repeat ABG tomorrow morning and if patient is hemodynamically stable, able to respond after weaning of the sedation, planning to wean her off the mechanical ventilator. 11/13/2024: Patient seen this morning, at a RASS of 0 able to follow commands well, interactive and trying to communicate. Initially plan was to extubate today. Later that morning around 9:40 am patient appeared anxious and went into SVT rate up to 180s with hypoxia in the 70s while on pressure support. Patient was switched back to AC/VC on 100% FiO2. Patient was given metoprolol tartrate 5 mg IV x1, adenosine 6 mg IV x1, furosemide 40 mg IV x1, diltiazem 10 mg IV x1, and midazolam 1 mg IV x1, after which patient had resolution of heart rate and rhythm. Patient was then placed on Precedex drip. Will keep patient sedated overnight and try for extubation tomorrow. Started Veltassa for hyperkalemia, follow up potassium levels. Patient will have dialysis tomorrow. Troponin was repeated in the afternoon which was elevated at 4.088 therefore Plavix loading dose was given 300 mg x1 followed by 75 mg qday and heparin drip was started after discussed with Dr. Escudero. 11/14/2024: Patient is seen and examined at bedside in the ICU. Initial plan was to extubate patient this morning but after decreasing the sedation, patient became more interactive and is trying to communicate with the hand gestures and trying to speak. Patient was kept on pressure support mode and she was tolerating it well. Later suddenly noted multiple episodes of SVT and VT. Patient was given 300 mg bolus of amiodarone and was started on amiodarone drip. Later no further episodes of arrhythmias were noted during the day. Patient was kept back on the VC/AC mode. Consulted life enrichment assistant, Dr. Escudero who is following the patient, recommended that he will do cardiac cath on 11/16/2024. So we will plan to extubate patient once the cardiac cath is done as patient is going into arrhythmias whenever trying to wean her off the sedation and extubate. Patient is taking metoprolol 25 mg twice daily at home. Echocardiogram done on 11/13/2024 showed EF of 30%. So resumed metoprolol to tartrate 25 mg twice daily. Will continue telemetry monitoring 11/15/2024: Patient is seen and examined at bedside in the ICU. No acute overnight events. No further episodes of SVT and VT noted. Patient continued to be on the amiodarone drip and heparin drip. Pending cardiac cath tomorrow around 11:[address] Escudero. Noted to have mild respiratory alkalosis for which respiratory rate is decreased from 20-18. Labs done this morning showed thrombocytopenia, 97,000. As patient is on heparin drip and also noted to have downtrending platelet count since the start of heparin drip, will do workup for heparin-induced thrombocytopenia. Will keep patient on n.p.o. since midnight. Transition to oral amiodarone 200 mg twice daily based on Dr. Escudero's recommendations. Will stop heparin drip around 1 hour before the cardiac catheterization. Talked to her friend who is the point of contact who gave consent for the cardiac catheterization and also patient when she is awake she wrote down on the patient that she wants to undergo cardiac catheterization. Planning to extubate once cardiac catheterization is done if the patient is hemodynamically stable.Will continue to monitor platelet count and discontinue heparin drip of the platelet counts downtre 11/16/2024: Patient is seen and examined at bedside in the ICU. No acute overnight events. Patient is noted to be agitated overnight for which she was kept on high doses of fentanyl and Precedex. Otherwise patient is doing good and ABG done this morning showed mild respiratory acidosis. Patient was supposed to get cardiac cath today but the procedure is postponed for now. As patient is hemodynamically stable and is on minimal requirement of FiO2, planned to extubate. Patient was started on pressure support and titrated to wean her off sedation. Patient tolerated pressure support well and passed spontaneous breathing trial following which patient was extubated on 11/16/2024 around 10:20 AM. Patient is extubated to BiPAP. Later patient was noted to have multiple episodes of short lasting SVT and VT for which a dose of metoprolol 5 mg and Haldol, Seroquel is given as patient appears to be delirious and continuously got agitated saying that someone is trying to kill her. Patient was restarted on Precedex. Around 3 PM patient was started on the dialysis during which she needed vasopressor support for shock. ABG done after extubation is within normal limits. Patient was weaned off the BiPAP and kept on the oxy mask. Patient continued to develop SVT and bradycardia episodes for which patient was given amiodarone 150 mg bolus and started on drip. [employer], Dr. Escudero is following the patient and recommended to continue drip. ICD interrogation was done and showed multiple episodes of VT for which shock was delivered. Found to have Acinetobacter Iwofii on sputum culture for which patient was started on Unasyn 11/17/2024: Patient is seen and examined at bedside in the ICU. Overnight, patient was noted to have episodes of SVT and VT for which patient was given a dose of metoprolol 5 mg and in the view of agitation, patient also received 1 dose of olanzapine. At the time of examination in the morning, patient is able to answer some questions but still delirious and confused. Vitals are stable and patient is on OxyMask. Labs done this morning showed hemoglobin 7.9, platelets 104, sodium 133, potassium 3.6, BUN 30, creatinine 3.9. Patient was given a dose of 20 mill equivalents of IV potassium in view of continuous arrhythmias. Around 1:30 PM, patient was noted to have altered sensorium with difficulty breathing for which patient was kept on BiPAP despite which the saturations are low around 80s for which patient was intubated and kept on mechanical ventilator. A dose of labetalol 10 mg is given at the time in view of high blood pressures and suspected pulmonary edema. Will continue amiodarone, heparin drip. Repeat CBC, CMP, lactate and procalcitonin, ABG is ordered. 11/18/2024: Patient is seen and examined at the bedside in the ICU. Overnight, patient found to be agitated and was started on fentanyl drip. Vitals are stable and noted to have no episodes of SVT/VT. Vitals are stable. On physical examination, patient noted to have oozing from right upper extremity. Noted no bowel movements since the time of admission despite edema, milk of mag and senna. Labs done this morning showed hemoglobin of 6.7, likely acute blood loss from the right thigh hematoma. Patient got her regular HD today with 2 units of PRBC transfusion with 3 L of fluid removal. [employer], Dr. 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 Patient found to have episodes of VT in the cardiac Ag Service Manager for which patient was given 2 shocks following which converted to normal sinus rhythm. Heparin drip was stopped and patient was transferred back to the ICU. No further episodes of VT was noted. Planning to start lidocaine drip the patient continues to have recurrent persistent VT. Goals of care discussion are done with the point of contact, siria and explain her but patient's current condition and her prognosis. The the point of contact, Siria is willing to keep her on comfort measures as her medical conditions are addressed and noted to have poor prognosis but she is concerned about the lability issues. will have a goals of care discussions again tomorrow with thermometer production worker. 11/19/2024: Patient is seen and examined at bedside in the ICU. Overnight, patient was found to have an SVT episode for which a dose of metoprolol 2.5 mg is given and no other significant events. Vitals are stable and patient is on low-dose Levophed and sedation. Vitals are stable. On physical examination, patient appears to respond to verbal commands and able to follow commands, patient is trying to communicate. On physical examination, noted to have abdominal distention and patient had no bowel movement since the time of admission. Labs done this morning showed hemoglobin 10, platelets 123, BUN 25, creatinine 3.6, phosphorus 5.2, albumin 3. Patient was started on 45 g of lactulose every fourth hourly following which patient had 2 large bowel movements. As patient is able to follow commands, started on pressure support and patient is tolerating well. If patient is hemodynamically stable and passes SBT, plan to extubate tomorrow after having goals of care discussion. Hemodialysis is held for today. Exam Vital Signs Temp Pulse Resp BP Pulse Ox O2 Del Method O2 Flow Rate 97.9 F 70 12 86/57 L 97 Mechanical Ventilation 2 11/19/24 20:01 11/19/24 22:03 11/19/24 22:03 11/19/24 22:03 11/19/24 22:03 11/19/24 21:01 11/18/24 12:51 FiO2 30 11/19/24 22:03 Narrative Exam General: Sedated and Mechanically ventilated. HEENT: Normocephalic, atraumatic, mucous membranes moist. Heart: regular rate and rhythm, no murmurs. Lungs: Clear to auscultation with no wheezing or crackles. Abdomen: Soft, nondistended, nontender, positive bowel sounds. ?No guarding or rebound tenderness. Neurologic: Sedated and mechanically ventilated. Extremities: No edema. Left AV fistula noted. 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 Right upper extremity swelling and oozing noted from that site Skin: No rash. ecchymotic patches noted on right arm and at the site of IV catheters Objective Labs 11/19/24 05:09 11/19/24 05:09 Labs: Laboratory Results - last 24 hr 11/19/24 11/19/24 04:14 05:09 WBC 11.0 D RBC 3.40 L Hgb 10.0 L Hct 29.9 L MCV 88 MCH 29.4 MCHC 33.4 RDW Std Deviation 55.3 H Plt Count 123 L D Neut % (Auto) 79 Lymph % (Auto) 5 L [place] % (Auto) 12 Eos % (Auto) 3 Baso % (Auto) 0 Neut # (Auto) 8.7 H Lymph # (Auto) 0.6 L [place] # (Auto) 1.3 H Eos # (Auto) 0.3 Baso # (Auto) 0.0 Immature Gran # (Auto) 0.12 H Absolute Nucleated RBC 0.00 Immature Gran % 1 H Nucleated RBC % 0 APTT 29.2 D Puncture Site Right Brachial ABG pH 7.41 ABG pCO2 43 ABG pO2 205 H ABG HCO3 27 H ABG O2 Saturation 101 H ABG Base Excess 3 FiO2 21 Sodium 136 Potassium 4.0 Chloride 96 L Carbon Dioxide 27.1 Anion Gap 13 BUN 25 H Creatinine 3.6 H D Estim Creat Clear Calc 13.0 L eGFR 13 L* BUN/Creatinine Ratio 7 L Glucose 132 H Calculated Osmolality 278 Calcium 8.7 Corrected Calcium 9.5 Phosphorus 5.2 H Magnesium 1.8 Albumin 3.0 L ABG Interpretation ABG results: 11/11/24 11/11/24 11/12/24 04:01 07:38 04:55 ABG pH 7.14 L* 7.37 D 7.26 L D ABG pCO2 71 H* 42 D 44 ABG pO2 116 H 97 95 ABG HCO3 24 24 20 ABG O2 Saturation 97 99 H 98 ABG Base Excess -6 L -1 -7 L 11/12/24 11/13/24 11/14/24 07:35 04:13 04:35 ABG pH Cancelled 7.42 D 7.46 H ABG pCO2 Cancelled 48 40 ABG pO2 Cancelled 79 L 106 D ABG HCO3 Cancelled 31 H 29 H ABG O2 Saturation Cancelled 97 99 H ABG Base Excess Cancelled 6 H 4 H 11/15/24 11/16/24 11/16/24 04:58 05:20 11:55 ABG pH 7.47 H 7.29 L D 7.41 D ABG pCO2 39 51 H D 39 D ABG pO2 100 234 H D 160 H D ABG HCO3 29 H 24 24 ABG O2 Saturation 99 H 100 H 100 H ABG Base Excess 5 H -2 0 11/17/24 11/17/24 11/18/24 09:09 16:45 05:00 ABG pH 7.48 H 7.36 D 7.40 ABG pCO2 33 47 D 44 ABG pO2 132 H D 154 H D 203 H D ABG HCO3 25 27 H 27 H ABG O2 Saturation 101 H 100 H 101 H ABG Base Excess 1 1 2 11/19/24 04:14 ABG pH 7.41 ABG pCO2 43 ABG pO2 205 H ABG HCO3 27 H ABG O2 Saturation 101 H ABG Base Excess 3 Quality Measures Quality Measures none Advance care planning discussed with:: other Assessment & Plan Assessment Current Active Medications: Generic Name Dose Route Start Last Admin Trade Name Freq PRN Reason Stop Dose Admin Acetaminophen 650 mg 11/11/24 05:17 Acetaminophen 325 Mg Tablet PO 12/11/24 05:16 Q6H PRN Fever >100.5 Albuterol/Ipratropium 3 ml 11/11/24 07:00 11/19/24 22:02 Albuterol/Ipratropium (Duoneb) Rt Poonam 3 Ml Nebu INH 12/11/24 06:59 3 ml Q4HRRT RAYO Administration Amiodarone HCl 200 mg 11/18/24 09:00 11/19/24 20:14 Amiodarone Hcl 200 Mg Tablet NG 12/18/24 08:59 200 mg BID RAYO Administration Aspirin 81 mg 11/11/24 09:00 11/19/24 08:43 Aspirin 81 Mg Chew NG 12/11/24 08:59 81 mg QDAY RAYO Administration Atorvastatin Calcium 40 mg 11/11/24 21:00 11/19/24 20:14 Atorvastatin Calcium 20 Mg Tablet NG 12/11/24 20:59 40 mg HS RAYO Administration Bisacodyl 10 mg 11/16/24 10:09 11/16/24 10:44 Bisacodyl 10 Mg Supp NV 12/16/24 10:08 10 mg QDAY PRN Administration CONSTIPATION Protocol Clopidogrel Bisulfate 75 mg 11/18/24 09:00 11/19/24 08:41 Clopidogrel Bisulfate 75 Mg Tablet NG 12/18/24 08:59 75 mg QDAY RAYO Administration Dextrose 25 ml 11/12/24 06:24 11/17/24 12:19 Dextrose 50%-Water Inj 50 Ml Syringe IV 12/12/24 06:23 25 ml Q15MIN PRN Administration BG 50-70 responsive npo pt Dextrose 50 ml 11/12/24 06:24 11/18/24 18:50 Dextrose 50%-Water Inj 50 Ml Syringe IV 12/12/24 06:23 50 ml Q15MIN PRN Administration BG <50 OR BG <70 & pt unresponsive Famotidine 20 mg 11/11/24 09:00 11/19/24 08:43 Famotidine Inj 10 Mg/Ml Vial 2 Ml IVP 12/11/24 08:59 20 mg QDAY RAYO Administration Protocol Glucagon 1 mg 11/12/24 06:24 Glucagon Inj 1 Mg Vial IM Q15MIN PRN BG <70, and no IV access Haloperidol Lactate 5 mg 11/19/24 15:27 Haloperidol Lact Inj 5 Mg/Ml Vial IV 11/24/24 15:26 Q6HR PRN AGITATION (SEVERE) Heparin Sodium (Porcine) 5,000 unit 11/19/24 06:00 11/19/24 21:26 Heparin Sod Inj 5000 Unit/Ml Vial SC 12/03/24 05:59 5,000 unit Q8HR RAYO Administration Norepinephrine/Dextrose 8 mg in 250 mls @ 6.476 mls/hr 11/11/24 16:05 11/19/24 10:47 Levophed In D5w 8mg/250ml IV 12/11/24 16:04 0 mcg/kg/min .Q24H PRN 0 mls/hr PER PROTOCOL Titration Protocol 0.05 MCG/KG/MIN Albumin Human 25 gm in 100 mls @ 100 mls/min 11/14/24 08:47 11/14/24 18:41 Albuminar-25 Ivpb IV Infused PRN PRN Infusion DIALYSIS Propofol 1,000 mg in 100 mls @ 2.13 mls/hr 11/18/24 20:25 11/19/24 10:27 Diprivan Ivpb IV 12/18/24 20:24 0 mcg/kg/min .Q24H PRN 0 mls/hr PER PROTOCOL Titration Protocol 5 MCG/KG/MIN Dexmedetomidine/Sodium Chloride 400 mcg in 100 mls @ 3.375 mls/hr 11/18/24 20:27 11/19/24 22:00 Precedex Ivpb IV 12/13/24 09:42 1.4 mcg/kg/hr .Q24H PRN 23.625 mls/hr Per PROTOCOL Titration Protocol 0.2 MCG/KG/HR Fentanyl Citrate 2,500 mcg in 250 mls @ 2.5 mls/hr 11/18/24 20:27 11/19/24 12:19 Sublimaze Inj 2,500 Mcg/250 Ml Bag IV 11/22/24 16:07 Infused .Q24H PRN Titration PER PROTOCOL Protocol 25 MCG/HR Labetalol HCl 20 mg 11/19/24 14:42 Labetalol Inj 5 Mg/Ml Vial 20 Ml IVP 12/19/24 17:59 Q4HR PRN hypertension Magnesium Hydroxide 30 ml 11/16/24 10:08 11/16/24 10:46 Milk Of Magnesia Susp 30 Ml Udc PO 12/16/24 10:07 30 ml QDAY PRN Administration CONSTIPATION Protocol Metoprolol Tartrate 25 mg 11/14/24 11:30 11/19/24 20:14 Metoprolol Tartrate 25 Mg Tablet NG 12/14/24 11:29 25 mg BID RAYO Administration Midodrine 10 mg 11/11/24 22:00 11/19/24 21:25 Midodrine 5 Mg Tablet NG 12/11/24 21:59 10 mg TID RAYO Administration Ondansetron HCl 4 mg 11/11/24 05:17 Ondansetron Inj 2 Mg/Ml Inj 2 Ml IVP 12/11/24 05:16 Q6H PRN NAUSEA OR VOMITING Protocol Pharmacy Consult 1 each 11/11/24 05:27 Pharmacy Renal Dose Adjustment 1 Ea XX 12/11/24 05:26 PRN PRN CONSULT Sacubitril/Valsartan 1 tab 11/18/24 11:15 11/19/24 20:14 Sacubitril 24 Mg/Valsartan 26 Mg Tablet PO 12/18/24 11:14 1 tab BID RAYO Administration Sevelamer Carbonate 0.8 gm 11/14/24 08:00 11/19/24 18:35 Sevelamer Carbonate 0.8 Gm Packet (Non-Formulary) NG 12/14/24 07:59 0.8 gm TIDWM RAYO Administration Sodium Chloride 3 ml 11/11/24 04:43 Sodium Chloride Rt Poonam 0.9% 3 Ml Nebu INH 12/11/24 04:42 PRN PRN SOLN Plan The patient is a 74-year-old female with significant past medical history of CHF, coronary artery disease with multiple MIs s/p stents, COPD on 3 L home oxygen, ESRD on hemodialysis, Thursday, Thursday, , Thursday, A-fib with pacemaker, brought in by EMS with chief complaint of acute SOB. The patient was intubated and admitted to ICU for further management of acute hypoxic hypercapnic respiratory failure secondary to COPD exacerbation. Neuro: #Acute encephalopathy - Patient was noted to have encephalopathy due to CO2 narcosis at the time of admission, later CO2 narcosis resolved with mechanical ventilation - Patient was extubated as of 11/16/2024, but still appears to be altered and delirious, thinking that someone is trying to kill her, Likely due to hospital induced delirium - On 11/17/2024, around 1:30 PM, patient developed acute respiratory failure with worsening of the mental status for which patient was reintubated again and kept on mechanical ventilator Plan - Will continue Precedex drip and fentanyl CVS: # CAD s/p multiple stents # S/p ICD # HFrEF, EF 30% in 2024 2/ Ischemic cardiomyopathy - Though patient presented with acute SOB, was found to have BNP 2000, no JVD or peripheral edema noted - EKG showed paced rhythm with ST elevation in 1, aVL and reciprocal depressions in 2, 3 and aVF suggestive of old [place] - ECHO on 11/16/2024 - Findings are consistent with ischemic cardiomyopathy severe LV dysfunction heavy mitral annulus calcification calcification mitral apparatus with moderate to severe mitral stenosis and mild mitral regurgitation. No evidence of significant pulmonary hypertension. Plan - Low-sodium diet - Fluid restriction to 1500 cc daily - Talked to life enrichment assistant, Dr. Escudero about the EKG findings and he recommended that ST elevations are from old [place] - Patient had history of NSTEMI in September, but rejected cardiac catheterization at that time, patient might be having ongoing ischemia due to which patient is having multiple episodes of SVT/VT - Planned to do cardiac catheterization on 11/16/2024 but not done at that time. - Cardiac catheterisation is done on 11/18/2024 and found to LMCA 80% occlusion with severe mitral valve calcification - Started on GDMT - Metoprolol 25mg twice daily and Entresto 24/26 twice daily #Episode of SVT/VT 11/13/2024 Patient was given adenosine 6 mg IV x1, metoprolol 5 mg IV x1, diltiazem 10 mg IV x1 with conversion On 11/15/2023, when trying to wean patient off the sedation and kept on pressure support mode, patient became more agitated and developed multiple episodes of SVT and VT Plan - Continuous telemetry - Keep sedated overnight - Started on metoprolol tartarate 25mg twice daily through OG tube - Patient is using amiodarone 200 mg twice daily at home, as patient developed recurrent episodes of SVT/VT, started on amiodarone drip on 11/14/2024, and transition to oral amiodarone but as of 11/16/2024, patient was noted to have multiple episodes of SVT, VT which was also confirmed by ICD interrogation and patient noted to receive shock. As the patient is continuously developing episodes of SVT/VT, patient was given amiodarone bolus followed by drip. # History of atrial fibrillation Patient never had documented episodes of atrial fibrillation but on pacemaker tracing, noted to have atrial fibrillation for which patient was started on amiodarone and Eliquis - Patient is using Eliquis at home - Currently on amiodarone 200mg twice daily through OG tube. # NSTEMI, likely type II Troponin is mildly elevated at the time of admission, 0.046 uptrended to 4.000, later downtrended Though EKG showed changes of ST elevation, they are likely from the old [place] - Will continue telemetry monitoring - Loading dose Plavix given 300 mg x1 - Started on Plavix 75 mg qday, discontinued as patient does not have ongoing CAD - Will continue Aspirin 81mg once daily - Following with Cardiology, Dr. Escudero Pulmonology: #Acute hypoxic hypercapnic respiratory failure 2/2 #COPD exacerbation, resolved #Pulmonary edema Likely in the setting of worsening disease or superimposed bacterial infection and pulmonary edema in the setting of ESRD, Ongoing ischemic heart disease -Patient is a initially intubated on 11/11/2024 in view of acute hypoxic hypercapnic respiratory failure secondary to COPD exacerbation and pulmonary edema in the setting of CAD and ESRD - Patient is extubated on 11/16/2024 and is stable till 11/17/2024. Around 1:30 PM on 11/17/2024, patient developed sudden acute respiratory failure likely secondary due to pulmonary edema, ongoing CAD and patient was reintubated at that time Diagnostic test: - Tested negative for influenza A, B and COVID-19 - ABG at the time of admission showed pH 7.14, pCO2 71, PaO2 116, bicarb 24, oxygen saturation 97. - Chest x-ray showed cardiomegaly, infiltrates more on the right basilar area. - Labs showed WBC 13.5 - Tested negative for influenza A and B, COVID-19 - Blood cultures came back negative and 80 secretions came back positive for Acinetobacter Iwofii Treatment: - Patient is sedated, intubated and mechanically ventilated on 11/10/2024 - Received methylprednisolone 125 Mg IV x 1 in the ED - Started on methylprednisolone 60 Mg IV daily, completed 5 days on 11/14/2024 - Nebulizations every fourth of every, DuoNebs - Tried to wean the patient off ventilator on 11/13, 11/14 but noted to go to SVT and VT on both days. - Patient was extubated on 11/16/2024 and started on BiPAP and oxygen as needed and got reintubated on - Started on Unasyn as patient ET secretions culture tested positive for Acinetobacter Iwofii, stopped as of 11/18/2024 as patient completed 7 days course of antibiotics and no suspicion of active ongoing pneumonia GI: - No active problems Renal: #ESRD on HD -Patient is having 4 dialysis sessions per week At the time of admission, pH of 7.14, pCO2 71, lactic acid 4.1 Plan - Transportation Sales Consultant Dr. Mishra consulted, appreciate recommendations - Received HD session on 11/12/2024, 11/14/2024, 11/16/2024, 11/18/2024 - Will need HD as per her routine schedule - Will avoid nephrotoxic medications and renally dose medications - Needing vasopressor during the dialysis Hematology: #Leukocytosis, resolved Reactive versus steroid versus infective Secondary to pneumonia and COPD exacerbation - Continue to treat underlying cause #Normocytic anemia DDx: Inflammatory anemia due to chronic kidney disease, versus nutritional deficiency versus malabsorption - Workup as an outpatient basis - Later patient found to be having low hemoglobin, 6.7 likely due to blood loss from Right thigh hematoma from the procedure - Transfused 2PRBC as of 11/18/2024 during HD # Thrombocytopenia, resolving - At the time of admission is 177 - Patient is started on heparin drip on 11/13/2024 in view of suspected ongoing acute ischemic heart disease. - Since then, noted to have downtrend in platelet count - Platelet count as of 11/15/2024 is 97,000 and on 11/16/2024 is within normal limits -->11/17, [id number] ---> 11/18, 94,000 - Suspected HIT in the setting of heparin and thrombocytopenia, - HIT panel is sent, came back negative Plan - Will continue to monitor platelet count. ID: #Suspected community-acquired pneumonia - Antibiotic therapy treatment as above - ET secretions culture showed Acinetobacter for which Unasyn was started and stopped on 11/18/2024 Health maintenance: Dispo: ICU for further management of acute hypoxic hypercapnic respiratory failure secondary to COPD exacerbation, Pulmonary edema Diet: on OG tube feeds Lines: Left IJ central line, peripheral lines DVT prophylaxis: Heparin CODE STATUS: Full code Patient plan of care was discussed with the audiovisual equipment operator, Dr. Merritt. Elmer Husain, PGY2 Attending Provider Attestation/Addendum Patient seen and examined with resident team. In brief is a 74-year-old female who has an extensive cardiac history who is currently intubated for respiratory failure. Somebody who can give consent was found and consented for cardiac cath. Patient underwent cath and no visible cause for her is ischemia was found, there were no lesions that could be intervened on. She has extensive calcification of her left ventricle and it is felt that the scarring is what is causing her current irritability. She has recurrent SVT and VT which she shocked by her ICD. Given that this is secondary to the extensive scarring and heavy calcifications in her left ventricle this is not a problem which can be intervened on. And goals of care discussion should be held however there are no immediate family members available and it is a close friend who was able to give consent for the cardiac cath. She remains intubated and on mechanical ventilation. Will continue to try and find representation for the patient. She is end-stage renal disease on hemodialysis and did receive 2 units of PRBCs today for significant anemia. Case discussed with nephrology and ICU Discussed with cardiology Labs, imaging and records reviewed Approximately 40 critical care minutes required for evaluation, exam, review, intervention, discussion formulation of plan of care for this critically ill patient at high risk for further ongoing decompensation.
[2024-11-20] VITALS (104 sets, daily range): BP systolic 59–192; BP diastolic 40–113; PULSE 66–180; RESP 0–38; TEMP 36.6–37.1; O2SAT 94–100; BMI 26.6
[2024-11-20] MEDS: HALOPERIDOL LACT INJ 5 MG/ML VIAL IV ×2 (01:29→08:57)
[2024-11-20] MEDS: ALBUTEROL/IPRATROPIUM (Duoneb) RT SOL 3 ML NEBU INH ×6 (02:26→22:12)
[2024-11-20] MEDS: DEXMEDETOMIDINE 400 MCG IVPB 400 MCG/100 ML BAG 23.625 MCG IV ×2 (03:06→08:13)
--- NOTE | 2024-11-20 05:00 | XR_ITS ---
Examination examination: AP chest single view TECHNIQUE: AP portable semiupright chest single view Date and time: November 20, 2024, 0602 hours, comparison November 19, 2024 INDICATIONS: Difficulty breathing discrete hypoxic respiratory failure, pneumonia or ARDS pattern on imaging this week FINDINGS: Moderate enlargement cardiac contour. Prominent vascular congestion. Bibasilar opacity consistent with pneumonia. Orogastric tube in the stomach, the tip is below the level of the film. Left internal jugular central line tip SVC Endotracheal tube tip 7.4 cm above bam. Stable positioning cardiac leads. Prominent osteopenia IMPRESSION: Mild heart failure Bibasilar pneumonia
[2024-11-20 05:11] LABS: Base Excess 1 (-3-3); HCO3 25 mEq/L (20-26); Inspired Oxygen, FIO2 21 %; O2 Saturation 94 % (91-98); PCO2 38 mmHg (32.0-48.0); PO2 62 mmHg (83-108); pH, Arterial 7.43 (7.35-7.45)
[2024-11-20 05:16] LABS: Allen Test Performed/OK; Puncture Site Right Brachial
[2024-11-20] MEDS: HEPARIN SOD INJ 5000 UNIT/ML VIAL SC ×3 (05:17→21:04)
[2024-11-20 05:23] LABS: Basophils # (Auto) 0.0 Thou/mm3 (0.0-0.2); Basophils % (Auto) 0 % (0-2.5); Eosinophils # (Auto) 0.2 Thou/mm3 (0.0-0.5); Eosinophils % (Auto) 2 % (0-10); Hematocrit 28.0 % (36.0-46.0); Hemoglobin 9.2 g/dL (12.0-16.0); Immature Granulocytes Auto 0.07 Thou/mm3 (0.00-0.00); Lymphocytes # (Auto) 0.7 Thou/mm3 (1.0-4.8); Lymphocytes % (Auto) 7 % (10-50); Mean Corpuscular HGB Conc 32.9 g/dl (31.0-37.0); Mean Corpuscular Hemoglobin 29.3 pg (25.0-35.0); Mean Corpuscular Volume 89 fL (80-100); Monocytes # (Auto) 1.3 Thou/mm3 (0.0-0.8); Monocytes % (Auto) 13 % (0-12); Neutrophils # (Auto) 7.4 Thou/mm3 (1.8-7.7); Neutrophils % (Auto) 77 % (37-80); Nucleated Red Blood Cell # 0.02 Thou/mm3 (0.00-0.00); Nucleated Red Blood Cell % 0 /100 WBC (0); Platelet Count 111 Thou/mm3 (140-440); RDW Standard Deviation 56.9 fL (36.4-46.3); Red Blood Count 3.14 Miln/mm3 (4.00-5.20); White Blood Count 9.6 Thou/mm3 (3.6-11.0)
[2024-11-20 05:59] LABS: Alanine Aminotransferase < 7 U/L (10-49); Albumin, Serum 3.0 gm/dL (3.4-4.8); Albumin/Globulin Ratio 1.9 (1.2-2.2); Alkaline Phosphatase 86 U/L (46-116); Anion Gap 13 (7-16); Aspartate Amino Transferase 12 U/L (0-34); Bilirubin,Total 0.3 mg/dL (0.3-1.2); Blood Urea Nitrogen 32 mg/dL (9-23); Calcium 8.7 mg/dL (8.3-10.6); Calcium (Corrected) 9.5 mg/dL (8.5-10.1); Carbon Dioxide 24.7 mMol/L (20.0-31.0); Chloride 96 mMol/L (98-107); Globulin 1.6 gm/dL (2.3-3.5); Glucose 108 mg/dL (74-106); Magnesium 2.0 mg/dL (1.6-2.6); Osmolality,Calculated 276 (275-295); Potassium 3.9 mMol/L (3.4-5.1); Sodium 134 mMol/L (136-145); Total Protein 4.6 gm/dL (5.7-8.2)
[2024-11-20 06:08] LABS: BUN/Creatinine Ratio 7 Ratio (12-20); Creatinine (Component) 4.4 mg/dL (0.6-1.3); Estimated Creatinine Clearance 11.7 mL/min (>60); eGFR 10 See Note
[2024-11-20] MEDS: DEXTROSE 50%-WATER INJ 50 ML SYRINGE 25 ML IV (06:12)
[2024-11-20] MEDS: MIDODRINE 5 MG TABLET 10 MG NG ×3 (06:15→21:03)
[2024-11-20] MEDS: AMIODARONE HCL 200 MG TABLET NG ×2 (08:42→20:02)
[2024-11-20] MEDS: FAMOTIDINE INJ 10 MG/ML VIAL 2 ML 20 MG IVP (08:43)
[2024-11-20] MEDS: METOPROLOL TARTRATE 25 MG TABLET NG ×2 (08:43→20:02)
[2024-11-20] MEDS: ASPIRIN 81 MG CHEW NG (08:43)
[2024-11-20] MEDS: SEVELAMER CARBONATE 0.8 GM PACKET (NON-FORMULARY) NG ×2 (08:44→12:07)
--- NOTE | 2024-11-20 11:07 | ESPR_ITS ---
Documentation for date of: 11/20/24 Subjective Subjective Interval history: Reason for consult: ESRD, acute respiratory failure, need for dialysis History of present illness: Mierlla Grewal is a 74-year-old F with a PMH of CHF, coronary artery disease with multiple MIs s/p stents, COPD on 3 L home oxygen, ESRD on hemodialysis, Thursday, Thursday, , Thursday, and A-fib with pacemaker, who was brought in by EMS with a chief complaint of acute SOB. Per Internal Medicine team note, the patient called EMS due to SOB, and was saturating around 80% at home. She was given DuoNebs on the way to hospital and, when she presented to the ED, was saturating at 84% on high-flow CPAP. At this point, she was already altered, and was intubated. Internal Medicine team could not obtain further history due to patient already being intubated during their evaluation. Of note, patient has multiple prior hospitalizations for similar presentations of acute hypoxic respiratory failure including in November 2023 and September 2023. In the ED, vitals showed: BP 200/76 HR 79 RR 20 Temp 98.6 SpO2 84% on high flow CPAP, ED Course: CBC showed high WBC 13.5, and low Hgb 11.1 (MCV 96, RDW 63.4). Coagulation panel showed critically elevated D-dimer 2630 but was otherwise within normal limits. ABG showed normal pH 7.37, normal pCO2 42, normal PO2 97, and normal HCO3 24. CMP showed high BUN 39, critically elevated creatinine 6.4, critically low EGFR 6, high lactic acid 4.1, high blood glucose 184, low corrected calcium 7.7, c ritically elevated troponin I 0.046, critically elevated BNP 2005, high TSH 6.61, and low free T4 0.84. UA showed turbid orange urine with a basic pH of 8.0. It also showed 2+ urine protein, 2+ urine blood, high urine RBC 502, high urine WBC 1255, high urine squamous epithelial cells 29, but no urine bacteria. UDS was negative. Rapid RSV was negative. Imaging: Chest x-ray showed moderate congestive heart failure with prominent vascular congestion and perihilar basilar edema. Head CT was unremarkable. Chest CT showed bilateral thyroid nodules, mild heart failure with moderate enlargement of the cardiac contour, bibasilar pneumonia, numerous bilateral positioned metastatic pulmonary nodules, small bilateral pleural effusions, and cholelithiasis. EKG showed old AL. In the ED, patient was received methylprednisone 125 Mg IV x 1, bolus fluid 1 L at the rate 250 cc/h, cefixime 2 g IV x 1, and was started on vancomycin. The patient was intubated and admitted to ICU for further management of acute hypoxic hypercapnic respiratory failure secondary to COPD exacerbation. We, the nephrology team, were consulted for the patient's combined respiratory and metabolic acidosis and need for urgent hemodialysis due to ESRD status. Cardiology is also following. Interval History 11/16/2024: No overnight events. Patient seen and examined at bedside; she continues to be intubated and is unable to comment on her well-being or endorse new complaints or symptoms. Notable labs today include Hgb 9.0, APTT 66.7, blood pH 7.29, Na 127, Cl 88, BUN bump to 46 from 27, creatinine bump to 5.1 from 4.2, eGFR drop to 8 from 11, and phosphorus bump to 8.0 from 6.5. 11/16 CXR showed moderate heart failure with findings suggestive of superimposed pneumonia at the lung bases. Her abdomen also appears more distended today. Patient is having cardiac catheter performed by Dr. Escudero at 11:30 AM today with plans to extubate once the procedure is complete and patient is hemodynamically stable. From a nephrology standpoint, patient will be receiving HD today. 11/17/2024: No overnight events. Patient seen and examined at bedside; she is no longer intubated (extubated yesterday). Patient was awake and attempted to communicate with this typewriter repairer but her voice was very quiet, hoarse, and low so it was difficult to understand her. She seemed to want soap for her hand but this typewriter repairer was unable to tell for certain. Notable labs today include: Hgb 7.9, platelet count 104, APTT drop to 67.8 from 98.4, blood pH bump to 7.48 from 7.41, Na bump to 133 from 127, BUN drop to 30 from 46, creatinine drop to 3.9 from 5.1, eGFR bump to 12 from 8, and phosphorus drop to 5.7 from 8.0. Patient was scheduled for cardiac catheterization yesterday for her ischemic heart disease thought to be causing her recurrent SVT and VT (triggering ICD shocks) but this was canceled by cardiology. From nephrology's standpoint, we will hold off on hemodialysis for today. 11/18/2024: No overnight events. Patient seen and examined at bedside; she has been intubated once again due to agonal breathing and desaturations noted yesterday. Per cardiology, she continues to have recurrent episodes of V-tach and V-fib and the overall prognosis is poor. She also remains unable to provide consent for cardiac catheterization due to her incapacitation and lack of a living relative to provide consent on her behalf. A cardiac catheterization will be attempted if she becomes more stable and her pulmonary edema improves. Notable labs today include: Hgb 6.7, APTT 52.6, Na 130, BUN drop to 34 from 36, creatinine bump to 4.7 from 4.4, and phosphorus 6.2. Repeat CXR today shows [id number] heart failure, bibasilar pneumonia and/or pulmonary edema, and [id number] bilateral pleural effusions. From nephrology's standpoint, patient will be receiving HD w/ pRBC today. 11/19/2024: No overnight events. Patient seen and examined at bedside; they remain intubated today. Notable labs today include: Hemoglobin 10.0, platelet count 123, APTT drop to 29.2 from 52.6, BUN drop to 25 from 34, creatinine drop to 3.6 from 4.7, and phosphorus drop to 5.2 from 6.2. Consent for cardiac catheterization procedure was finally obtained from patient's close friend, and cardiac catheterization was performed by Dr. Escudero yesterday. After the procedure was completed, cardiology determined that there was no intervention they could do that could significantly ameliorate the patient's current critical condition. Cardiology currently recommends pure medical management and pursuit of comfort measures. From nephrology's standpoint, patient will be taking a break from hemodialysis today. 11/20/2024: Pt seen and examined in the ICU, pt is extubated with oxymask in place. Per conversation with Dr. Lopez, there is significant calcification on angiogram, and scarring. Cards reccomends medical management. BUN 32 from 25, Cr 4.4 from 3.6. pt is able to answer questions by shaking head and vocalizing. She is still on pressedex, plan to discuss code status with patient once she is alert and awake. No HD today Exam Vital Signs Temp Pulse Resp BP Pulse Ox O2 Del Method O2 Flow Rate 97.8 F 70 25 H 140/62 H 100 Mechanical Ventilation 10 11/20/24 04:00 11/20/24 09:39 11/20/24 09:39 11/20/24 08:43 11/20/24 09:39 11/20/24 04:00 11/20/24 09:39 FiO2 28 11/20/24 09:39 Narrative Exam General: extubated . pt is somnolent but answers questions, no acute distress. Skin: Some skin break down on LUE wrist fistula. Warm, dry. Head: Normocephalic, atraumatic. Eyes: EOMI, anicteric. Cardiovascular: Regular rate and rhythm, no murmur, no JVD or carotid bruits. +S1/S2. Respiratory: on oxymask, some trace crackles bilaterally, No accessory muscle use. Gastrointestinal: Soft, nontender, non distended no palpable masses. Extremities: Right hand and forearm appears bruised and swollen with gauze wrapped around it. Smaller area of bruising noted on left hand dorsum. RUE hand edema> LUE edema. warm to touch. 2+ dorsal pedalis, UE in restraints. Neuro: responds to questions. Objective Labs 11/20/24 04:43 11/20/24 04:43 Labs: Laboratory Results - last 24 hr 11/20/24 11/20/24 04:42 04:43 WBC 9.6 RBC 3.14 L Hgb 9.2 L Hct 28.0 L MCV 89 MCH 29.3 MCHC 32.9 RDW Std Deviation 56.9 H Plt Count 111 L Neut % (Auto) 77 Lymph % (Auto) 7 L [place] % (Auto) 13 H Eos % (Auto) 2 Baso % (Auto) 0 Neut # (Auto) 7.4 Lymph # (Auto) 0.7 L [place] # (Auto) 1.3 H Eos # (Auto) 0.2 Baso # (Auto) 0.0 Immature Gran # (Auto) 0.07 H Absolute Nucleated RBC 0.02 H Immature Gran % 1 H Nucleated RBC % 0 Puncture Site Right Brachial ABG pH 7.43 ABG pCO2 38 ABG pO2 62 L D ABG HCO3 25 ABG O2 Saturation 94 ABG Base Excess 1 FiO2 21 Sodium 134 L Potassium 3.9 Chloride 96 L Carbon Dioxide 24.7 Anion Gap 13 BUN 32 H Creatinine 4.4 H* D Estim Creat Clear Calc 11.7 L eGFR 10 L* BUN/Creatinine Ratio 7 L Glucose 108 H Calculated Osmolality 276 Calcium 8.7 Corrected Calcium 9.5 Magnesium 2.0 Total Bilirubin 0.3 AST 12 ALT < 7 L Alkaline Phosphatase 86 Total Protein 4.6 L Albumin 3.0 L Globulin 1.6 L Albumin/Globulin Ratio 1.9 ABG Interpretation ABG results: 11/11/24 11/11/24 11/12/24 04:01 07:38 04:55 ABG pH 7.14 L* 7.37 D 7.26 L D ABG pCO2 71 H* 42 D 44 ABG pO2 116 H 97 95 ABG HCO3 24 24 20 ABG O2 Saturation 97 99 H 98 ABG Base Excess -6 L -1 -7 L 11/12/24 11/13/24 11/14/24 07:35 04:13 04:35 ABG pH Cancelled 7.42 D 7.46 H ABG pCO2 Cancelled 48 40 ABG pO2 Cancelled 79 L 106 D ABG HCO3 Cancelled 31 H 29 H ABG O2 Saturation Cancelled 97 99 H ABG Base Excess Cancelled 6 H 4 H 11/15/24 11/16/24 11/16/24 04:58 05:20 11:55 ABG pH 7.47 H 7.29 L D 7.41 D ABG pCO2 39 51 H D 39 D ABG pO2 100 234 H D 160 H D ABG HCO3 29 H 24 24 ABG O2 Saturation 99 H 100 H 100 H ABG Base Excess 5 H -2 0 11/17/24 11/17/24 11/18/24 09:09 16:45 05:00 ABG pH 7.48 H 7.36 D 7.40 ABG pCO2 33 47 D 44 ABG pO2 132 H D 154 H D 203 H D ABG HCO3 25 27 H 27 H ABG O2 Saturation 101 H 100 H 101 H ABG Base Excess 1 1 2 11/19/24 11/20/24 04:14 04:42 ABG pH 7.41 7.43 ABG pCO2 43 38 ABG pO2 205 H 62 L D ABG HCO3 27 H 25 ABG O2 Saturation 101 H 94 ABG Base Excess 3 1 Quality Measures Quality Measures none Advance care planning discussed with:: patient Assessment & Plan Assessment Current Active Medications: Generic Name Dose Route Start Last Admin Trade Name Freq PRN Reason Stop Dose Admin Acetaminophen 650 mg 11/11/24 05:17 Acetaminophen 325 Mg Tablet PO 12/11/24 05:16 Q6H PRN Fever >100.5 Albuterol/Ipratropium 3 ml 11/11/24 07:00 11/20/24 09:38 Albuterol/Ipratropium (Duoneb) Rt Poonam 3 Ml Nebu INH 12/11/24 06:59 3 ml Q4HRRT RAYO Administration Amiodarone HCl 200 mg 11/18/24 09:00 11/20/24 08:42 Amiodarone Hcl 200 Mg Tablet NG 12/18/24 08:59 200 mg BID RAYO Administration Aspirin 81 mg 11/11/24 09:00 11/20/24 08:43 Aspirin 81 Mg Chew NG 12/11/24 08:59 81 mg QDAY RAYO Administration Atorvastatin Calcium 40 mg 11/11/24 21:00 11/19/24 20:14 Atorvastatin Calcium 20 Mg Tablet NG 12/11/24 20:59 40 mg HS RAYO Administration Bisacodyl 10 mg 11/16/24 10:09 11/16/24 10:44 Bisacodyl 10 Mg Supp SD 12/16/24 10:08 10 mg QDAY PRN Administration CONSTIPATION Protocol Dextrose 25 ml 11/12/24 06:24 11/20/24 06:12 Dextrose 50%-Water Inj 50 Ml Syringe IV 12/12/24 06:23 25 ml Q15MIN PRN Administration BG 50-70 responsive npo pt Dextrose 50 ml 11/12/24 06:24 11/18/24 18:50 Dextrose 50%-Water Inj 50 Ml Syringe IV 12/12/24 06:23 50 ml Q15MIN PRN Administration BG <50 OR BG <70 & pt unresponsive Famotidine 20 mg 11/11/24 09:00 11/20/24 08:43 Famotidine Inj 10 Mg/Ml Vial 2 Ml IVP 12/11/24 08:59 20 mg QDAY RAYO Administration Protocol Glucagon 1 mg 11/12/24 06:24 Glucagon Inj 1 Mg Vial IM Q15MIN PRN BG <70, and no IV access Haloperidol Lactate 5 mg 11/19/24 15:27 11/20/24 08:57 Haloperidol Lact Inj 5 Mg/Ml Vial IV 11/24/24 15:26 5 mg Q6HR PRN Administration AGITATION (SEVERE) Heparin Sodium (Porcine) 5,000 unit 11/19/24 06:00 11/20/24 05:17 Heparin Sod Inj 5000 Unit/Ml Vial SC 12/03/24 05:59 5,000 unit Q8HR RAYO Administration Norepinephrine/Dextrose 8 mg in 250 mls @ 6.476 mls/hr 11/11/24 16:05 11/20/24 05:00 Levophed In D5w 8mg/250ml IV 12/11/24 16:04 0 mcg/kg/min .Q24H PRN 0 mls/hr PER PROTOCOL Titration Protocol 0.05 MCG/KG/MIN Albumin Human 25 gm in 100 mls @ 100 mls/min 11/14/24 08:47 11/14/24 18:41 Albuminar-25 Ivpb IV Infused PRN PRN Infusion DIALYSIS Propofol 1,000 mg in 100 mls @ 2.13 mls/hr 11/18/24 20:25 11/19/24 10:27 Diprivan Ivpb IV 12/18/24 20:24 0 mcg/kg/min .Q24H PRN 0 mls/hr PER PROTOCOL Titration Protocol 5 MCG/KG/MIN Dexmedetomidine/Sodium Chloride 400 mcg in 100 mls @ 3.375 mls/hr 11/18/24 20:27 11/20/24 08:13 Precedex Ivpb IV 12/13/24 09:42 1.4 mcg/kg/hr .Q24H PRN 23.625 mls/hr Per PROTOCOL Administration Protocol 0.2 MCG/KG/HR Fentanyl Citrate 2,500 mcg in 250 mls @ 2.5 mls/hr 11/18/24 20:27 11/19/24 12:19 Sublimaze Inj 2,500 Mcg/250 Ml Bag IV 11/22/24 16:07 Infused .Q24H PRN Titration PER PROTOCOL Protocol 25 MCG/HR Labetalol HCl 20 mg 11/19/24 14:42 Labetalol Inj 5 Mg/Ml Vial 20 Ml IVP 12/19/24 17:59 Q4HR PRN hypertension Magnesium Hydroxide 30 ml 11/16/24 10:08 11/16/24 10:46 Milk Of Magnesia Susp 30 Ml Udc PO 12/16/24 10:07 30 ml QDAY PRN Administration CONSTIPATION Protocol Metoprolol Tartrate 25 mg 11/14/24 11:30 11/20/24 08:43 Metoprolol Tartrate 25 Mg Tablet NG 12/14/24 11:29 25 mg BID RAYO Administration Midodrine 10 mg 11/11/24 22:00 11/20/24 06:15 Midodrine 5 Mg Tablet NG 12/11/24 21:59 10 mg TID RAYO Administration Ondansetron HCl 4 mg 11/11/24 05:17 Ondansetron Inj 2 Mg/Ml Inj 2 Ml IVP 12/11/24 05:16 Q6H PRN NAUSEA OR VOMITING Protocol Pharmacy Consult 1 each 11/11/24 05:27 Pharmacy Renal Dose Adjustment 1 Ea XX 12/11/24 05:26 PRN PRN CONSULT Quetiapine Fumarate 50 mg 11/20/24 21:00 Quetiapine Fumarate 25 Mg Tablet PO 12/20/24 20:59 HS RAYO Sacubitril/Valsartan 1 tab 11/18/24 11:15 11/20/24 08:42 Sacubitril 24 Mg/Valsartan 26 Mg Tablet PO 12/18/24 11:14 1 tab BID RAYO Administration Sevelamer Carbonate 0.8 gm 11/14/24 08:00 11/20/24 08:44 Sevelamer Carbonate 0.8 Gm Packet (Non-Formulary) NG 12/14/24 07:59 0.8 gm TIDWM RAYO Administration Sodium Chloride 3 ml 11/11/24 04:43 Sodium Chloride Rt Poonam 0.9% 3 Ml Nebu INH 12/11/24 04:42 PRN PRN SOLN Plan Mirella Grewal is a 74-year-old F with a PMH of CHF, coronary artery disease with multiple MIs s/p stents, COPD on 3 L home oxygen, ESRD on hemodialysis, Thursday, Thursday, , Thursday, and A-fib with pacemaker, who was brought in by EMS with a chief complaint of acute SOB. The patient was intubated and admitted to ICU for further management of acute hypoxic hypercapnic respiratory failure secondary to COPD exacerbation. cardiac cath was performed with significant calcifications, ekg st elevations are likely 2/2 to scaring. No HD today. Plan to discuss code status with patient once she is less sedated #Combined respiratory and metabolic acidosis #ESRD on HD (Thu/Thu/Thu/Thu) Admission ABG showed pH 7.14 and pCO2 71, elevated lactic acid 4.1 Admission creatinine 6.4 (baseline: possibly 4.8-4.9), BUN 39, eGFR 6 11/12/24: worsening kidney function and toxic buildup due to no HD yesterday, creatinine 7.9, BUN 61, K 6.8, phosphorus 7.8 11/12/24: received HD 11/13/24: Cr 4.8 from 7.9, BUN 42 from 61, K 5.6 from 6.8 (improved kidney function after 11/12 HD) 11/14/24: Cr 5.9 from 4.8, BUN 52 from 42, K 5.0 from 5.6, Hgb 9.5, Plt Count 106, ABG pH 7.46 from 7.42, phosphorus 7.4 from 5.8 11/15/24: Cr 4.8 from 5.9, BUN 27 from 52, K 4.3, BP soft 90s /40s 11/16/24: Cr 4.2 from 5.1, BUN 46 from 27, K 4.6, last BP at 12:14 was 94/44 11/17/24: Cr 3.9 from 5.1, BUN 30 from 46 11/18/24: Cr 4.7 from 4.4, BUN 34 from 36 11/20/24: Cr 4.4 from 4.7, BUN 32 from 34 Patient has a left-sided fistula and receives her HD on // Treatment Plan -No HD today -Strict I's & O's -Avoid nephrotoxic medications 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, requires vascular surgery follow up Fistula remains patent and thrill is palpable Treatment Plan -Follow-up with vascular surgery -Continue to monitor #Acute hypoxic respiratory failure - extubated, on oxymask #CAP #Possible CHF exacerbation, likely 2/2 volume overload in the setting of ESRD #Pleural Effusion Critically elevated BNP 2005 with elevated troponin I 0.046 CXR showed moderate congestive heart failure with prominent vascular congestion and perihilar basilar edema Chest CT showed mild heart failure with moderate enlargement of the cardiac contour with small bilateral pleural effusions 11/13 CXR showed bibasilar pneumonia with significant RLL consolidation 11/13 EKG showed a change from sinus rhythm to atrial fibrillation with intermittent pacemaker rhythm 11/14 troponin downtrended to 3.023 from 4.088 Treatment Plan -Continue management per primary care team #SVT #Recurrent Tachyarrythmia -s/p angiogram, significant calcifications #Hx of A-fib, on Eliquis and s/p pacemaker Treatment Plan -Continue management per cardiology recommendations -Continue management per primary care team #Electrolyte abnormalities #Hypocalcemia, likely 2/2 ESRD status (resolving) #Mild hyponatremia #Hypochloremia Treatment Plan -Continue NG calcium carbonate BID per primary care team -Monitor electrolyte levels, correct as needed -Continue Veltassa to treat possible hyperkalemia -Continue sevelamer to treat possible hyperphosphatemia #Normocytic anemia, likely 2/2 ESRD status #Thrombocytopenia Admission Hgb 11.1 (MCV 96, RDW 63.4) 11/12/24: Hgb dropped to 10.0 -s/p Epoetin 10,000 U x1 11/14/24: Hgb 9.5, platelet count down to 106 from 134 11/16/24: Hgb 9.0 11/17/24: Hgb 7.9 11/20/24: Hgb 9.2 Treatment Plan -Monitor H&H, transfuse if Hgb<7 #Other medical problems #Acute encephalopathy likely 2/2 CO2 narcolepsy in the setting of COPD exacerbation #Acute hypoxic hypercapnic respiratory failure likely 2/2 CHF exacerbation vs. COPD exacerbation vs. both #COPD exacerbation #Community-acquired pneumonia #Leukocytosis- downtrending #CAD s/p stents Treatment Plan -Continue management per primary care team Plan discussed with nephrology attending Dr. Danica Bateman MD Internal Medicine PGY-1 Attending Provider Attestation/Addendum Patient seen and examined with resident physician Dr. Bateman. Note reviewed, agree with findings and recommendations. Patient currently seen in ICU. On ventilator. Reintubated for acute hypoxic respiratory failure--was extubated now. Patient with arrhythmias and ICD shocks. Dr. Luo did angiogram and noted significant calcification in all the blood vessels including heavy calcification in the mitral valve and the left ventricle completely calcified. Unfortunately cannot fix the problem. No family around to make any medical decisions. Hold dialysis today. Despite daily dialysis patient goes into fluid overload due to heart problems. Critical care spent more than 35minutes regarding plan of care and disease management. No POA identified. Spoke to ICU team, Dr. Merritt, Dr. Luo Prognosis remains poor. She is more alert and awake today. Agreed with no resuscitation,no intubation. Will request for signature once she is more lucid.
--- NOTE | 2024-11-20 11:16 | XR_ITS ---
Examination: AP chest single view Technique one AP portable semiupright chest single view Date and time: November 20, 2024 1125 hrs., Comparison November 20, 2024 Indications: Hypoxic respiratory failure, heart failure pneumonia on earlier chest imaging. Findings: Moderate enlargement cardiac contour with prominent vascular congestion Edema and/or pneumonia at the lung bases Orogastric tube in the stomach Cardiac leads satisfactory position Left internal jugular central line tip satisfactory position Impression: Mild heart failure Edema and/or pneumonia at the lung bases
--- NOTE | 2024-11-20 12:34 | ESPR_ITS ---
Documentation for date of: 11/20/24 Subjective Subjective Interval history: The patient is a 74-year-old female with significant past medical history of CHF, coronary artery disease with multiple MIs s/p stents, COPD on 3 L home oxygen, ESRD on hemodialysis, Thursday, Thursday, , Thursday, A-fib with pacemaker, brought in by EMS with chief complaint of acute SOB. The patient called EMS due to SOB, and she was saturating on 80s at her home. She was given DuoNeb on the way to hospital, and when she presented to ED, her saturation was 84 on high flow CPAP. She was already altered, and was intubated. Further history were unobtainable, as patient was already intubated during my evaluation. In the ED her vitals were significant for a blood pressure of 200/76, pulse 79, RR 20, labs are significant for white count 13.5, RBC 3.88, hemoglobin 11.1, D- dimer 2630, ABG revealed pH of 7.14, pCO2 71, pO2 116, bicarb 24, sodium 135, potassium 4.6, BUN 39, creatinine 6.4, lactic acid 4.1, corrected calcium 7.7, magnesium 2.2, AST/ALT/ALP less than 10, less than 10/05/2027 respectively. Ammonia was 17, troponin 0.046, CRP less than 0.5, BNP 2006, lipid panel revealed LDL 116, lipase 68, TSH 6.61, free T4 0.84. UA revealed orange urine, 2+ protein, 2+ blood, leukocyte Estrace positive, RBC 502, WBC 1255, chest x-ray revealed right lower lobe pneumonia, EKG revealed old IL. The patient received methylprednisone 125 Mg IV x 1, bolus fluid 1 L at the rate 250 cc/h, cefixime 2 g IV x 1, and started on vancomycin. The patient was intubated and admitted to ICU for further management of acute hypoxic hypercapnic respiratory failure secondary to COPD exacerbation. 11/11/2024: Patient is sedated and on mechanical ventilator. Most of the history is taken from the chart review and from the nurse at the bedside. Patient supposedly lives alone and developed shortness of breath, for which she called the EMS. By the time EMS went her home she was severely short of breath for which she was given DuoNebs and was kept on CPAP following which she was brought to the hospital where she was given steroids, sedated and intubated. Later central line was placed. No acute overnight events. Vitals are stable and patient is on propofol and fentanyl drip without any vasopressor support. Started on methylprednisolone 60 Mg IV once daily, ceftriaxone and azithromycin. Repeat ABG after the intubation is within normal limits. Will continue mechanical ventilation for now and monitor the patient. Later in the evening, patient is found to be mildly hypotensive for which low-dose Levophed was started and patient was given a dose of midodrine 10 Mg through orogastric tube. 11/12/2024: Patient is seen and examined at bedside in the ICU. No acute overnight events. Sedated and on mechanical ventilator, VC/AC mode with tidal volume 380, PEEP 5, FiO2 30% and saturating around 95%. Vitals are stable and patient is mildly hypotensive, started on Levophed which was stopped around 7 AM this morning, maintain blood pressures only on minimal doses of Levophed 0.05 mcg/kg/min. Labs done this morning showed mild leukocytosis, sodium 131, potassium 5.5, BUN 61, creatinine 7.9, bicarb 19.2, phosphorus 7.8. ABG showed metabolic acidosis Patient missed her dialysis session yesterday which was started this morning and Levophed is restarted to support the blood pressure during dialysis. Tolerated dialysis well on 2 L of fluid is taken. Patient was changed from VC/AC mode to pressure support mode. Will repeat ABG tomorrow morning and if patient is hemodynamically stable, able to respond after weaning of the sedation, planning to wean her off the mechanical ventilator. 11/13/2024: Patient seen this morning, at a RASS of 0 able to follow commands well, interactive and trying to communicate. Initially plan was to extubate today. Later that morning around 9:40 am patient appeared anxious and went into SVT rate up to 180s with hypoxia in the 70s while on pressure support. Patient was switched back to AC/VC on 100% FiO2. Patient was given metoprolol tartrate 5 mg IV x1, adenosine 6 mg IV x1, furosemide 40 mg IV x1, diltiazem 10 mg IV x1, and midazolam 1 mg IV x1, after which patient had resolution of heart rate and rhythm. Patient was then placed on Precedex drip. Will keep patient sedated overnight and try for extubation tomorrow. Started Veltassa for hyperkalemia, follow up potassium levels. Patient will have dialysis tomorrow. Troponin was repeated in the afternoon which was elevated at 4.088 therefore Plavix loading dose was given 300 mg x1 followed by 75 mg qday and heparin drip was started after discussed with Dr. Escudero. 11/14/2024: Patient is seen and examined at bedside in the ICU. Initial plan was to extubate patient this morning but after decreasing the sedation, patient became more interactive and is trying to communicate with the hand gestures and trying to speak. Patient was kept on pressure support mode and she was tolerating it well. Later suddenly noted multiple episodes of SVT and VT. Patient was given 300 mg bolus of amiodarone and was started on amiodarone drip. Later no further episodes of arrhythmias were noted during the day. Patient was kept back on the VC/AC mode. Consulted loop machine operator, Dr. Escudero who is following the patient, recommended that he will do cardiac cath on 11/16/2024. So we will plan to extubate patient once the cardiac cath is done as patient is going into arrhythmias whenever trying to wean her off the sedation and extubate. Patient is taking metoprolol 25 mg twice daily at home. Echocardiogram done on 11/13/2024 showed EF of 30%. So resumed metoprolol to tartrate 25 mg twice daily. Will continue telemetry monitoring 11/15/2024: Patient is seen and examined at bedside in the ICU. No acute overnight events. No further episodes of SVT and VT noted. Patient continued to be on the amiodarone drip and heparin drip. Pending cardiac cath tomorrow around 11:[address] Escudero. Noted to have mild respiratory alkalosis for which respiratory rate is decreased from 20-18. Labs done this morning showed thrombocytopenia, 97,000. As patient is on heparin drip and also noted to have downtrending platelet count since the start of heparin drip, will do workup for heparin- induced thrombocytopenia. Will keep patient on n.p.o. since midnight. Transition to oral amiodarone 200 mg twice daily based on Dr. Escudero's recommendations. Will stop heparin drip around 1 hour before the cardiac catheterization. Talked to her friend who is the point of contact who gave consent for the cardiac catheterization and also patient when she is awake she wrote down on the patient that she wants to undergo cardiac catheterization. Planning to extubate once cardiac catheterization is done if the patient is hemodynamically stable.Will continue to monitor platelet count and discontinue heparin drip of the platelet counts downtre 11/16/2024: Patient is seen and examined at bedside in the ICU. No acute overnight events. Patient is noted to be agitated overnight for which she was kept on high doses of fentanyl and Precedex. Otherwise patient is doing good and ABG done this morning showed mild respiratory acidosis. Patient was supposed to get cardiac cath today but the procedure is postponed for now. As patient is hemodynamically stable and is on minimal requirement of FiO2, planned to extubate. Patient was started on pressure support and titrated to wean her off sedation. Patient tolerated pressure support well and passed spontaneous breathing trial following which patient was extubated on 11/16/2024 around 10:20 AM. Patient is extubated to BiPAP. Later patient was noted to have multiple episodes of short lasting SVT and VT for which a dose of metoprolol 5 mg and Haldol, Seroquel is given as patient appears to be delirious and continuously got agitated saying that someone is trying to kill her. Patient was restarted on Precedex. Around 3 PM patient was started on the dialysis during which she needed vasopressor support for shock. ABG done after extubation is within normal limits. Patient was weaned off the BiPAP and kept on the oxy mask. Patient continued to develop SVT and bradycardia episodes for which patient was given amiodarone 150 mg bolus and started on drip. Customer Advocacy Manager, Dr. Escudero is following the patient and recommended to continue drip. ICD interrogation was done and showed multiple episodes of VT for which shock was delivered. Found to have Acinetobacter Iwofii on sputum culture for which patient was started on Unasyn 11/17/2024: Patient is seen and examined at bedside in the ICU. Overnight, patient was noted to have episodes of SVT and VT for which patient was given a dose of metoprolol 5 mg and in the view of agitation, patient also received 1 dose of olanzapine. At the time of examination in the morning, patient is able to answer some questions but still delirious and confused. Vitals are stable and patient is on OxyMask. Labs done this morning showed hemoglobin 7.9, platelets 104, sodium 133, potassium 3.6, BUN 30, creatinine 3.9. Patient was given a dose of 20 mill equivalents of IV potassium in view of continuous arrhythmias. Around 1:30 PM, patient was noted to have altered sensorium with difficulty breathing for which patient was kept on BiPAP despite which the saturations are low around 80s for which patient was intubated and kept on mechanical ventilator. A dose of labetalol 10 mg is given at the time in view of high blood pressures and suspected pulmonary edema. Will continue amiodarone, heparin drip. Repeat CBC, CMP, lactate and procalcitonin, ABG is ordered. 11/18/2024: Patient is seen and examined at the bedside in the ICU. Overnight, patient found to be agitated and was started on fentanyl drip. Vitals are stable and noted to have no episodes of SVT/VT. Vitals are stable. On physical examination, patient noted to have oozing from right upper extremity. Noted no bowel movements since the time of admission despite edema, milk of mag and senna. Labs done this morning showed hemoglobin of 6.7, likely acute blood loss from the right thigh hematoma. Patient got her regular HD today with 2 units of PRBC transfusion with 3 L of fluid removal. Customer Advocacy Manager, Dr. 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 Patient found to have episodes of VT in the cardiac Car Detailer for which patient was given 2 shocks following which converted to normal sinus rhythm. Heparin drip was stopped and patient was transferred back to the ICU. No further episodes of VT was noted. Planning to start lidocaine drip the patient continues to have recurrent persistent VT. Goals of care discussion are done with the point of contact, siria and explain her but patient's current condition and her prognosis. The the point of contact, Siria is willing to keep her on comfort measures as her medical conditions are addressed and noted to have poor prognosis but she is concerned about the lability issues. will have a goals of care discussions again tomorrow with social contact worker. 11/19/2024: Patient is seen and examined at bedside in the ICU. Overnight, patient was found to have an SVT episode for which a dose of metoprolol 2.5 mg is given and no other significant events. Vitals are stable and patient is on low-dose Levophed and sedation. Vitals are stable. On physical examination, patient appears to respond to verbal commands and able to follow commands, patient is trying to communicate. On physical examination, noted to have abdominal distention and patient had no bowel movement since the time of admission. Labs done this morning showed hemoglobin 10, platelets 123, BUN 25, creatinine 3.6, phosphorus 5.2, albumin 3. Patient was started on 45 g of lactulose every fourth hourly following which patient had 2 large bowel movements. As patient is able to follow commands, started on pressure support and patient is tolerating well. If patient is hemodynamically stable and passes SBT, plan to extubate tomorrow after having goals of care discussion. Hemodialysis is held for today. 11/20/2024: Patient was extubated successfully today to OxyMask, saturated well on 6L and calm, able to respond to questions. Patient decided to change code status to DNR/DNI, expressed to multiple providers including Dr. Mishra, Dr. Merritt, and myself. Code status changed in chart. Patient expressed I want to go home. Today patient had multiple further episodes of SVT/VT, during SVT vagal maneuvers were unsuccessful therefore was given pushes of metoprolol tartrate 5 mg IV. She was given a total of 4 throughout the day. Also given diltiazem 10 mg IV x1. She continues on amiodarone 200 mg BID and metoprolol tartrate 25 mg BID through the NG tube. During a few seconds of VT, tele strip does seen to indicate that the patient was shocked once. Plan is to manage the episodes symptomatically, and provide pushes of antipsychotics or pain medication as needed if patient is anxious or uncomfortable. Exam Vital Signs Temp Pulse Resp BP Pulse Ox O2 Del Method O2 Flow Rate 98.0 F 71 25 H 126/59 L 100 Aerosol Mask 3 11/20/24 08:00 11/20/24 12:12 11/20/24 12:12 11/20/24 11:15 11/20/24 12:12 11/20/24 09:27 11/20/24 12:12 FiO2 28 11/20/24 09:39 Narrative Exam General: Patient is awake, alert, calm, and somewhat conversational. HEENT: Normocephalic, atraumatic, mucous membranes moist. Heart: regular rate and rhythm, no murmurs. Lungs: Clear to auscultation with no wheezing or crackles. Abdomen: Soft, nondistended, nontender, positive bowel sounds. ?No guarding or rebound tenderness. Neurologic: Alert and oriented x3, moving all 4 extremities spontaneously, no focal neurologic deficits. Extremities: Significant bilateral nonpitting upper extremity edema. Left AV fistula noted. 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 Right upper extremity swelling and oozing noted from that site Skin: No rash. Ecchymotic patches noted on right arm and at the site of IV catheters. Objective Labs 11/21/24 05:39 11/21/24 05:39 Labs: Laboratory Results - last 24 hr 11/20/24 11/20/24 04:42 04:43 WBC 9.6 RBC 3.14 L Hgb 9.2 L Hct 28.0 L MCV 89 MCH 29.3 MCHC 32.9 RDW Std Deviation 56.9 H Plt Count 111 L Neut % (Auto) 77 Lymph % (Auto) 7 L [place] % (Auto) 13 H Eos % (Auto) 2 Baso % (Auto) 0 Neut # (Auto) 7.4 Lymph # (Auto) 0.7 L [place] # (Auto) 1.3 H Eos # (Auto) 0.2 Baso # (Auto) 0.0 Immature Gran # (Auto) 0.07 H Absolute Nucleated RBC 0.02 H Immature Gran % 1 H Nucleated RBC % 0 Puncture Site Right Brachial ABG pH 7.43 ABG pCO2 38 ABG pO2 62 L D ABG HCO3 25 ABG O2 Saturation 94 ABG Base Excess 1 FiO2 21 Sodium 134 L Potassium 3.9 Chloride 96 L Carbon Dioxide 24.7 Anion Gap 13 BUN 32 H Creatinine 4.4 H* D Estim Creat Clear Calc 11.7 L eGFR 10 L* BUN/Creatinine Ratio 7 L Glucose 108 H Calculated Osmolality 276 Calcium 8.7 Corrected Calcium 9.5 Magnesium 2.0 Total Bilirubin 0.3 AST 12 ALT < 7 L Alkaline Phosphatase 86 Total Protein 4.6 L Albumin 3.0 L Globulin 1.6 L Albumin/Globulin Ratio 1.9 ABG Interpretation ABG results: 11/11/24 11/11/24 11/12/24 04:01 07:38 04:55 ABG pH 7.14 L* 7.37 D 7.26 L D ABG pCO2 71 H* 42 D 44 ABG pO2 116 H 97 95 ABG HCO3 24 24 20 ABG O2 Saturation 97 99 H 98 ABG Base Excess -6 L -1 -7 L 11/12/24 11/13/24 11/14/24 07:35 04:13 04:35 ABG pH Cancelled 7.42 D 7.46 H ABG pCO2 Cancelled 48 40 ABG pO2 Cancelled 79 L 106 D ABG HCO3 Cancelled 31 H 29 H ABG O2 Saturation Cancelled 97 99 H ABG Base Excess Cancelled 6 H 4 H 11/15/24 11/16/24 11/16/24 04:58 05:20 11:55 ABG pH 7.47 H 7.29 L D 7.41 D ABG pCO2 39 51 H D 39 D ABG pO2 100 234 H D 160 H D ABG HCO3 29 H 24 24 ABG O2 Saturation 99 H 100 H 100 H ABG Base Excess 5 H -2 0 11/17/24 11/17/24 11/18/24 09:09 16:45 05:00 ABG pH 7.48 H 7.36 D 7.40 ABG pCO2 33 47 D 44 ABG pO2 132 H D 154 H D 203 H D ABG HCO3 25 27 H 27 H ABG O2 Saturation 101 H 100 H 101 H ABG Base Excess 1 1 2 11/19/24 11/20/24 04:14 04:42 ABG pH 7.41 7.43 ABG pCO2 43 38 ABG pO2 205 H 62 L D ABG HCO3 27 H 25 ABG O2 Saturation 101 H 94 ABG Base Excess 3 1 Quality Measures Quality Measures none Advance care planning discussed with:: patient Assessment & Plan Assessment Current Active Medications: Generic Name Dose Route Start Last Admin Trade Name Freq PRN Reason Stop Dose Admin Acetaminophen 650 mg 11/11/24 05:17 Acetaminophen 325 Mg Tablet PO 12/11/24 05:16 Q6H PRN Fever >100.5 Albuterol/Ipratropium 3 ml 11/11/24 07:00 11/20/24 09:38 Albuterol/Ipratropium (Duoneb) Rt Poonam 3 Ml Nebu INH 12/11/24 06:59 3 ml Q4HRRT RAYO Administration Amiodarone HCl 200 mg 11/18/24 09:00 11/20/24 08:42 Amiodarone Hcl 200 Mg Tablet NG 12/18/24 08:59 200 mg BID RAYO Administration Aspirin 81 mg 11/11/24 09:00 11/20/24 08:43 Aspirin 81 Mg Chew NG 12/11/24 08:59 81 mg QDAY RAYO Administration Atorvastatin Calcium 40 mg 11/11/24 21:00 11/19/24 20:14 Atorvastatin Calcium 20 Mg Tablet NG 12/11/24 20:59 40 mg HS RAYO Administration Bisacodyl 10 mg 11/16/24 10:09 11/16/24 10:44 Bisacodyl 10 Mg Supp PA 12/16/24 10:08 10 mg QDAY PRN Administration CONSTIPATION Protocol Dextrose 25 ml 11/12/24 06:24 11/20/24 06:12 Dextrose 50%-Water Inj 50 Ml Syringe IV 12/12/24 06:23 25 ml Q15MIN PRN Administration BG 50-70 responsive npo pt Dextrose 50 ml 11/12/24 06:24 11/18/24 18:50 Dextrose 50%-Water Inj 50 Ml Syringe IV 12/12/24 06:23 50 ml Q15MIN PRN Administration BG <50 OR BG <70 & pt unresponsive Famotidine 20 mg 11/11/24 09:00 11/20/24 08:43 Famotidine Inj 10 Mg/Ml Vial 2 Ml IVP 12/11/24 08:59 20 mg QDAY RAYO Administration Protocol Glucagon 1 mg 11/12/24 06:24 Glucagon Inj 1 Mg Vial IM Q15MIN PRN BG <70, and no IV access Haloperidol Lactate 5 mg 11/19/24 15:27 11/20/24 08:57 Haloperidol Lact Inj 5 Mg/Ml Vial IV 11/24/24 15:26 5 mg Q6HR PRN Administration AGITATION (SEVERE) Heparin Sodium (Porcine) 5,000 unit 11/19/24 06:00 11/20/24 05:17 Heparin Sod Inj 5000 Unit/Ml Vial SC 12/03/24 05:59 5,000 unit Q8HR RAYO Administration Norepinephrine/Dextrose 8 mg in 250 mls @ 6.476 mls/hr 11/11/24 16:05 11/20/24 05:00 Levophed In D5w 8mg/250ml IV 12/11/24 16:04 0 mcg/kg/min .Q24H PRN 0 mls/hr PER PROTOCOL Titration Protocol 0.05 MCG/KG/MIN Albumin Human 25 gm in 100 mls @ 100 mls/min 11/14/24 08:47 11/14/24 18:41 Albuminar-25 Ivpb IV Infused PRN PRN Infusion DIALYSIS Propofol 1,000 mg in 100 mls @ 2.13 mls/hr 11/18/24 20:25 11/19/24 10:27 Diprivan Ivpb IV 12/18/24 20:24 0 mcg/kg/min .Q24H PRN 0 mls/hr PER PROTOCOL Titration Protocol 5 MCG/KG/MIN Dexmedetomidine/Sodium Chloride 400 mcg in 100 mls @ 3.375 mls/hr 11/18/24 20:27 11/20/24 12:09 Precedex Ivpb IV 12/13/24 09:42 0 mcg/kg/hr .Q24H PRN 0 mls/hr Per PROTOCOL Titration Protocol 0.2 MCG/KG/HR Fentanyl Citrate 2,500 mcg in 250 mls @ 2.5 mls/hr 11/18/24 20:27 11/19/24 12:19 Sublimaze Inj 2,500 Mcg/250 Ml Bag IV 11/22/24 16:07 Infused .Q24H PRN Titration PER PROTOCOL Protocol 25 MCG/HR Labetalol HCl 20 mg 11/19/24 14:42 Labetalol Inj 5 Mg/Ml Vial 20 Ml IVP 12/19/24 17:59 Q4HR PRN hypertension Magnesium Hydroxide 30 ml 11/16/24 10:08 11/16/24 10:46 Milk Of Magnesia Susp 30 Ml Udc PO 12/16/24 10:07 30 ml QDAY PRN Administration CONSTIPATION Protocol Metoprolol Tartrate 25 mg 11/14/24 11:30 11/20/24 08:43 Metoprolol Tartrate 25 Mg Tablet NG 12/14/24 11:29 25 mg BID RAYO Administration Midodrine 10 mg 11/11/24 22:00 11/20/24 06:15 Midodrine 5 Mg Tablet NG 12/11/24 21:59 10 mg TID RAYO Administration Ondansetron HCl 4 mg 11/11/24 05:17 Ondansetron Inj 2 Mg/Ml Inj 2 Ml IVP 12/11/24 05:16 Q6H PRN NAUSEA OR VOMITING Protocol Pharmacy Consult 1 each 11/11/24 05:27 Pharmacy Renal Dose Adjustment 1 Ea XX 12/11/24 05:26 PRN PRN CONSULT Quetiapine Fumarate 50 mg 11/20/24 21:00 Quetiapine Fumarate 25 Mg Tablet PO 12/20/24 20:59 HS RAYO Sacubitril/Valsartan 1 tab 11/18/24 11:15 11/20/24 08:42 Sacubitril 24 Mg/Valsartan 26 Mg Tablet PO 12/18/24 11:14 1 tab BID RAYO Administration Sevelamer Carbonate 0.8 gm 11/14/24 08:00 11/20/24 12:07 Sevelamer Carbonate 0.8 Gm Packet (Non-Formulary) NG 12/14/24 07:59 0.8 gm TIDWM RAYO Administration Sodium Chloride 3 ml 11/11/24 04:43 Sodium Chloride Rt Poonam 0.9% 3 Ml Nebu INH 12/11/24 04:42 PRN PRN SOLN Plan The patient is a 74-year-old female with significant past medical history of CHF, coronary artery disease with multiple MIs s/p stents, COPD on 3 L home oxygen, ESRD on hemodialysis, Thursday, Thursday, , Thursday, A-fib with pacemaker, brought in by EMS with chief complaint of acute SOB. The patient was intubated and admitted to ICU for further management of acute hypoxic hypercapnic respiratory failure secondary to COPD exacerbation. Neuro: #Acute encephalopathy - resolved - Patient was noted to have encephalopathy due to CO2 narcosis at the time of admission, later CO2 narcosis resolved with mechanical ventilation - Patient was extubated as of 11/16/2024, but still appears to be altered and delirious, thinking that someone is trying to kill her, Likely due to hospital induced delirium - On 11/17/2024, around 1:30 PM, patient developed acute respiratory failure with worsening of the mental status for which patient was reintubated again and kept on mechanical ventilator - 11/20/2024 patient was extubated and weaned off Precedex, doing well and calm Plan - Frequent reorientation, natural light, encourage movement, avoid delirium CVS: # CAD s/p multiple stents # S/p ICD # HFrEF, EF 30% in 2024 2/ ischemic cardiomyopathy - Though patient presented with acute SOB, was found to have BNP 1999, no JVD or peripheral edema noted - EKG showed paced rhythm with ST elevation in 1, aVL and reciprocal depressions in 2, 3 and aVF suggestive of old IL - ECHO on 11/16/2024 - Findings are consistent with ischemic cardiomyopathy severe LV dysfunction heavy mitral annulus calcification calcification mitral apparatus with moderate to severe mitral stenosis and mild mitral regurgitation. No evidence of significant pulmonary hypertension. - Talked to loop machine operator, Dr. Escudero about the EKG findings and he recommended that ST elevations are from old IL and scarring - Patient had history of NSTEMI in September, but rejected cardiac catheterization at that time, patient might be having ongoing ischemia due to which patient is having multiple episodes of SVT/VT - Planned to do cardiac catheterization on 11/16/2024 but not done at that time. 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 with severe mitral valve calcification Plan - Low-sodium diet - Fluid restriction to 1500 cc daily - Continue on GDMT - Metoprolol 25 mg twice daily and Entresto 24/26 mg twice daily #Episode of SVT/VT 11/13/2024 Patient was given adenosine 6 mg IV x1, metoprolol 5 mg IV x1, diltiazem 10 mg IV x1 with conversion On 11/15/2023, when trying to wean patient off the sedation and kept on pressure support mode, patient became more agitated and developed multiple episodes of SVT and VT Patient has received amiodarone drip loading bag course x3 Plan - Continuous telemetry - Continue amiodarone 200 mg BID - Continue metoprolol tartarate 25mg twice daily through OG tube - Patient is using amiodarone 200 mg twice daily at home, as patient developed recurrent episodes of SVT/VT, started on amiodarone drip on 11/14/2024, and transition to oral amiodarone but as of 11/16/2024, patient was noted to have multiple episodes of SVT, VT which was also confirmed by ICD interrogation and patient noted to receive shock. As the patient is continuously developing episodes of SVT/VT, patient was given amiodarone bolus followed by drip. # History of atrial fibrillation Patient never had documented episodes of atrial fibrillation but on pacemaker tracing, noted to have atrial fibrillation for which patient was started on amiodarone and Eliquis - Patient is using Eliquis at home - Currently on amiodarone 200mg twice daily through OG tube. # NSTEMI, likely type II Troponin is mildly elevated at the time of admission, 0.046 uptrended to 4.000, later downtrended Though EKG showed changes of ST elevation, they are likely from the old IL - Will continue telemetry monitoring - Loading dose Plavix given 300 mg x1 - Started on Plavix 75 mg qday, discontinued as patient does not have ongoing CAD - Will continue Aspirin 81mg once daily - Following with Cardiology, Dr. Escudero Pulmonology: #Acute hypoxic hypercapnic respiratory failure 2/ #COPD exacerbation, resolved #Pulmonary edema Likely in the setting of worsening disease or superimposed bacterial infection and pulmonary edema in the setting of ESRD, Ongoing ischemic heart disease -Patient is a initially intubated on 11/11/2024 in view of acute hypoxic hypercapnic respiratory failure secondary to COPD exacerbation and pulmonary edema in the setting of CAD and ESRD - Patient is extubated on 11/16/2024 and is stable till 11/17/2024. Around 1:30 PM on 11/17/2024, patient developed sudden acute respiratory failure likely secondary due to pulmonary edema, ongoing CAD and patient was reintubated at that time Diagnostic test: - Tested negative for influenza A, B and COVID-19 - ABG at the time of admission showed pH 7.14, pCO2 71, PaO2 116, bicarb 24, oxygen saturation 97. - Chest x-ray showed cardiomegaly, infiltrates more on the right basilar area. - Labs showed WBC 13.5 - Tested negative for influenza A and B, COVID-19 - Blood cultures came back negative and 80 secretions came back positive for Acinetobacter Iwofii Treatment: - Patient is sedated, intubated and mechanically ventilated on 11/10/2024 - Received methylprednisolone 125 Mg IV x 1 in the ED - Started on methylprednisolone 60 Mg IV daily, completed 5 days on 11/14/2024 - Nebulizations every fourth of every, DuoNebs - Tried to wean the patient off ventilator on 11/13, 11/14 but noted to go to SVT and VT on both days. - Patient was extubated on 11/16/2024 and started on BiPAP and oxygen as needed and got reintubated on - Started on Unasyn as patient ET secretions culture tested positive for Acinetobacter Iwofii, stopped as of 11/18/2024 as patient completed 7 days course of antibiotics and no suspicion of active ongoing pneumonia GI: - No active problems Renal: #ESRD on HD -Patient is having 4 dialysis sessions per week At the time of admission, pH of 7.14, pCO2 71, lactic acid 4.1 Plan - [facility] Dr. Mishra consulted, appreciate recommendations - Received HD session on 11/12/2024, 11/14/2024, 11/16/2024, 11/18/2024 - Will need HD as per her routine schedule - Will avoid nephrotoxic medications and renally dose medications - Needing vasopressor during the dialysis Hematology: #Leukocytosis, resolved Reactive versus steroid versus infective Secondary to pneumonia and COPD exacerbation - Continue to treat underlying cause #Normocytic anemia DDx: Inflammatory anemia due to chronic kidney disease, versus nutritional deficiency versus malabsorption - Workup as an outpatient basis - Later patient found to be having low hemoglobin, 6.7 likely due to blood loss from Right thigh hematoma from the procedure - Transfused 2PRBC as of 11/18/2024 during HD # Thrombocytopenia, resolving - At the time of admission is 177 - Patient is started on heparin drip on 11/13/2024 in view of suspected ongoing acute ischemic heart disease. - Since then, noted to have downtrend in platelet count - Platelet count as of 11/15/2024 is 97,000 and on 11/16/2024 is within normal limits -->11/17, [id number] ---> 11/18, 94,000 - Suspected HIT in the setting of heparin and thrombocytopenia, - HIT panel is sent, came back negative Plan - Will continue to monitor platelet count. ID: #Suspected community-acquired pneumonia - Antibiotic therapy treatment as above - ET secretions culture showed Acinetobacter for which Unasyn was started and stopped on 11/18/2024 Health maintenance: Dispo: ICU for further management of acute hypoxic hypercapnic respiratory failure secondary to COPD exacerbation, Pulmonary edema Diet: on OG tube feeds Lines: Left IJ central line, peripheral lines DVT prophylaxis: Heparin CODE STATUS: Full code Patient plan of care was discussed with the optometrist, Dr. Merritt. Tricia Espinal, PGY-3
--- NOTE | 2024-11-20 13:18 | ESPR_ITS ---
Documentation for date of: 11/20/24 Subjective Subjective Interval history: This is a 74-year-old female admitted to the hospital on 11 November for acute hypoxic hypercapnic respiratory failure. She was found to have a COPD exacerbation. She had gradually improved and on the was placed on pressure support. She lasted for approximately 20 minutes before developing SVT requiring adenosine, metoprolol and diltiazem. She also developed flash pulmonary edema. She was sedated and placed back on AC/VC. On the sedation vacation was again attempted with spontaneous breathing trial. When she is awake she is very anxious and when she becomes anxious she develops SVT. This time she also developed VT and her ICD fired. She was again sedated and placed on AC/VC as well as an amiodarone drip. Discussion was held with cardiology regarding her recurrent arrhythmias. It was felt that she does have ischemic heart disease which is responsible for these dysrhythmias. The plan was for cardiac cath. Originally the patient was supposed to go for cath on the however this was canceled by cardiology. Therefore the patient was once again placed on spontaneous breathing trial which she did pass. She was extubated to BiPAP. She was still very anxious requiring Precedex drip as well as as needed Haldol. This morning she is more sedated and seems somewhat confused. There are no acute overnight events. Yesterday in the afternoon she had repeat episodes of VT terminated by her ICD. She is anuric from her end-stage renal disease. 11/19-yesterday the patient was taken to the [facility] which did not reveal any lesions that were amenable to intervention. No acute overnight events. Today the patient sedation is being weaned down. 11/20-no acute overnight events, no repeat episodes of SVT or VT over last 24 hours. Patient was placed on spontaneous mode over the course of the evening and she has tolerated well. She is on minimal dose of Precedex today. She is not on any other sedation. She has had multiple bowel movements after lactulose for her constipation. She is afebrile. She is anuric from her end-stage renal disease. Critical Care Note Critical care time (min.): 40 Exam Vital Signs Temp Pulse Resp BP Pulse Ox O2 Del Method O2 Flow Rate 98.3 F 77 33 H 175/67 H 100 Cool Mist 3 11/20/24 12:00 11/20/24 12:30 11/20/24 12:30 11/20/24 12:30 11/20/24 12:12 11/20/24 12:00 11/20/24 12:12 FiO2 28 11/20/24 12:00 Narrative Exam General-no acute distress, awake and alert, confused, normal body habitus, elderly and frail HEENT-normocephalic, atraumatic, sclera icteric, pupils equal reactive, oral mucosa slightly dry Chest-lungs diminished on the left, no wheezes auscultated, heart rate regular and rhythmic, no increased work of breathing Abdomen-soft, nontender, bowel sounds present, no rebound or guarding Extremities-edema of bilateral upper extremities extensive bruising on the patient's right upper extremity, pulses present, no focal neurological deficits, no mottling Vent PSV Physical Exam Completion Physical Exam Complete?: Yes Objective - [employer] [place] Labs 11/20/24 04:43 11/20/24 04:43 Labs: Laboratory Results - last 24 hr 11/20/24 11/20/24 04:42 04:43 WBC 9.6 RBC 3.14 L Hgb 9.2 L Hct 28.0 L MCV 89 MCH 29.3 MCHC 32.9 RDW Std Deviation 56.9 H Plt Count 111 L Neut % (Auto) 77 Lymph % (Auto) 7 L [place] % (Auto) 13 H Eos % (Auto) 2 Baso % (Auto) 0 Neut # (Auto) 7.4 Lymph # (Auto) 0.7 L [place] # (Auto) 1.3 H Eos # (Auto) 0.2 Baso # (Auto) 0.0 Immature Gran # (Auto) 0.07 H Absolute Nucleated RBC 0.02 H Immature Gran % 1 H Nucleated RBC % 0 Puncture Site Right Brachial ABG pH 7.43 ABG pCO2 38 ABG pO2 62 L D ABG HCO3 25 ABG O2 Saturation 94 ABG Base Excess 1 FiO2 21 Sodium 134 L Potassium 3.9 Chloride 96 L Carbon Dioxide 24.7 Anion Gap 13 BUN 32 H Creatinine 4.4 H* D Estim Creat Clear Calc 11.7 L eGFR 10 L* BUN/Creatinine Ratio 7 L Glucose 108 H Calculated Osmolality 276 Calcium 8.7 Corrected Calcium 9.5 Magnesium 2.0 Total Bilirubin 0.3 AST 12 ALT < 7 L Alkaline Phosphatase 86 Total Protein 4.6 L Albumin 3.0 L Globulin 1.6 L Albumin/Globulin Ratio 1.9 Assessment & Plan Additional Assessment Additional Assessment: In summary this is 74-year-old female with acute respiratory failure and ischemic heart disease a/p [employer]- pt appears confused with intermittent agitation - attempt to reorient - Currently on Precedex - Also requiring as needed Haldol - Seroquel nightly CV SVT/VT- on metoprolol 5mg IV for termination of SVT and metoprolol q12 - ICD terminates VT - on amio for stabilization of rhythm - Underwent cath without any ischemic lesion that could be intervened on -Heavy scarring and calcifications noted in the left ventricle -Patient's ongoing arrhythmia felt to be secondary to scarring without any definitive lesion to intervene on -There are no further interventions available for the patient's current condition -Her rhythm has been stable for the last 24 hours h/o Afib- eliquis can be resumed Ischemic cardiomyopathy- echo shows EF 30% with global hypokinesia and post wall akinesia - mod to severe MS - last echo in September 2023 showed EF of 45% - Cath did not show any lesion amenable to intervention - on BB - On entresto Tropinemia- SC type I v II - on heparin , ASA and plavix -> heparin stopped given cath results - followed by cardiology Resp Acute Resp failure-on PSV and tolerated well -Weaning parameters obtained -Patient extubated to oxy mask and doing well COPDE- improved Pulmonary edema- ongoing HD for volume removal ? CAP- on 7 days abx - cx grew Acinetobacter fajardo sensitive - Has completed 7 days Renal HypoNa- mild, monitor ESRD on HD- followed by nephrology Hyperphos- on sevelamer GI NPo till passes swallow Endo stable Heme Anemia-transfused on the 2 units of PRBCs -Drop in the H&H at that point in time likely due to bleed from attempted A-line the evening prior -H&H remained stable Thrombocytopenia- no indication for transfusion, had improved yesterday but down again today - HIT panel had been sent which is neg - Stable ID PNA- on 7days abx-> has been completed + Bcx- bcx from 11/11 was staph capitis, all repeat bcx NTD -> likely contaminant case d/w ICU team and nephrology and cardiology Patient has reached maximal medical therapy with no additional interventions available Patient was successfully extubated today and after couple of hours she appears lucid and conversant. I did discuss with her regarding reintubation and the findings regarding her cardiac cath. I did discuss CPR. At this point in time the patient states she is tired and just wants to go home. She notes that she was on hospice before. She does not want any additional aggressive interventions. She would like to be DNR DNI. Will discuss with social welfare research worker for home with hospice. labs, imaging, records reviewed ~40ccmin required for eval, exam, review, intervention, dicussion and formulation of POC for this critically ill patient at high risk for further and ongoing decompensation Provider Notation Provider Notation: Although this document has been carefully reviewed, there may still be some phonetic and other typographical errors. These errors are purely grammatical due to imperfections in the software program and should not be construed in any way to compromise the substance of the patient's medical care during this visit. Thank you for the opportunity and privilege in assisting you with this patient's care and management.
[2024-11-20] MEDS: METOPROLOL TARTRATE INJ 1 MG/ML AMP 5 ML 5 MG IVP ×5 (13:52→22:47)
[2024-11-20] MEDS: DILTIAZEM INJ 5 MG/ML VIAL 5 ML 10 MG IV (14:20)
[2024-11-20] MEDS: POTASSIUM CHL 10 mEq IVPB 10 MEQ/100 ML BAG 100 MEQ IV (19:38)
[2024-11-20] MEDS: MAGNESIUM OXIDE 400 MG TABLET PO (19:38)
[2024-11-20] MEDS: ATORVASTATIN CALCIUM 20 MG TABLET 40 MG NG (20:02)
--- NOTE | 2024-11-20 22:30 | PC.NURSE ---
called MD rAriaga at bedside, patient HR sustaining at 140-170's for approximately 50mins. Multiple orders received, pt also hypotensive. stated can start ordered PRN levophed for now and gently titrate per protocol.
[2024-11-20] MEDS: Magnesium Sulfate 2 GM Ivpb 2 GM/50 ML BAG IV (22:47)
--- NOTE | 2024-11-20 22:51 | EKG_ITS ---
[facility] Test Date: 2024-11-20 Pat Name: REILLY GRADY Department: Room: S253A Gender: Female Weigh Boss: KAR : 1950 Requested By: Sebastien Arriaga Order Number: [id number] Reading MD: Sebastien Arriaga Measurements Intervals [place] Rate: 138 P: MS: QRS: -61 QRSD: 176 T: 0 QT: 314 QTc: 477 Interpretive Statements ATRIAL FLUTTER/TACHYCARDIA WITH RAPID VENTRICULAR RESPONSE INTRAVENTRICULAR CONDUCTION DELAY INFERIOR MYOCARDIAL INFARCTION , POSSIBLY ACUTE WITH POSTERIOR EXTENSION ACUTE PA Compared to ECG 11/19/2024 16:36:03 Intraventricular conduction delay now present Atrial-paced complex(es) or rhythm no longer present Myocardial infarct finding still present /store/S0/[id number]/ecg/[id number].pdf
[2024-11-20] MEDS: Norepinephrine/D5W 8mg/250ml 8 MG/250 ML BAG 6.476 MG IV (23:00)
[2024-11-20 23:50] LABS: Calcium 8.8 mg/dL (8.3-10.6); Magnesium 2.5 mg/dL (1.6-2.6); Phosphorous 5.1 mg/dL (2.4-5.1); Potassium 4.3 mMol/L (3.4-5.1)
[2024-11-21] VITALS (90 sets, daily range): BP systolic 60–168; BP diastolic 25–87; PULSE 74–178; RESP 15–81; TEMP 36.6–37.3; O2SAT 88–100; BMI 26.6
--- NOTE | 2024-11-21 00:48 | ESPR_ITS ---
RE: REILLY GRADY : 1950 DATE OF SERVICE: 11/20/2024 SUBJECTIVE: The patient is a 74-year-old lady with a history of chronic kidney disease, hemodialysis, multiple stent placement, ischemic cardiomyopathy, chronic systolic heart failure, admitted to the hospital with hypoxic respiratory failure, recurrent acute pulmonary edema, now successfully extubated today. She has severe left main disease, 80%, not suitable for angioplasty, STAMP P[employer]ER or bypass surgery, also extensive scarring with calcification inferior wall apical segments causing scar-based ventricular tachycardia requiring multiple shocks. Last 12 hours has been quite calm. Apparently, she did communicate with Dr. Mishra today, but she did not want to be__ reintubation or resuscitation measures. Again, further discussion was made about whether she wants defibrillator turned off. She is still critically ill, not having any chest pain or shortness of breath. Blood pressure is on the low side, but doing well. No orthopnea or PND. OBJECTIVE: Vital Signs: Heart rate is 80, blood pressure is 110/70 mmHg. Neck: Supple. Lungs: Decreased breath sounds. Bilateral crackles. Heart: S1 and S2, regular. Abdomen: Thin. Extremities: No edema. IMPRESSION: 1. Acute hypoxic respiratory failure secondary to pulmonary edema. 2. 80% left main stenosis, widely patent right coronary artery. 3. Extensive inferior wall myocardial infarction with calcification. 4. Extensive atherosclerosis of the aorta, iliac vessels, prohibitive risk for any interventions. RECOMMENDATIONS: Continue supportive care. DNR/DNI will be instituted as per the patient's request. Comfort measure also should be considered if the patient agrees. DT: 23:36:59 TT: 00:33:00 Ref: [id number] - TID: [id number] [facility]
--- NOTE | 2024-11-21 01:21 | PC.RT ---
per dr corona to hold tx until am due to increased HR
[2024-11-21] MEDS: MIDODRINE 5 MG TABLET 10 MG NG ×2 (05:56→21:09)
[2024-11-21] MEDS: HEPARIN SOD INJ 5000 UNIT/ML VIAL SC ×3 (05:57→21:09)
[2024-11-21 06:21] LABS: Basophils # (Auto) 0.0 Thou/mm3 (0.0-0.2); Basophils % (Auto) 0 % (0-2.5); Eosinophils # (Auto) 0.2 Thou/mm3 (0.0-0.5); Eosinophils % (Auto) 2 % (0-10); Hematocrit 26.0 % (36.0-46.0); Immature Granulocytes Auto 0.12 Thou/mm3 (0.00-0.00); Lymphocytes # (Auto) 1.0 Thou/mm3 (1.0-4.8); Lymphocytes % (Auto) 10 % (10-50); Mean Corpuscular HGB Conc 32.7 g/dl (31.0-37.0); Mean Corpuscular Hemoglobin 29.4 pg (25.0-35.0); Mean Corpuscular Volume 90 fL (80-100); Monocytes # (Auto) 1.1 Thou/mm3 (0.0-0.8); Monocytes % (Auto) 11 % (0-12); Neutrophils # (Auto) 7.3 Thou/mm3 (1.8-7.7); Neutrophils % (Auto) 76 % (37-80); Nucleated Red Blood Cell # 0.00 Thou/mm3 (0.00-0.00); Nucleated Red Blood Cell % 0 /100 WBC (0); Platelet Count 121 Thou/mm3 (140-440); RDW Standard Deviation 57.7 fL (36.4-46.3); Red Blood Count 2.89 Miln/mm3 (4.00-5.20); White Blood Count 9.6 Thou/mm3 (3.6-11.0)
[2024-11-21] MEDS: ALBUTEROL/IPRATROPIUM (Duoneb) RT SOL 3 ML NEBU INH ×5 (06:34→23:23)
[2024-11-21 06:55] LABS: Hemoglobin 8.5 g/dL (12.0-16.0)
--- NOTE | 2024-11-21 07:13 | PD.RESPRO ---
Documentation for date of: 11/21/24 Subjective Subjective Interval history: Reason for consult: ESRD, acute respiratory failure, need for dialysis History of present illness: Mirella Grewal is a 74-year-old F with a PMH of CHF, coronary artery disease with multiple MIs s/p stents, COPD on 3 L home oxygen, ESRD on hemodialysis, Thursday, Thursday, , Thursday, and A-fib with pacemaker, who was brought in by EMS with a chief complaint of acute SOB. Per Internal Medicine team note, the patient called EMS due to SOB, and was saturating around 80% at home. She was given DuoNebs on the way to hospital and, when she presented to the ED, was saturating at 84% on high-flow CPAP. At this point, she was already altered, and was intubated. Internal Medicine team could not obtain further history due to patient already being intubated during their evaluation. Of note, patient has multiple prior hospitalizations for similar presentations of acute hypoxic respiratory failure including in November 2023 and September 2023. In the ED, vitals showed: BP 200/76 HR 79 RR 20 Temp 98.6 SpO2 84% on high flow CPAP, ED Course: CBC showed high WBC 13.5, and low Hgb 11.1 (MCV 96, RDW 63.4). Coagulation panel showed critically elevated D-dimer 2630 but was otherwise within normal limits. ABG showed normal pH 7.37, normal pCO2 42, normal PO2 97, and normal HCO3 24. CMP showed high BUN 39, critically elevated creatinine 6.4, critically low EGFR 6, high lactic acid 4.1, high blood glucose 184, low corrected calcium 7.7, critically elevated troponin I 0.046, critically elevated BNP 2006, high TSH 6.61, and low free T4 0.84. UA showed turbid orange urine with a basic pH of 8.0. It also showed 2+ urine protein, 2+ urine blood, high urine RBC 502, high urine WBC 1255, high urine squamous epithelial cells 29, but no urine bacteria. UDS was negative. Rapid RSV was negative. Imaging: Chest x-ray showed moderate congestive heart failure with prominent vascular congestion and perihilar basilar edema. Head CT was unremarkable. Chest CT showed bilateral thyroid nodules, mild heart failure with moderate enlargement of the cardiac contour, bibasilar pneumonia, numerous bilateral positioned metastatic pulmonary nodules, small bilateral pleural effusions, and cholelithiasis. EKG showed old DE. In the ED, patient was received methylprednisone 125 Mg IV x 1, bolus fluid 1 L at the rate 250 cc/h, cefixime 2 g IV x 1, and was started on vancomycin. The patient was intubated and admitted to ICU for further management of acute hypoxic hypercapnic respiratory failure secondary to COPD exacerbation. We, the nephrology team, were consulted for the patient's combined respiratory and metabolic acidosis and need for urgent hemodialysis due to ESRD status. Cardiology is also following. Interval History 11/16/2024: No overnight events. Patient seen and examined at bedside; she continues to be intubated and is unable to comment on her well-being or endorse new complaints or symptoms. Notable labs today include Hgb 9.0, APTT 66.7, blood pH 7.29, Na 127, Cl 88, BUN bump to 46 from 27, creatinine bump to 5.1 from 4.2, eGFR drop to 8 from 11, and phosphorus bump to 8.0 from 6.5. 11/16 CXR showed moderate heart failure with findings suggestive of superimposed pneumonia at the lung bases. Her abdomen also appears more distended today. Patient is having cardiac catheter performed by Dr. Escudero at 11:30 AM today with plans to extubate once the procedure is complete and patient is hemodynamically stable. From a nephrology standpoint, patient will be receiving HD today. 11/17/2024: No overnight events. Patient seen and examined at bedside; she is no longer intubated (extubated yesterday). Patient was awake and attempted to communicate with this proposal lead writer but her voice was very quiet, hoarse, and low so it was difficult to understand her. She seemed to want soap for her hand but this proposal lead writer was unable to tell for certain. Notable labs today include: Hgb 7.9, platelet count 104, APTT drop to 67.8 from 98.4, blood pH bump to 7.48 from 7.41, Na bump to 133 from 127, BUN drop to 30 from 46, creatinine drop to 3.9 from 5.1, eGFR bump to 12 from 8, and phosphorus drop to 5.7 from 8.0. Patient was scheduled for cardiac catheterization yesterday for her ischemic heart disease thought to be causing her recurrent SVT and VT (triggering ICD shocks) but this was canceled by cardiology. From nephrology's standpoint, we will hold off on hemodialysis for today. 11/18/2024: No overnight events. Patient seen and examined at bedside; she has been intubated once again due to agonal breathing and desaturations noted yesterday. Per cardiology, she continues to have recurrent episodes of V-tach and V-fib and the overall prognosis is poor. She also remains unable to provide consent for cardiac catheterization due to her incapacitation and lack of a living relative to provide consent on her behalf. A cardiac catheterization will be attempted if she becomes more stable and her pulmonary edema improves. Notable labs today include: Hgb 6.7, APTT 52.6, Na 130, BUN drop to 34 from 36, creatinine bump to 4.7 from 4.4, and phosphorus 6.2. Repeat CXR today shows [id number] heart failure, bibasilar pneumonia and/or pulmonary edema, and [id number] bilateral pleural effusions. From nephrology's standpoint, patient will be receiving HD w/ pRBC today. 11/19/2024: No overnight events. Patient seen and examined at bedside; they remain intubated today. Notable labs today include: Hemoglobin 10.0, platelet count 123, APTT drop to 29.2 from 52.6, BUN drop to 25 from 34, creatinine drop to 3.6 from 4.7, and phosphorus drop to 5.2 from 6.2. Consent for cardiac catheterization procedure was finally obtained from patient's close friend, and cardiac catheterization was performed by Dr. Escudero yesterday. After the procedure was completed, cardiology determined that there was no intervention they could do that could significantly ameliorate the patient's current critical condition. Cardiology currently recommends pure medical management and pursuit of comfort measures. From nephrology's standpoint, patient will be taking a break from hemodialysis today. 11/20/2024: Pt seen and examined in the ICU, pt is extubated with oxymask in place. Per conversation with Dr. Lopez, there is significant calcification on angiogram, and scarring. Cards reccomends medical management. BUN 32 from 25, Cr 4.4 from 3.6. pt is able to answer questions by shaking head and vocalizing. She is still on pressedex, plan to discuss code status with patient once she is alert and awake. No HD today 11/21/2024: No overnight events. Patient seen and examined at bedside; they are not intubated and seem more awake and alert. The idea of removing the ICD that continues to shock her was broached to the patient but met with seeming resistance by the patient (via shaking of the head). Notable labs today include: Hgb 8.5, Na 131, K 4.3, BUN bump to 38 from 32, and creatinine bump to 5.3 from 4.4. Patient is continuing to receive shocks without any available intervention to better her situation and, per ICU note, she has reached maximal medical therapy with no additional interventions available. Patient has agreed to be DNR/DNI and does not want any additional aggressive interventions. From nephrology's standpoint, patient will be receiving hemodialysis today. Exam Vital Signs Temp Pulse Resp BP Pulse Ox O2 Del Method O2 Flow Rate 99.0 F 88 18 148/62 H 100 Nasal Cannula 3 11/21/24 04:00 11/21/24 06:34 11/21/24 06:34 11/21/24 06:00 11/21/24 06:34 11/21/24 04:00 11/21/24 06:34 FiO2 28 11/20/24 12:00 Narrative Exam General: Extubated . Patient is awake and alert but cannot be assessed for orientation due to her voice hoarseness, no acute distress. Skin: Some skin break down on LUE wrist fistula. Warm, dry. Head: Normocephalic, atraumatic. Eyes: EOMI, anicteric. Cardiovascular: Episodes of possible ICD shocks can be felt on the right side of the sternum. Regular rate and rhythm, no murmur, no JVD or carotid bruits. +S1/S2. Respiratory: on oxymask, some trace crackles bilaterally, No accessory muscle use. Gastrointestinal: Soft, nontender, non distended no palpable masses. Extremities: Right hand and forearm appears bruised and swollen with gauze wrapped around it. Smaller area of bruising noted on left hand dorsum. RUE hand edema> LUE edema. warm to touch. 2+ dorsal pedalis, UE in restraints. Neuro: responds to questions. Objective Labs 11/21/24 05:39 11/21/24 05:39 Labs: Laboratory Results - last 24 hr 11/18/24 11/20/24 11/21/24 06:36 23:20 05:39 WBC 9.6 RBC 2.89 L Hgb 8.5 L Hct 26.0 L MCV 90 MCH 29.4 MCHC 32.7 RDW Std Deviation 57.7 H Plt Count 121 L Neut % (Auto) 76 Lymph % (Auto) 10 Pershing % (Auto) 11 Eos % (Auto) 2 Baso % (Auto) 0 Neut # (Auto) 7.3 Lymph # (Auto) 1.0 Pershing # (Auto) 1.1 H Eos # (Auto) 0.2 Baso # (Auto) 0.0 Immature Gran # (Auto) 0.12 H Absolute Nucleated RBC 0.00 Immature Gran % 1 H Nucleated RBC % 0 Potassium 4.3 Calcium 8.8 Phosphorus 5.1 Magnesium 2.5 Crossmatch See Detail ABG Interpretation ABG results: 11/11/24 11/11/24 11/12/24 04:01 07:38 04:55 ABG pH 7.14 L* 7.37 D 7.26 L D ABG pCO2 71 H* 42 D 44 ABG pO2 116 H 97 95 ABG HCO3 24 24 20 ABG O2 Saturation 97 99 H 98 ABG Base Excess -6 L -1 -7 L 11/12/24 11/13/24 11/14/24 07:35 04:13 04:35 ABG pH Cancelled 7.42 D 7.46 H ABG pCO2 Cancelled 48 40 ABG pO2 Cancelled 79 L 106 D ABG HCO3 Cancelled 31 H 29 H ABG O2 Saturation Cancelled 97 99 H ABG Base Excess Cancelled 6 H 4 H 11/15/24 11/16/24 11/16/24 04:58 05:20 11:55 ABG pH 7.47 H 7.29 L D 7.41 D ABG pCO2 39 51 H D 39 D ABG pO2 100 234 H D 160 H D ABG HCO3 29 H 24 24 ABG O2 Saturation 99 H 100 H 100 H ABG Base Excess 5 H -2 0 11/17/24 11/17/24 11/18/24 09:09 16:45 05:00 ABG pH 7.48 H 7.36 D 7.40 ABG pCO2 33 47 D 44 ABG pO2 132 H D 154 H D 203 H D ABG HCO3 25 27 H 27 H ABG O2 Saturation 101 H 100 H 101 H ABG Base Excess 1 1 2 11/19/24 11/20/24 04:14 04:42 ABG pH 7.41 7.43 ABG pCO2 43 38 ABG pO2 205 H 62 L D ABG HCO3 27 H 25 ABG O2 Saturation 101 H 94 ABG Base Excess 3 1 Quality Measures Quality Measures none Advance care planning discussed with:: patient Assessment & Plan Assessment Current Active Medications: Generic Name Dose Route Start Last Admin Trade Name Freq PRN Reason Stop Dose Admin Acetaminophen 650 mg 11/11/24 05:17 Acetaminophen 325 Mg Tablet PO 12/11/24 05:16 Q6H PRN Fever >100.5 Albuterol/Ipratropium 3 ml 11/11/24 07:00 11/21/24 06:34 Albuterol/Ipratropium (Duoneb) Rt Poonam 3 Ml Nebu INH 12/11/24 06:59 3 ml Q4HRRT RAYO Administration Amiodarone HCl 200 mg 11/18/24 09:00 11/20/24 20:02 Amiodarone Hcl 200 Mg Tablet NG 12/18/24 08:59 200 mg BID RAYO Administration Aspirin 81 mg 11/11/24 09:00 11/20/24 08:43 Aspirin 81 Mg Chew NG 12/11/24 08:59 81 mg QDAY RAYO Administration Atorvastatin Calcium 40 mg 11/11/24 21:00 11/20/24 20:02 Atorvastatin Calcium 20 Mg Tablet NG 12/11/24 20:59 40 mg HS RAYO Administration Bisacodyl 10 mg 11/16/24 10:09 11/16/24 10:44 Bisacodyl 10 Mg Supp NC 12/16/24 10:08 10 mg QDAY PRN Administration CONSTIPATION Protocol Dextrose 25 ml 11/12/24 06:24 11/20/24 06:12 Dextrose 50%-Water Inj 50 Ml Syringe IV 12/12/24 06:23 25 ml Q15MIN PRN Administration BG 50-70 responsive npo pt Dextrose 50 ml 11/12/24 06:24 11/18/24 18:50 Dextrose 50%-Water Inj 50 Ml Syringe IV 12/12/24 06:23 50 ml Q15MIN PRN Administration BG <50 OR BG <70 & pt unresponsive Epoetin Dipesh 10,000 unit 11/21/24 10:00 Epoetin Dipesh-Epbx Inj 10,000 Unit/Ml Vial (Esrd) SC 11/21/24 10:01 X1 ONE Famotidine 20 mg 11/11/24 09:00 11/20/24 08:43 Famotidine Inj 10 Mg/Ml Vial 2 Ml IVP 12/11/24 08:59 20 mg QDAY RAYO Administration Protocol Glucagon 1 mg 11/12/24 06:24 Glucagon Inj 1 Mg Vial IM Q15MIN PRN BG <70, and no IV access Haloperidol Lactate 5 mg 11/19/24 15:27 11/20/24 08:57 Haloperidol Lact Inj 5 Mg/Ml Vial IV 11/24/24 15:26 5 mg Q6HR PRN Administration AGITATION (SEVERE) Heparin Sodium (Porcine) 5,000 unit 11/19/24 06:00 11/21/24 05:57 Heparin Sod Inj 5000 Unit/Ml Vial SC 12/03/24 05:59 5,000 unit Q8HR RAYO Administration Norepinephrine/Dextrose 8 mg in 250 mls @ 6.476 mls/hr 11/11/24 16:05 11/21/24 04:15 Levophed In D5w 8mg/250ml IV 12/11/24 16:04 0 mcg/kg/min .Q24H PRN 0 mls/hr PER PROTOCOL Titration Protocol 0.05 MCG/KG/MIN Albumin Human 25 gm in 100 mls @ 100 mls/min 11/14/24 08:47 11/14/24 18:41 Albuminar-25 Ivpb IV Infused PRN PRN Infusion DIALYSIS Propofol 1,000 mg in 100 mls @ 2.13 mls/hr 11/18/24 20:25 11/19/24 10:27 Diprivan Ivpb IV 12/18/24 20:24 0 mcg/kg/min .Q24H PRN 0 mls/hr PER PROTOCOL Titration Protocol 5 MCG/KG/MIN Dexmedetomidine/Sodium Chloride 400 mcg in 100 mls @ 3.375 mls/hr 11/18/24 20:27 11/20/24 12:09 Precedex Ivpb IV 12/13/24 09:42 0 mcg/kg/hr .Q24H PRN 0 mls/hr Per PROTOCOL Titration Protocol 0.2 MCG/KG/HR Fentanyl Citrate 2,500 mcg in 250 mls @ 2.5 mls/hr 11/18/24 20:27 11/19/24 12:19 Sublimaze Inj 2,500 Mcg/250 Ml Bag IV 11/22/24 16:07 Infused .Q24H PRN Titration PER PROTOCOL Protocol 25 MCG/HR Labetalol HCl 20 mg 11/19/24 14:42 Labetalol Inj 5 Mg/Ml Vial 20 Ml IVP 12/19/24 17:59 Q4HR PRN hypertension Magnesium Hydroxide 30 ml 11/16/24 10:08 11/16/24 10:46 Milk Of Magnesia Susp 30 Ml Udc PO 12/16/24 10:07 30 ml QDAY PRN Administration CONSTIPATION Protocol Metoprolol Tartrate 25 mg 11/14/24 11:30 11/20/24 20:02 Metoprolol Tartrate 25 Mg Tablet NG 12/14/24 11:29 25 mg BID RAYO Administration Midodrine 10 mg 11/11/24 22:00 11/21/24 05:56 Midodrine 5 Mg Tablet NG 12/11/24 21:59 10 mg TID RAYO Administration Ondansetron HCl 4 mg 11/11/24 05:17 Ondansetron Inj 2 Mg/Ml Inj 2 Ml IVP 12/11/24 05:16 Q6H PRN NAUSEA OR VOMITING Protocol Pharmacy Consult 1 each 11/11/24 05:27 Pharmacy Renal Dose Adjustment 1 Ea XX 12/11/24 05:26 PRN PRN CONSULT Quetiapine Fumarate 50 mg 11/20/24 21:00 11/20/24 20:02 Quetiapine Fumarate 25 Mg Tablet PO 12/20/24 20:59 50 mg HS RAYO Administration Sacubitril/Valsartan 1 tab 11/18/24 11:15 11/20/24 20:02 Sacubitril 24 Mg/Valsartan 26 Mg Tablet PO 12/18/24 11:14 1 tab BID RAYO Administration Sevelamer Carbonate 0.8 gm 11/14/24 08:00 11/20/24 17:10 Sevelamer Carbonate 0.8 Gm Packet (Non-Formulary) NG 12/14/24 07:59 Not Given TIDWM RAYO Sodium Chloride 3 ml 11/11/24 04:43 Sodium Chloride Rt Poonam 0.9% 3 Ml Nebu INH 12/11/24 04:42 PRN PRN SOLN Plan Mirella Grewal is a 74-year-old F with a PMH of CHF, coronary artery disease with multiple MIs s/p stents, COPD on 3 L home oxygen, ESRD on hemodialysis, Thursday, Thursday, , Thursday, and A-fib with pacemaker, who was brought in by EMS with a chief complaint of acute SOB. The patient was intubated and admitted to ICU for further management of acute hypoxic hypercapnic respiratory failure secondary to COPD exacerbation. Patient is continuing to receive shocks without any available intervention to better her situation and, per ICU note, she has reached maximal medical therapy with no additional interventions available. Patient has agreed to be DNR/DNI and does not want any additional aggressive interventions. From nephrology's standpoint, patient will be receiving hemodialysis today. 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, requires vascular surgery follow up Fistula remains patent and thrill is palpable Treatment Plan -Follow-up with vascular surgery -Continue to monitor #Acute hypoxic respiratory failure - extubated, on oxymask #CAP #Possible CHF exacerbation, likely 2/2 volume overload in the setting of ESRD #Pleural Effusion Critically elevated BNP 2005 with elevated troponin I 0.046 CXR showed moderate congestive heart failure with prominent vascular congestion and perihilar basilar edema Chest CT showed mild heart failure with moderate enlargement of the cardiac contour with small bilateral pleural effusions 11/13 CXR showed bibasilar pneumonia with significant RLL consolidation 11/13 EKG showed a change from sinus rhythm to atrial fibrillation with intermittent pacemaker rhythm 11/14 troponin downtrended to 3.023 from 4.088 Treatment Plan -Continue management per primary care team #SVT #Recurrent Tachyarrythmia -s/p angiogram, significant calcifications #Hx of A-fib, on Eliquis and s/p pacemaker Treatment Plan -Continue management per cardiology recommendations -Continue management per primary care team #Electrolyte abnormalities #Hypocalcemia, likely 2/2 ESRD status (resolving) #Mild hyponatremia #Hypochloremia Treatment Plan -Continue NG calcium carbonate BID per primary care team -Monitor electrolyte levels, correct as needed -Continue Veltassa to treat possible hyperkalemia -Continue sevelamer to treat possible hyperphosphatemia #Normocytic anemia, likely 2/2 ESRD status #Thrombocytopenia Admission Hgb 11.1 (MCV 96, RDW 63.4) 11/12/24: Hgb dropped to 10.0 -s/p Epoetin 10,000 U x1 11/14/24: Hgb 9.5, platelet count down to 106 from 134 11/16/24: Hgb 9.0 11/17/24: Hgb 7.9 11/20/24: Hgb 9.2 Treatment Plan -Monitor H&H, transfuse if Hgb<7 #Other medical problems #Acute encephalopathy likely 2/2 CO2 narcolepsy in the setting of COPD exacerbation #Acute hypoxic hypercapnic respiratory failure likely 2/2 CHF exacerbation vs. COPD exacerbation vs. both #COPD exacerbation #Community-acquired pneumonia #Leukocytosis- downtrending #CAD s/p stents Treatment Plan -Continue management per primary care team Plan discussed with nephrology attending Dr. Danica Pineda, DO Internal Medicine, PGY-1 Attending Provider Attestation/Addendum Patient seen and examined with resident physician Dr. Pineda. Note reviewed, agree with findings and recommendations. Patient currently seen in ICU Patient with arrhythmias and ICD shocks. Dr. Luo did angiogram and noted significant calcification in all the blood vessels including heavy calcification in the mitral valve and the left ventricle completely calcified. Unfortunately cannot fix the problem. Despite daily dialysis patient goes into fluid overload due to heart problems. Critical care spent more than 35minutes regarding plan of care and disease management. Patient extubated yesterday. She made herself DNR, DNI. Did talk to the patient regarding holding off on the defibrillator and patient wants to continue with the present care. Did not want the defibrillator to be turned off. patient currently seen on dialysis. Tolerating dialysis without any problems. Hemodialysis for 3 hours, 2K, ultrafiltration 2-3 L, Epogen 6000, no heparin ordered. Plan of care discussed with the dialysis nurse. Please see dialysis flowsheet for further details. Plan of care discussed with ICU team
[2024-11-21 07:19] LABS: Alanine Aminotransferase 8 U/L (10-49); Albumin, Serum 3.1 gm/dL (3.4-4.8); Albumin/Globulin Ratio 1.9 (1.2-2.2); Alkaline Phosphatase 108 U/L (46-116); Anion Gap 16 (7-16); Aspartate Amino Transferase 17 U/L (0-34); BUN/Creatinine Ratio 7 Ratio (12-20); Bilirubin,Total 0.3 mg/dL (0.3-1.2); Blood Urea Nitrogen 38 mg/dL (9-23); Calcium 8.9 mg/dL (8.3-10.6); Calcium (Corrected) 9.6 mg/dL (8.5-10.1); Carbon Dioxide 22.4 mMol/L (20.0-31.0); Chloride 93 mMol/L (98-107); Creatinine (Component) 5.3 mg/dL (0.6-1.3); Estimated Creatinine Clearance 9.8 mL/min (>60); Globulin 1.6 gm/dL (2.3-3.5); Glucose 87 mg/dL (74-106); Magnesium 2.5 mg/dL (1.6-2.6); Osmolality,Calculated 270 (275-295); Potassium 4.3 mMol/L (3.4-5.1); Sodium 131 mMol/L (136-145); Total Protein 4.7 gm/dL (5.7-8.2); eGFR 8 See Note
[2024-11-21] MEDS: SEVELAMER CARBONATE 0.8 GM PACKET (NON-FORMULARY) NG ×3 (08:30→18:39)
[2024-11-21] MEDS: ASPIRIN 81 MG CHEW NG (08:31)
[2024-11-21] MEDS: FAMOTIDINE INJ 10 MG/ML VIAL 2 ML 20 MG IVP (08:31)
[2024-11-21] MEDS: METOPROLOL TARTRATE 25 MG TABLET NG ×2 (08:32→21:08)
[2024-11-21] MEDS: AMIODARONE HCL 200 MG TABLET NG ×2 (08:32→21:08)
[2024-11-21] MEDS: EPOETIN ALFA-EPBX INJ 10,000 UNIT/ML VIAL (ESRD) 10000 UNIT SC (09:33)
[2024-11-21] MEDS: METOPROLOL TARTRATE INJ 1 MG/ML AMP 5 ML 5 MG IVP (09:52)
--- NOTE | 2024-11-21 14:59 | PD.INTPROG ---
Documentation for date of: 11/21/24 Subjective Subjective Interval history: This is a 74-year-old female admitted to the hospital on 11 November for acute hypoxic hypercapnic respiratory failure. She was found to have a COPD exacerbation. She had gradually improved and on the was placed on pressure support. She lasted for approximately 20 minutes before developing SVT requiring adenosine, metoprolol and diltiazem. She also developed flash pulmonary edema. She was sedated and placed back on AC/VC. On the sedation vacation was again attempted with spontaneous breathing trial. When she is awake she is very anxious and when she becomes anxious she develops SVT. This time she also developed VT and her ICD fired. She was again sedated and placed on AC/VC as well as an amiodarone drip. Discussion was held with cardiology regarding her recurrent arrhythmias. It was felt that she does have ischemic heart disease which is responsible for these dysrhythmias. The plan was for cardiac cath. Originally the patient was supposed to go for cath on the however this was canceled by cardiology. Therefore the patient was once again placed on spontaneous breathing trial which she did pass. She was extubated to BiPAP. She was still very anxious requiring Precedex drip as well as as needed Haldol. This morning she is more sedated and seems somewhat confused. There are no acute overnight events. Yesterday in the afternoon she had repeat episodes of VT terminated by her ICD. She is anuric from her end-stage renal disease. 11/19-yesterday the patient was taken to the [facility] which did not reveal any lesions that were amenable to intervention. No acute overnight events. Today the patient sedation is being weaned down. 11/20-no acute overnight events, no repeat episodes of SVT or VT over last 24 hours. Patient was placed on spontaneous mode over the course of the evening and she has tolerated well. She is on minimal dose of Precedex today. She is not on any other sedation. She has had multiple bowel movements after lactulose for her constipation. She is afebrile. She is anuric from her end-stage renal disease. 11/21-overnight patient once more had episodes of SVT and VT which were on again off again for about 30 minutes. I am told that she had no pain during these episodes. This morning she is awake pleasant, tired Critical Care Note Critical care time (min.): 0 Exam Vital Signs Temp Pulse Resp BP Pulse Ox O2 Del Method O2 Flow Rate 97.9 F 100 27 H 137/82 H 100 Nasal Cannula 2 11/21/24 12:10 11/21/24 14:00 11/21/24 14:00 11/21/24 14:00 11/21/24 13:55 11/21/24 12:10 11/21/24 13:55 FiO2 28 11/21/24 11:55 Narrative Exam General-no acute distress, fatigued in appearance, elderly and frail HEENT-normocephalic, atraumatic, sclera icteric, oral mucosa is very dry edentulous Chest-crackles at bases, few scattered expiratory wheezes, heart rate regular and rhythmic, occasional ectopic beats, no increased work of breathing, no use of accessory muscles Abdomen-soft, nontender, bowel sounds present Extremities-edema and bruising of bilateral upper extremities however greater on the right than on the left, pulses palpable, no clubbing, no mottling Physical Exam Completion Physical Exam Complete?: Yes Objective - Clearance Rep Labs 11/22/24 04:50 11/22/24 04:50 Labs: Laboratory Results - last 24 hr 11/18/24 11/18/24 11/20/24 04:30 06:36 23:20 WBC RBC Hgb Hct MCV MCH MCHC RDW Std Deviation Plt Count Neut % (Auto) Lymph % (Auto) [place] % (Auto) Eos % (Auto) Baso % (Auto) Neut # (Auto) Lymph # (Auto) [place] # (Auto) Eos # (Auto) Baso # (Auto) Immature Gran # (Auto) Absolute Nucleated RBC Immature Gran % Nucleated RBC % Sodium Potassium 4.3 Chloride Carbon Dioxide Anion Gap BUN Creatinine Estim Creat Clear Calc eGFR BUN/Creatinine Ratio Glucose Calculated Osmolality Calcium 8.8 Corrected Calcium Phosphorus 5.1 Magnesium 2.5 Total Bilirubin AST ALT Alkaline Phosphatase Total Protein Albumin Globulin Albumin/Globulin Ratio Misc Test Result See Sep Rpt Crossmatch See Detail 11/21/24 05:39 WBC 9.6 RBC 2.89 L Hgb 8.5 L Hct 26.0 L MCV 90 MCH 29.4 MCHC 32.7 RDW Std Deviation 57.7 H Plt Count 121 L Neut % (Auto) 76 Lymph % (Auto) 10 [place] % (Auto) 11 Eos % (Auto) 2 Baso % (Auto) 0 Neut # (Auto) 7.3 Lymph # (Auto) 1.0 [place] # (Auto) 1.1 H Eos # (Auto) 0.2 Baso # (Auto) 0.0 Immature Gran # (Auto) 0.12 H Absolute Nucleated RBC 0.00 Immature Gran % 1 H Nucleated RBC % 0 Sodium 131 L Potassium 4.3 Chloride 93 L Carbon Dioxide 22.4 Anion Gap 16 BUN 38 H Creatinine 5.3 H* D Estim Creat Clear Calc 9.8 L eGFR 8 L* BUN/Creatinine Ratio 7 L Glucose 87 Calculated Osmolality 270 L Calcium 8.9 Corrected Calcium 9.6 Phosphorus Magnesium 2.5 Total Bilirubin 0.3 AST 17 ALT 8 L Alkaline Phosphatase 108 D Total Protein 4.7 L Albumin 3.1 L Globulin 1.6 L Albumin/Globulin Ratio 1.9 Misc Test Result Crossmatch Assessment & Plan Additional Assessment Additional Assessment: In summary this is 74-year-old female with acute respiratory failure and ischemic heart disease 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 [employer]-patient appears to be improved - Patient has been awake and lucid the last 2 days - Has not required Precedex or Haldol and remains on the Seroquel 50 mg nightly CV SVT/VT- on metoprolol 5mg IV for termination of SVT and metoprolol q12 - ICD terminates VT - on amio for stabilization of rhythm - Underwent cath without any ischemic lesion that could be intervened on -Heavy scarring and calcifications noted in the left ventricle -Patient's ongoing arrhythmia felt to be secondary to scarring without any definitive lesion to intervene on -There are no further interventions available for the patient's current condition - Did have SVT and VT overnight -Her ICD did fire however patient states she does not want to have her ICD turned off h/o Afib- eliquis can be resumed Ischemic cardiomyopathy- echo shows EF 30% with global hypokinesia and post wall akinesia - mod to severe MS - last echo in September 2023 showed EF of 45% - Cath did not show any lesion amenable to intervention - on BB - On entresto Tropinemia- VT type I v II - on heparin , ASA and plavix -> heparin stopped given cath results - followed by cardiology Resp Acute Resp failure-improved COPDE- improved Pulmonary edema- ongoing HD for volume removal ? CAP-completed treatment course - cx grew Acinetobacter fajardo sensitive - Has completed 7 days Renal HypoNa- mild, monitor ESRD on HD- followed by nephrology -For dialysis today Hyperphos- on sevelamer GI NPo till passes swallow Endo stable Heme Anemia-transfused on the 2 units of PRBCs -Drop in the H&H at that point in time likely due to bleed from attempted A-line the evening prior -H&H remained stable Thrombocytopenia- no indication for transfusion, had improved yesterday but down again today - HIT panel had been sent which is neg - Stable ID PNA- on 7days abx-> has been completed + Bcx- bcx from 11/11 was staph capitis, all repeat bcx NTD -> likely contaminant case d/w ICU team and nephrology and cardiology Patient has reached maximal medical therapy with no additional interventions available Patient is DNR/DNI Have discussed the possibility of getting her home with hospice and currently pending social work evaluation labs, imaging, records reviewed ~38min required for eval, exam, review, intervention, dicussion and formulation of POC for this acutely ill patient at high risk for further and ongoing decompensation Provider Notation Provider Notation: Although this document has been carefully reviewed, there may still be some phonetic and other typographical errors. These errors are purely grammatical due to imperfections in the software program and should not be construed in any way to compromise the substance of the patient's medical care during this visit. Thank you for the opportunity and privilege in assisting you with this patient's care and management.
--- NOTE | 2024-11-21 17:08 | PD.RESPRO ---
Documentation for date of: 11/21/24 Subjective Subjective Interval history: The patient is a 74-year-old female with significant past medical history of CHF, coronary artery disease with multiple MIs s/p stents, COPD on 3 L home oxygen, ESRD on hemodialysis, Thursday, Thursday, , Thursday, A-fib with pacemaker, brought in by EMS with chief complaint of acute SOB. The patient called EMS due to SOB, and she was saturating on 80s at her home. She was given DuoNeb on the way to hospital, and when she presented to ED, her saturation was 84 on high flow CPAP. She was already altered, and was intubated. Further history were unobtainable, as patient was already intubated during my evaluation. In the ED her vitals were significant for a blood pressure of 200/76, pulse 79, RR 20, labs are significant for white count 13.5, RBC 3.88, hemoglobin 11.1, D-dimer 2630, ABG revealed pH of 7.14, pCO2 71, pO2 116, bicarb 24, sodium 135, potassium 4.6, BUN 39, creatinine 6.4, lactic acid 4.1, corrected calcium 7.7, magnesium 2.2, AST/ALT/ALP less than 10, less than 10/05/2027 respectively. Ammonia was 17, troponin 0.046, CRP less than 0.5, BNP 2006, lipid panel revealed LDL 116, lipase 68, TSH 6.61, free T4 0.84. 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 The patient received methylprednisone 125 Mg IV x 1, bolus fluid 1 L at the rate 250 cc/h, cefixime 2 g IV x 1, and started on vancomycin. The patient was intubated and admitted to ICU for further management of acute hypoxic hypercapnic respiratory failure secondary to COPD exacerbation. 11/11/2024: Patient is sedated and on mechanical ventilator. Most of the history is taken from the chart review and from the nurse at the bedside. Patient supposedly lives alone and developed shortness of breath, for which she called the EMS. By the time EMS went her home she was severely short of breath for which she was given DuoNebs and was kept on CPAP following which she was brought to the hospital where she was given steroids, sedated and intubated. Later central line was placed. No acute overnight events. Vitals are stable and patient is on propofol and fentanyl drip without any vasopressor support. Started on methylprednisolone 60 Mg IV once daily, ceftriaxone and azithromycin. Repeat ABG after the intubation is within normal limits. Will continue mechanical ventilation for now and monitor the patient. Later in the evening, patient is found to be mildly hypotensive for which low-dose Levophed was started and patient was given a dose of midodrine 10 Mg through orogastric tube. 11/12/2024: Patient is seen and examined at bedside in the ICU. No acute overnight events. Sedated and on mechanical ventilator, VC/AC mode with tidal volume 380, PEEP 5, FiO2 30% and saturating around 95%. Vitals are stable and patient is mildly hypotensive, started on Levophed which was stopped around 7 AM this morning, maintain blood pressures only on minimal doses of Levophed 0.05 mcg/kg/min. Labs done this morning showed mild leukocytosis, sodium 131, potassium 5.5, BUN 61, creatinine 7.9, bicarb 19.2, phosphorus 7.8. ABG showed metabolic acidosis Patient missed her dialysis session yesterday which was started this morning and Levophed is restarted to support the blood pressure during dialysis. Tolerated dialysis well on 2 L of fluid is taken. Patient was changed from VC/AC mode to pressure support mode. Will repeat ABG tomorrow morning and if patient is hemodynamically stable, able to respond after weaning of the sedation, planning to wean her off the mechanical ventilator. 11/13/2024: Patient seen this morning, at a RASS of 0 able to follow commands well, interactive and trying to communicate. Initially plan was to extubate today. Later that morning around 9:40 am patient appeared anxious and went into SVT rate up to 180s with hypoxia in the 70s while on pressure support. Patient was switched back to AC/VC on 100% FiO2. Patient was given metoprolol tartrate 5 mg IV x1, adenosine 6 mg IV x1, furosemide 40 mg IV x1, diltiazem 10 mg IV x1, and midazolam 1 mg IV x1, after which patient had resolution of heart rate and rhythm. Patient was then placed on Precedex drip. Will keep patient sedated overnight and try for extubation tomorrow. Started Veltassa for hyperkalemia, follow up potassium levels. Patient will have dialysis tomorrow. Troponin was repeated in the afternoon which was elevated at 4.088 therefore Plavix loading dose was given 300 mg x1 followed by 75 mg qday and heparin drip was started after discussed with Dr. Escudero. 11/14/2024: Patient is seen and examined at bedside in the ICU. Initial plan was to extubate patient this morning but after decreasing the sedation, patient became more interactive and is trying to communicate with the hand gestures and trying to speak. Patient was kept on pressure support mode and she was tolerating it well. Later suddenly noted multiple episodes of SVT and VT. Patient was given 300 mg bolus of amiodarone and was started on amiodarone drip. Later no further episodes of arrhythmias were noted during the day. Patient was kept back on the VC/AC mode. Consulted congressional representative, Dr. Escudero who is following the patient, recommended that he will do cardiac cath on 11/16/2024. So we will plan to extubate patient once the cardiac cath is done as patient is going into arrhythmias whenever trying to wean her off the sedation and extubate. Patient is taking metoprolol 25 mg twice daily at home. Echocardiogram done on 11/13/2024 showed EF of 30%. So resumed metoprolol to tartrate 25 mg twice daily. Will continue telemetry monitoring 11/15/2024: Patient is seen and examined at bedside in the ICU. No acute overnight events. No further episodes of SVT and VT noted. Patient continued to be on the amiodarone drip and heparin drip. Pending cardiac cath tomorrow around 11:[address] Escudero. Noted to have mild respiratory alkalosis for which respiratory rate is decreased from 20-18. Labs done this morning showed thrombocytopenia, 97,000. As patient is on heparin drip and also noted to have downtrending platelet count since the start of heparin drip, will do workup for heparin-induced thrombocytopenia. Will keep patient on n.p.o. since midnight. Transition to oral amiodarone 200 mg twice daily based on Dr. Escudero's recommendations. Will stop heparin drip around 1 hour before the cardiac catheterization. Talked to her friend who is the point of contact who gave consent for the cardiac catheterization and also patient when she is awake she wrote down on the patient that she wants to undergo cardiac catheterization. Planning to extubate once cardiac catheterization is done if the patient is hemodynamically stable.Will continue to monitor platelet count and discontinue heparin drip of the platelet counts downtre 11/16/2024: Patient is seen and examined at bedside in the ICU. No acute overnight events. Patient is noted to be agitated overnight for which she was kept on high doses of fentanyl and Precedex. Otherwise patient is doing good and ABG done this morning showed mild respiratory acidosis. Patient was supposed to get cardiac cath today but the procedure is postponed for now. As patient is hemodynamically stable and is on minimal requirement of FiO2, planned to extubate. Patient was started on pressure support and titrated to wean her off sedation. Patient tolerated pressure support well and passed spontaneous breathing trial following which patient was extubated on 11/16/2024 around 10:20 AM. Patient is extubated to BiPAP. Later patient was noted to have multiple episodes of short lasting SVT and VT for which a dose of metoprolol 5 mg and Haldol, Seroquel is given as patient appears to be delirious and continuously got agitated saying that someone is trying to kill her. Patient was restarted on Precedex. Around 3 PM patient was started on the dialysis during which she needed vasopressor support for shock. ABG done after extubation is within normal limits. Patient was weaned off the BiPAP and kept on the oxy mask. Patient continued to develop SVT and bradycardia episodes for which patient was given amiodarone 150 mg bolus and started on drip. [employer] Supervisor, Dr. Escudero is following the patient and recommended to continue drip. ICD interrogation was done and showed multiple episodes of VT for which shock was delivered. Found to have Acinetobacter Iwofii on sputum culture for which patient was started on Unasyn 11/17/2024: Patient is seen and examined at bedside in the ICU. Overnight, patient was noted to have episodes of SVT and VT for which patient was given a dose of metoprolol 5 mg and in the view of agitation, patient also received 1 dose of olanzapine. At the time of examination in the morning, patient is able to answer some questions but still delirious and confused. Vitals are stable and patient is on OxyMask. Labs done this morning showed hemoglobin 7.9, platelets 104, sodium 133, potassium 3.6, BUN 30, creatinine 3.9. Patient was given a dose of 20 mill equivalents of IV potassium in view of continuous arrhythmias. Around 1:30 PM, patient was noted to have altered sensorium with difficulty breathing for which patient was kept on BiPAP despite which the saturations are low around 80s for which patient was intubated and kept on mechanical ventilator. A dose of labetalol 10 mg is given at the time in view of high blood pressures and suspected pulmonary edema. Will continue amiodarone, heparin drip. Repeat CBC, CMP, lactate and procalcitonin, ABG is ordered. 11/18/2024: Patient is seen and examined at the bedside in the ICU. Overnight, patient found to be agitated and was started on fentanyl drip. Vitals are stable and noted to have no episodes of SVT/VT. Vitals are stable. On physical examination, patient noted to have oozing from right upper extremity. Noted no bowel movements since the time of admission despite edema, milk of mag and senna. Labs done this morning showed hemoglobin of 6.7, likely acute blood loss from the right thigh hematoma. Patient got her regular HD today with 2 units of PRBC transfusion with 3 L of fluid removal. [employer] Supervisor, Dr. 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 Patient found to have episodes of VT in the cardiac Lead Web Application Developer for which patient was given 2 shocks following which converted to normal sinus rhythm. Heparin drip was stopped and patient was transferred back to the ICU. No further episodes of VT was noted. Planning to start lidocaine drip the patient continues to have recurrent persistent VT. Goals of care discussion are done with the point of contact, siria and explain her but patient's current condition and her prognosis. The the point of contact, Siria is willing to keep her on comfort measures as her medical conditions are addressed and noted to have poor prognosis but she is concerned about the lability issues. will have a goals of care discussions again tomorrow with psychiatric social worker supervisor. 11/19/2024: Patient is seen and examined at bedside in the ICU. Overnight, patient was found to have an SVT episode for which a dose of metoprolol 2.5 mg is given and no other significant events. Vitals are stable and patient is on low-dose Levophed and sedation. Vitals are stable. On physical examination, patient appears to respond to verbal commands and able to follow commands, patient is trying to communicate. On physical examination, noted to have abdominal distention and patient had no bowel movement since the time of admission. Labs done this morning showed hemoglobin 10, platelets 123, BUN 25, creatinine 3.6, phosphorus 5.2, albumin 3. Patient was started on 45 g of lactulose every fourth hourly following which patient had 2 large bowel movements. As patient is able to follow commands, started on pressure support and patient is tolerating well. If patient is hemodynamically stable and passes SBT, plan to extubate tomorrow after having goals of care discussion. Hemodialysis is held for today. 11/20/2024: Patient was extubated successfully today to OxyMask, saturated well on 6L and calm, able to respond to questions. Patient decided to change code status to DNR/DNI, expressed to multiple providers including Dr. Mishra, Dr. Merritt, and myself. Code status changed in chart. Patient expressed I want to go home. Today patient had multiple further episodes of SVT/VT, during SVT vagal maneuvers were unsuccessful therefore was given pushes of metoprolol tartrate 5 mg IV. She was given a total of 4 throughout the day. Also given diltiazem 10 mg IV x1. She continues on amiodarone 200 mg BID and metoprolol tartrate 25 mg BID through the NG tube. During a few seconds of VT, tele strip does seen to indicate that the patient was shocked once. Plan is to manage the episodes symptomatically, and provide pushes of antipsychotics or pain medication as needed if patient is anxious or uncomfortable. 11/21/2024: Patient is seen and examined at bedside in the ICU. Overnight, patient was noted to have SVT/VT for over 20 to 30 minutes for which patient was given a dose of metoprolol 5 mg following which it resolved after few minutes. Vitals are stable and patient is on oxygen, 3 L/min. Able to respond to some questions appropriately but still appears to be confused. Able to answer her name, date of , place. Still noted to have multiple episodes of SVT and VT but patient does not have any complaints and noted to have blood pressures within normal limits. Labs done this morning showed hemoglobin 8.5, platelets 121, BUN 38, creatinine 5.3, sodium 131. Received hemodialysis for about 2 hours 47 minutes but later discontinued as patient continued to get multiple episodes of arrhythmias and found to have drop in blood pressure for which patient was on Levophed for a short period of time and later weaned off. Will continue current management. business services sales representative referral was done. Talked to the point of contact, Evelyn and he wants to proceed with the hospice at the [facility] as patient does not have any family members to support at home. Looking for nursing facility placement. Patient likely to have poor prognosis in the setting of CHF, ESRD, recurrent arrhythmias due to aneurysm and her poor mental status. Exam Vital Signs Temp Pulse Resp BP Pulse Ox O2 Del Method O2 Flow Rate 98.2 F 96 26 H 118/58 L 98 Nasal Cannula 2 11/21/24 16:01 11/21/24 16:01 11/21/24 16:01 11/21/24 16:01 11/21/24 16:01 11/21/24 16:01 11/21/24 16:01 FiO2 28 11/21/24 11:55 Narrative Exam General: Awake, resting comfortably HEENT: Normocephalic, atraumatic, mucous membranes dry. Heart: regular rate and rhythm, no murmurs. Lungs: B/L diffuse inspiratory crackles and transmitted sounds heard Abdomen: Soft, nondistended, nontender, positive bowel sounds. ?No guarding or rebound tenderness. Neurologic: No gross neurological deficits noted. Extremities: No edema. Left AV fistula noted. 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 Right upper extremity swelling and oozing noted from that site Skin: No rash. ecchymotic patches noted on right arm and at the site of IV catheters Objective Labs 11/21/24 05:39 11/21/24 05:39 Labs: Laboratory Results - last 24 hr 11/18/24 11/18/24 11/20/24 04:30 06:36 23:20 WBC RBC Hgb Hct MCV MCH MCHC RDW Std Deviation Plt Count Neut % (Auto) Lymph % (Auto) [place] % (Auto) Eos % (Auto) Baso % (Auto) Neut # (Auto) Lymph # (Auto) [place] # (Auto) Eos # (Auto) Baso # (Auto) Immature Gran # (Auto) Absolute Nucleated RBC Immature Gran % Nucleated RBC % Sodium Potassium 4.3 Chloride Carbon Dioxide Anion Gap BUN Creatinine Estim Creat Clear Calc eGFR BUN/Creatinine Ratio Glucose Calculated Osmolality Calcium 8.8 Corrected Calcium Phosphorus 5.1 Magnesium 2.5 Total Bilirubin AST ALT Alkaline Phosphatase Total Protein Albumin Globulin Albumin/Globulin Ratio Misc Test Result See Sep Rpt Crossmatch See Detail 11/21/24 05:39 WBC 9.6 RBC 2.89 L Hgb 8.5 L Hct 26.0 L MCV 90 MCH 29.4 MCHC 32.7 RDW Std Deviation 57.7 H Plt Count 121 L Neut % (Auto) 76 Lymph % (Auto) 10 [place] % (Auto) 11 Eos % (Auto) 2 Baso % (Auto) 0 Neut # (Auto) 7.3 Lymph # (Auto) 1.0 [place] # (Auto) 1.1 H Eos # (Auto) 0.2 Baso # (Auto) 0.0 Immature Gran # (Auto) 0.12 H Absolute Nucleated RBC 0.00 Immature Gran % 1 H Nucleated RBC % 0 Sodium 131 L Potassium 4.3 Chloride 93 L Carbon Dioxide 22.4 Anion Gap 16 BUN 38 H Creatinine 5.3 H* D Estim Creat Clear Calc 9.8 L eGFR 8 L* BUN/Creatinine Ratio 7 L Glucose 87 Calculated Osmolality 270 L Calcium 8.9 Corrected Calcium 9.6 Phosphorus Magnesium 2.5 Total Bilirubin 0.3 AST 17 ALT 8 L Alkaline Phosphatase 108 D Total Protein 4.7 L Albumin 3.1 L Globulin 1.6 L Albumin/Globulin Ratio 1.9 Misc Test Result Crossmatch ABG Interpretation ABG results: 11/11/24 11/11/24 11/12/24 04:01 07:38 04:55 ABG pH 7.14 L* 7.37 D 7.26 L D ABG pCO2 71 H* 42 D 44 ABG pO2 116 H 97 95 ABG HCO3 24 24 20 ABG O2 Saturation 97 99 H 98 ABG Base Excess -6 L -1 -7 L 11/12/24 11/13/24 11/14/24 07:35 04:13 04:35 ABG pH Cancelled 7.42 D 7.46 H ABG pCO2 Cancelled 48 40 ABG pO2 Cancelled 79 L 106 D ABG HCO3 Cancelled 31 H 29 H ABG O2 Saturation Cancelled 97 99 H ABG Base Excess Cancelled 6 H 4 H 11/15/24 11/16/24 11/16/24 04:58 05:20 11:55 ABG pH 7.47 H 7.29 L D 7.41 D ABG pCO2 39 51 H D 39 D ABG pO2 100 234 H D 160 H D ABG HCO3 29 H 24 24 ABG O2 Saturation 99 H 100 H 100 H ABG Base Excess 5 H -2 0 11/17/24 11/17/24 11/18/24 09:09 16:45 05:00 ABG pH 7.48 H 7.36 D 7.40 ABG pCO2 33 47 D 44 ABG pO2 132 H D 154 H D 203 H D ABG HCO3 25 27 H 27 H ABG O2 Saturation 101 H 100 H 101 H ABG Base Excess 1 1 2 11/19/24 11/20/24 04:14 04:42 ABG pH 7.41 7.43 ABG pCO2 43 38 ABG pO2 205 H 62 L D ABG HCO3 27 H 25 ABG O2 Saturation 101 H 94 ABG Base Excess 3 1 Quality Measures Quality Measures none Advance care planning discussed with:: other Assessment & Plan Assessment Current Active Medications: Generic Name Dose Route Start Last Admin Trade Name Freq PRN Reason Stop Dose Admin Acetaminophen 650 mg 11/11/24 05:17 Acetaminophen 325 Mg Tablet PO 12/11/24 05:16 Q6H PRN Fever >100.5 Albuterol/Ipratropium 3 ml 11/11/24 07:00 11/21/24 13:55 Albuterol/Ipratropium (Duoneb) Rt Poonam 3 Ml Nebu INH 12/11/24 06:59 3 ml Q4HRRT RAYO Administration Amiodarone HCl 200 mg 11/18/24 09:00 11/21/24 08:32 Amiodarone Hcl 200 Mg Tablet NG 12/18/24 08:59 200 mg BID RAYO Administration Aspirin 81 mg 11/11/24 09:00 11/21/24 08:31 Aspirin 81 Mg Chew NG 12/11/24 08:59 81 mg QDAY RAYO Administration Atorvastatin Calcium 40 mg 11/11/24 21:00 11/20/24 20:02 Atorvastatin Calcium 20 Mg Tablet NG 12/11/24 20:59 40 mg HS RAYO Administration Bisacodyl 10 mg 11/16/24 10:09 11/16/24 10:44 Bisacodyl 10 Mg Supp VT 12/16/24 10:08 10 mg QDAY PRN Administration CONSTIPATION Protocol Dextrose 25 ml 11/12/24 06:24 11/20/24 06:12 Dextrose 50%-Water Inj 50 Ml Syringe IV 12/12/24 06:23 25 ml Q15MIN PRN Administration BG 50-70 responsive npo pt Dextrose 50 ml 11/12/24 06:24 11/18/24 18:50 Dextrose 50%-Water Inj 50 Ml Syringe IV 12/12/24 06:23 50 ml Q15MIN PRN Administration BG <50 OR BG <70 & pt unresponsive Famotidine 20 mg 11/11/24 09:00 11/21/24 08:31 Famotidine Inj 10 Mg/Ml Vial 2 Ml IVP 12/11/24 08:59 20 mg QDAY RAYO Administration Protocol Glucagon 1 mg 11/12/24 06:24 Glucagon Inj 1 Mg Vial IM Q15MIN PRN BG <70, and no IV access Haloperidol Lactate 5 mg 11/19/24 15:27 11/20/24 08:57 Haloperidol Lact Inj 5 Mg/Ml Vial IV 11/24/24 15:26 5 mg Q6HR PRN Administration AGITATION (SEVERE) Heparin Sodium (Porcine) 5,000 unit 11/19/24 06:00 11/21/24 14:27 Heparin Sod Inj 5000 Unit/Ml Vial SC 12/03/24 05:59 5,000 unit Q8HR RAYO Administration Norepinephrine/Dextrose 8 mg in 250 mls @ 6.476 mls/hr 11/11/24 16:05 11/21/24 14:00 Levophed In D5w 8mg/250ml IV 12/11/24 16:04 0 mcg/kg/min .Q24H PRN 0 mls/hr PER PROTOCOL Titration Protocol 0.05 MCG/KG/MIN Albumin Human 25 gm in 100 mls @ 100 mls/min 11/14/24 08:47 11/14/24 18:41 Albuminar-25 Ivpb IV Infused PRN PRN Infusion DIALYSIS Propofol 1,000 mg in 100 mls @ 2.13 mls/hr 11/18/24 20:25 11/19/24 10:27 Diprivan Ivpb IV 12/18/24 20:24 0 mcg/kg/min .Q24H PRN 0 mls/hr PER PROTOCOL Titration Protocol 5 MCG/KG/MIN Dexmedetomidine/Sodium Chloride 400 mcg in 100 mls @ 3.375 mls/hr 11/18/24 20:27 11/20/24 12:09 Precedex Ivpb IV 12/13/24 09:42 0 mcg/kg/hr .Q24H PRN 0 mls/hr Per PROTOCOL Titration Protocol 0.2 MCG/KG/HR Fentanyl Citrate 2,500 mcg in 250 mls @ 2.5 mls/hr 11/18/24 20:27 11/19/24 12:19 Sublimaze Inj 2,500 Mcg/250 Ml Bag IV 11/22/24 16:07 Infused .Q24H PRN Titration PER PROTOCOL Protocol 25 MCG/HR Labetalol HCl 20 mg 11/19/24 14:42 Labetalol Inj 5 Mg/Ml Vial 20 Ml IVP 12/19/24 17:59 Q4HR PRN hypertension Magnesium Hydroxide 30 ml 11/16/24 10:08 11/16/24 10:46 Milk Of Magnesia Susp 30 Ml Udc PO 12/16/24 10:07 30 ml QDAY PRN Administration CONSTIPATION Protocol Metoprolol Tartrate 25 mg 11/14/24 11:30 11/21/24 08:32 Metoprolol Tartrate 25 Mg Tablet NG 12/14/24 11:29 25 mg BID RAYO Administration Midodrine 10 mg 11/11/24 22:00 11/21/24 14:34 Midodrine 5 Mg Tablet NG 12/11/24 21:59 Not Given TID RAYO Ondansetron HCl 4 mg 11/11/24 05:17 Ondansetron Inj 2 Mg/Ml Inj 2 Ml IVP 12/11/24 05:16 Q6H PRN NAUSEA OR VOMITING Protocol Pharmacy Consult 1 each 11/11/24 05:27 Pharmacy Renal Dose Adjustment 1 Ea XX 12/11/24 05:26 PRN PRN CONSULT Quetiapine Fumarate 50 mg 11/20/24 21:00 11/20/24 20:02 Quetiapine Fumarate 25 Mg Tablet PO 12/20/24 20:59 50 mg HS ARYO Administration Sacubitril/Valsartan 1 tab 11/18/24 11:15 11/21/24 08:30 Sacubitril 24 Mg/Valsartan 26 Mg Tablet PO 12/18/24 11:14 1 tab BID RAYO Administration Sevelamer Carbonate 0.8 gm 11/14/24 08:00 11/21/24 11:43 Sevelamer Carbonate 0.8 Gm Packet (Non-Formulary) NG 12/14/24 07:59 0.8 gm TIDWM RAYO Administration Sodium Chloride 3 ml 11/11/24 04:43 Sodium Chloride Rt Poonam 0.9% 3 Ml Nebu INH 12/11/24 04:42 PRN PRN SOLN Plan The patient is a 74-year-old female with significant past medical history of CHF, coronary artery disease with multiple MIs s/p stents, COPD on 3 L home oxygen, ESRD on hemodialysis, Thursday, Thursday, , Thursday, A-fib with pacemaker, brought in by EMS with chief complaint of acute SOB. The patient was intubated and admitted to ICU for further management of acute hypoxic hypercapnic respiratory failure secondary to COPD exacerbation. Neuro: #Acute encephalopathy - resolved - Patient was noted to have encephalopathy due to CO2 narcosis at the time of admission, later CO2 narcosis resolved with mechanical ventilation - Patient was extubated as of 11/16/2024, but still appears to be altered and delirious, thinking that someone is trying to kill her, Likely due to hospital induced delirium - On 11/17/2024, around 1:30 PM, patient developed acute respiratory failure with worsening of the mental status for which patient was reintubated again and kept on mechanical ventilator - 11/20/2024 patient was extubated and weaned off Precedex, doing well and calm Plan - Frequent reorientation, natural light, encourage movement, avoid delirium - Started on Seroquel 50 mg at bedtime CVS: # CAD s/p multiple stents # S/p ICD # HFrEF, EF 30% in 2024 22 ischemic cardiomyopathy - Though patient presented with acute SOB, was found to have BNP 1999, no JVD or peripheral edema noted - EKG showed paced rhythm with ST elevation in 1, aVL and reciprocal depressions in 2, 3 and aVF suggestive of old ME - ECHO on 11/16/2024 - Findings are consistent with ischemic cardiomyopathy severe LV dysfunction heavy mitral annulus calcification calcification mitral apparatus with moderate to severe mitral stenosis and mild mitral regurgitation. No evidence of significant pulmonary hypertension. - Talked to congressional representative, Dr. 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 with severe mitral valve calcification Plan - Low-sodium diet - Fluid restriction to 1500 cc daily - Continue on GDMT - Metoprolol 25 mg twice daily and Entresto 24/26 mg twice daily #Episode of SVT/VT 11/13/2024 Patient was given adenosine 6 mg IV x1, metoprolol 5 mg IV x1, diltiazem 10 mg IV x1 with conversion On 11/15/2023, when trying to wean patient off the sedation and kept on pressure support mode, patient became more agitated and developed multiple episodes of SVT and VT Patient has received amiodarone drip loading bag course x3 Plan - Continuous telemetry - Continue amiodarone 200 mg BID - Continue metoprolol tartarate 25mg twice daily through OG tube - Patient is using amiodarone 200 mg twice daily at home, as patient developed recurrent episodes of SVT/VT, started on amiodarone drip on 11/14/2024, and transition to oral amiodarone but as of 11/16/2024, patient was noted to have multiple episodes of SVT, VT which was also confirmed by ICD interrogation and patient noted to receive shock. As the patient is continuously developing episodes of SVT/VT, patient was given amiodarone bolus followed by drip. # History of atrial fibrillation Patient never had documented episodes of atrial fibrillation but on pacemaker tracing, noted to have atrial fibrillation for which patient was started on amiodarone and Eliquis - Patient is using Eliquis at home - Currently on amiodarone 200mg twice daily through OG tube. 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 Escudero Pulmonology: #Acute hypoxic hypercapnic respiratory failure, resolved #COPD exacerbation, resolved #Pulmonary edema Likely in the setting of worsening disease or superimposed bacterial infection and pulmonary edema in the setting of ESRD, Ongoing ischemic heart disease -Patient is a initially intubated on 11/11/2024 in view of acute hypoxic hypercapnic respiratory failure secondary to COPD exacerbation and pulmonary edema in the setting of CAD and ESRD - Patient is extubated on 11/16/2024 and is stable till 11/17/2024. Around 1:30 PM on 11/17/2024, patient developed sudden acute respiratory failure likely secondary due to pulmonary edema, ongoing CAD and patient was reintubated at that time Diagnostic test: - Tested negative for influenza A, B and COVID-19 - ABG at the time of admission showed pH 7.14, pCO2 71, PaO2 116, bicarb 24, oxygen saturation 97. - Chest x-ray showed cardiomegaly, infiltrates more on the right basilar area. - Labs showed WBC 13.5 - Tested negative for influenza A and B, COVID-19 - Blood cultures came back negative and 80 secretions came back positive for Acinetobacter Iwofii Treatment: - Patient is sedated, intubated and mechanically ventilated on 11/10/2024 - Received methylprednisolone 125 Mg IV x 1 in the ED - Started on methylprednisolone 60 Mg IV daily, completed 5 days on 11/14/2024 - Nebulizations every fourth of every, DuoNebs - Tried to wean the patient off ventilator on 11/13, 11/14 but noted to go to SVT and VT on both days. - Patient was extubated on 11/16/2024 and started on BiPAP and oxygen as needed and got reintubated on - Started on Unasyn as patient ET secretions culture tested positive for Acinetobacter Iwofii, stopped as of 11/18/2024 as patient completed 7 days course of antibiotics and no suspicion of active ongoing pneumonia - Started on OxyMask, 3 L oxygen which is her baseline. GI: - No active problems Renal: #ESRD on HD -Patient is having 4 dialysis sessions per week At the time of admission, pH of 7.14, pCO2 71, lactic acid 4.1 Plan - Floor Coverings Salesperson Dr. Mishra consulted, appreciate recommendations - Received HD session on 11/12/2024, 11/14/2024, 11/16/2024, 11/18/2024, 11/20/2024, 11/21/2024 - Will need HD as per her routine schedule - Will avoid nephrotoxic medications and renally dose medications - Needing vasopressor during the dialysis Hematology: #Leukocytosis, resolved Reactive versus steroid versus infective Secondary to pneumonia and COPD exacerbation - Continue to treat underlying cause #Normocytic normochromic anemia DDx: Inflammatory anemia due to chronic kidney disease, versus nutritional deficiency versus malabsorption - Workup as an outpatient basis - Later patient found to be having low hemoglobin, 6.7 likely due to blood loss from Right thigh hematoma from the procedure - Transfused 2PRBC as of 11/18/2024 during HD # Thrombocytopenia, resolving - At the time of admission is 177 - Patient is started on heparin drip on 11/13/2024 in view of suspected ongoing acute ischemic heart disease. - Since then, noted to have downtrend in platelet count - Platelet count as of 11/15/2024 is 97,000 and on 11/16/2024 is within normal limits -->11/17, [id number] ---> 11/18, 94,000 --> 11/21, [id number] - Suspected HIT in the setting of heparin and thrombocytopenia, - HIT panel is sent, came back negative Plan - Will continue to monitor platelet count. ID: #Suspected community-acquired pneumonia - Initially patient was started on ceftriaxone and doxycycline, received ceftriaxone for 8 days and later Unasyn was started as patient sputum cultures came back positive for Acinetobacter Iwofii - ET secretions culture showed Acinetobacter for which Unasyn was started and stopped on 11/18/2024 Health maintenance: Dispo: ICU for further management of acute hypoxic hypercapnic respiratory failure secondary to COPD exacerbation, Pulmonary edema Diet: on OG tube feeds Lines: Left IJ central line, peripheral lines DVT prophylaxis: Heparin CODE STATUS: Full code Patient plan of care was discussed with the service delivery analyst, Dr. Merritt. Elmer Husain, PGY2
--- NOTE | 2024-11-21 17:40 | PC.SS ---
NEEDLE VALVE OPERATOR conducted phone contact with patient?s friend, Riddhi Leonard; to confirm designation as surrogate medical decision maker on behalf of the patient.? Ms. Leonard confirmed designation but informed NEEDLE VALVE OPERATOR that she felt that surrogate medical decision maker should be patient?s friend, Jose Bose.? Ms. Leonard stated that Mr. Bose has provided career transition specialist services on behalf of the patient and feels that his initial designation as surrogate medical decision maker was warranted.? Per Ms. Leonard; she only accepted designation because staff could not get a hold of Mr. Bose.? Ms. Leonard informed NEEDLE VALVE OPERATOR that she has been in contact with Mr. Bose and he relayed that he was no longer the patient?s surrogate medical decision maker.? Ms. Leonard requested that NEEDLE VALVE OPERATOR reach out to Mr. Bose to inquire if he would resume designation of surrogate medical decision maker.? NEEDLE VALVE OPERATOR reached out to Mr. Bose and relayed discussion held between Ms. Leonard and NEEDLE VALVE OPERATOR.? Mr. Bose stated that he would be receptive to resuming role of patient?s surrogate medical decision maker.? Discussed that recommendation is to transition the patient to hospice services.? Mr. Bose acknowledged that recommendation is appropriate.? Discussed that transition plan would be for patient to discharge to SNF with hospice.? No preferred hospice agency identified.? Mr. Bose confirmed plan for patient to discharge to SNF with hospice.? NEEDLE VALVE OPERATOR updated residential team.
--- NOTE | 2024-11-21 18:00 | PC.SS ---
Hospice referral submitted on [facility], [place]. Response pending.
--- NOTE | 2024-11-21 18:01 | PC.SS ---
SNF referral submitted on [facility]. Responses are pending.
--- NOTE | 2024-11-21 20:39 | ESPR_ITS ---
<Statement entered by Jessenia Escudero MD - 11/24/24 22:39> I personally evaluated the patient and then designated patient still in critical condition having recurrent episodes of VT but more stable extubated appears to be tolerating dialysis well so far continues on amiodarone per protocol and for scar based recurrent VT VF CODE STATUS changed to DNR/DNI but still all the medical management continue. Prognosis poor condition critical patient does not meet criteria to have bypass surgery to calcified aorta and also even high risk PCI cannot be done because extensive vascular disease heavy calcification of aorta. I evaluated the patient with the resident physician PGY 2 and resident team agree with treatment plan documented as documented by Dr. TOVAR will continue to monitor patient Documentation for date of: 11/21/24 Subjective Subjective Interval history: No acute overnight events. No new or worsening symptoms. She is still critically ill, not having any chest pain or shortness of breath. Blood pressure is on the low side, off pressers. Continued on inpatient HD. Exam Vital Signs Temp Pulse Resp BP Pulse Ox O2 Del Method O2 Flow Rate 98.4 F 92 38 H 88/59 L 88 L Nasal Cannula 3 11/21/24 20:01 11/21/24 20:01 11/21/24 20:01 11/21/24 20:01 11/21/24 20:01 11/21/24 20:01 11/21/24 20:01 FiO2 28 11/21/24 11:55 Narrative Exam General: Awake, resting comfortably HEENT: Normocephalic, atraumatic, mucous membranes dry. Heart: regular rate and rhythm, no murmurs. Lungs: B/L diffuse inspiratory crackles and transmitted sounds heard Abdomen: Soft, nondistended, nontender, positive bowel sounds. ?No guarding or rebound tenderness. Neurologic: No gross neurological deficits noted. Extremities: No edema. Left AV fistula noted. 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 Right upper extremity swelling and oozing noted from that site Skin: No rash. ecchymotic patches noted on right arm and at the site of IV catheters Objective Labs 11/21/24 05:39 11/21/24 05:39 Labs: Laboratory Results - last 24 hr 11/18/24 11/18/24 11/20/24 04:30 06:36 23:20 WBC RBC Hgb Hct MCV MCH MCHC RDW Std Deviation Plt Count Neut % (Auto) Lymph % (Auto) [place] % (Auto) Eos % (Auto) Baso % (Auto) Neut # (Auto) Lymph # (Auto) [place] # (Auto) Eos # (Auto) Baso # (Auto) Immature Gran # (Auto) Absolute Nucleated RBC Immature Gran % Nucleated RBC % Sodium Potassium 4.3 Chloride Carbon Dioxide Anion Gap BUN Creatinine Estim Creat Clear Calc eGFR BUN/Creatinine Ratio Glucose Calculated Osmolality Calcium 8.8 Corrected Calcium Phosphorus 5.1 Magnesium 2.5 Total Bilirubin AST ALT Alkaline Phosphatase Total Protein Albumin Globulin Albumin/Globulin Ratio Misc Test Result See Dec Rpt Crossmatch See Detail 11/21/24 05:39 WBC 9.6 RBC 2.89 L Hgb 8.5 L Hct 26.0 L MCV 90 MCH 29.4 MCHC 32.7 RDW Std Deviation 57.7 H Plt Count 121 L Neut % (Auto) 76 Lymph % (Auto) 10 [place] % (Auto) 11 Eos % (Auto) 2 Baso % (Auto) 0 Neut # (Auto) 7.3 Lymph # (Auto) 1.0 [place] # (Auto) 1.1 H Eos # (Auto) 0.2 Baso # (Auto) 0.0 Immature Gran # (Auto) 0.12 H Absolute Nucleated RBC 0.00 Immature Gran % 1 H Nucleated RBC % 0 Sodium 131 L Potassium 4.3 Chloride 93 L Carbon Dioxide 22.4 Anion Gap 16 BUN 38 H Creatinine 5.3 H* D Estim Creat Clear Calc 9.8 L eGFR 8 L* BUN/Creatinine Ratio 7 L Glucose 87 Calculated Osmolality 270 L Calcium 8.9 Corrected Calcium 9.6 Phosphorus Magnesium 2.5 Total Bilirubin 0.3 AST 17 ALT 8 L Alkaline Phosphatase 108 D Total Protein 4.7 L Albumin 3.1 L Globulin 1.6 L Albumin/Globulin Ratio 1.9 Misc Test Result Crossmatch ABG Interpretation ABG results: 11/11/24 11/11/24 11/12/24 04:01 07:38 04:55 ABG pH 7.14 L* 7.37 D 7.26 L D ABG pCO2 71 H* 42 D 44 ABG pO2 116 H 97 95 ABG HCO3 24 24 20 ABG O2 Saturation 97 99 H 98 ABG Base Excess -6 L -1 -7 L 11/12/24 11/13/24 11/14/24 07:35 04:13 04:35 ABG pH Cancelled 7.42 D 7.46 H ABG pCO2 Cancelled 48 40 ABG pO2 Cancelled 79 L 106 D ABG HCO3 Cancelled 31 H 29 H ABG O2 Saturation Cancelled 97 99 H ABG Base Excess Cancelled 6 H 4 H 11/15/24 11/16/24 11/16/24 04:58 05:20 11:55 ABG pH 7.47 H 7.29 L D 7.41 D ABG pCO2 39 51 H D 39 D ABG pO2 100 234 H D 160 H D ABG HCO3 29 H 24 24 ABG O2 Saturation 99 H 100 H 100 H ABG Base Excess 5 H -2 0 11/17/24 11/17/24 11/18/24 09:09 16:45 05:00 ABG pH 7.48 H 7.36 D 7.40 ABG pCO2 33 47 D 44 ABG pO2 132 H D 154 H D 203 H D ABG HCO3 25 27 H 27 H ABG O2 Saturation 101 H 100 H 101 H ABG Base Excess 1 1 2 11/19/24 11/20/24 04:14 04:42 ABG pH 7.41 7.43 ABG pCO2 43 38 ABG pO2 205 H 62 L D ABG HCO3 27 H 25 ABG O2 Saturation 101 H 94 ABG Base Excess 3 1 Quality Measures Quality Measures none Advance care planning discussed with:: patient Assessment & Plan Assessment Current Active Medications: Generic Name Dose Route Start Last Admin Trade Name Freq PRN Reason Stop Dose Admin Acetaminophen 650 mg 11/11/24 05:17 Acetaminophen 325 Mg Tablet PO 12/11/24 05:16 Q6H PRN Fever >100.5 Albuterol/Ipratropium 3 ml 11/11/24 07:00 11/21/24 18:55 Albuterol/Ipratropium (Duoneb) Rt Poonam 3 Ml Nebu INH 12/11/24 06:59 3 ml Q4HRRT RAYO Administration Amiodarone HCl 200 mg 11/18/24 09:00 11/21/24 08:32 Amiodarone Hcl 200 Mg Tablet NG 12/18/24 08:59 200 mg BID RAYO Administration Aspirin 81 mg 11/11/24 09:00 11/21/24 08:31 Aspirin 81 Mg Chew NG 12/11/24 08:59 81 mg QDAY RAYO Administration Atorvastatin Calcium 40 mg 11/11/24 21:00 11/20/24 20:02 Atorvastatin Calcium 20 Mg Tablet NG 12/11/24 20:59 40 mg HS RAYO Administration Bisacodyl 10 mg 11/16/24 10:09 11/16/24 10:44 Bisacodyl 10 Mg Supp MN 12/16/24 10:08 10 mg QDAY PRN Administration CONSTIPATION Protocol Dextrose 25 ml 11/12/24 06:24 11/20/24 06:12 Dextrose 50%-Water Inj 50 Ml Syringe IV 12/12/24 06:23 25 ml Q15MIN PRN Administration BG 50-70 responsive npo pt Dextrose 50 ml 11/12/24 06:24 11/18/24 18:50 Dextrose 50%-Water Inj 50 Ml Syringe IV 12/12/24 06:23 50 ml Q15MIN PRN Administration BG <50 OR BG <70 & pt unresponsive Famotidine 20 mg 11/11/24 09:00 11/21/24 08:31 Famotidine Inj 10 Mg/Ml Vial 2 Ml IVP 12/11/24 08:59 20 mg QDAY RAYO Administration Protocol Glucagon 1 mg 11/12/24 06:24 Glucagon Inj 1 Mg Vial IM Q15MIN PRN BG <70, and no IV access Haloperidol Lactate 5 mg 11/19/24 15:27 11/20/24 08:57 Haloperidol Lact Inj 5 Mg/Ml Vial IV 11/24/24 15:26 5 mg Q6HR PRN Administration AGITATION (SEVERE) Heparin Sodium (Porcine) 5,000 unit 11/19/24 06:00 11/21/24 14:27 Heparin Sod Inj 5000 Unit/Ml Vial SC 12/03/24 05:59 5,000 unit Q8HR RAYO Administration Norepinephrine/Dextrose 8 mg in 250 mls @ 6.476 mls/hr 11/11/24 16:05 11/21/24 14:00 Levophed In D5w 8mg/250ml IV 12/11/24 16:04 0 mcg/kg/min .Q24H PRN 0 mls/hr PER PROTOCOL Titration Protocol 0.05 MCG/KG/MIN Albumin Human 25 gm in 100 mls @ 100 mls/min 11/14/24 08:47 11/14/24 18:41 Albuminar-25 Ivpb IV Infused PRN PRN Infusion DIALYSIS Propofol 1,000 mg in 100 mls @ 2.13 mls/hr 11/18/24 20:25 11/19/24 10:27 Diprivan Ivpb IV 12/18/24 20:24 0 mcg/kg/min .Q24H PRN 0 mls/hr PER PROTOCOL Titration Protocol 5 MCG/KG/MIN Dexmedetomidine/Sodium Chloride 400 mcg in 100 mls @ 3.375 mls/hr 11/18/24 20:27 11/20/24 12:09 Precedex Ivpb IV 12/13/24 09:42 0 mcg/kg/hr .Q24H PRN 0 mls/hr Per PROTOCOL Titration Protocol 0.2 MCG/KG/HR Fentanyl Citrate 2,500 mcg in 250 mls @ 2.5 mls/hr 11/18/24 20:27 11/19/24 12:19 Sublimaze Inj 2,500 Mcg/250 Ml Bag IV 11/22/24 16:07 Infused .Q24H PRN Titration PER PROTOCOL Protocol 25 MCG/HR Labetalol HCl 20 mg 11/19/24 14:42 Labetalol Inj 5 Mg/Ml Vial 20 Ml IVP 12/19/24 17:59 Q4HR PRN hypertension Magnesium Hydroxide 30 ml 11/16/24 10:08 11/16/24 10:46 Milk Of Magnesia Susp 30 Ml Udc PO 12/16/24 10:07 30 ml QDAY PRN Administration CONSTIPATION Protocol Metoprolol Tartrate 25 mg 11/14/24 11:30 11/21/24 08:32 Metoprolol Tartrate 25 Mg Tablet NG 12/14/24 11:29 25 mg BID RAYO Administration Midodrine 10 mg 11/11/24 22:00 11/21/24 14:34 Midodrine 5 Mg Tablet NG 12/11/24 21:59 Not Given TID RAYO Ondansetron HCl 4 mg 11/11/24 05:17 Ondansetron Inj 2 Mg/Ml Inj 2 Ml IVP 12/11/24 05:16 Q6H PRN NAUSEA OR VOMITING Protocol Pharmacy Consult 1 each 11/11/24 05:27 Pharmacy Renal Dose Adjustment 1 Ea XX 12/11/24 05:26 PRN PRN CONSULT Quetiapine Fumarate 50 mg 11/20/24 21:00 11/20/24 20:02 Quetiapine Fumarate 25 Mg Tablet PO 12/20/24 20:59 50 mg HS RAYO Administration Sacubitril/Valsartan 1 tab 11/18/24 11:15 11/21/24 08:30 Sacubitril 24 Mg/Valsartan 26 Mg Tablet PO 12/18/24 11:14 1 tab BID RAYO Administration Sevelamer Carbonate 0.8 gm 11/14/24 08:00 11/21/24 18:39 Sevelamer Carbonate 0.8 Gm Packet (Non-Formulary) NG 12/14/24 07:59 0.8 gm TIDWM RAYO Administration Sodium Chloride 3 ml 11/11/24 04:43 Sodium Chloride Rt Poonam 0.9% 3 Ml Nebu INH 12/11/24 04:42 PRN PRN SOLN Plan The patient is a 74-year-old female with a history of CHF, CAD with multiple MIs and stents, COPD on 3 L home oxygen, ESRD on hemodialysis, and atrial fibrillation with pacemaker, who presented on 11/11/24 via EMS with acute shortness of breath. At home, she was hypoxic with oxygen saturation in the 80s and received DUONEB during transport. In the ED, she was saturating at 84% on high-flow CPAP, hypertensive to 200/76 mmHg, and altered. ABG demonstrated acute hypercapnic and hypoxic respiratory failure (pH 7.14, pCO? 71, pO? 116). CXR showed right lower lobe pneumonia. Labs revealed leukocytosis, elevated BNP (2006), elevated D-dimer, mild troponin rise (0.046), and creatinine consistent with ESRD. She was intubated, given METHYLPREDNISOLONE, fluids, CEFIXIME, and VANCOMYCIN, and admitted to the ICU. 1. Acute hypoxic respiratory failure secondary to chronic obstructive lung disease and acute decompensated congestive heart failure, flash pulmonary edema requiring mechanical ventilation. 2. Acute non-ST segment elevation myocardial infarction with persistent ST segment changes, chronically elevated due to left ventricular inferobasal and posterobasal aneurysm. 3. Coronary artery disease status post multivessel stent placement. 4. End-stage renal disease on hemodialysis. 5. Severe chronic obstructive lung disease. 6. Paroxysmal atrial fibrillation. 7. Vtach 8. Pulmonary edema Cardiac catheterization demonstrated extensive vascular and myocardial disease. Hemodynamics showed elevated LVEDP (18 mmHg) with no gradient across the aortic valve. LV angiogram revealed extensive inferoapical and apical akinesis with aneurysmal dilation, severe calcification, and EF ~30%. Coronary angiography showed a heavily calcified RCA with patent stents supplying nonviable myocardium, and severe 80% ostial left main stenosis with heavy calcification. Additional findings included diffuse calcification of the aorta, mitral annulus, and iliofemoral vessels, with severe stenosis of the left common femoral artery. RECOMMENDATIONS: Given critical left main disease, severe LV dysfunction, and diffuse calcification of the aorta and peripheral vasculature, the patient is not a candidate for PCI, Impella-assisted intervention, or CABG. With end-stage renal disease, recurrent hospitalizations, refractory ventricular arrhythmias, and high procedural risk, further revascularization is not feasible. Recommendation is for medical management only. Arrangements have been made for hospice, appropriatly. Case was discussed with attending physician, Dr. Escudero. Richard Tovar, PGY II This document was transcribed using voice recognition technology. Minor inaccuracies may be present.
[2024-11-21] MEDS: ATORVASTATIN CALCIUM 20 MG TABLET 40 MG NG (21:07)
[2024-11-22] VITALS (36 sets, daily range): BP systolic 84–177; BP diastolic 36–84; PULSE 82–170; RESP 14–40; TEMP 36.5–37.2; O2SAT 83–100; BMI 26.6
[2024-11-22] MEDS: ALBUTEROL/IPRATROPIUM (Duoneb) RT SOL 3 ML NEBU INH ×4 (02:50→14:38)
[2024-11-22] MEDS: MIDODRINE 5 MG TABLET 10 MG NG ×2 (05:10→14:31)
[2024-11-22] MEDS: HEPARIN SOD INJ 5000 UNIT/ML VIAL SC ×3 (05:10→21:38)
[2024-11-22] MEDS: MORPHINE SULF INJ 10 MG/ML VIAL IVP ×2 (05:24→13:43)
[2024-11-22 06:43] LABS: Basophils # (Auto) 0.0 Thou/mm3 (0.0-0.2); Basophils % (Auto) 0 % (0-2.5); Eosinophils # (Auto) 0.0 Thou/mm3 (0.0-0.5); Eosinophils % (Auto) 0 % (0-10); Hematocrit 26.6 % (36.0-46.0); Immature Granulocytes Auto 0.17 Thou/mm3 (0.00-0.00); Lymphocytes # (Auto) 0.5 Thou/mm3 (1.0-4.8); Lymphocytes % (Auto) 5 % (10-50); Mean Corpuscular HGB Conc 31.6 g/dl (31.0-37.0); Mean Corpuscular Hemoglobin 29.0 pg (25.0-35.0); Mean Corpuscular Volume 92 fL (80-100); Monocytes # (Auto) 0.9 Thou/mm3 (0.0-0.8); Monocytes % (Auto) 9 % (0-12); Neutrophils # (Auto) 8.9 Thou/mm3 (1.8-7.7); Neutrophils % (Auto) 84 % (37-80); Nucleated Red Blood Cell # 0.02 Thou/mm3 (0.00-0.00); Nucleated Red Blood Cell % 0 /100 WBC (0); Platelet Count 125 Thou/mm3 (140-440); RDW Standard Deviation 59.5 fL (36.4-46.3); Red Blood Count 2.90 Miln/mm3 (4.00-5.20); White Blood Count 10.6 Thou/mm3 (3.6-11.0)
[2024-11-22 06:58] LABS: Hemoglobin 8.4 g/dL (12.0-16.0)
[2024-11-22 07:36] LABS: Alanine Aminotransferase 10 U/L (10-49); Albumin, Serum 3.1 gm/dL (3.4-4.8); Albumin/Globulin Ratio 1.8 (1.2-2.2); Alkaline Phosphatase 130 U/L (46-116); Anion Gap 18 (7-16); Aspartate Amino Transferase 41 U/L (0-34); BUN/Creatinine Ratio 7 Ratio (12-20); Bilirubin,Total 0.4 mg/dL (0.3-1.2); Blood Urea Nitrogen 30 mg/dL (9-23); Calcium 9.0 mg/dL (8.3-10.6); Calcium (Corrected) 9.7 mg/dL (8.5-10.1); Carbon Dioxide 21.4 mMol/L (20.0-31.0); Chloride 96 mMol/L (98-107); Creatinine (Component) 4.4 mg/dL (0.6-1.3); Estimated Creatinine Clearance 11.8 mL/min (>60); Globulin 1.7 gm/dL (2.3-3.5); Glucose 84 mg/dL (74-106); Magnesium 2.3 mg/dL (1.6-2.6); Osmolality,Calculated 275 (275-295); Potassium 4.2 mMol/L (3.4-5.1); Sodium 135 mMol/L (136-145); Total Protein 4.8 gm/dL (5.7-8.2); eGFR 10 See Note
[2024-11-22] MEDS: ASPIRIN 81 MG CHEW NG (09:10)
[2024-11-22] MEDS: METOPROLOL TARTRATE 25 MG TABLET NG ×2 (09:10→21:40)
[2024-11-22] MEDS: AMIODARONE HCL 200 MG TABLET NG ×2 (09:11→21:39)
[2024-11-22] MEDS: FAMOTIDINE INJ 10 MG/ML VIAL 2 ML 20 MG IVP (09:12)
[2024-11-22] MEDS: SEVELAMER CARBONATE 0.8 GM PACKET (NON-FORMULARY) NG ×3 (09:18→19:00)
--- NOTE | 2024-11-22 10:49 | ESPR_ITS ---
Documentation for date of: 11/22/24 Subjective Subjective Interval history: Reason for consult: ESRD, acute respiratory failure, need for dialysis History of present illness: Mirella Grewal is a 74-year-old F with a PMH of CHF, coronary artery disease with multiple MIs s/p stents, COPD on 3 L home oxygen, ESRD on hemodialysis, Thursday, Thursday, , Thursday, and A-fib with pacemaker, who was brought in by EMS with a chief complaint of acute SOB. Per Internal Medicine team note, the patient called EMS due to SOB, and was saturating around 80% at home. She was given DuoNebs on the way to hospital and, when she presented to the ED, was saturating at 84% on high-flow CPAP. At this point, she was already altered, and was intubated. Internal Medicine team could not obtain further history due to patient already being intubated during their evaluation. Of note, patient has multiple prior hospitalizations for similar presentations of acute hypoxic respiratory failure including in November 2023 and September 2023. In the ED, vitals showed: BP 200/76 HR 79 RR 20 Temp 98.6 SpO2 84% on high flow CPAP, ED Course: CBC showed high WBC 13.5, and low Hgb 11.1 (MCV 96, RDW 63.4). Coagulation panel showed critically elevated D-dimer 2630 but was otherwise within normal limits. ABG showed normal pH 7.37, normal pCO2 42, normal PO2 97, and normal HCO3 24. CMP showed high BUN 39, critically elevated creatinine 6.4, critically low EGFR 6, high lactic acid 4.1, high blood glucose 184, low corrected calcium 7.7, c ritically elevated troponin I 0.046, critically elevated BNP 2005, high TSH 6.61, and low free T4 0.84. UA showed turbid orange urine with a basic pH of 8.0. It also showed 2+ urine protein, 2+ urine blood, high urine RBC 502, high urine WBC 1255, high urine squamous epithelial cells 29, but no urine bacteria. UDS was negative. Rapid RSV was negative. Imaging: Chest x-ray showed moderate congestive heart failure with prominent vascular congestion and perihilar basilar edema. Head CT was unremarkable. Chest CT showed bilateral thyroid nodules, mild heart failure with moderate enlargement of the cardiac contour, bibasilar pneumonia, numerous bilateral positioned metastatic pulmonary nodules, small bilateral pleural effusions, and cholelithiasis. EKG showed old TN. In the ED, patient was received methylprednisone 125 Mg IV x 1, bolus fluid 1 L at the rate 250 cc/h, cefixime 2 g IV x 1, and was started on vancomycin. The patient was intubated and admitted to ICU for further management of acute hypoxic hypercapnic respiratory failure secondary to COPD exacerbation. We, the nephrology team, were consulted for the patient's combined respiratory and metabolic acidosis and need for urgent hemodialysis due to ESRD status. Cardiology is also following. Interval History 11/16/2024: No overnight events. Patient seen and examined at bedside; she continues to be intubated and is unable to comment on her well-being or endorse new complaints or symptoms. Notable labs today include Hgb 9.0, APTT 66.7, blood pH 7.29, Na 127, Cl 88, BUN bump to 46 from 27, creatinine bump to 5.1 from 4.2, eGFR drop to 8 from 11, and phosphorus bump to 8.0 from 6.5. 11/16 CXR showed moderate heart failure with findings suggestive of superimposed pneumonia at the lung bases. Her abdomen also appears more distended today. Patient is having cardiac catheter performed by Dr. Escudero at 11:30 AM today with plans to extubate once the procedure is complete and patient is hemodynamically stable. From a nephrology standpoint, patient will be receiving HD today. 11/17/2024: No overnight events. Patient seen and examined at bedside; she is no longer intubated (extubated yesterday). Patient was awake and attempted to communicate with this television script writer but her voice was very quiet, hoarse, and low so it was difficult to understand her. She seemed to want soap for her hand but this television script writer was unable to tell for certain. Notable labs today include: Hgb 7.9, platelet count 104, APTT drop to 67.8 from 98.4, blood pH bump to 7.48 from 7.41, Na bump to 133 from 127, BUN drop to 30 from 46, creatinine drop to 3.9 from 5.1, eGFR bump to 12 from 8, and phosphorus drop to 5.7 from 8.0. Patient was scheduled for cardiac catheterization yesterday for her ischemic heart disease thought to be causing her recurrent SVT and VT (triggering ICD shocks) but this was canceled by cardiology. From nephrology's standpoint, we will hold off on hemodialysis for today. 11/18/2024: No overnight events. Patient seen and examined at bedside; she has been intubated once again due to agonal breathing and desaturations noted yesterday. Per cardiology, she continues to have recurrent episodes of V-tach and V-fib and the overall prognosis is poor. She also remains unable to provide consent for cardiac catheterization due to her incapacitation and lack of a living relative to provide consent on her behalf. A cardiac catheterization will be attempted if she becomes more stable and her pulmonary edema improves. Notable labs today include: Hgb 6.7, APTT 52.6, Na 130, BUN drop to 34 from 36, creatinine bump to 4.7 from 4.4, and phosphorus 6.2. Repeat CXR today shows [id number] heart failure, bibasilar pneumonia and/or pulmonary edema, and [id number] bilateral pleural effusions. From nephrology's standpoint, patient will be receiving HD w/ pRBC today. 11/19/2024: No overnight events. Patient seen and examined at bedside; they remain intubated today. Notable labs today include: Hemoglobin 10.0, platelet count 123, APTT drop to 29.2 from 52.6, BUN drop to 25 from 34, creatinine drop to 3.6 from 4.7, and phosphorus drop to 5.2 from 6.2. Consent for cardiac catheterization procedure was finally obtained from patient's close friend, and cardiac catheterization was performed by Dr. Escudero yesterday. After the procedure was completed, cardiology determined that there was no intervention they could do that could significantly ameliorate the patient's current critical condition. Cardiology currently recommends pure medical management and pursuit of comfort measures. From nephrology's standpoint, patient will be taking a break from hemodialysis today. 11/20/2024: Pt seen and examined in the ICU, pt is extubated with oxymask in place. Per conversation with Dr. Lopez, there is significant calcification on angiogram, and scarring. Cards recommends medical management. BUN 32 from 25, Cr 4.4 from 3.6. pt is able to answer questions by shaking head and vocalizing. She is still on pressedex, plan to discuss code status with patient once she is alert and awake. No HD today 11/21/2024: No overnight events. Patient seen and examined at bedside; they are not intubated and seem more awake and alert. The idea of removing the ICD that continues to shock her was broached to the patient but met with seeming resistance by the patient (via shaking of the head). Notable labs today include: Hgb 8.5, Na 131, K 4.3, BUN bump to 38 from 32, and creatinine bump to 5.3 from 4.4. Patient is continuing to receive shocks without any available intervention to better her situation and, per ICU note, she has reached maximal medical therapy with no additional interventions available. Patient has agreed to be DNR/DNI and does not want any additional aggressive interventions. From nephrology's standpoint, patient will be receiving hemodialysis today. 11/22/2024: No overnight events. Patient seen and examined at bedside; they are not intubated but it remains difficult to understand patient verbally. Notable labs today include: Hgb 8.4, anion gap 18, BUN drop to 30 from 38, and creatinine drop to 4.4 from 5.3. Patient is continuing to receive shocks without any available intervention to better her situation and, per ICU note, she has reached maximal medical therapy with no additional interventions available. Patient has agreed to be DNR/DNI and does not want any additional aggressive interventions. She wants to return home on hospice. From nephrology's standpoint, patient will not be receiving hemodialysis today as her heart cannot tolerate it and the therapeutic value is minimal at this point. Exam Vital Signs Temp Pulse Resp BP Pulse Ox O2 Del Method O2 Flow Rate 98.2 F 93 32 H 147/72 H 99 Nasal Cannula 3 11/22/24 08:11/22/24 10:00 11/22/24 10:00 11/22/24 10:00 11/22/24 10:00 11/22/24 06:00 11/22/24 06:19 FiO2 28 11/21/24 11:55 Narrative Exam General: Patient is awake and alert but cannot be assessed for orientation due to her voice hoarseness, elderly, frail, no acute distress. Skin: Some skin break down on LUE wrist fistula. Warm, dry. Head: NG tube in place. Normocephalic, atraumatic. Eyes: Icteric. EOMI. Cardiovascular: Episodes of possible ICD shocks can be felt on the right side of the sternum. Regular rate and rhythm, no murmur, no JVD or carotid bruits. +S1/S2. Respiratory: Some trace crackles bilaterally, No accessory muscle use. Gastrointestinal: Soft, nontender, non distended no palpable masses. Extremities: Right hand and forearm appears bruised and swollen with gauze wrapped around it. Smaller area of bruising noted on left hand dorsum. RUE hand edema> LUE edema. warm to touch. 2+ dorsal pedalis, UE in restraints. Neuro: responds to questions. Objective Labs 11/22/24 04:50 11/22/24 04:50 Labs: Laboratory Results - last 24 hr 11/22/24 04:50 WBC 10.6 RBC 2.90 L Hgb 8.4 L Hct 26.6 L MCV 92 MCH 29.0 MCHC 31.6 RDW Std Deviation 59.5 H Plt Count 125 L Neut % (Auto) 84 H Lymph % (Auto) 5 L [place] % (Auto) 9 Eos % (Auto) 0 Baso % (Auto) 0 Neut # (Auto) 8.9 H Lymph # (Auto) 0.5 L [place] # (Auto) 0.9 H Eos # (Auto) 0.0 Baso # (Auto) 0.0 Immature Gran # (Auto) 0.17 H Absolute Nucleated RBC 0.02 H Immature Gran % 2 H Nucleated RBC % 0 Sodium 135 L Potassium 4.2 Chloride 96 L Carbon Dioxide 21.4 Anion Gap 18 H BUN 30 H Creatinine 4.4 H* D Estim Creat Clear Calc 11.8 L eGFR 10 L* BUN/Creatinine Ratio 7 L Glucose 84 Calculated Osmolality 275 Calcium 9.0 Corrected Calcium 9.7 Magnesium 2.3 Total Bilirubin 0.4 AST 41 H ALT 10 Alkaline Phosphatase 130 H D Total Protein 4.8 L Albumin 3.1 L Globulin 1.7 L Albumin/Globulin Ratio 1.8 ABG Interpretation ABG results: 11/11/24 11/11/24 11/12/24 04:01 07:38 04:55 ABG pH 7.14 L* 7.37 D 7.26 L D ABG pCO2 71 H* 42 D 44 ABG pO2 116 H 97 95 ABG HCO3 24 24 20 ABG O2 Saturation 97 99 H 98 ABG Base Excess -6 L -1 -7 L 11/12/24 11/13/24 11/14/24 07:35 04:13 04:35 ABG pH Cancelled 7.42 D 7.46 H ABG pCO2 Cancelled 48 40 ABG pO2 Cancelled 79 L 106 D ABG HCO3 Cancelled 31 H 29 H ABG O2 Saturation Cancelled 97 99 H ABG Base Excess Cancelled 6 H 4 H 11/15/24 11/16/24 11/16/24 04:58 05:20 11:55 ABG pH 7.47 H 7.29 L D 7.41 D ABG pCO2 39 51 H D 39 D ABG pO2 100 234 H D 160 H D ABG HCO3 29 H 24 24 ABG O2 Saturation 99 H 100 H 100 H ABG Base Excess 5 H -2 0 11/17/24 11/17/24 11/18/24 09:09 16:45 05:00 ABG pH 7.48 H 7.36 D 7.40 ABG pCO2 33 47 D 44 ABG pO2 132 H D 154 H D 203 H D ABG HCO3 25 27 H 27 H ABG O2 Saturation 101 H 100 H 101 H ABG Base Excess 1 1 2 11/19/24 11/20/24 04:14 04:42 ABG pH 7.41 7.43 ABG pCO2 43 38 ABG pO2 205 H 62 L D ABG HCO3 27 H 25 ABG O2 Saturation 101 H 94 ABG Base Excess 3 1 Quality Measures Quality Measures none Advance care planning discussed with:: patient Assessment & Plan Assessment Current Active Medications: Generic Name Dose Route Start Last Admin Trade Name Julissa PRN Reason Stop Dose Admin Acetaminophen 650 mg 11/11/24 05:17 Acetaminophen 325 Mg Tablet PO 12/11/24 05:16 Q6H PRN Fever >100.5 Albuterol/Ipratropium 3 ml 11/11/24 07:00 11/22/24 06:18 Albuterol/Ipratropium (Duoneb) Rt Poonam 3 Ml Nebu INH 12/11/24 06:59 3 ml Q4HRRT RAYO Administration Amiodarone HCl 200 mg 11/18/24 09:00 11/22/24 09:11 Amiodarone Hcl 200 Mg Tablet NG 12/18/24 08:59 200 mg BID RAYO Administration Aspirin 81 mg 11/11/24 09:00 11/22/24 09:10 Aspirin 81 Mg Chew NG 12/11/24 08:59 81 mg QDAY RAYO Administration Atorvastatin Calcium 40 mg 11/11/24 21:00 11/21/24 21:07 Atorvastatin Calcium 20 Mg Tablet NG 12/11/24 20:59 40 mg HS RAYO Administration Bisacodyl 10 mg 11/16/24 10:09 11/16/24 10:44 Bisacodyl 10 Mg Supp AL 12/16/24 10:08 10 mg QDAY PRN Administration CONSTIPATION Protocol Dextrose 25 ml 11/12/24 06:24 11/20/24 06:12 Dextrose 50%-Water Inj 50 Ml Syringe IV 12/12/24 06:23 25 ml Q15MIN PRN Administration BG 50-70 responsive npo pt Dextrose 50 ml 11/12/24 06:24 11/18/24 18:50 Dextrose 50%-Water Inj 50 Ml Syringe IV 12/12/24 06:23 50 ml Q15MIN PRN Administration BG <50 OR BG <70 & pt unresponsive Famotidine 20 mg 11/11/24 09:00 11/22/24 09:12 Famotidine Inj 10 Mg/Ml Vial 2 Ml IVP 12/11/24 08:59 20 mg QDAY RAYO Administration Protocol Glucagon 1 mg 11/12/24 06:24 Glucagon Inj 1 Mg Vial IM Q15MIN PRN BG <70, and no IV access Heparin Sodium (Porcine) 5,000 unit 11/19/24 06:00 11/22/24 05:10 Heparin Sod Inj 5000 Unit/Ml Vial SC 12/03/24 05:59 5,000 unit Q8HR RAYO Administration Albumin Human 25 gm in 100 mls @ 100 mls/min 11/14/24 08:47 11/14/24 18:41 Albuminar-25 Ivpb IV Infused PRN PRN Infusion DIALYSIS Propofol 1,000 mg in 100 mls @ 2.13 mls/hr 11/18/24 20:25 11/19/24 10:27 Diprivan Ivpb IV 12/18/24 20:24 0 mcg/kg/min .Q24H PRN 0 mls/hr PER PROTOCOL Titration Protocol 5 MCG/KG/MIN Magnesium Hydroxide 30 ml 11/16/24 10:08 11/16/24 10:46 Milk Of Magnesia Susp 30 Ml Udc PO 12/16/24 10:07 30 ml QDAY PRN Administration CONSTIPATION Protocol Metoprolol Tartrate 25 mg 11/14/24 11:30 11/22/24 09:10 Metoprolol Tartrate 25 Mg Tablet NG 12/14/24 11:29 25 mg BID RAYO Administration Midodrine 10 mg 11/11/24 22:00 11/22/24 05:10 Midodrine 5 Mg Tablet NG 12/11/24 21:59 10 mg TID RAYO Administration Ondansetron HCl 4 mg 11/11/24 05:17 Ondansetron Inj 2 Mg/Ml Inj 2 Ml IVP 12/11/24 05:16 Q6H PRN NAUSEA OR VOMITING Protocol Pharmacy Consult 1 each 11/11/24 05:27 Pharmacy Renal Dose Adjustment 1 Ea XX 12/11/24 05:26 PRN PRN CONSULT Quetiapine Fumarate 50 mg 11/20/24 21:00 11/21/24 21:09 Quetiapine Fumarate 25 Mg Tablet PO 12/20/24 20:59 50 mg HS RAYO Administration Sacubitril/Valsartan 1 tab 11/18/24 11:15 11/22/24 09:11 Sacubitril 24 Mg/Valsartan 26 Mg Tablet PO 12/18/24 11:14 1 tab BID RAYO Administration Sevelamer Carbonate 0.8 gm 11/14/24 08:00 11/22/24 09:18 Sevelamer Carbonate 0.8 Gm Packet (Non-Formulary) NG 12/14/24 07:59 0.8 gm TIDWM RAYO Administration Sodium Chloride 3 ml 11/11/24 04:43 Sodium Chloride Rt Poonam 0.9% 3 Ml Nebu INH 12/11/24 04:42 PRN PRN SOLN Plan Mirella Grewal is a 74-year-old F with a PMH of CHF, coronary artery disease with multiple MIs s/p stents, COPD on 3 L home oxygen, ESRD on hemodialysis, Thursday, Thursday, , Thursday, and A-fib with pacemaker, who was brought in by EMS with a chief complaint of acute SOB. The patient was intubated and admitted to ICU for further management of acute hypoxic hypercapnic respiratory failure secondary to COPD exacerbation. Patient has agreed to be DNR/DNI and does not want any additional aggressive interventions. She wants to return home on hospice. From nephrology's standpoint, patient will not be receiving hemodialysis today as her heart cannot tolerate it and the therapeutic value is minimal at this point. 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, requires vascular surgery follow up Fistula remains patent and thrill is palpable Treatment Plan -Continue to monitor #Acute hypoxic respiratory failure - extubated, on oxymask #CAP #Possible CHF exacerbation, likely 2/2 volume overload in the setting of ESRD #Pleural Effusion Critically elevated BNP 2005 with elevated troponin I 0.046 CXR showed moderate congestive heart failure with prominent vascular congestion and perihilar basilar edema Chest CT showed mild heart failure with moderate enlargement of the cardiac contour with small bilateral pleural effusions 11/13 CXR showed bibasilar pneumonia with significant RLL consolidation 11/13 EKG showed a change from sinus rhythm to atrial fibrillation with intermittent pacemaker rhythm 11/14 troponin downtrended to 3.023 from 4.088 Treatment Plan -Continue management per primary care team #SVT #Recurrent Tachyarrythmia -s/p angiogram, significant calcifications #Hx of A-fib, on Eliquis and s/p pacemaker Treatment Plan -Continue management per cardiology recommendations -Continue management per primary care team #Electrolyte abnormalities #Hypocalcemia, likely 2/2 ESRD status (resolving) #Mild hyponatremia #Hypochloremia Treatment Plan -Continue NG calcium carbonate BID per primary care team -Monitor electrolyte levels, correct as needed -Continue Veltassa to treat possible hyperkalemia -Continue sevelamer to treat possible hyperphosphatemia #Normocytic anemia, likely 2/2 ESRD status #Thrombocytopenia Admission Hgb 11.1 (MCV 96, RDW 63.4) 11/12/24: Hgb dropped to 10.0 -s/p Epoetin 10,000 U x1 11/14/24: Hgb 9.5, platelet count down to 106 from 134 11/16/24: Hgb 9.0 11/17/24: Hgb 7.9 11/20/24: Hgb 9.2 Treatment Plan -Monitor H&H, transfuse if Hgb<7 #Other medical problems #Acute encephalopathy likely 2/2 CO2 narcolepsy in the setting of COPD exacerbation #Acute hypoxic hypercapnic respiratory failure likely 2/2 CHF exacerbation vs. COPD exacerbation vs. both #COPD exacerbation #Community-acquired pneumonia #Leukocytosis- downtrending #CAD s/p stents Treatment Plan -Continue management per primary care team Plan discussed with nephrology attending Dr. Danica Pineda, DO Internal Medicine, PGY-1 Attending Provider Attestation/Addendum Patient seen and examined with resident physician Dr. Pineda. Note reviewed, agree with findings and recommendations. Patient currently seen in ICU Patient with arrhythmias and ICD shocks. Dr. Luo did angiogram and noted significant calcification in all the blood vessels including heavy calcification in the mitral valve and the left ventricle completely calcified. Unfortunately cannot fix the problem. Despite daily dialysis patient goes into fluid overload due to heart problems. Critical care spent more than 35minutes regarding plan of care and disease management. Patient extubated yesterday. She made herself DNR, DNI. Did talk to the patient regarding holding off on the defibrillator and patient wants to continue with the present care. Did not want the defibrillator to be turned off. Patient apparently not tolerating dialysis well and despite daily dialysis she still remains in fluid overload. Spoke to the patient regarding discontinuing dialysis. She seems to be in agreement with comfort care/hospice. Will reevaluate tomorrow. However dialysis is not going to change her overall prognosis due to her heart problems. Hospice/comfort care seems to be appropriate. plan of care discussed with ICU team Spoke to Dr. Merritt.
[2024-11-22 11:22] LABS: Lactate (Lactic Acid) 1.0 mMol/L (0.4-2.0)
--- NOTE | 2024-11-22 11:59 | ESPR_ITS ---
Documentation for date of: 11/22/24 Subjective Subjective Interval history: This is a 74-year-old female admitted to the hospital on 11 November for acute hypoxic hypercapnic respiratory failure. She was found to have a COPD exacerbation. She had gradually improved and on the was placed on pressure support. She lasted for approximately 20 minutes before developing SVT requiring adenosine, metoprolol and diltiazem. She also developed flash pulmonary edema. She was sedated and placed back on AC/VC. On the sedation vacation was again attempted with spontaneous breathing trial. When she is awake she is very anxious and when she becomes anxious she develops SVT. This time she also developed VT and her ICD fired. She was again sedated and placed on AC/VC as well as an amiodarone drip. Discussion was held with cardiology regarding her recurrent arrhythmias. It was felt that she does have ischemic heart disease which is responsible for these dysrhythmias. The plan was for cardiac cath. Originally the patient was supposed to go for cath on the however this was canceled by cardiology. Therefore the patient was once again placed on spontaneous breathing trial which she did pass. She was extubated to BiPAP. She was still very anxious requiring Precedex drip as well as as needed Haldol. This morning she is more sedated and seems somewhat confused. There are no acute overnight events. Yesterday in the afternoon she had repeat episodes of VT terminated by her ICD. She is anuric from her end-stage renal disease. 11/19-yesterday the patient was taken to the [facility] Inspector which did not reveal any lesions that were amenable to intervention. No acute overnight events. Today the patient sedation is being weaned down. 11/20-no acute overnight events, no repeat episodes of SVT or VT over last 24 hours. Patient was placed on spontaneous mode over the course of the evening and she has tolerated well. She is on minimal dose of Precedex today. She is not on any other sedation. She has had multiple bowel movements after lactulose for her constipation. She is afebrile. She is anuric from her end-stage renal disease. 11/21-overnight patient once more had episodes of SVT and VT which were on again off again for about 30 minutes. I am told that she had no pain during these episodes. This morning she is awake pleasant, tired 8/19- no acute overnight events, patient is awake this morning and does not endorse any pain. She has had episodes of SVT and VT but does not appear to be in any discomfort. Discussed with social work yesterday for transfer with hospice. I did discuss with the patient CODE STATUS and hospice and she stated that she had been on hospice before. She wants to remain DNR/DNI with no aggressive interventions and she wants to return home on hospice. I discussed with social work the patient's desire to return home however this appears to not be possible and she will need intermediate placement as there is no one to care for her at home. Critical Care Note Critical care time (min.): 0 Exam Vital Signs Temp Pulse Resp BP Pulse Ox O2 Del Method O2 Flow Rate 98.2 F 88 20 147/72 H 97 Nasal Cannula 5 11/22/24 08:00 11/22/24 11:44 11/22/24 11:44 11/22/24 10:00 11/22/24 11:44 11/22/24 06:00 11/22/24 11:44 FiO2 28 11/21/24 11:55 Narrative Exam General-elderly, frail, ill-appearing, awake, interactive HEENT-normocephalic, atraumatic, sclera icteric, oral mucosa is dry, NG tube in place Chest-crackles heard at bases, coarse, wet breath sounds, heart rate regular and rhythmic, breathing does not appear labored Abdomen-soft, nontender, bowel sounds present, no rebound or guarding Extremities-pulses palpable, significant edema, no clubbing, no mottling, generalized weakness Physical Exam Completion Physical Exam Complete?: Yes Objective - Transfer And [employer] Operator Chief Labs 11/22/24 04:50 11/22/24 04:50 Labs: Laboratory Results - last 24 hr 11/22/24 11/22/24 04:50 10:53 WBC 10.6 RBC 2.90 L Hgb 8.4 L Hct 26.6 L MCV 92 MCH 29.0 MCHC 31.6 RDW Std Deviation 59.5 H Plt Count 125 L Neut % (Auto) 84 H Lymph % (Auto) 5 L [place] % (Auto) 9 Eos % (Auto) 0 Baso % (Auto) 0 Neut # (Auto) 8.9 H Lymph # (Auto) 0.5 L [place] # (Auto) 0.9 H Eos # (Auto) 0.0 Baso # (Auto) 0.0 Immature Gran # (Auto) 0.17 H Absolute Nucleated RBC 0.02 H Immature Gran % 2 H Nucleated RBC % 0 Sodium 135 L Potassium 4.2 Chloride 96 L Carbon Dioxide 21.4 Anion Gap 18 H BUN 30 H Creatinine 4.4 H* D Estim Creat Clear Calc 11.8 L eGFR 10 L* BUN/Creatinine Ratio 7 L Glucose 84 Calculated Osmolality 275 Lactic Acid 1.0 Calcium 9.0 Corrected Calcium 9.7 Magnesium 2.3 Total Bilirubin 0.4 AST 41 H ALT 10 Alkaline Phosphatase 130 H D Total Protein 4.8 L Albumin 3.1 L Globulin 1.7 L Albumin/Globulin Ratio 1.8 Assessment & Plan Additional Assessment Additional Assessment: In summary this is 74-year-old female with acute respiratory failure and ischemic heart disease a/p EMR ANALYST [employer]-improved - On Seroquel 50 nightly - Has not required any Haldol, Precedex for additional interventions CV SVT/VT- on beta-juan luis and Amio however continues to have episodes on a daily basis - ICD terminates VT - Underwent cath without any ischemic lesion that could be intervened on -Heavy scarring and calcifications noted in the left ventricle -Patient's ongoing arrhythmia felt to be secondary to scarring without any definitive lesion to intervene on -There are no further interventions available for the patient's current condition -she does not want to have her ICD turned off h/o Afib- eliquis can be resumed Ischemic cardiomyopathy- echo shows EF 30% with global hypokinesia and post wall akinesia - mod to severe MS - last echo in September 2023 showed EF of 45% - Cath did not show any lesion amenable to intervention - on BB - On entresto Tropinemia-secondary to demand ischemia Resp Acute Resp failure-resolved COPDE- improved Pulmonary edema-despite repeat [id number] dialysis sessions throughout her hospital stay continues to have recurrence pulmonary edema -She is unable to tolerate aggressive volume removal, she is unable to fully tolerate dialysis ? CAP-completed treatment course Renal HypoNa- mild, monitor ESRD on HD- followed by nephrology - Unable to tolerate aggressive dialysis Hyperphos- on sevelamer GI NPo till passes swallow Endo stable Heme Anemia-transfused on the 2 units of PRBCs - stable with no ongoing bleeding Thrombocytopenia- no indication for transfusion - Stable ID PNA- on 7days abx-> has been completed + Bcx- bcx from 11/11 was staph capitis, all repeat bcx NTD -> likely contaminant case d/w ICU team and nephrology Patient has reached maximal medical therapy with no additional interventions available Patient is DNR/DNI Have discussed the possibility of getting her home with hospice and currently pending social work evaluation She will be going to intermediate with hospice as there is nobody to take care of her at home labs, imaging, records reviewed ~36min required for eval, exam, review, intervention, dicussion and formulation of POC for this critically ill patient at high risk for further and ongoing decompensation Provider Notation Provider Notation: Although this document has been carefully reviewed, there may still be some phonetic and other typographical errors. These errors are purely grammatical due to imperfections in the software program and should not be construed in any way to compromise the substance of the patient's medical care during this visit. Thank you for the opportunity and privilege in assisting you with this patient's care and management.
--- NOTE | 2024-11-22 12:34 | PD.RESPRO ---
Documentation for date of: 11/22/24 Subjective Subjective Interval history: The patient is a 74-year-old female with significant past medical history of CHF, coronary artery disease with multiple MIs s/p stents, COPD on 3 L home oxygen, ESRD on hemodialysis, Thursday, Thursday, , Thursday, A-fib with pacemaker, brought in by EMS with chief complaint of acute SOB. The patient called EMS due to SOB, and she was saturating on 80s at her home. She was given DuoNeb on the way to hospital, and when she presented to ED, her saturation was 84 on high flow CPAP. She was already altered, and was intubated. Further history were unobtainable, as patient was already intubated during my evaluation. In the ED her vitals were significant for a blood pressure of 200/76, pulse 79, RR 20, labs are significant for white count 13.5, RBC 3.88, hemoglobin 11.1, D-dimer 2630, ABG revealed pH of 7.14, pCO2 71, pO2 116, bicarb 24, sodium 135, potassium 4.6, BUN 39, creatinine 6.4, lactic acid 4.1, corrected calcium 7.7, magnesium 2.2, AST/ALT/ALP less than 10, less than 10/05/2027 respectively. Ammonia was 17, troponin 0.046, CRP less than 0.5, BNP 2006, lipid panel revealed LDL 116, lipase 68, TSH 6.61, free T4 0.84. 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 The patient received methylprednisone 125 Mg IV x 1, bolus fluid 1 L at the rate 250 cc/h, cefixime 2 g IV x 1, and started on vancomycin. The patient was intubated and admitted to ICU for further management of acute hypoxic hypercapnic respiratory failure secondary to COPD exacerbation. 11/11/2024: Patient is sedated and on mechanical ventilator. Most of the history is taken from the chart review and from the nurse at the bedside. Patient supposedly lives alone and developed shortness of breath, for which she called the EMS. By the time EMS went her home she was severely short of breath for which she was given DuoNebs and was kept on CPAP following which she was brought to the hospital where she was given steroids, sedated and intubated. Later central line was placed. No acute overnight events. Vitals are stable and patient is on propofol and fentanyl drip without any vasopressor support. Started on methylprednisolone 60 Mg IV once daily, ceftriaxone and azithromycin. Repeat ABG after the intubation is within normal limits. Will continue mechanical ventilation for now and monitor the patient. Later in the evening, patient is found to be mildly hypotensive for which low-dose Levophed was started and patient was given a dose of midodrine 10 Mg through orogastric tube. 11/12/2024: Patient is seen and examined at bedside in the ICU. No acute overnight events. Sedated and on mechanical ventilator, VC/AC mode with tidal volume 380, PEEP 5, FiO2 30% and saturating around 95%. Vitals are stable and patient is mildly hypotensive, started on Levophed which was stopped around 7 AM this morning, maintain blood pressures only on minimal doses of Levophed 0.05 mcg/kg/min. Labs done this morning showed mild leukocytosis, sodium 131, potassium 5.5, BUN 61, creatinine 7.9, bicarb 19.2, phosphorus 7.8. ABG showed metabolic acidosis Patient missed her dialysis session yesterday which was started this morning and Levophed is restarted to support the blood pressure during dialysis. Tolerated dialysis well on 2 L of fluid is taken. Patient was changed from VC/AC mode to pressure support mode. Will repeat ABG tomorrow morning and if patient is hemodynamically stable, able to respond after weaning of the sedation, planning to wean her off the mechanical ventilator. 11/13/2024: Patient seen this morning, at a RASS of 0 able to follow commands well, interactive and trying to communicate. Initially plan was to extubate today. Later that morning around 9:40 am patient appeared anxious and went into SVT rate up to 180s with hypoxia in the 70s while on pressure support. Patient was switched back to AC/VC on 100% FiO2. Patient was given metoprolol tartrate 5 mg IV x1, adenosine 6 mg IV x1, furosemide 40 mg IV x1, diltiazem 10 mg IV x1, and midazolam 1 mg IV x1, after which patient had resolution of heart rate and rhythm. Patient was then placed on Precedex drip. Will keep patient sedated overnight and try for extubation tomorrow. Started Veltassa for hyperkalemia, follow up potassium levels. Patient will have dialysis tomorrow. Troponin was repeated in the afternoon which was elevated at 4.088 therefore Plavix loading dose was given 300 mg x1 followed by 75 mg qday and heparin drip was started after discussed with Dr. Escudero. 11/14/2024: Patient is seen and examined at bedside in the ICU. Initial plan was to extubate patient this morning but after decreasing the sedation, patient became more interactive and is trying to communicate with the hand gestures and trying to speak. Patient was kept on pressure support mode and she was tolerating it well. Later suddenly noted multiple episodes of SVT and VT. Patient was given 300 mg bolus of amiodarone and was started on amiodarone drip. Later no further episodes of arrhythmias were noted during the day. Patient was kept back on the VC/AC mode. Consulted electrical systems design engineer, Dr. Escudero who is following the patient, recommended that he will do cardiac cath on 11/16/2024. So we will plan to extubate patient once the cardiac cath is done as patient is going into arrhythmias whenever trying to wean her off the sedation and extubate. Patient is taking metoprolol 25 mg twice daily at home. Echocardiogram done on 11/13/2024 showed EF of 30%. So resumed metoprolol to tartrate 25 mg twice daily. Will continue telemetry monitoring 11/15/2024: Patient is seen and examined at bedside in the ICU. No acute overnight events. No further episodes of SVT and VT noted. Patient continued to be on the amiodarone drip and heparin drip. Pending cardiac cath tomorrow around 11:[address] Escudero. Noted to have mild respiratory alkalosis for which respiratory rate is decreased from 20-18. Labs done this morning showed thrombocytopenia, 97,000. As patient is on heparin drip and also noted to have downtrending platelet count since the start of heparin drip, will do workup for heparin-induced thrombocytopenia. Will keep patient on n.p.o. since midnight. Transition to oral amiodarone 200 mg twice daily based on Dr. Escudero's recommendations. Will stop heparin drip around 1 hour before the cardiac catheterization. Talked to her friend who is the point of contact who gave consent for the cardiac catheterization and also patient when she is awake she wrote down on the patient that she wants to undergo cardiac catheterization. Planning to extubate once cardiac catheterization is done if the patient is hemodynamically stable.Will continue to monitor platelet count and discontinue heparin drip of the platelet counts downtre 11/16/2024: Patient is seen and examined at bedside in the ICU. No acute overnight events. Patient is noted to be agitated overnight for which she was kept on high doses of fentanyl and Precedex. Otherwise patient is doing good and ABG done this morning showed mild respiratory acidosis. Patient was supposed to get cardiac cath today but the procedure is postponed for now. As patient is hemodynamically stable and is on minimal requirement of FiO2, planned to extubate. Patient was started on pressure support and titrated to wean her off sedation. Patient tolerated pressure support well and passed spontaneous breathing trial following which patient was extubated on 11/16/2024 around 10:20 AM. Patient is extubated to BiPAP. Later patient was noted to have multiple episodes of short lasting SVT and VT for which a dose of metoprolol 5 mg and Haldol, Seroquel is given as patient appears to be delirious and continuously got agitated saying that someone is trying to kill her. Patient was restarted on Precedex. Around 3 PM patient was started on the dialysis during which she needed vasopressor support for shock. ABG done after extubation is within normal limits. Patient was weaned off the BiPAP and kept on the oxy mask. Patient continued to develop SVT and bradycardia episodes for which patient was given amiodarone 150 mg bolus and started on drip. Natural Gas Plant Technician, Dr. Escudero is following the patient and recommended to continue drip. ICD interrogation was done and showed multiple episodes of VT for which shock was delivered. Found to have Acinetobacter Iwofii on sputum culture for which patient was started on Unasyn 11/17/2024: Patient is seen and examined at bedside in the ICU. Overnight, patient was noted to have episodes of SVT and VT for which patient was given a dose of metoprolol 5 mg and in the view of agitation, patient also received 1 dose of olanzapine. At the time of examination in the morning, patient is able to answer some questions but still delirious and confused. Vitals are stable and patient is on OxyMask. Labs done this morning showed hemoglobin 7.9, platelets 104, sodium 133, potassium 3.6, BUN 30, creatinine 3.9. Patient was given a dose of 20 mill equivalents of IV potassium in view of continuous arrhythmias. Around 1:30 PM, patient was noted to have altered sensorium with difficulty breathing for which patient was kept on BiPAP despite which the saturations are low around 80s for which patient was intubated and kept on mechanical ventilator. A dose of labetalol 10 mg is given at the time in view of high blood pressures and suspected pulmonary edema. Will continue amiodarone, heparin drip. Repeat CBC, CMP, lactate and procalcitonin, ABG is ordered. 11/18/2024: Patient is seen and examined at the bedside in the ICU. Overnight, patient found to be agitated and was started on fentanyl drip. Vitals are stable and noted to have no episodes of SVT/VT. Vitals are stable. On physical examination, patient noted to have oozing from right upper extremity. Noted no bowel movements since the time of admission despite edema, milk of mag and senna. Labs done this morning showed hemoglobin of 6.7, likely acute blood loss from the right thigh hematoma. Patient got her regular HD today with 2 units of PRBC transfusion with 3 L of fluid removal. Natural Gas Plant Technician, Dr. 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 Patient found to have episodes of VT in the cardiac Chemical Processing Laborer for which patient was given 2 shocks following which converted to normal sinus rhythm. Heparin drip was stopped and patient was transferred back to the ICU. No further episodes of VT was noted. Planning to start lidocaine drip the patient continues to have recurrent persistent VT. Goals of care discussion are done with the point of contact, siria and explain her but patient's current condition and her prognosis. The the point of contact, Siria is willing to keep her on comfort measures as her medical conditions are addressed and noted to have poor prognosis but she is concerned about the lability issues. will have a goals of care discussions again tomorrow with social welfare administrator. 11/19/2024: Patient is seen and examined at bedside in the ICU. Overnight, patient was found to have an SVT episode for which a dose of metoprolol 2.5 mg is given and no other significant events. Vitals are stable and patient is on low-dose Levophed and sedation. Vitals are stable. On physical examination, patient appears to respond to verbal commands and able to follow commands, patient is trying to communicate. On physical examination, noted to have abdominal distention and patient had no bowel movement since the time of admission. Labs done this morning showed hemoglobin 10, platelets 123, BUN 25, creatinine 3.6, phosphorus 5.2, albumin 3. Patient was started on 45 g of lactulose every fourth hourly following which patient had 2 large bowel movements. As patient is able to follow commands, started on pressure support and patient is tolerating well. If patient is hemodynamically stable and passes SBT, plan to extubate tomorrow after having goals of care discussion. Hemodialysis is held for today. 11/20/2024: Patient was extubated successfully today to OxyMask, saturated well on 6L and calm, able to respond to questions. Patient decided to change code status to DNR/DNI, expressed to multiple providers including Dr. Mishra, Dr. Merritt, and myself. Code status changed in chart. Patient expressed I want to go home. Today patient had multiple further episodes of SVT/VT, during SVT vagal maneuvers were unsuccessful therefore was given pushes of metoprolol tartrate 5 mg IV. She was given a total of 4 throughout the day. Also given diltiazem 10 mg IV x1. She continues on amiodarone 200 mg BID and metoprolol tartrate 25 mg BID through the NG tube. During a few seconds of VT, tele strip does seen to indicate that the patient was shocked once. Plan is to manage the episodes symptomatically, and provide pushes of antipsychotics or pain medication as needed if patient is anxious or uncomfortable. 11/21/2024: Patient is seen and examined at bedside in the ICU. Overnight, patient was noted to have SVT/VT for over 20 to 30 minutes for which patient was given a dose of metoprolol 5 mg following which it resolved after few minutes. Vitals are stable and patient is on oxygen, 3 L/min. Able to respond to some questions appropriately but still appears to be confused. Able to answer her name, date of , place. Still noted to have multiple episodes of SVT and VT but patient does not have any complaints and noted to have blood pressures within normal limits. Labs done this morning showed hemoglobin 8.5, platelets 121, BUN 38, creatinine 5.3, sodium 131. Received hemodialysis for about 2 hours 47 minutes but later discontinued as patient continued to get multiple episodes of arrhythmias and found to have drop in blood pressure for which patient was on Levophed for a short period of time and later weaned off. Will continue current management. library services dean referral was done. Talked to the point of contact, Evelyn and he wants to proceed with the hospice at the [facility] facility as patient does not have any family members to support at home. Looking for nursing facility placement. Patient likely to have poor prognosis in the setting of CHF, ESRD, recurrent arrhythmias due to aneurysm and her poor mental status. 11/23/2023: Patient is seen and examined at bedside in the ICU. No acute overnight events except SVT and VT episodes which she is having since 4 to 5 days. Noted to have bowel movements but no urinary output. This morning patient is noted to have episodes of SVT and VT but patient is asymptomatic and is lying down comfortably with no drop in blood pressure or saturations. Vitals are stable and patient is off vasopressors saturating around 92 to 94% with 3 L of oxygen which is her baseline. Patient is able to respond appropriately and able to make a conversation. Labs done this morning showed hemoglobin 8.4, sodium 135, anion gap 18, BUN 30, creatinine 4.4, AST 41. Mobile Equipment Mechanic, Dr. Mishra is following the patient. Placed on hospice after having goals of care discussion with patient and her decision maker, Jose. Pending insurance authorization. Allowed patient to have coffee with oral sponge and tolerated well. Patient reported that she wants to continue HD for the comfort measures after going to [facility] facility with hospice. As patient does not require any further ICU care, will downgrade to floors for further management. Will continue current treatment. Exam Vital Signs Temp Pulse Resp BP Pulse Ox O2 Del Method O2 Flow Rate 98.2 F 88 20 147/72 H 97 Nasal Cannula 5 11/22/24 08:00 11/22/24 11:44 11/22/24 11:44 11/22/24 10:00 11/22/24 11:44 11/22/24 06:00 11/22/24 11:44 FiO2 28 11/21/24 11:55 Narrative Exam General: Awake, resting comfortably HEENT: Normocephalic, atraumatic, mucous membranes dry. Heart: regular rate and rhythm, no murmurs. Lungs: B/L diffuse inspiratory crackles and transmitted sounds heard Abdomen: Soft, nondistended, nontender, positive bowel sounds. ?No guarding or rebound tenderness. Neurologic: No gross neurological deficits noted. Extremities: No edema in lower extremities. Left AV fistula noted. 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 Right upper extremity swelling and dressing is noted. Skin: No rash. ecchymotic patches noted on right arm and at the site of IV catheters Objective Labs 11/22/24 04:50 11/22/24 04:50 Labs: Laboratory Results - last 24 hr 11/22/24 11/22/24 04:50 10:53 WBC 10.6 RBC 2.90 L Hgb 8.4 L Hct 26.6 L MCV 92 MCH 29.0 MCHC 31.6 RDW Std Deviation 59.5 H Plt Count 125 L Neut % (Auto) 84 H Lymph % (Auto) 5 L Frontier % (Auto) 9 Eos % (Auto) 0 Baso % (Auto) 0 Neut # (Auto) 8.9 H Lymph # (Auto) 0.5 L Frontier # (Auto) 0.9 H Eos # (Auto) 0.0 Baso # (Auto) 0.0 Immature Gran # (Auto) 0.17 H Absolute Nucleated RBC 0.02 H Immature Gran % 2 H Nucleated RBC % 0 Sodium 135 L Potassium 4.2 Chloride 96 L Carbon Dioxide 21.4 Anion Gap 18 H BUN 30 H Creatinine 4.4 H* D Estim Creat Clear Calc 11.8 L eGFR 10 L* BUN/Creatinine Ratio 7 L Glucose 84 Calculated Osmolality 275 Lactic Acid 1.0 Calcium 9.0 Corrected Calcium 9.7 Magnesium 2.3 Total Bilirubin 0.4 AST 41 H ALT 10 Alkaline Phosphatase 130 H D Total Protein 4.8 L Albumin 3.1 L Globulin 1.7 L Albumin/Globulin Ratio 1.8 ABG Interpretation ABG results: 11/11/24 11/11/24 11/12/24 04:01 07:38 04:55 ABG pH 7.14 L* 7.37 D 7.26 L D ABG pCO2 71 H* 42 D 44 ABG pO2 116 H 97 95 ABG HCO3 24 24 20 ABG O2 Saturation 97 99 H 98 ABG Base Excess -6 L -1 -7 L 11/12/24 11/13/24 11/14/24 07:35 04:13 04:35 ABG pH Cancelled 7.42 D 7.46 H ABG pCO2 Cancelled 48 40 ABG pO2 Cancelled 79 L 106 D ABG HCO3 Cancelled 31 H 29 H ABG O2 Saturation Cancelled 97 99 H ABG Base Excess Cancelled 6 H 4 H 11/15/24 11/16/24 11/16/24 04:58 05:20 11:55 ABG pH 7.47 H 7.29 L D 7.41 D ABG pCO2 39 51 H D 39 D ABG pO2 100 234 H D 160 H D ABG HCO3 29 H 24 24 ABG O2 Saturation 99 H 100 H 100 H ABG Base Excess 5 H -2 0 11/17/24 11/17/24 11/18/24 09:09 16:45 05:00 ABG pH 7.48 H 7.36 D 7.40 ABG pCO2 33 47 D 44 ABG pO2 132 H D 154 H D 203 H D ABG HCO3 25 27 H 27 H ABG O2 Saturation 101 H 100 H 101 H ABG Base Excess 1 1 2 11/19/24 11/20/24 04:14 04:42 ABG pH 7.41 7.43 ABG pCO2 43 38 ABG pO2 205 H 62 L D ABG HCO3 27 H 25 ABG O2 Saturation 101 H 94 ABG Base Excess 3 1 Quality Measures Quality Measures none Advance care planning discussed with:: patient and other Assessment & Plan Assessment Current Active Medications: Generic Name Dose Route Start Last Admin Trade Name Freq PRN Reason Stop Dose Admin Acetaminophen 650 mg 11/11/24 05:17 Acetaminophen 325 Mg Tablet PO 12/11/24 05:16 Q6H PRN Fever >100.5 Albuterol/Ipratropium 3 ml 11/11/24 07:00 11/22/24 11:44 Albuterol/Ipratropium (Duoneb) Rt Poonam 3 Ml Nebu INH 12/11/24 06:59 3 ml Q4HRRT RAYO Administration Amiodarone HCl 200 mg 11/18/24 09:00 11/22/24 09:11 Amiodarone Hcl 200 Mg Tablet NG 12/18/24 08:59 200 mg BID RAYO Administration Aspirin 81 mg 11/11/24 09:00 11/22/24 09:10 Aspirin 81 Mg Chew NG 12/11/24 08:59 81 mg QDAY RAYO Administration Atorvastatin Calcium 40 mg 11/11/24 21:00 11/21/24 21:07 Atorvastatin Calcium 20 Mg Tablet NG 12/11/24 20:59 40 mg HS RAYO Administration Bisacodyl 10 mg 11/16/24 10:09 11/16/24 10:44 Bisacodyl 10 Mg Supp ND 12/16/24 10:08 10 mg QDAY PRN Administration CONSTIPATION Protocol Dextrose 25 ml 11/12/24 06:24 11/20/24 06:12 Dextrose 50%-Water Inj 50 Ml Syringe IV 12/12/24 06:23 25 ml Q15MIN PRN Administration BG 50-70 responsive npo pt Dextrose 50 ml 11/12/24 06:24 11/18/24 18:50 Dextrose 50%-Water Inj 50 Ml Syringe IV 12/12/24 06:23 50 ml Q15MIN PRN Administration BG <50 OR BG <70 & pt unresponsive Famotidine 20 mg 11/11/24 09:00 11/22/24 09:12 Famotidine Inj 10 Mg/Ml Vial 2 Ml IVP 12/11/24 08:59 20 mg QDAY RAYO Administration Protocol Glucagon 1 mg 11/12/24 06:24 Glucagon Inj 1 Mg Vial IM Q15MIN PRN BG <70, and no IV access Heparin Sodium (Porcine) 5,000 unit 11/19/24 06:00 11/22/24 05:10 Heparin Sod Inj 5000 Unit/Ml Vial SC 12/03/24 05:59 5,000 unit Q8HR RAYO Administration Albumin Human 25 gm in 100 mls @ 100 mls/min 11/14/24 08:47 11/14/24 18:41 Albuminar-25 Ivpb IV Infused PRN PRN Infusion DIALYSIS Propofol 1,000 mg in 100 mls @ 2.13 mls/hr 11/18/24 20:25 11/19/24 10:27 Diprivan Ivpb IV 12/18/24 20:24 0 mcg/kg/min .Q24H PRN 0 mls/hr PER PROTOCOL Titration Protocol 5 MCG/KG/MIN Magnesium Hydroxide 30 ml 11/16/24 10:08 11/16/24 10:46 Milk Of Magnesia Susp 30 Ml Udc PO 12/16/24 10:07 30 ml QDAY PRN Administration CONSTIPATION Protocol Metoprolol Tartrate 25 mg 11/14/24 11:30 11/22/24 09:10 Metoprolol Tartrate 25 Mg Tablet NG 12/14/24 11:29 25 mg BID RAYO Administration Midodrine 10 mg 11/11/24 22:00 11/22/24 05:10 Midodrine 5 Mg Tablet NG 12/11/24 21:59 10 mg TID RAYO Administration Ondansetron HCl 4 mg 11/11/24 05:17 Ondansetron Inj 2 Mg/Ml Inj 2 Ml IVP 12/11/24 05:16 Q6H PRN NAUSEA OR VOMITING Protocol Pharmacy Consult 1 each 11/11/24 05:27 Pharmacy Renal Dose Adjustment 1 Ea XX 12/11/24 05:26 PRN PRN CONSULT Quetiapine Fumarate 50 mg 11/20/24 21:00 11/21/24 21:09 Quetiapine Fumarate 25 Mg Tablet PO 12/20/24 20:59 50 mg HS RAYO Administration Sacubitril/Valsartan 1 tab 11/18/24 11:15 11/22/24 09:11 Sacubitril 24 Mg/Valsartan 26 Mg Tablet PO 12/18/24 11:14 1 tab BID RAYO Administration Sevelamer Carbonate 0.8 gm 11/14/24 08:00 11/22/24 09:18 Sevelamer Carbonate 0.8 Gm Packet (Non-Formulary) NG 12/14/24 07:59 0.8 gm TIDWM RAYO Administration Sodium Chloride 3 ml 11/11/24 04:43 Sodium Chloride Rt Poonam 0.9% 3 Ml Nebu INH 12/11/24 04:42 PRN PRN SOLN Plan The patient is a 74-year-old female with significant past medical history of CHF, coronary artery disease with multiple MIs s/p stents, COPD on 3 L home oxygen, ESRD on hemodialysis, Thursday, Thursday, , Thursday, A-fib with pacemaker, brought in by EMS with chief complaint of acute SOB. The patient was intubated and admitted to ICU for further management of acute hypoxic hypercapnic respiratory failure secondary to COPD exacerbation. Neuro: #Acute encephalopathy - resolved - Patient was noted to have encephalopathy due to CO2 narcosis at the time of admission, later CO2 narcosis resolved with mechanical ventilation - Patient was extubated as of 11/16/2024, but still appears to be altered and delirious, thinking that someone is trying to kill her, Likely due to hospital induced delirium - On 11/17/2024, around 1:30 PM, patient developed acute respiratory failure with worsening of the mental status for which patient was reintubated again and kept on mechanical ventilator - 11/20/2024 patient was extubated and weaned off Precedex, doing well and calm Plan - Frequent reorientation, natural light, encourage movement, avoid delirium - Started on Seroquel 50 mg at bedtime CVS: # CAD s/p multiple stents # S/p ICD # HFrEF, EF 30% in 05/08 ischemic cardiomyopathy - Though patient presented with acute SOB, was found to have BNP 1999, no JVD or peripheral edema noted - EKG showed paced rhythm with ST elevation in 1, aVL and reciprocal depressions in 2, 3 and aVF suggestive of old SC - ECHO on 11/16/2024 - Findings are consistent with ischemic cardiomyopathy severe LV dysfunction heavy mitral annulus calcification calcification mitral apparatus with moderate to severe mitral stenosis and mild mitral regurgitation. No evidence of significant pulmonary hypertension. - Talked to electrical systems design engineer, Dr. Escudero about the EKG findings and he recommended that ST elevations are from old SC and scarring - Patient had history of NSTEMI in September, but rejected cardiac catheterization at that time, patient might be having ongoing ischemia due to which patient is having multiple episodes of SVT/VT - Planned to do cardiac catheterization on 11/16/2024 but not done at that time. 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 with severe mitral valve calcification Plan - Low-sodium diet - Fluid restriction to 1500 cc daily - Continue on GDMT - Metoprolol 25 mg twice daily and Entresto 24/26 mg twice daily #Episode of SVT/VT 11/13/2024 Patient was given adenosine 6 mg IV x1, metoprolol 5 mg IV x1, diltiazem 10 mg IV x1 with conversion On 11/15/2023, when trying to wean patient off the sedation and kept on pressure support mode, patient became more agitated and developed multiple episodes of SVT and VT Patient has received amiodarone drip loading bag course x3 Plan - Continuous telemetry - Continue amiodarone 200 mg BID - Continue metoprolol tartarate 25mg twice daily through OG tube - Patient is using amiodarone 200 mg twice daily at home, as patient developed recurrent episodes of SVT/VT, started on amiodarone drip on 11/14/2024, and transition to oral amiodarone but as of 11/16/2024, patient was noted to have multiple episodes of SVT, VT which was also confirmed by ICD interrogation and patient noted to receive shock. As the patient is continuously developing episodes of SVT/VT, patient was given amiodarone bolus followed by drip. # History of atrial fibrillation Patient never had documented episodes of atrial fibrillation but on pacemaker tracing, noted to have atrial fibrillation for which patient was started on amiodarone and Eliquis - Patient is using Eliquis at home - Currently on amiodarone 200mg twice daily through OG tube. - Will hold eliquis at this point of time # NSTEMI, likely type II Troponin is mildly elevated at the time of admission, 0.046 uptrended to 4.000, later downtrended Though EKG showed changes of ST elevation, they are likely from the old SC - Will continue telemetry monitoring - Loading dose Plavix given 300 mg x1 - Started on Plavix 75 mg qday, discontinued as patient does not have ongoing CAD - Will continue Aspirin 81mg once daily - Following with Cardiology, Dr. Escudero Pulmonology: #Acute hypoxic hypercapnic respiratory failure, resolved #COPD exacerbation, resolved #Pulmonary edema Likely in the setting of worsening disease or superimposed bacterial infection and pulmonary edema in the setting of ESRD, Ongoing ischemic heart disease -Patient is a initially intubated on 11/11/2024 in view of acute hypoxic hypercapnic respiratory failure secondary to COPD exacerbation and pulmonary edema in the setting of CAD and ESRD - Patient is extubated on 11/16/2024 and is stable till 11/17/2024. Around 1:30 PM on 11/17/2024, patient developed sudden acute respiratory failure likely secondary due to pulmonary edema, ongoing CAD and patient was reintubated at that time Diagnostic test: - Tested negative for influenza A, B and COVID-19 - ABG at the time of admission showed pH 7.14, pCO2 71, PaO2 116, bicarb 24, oxygen saturation 97. - Chest x-ray showed cardiomegaly, infiltrates more on the right basilar area. - Labs showed WBC 13.5 - Tested negative for influenza A and B, COVID-19 - Blood cultures came back negative and 80 secretions came back positive for Acinetobacter Iwofii Treatment: - Patient is sedated, intubated and mechanically ventilated on 11/10/2024 - Received methylprednisolone 125 Mg IV x 1 in the ED - Started on methylprednisolone 60 Mg IV daily, completed 5 days on 11/14/2024 - Nebulizations every fourth of every, DuoNebs - Tried to wean the patient off ventilator on 11/13, 11/14 but noted to go to SVT and VT on both days. - Patient was extubated on 11/16/2024 and started on BiPAP and oxygen as needed and got reintubated on - Started on Unasyn as patient ET secretions culture tested positive for Acinetobacter Iwofii, stopped as of 11/18/2024 as patient completed 7 days course of antibiotics and no suspicion of active ongoing pneumonia - Started on OxyMask, 3 L oxygen which is her baseline. GI: - No active problems Renal: #ESRD on HD -Patient is having 4 dialysis sessions per week At the time of admission, pH of 7.14, pCO2 71, lactic acid 4.1 Plan - Mobile Equipment Mechanic Dr. Mishra consulted, appreciate recommendations - Received HD session on 11/12/2024, 11/14/2024, 11/16/2024, 11/18/2024, 11/20/2024, 11/21/2024 - Will need HD as per her routine schedule - Will avoid nephrotoxic medications and renally dose medications - Needing vasopressor during the dialysis Hematology: #Leukocytosis, resolved Reactive versus steroid versus infective Secondary to pneumonia and COPD exacerbation - Continue to treat underlying cause #Normocytic normochromic anemia DDx: Inflammatory anemia due to chronic kidney disease, versus nutritional deficiency versus malabsorption - Workup as an outpatient basis - Later patient found to be having low hemoglobin, 6.7 likely due to blood loss from Right thigh hematoma from the procedure - Transfused 2PRBC as of 11/18/2024 during HD # Thrombocytopenia, resolving - At the time of admission is 177 - Patient is started on heparin drip on 11/13/2024 in view of suspected ongoing acute ischemic heart disease. - Since then, noted to have downtrend in platelet count - Platelet count as of 11/15/2024 is 97,000 and on 11/16/2024 is within normal limits -->11/17, [id number] ---> 11/18, 94,000 --> 11/21, [id number] - Suspected HIT in the setting of heparin and thrombocytopenia, - HIT panel is sent, came back negative Plan - Will continue to monitor platelet count. ID: #Suspected community-acquired pneumonia - Initially patient was started on ceftriaxone and doxycycline, received ceftriaxone for 8 days and later Unasyn was started as patient sputum cultures came back positive for Acinetobacter Iwofii - ET secretions culture showed Acinetobacter for which Unasyn was started and stopped on 11/18/2024 Health maintenance: Dispo: ICU for further management of acute hypoxic hypercapnic respiratory failure secondary to COPD exacerbation, Pulmonary edema Diet: on OG tube feeds Lines: Left IJ central line, peripheral lines DVT prophylaxis: Heparin CODE STATUS: Full code Patient plan of care was discussed with the thread singer, Dr. Merritt. Elmer Husain, PGY2
--- NOTE | 2024-11-22 14:08 | ESPR_ITS ---
<Statement entered by Holden Cameron MD - 11/22/24 20:25> Patient was seen and examined at bedside. Agree on most of the assessment and plan in this note. - Patient's plan and care discussed with my attending, Dr. Bharat Cameron MD Internal Medicine PGY-3 Documentation for date of: 11/22/24 Subjective Subjective Interval history: She was intubated in ED admitted to the ICU, and started on a ventilator and central line given as well as steroids and broad spectrum IV abx. Eventually she was extubated to BiPAP and f/t/h SVT and VTs metoprolol, haldol, and seroquel. ICD interrogation was done and showed multiple episodes of VT for which shock was delivered. Found to have Acinetobacter Iwofii on sputum culture for which patient was started on Unasyn. Cards was consulted cath found 80% occlusion of LMCA with severe mitral valve calcification and inferior wall aneurysm, multiple shocks were administered. extensive vascular and myocardial disease with elevated LVEDP (18 mmHg) LV angio revealed extensive inferoapical and apical akinesis with aneurysmal dilation, angio was done (EF:30%). Goals of care was done with point of care. Cards Recommend given critical L main dz, severe LV disfunction, diffuse calcifications of aorta and peripheral vasculature patient is not a candidate for PCI, impella-assisted intervention, or CABG; revascularization not feasible, recommend medical management only and arrangements for hospice appropriately. On 11/20 patient was extubated. Nephro consulted and ascertained that no therapeutic benefit will come from continued treatment due to heart not being able to tolerate HDS. Point of care agrees to hospice, placement pending insurance authorization. Patient downgraded from ICU today. Ongoing SVTs, HR: 160s to 90s. Morphine administered in ICU for chest pain. Patient able to communicate, indicates her wishes clearly. Confirms ongoing chest pain. Mainly states that she dislikes being in the hosptial bed. Exam Vital Signs Temp Pulse Resp BP Pulse Ox O2 Del Method O2 Flow Rate 98.2 F 88 20 147/72 H 97 Nasal Cannula 5 11/22/24 08:00 11/22/24 11:44 11/22/24 11:44 11/22/24 10:00 11/22/24 11:44 11/22/24 06:00 11/22/24 11:44 FiO2 28 11/21/24 11:55 Narrative Exam General: Awake, resting comfortably HEENT: Normocephalic, atraumatic, mucous membranes dry. Heart: regular rate and rhythm, no murmurs. Lungs: B/L diffuse inspiratory crackles and transmitted sounds heard. Overall difficult to auscultate Abdomen: Soft, nondistended, nontender, positive bowel sounds. ?No guarding or rebound tenderness. Neurologic: No gross neurological deficits noted. Extremities: No edema in lower extremities. large left AV fistula noted. 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 Right upper extremity swelling and dressing is noted. Skin: No rash. ecchymotic patches noted on right arm and at the site of IV catheters Objective Labs 11/23/24 05:20 11/23/24 05:20 Labs: Laboratory Results - last 24 hr 11/22/24 11/22/24 04:50 10:53 WBC 10.6 RBC 2.90 L Hgb 8.4 L Hct 26.6 L MCV 92 MCH 29.0 MCHC 31.6 RDW Std Deviation 59.5 H Plt Count 125 L Neut % (Auto) 84 H Lymph % (Auto) 5 L Drew % (Auto) 9 Eos % (Auto) 0 Baso % (Auto) 0 Neut # (Auto) 8.9 H Lymph # (Auto) 0.5 L Drew # (Auto) 0.9 H Eos # (Auto) 0.0 Baso # (Auto) 0.0 Immature Gran # (Auto) 0.17 H Absolute Nucleated RBC 0.02 H Immature Gran % 2 H Nucleated RBC % 0 Sodium 135 L Potassium 4.2 Chloride 96 L Carbon Dioxide 21.4 Anion Gap 18 H BUN 30 H Creatinine 4.4 H* D Estim Creat Clear Calc 11.8 L eGFR 10 L* BUN/Creatinine Ratio 7 L Glucose 84 Calculated Osmolality 275 Lactic Acid 1.0 Calcium 9.0 Corrected Calcium 9.7 Magnesium 2.3 Total Bilirubin 0.4 AST 41 H ALT 10 Alkaline Phosphatase 130 H D Total Protein 4.8 L Albumin 3.1 L Globulin 1.7 L Albumin/Globulin Ratio 1.8 ABG Interpretation ABG results: 11/11/24 11/11/24 11/12/24 04:01 07:38 04:55 ABG pH 7.14 L* 7.37 D 7.26 L D ABG pCO2 71 H* 42 D 44 ABG pO2 116 H 97 95 ABG HCO3 24 24 20 ABG O2 Saturation 97 99 H 98 ABG Base Excess -6 L -1 -7 L 11/12/24 11/13/24 11/14/24 07:35 04:13 04:35 ABG pH Cancelled 7.42 D 7.46 H ABG pCO2 Cancelled 48 40 ABG pO2 Cancelled 79 L 106 D ABG HCO3 Cancelled 31 H 29 H ABG O2 Saturation Cancelled 97 99 H ABG Base Excess Cancelled 6 H 4 H 11/15/24 11/16/24 11/16/24 04:58 05:20 11:55 ABG pH 7.47 H 7.29 L D 7.41 D ABG pCO2 39 51 H D 39 D ABG pO2 100 234 H D 160 H D ABG HCO3 29 H 24 24 ABG O2 Saturation 99 H 100 H 100 H ABG Base Excess 5 H -2 0 11/17/24 11/17/24 11/18/24 09:09 16:45 05:00 ABG pH 7.48 H 7.36 D 7.40 ABG pCO2 33 47 D 44 ABG pO2 132 H D 154 H D 203 H D ABG HCO3 25 27 H 27 H ABG O2 Saturation 101 H 100 H 101 H ABG Base Excess 1 1 2 11/19/24 11/20/24 04:14 04:42 ABG pH 7.41 7.43 ABG pCO2 43 38 ABG pO2 205 H 62 L D ABG HCO3 27 H 25 ABG O2 Saturation 101 H 94 ABG Base Excess 3 1 Quality Measures Quality Measures none Advance care planning discussed with:: other Assessment & Plan Assessment Current Active Medications: Generic Name Dose Route Start Last Admin Trade Name Freq PRN Reason Stop Dose Admin Acetaminophen 650 mg 11/11/24 05:17 Acetaminophen 325 Mg Tablet PO 12/11/24 05:16 Q6H PRN Fever >100.5 Albuterol/Ipratropium 3 ml 11/11/24 07:00 11/22/24 11:44 Albuterol/Ipratropium (Duoneb) Rt Poonam 3 Ml Nebu INH 12/11/24 06:59 3 ml Q4HRRT RAYO Administration Amiodarone HCl 200 mg 11/18/24 09:00 11/22/24 09:11 Amiodarone Hcl 200 Mg Tablet NG 12/18/24 08:59 200 mg BID RAYO Administration Aspirin 81 mg 11/11/24 09:00 11/22/24 09:10 Aspirin 81 Mg Chew NG 12/11/24 08:59 81 mg QDAY RAYO Administration Atorvastatin Calcium 40 mg 11/11/24 21:00 11/21/24 21:07 Atorvastatin Calcium 20 Mg Tablet NG 12/11/24 20:59 40 mg HS RAYO Administration Bisacodyl 10 mg 11/16/24 10:09 11/16/24 10:44 Bisacodyl 10 Mg Supp AZ 12/16/24 10:08 10 mg QDAY PRN Administration CONSTIPATION Protocol Dextrose 25 ml 11/12/24 06:24 11/20/24 06:12 Dextrose 50%-Water Inj 50 Ml Syringe IV 12/12/24 06:23 25 ml Q15MIN PRN Administration BG 50-70 responsive npo pt Dextrose 50 ml 11/12/24 06:24 11/18/24 18:50 Dextrose 50%-Water Inj 50 Ml Syringe IV 12/12/24 06:23 50 ml Q15MIN PRN Administration BG <50 OR BG <70 & pt unresponsive Famotidine 20 mg 11/11/24 09:00 11/22/24 09:12 Famotidine Inj 10 Mg/Ml Vial 2 Ml IVP 12/11/24 08:59 20 mg QDAY RAYO Administration Protocol Glucagon 1 mg 11/12/24 06:24 Glucagon Inj 1 Mg Vial IM Q15MIN PRN BG <70, and no IV access Heparin Sodium (Porcine) 5,000 unit 11/19/24 06:00 11/22/24 05:10 Heparin Sod Inj 5000 Unit/Ml Vial SC 12/03/24 05:59 5,000 unit Q8HR RAYO Administration Albumin Human 25 gm in 100 mls @ 100 mls/min 11/14/24 08:47 11/14/24 18:41 Albuminar-25 Ivpb IV Infused PRN PRN Infusion DIALYSIS Propofol 1,000 mg in 100 mls @ 2.13 mls/hr 11/18/24 20:25 11/19/24 10:27 Diprivan Ivpb IV 12/18/24 20:24 0 mcg/kg/min .Q24H PRN 0 mls/hr PER PROTOCOL Titration Protocol 5 MCG/KG/MIN Magnesium Hydroxide 30 ml 11/16/24 10:08 11/16/24 10:46 Milk Of Magnesia Susp 30 Ml Udc PO 12/16/24 10:07 30 ml QDAY PRN Administration CONSTIPATION Protocol Metoprolol Tartrate 25 mg 11/14/24 11:30 11/22/24 09:10 Metoprolol Tartrate 25 Mg Tablet NG 12/14/24 11:29 25 mg BID RAYO Administration Midodrine 10 mg 11/11/24 22:00 11/22/24 05:10 Midodrine 5 Mg Tablet NG 12/11/24 21:59 10 mg TID RAYO Administration Ondansetron HCl 4 mg 11/11/24 05:17 Ondansetron Inj 2 Mg/Ml Inj 2 Ml IVP 12/11/24 05:16 Q6H PRN NAUSEA OR VOMITING Protocol Pharmacy Consult 1 each 11/11/24 05:27 Pharmacy Renal Dose Adjustment 1 Ea XX 12/11/24 05:26 PRN PRN CONSULT Quetiapine Fumarate 50 mg 11/20/24 21:00 11/21/24 21:09 Quetiapine Fumarate 25 Mg Tablet PO 12/20/24 20:59 50 mg HS RAYO Administration Sacubitril/Valsartan 1 tab 11/18/24 11:15 11/22/24 09:11 Sacubitril 24 Mg/Valsartan 26 Mg Tablet PO 12/18/24 11:14 1 tab BID RAYO Administration Sevelamer Carbonate 0.8 gm 11/14/24 08:00 11/22/24 13:43 Sevelamer Carbonate 0.8 Gm Packet (Non-Formulary) NG 12/14/24 07:59 0.8 gm TIDWM RAYO Administration Sodium Chloride 3 ml 11/11/24 04:43 Sodium Chloride Rt Poonam 0.9% 3 Ml Nebu INH 12/11/24 04:42 PRN PRN SOLN Plan The patient is a 74-year-old female with significant past medical history of CHF, coronary artery disease with multiple MIs s/p stents, COPD on 3 L home oxygen, ESRD on hemodialysis, Thursday, Thursday, , Thursday, A-fib with pacemaker, brought in by EMS with chief complaint of acute SOB. The patient was intubated and admitted to ICU for further management of acute hypoxic hypercapnic respiratory failure secondary to COPD exacerbation. Was intubated twice, had ICD interrogated, multiple shocks to patient during cardiac angio. Patient is downgraded to [facility] for medical management, pending hospice facility placement. Cardiology and nephrology agree no therapeutic benefit to treatment. Continue pain management and breathing treatments as well as PRN seroquel for anxiety. # CAD s/p multiple stents # HFrEF, EF 30% in 2024 2/2 ischemic cardiomyopathy, S/p ICD #Episode of SVT/VT with multiple shocks through the ICD #History of atrial fibrillation #NSTEMI, likely type II Though patient presented with acute SOB, was found to have BNP 2000, no JVD or peripheral edema noted. EKG showed paced rhythm with ST elevation in 1, aVL and reciprocal depressions in 2, 3 and aVF suggestive of old SD. ECHO on 11/16/2024. Findings are consistent with ischemic cardiomyopathy severe LV dysfunction heavy mitral annulus calcification calcification mitral apparatus with moderate to severe mitral stenosis and mild mitral regurgitation. 11/13/2024 Patient was given adenosine 6 mg IV x1, metoprolol 5 mg IV x1, diltiazem 10 mg IV x1 with conversion On 11/15/2023, when trying to wean patient off the sedation and kept on pressure support mode, patient became more agitated and developed multiple episodes of SVT and VT. 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 Cardiology deemed treatment without therapeutic benefit recommended hospice respectfully. Patient has ongoing chest pain and left arm pain treated with Morphine prn Plan - Low-sodium diet - Fluid restriction to 1500 cc daily - Continue on GDMT - Metoprolol 25 mg twice daily and Entresto 24/26 mg twice daily - DCd - telemetry - Cont Amiodarone - Cont metop - Morphine PRN for chest pain - Hold eliquis #Acute encephalopathy - resolved Patient was noted to have encephalopathy due to CO2 narcosis at the time of admission, later CO2 narcosis resolved with mechanical ventilation. She was extubated as of 11/16/2024, but still appears to be altered and delirious, thinking that someone is trying to kill her, Likely due to hospital induced delirium. On 11/17/2024, around 1:30 PM, patient developed acute respiratory failure with worsening of the mental status for which patient was reintubated again and kept on mechanical ventilator. 11/20/2024 patient was extubated and weaned off Precedex, doing well and calm Plan - Frequent reorientation, natural light, encourage movement, avoid delirium - Started on Seroquel 50 mg at bedtime --> 25 mg PRN for agitation #Failure to thrive #Starvation ketosis Patient after extubation failed speech eval, at this time patient was put on fluid restriction and tube feed hold as the patient suspected to have developed aspiration pneumonia. At this time patient noticed to have anion gap metabolic acidosis beta-hydroxybutyrate was elevated 4.8. Lactic acid was within normal limit. Plan ? Repeat speech eval ? Start the patient tube feed at 30 mL/h of Jevity, and start water flushes every 4 hours ? Registered dietitian consultation ? Multivitamin injection x 1 followed by p.o. multivitamins ? Thiamine injection IV x 100 mg. #Acute hypoxic hypercapnic respiratory failure, Improving #Suspected community-acquired pneumonia- Resolved #COPD exacerbation, resolved #Pulmonary edema #Fluid overload 2/2 ESRD vs HF Likely in the setting of worsening disease or superimposed bacterial infection and pulmonary edema in the setting of ESRD, getting 4 sessions of dialysis at baseline 2/2 her accelrated fluid over load Ongoing ischemic heart disease. Patient is a initially intubated on 11/11/2024 in view of acute hypoxic hypercapnic respiratory failure secondary to COPD exacerbation and pulmonary edema in the setting of CAD and ESRD. Patient is extubated on 11/16/2024 and is stable till 11/17/2024. Around 1:30 PM on 11/17/2024, patient developed sudden acute respiratory failure likely secondary due to pulmonary edema, ongoing CAD and patient was reintubated at that time Initially patient was started on ceftriaxone and doxycycline, received ceftriaxone for 8 days and later Unasyn was started as patient sputum cultures came back positive for Acinetobacter Iwofii. ET secretions culture showed Acinetobacter for which Unasyn was started and stopped on 11/18/2024 Diagnostic test: - Tested negative for influenza A, B and COVID-19 - ABG at the time of admission showed pH 7.14, pCO2 71, PaO2 116, bicarb 24, oxygen saturation 97. - Chest x-ray showed cardiomegaly, infiltrates more on the right basilar area. - Labs showed WBC 13.5 - Tested negative for influenza A and B, COVID-19 - Blood cultures came back negative and 80 secretions came back positive for Acinetobacter Iwofii Treatment: - Patient is sedated, intubated and mechanically ventilated on 11/10/2024 - Received methylprednisolone 125 Mg IV x 1 in the ED - Started on methylprednisolone 60 Mg IV daily, completed 5 days on 11/14/2024 - Nebulizations every fourth of every, Levalbuterol/ipratropium - Chest physical therapy - Tried to wean the patient off ventilator on 11/13, 11/14 but noted to go to SVT and VT on both days. - Patient was extubated on 11/16/2024 and started on BiPAP and oxygen as needed and got reintubated on - Started on Unasyn as patient ET secretions culture tested positive for Acinetobacter Iwofii, stopped as of 11/18/2024 as patient completed 7 days course of antibiotics and no suspicion of active ongoing pneumonia - Started on OxyMask, 3 L oxygen which is her baseline. #ESRD on HD -Patient is having 4 dialysis sessions per week At the time of admission, pH of 7.14, pCO2 71, lactic acid 4.1 Plan - Hoist Mechanic Dr. Mishra consulted, appreciate recommendations - Received HD session on 11/12/2024, 11/14/2024, 11/16/2024, 11/18/2024, 11/20/2024, 11/21/2024 - Will need HD as per her routine schedule - Will avoid nephrotoxic medications and renally dose medications #Leukocytosis, resolved Reactive versus steroid versus infective Secondary to pneumonia and COPD exacerbation - Continue to treat underlying cause #Normocytic normochromic anemia DDx: Inflammatory anemia due to chronic kidney disease, versus nutritional deficiency versus malabsorption Workup as an outpatient basis. Later patient found to be having low hemoglobin, 6.7 likely due to blood loss from Right thigh hematoma from the procedure - Transfused 2PRBC as of 11/18/2024 during HD # Thrombocytopenia, resolving At the time of admission is 177. Patient is started on heparin drip on 11/13/2024 in view of suspected ongoing acute ischemic heart disease. Since then, noted to have downtrend in platelet count. Platelet count as of 11/15/2024 is 97,000 and on 11/16/2024 is within normal limits -->11/17, [id number] ---> 11/18, 94,000 --> 11/21, [id number]. Suspected HIT in the setting of heparin and thrombocytopenia, - HIT panel is sent, came back negative Plan - Will continue to monitor platelet count. Health maintenance: Dispo: ICU for further management of acute hypoxic hypercapnic respiratory failure secondary to COPD exacerbation, Pulmonary edema --> downgraded to tele Diet: on OG tube feeds Lines: Left IJ central line, peripheral lines DVT prophylaxis: Heparin CODE STATUS: Full code Patient plan of care was discussed with Dr. Nicholson. Ollie Dixon PGY-1 Attending Provider Attestation/Addendum I have discussed and was present for the essential components of the history, physical examination, diagnosis, and treatment plan with the resident. I agree with the patient's care as documented by the resident and amended herein by me. Rachid Nicholson, DO. Although this document has been carefully reviewed, there may still be some phonetic and other typographical errors. These errors are purely grammatical due to imperfections in the software program and should not be construed in any way to compromise the substance of the patient's medical care during this visit. Patient downgraded from ICU, stable, apparently the patient's decision makers have decided hospice care for this patient which is pending. Apparently the patient is on board has agreed however wishes to pursue hemodialysis. We will touch base with nephrology, wean the patient from her NG tube pending speech evaluation and hopefully discharge to SNF with hospice care in the next 1 to 2 days.
[2024-11-22] MEDS: MORPHINE SULF INJ 10 MG/ML VIAL 4 MG IVP (14:29)
[2024-11-22 15:48] LABS: Beta Hydroxybutyrate 3.6 mmol/L (<0.6)
[2024-11-22] MEDS: DEXTROSE 50%-WATER INJ 50 ML SYRINGE 25 ML IV (16:07)
--- NOTE | 2024-11-22 17:49 | PC.SS ---
MANAGER ETL, bedside nurse and ICU resident, Dr. Espinal; met with patient and patient?s surrogate medical decision maker Jose Bose to confirm discharge plan.? ICU resident discussed with patient?s surrogate medical decision maker basis of hospice recommendation.? ICU resident explained to both the patient and surrogate medical decision maker that patient?s cardiac issues are severe and medical intervention cannot reverse patient?s cardiac condition.? Surrogate medical decision maker acknowledged recommendation for hospice services.? ICU resident reviewed with the patient responsibility of surrogate medical decision maker.? Responsibility includes availability when medical team needs to contact surrogate medical decision maker and to make decisions in accordance with the patient's expressed wishes.? Surrogate medical decision maker, Jose Bose; verbally acknowledged responsibilities.? Surrogate medical decision maker informed team that best way to contact is via text, .? It was reviewed that hospice would not entail any life sustaining treatment.? Hospice diagnosis is CHF.? Patient expressed desire to continue with dialysis.? Dialysis will be form of comfort.? MANAGER ETL informed both surrogate medical decision maker and patient that desire to continue with dialysis might be barrier to SNF placement.? MANAGER ETL confirmed with patient and patient?s surrogate medical decision maker plan is to transition the patient to SNF with hospice.?
[2024-11-22] MEDS: IPRATROPIUM RT 0.5 MG/ 2.5 ML NEBU INH ×2 (18:35→22:04)
[2024-11-22] MEDS: LEVALBUTEROL RT 1.25 MG/0.5 ML NEBU INH ×2 (18:35→22:04)
[2024-11-22] MEDS: MULTIVITAMINS TABLET 1 TAB PO (19:00)
[2024-11-22] MEDS: THIAMINE 100 MG TABLET PO (19:00)
[2024-11-22] MEDS: FOLIC ACID INJ 1 MG/0.2 ML IVP (19:00)
[2024-11-22] MEDS: IRON SUCROSE CPLX INJ 20 MG/ML VIAL 5 ML 100 MG IVP (19:00)
--- NOTE | 2024-11-22 19:56 | PC.NURSE ---
spoke with Dr. Espinal, and Dr August who are aware of patients heart rate going in and out of svt. patient is dnr/dni and will transition to hospice tomorrow. They said call only if patient is uncomfortable. No need to call for heart rate as it is expected.
[2024-11-22] MEDS: ATORVASTATIN CALCIUM 20 MG TABLET 40 MG NG (21:41)
--- NOTE | 2024-11-22 22:44 | ESPR_ITS ---
<Statement entered by Jessenia Escudero MD - 11/24/24 22:38> I personally evaluated and examined the patient with the resident physician Dr.FADEL TOVAR PGY2 and agree with the treatment plan recommendation patient's ischemic cardiomyopathy extensive scarring of the right coronary artery distribution RCA is patent with extensive scarring and calcification of scar base VT VF did not have any shocks but patient condition remains critical prognosis poor continues to be on amiodarone definitely improved the arrhythmias she has slow VT whenever she has VT episodes she is tolerating reasonably well. Agree with the treatment plan recommendation as documented by PGY 2 will continue to monitor patient while on telemetry Documentation for date of: 11/22/24 Subjective Subjective Interval history: No acute overnight events. Continued off sedation, on OxyMask, pain is managed with MORPHINE. Denies new or worsening symptoms. [employer] team planning on downgrading telemetry floor with the plan to discharge with hospice. Exam Vital Signs Temp Pulse Resp BP Pulse Ox O2 Del Method O2 Flow Rate 97.7 F 124 H 25 H 142/74 H 96 Oxy Mask 3 11/22/24 20:01 11/22/24 22:04 11/22/24 22:04 11/22/24 21:41 11/22/24 22:04 11/22/24 20:01 11/22/24 22:04 FiO2 28 11/21/24 11:55 Narrative Exam General: Awake, resting comfortably HEENT: Normocephalic, atraumatic, mucous membranes dry. Heart: regular rate and rhythm, no murmurs. Lungs: B/L diffuse inspiratory crackles and transmitted sounds heard Abdomen: Soft, nondistended, nontender, positive bowel sounds. ?No guarding or rebound tenderness. Neurologic: No gross neurological deficits noted. Extremities: No edema. Left AV fistula noted. 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 Right upper extremity swelling and oozing noted from that site Skin: No rash. ecchymotic patches noted on right arm and at the site of IV catheters Objective Labs 11/22/24 04:50 11/22/24 04:50 Labs: Laboratory Results - last 24 hr 11/22/24 11/22/24 11/22/24 04:50 10:53 15:23 WBC 10.6 RBC 2.90 L Hgb 8.4 L Hct 26.6 L MCV 92 MCH 29.0 MCHC 31.6 RDW Std Deviation 59.5 H Plt Count 125 L Neut % (Auto) 84 H Lymph % (Auto) 5 L [place] % (Auto) 9 Eos % (Auto) 0 Baso % (Auto) 0 Neut # (Auto) 8.9 H Lymph # (Auto) 0.5 L [place] # (Auto) 0.9 H Eos # (Auto) 0.0 Baso # (Auto) 0.0 Immature Gran # (Auto) 0.17 H Absolute Nucleated RBC 0.02 H Immature Gran % 2 H Nucleated RBC % 0 Sodium 135 L Potassium 4.2 Chloride 96 L Carbon Dioxide 21.4 Anion Gap 18 H BUN 30 H Creatinine 4.4 H* D Estim Creat Clear Calc 11.8 L eGFR 10 L* BUN/Creatinine Ratio 7 L Glucose 84 Calculated Osmolality 275 Lactic Acid 1.0 Calcium 9.0 Corrected Calcium 9.7 Magnesium 2.3 Total Bilirubin 0.4 AST 41 H ALT 10 Alkaline Phosphatase 130 H D Total Protein 4.8 L Albumin 3.1 L Globulin 1.7 L Albumin/Globulin Ratio 1.8 Beta-Hydroxybutyrate/Acetoacetate 3.6 H ABG Interpretation ABG results: 11/11/24 11/11/24 11/12/24 04:01 07:38 04:55 ABG pH 7.14 L* 7.37 D 7.26 L D ABG pCO2 71 H* 42 D 44 ABG pO2 116 H 97 95 ABG HCO3 24 24 20 ABG O2 Saturation 97 99 H 98 ABG Base Excess -6 L -1 -7 L 11/12/24 11/13/24 11/14/24 07:35 04:13 04:35 ABG pH Cancelled 7.42 D 7.46 H ABG pCO2 Cancelled 48 40 ABG pO2 Cancelled 79 L 106 D ABG HCO3 Cancelled 31 H 29 H ABG O2 Saturation Cancelled 97 99 H ABG Base Excess Cancelled 6 H 4 H 11/15/24 11/16/24 11/16/24 04:58 05:20 11:55 ABG pH 7.47 H 7.29 L D 7.41 D ABG pCO2 39 51 H D 39 D ABG pO2 100 234 H D 160 H D ABG HCO3 29 H 24 24 ABG O2 Saturation 99 H 100 H 100 H ABG Base Excess 5 H -2 0 11/17/24 11/17/24 11/18/24 09:09 16:45 05:00 ABG pH 7.48 H 7.36 D 7.40 ABG pCO2 33 47 D 44 ABG pO2 132 H D 154 H D 203 H D ABG HCO3 25 27 H 27 H ABG O2 Saturation 101 H 100 H 101 H ABG Base Excess 1 1 2 11/19/24 11/20/24 04:14 04:42 ABG pH 7.41 7.43 ABG pCO2 43 38 ABG pO2 205 H 62 L D ABG HCO3 27 H 25 ABG O2 Saturation 101 H 94 ABG Base Excess 3 1 Quality Measures Quality Measures none Advance care planning discussed with:: patient Assessment & Plan Assessment Current Active Medications: Generic Name Dose Route Start Last Admin Trade Name Freq PRN Reason Stop Dose Admin Acetaminophen 650 mg 11/11/24 05:17 Acetaminophen 325 Mg Tablet PO 12/11/24 05:16 Q6H PRN Fever >100.5 Amiodarone HCl 200 mg 11/18/24 09:00 11/22/24 21:39 Amiodarone Hcl 200 Mg Tablet NG 12/18/24 08:59 200 mg BID RAYO Administration Aspirin 81 mg 11/11/24 09:00 11/22/24 09:10 Aspirin 81 Mg Chew NG 12/11/24 08:59 81 mg QDAY RAYO Administration Atorvastatin Calcium 40 mg 11/11/24 21:00 11/22/24 21:41 Atorvastatin Calcium 20 Mg Tablet NG 12/11/24 20:59 40 mg HS RAYO Administration Bisacodyl 10 mg 11/16/24 10:09 11/16/24 10:44 Bisacodyl 10 Mg Supp [place] 12/16/24 10:08 10 mg QDAY PRN Administration CONSTIPATION Protocol Dextrose 25 ml 11/12/24 06:24 11/22/24 16:07 Dextrose 50%-Water Inj 50 Ml Syringe IV 12/12/24 06:23 25 ml Q15MIN PRN Administration BG 50-70 responsive npo pt Dextrose 50 ml 11/12/24 06:24 11/18/24 18:50 Dextrose 50%-Water Inj 50 Ml Syringe IV 12/12/24 06:23 50 ml Q15MIN PRN Administration BG <50 OR BG <70 & pt unresponsive Famotidine 20 mg 11/11/24 09:00 11/22/24 09:12 Famotidine Inj 10 Mg/Ml Vial 2 Ml IVP 12/11/24 08:59 20 mg QDAY RAYO Administration Protocol Glucagon 1 mg 11/12/24 06:24 Glucagon Inj 1 Mg Vial IM Q15MIN PRN BG <70, and no IV access Heparin Sodium (Porcine) 5,000 unit 11/19/24 06:00 11/22/24 21:38 Heparin Sod Inj 5000 Unit/Ml Vial SC 12/03/24 05:59 5,000 unit Q8HR RAYO Administration Albumin Human 25 gm in 100 mls @ 100 mls/min 11/14/24 08:47 11/14/24 18:41 Albuminar-25 Ivpb IV Infused PRN PRN Infusion DIALYSIS Ipratropium [place] 0.5 mg 11/22/24 19:00 11/22/24 22:04 Ipratropium Rt 0.5 Mg/ 2.5 Ml Nebu INH 12/22/24 18:59 0.5 mg Q4HRRT RAYO Administration Levalbuterol HCl 1.25 mg 11/22/24 19:00 11/22/24 22:04 Levalbuterol Rt 1.25 Mg/0.5 Ml Nebu INH 12/22/24 18:59 1.25 mg Q4HRRT RAYO Administration Magnesium Hydroxide 30 ml 11/16/24 10:08 11/16/24 10:46 Milk Of Magnesia Susp 30 Ml Udc PO 12/16/24 10:07 30 ml QDAY PRN Administration CONSTIPATION Protocol Metoprolol Tartrate 25 mg 11/14/24 11:30 11/22/24 21:40 Metoprolol Tartrate 25 Mg Tablet NG 12/14/24 11:29 25 mg BID RAYO Administration Midodrine 10 mg 11/11/24 22:00 11/22/24 21:41 Midodrine 5 Mg Tablet NG 12/11/24 21:59 Not Given TID RAYO Morphine Sulfate 4 mg 11/22/24 14:20 Morphine Sulf Inj 10 Mg/Ml Vial IVP 11/27/24 14:19 Q6HR PRN pain 7-10 Multivitamins 1 tab 11/22/24 16:00 11/22/24 19:00 Multivitamins Tablet PO 12/22/24 15:59 1 tab QDAY RAYO Administration Ondansetron HCl 4 mg 11/11/24 05:17 Ondansetron Inj 2 Mg/Ml Inj 2 Ml IVP 12/11/24 05:16 Q6H PRN NAUSEA OR VOMITING Protocol Pharmacy Consult 1 each 11/11/24 05:27 Pharmacy Renal Dose Adjustment 1 Ea XX 12/11/24 05:26 PRN PRN CONSULT Quetiapine Fumarate 25 mg 11/22/24 18:22 11/22/24 21:59 Quetiapine Fumarate 25 Mg Tablet NG 12/22/24 18:21 25 mg X1 PRN Administration AGITATION Sacubitril/Valsartan 1 tab 11/18/24 11:15 11/22/24 21:40 Sacubitril 24 Mg/Valsartan 26 Mg Tablet PO 12/18/24 11:14 1 tab BID RAYO Administration Sevelamer Carbonate 0.8 gm 11/14/24 08:00 11/22/24 19:00 Sevelamer Carbonate 0.8 Gm Packet (Non-Formulary) NG 12/14/24 07:59 0.8 gm TIDWM RAYO Administration Sodium Chloride 3 ml 11/11/24 04:43 Sodium Chloride Rt [place] 0.9% 3 Ml Nebu INH 12/11/24 04:42 PRN PRN SOLN Sodium Chloride 3 ml 11/22/24 15:09 Sodium Chloride Rt [place] 0.9% 3 Ml Nebu INH 12/22/24 15:08 PRN PRN SOLN Plan The patient is a 74-year-old female with a history of CHF, CAD with multiple MIs and stents, COPD on 3 L home oxygen, ESRD on hemodialysis, and atrial fibrillation with pacemaker, who presented on 11/11/24 via EMS with acute shortness of breath. At home, she was hypoxic with oxygen saturation in the 80s and received DUONEB during transport. In the ED, she was saturating at 84% on high-flow CPAP, hypertensive to 200/76 mmHg, and altered. ABG demonstrated acute hypercapnic and hypoxic respiratory failure (pH 7.14, pCO? 71, pO? 116). CXR showed right lower lobe pneumonia. Labs revealed leukocytosis, elevated BNP (2005), elevated D-dimer, mild troponin rise (0.046), and creatinine consistent with ESRD. She was intubated, given METHYLPREDNISOLONE, fluids, CEFIXIME, and VANCOMYCIN, and admitted to the ICU. 1. Acute hypoxic respiratory failure secondary to chronic obstructive lung disease and acute decompensated congestive heart failure, flash pulmonary edema requiring mechanical ventilation. 2. Acute non-ST segment elevation myocardial infarction with persistent ST segment changes, chronically elevated due to left ventricular inferobasal and posterobasal aneurysm. 3. Coronary artery disease status post multivessel stent placement. 4. End-stage renal disease on hemodialysis. 5. Severe chronic obstructive lung disease. 6. Paroxysmal atrial fibrillation. 7. Vtach 8. Pulmonary edema Cardiac catheterization demonstrated extensive vascular and myocardial disease. Hemodynamics showed elevated LVEDP (18 mmHg) with no gradient across the aortic valve. LV angiogram revealed extensive inferoapical and apical akinesis with aneurysmal dilation, severe calcification, and EF ~30%. Coronary angiography showed a heavily calcified RCA with patent stents supplying nonviable myocardium, and severe 80% ostial left main stenosis with heavy calcification. Additional findings included diffuse calcification of the aorta, mitral annulus, and iliofemoral vessels, with severe stenosis of the left common femoral artery. RECOMMENDATIONS: Given critical left main disease, severe LV dysfunction, and diffuse calcification of the aorta and peripheral vasculature, the patient is not a candidate for PCI, Impella-assisted intervention, or CABG. With end-stage renal disease, recurrent hospitalizations, refractory ventricular arrhythmias, and high procedural risk, further revascularization is not feasible. Recommendation is for medical management only and comfort focused measures. Arrangements have been made for hospice, appropriatly. Case was discussed with attending physician, Dr. Escudero. Richard Tovar DO PGY II This document was transcribed using voice recognition technology. Minor inaccuracies may be present.
[2024-11-23] VITALS (22 sets, daily range): BP systolic 92–155; BP diastolic 54–84; PULSE 83–166; RESP 19–324; TEMP 36.1–36.8; O2SAT 91–100
[2024-11-23] MEDS: LEVALBUTEROL RT 1.25 MG/0.5 ML NEBU INH ×6 (02:06→22:09)
[2024-11-23] MEDS: IPRATROPIUM RT 0.5 MG/ 2.5 ML NEBU INH ×6 (02:06→22:09)
[2024-11-23] MEDS: MIDODRINE 5 MG TABLET 10 MG NG (05:25)
[2024-11-23] MEDS: HEPARIN SOD INJ 5000 UNIT/ML VIAL SC (05:25)
[2024-11-23 06:10] LABS: Basophils # (Auto) 0.1 Thou/mm3 (0.0-0.2); Basophils % (Auto) 0 % (0-2.5); Eosinophils # (Auto) 0.1 Thou/mm3 (0.0-0.5); Eosinophils % (Auto) 0 % (0-10); Hematocrit 26.8 % (36.0-46.0); Hemoglobin 8.6 g/dL (12.0-16.0); Immature Granulocytes Auto 0.25 Thou/mm3 (0.00-0.00); Lymphocytes # (Auto) 0.8 Thou/mm3 (1.0-4.8); Lymphocytes % (Auto) 6 % (10-50); Mean Corpuscular HGB Conc 32.1 g/dl (31.0-37.0); Mean Corpuscular Hemoglobin 29.3 pg (25.0-35.0); Mean Corpuscular Volume 91 fL (80-100); Monocytes # (Auto) 1.1 Thou/mm3 (0.0-0.8); Monocytes % (Auto) 9 % (0-12); Neutrophils # (Auto) 10.6 Thou/mm3 (1.8-7.7); Neutrophils % (Auto) 82 % (37-80); Nucleated Red Blood Cell # 0.03 Thou/mm3 (0.00-0.00); Nucleated Red Blood Cell % 0 /100 WBC (0); Platelet Count 138 Thou/mm3 (140-440); RDW Standard Deviation 57.8 fL (36.4-46.3); Red Blood Count 2.94 Miln/mm3 (4.00-5.20); White Blood Count 12.9 Thou/mm3 (3.6-11.0)
[2024-11-23 06:35] LABS: Alanine Aminotransferase 12 U/L (10-49); Albumin, Serum 3.4 gm/dL (3.4-4.8); Albumin/Globulin Ratio 2.1 (1.2-2.2); Alkaline Phosphatase 130 U/L (46-116); Anion Gap 14 (7-16); Aspartate Amino Transferase 26 U/L (0-34); BUN/Creatinine Ratio 6 Ratio (12-20); Bilirubin,Total 0.4 mg/dL (0.3-1.2); Blood Urea Nitrogen 33 mg/dL (9-23); Calcium 8.9 mg/dL (8.3-10.6); Calcium (Corrected) 9.4 mg/dL (8.5-10.1); Carbon Dioxide 23.7 mMol/L (20.0-31.0); Chloride 95 mMol/L (98-107); Creatinine (Component) 5.4 mg/dL (0.6-1.3); Estimated Creatinine Clearance 9.9 mL/min (>60); Globulin 1.6 gm/dL (2.3-3.5); Glucose 111 mg/dL (74-106); Magnesium 2.7 mg/dL (1.6-2.6); Osmolality,Calculated 274 (275-295); Phosphorous 5.7 mg/dL (2.4-5.1); Potassium 4.4 mMol/L (3.4-5.1); Sodium 133 mMol/L (136-145); Total Protein 5.0 gm/dL (5.7-8.2); eGFR 8 See Note
--- NOTE | 2024-11-23 07:59 | PC.SS ---
Addendum entered and electronically signed by CLARISSA Morales 11/23/24 12:41: SNF update provided to patient's surrogate medical decision maker, Jose Bose; in agreement to expand SNF search. Original Note: [facility] declined patient for placement due not possessing capacity to have patient isolated. Per [facility] due to patietn's positive sputum cultures patient would require isolation. EXPERIMENTAL [employer]OCK[employer] MECH[employer]IC has expanded SNF search on [facility] to include [place], [place] and [place] areas. Responses are pending.
[2024-11-23] MEDS: SEVELAMER CARBONATE 0.8 GM PACKET (NON-FORMULARY) NG ×2 (08:16→11:59)
--- NOTE | 2024-11-23 10:01 | XR_ITS ---
Examination: Duplex scan of the upper extremity, unilateral right Date and time of exam: November 23, 2024 1143 hours INDICATIONS: Right arm nonhealing wound this month Technique: Duplex scan of the extremity veins using B-mode/grayscale imaging and Doppler spectral analysis and color flow Attention is directed to internal echogenicity, compression and augmentation involving these veins, color flow assessment, spectral analysis Findings: Major deep venous structures in the extremity demonstrate normal course and caliber. There is no evidence of deep vein thrombosis. Normal color flow and spectral analysis Impression: Negative for DVT..
[2024-11-23] MEDS: FAMOTIDINE INJ 10 MG/ML VIAL 2 ML 20 MG IVP (10:21)
[2024-11-23] MEDS: MULTIVITAMINS TABLET 1 TAB PO (10:21)
[2024-11-23] MEDS: ASPIRIN 81 MG CHEW NG (10:21)
[2024-11-23] MEDS: AMIODARONE HCL 200 MG TABLET NG (10:22)
--- NOTE | 2024-11-23 10:24 | PD.NEPHPROG ---
Documentation for date of: 11/23/24 Subjective Subjective Interval history: Mirella Grewal is a 74-year-old F with a PMH of CHF, coronary artery disease with multiple MIs s/p stents, COPD on 3 L home oxygen, ESRD on hemodialysis, Thursday, Thursday, , Thursday, and A-fib with pacemaker, who was brought in by EMS with a chief complaint of acute SOB. Per Internal Medicine team note, the patient called EMS due to SOB, and was saturating around 80% at home. She was given DuoNebs on the way to hospital and, when she presented to the ED, was saturating at 84% on high-flow CPAP. At this point, she was already altered, and was intubated. Internal Medicine team could not obtain further history due to patient already being intubated during their evaluation. Of note, patient has multiple prior hospitalizations for similar presentations of acute hypoxic respiratory failure including in November 2023 and September 2023. In the ED, vitals showed: BP 200/76 HR 79 RR 20 Temp 98.6 SpO2 84% on high flow CPAP, ED Course: CBC showed high WBC 13.5, and low Hgb 11.1 (MCV 96, RDW 63.4). Coagulation panel showed critically elevated D-dimer 2630 but was otherwise within normal limits. ABG showed normal pH 7.37, normal pCO2 42, normal PO2 97, and normal HCO3 24. CMP showed high BUN 39, critically elevated creatinine 6.4, critically low EGFR 6, high lactic acid 4.1, high blood glucose 184, low corrected calcium 7.7, critically elevated troponin I 0.046, critically elevated BNP 2006, high TSH 6.61, and low free T4 0.84. UA showed turbid orange urine with a basic pH of 8.0. It also showed 2+ urine protein, 2+ urine blood, high urine RBC 502, high urine WBC 1255, high urine squamous epithelial cells 29, but no urine bacteria. UDS was negative. Rapid RSV was negative. Imaging: Chest x-ray showed moderate congestive heart failure with prominent vascular congestion and perihilar basilar edema. Head CT was unremarkable. Chest CT showed bilateral thyroid nodules, mild heart failure with moderate enlargement of the cardiac contour, bibasilar pneumonia, numerous bilateral positioned metastatic pulmonary nodules, small bilateral pleural effusions, and cholelithiasis. EKG showed old TN. In the ED, patient was received methylprednisone 125 Mg IV x 1, bolus fluid 1 L at the rate 250 cc/h, cefixime 2 g IV x 1, and was started on vancomycin. The patient was intubated and admitted to ICU for further management of acute hypoxic hypercapnic respiratory failure secondary to COPD exacerbation. We, the nephrology team, were consulted for the patient's combined respiratory and metabolic acidosis and need for urgent hemodialysis due to ESRD status. Cardiology is also following. Interval History 11/20/2024: Pt seen and examined in the ICU, pt is extubated with oxymask in place. Per conversation with Dr. Lopez, there is significant calcification on angiogram, and scarring. Cards recommends medical management. BUN 32 from 25, Cr 4.4 from 3.6. pt is able to answer questions by shaking head and vocalizing. She is still on pressedex, plan to discuss code status with patient once she is alert and awake. No HD today 11/21/2024: No overnight events. Patient seen and examined at bedside; they are not intubated and seem more awake and alert. The idea of removing the ICD that continues to shock her was broached to the patient but met with seeming resistance by the patient (via shaking of the head). Notable labs today include: Hgb 8.5, Na 131, K 4.3, BUN bump to 38 from 32, and creatinine bump to 5.3 from 4.4. Patient is continuing to receive shocks without any available intervention to better her situation and, per ICU note, she has reached maximal medical therapy with no additional interventions available. Patient has agreed to be DNR/DNI and does not want any additional aggressive interventions. From nephrology's standpoint, patient will be receiving hemodialysis today. 11/22/2024: No overnight events. Patient seen and examined at bedside; they are not intubated but it remains difficult to understand patient verbally. Notable labs today include: Hgb 8.4, anion gap 18, BUN drop to 30 from 38, and creatinine drop to 4.4 from 5.3. Patient is continuing to receive shocks without any available intervention to better her situation and, per ICU note, she has reached maximal medical therapy with no additional interventions available. Patient has agreed to be DNR/DNI and does not want any additional aggressive interventions. She wants to return home on hospice. From nephrology's standpoint, patient will not be receiving hemodialysis today as her heart cannot tolerate it and the therapeutic value is minimal at this point. 11/23/2024 patient currently seen in telemetry. Significant functional decline and tachycardic. Opens her eyes. Blood pressure on the lower side. Labs and medications reviewed. Heart rate 120. Unable to offer dialysis. Due to extreme fragility patient cannot even come to outpatient dialysis unit. She made herself DNR, DNI and comfort care. At this point I am going to discontinue dialysis and hospice/comfort care seems to be appropriate. Spoke to primary team. Conveyed the same to the patient. She seems to be able to understand. Review of Systems Review of Systems Narrative Review of Systems: Limited due to her mentation. Opens her eyes although goes back into sleep quickly Exam Vital Signs Temp Pulse Resp BP Pulse Ox O2 Del Method O2 Flow Rate 36.7 C 110 H 38 H 135/64 H 93 L Oxy Mask 3 11/23/24 08:00 11/23/24 08:00 11/23/24 08:00 11/23/24 08:00 11/23/24 08:00 11/23/24 08:00 11/23/24 08:00 FiO2 28 11/21/24 11:55 Narrative Exam General: Patient is awake, goes back to sleep quickly. Extremely fragile Skin: Some skin break down on LUE wrist fistula. Warm, dry. Head: NG tube in place. Normocephalic, atraumatic. Eyes: EOMI. Cardiovascular: Episodes of possible ICD shocks can be felt on the right side of the sternum. Regular rate and rhythm, no murmur, no JVD or carotid bruits. +S1/S2. Respiratory: crackles bilaterally, No accessory muscle use. Gastrointestinal: Soft, nontender, non distended no palpable masses. Extremities: Right hand and forearm appears bruised and swollen with gauze wrapped around it. Smaller area of bruising noted on left hand dorsum. RUE hand edema> LUE edema. warm to touch. 2+ dorsal pedalis, UE in restraints. Neuro: Arousable Objective Labs 11/23/24 05:20 11/23/24 05:20 Labs: Laboratory Results - last 24 hr 11/22/24 11/22/24 11/23/24 10:53 15:23 05:20 WBC 12.9 H RBC 2.94 L Hgb 8.6 L Hct 26.8 L MCV 91 MCH 29.3 MCHC 32.1 RDW Std Deviation 57.8 H Plt Count 138 L Neut % (Auto) 82 H Lymph % (Auto) 6 L [place] % (Auto) 9 Eos % (Auto) 0 Baso % (Auto) 0 Neut # (Auto) 10.6 H Lymph # (Auto) 0.8 L [place] # (Auto) 1.1 H Eos # (Auto) 0.1 Baso # (Auto) 0.1 Immature Gran # (Auto) 0.25 H Absolute Nucleated RBC 0.03 H Immature Gran % 2 H Nucleated RBC % 0 Sodium 133 L Potassium 4.4 Chloride 95 L Carbon Dioxide 23.7 Anion Gap 14 BUN 33 H Creatinine 5.4 H* D Estim Creat Clear Calc 9.9 L eGFR 8 L* BUN/Creatinine Ratio 6 L Glucose 111 H Calculated Osmolality 274 L Lactic Acid 1.0 Calcium 8.9 Corrected Calcium 9.4 Phosphorus 5.7 H Magnesium 2.7 H Total Bilirubin 0.4 AST 26 ALT 12 Alkaline Phosphatase 130 H Total Protein 5.0 L Albumin 3.4 Globulin 1.6 L Albumin/Globulin Ratio 2.1 Beta-Hydroxybutyrate/Acetoacetate 3.6 H ABG Interpretation ABG results: 11/11/24 11/11/24 11/12/24 04:01 07:38 04:55 ABG pH 7.14 L* 7.37 D 7.26 L D ABG pCO2 71 H* 42 D 44 ABG pO2 116 H 97 95 ABG HCO3 24 24 20 ABG O2 Saturation 97 99 H 98 ABG Base Excess -6 L -1 -7 L 11/12/24 11/13/24 11/14/24 07:35 04:13 04:35 ABG pH Cancelled 7.42 D 7.46 H ABG pCO2 Cancelled 48 40 ABG pO2 Cancelled 79 L 106 D ABG HCO3 Cancelled 31 H 29 H ABG O2 Saturation Cancelled 97 99 H ABG Base Excess Cancelled 6 H 4 H 11/15/24 11/16/24 11/16/24 04:58 05:20 11:55 ABG pH 7.47 H 7.29 L D 7.41 D ABG pCO2 39 51 H D 39 D ABG pO2 100 234 H D 160 H D ABG HCO3 29 H 24 24 ABG O2 Saturation 99 H 100 H 100 H ABG Base Excess 5 H -2 0 11/17/24 11/17/24 11/18/24 09:09 16:45 05:00 ABG pH 7.48 H 7.36 D 7.40 ABG pCO2 33 47 D 44 ABG pO2 132 H D 154 H D 203 H D ABG HCO3 25 27 H 27 H ABG O2 Saturation 101 H 100 H 101 H ABG Base Excess 1 1 2 11/19/24 11/20/24 04:14 04:42 ABG pH 7.41 7.43 ABG pCO2 43 38 ABG pO2 205 H 62 L D ABG HCO3 27 H 25 ABG O2 Saturation 101 H 94 ABG Base Excess 3 1 Assessment & Plan Additional Assessment & Plan Additional Plan: Mirella Grewal is a 74-year-old F with a PMH of CHF, coronary artery disease with multiple MIs s/p stents, COPD on 3 L home oxygen, ESRD on hemodialysis, Thursday, Thursday, , Thursday, and A-fib with pacemaker, who was brought in by EMS with a chief complaint of acute SOB. The patient was intubated and admitted to ICU for further management of acute hypoxic hypercapnic respiratory failure secondary to COPD exacerbation. Patient has agreed to be DNR/DNI and does not want any additional aggressive interventions. She wants to return home on hospice. Patient significantly tachycardic. Unable to offer dialysis. Marked functional decline and unable to sit in a dialysis chair for 3 hours 3 times weekly. Despite a daily dialysis patient continues to be in fluid overload and not able to tolerate ultrafiltration. At this point I am going to stop dialysis. Agree with comfort care/hospice with no dialysis. 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, requires vascular surgery follow up Fistula remains patent and thrill is palpable Treatment Plan -Continue to monitor #Acute hypoxic respiratory failure - extubated, on oxymask #CAP # CHF exacerbation, likely 2/2 volume overload in the setting of ESRD #Pleural Effusion Critically elevated BNP 2005 with elevated troponin I 0.046 CXR showed moderate congestive heart failure with prominent vascular congestion and perihilar basilar edema Chest CT showed mild heart failure with moderate enlargement of the cardiac contour with small bilateral pleural effusions 810 CXR showed bibasilar pneumonia with significant RLL consolidation 11/13 EKG showed a change from sinus rhythm to atrial fibrillation with intermittent pacemaker rhythm 11/14 troponin downtrended to 3.023 from 4.088 Treatment Plan -Continue management per primary care team #Recurrent Tachyarrythmia -s/p angiogram, significant calcifications--not a operable candidate #Hx of A-fib, on Eliquis and s/p pacemaker Treatment Plan -Continue management per cardiology recommendations -Continue management per primary care team #Electrolyte abnormalities #Normocytic anemia, likely 2/2 ESRD status #Thrombocytopenia 11/20/24: Hgb 9.2 Treatment Plan -Monitor H&H, transfuse if Hgb<7 #CAD s/p stents Treatment Plan -Continue management per primary care team Overall prognosis remains poor. Spoke to primary team Quality - progress note Quality Measures Quality Measures: VTE prophylaxis Reason for Continued Stay Reason for Continued Stay: further monitoring
[2024-11-23] MEDS: METOPROLOL TARTRATE 25 MG TABLET NG (10:27)
--- NOTE | 2024-11-23 13:45 | ESPR_ITS ---
<Statement entered by Holden Cameron MD - 11/23/24 14:55> Patient was seen and examined at bedside. She is 3x oriented and follow command. Found to have worsening swelling of her Rt hand from previous IV infiltrate, however, the hand is warm and ELEVATOR MECHANIC was less than 3secs, US venous doppler was -ve for DVT. She Passed swallow eval and the NG tube was removed. diet will be resumed. The engineering production worker Dr Mishra mentioned that the patient is not a candidate for dialysis. At this time Her O2 requirement still at 4 L however patient can be DC from medical standpoint to a SNF as it was discussed with the patient. - Patient's plan and care discussed with my attending, Dr. Bharat Cameron MD Internal Medicine PGY-3 Documentation for date of: 11/23/24 Subjective Subjective Interval history: I/O: +1400mL, 0 output Patient examined bedside, on oxy mask 3-4L O2 97%. Is concerned with right arm pain. She has overall pain but improved chest pain and left arm pain. She is still getting shocks from her ICD device, SVTs into the 150s and drops to the 90s. She was originally on 2L O2 but requested it to be raised which the interviewer obliged. Exam Vital Signs Temp Pulse Resp BP Pulse Ox O2 Del Method O2 Flow Rate 98.2 F 90 25 H 155/72 H 94 L Nasal Cannula 2 11/23/24 12:00 11/23/24 12:00 11/23/24 12:00 11/23/24 12:00 11/23/24 12:00 11/23/24 12:00 11/23/24 12:00 FiO2 28 11/21/24 11:55 Narrative Exam General: Awake, gargling cough, in some respiratory distress HEENT: Normocephalic, atraumatic, mucous membranes dry. Heart: regular rate and rhythm, no murmurs. Lungs: B/L diffuse inspiratory crackles and transmitted sounds heard. Overall difficult to auscultate Abdomen: Soft, nondistended, nontender, positive bowel sounds. ?No guarding or rebound tenderness. Neurologic: No gross neurological deficits noted. Extremities: No edema in lower extremities. large left AV fistula noted in L upper extremity. 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 Right upper extremity swelling and dressing is noted. Today R upper extremity hand swelling is much larger, painful, warm, skin is dark blue and mottled, patient able to move fingers, pulse palpable but weak, fingernail capillary refill time <3 seconds. Skin: No rash. ecchymotic patches noted on right arm and at the site of IV catheters Objective Labs 11/23/24 05:20 11/23/24 05:20 Labs: Laboratory Results - last 24 hr 11/22/24 11/23/24 15:23 05:20 WBC 12.9 H RBC 2.94 L Hgb 8.6 L Hct 26.8 L MCV 91 MCH 29.3 MCHC 32.1 RDW Std Deviation 57.8 H Plt Count 138 L Neut % (Auto) 82 H Lymph % (Auto) 6 L Fleming % (Auto) 9 Eos % (Auto) 0 Baso % (Auto) 0 Neut # (Auto) 10.6 H Lymph # (Auto) 0.8 L Fleming # (Auto) 1.1 H Eos # (Auto) 0.1 Baso # (Auto) 0.1 Immature Gran # (Auto) 0.25 H Absolute Nucleated RBC 0.03 H Immature Gran % 2 H Nucleated RBC % 0 Sodium 133 L Potassium 4.4 Chloride 95 L Carbon Dioxide 23.7 Anion Gap 14 BUN 33 H Creatinine 5.4 H* D Estim Creat Clear Calc 9.9 L eGFR 8 L* BUN/Creatinine Ratio 6 L Glucose 111 H Calculated Osmolality 274 L Calcium 8.9 Corrected Calcium 9.4 Phosphorus 5.7 H Magnesium 2.7 H Total Bilirubin 0.4 AST 26 ALT 12 Alkaline Phosphatase 130 H Total Protein 5.0 L Albumin 3.4 Globulin 1.6 L Albumin/Globulin Ratio 2.1 Beta-Hydroxybutyrate/Acetoacetate 3.6 H ABG Interpretation ABG results: 11/11/24 11/11/24 11/12/24 04:01 07:38 04:55 ABG pH 7.14 L* 7.37 D 7.26 L D ABG pCO2 71 H* 42 D 44 ABG pO2 116 H 97 95 ABG HCO3 24 24 20 ABG O2 Saturation 97 99 H 98 ABG Base Excess -6 L -1 -7 L 11/12/24 11/13/24 11/14/24 07:35 04:13 04:35 ABG pH Cancelled 7.42 D 7.46 H ABG pCO2 Cancelled 48 40 ABG pO2 Cancelled 79 L 106 D ABG HCO3 Cancelled 31 H 29 H ABG O2 Saturation Cancelled 97 99 H ABG Base Excess Cancelled 6 H 4 H 11/15/24 11/16/24 11/16/24 04:58 05:20 11:55 ABG pH 7.47 H 7.29 L D 7.41 D ABG pCO2 39 51 H D 39 D ABG pO2 100 234 H D 160 H D ABG HCO3 29 H 24 24 ABG O2 Saturation 99 H 100 H 100 H ABG Base Excess 5 H -2 0 11/17/24 11/17/24 11/18/24 09:09 16:45 05:00 ABG pH 7.48 H 7.36 D 7.40 ABG pCO2 33 47 D 44 ABG pO2 132 H D 154 H D 203 H D ABG HCO3 25 27 H 27 H ABG O2 Saturation 101 H 100 H 101 H ABG Base Excess 1 1 2 11/19/24 11/20/24 04:14 04:42 ABG pH 7.41 7.43 ABG pCO2 43 38 ABG pO2 205 H 62 L D ABG HCO3 27 H 25 ABG O2 Saturation 101 H 94 ABG Base Excess 3 1 Quality Measures Quality Measures none Advance care planning discussed with:: patient Assessment & Plan Assessment Current Active Medications: Generic Name Dose Route Start Last Admin Trade Name Freq PRN Reason Stop Dose Admin Acetaminophen 650 mg 11/11/24 05:17 Acetaminophen 325 Mg Tablet PO 12/11/24 05:16 Q6H PRN Fever >100.5 Amiodarone HCl 200 mg 11/18/24 09:00 11/23/24 10:22 Amiodarone Hcl 200 Mg Tablet NG 12/18/24 08:59 200 mg BID RAYO Administration Aspirin 81 mg 11/11/24 09:00 11/23/24 10:21 Aspirin 81 Mg Chew NG 12/11/24 08:59 81 mg QDAY RAYO Administration Atorvastatin Calcium 40 mg 11/11/24 21:00 11/22/24 21:41 Atorvastatin Calcium 20 Mg Tablet NG 12/11/24 20:59 40 mg HS RAYO Administration Bisacodyl 10 mg 11/16/24 10:09 11/16/24 10:44 Bisacodyl 10 Mg Supp NJ 12/16/24 10:08 10 mg QDAY PRN Administration CONSTIPATION Protocol Dextrose 25 ml 11/12/24 06:24 11/22/24 16:07 Dextrose 50%-Water Inj 50 Ml Syringe IV 12/12/24 06:23 25 ml Q15MIN PRN Administration BG 50-70 responsive npo pt Dextrose 50 ml 11/12/24 06:24 11/18/24 18:50 Dextrose 50%-Water Inj 50 Ml Syringe IV 12/12/24 06:23 50 ml Q15MIN PRN Administration BG <50 OR BG <70 & pt unresponsive Famotidine 20 mg 11/11/24 09:00 11/23/24 10:21 Famotidine Inj 10 Mg/Ml Vial 2 Ml IVP 12/11/24 08:59 20 mg QDAY RAYO Administration Protocol Glucagon 1 mg 11/12/24 06:24 Glucagon Inj 1 Mg Vial IM Q15MIN PRN BG <70, and no IV access Heparin Sodium (Porcine) 5,000 unit 11/19/24 06:00 11/23/24 05:25 Heparin Sod Inj 5000 Unit/Ml Vial SC 12/03/24 05:59 5,000 unit Q8HR RAYO Administration Albumin Human 25 gm in 100 mls @ 100 mls/min 11/14/24 08:47 11/14/24 18:41 Albuminar-25 Ivpb IV Infused PRN PRN Infusion DIALYSIS Ipratropium [place] 0.5 mg 11/22/24 19:00 11/23/24 10:54 Ipratropium Rt 0.5 Mg/ 2.5 Ml Nebu INH 12/22/24 18:59 0.5 mg Q4HRRT RAYO Administration Levalbuterol HCl 1.25 mg 11/22/24 19:00 11/23/24 10:54 Levalbuterol Rt 1.25 Mg/0.5 Ml Nebu INH 12/22/24 18:59 1.25 mg Q4HRRT RAYO Administration Magnesium Hydroxide 30 ml 11/16/24 10:08 11/16/24 10:46 Milk Of Magnesia Susp 30 Ml Udc PO 12/16/24 10:07 30 ml QDAY PRN Administration CONSTIPATION Protocol Metoprolol Tartrate 25 mg 11/14/24 11:30 11/23/24 10:27 Metoprolol Tartrate 25 Mg Tablet NG 12/14/24 11:29 25 mg BID RAYO Administration Midodrine 10 mg 11/11/24 22:00 11/23/24 05:25 Midodrine 5 Mg Tablet NG 12/11/24 21:59 10 mg TID RAYO Administration Morphine Sulfate 4 mg 11/22/24 14:20 Morphine Sulf Inj 10 Mg/Ml Vial IVP 11/27/24 14:19 Q6HR PRN pain 7-10 Multivitamins 1 tab 11/22/24 16:00 11/23/24 10:21 Multivitamins Tablet PO 12/22/24 15:59 1 tab QDAY RAYO Administration Ondansetron HCl 4 mg 11/11/24 05:17 Ondansetron Inj 2 Mg/Ml Inj 2 Ml IVP 12/11/24 05:16 Q6H PRN NAUSEA OR VOMITING Protocol Pharmacy Consult 1 each 11/11/24 05:27 Pharmacy Renal Dose Adjustment 1 Ea XX 12/11/24 05:26 PRN PRN CONSULT Quetiapine Fumarate 25 mg 11/22/24 18:22 11/22/24 21:59 Quetiapine Fumarate 25 Mg Tablet NG 12/22/24 18:21 25 mg X1 PRN Administration AGITATION Sacubitril/Valsartan 1 tab 11/18/24 11:15 11/23/24 10:21 Sacubitril 24 Mg/Valsartan 26 Mg Tablet PO 12/18/24 11:14 1 tab BID RAYO Administration Sevelamer Carbonate 0.8 gm 11/14/24 08:00 11/23/24 11:59 Sevelamer Carbonate 0.8 Gm Packet (Non-Formulary) NG 12/14/24 07:59 0.8 gm TIDWM RAYO Administration Sodium Chloride 3 ml 11/22/24 15:09 Sodium Chloride Rt Poonam 0.9% 3 Ml Nebu INH 12/22/24 15:08 PRN PRN SOLN Plan The patient is a 74-year-old female with significant past medical history of CHF, coronary artery disease with multiple MIs s/p stents, COPD on 3 L home oxygen, ESRD on hemodialysis, Thursday, Thursday, , Thursday, A-fib with pacemaker, brought in by EMS with chief complaint of acute SOB. The patient was intubated and admitted to ICU for further management of acute hypoxic hypercapnic respiratory failure secondary to COPD exacerbation. Was intubated twice, had ICD interrogated, multiple shocks to patient during cardiac angio. Patient is downgraded to [facility] for medical management, pending hospice facility placement. Cardiology and nephrology agree no therapeutic benefit to treatment. Continue pain management and breathing treatments as well as PRN seroquel for anxiety. #Localized swelling R hand #DVT r/o Patient had warmth and swelling of right hand, leaking fluid from small abrasion. Hand is warm, purple and mottled and painful. Capillary refill time <3 seconds. Patient able to move fingers. Pulses weak but palpable. Less c/f acute limb ischemia Plan: -Doppler venous US: Negative for DVT. -Continue to monitor for signs of worsening swelling or pain, coldness, numbness, pallor, pulselessness, and paralysis. # CAD s/p multiple stents # HFrEF, EF 30% in 2024 2/2 ischemic cardiomyopathy, S/p ICD #Episode of SVT/VT (ubstable) with multiple shocks through the ICD #History of atrial fibrillation (unstable) #NSTEMI, type II Though patient presented with acute SOB, was found to have BNP 2000, no JVD or peripheral edema noted. EKG showed paced rhythm with ST elevation in 1, aVL and reciprocal depressions in 2, 3 and aVF suggestive of old NC. ECHO on 11/16/2024. Findings are consistent with ischemic cardiomyopathy severe LV dysfunction heavy mitral annulus calcification calcification mitral apparatus with moderate to severe mitral stenosis and mild mitral regurgitation. 11/13/2024 Patient was given adenosine 6 mg IV x1, metoprolol 5 mg IV x1, diltiazem 10 mg IV x1 with conversion On 11/15/2023, multiple episodes of SVT and VT. 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 Cardiology deemed treatment without therapeutic benefit recommended hospice respectfully. Morphine PRN for chest pain. Plan - Fluid restriction to 1500 cc daily - Continue on GDMT - Metoprolol 25 mg twice daily and Entresto 24/26 mg twice daily - DCd - telemetry - Cont Amiodarone 200mg BID tablet - Cont metoprolol tartate 25 mg PO BID - Morphine 4mg IVP PRN for chest pain - Hold eliquis due to no therapeutic benefit, patient placed on hospice. -HAS-BLED: 5, very high major risk of bleeding (9% risk annual bleeding) -CHADSVASC: 5 very high risk of ischemic stroke (7.2% risk of ischemic and a 10% risk of stroke, TIA, or systemic embolism #Acute encephalopathy - resolved Patient was noted to have encephalopathy due to CO2 narcosis at the time of admission. Multiple episodes of hospital required delirium. Has since resolved since being off intubation and downgraded to tele. Plan - Frequent reorientation, natural light, encourage movement, avoid delirium - Started on Seroquel 50 mg at bedtime --> 25 mg PRN for agitation #Failure to thrive #Starvation ketosis Patient after extubation failed speech eval, at this time patient was put on fluid restriction and tube feed hold as the patient suspected to have developed aspiration pneumonia. At this time patient noticed to have anion gap metabolic acidosis beta-hydroxybutyrate was elevated 4.8. Lactic acid was within normal limit. Plan ? Repeat speech eval: Passed --> Dysphagia 1 pureed ? Start the patient tube feed at 30 mL/h of Jevity, and start water flushes every 4 hours ? Registered dietitian consultation ? Multivitamin injection x 1 followed by p.o. multivitamins ? Thiamine injection IV x 100 mg. #Acute hypoxic hypercapnic respiratory failure, Improving #Suspected community-acquired pneumonia- Resolved #COPD exacerbation, resolved #Pulmonary edema #Fluid overload 2/2 ESRD vs HF Likely in the setting of worsening disease or superimposed bacterial infection and pulmonary edema in the setting of ESRD, getting 4 sessions of dialysis at baseline 2/2 her accelerated fluid over load and ongoing ischemic heart disease. Intubated x2. Sputum cx: acinetobacter Iwoffi. Treated with Unasyn. Diagnostic Tests: - Tested negative for influenza A, B and COVID-19 - ABG at the time of admission showed pH 7.14, pCO2 71, PaO2 116, bicarb 24, O2: 97% - Chest x-ray: cardiomegaly, infiltrates more on the right basilar area. - Labs showed WBC 13.5 - Tested negative for influenza A and B, COVID-19 - Blood cultures: negative - 80 secretions came back positive for Acinetobacter Iwofii Treatment: - Patient is sedated, intubated and mechanically ventilated on 11/10/2024 - Received methylprednisolone 125 Mg IV x 1 in the ED - Started on methylprednisolone 60 Mg IV daily, completed 5 days on 11/14/2024 - Nebulizations every fourth of every, Levalbuterol/ipratropium - Chest physical therapy - Tried to wean the patient off ventilator on 11/13, 11/14 but noted to go to SVT and VT on both days. - Patient was extubated on 11/16/2024 and started on BiPAP and oxygen as needed and got reintubated on - Started on Unasyn as patient ET secretions culture tested positive for Acinetobacter Iwofii, stopped as of 11/18/2024 as patient completed 7 days course of antibiotics and no suspicion of active ongoing pneumonia - Started on OxyMask, 3 L oxygen which is her baseline. #ESRD on HD - Stopped Nephro consulted, deemed no therapeutic benefit to continuing dialysis Plan - DC HDS #Leukocytosis, resolved Reactive versus steroid versus infective Secondary to pneumonia and COPD exacerbation #Normocytic normochromic anemia DDx: Inflammatory anemia due to chronic kidney disease, versus nutritional deficiency versus malabsorption Workup as an outpatient basis. Later patient found to be having low hemoglobin, 6.7 likely due to blood loss from Right thigh hematoma from the procedure - Transfused 2PRBC as of 11/18/2024 during HD # Thrombocytopenia, resolving At the time of admission is 177. Patient is started on heparin drip on 11/13/2024 in view of suspected ongoing acute ischemic heart disease. Since then, noted to have downtrend in platelet count. Platelet count as of 11/15/2024 is 97,000 and on 11/16/2024 is within normal limits -->8, [id number] ---> 11/18, 94,000 --> 11/21, [id number]. Suspected HIT in the setting of heparin and thrombocytopenia, - HIT panel is sent, came back negative Plan - Will continue to monitor platelet count. Health maintenance: Dispo: Hospice Diet: Pureed dysphagia 1 Lines: Left IJ central line, DVT prophylaxis: SCDs CODE STATUS: DNR Patient plan of care was discussed with Dr. Nicholson and supervising resident Dr. Nisha Dixon PGY-1 Attending Provider Attestation/Addendum I have discussed and was present for the essential components of the history, physical examination, diagnosis, and treatment plan with the resident. I agree with the patient's care as documented by the resident and amended herein by me. Rachid Nicholson DO. Although this document has been carefully reviewed, there may still be some phonetic and other typographical errors. These errors are purely grammatical due to imperfections in the software program and should not be construed in any way to compromise the substance of the patient's medical care during this visit. Patient seen and evaluated this AM. No acute events overnight, patient pending hospice placement. Per nephrology, the patient is not a candidate for hemodialysis at this time. Speech therapy did evaluate the patient today, cannot tolerate oral intake hence we will remove the patient's NG tube. Likely discharge tomorrow to SNF with hospice.
--- NOTE | 2024-11-23 16:05 | PC.SS ---
[employer] informed by [facility] that facility can accept patient for placement. [facility] cannot accept patient until tomorrow morning due to bed availability. [employer] updated bedside nurse, resident team, [place] [facility] and patient's surrogate medical decision maker.
[2024-11-23] MEDS: SEVELAMER CARBONATE 0.8 GM PACKET (NON-FORMULARY) PO (18:29)
--- NOTE | 2024-11-23 19:36 | ESPR_ITS ---
<Statement entered by Jessenia Escudero MD - 11/24/24 22:40> The patient continues to be unstable has tachycardia episodes again moved to telemetry DNR/DNI instituted evaluation with his revision PGY2 Dr. CARRENO agree with the treatment plan recommendation as documented patient prognosis poor conditions critical Documentation for date of: 11/23/24 Subjective Subjective Interval history: No acute overnight events. She was downgraded from ICU to telemetry. Vitals remained stable although she is still having tachycardic episode with HR 160s. Denies fever, chills, headaches, chest pain, sob, cough, GI or urinary symptoms. Exam Vital Signs Temp Pulse Resp BP Pulse Ox O2 Del Method O2 Flow Rate 97.3 F 94 25 H 138/84 H 92 L Oxy Mask 12 11/23/24 16:00 11/23/24 18:18 11/23/24 18:18 11/23/24 16:00 11/23/24 18:18 11/23/24 16:00 11/23/24 18:18 FiO2 28 11/21/24 11:55 Narrative Exam General: Awake, resting comfortably HEENT: Normocephalic, atraumatic, mucous membranes dry. Heart: regular rate and rhythm, no murmurs. Lungs: B/L diffuse inspiratory crackles and transmitted sounds heard Abdomen: Soft, nondistended, nontender, positive bowel sounds. ?No guarding or rebound tenderness. Neurologic: No gross neurological deficits noted. Extremities: No edema. Left AV fistula noted. 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 Right upper extremity swelling and oozing noted from that site Skin: No rash. ecchymotic patches noted on right arm and at the site of IV catheters Objective Labs 11/23/24 05:20 11/23/24 05:20 Labs: Laboratory Results - last 24 hr 11/23/24 05:20 WBC 12.9 H RBC 2.94 L Hgb 8.6 L Hct 26.8 L MCV 91 MCH 29.3 MCHC 32.1 RDW Std Deviation 57.8 H Plt Count 138 L Neut % (Auto) 82 H Lymph % (Auto) 6 L [place] % (Auto) 9 Eos % (Auto) 0 Baso % (Auto) 0 Neut # (Auto) 10.6 H Lymph # (Auto) 0.8 L [place] # (Auto) 1.1 H Eos # (Auto) 0.1 Baso # (Auto) 0.1 Immature Gran # (Auto) 0.25 H Absolute Nucleated RBC 0.03 H Immature Gran % 2 H Nucleated RBC % 0 Sodium 133 L Potassium 4.4 Chloride 95 L Carbon Dioxide 23.7 Anion Gap 14 BUN 33 H Creatinine 5.4 H* D Estim Creat Clear Calc 9.9 L eGFR 8 L* BUN/Creatinine Ratio 6 L Glucose 111 H Calculated Osmolality 274 L Calcium 8.9 Corrected Calcium 9.4 Phosphorus 5.7 H Magnesium 2.7 H Total Bilirubin 0.4 AST 26 ALT 12 Alkaline Phosphatase 130 H Total Protein 5.0 L Albumin 3.4 Globulin 1.6 L Albumin/Globulin Ratio 2.1 ABG Interpretation ABG results: 11/11/24 11/11/24 11/12/24 04:01 07:38 04:55 ABG pH 7.14 L* 7.37 D 7.26 L D ABG pCO2 71 H* 42 D 44 ABG pO2 116 H 97 95 ABG HCO3 24 24 20 ABG O2 Saturation 97 99 H 98 ABG Base Excess -6 L -1 -7 L 11/12/24 11/13/24 11/14/24 07:35 04:13 04:35 ABG pH Cancelled 7.42 D 7.46 H ABG pCO2 Cancelled 48 40 ABG pO2 Cancelled 79 L 106 D ABG HCO3 Cancelled 31 H 29 H ABG O2 Saturation Cancelled 97 99 H ABG Base Excess Cancelled 6 H 4 H 11/15/24 11/16/24 11/16/24 04:58 05:20 11:55 ABG pH 7.47 H 7.29 L D 7.41 D ABG pCO2 39 51 H D 39 D ABG pO2 100 234 H D 160 H D ABG HCO3 29 H 24 24 ABG O2 Saturation 99 H 100 H 100 H ABG Base Excess 5 H -2 0 11/17/24 11/17/24 11/18/24 09:09 16:45 05:00 ABG pH 7.48 H 7.36 D 7.40 ABG pCO2 33 47 D 44 ABG pO2 132 H D 154 H D 203 H D ABG HCO3 25 27 H 27 H ABG O2 Saturation 101 H 100 H 101 H ABG Base Excess 1 1 2 11/19/24 11/20/24 04:14 04:42 ABG pH 7.41 7.43 ABG pCO2 43 38 ABG pO2 205 H 62 L D ABG HCO3 27 H 25 ABG O2 Saturation 101 H 94 ABG Base Excess 3 1 Quality Measures Quality Measures none Advance care planning discussed with:: patient Assessment & Plan Assessment Current Active Medications: Generic Name Dose Route Start Last Admin Trade Name Freq PRN Reason Stop Dose Admin Acetaminophen 650 mg 11/11/24 05:17 Acetaminophen 325 Mg Tablet PO 12/11/24 05:16 Q6H PRN Fever >100.5 Amiodarone HCl 200 mg 11/23/24 21:00 Amiodarone Hcl 200 Mg Tablet PO 12/23/24 20:59 BID RAYO Aspirin 81 mg 11/24/24 09:00 Aspirin 81 Mg Chew PO 12/24/24 08:59 QDAY [facility] Atorvastatin Calcium 40 mg 11/23/24 21:00 Atorvastatin Calcium 20 Mg Tablet PO 12/23/24 20:59 [facility] Bisacodyl 10 mg 11/16/24 10:09 11/16/24 10:44 Bisacodyl 10 Mg Supp CO 12/16/24 10:08 10 mg QDAY PRN Administration CONSTIPATION Protocol Dextrose 25 ml 11/12/24 06:24 11/22/24 16:07 Dextrose 50%-Water Inj 50 Ml Syringe IV 12/12/24 06:23 25 ml Q15MIN PRN Administration BG 50-70 responsive npo pt Dextrose 50 ml 11/12/24 06:24 11/18/24 18:50 Dextrose 50%-Water Inj 50 Ml Syringe IV 12/12/24 06:23 50 ml Q15MIN PRN Administration BG <50 OR BG <70 & pt unresponsive Famotidine 20 mg 11/11/24 09:00 11/23/24 10:21 Famotidine Inj 10 Mg/Ml Vial 2 Ml IVP 12/11/24 08:59 20 mg QDAY RAYO Administration Protocol Glucagon 1 mg 11/12/24 06:24 Glucagon Inj 1 Mg Vial IM Q15MIN PRN BG <70, and no IV access Albumin Human 25 gm in 100 mls @ 100 mls/min 11/14/24 08:47 11/14/24 18:41 Albuminar-25 Ivpb IV Infused PRN PRN Infusion DIALYSIS Ipratropium [place] 0.5 mg 11/22/24 19:00 11/23/24 18:06 Ipratropium Rt 0.5 Mg/ 2.5 Ml Nebu INH 12/22/24 18:59 0.5 mg Q4HRRT RAYO Administration Levalbuterol HCl 1.25 mg 11/22/24 19:00 11/23/24 18:06 Levalbuterol Rt 1.25 Mg/0.5 Ml Nebu INH 12/22/24 18:59 1.25 mg Q4HRRT RAYO Administration Magnesium Hydroxide 30 ml 11/16/24 10:08 11/16/24 10:46 Milk Of Magnesia Susp 30 Ml Udc PO 12/16/24 10:07 30 ml QDAY PRN Administration CONSTIPATION Protocol Metoprolol Tartrate 25 mg 11/23/24 21:00 Metoprolol Tartrate 25 Mg Tablet PO 12/23/24 20:59 BID RAYO Midodrine 10 mg 11/23/24 22:00 Midodrine 5 Mg Tablet PO 12/23/24 21:59 TID RAYO Morphine Sulfate 4 mg 11/22/24 14:20 Morphine Sulf Inj 10 Mg/Ml Vial IVP 11/27/24 14:19 Q6HR PRN pain 7-10 Multivitamins 1 tab 11/22/24 16:00 11/23/24 10:21 Multivitamins Tablet PO 12/22/24 15:59 1 tab QDAY RAYO Administration Ondansetron HCl 4 mg 11/11/24 05:17 Ondansetron Inj 2 Mg/Ml Inj 2 Ml IVP 12/11/24 05:16 Q6H PRN NAUSEA OR VOMITING Protocol Pharmacy Consult 1 each 11/11/24 05:27 Pharmacy Renal Dose Adjustment 1 Ea XX 12/11/24 05:26 PRN PRN CONSULT Quetiapine Fumarate 25 mg 11/23/24 15:02 Quetiapine Fumarate 25 Mg Tablet PO 12/24/24 08:59 QDAY PRN AGITATION Sacubitril/Valsartan 1 tab 11/18/24 11:15 11/23/24 10:21 Sacubitril 24 Mg/Valsartan 26 Mg Tablet PO 12/18/24 11:14 1 tab BID RAYO Administration Sevelamer Carbonate 0.8 gm 11/23/24 17:30 11/23/24 18:29 Sevelamer Carbonate 0.8 Gm Packet (Non-Formulary) PO 12/23/24 17:29 0.8 gm TIDWM RAYO Administration Sodium Chloride 3 ml 11/22/24 15:09 Sodium Chloride Rt [place] 0.9% 3 Ml Nebu INH 12/22/24 15:08 PRN PRN SOLN Plan The patient is a 74-year-old female with a history of CHF, CAD with multiple MIs and stents, COPD on 3 L home oxygen, ESRD on hemodialysis, and atrial fibrillation with pacemaker, who presented on 11/11/24 via EMS with acute shortness of breath. At home, she was hypoxic with oxygen saturation in the 80s and received DUONEB during transport. In the ED, she was saturating at 84% on high-flow CPAP, hypertensive to 200/76 mmHg, and altered. ABG demonstrated acute hypercapnic and hypoxic respiratory failure (pH 7.14, pCO? 71, pO? 116). CXR showed right lower lobe pneumonia. Labs revealed leukocytosis, elevated BNP (2006), elevated D-dimer, mild troponin rise (0.046), and creatinine consistent with ESRD. She was intubated, given METHYLPREDNISOLONE, fluids, CEFIXIME, and VANCOMYCIN, and admitted to the ICU. 1. Acute hypoxic respiratory failure secondary to chronic obstructive lung disease and acute decompensated congestive heart failure, flash pulmonary edema requiring mechanical ventilation. 2. Acute non-ST segment elevation myocardial infarction with persistent ST segment changes, chronically elevated due to left ventricular inferobasal and posterobasal aneurysm. 3. Coronary artery disease status post multivessel stent placement. 4. End-stage renal disease on hemodialysis. 5. Severe chronic obstructive lung disease. 6. Paroxysmal atrial fibrillation. 7. Vtach 8. Pulmonary edema Cardiac catheterization demonstrated extensive vascular and myocardial disease. Hemodynamics showed elevated LVEDP (18 mmHg) with no gradient across the aortic valve. LV angiogram revealed extensive inferoapical and apical akinesis with aneurysmal dilation, severe calcification, and EF ~30%. Coronary angiography showed a heavily calcified RCA with patent stents supplying nonviable myocardium, and severe 80% ostial left main stenosis with heavy calcification. Additional findings included diffuse calcification of the aorta, mitral annulus, and iliofemoral vessels, with severe stenosis of the left common femoral artery. RECOMMENDATIONS: Given critical left main disease, severe LV dysfunction, and diffuse calcification of the aorta and peripheral vasculature, the patient is not a candidate for PCI, Impella-assisted intervention, or CABG. With end-stage renal disease, recurrent hospitalizations, refractory ventricular arrhythmias, and high procedural risk, further revascularization is not feasible. Recommendation is for medical management only and comfort focused measures. Arrangements have been made for hospice, appropriatly. Recommended continuing with medical management, no need for audiology differential at this time. C ardiology will sign off. Please consult as needed. Case was discussed with attending physician, Dr. Escudero. Richard Gan, DO PGY II This document was transcribed using voice recognition technology. Minor inaccuracies may be present.
[2024-11-23] MEDS: ATORVASTATIN CALCIUM 20 MG TABLET 40 MG PO (20:46)
[2024-11-23] MEDS: AMIODARONE HCL 200 MG TABLET PO (20:46)
[2024-11-23] MEDS: METOPROLOL TARTRATE 25 MG TABLET PO (20:47)
[2024-11-24] VITALS (12 sets, daily range): BP systolic 113–156; BP diastolic 62–93; PULSE 84–115; RESP 16–30; TEMP 36.1–36.9; O2SAT 92–100
[2024-11-24] MEDS: IPRATROPIUM RT 0.5 MG/ 2.5 ML NEBU INH ×3 (02:27→11:26)
[2024-11-24] MEDS: LEVALBUTEROL RT 1.25 MG/0.5 ML NEBU INH ×3 (02:27→11:26)
[2024-11-24 06:02] LABS: Basophils # (Auto) 0.1 Thou/mm3 (0.0-0.2); Basophils % (Auto) 1 % (0-2.5); Eosinophils # (Auto) 0.0 Thou/mm3 (0.0-0.5); Eosinophils % (Auto) 0 % (0-10); Hematocrit 29.1 % (36.0-46.0); Hemoglobin 9.4 g/dL (12.0-16.0); Immature Granulocytes Auto 0.50 Thou/mm3 (0.00-0.00); Lymphocytes # (Auto) 0.7 Thou/mm3 (1.0-4.8); Lymphocytes % (Auto) 7 % (10-50); Mean Corpuscular HGB Conc 32.3 g/dl (31.0-37.0); Mean Corpuscular Hemoglobin 29.7 pg (25.0-35.0); Mean Corpuscular Volume 92 fL (80-100); Monocytes # (Auto) 0.9 Thou/mm3 (0.0-0.8); Monocytes % (Auto) 9 % (0-12); Neutrophils # (Auto) 7.9 Thou/mm3 (1.8-7.7); Neutrophils % (Auto) 79 % (37-80); Nucleated Red Blood Cell # 0.06 Thou/mm3 (0.00-0.00); Nucleated Red Blood Cell % 1 /100 WBC (0); Platelet Count 122 Thou/mm3 (140-440); RDW Standard Deviation 57.4 fL (36.4-46.3); Red Blood Count 3.17 Miln/mm3 (4.00-5.20); White Blood Count 10.0 Thou/mm3 (3.6-11.0)
[2024-11-24 06:28] LABS: Alanine Aminotransferase 16 U/L (10-49); Albumin, Serum 3.5 gm/dL (3.4-4.8); Albumin/Globulin Ratio 1.8 (1.2-2.2); Alkaline Phosphatase 139 U/L (46-116); Anion Gap 14 (7-16); Aspartate Amino Transferase 32 U/L (0-34); BUN/Creatinine Ratio 7 Ratio (12-20); Bilirubin,Total 0.4 mg/dL (0.3-1.2); Blood Urea Nitrogen 49 mg/dL (9-23); Calcium 9.3 mg/dL (8.3-10.6); Calcium (Corrected) 9.7 mg/dL (8.5-10.1); Carbon Dioxide 24.3 mMol/L (20.0-31.0); Chloride 92 mMol/L (98-107); Creatinine (Component) 6.6 mg/dL (0.6-1.3); Estimated Creatinine Clearance 8.0 mL/min (>60); Globulin 1.9 gm/dL (2.3-3.5); Glucose 101 mg/dL (74-106); Magnesium 2.6 mg/dL (1.6-2.6); Osmolality,Calculated 273 (275-295); Phosphorous 7.2 mg/dL (2.4-5.1); Potassium 5.1 mMol/L (3.4-5.1); Sodium 130 mMol/L (136-145); Total Protein 5.4 gm/dL (5.7-8.2); eGFR 6 See Note
--- NOTE | 2024-11-24 07:33 | PC.SS ---
[employer] contacted [facility] to schedule transport. Confirmation #[id number]. [place] transport preferred. Response pending.
--- NOTE | 2024-11-24 07:48 | PC.SS ---
CLARISSA conducted phone contact with [facility] staff, Bethanie [phone]; to provide update that patient will no longer be scheduled for dialysis sessions. Patient is not tolerating dialysis. Patient to d/c to SNF with hospice services.
--- NOTE | 2024-11-24 07:54 | PC.SS ---
Referral for transport generated on [facility]. Preferred vendor [place]. Response is pending.
--- NOTE | 2024-11-24 09:33 | PC.SS ---
MARINE SERVICE MANAGER confirmed with [facility] staff that patient needs to be under 5L for transport to facility. Patient currently on 8L. MARINE SERVICE MANAGER updated bedside nurse.
[2024-11-24] MEDS: ASPIRIN 81 MG CHEW PO (10:36)
[2024-11-24] MEDS: MULTIVITAMINS TABLET 1 TAB PO (10:37)
--- NOTE | 2024-11-24 10:45 | ESDS_ITS ---
Planned Discharge Date 11/25/24 DS: Providers Provider Date of admission: 11/11/24 05:17 Primary care physician: Physician No Primary/Family Admitting Provider: Gilma Rojas MD Attending Provider on Admission: West Nicholson DO Consults: 11/11/24 04:53 Consult to Nephrology Routine Comment: ESRD with HD Consulting Provider: Alfie Mishra 11/11/24 09:08 Consult to Cardiology Urgent Comment: Consulting Provider: Jessenia Escudero 11/17/24 07:16 Referral Speech Therapy Stat Comment: 11/21/24 10:58 Referral Hospice Routine Comment: Patient interesting in going home on hospice 11/22/24 15:51 Referral Speech Therapy Urgent Comment: Re- assess plz, thank you 11/22/24 15:57 Referral Registered Dietitian Urgent Comment: 11/23/24 14:22 Referral Wound Care Stat Comment: R hand Attending Provider on DC: Holden Cameron MD Discharging Provider: Holden Cameron MD DS: Diagnosis Problem List Completed Was Problem List Reviewed/Reconciled?: Yes Hospital Course Hospital Course Hospital course: The patient is a 74-year-old female with a history of CHF (EF 30%), CAD with multiple prior MIs and stents, COPD on 3 L home oxygen, ESRD on hemodialysis (//), and atrial fibrillation with pacemaker, who presented via EMS for acute shortness of breath. At home, she was saturating in the 80s. EMS placed her on CPAP and administered DuoNeb. On arrival to the ED, she remained hypoxic (SpO? 84% on high flow CPAP), was altered, and required intubation for acute hypoxic hypercapnic respiratory failure. Hospital Course * ICU stay: Patient was admitted to the ICU and started on methylprednisolone, ceftriaxone, and azithromycin for suspected COPD exacerbation with right lower lobe pneumonia. * Respiratory: She required mechanical ventilation for multiple days with several failed extubation attempts due to recurrent arrhythmias and delirium. She was extubated successfully on 11/16/24, briefly re-intubated on 11/17/24 for hypoxia and pulmonary edema, and ultimately extubated again on 11/20/24 to OxyMask. She remained stable on 3 L oxygen, her home baseline. * Cardiac: The patient had multiple episodes of SVT and VT requiring adenosine, metoprolol, diltiazem, amiodarone, and ICD shocks. She was transitioned to oral amiodarone and metoprolol. Cardiac catheterization on 11/18/24 revealed 80% left main coronary artery occlusion, severe mitral valve calcification, and inferior wall aneurysm. Given her poor surgical candidacy and prognosis, cardiology recommended medical management. * Renal: ESRD on chronic hemodialysis. She continued dialysis during hospitalization with intermittent difficulty due to arrhythmias and hypotension. Bumper Machine Operator recommended no O/P dialysis as the patient vitally unstable * Hematology: Developed thrombocytopenia while on heparin drip; workup for HIT initiated. She also had anemia with karen Hgb 6.7, requiring transfusion during dialysis. * Infectious disease: Sputum culture grew Acinetobacter iwofii ? treated with Unasyn. * Neurologic/psychiatric: Periods of ICU delirium, agitation, and hallucinations, treated with Precedex, antipsychotics (haloperidol, olanzapine, quetiapine). * Palliative care: Multiple goals of care discussions were held with the patient and her point of contact. The patient elected DNR/DNI status and requested comfort-focused care, including continuation of dialysis. Hospice referral was placed for detention facility placement. Eventually, the patient stabilized on baseline oxygen, NG tube and central line were removed, and she tolerated oral intake with assistance. Discharge Diagnoses * Acute hypoxic hypercapnic respiratory failure ? resolved * COPD exacerbation with right lower lobe pneumonia * Recurrent SVT/VT, history of CAD, EF 30% * Severe left main coronary artery stenosis and inferior wall aneurysm ? medically managed * ESRD on hemodialysis * Anemia of chronic disease with acute blood loss anemia (s/p transfusion) * Thrombocytopenia ? likely heparin associated, rule out HIT * ICU delirium ? improving * Acinetobacter pneumonia ? treated with Unasyn * Hypoalbuminemia/malnutrition - Patient's plan and care discussed with my attending, Dr. Bharat Cameron MD Internal Medicine PGY-3 Status at Discharge Functional status at discharge: bed bound Overall status at discharge: patient is not back to baseline Time Spent with Patient Time attestation: Total time spent providing and/or coordinating discharge services: Time spent: Greater than 30 minutes Exam Vital Signs Temp Pulse Resp BP Pulse Ox O2 Del Method O2 Flow Rate 98.4 F 102 H 25 H 122/63 93 L Oxy Mask 6 11/24/24 12:20 11/24/24 12:20 11/24/24 12:20 11/24/24 12:20 11/24/24 12:20 11/24/24 12:20 11/24/24 12:20 FiO2 28 11/21/24 11:55 Narrative Exam General: Awake, orinted x3, follow comand HEENT: Normocephalic, atraumatic, mucous membranes dry. Heart: regular rate and rhythm, no murmurs. Lungs: B/L mild diffuse inspiratory crackles and transmitted sounds heard Abdomen: Soft, nondistended, nontender, positive bowel sounds. ?No guarding or rebound tenderness. Neurologic: No gross neurological deficits noted. Extremities: No edema. Left AV fistula noted. 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 Right upper extremity swelling and oozing noted from that site Skin: No rash. ecchymotic patches noted on right arm and at the site of IV catheters Discharge Plan Plan Patient Disposition: Xfer Skilled Nsg Fac (SNF) Patient condition on transfer: Stable Care Plan Goals: Discharge instructions Follow-up with your PCP within 1 week Take your medicines as prescribed Return to ED if your symptoms worsen or return Prescriptions/Referrals Prescriptions/Med Rec: New aspirin 81 mg tablet 81 mg PO QDAY 30 Days Qty: 30 0RF Rx Instructions: Take one tablet by mouth every day atorvastatin [Lipitor] 40 mg tablet 40 mg PO QPM 30 Days Qty: 30 0RF Rx Instructions: Take one tablet by mouth at bedtime quetiapine 25 mg tablet 25 mg PO QDAY PRN (Reason: Agitation) 7 Days Qty: 7 0RF levalbuterol tartrate [Xopenex HFA] 45 mcg/actuation HFA aerosol inhaler 1 puff inhalation Q6H PRN (Reason: shortness of breath or wheezing) Qty: 15 0RF Rx Instructions: Take one puff up to four times a day Continued metoprolol tartrate 50 mg tablet 25 mg PO BID Patient Comments: TAKE ONE TABLET BY MOUTH TWICE DAILY Rx Instructions: take 1/2 tab twice daily amlodipine 10 mg tablet 10 mg PO QDAY sevelamer carbonate 800 mg tablet 800 mg PO TIDWM hydroxyzine HCl 10 mg tablet 10 mg PO BID PRN (Reason: itching) amiodarone 200 mg tablet 200 mg PO BID Patient Comments: TAKE ONE TABLET BY MOUTH TWICE DAILY FOR THE HEART Eliquis 5 mg tablet 5 mg PO BID Patient Comments: TAKE ONE TABLET BY MOUTH TWICE DAILY FOR THE HEART Entresto 24-26 mg tablet 1 tab PO BID Patient Comments: TAKE ONE TABLET BY MOUTH TWICE DAILY Referrals: No Primary/Family,Physician [Primary Care Provider] - Patient/Caregiver Discharge Instructions Discharge Activity: activity as tolerated Education Materials: Controlling Other Triggers, Coping with Kidney Failure, Coping with Heart Failure, Acute Kidney Failure Dc, Diagnosing COPD Print Language: Czech Stand Alone Forms: [employer] Award Info., Patient Portal Info Letter Discharge Order Discharge Orders: Discharge (Routine); Ordered 11/24/24 Ordered By: Rajan Gonsalves Quality Discharge Quality Measures VTE prophylaxis MD Attestestation MD Attestation I have discussed and was present for the essential components of the discharge history, physical examination, diagnosis, and discharge treatment plan with the resident. I agree with the patient's discharge care as documented by the resident and amended herein by me. Rachid Nicholson DO. Discharged to hospice care per family wishes Although this document has been carefully reviewed, there may still be some phonetic and other typographical errors. These errors are purely grammatical due to imperfections in the software program and should not be construed in any way to compromise the substance of the patient's medical care during this visit.
[2024-11-24] MEDS: METOPROLOL TARTRATE 25 MG TABLET PO (10:50)
[2024-11-24] MEDS: AMIODARONE HCL 200 MG TABLET PO (10:51)
--- NOTE | 2024-11-24 11:59 | PC.SS ---
PASSR completed. Patient meets Level I criteria.
--- NOTE | 2024-11-24 12:01 | PC.SS ---
PASSR submitted to [facility] via File Exchange.
--- NOTE | 2024-11-24 14:21 | ESPR_ITS ---
Documentation for date of: 11/24/24 Subjective Subjective Interval history: Mirella Grewal is a 74-year-old F with a PMH of CHF, coronary artery disease with multiple MIs s/p stents, COPD on 3 L home oxygen, ESRD on hemodialysis, Thursday, Thursday, , Thursday, and A-fib with pacemaker, who was brought in by EMS with a chief complaint of acute SOB. Per Internal Medicine team note, the patient called EMS due to SOB, and was saturating around 80% at home. She was given DuoNebs on the way to hospital and, when she presented to the ED, was saturating at 84% on high-flow CPAP. At this point, she was already altered, and was intubated. Internal Medicine team could not obtain further history due to patient already being intubated during their evaluation. Of note, patient has multiple prior hospitalizations for similar presentations of acute hypoxic respiratory failure including in November 2023 and September 2023. In the ED, vitals showed: BP 200/76 HR 79 RR 20 Temp 98.6 SpO2 84% on high flow CPAP, ED Course: CBC showed high WBC 13.5, and low Hgb 11.1 (MCV 96, RDW 63.4). Coagulation panel showed critically elevated D-dimer 2630 but was otherwise within normal limits. ABG showed normal pH 7.37, normal pCO2 42, normal PO2 97, and normal HCO3 24. CMP showed high BUN 39, critically elevated creatinine 6.4, critically low EGFR 6, high lactic acid 4.1, high blood glucose 184, low corrected calcium 7.7, c ritically elevated troponin I 0.046, critically elevated BNP 2005, high TSH 6.61, and low free T4 0.84. UA showed turbid orange urine with a basic pH of 8.0. It also showed 2+ urine protein, 2+ urine blood, high urine RBC 502, high urine WBC 1255, high urine squamous epithelial cells 29, but no urine bacteria. UDS was negative. Rapid RSV was negative. Imaging: Chest x-ray showed moderate congestive heart failure with prominent vascular congestion and perihilar basilar edema. Head CT was unremarkable. Chest CT showed bilateral thyroid nodules, mild heart failure with moderate enlargement of the cardiac contour, bibasilar pneumonia, numerous bilateral positioned metastatic pulmonary nodules, small bilateral pleural effusions, and cholelithiasis. EKG showed old KS. In the ED, patient was received methylprednisone 125 Mg IV x 1, bolus fluid 1 L at the rate 250 cc/h, cefixime 2 g IV x 1, and was started on vancomycin. The patient was intubated and admitted to ICU for further management of acute hypoxic hypercapnic respiratory failure secondary to COPD exacerbation. We, the nephrology team, were consulted for the patient's combined respiratory and metabolic acidosis and need for urgent hemodialysis due to ESRD status. Cardiology is also following. Interval History 11/20/2024: Pt seen and examined in the ICU, pt is extubated with oxymask in place. Per conversation with Dr. Lopez, there is significant calcification on angiogram, and scarring. Cards recommends medical management. BUN 32 from 25, Cr 4.4 from 3.6. pt is able to answer questions by shaking head and vocalizing. She is still on pressedex, plan to discuss code status with patient once she is alert and awake. No HD today 11/21/2024: No overnight events. Patient seen and examined at bedside; they are not intubated and seem more awake and alert. The idea of removing the ICD that continues to shock her was broached to the patient but met with seeming resistance by the patient (via shaking of the head). Notable labs today include: Hgb 8.5, Na 131, K 4.3, BUN bump to 38 from 32, and creatinine bump to 5.3 from 4.4. Patient is continuing to receive shocks without any available intervention to better her situation and, per ICU note, she has reached maximal medical therapy with no additional interventions available. Patient has agreed to be DNR/DNI and does not want any additional aggressive interventions. From nephrology's standpoint, patient will be receiving hemodialysis today. 11/22/2024: No overnight events. Patient seen and examined at bedside; they are not intubated but it remains difficult to understand patient verbally. Notable labs today include: Hgb 8.4, anion gap 18, BUN drop to 30 from 38, and creatinine drop to 4.4 from 5.3. Patient is continuing to receive shocks without any available intervention to better her situation and, per ICU note, she has reached maximal medical therapy with no additional interventions available. Patient has agreed to be DNR/DNI and does not want any additional aggressive interventions. She wants to return home on hospice. From nephrology's standpoint, patient will not be receiving hemodialysis today as her heart cannot tolerate it and the therapeutic value is minimal at this point. 11/24/2024 patient currently seen in telemetry. Significant functional decline and tachycardic. Opens her eyes. Currently on nasal mask at 8 L. Blood pressure on the lower side. Labs and medications reviewed. Heart rate 120. Unable to offer dialysis. Due to extreme fragility patient cannot even come to outpatient dialysis unit. She made herself DNR, DNI and comfort care. At this point I am going to discontinue dialysis and hospice/comfort care seems to be appropriate. Spoke to primary team. Conveyed the same to the patient. She seems to be able to understand. Review of Systems Review of Systems Narrative Review of Systems: Limited due to her mentation. Opens her eyes although goes back into sleep quickly Exam Vital Signs Temp Pulse Resp BP Pulse Ox O2 Del Method O2 Flow Rate 36.9 C 102 H 25 H 122/63 93 L Oxy Mask 6 11/24/24 12:20 11/24/24 12:20 11/24/24 12:20 11/24/24 12:20 11/24/24 12:20 11/24/24 12:20 11/24/24 12:20 FiO2 28 11/21/24 11:55 Narrative Exam General: Patient is awake, goes back to sleep quickly. Extremely fragile Skin: Some skin break down on LUE wrist fistula. Warm, dry. Head: NG tube in place. Normocephalic, atraumatic. Eyes: EOMI. Cardiovascular: Episodes of possible ICD shocks can be felt on the right side of the sternum. Regular rate and rhythm, no murmur, no JVD or carotid bruits. +S1/S2. Respiratory: crackles bilaterally, No accessory muscle use. Gastrointestinal: Soft, nontender, non distended no palpable masses. Extremities: Right hand and forearm appears bruised and swollen with gauze wrapped around it. Smaller area of bruising noted on left hand dorsum. RUE hand edema> LUE edema. warm to touch. 2+ dorsal pedalis, UE in restraints. Neuro: Arousable Objective Labs 11/24/24 05:11 11/24/24 05:11 Labs: Laboratory Results - last 24 hr 11/24/24 05:11 WBC 10.0 RBC 3.17 L Hgb 9.4 L Hct 29.1 L MCV 92 MCH 29.7 MCHC 32.3 RDW Std Deviation 57.4 H Plt Count 122 L Neut % (Auto) 79 Lymph % (Auto) 7 L [place] % (Auto) 9 Eos % (Auto) 0 Baso % (Auto) 1 Neut # (Auto) 7.9 H Lymph # (Auto) 0.7 L [place] # (Auto) 0.9 H Eos # (Auto) 0.0 Baso # (Auto) 0.1 Immature Gran # (Auto) 0.50 H Absolute Nucleated RBC 0.06 H Immature Gran % 5 H Nucleated RBC % 1 H Sodium 130 L Potassium 5.1 D Chloride 92 L Carbon Dioxide 24.3 Anion Gap 14 BUN 49 H Creatinine 6.6 H* D Estim Creat Clear Calc 8.0 L eGFR 6 L* BUN/Creatinine Ratio 7 L Glucose 101 Calculated Osmolality 273 L Calcium 9.3 Corrected Calcium 9.7 Phosphorus 7.2 H Magnesium 2.6 Total Bilirubin 0.4 AST 32 ALT 16 Alkaline Phosphatase 139 H Total Protein 5.4 L Albumin 3.5 Globulin 1.9 L Albumin/Globulin Ratio 1.8 ABG Interpretation ABG results: 11/11/24 11/11/24 11/12/24 04:01 07:38 04:55 ABG pH 7.14 L* 7.37 D 7.26 L D ABG pCO2 71 H* 42 D 44 ABG pO2 116 H 97 95 ABG HCO3 24 24 20 ABG O2 Saturation 97 99 H 98 ABG Base Excess -6 L -1 -7 L 11/12/24 11/13/24 11/14/24 07:35 04:13 04:35 ABG pH Cancelled 7.42 D 7.46 H ABG pCO2 Cancelled 48 40 ABG pO2 Cancelled 79 L 106 D ABG HCO3 Cancelled 31 H 29 H ABG O2 Saturation Cancelled 97 99 H ABG Base Excess Cancelled 6 H 4 H 11/15/24 11/16/24 11/16/24 04:58 05:20 11:55 ABG pH 7.47 H 7.29 L D 7.41 D ABG pCO2 39 51 H D 39 D ABG pO2 100 234 H D 160 H D ABG HCO3 29 H 24 24 ABG O2 Saturation 99 H 100 H 100 H ABG Base Excess 5 H -2 0 11/17/24 11/17/24 11/18/24 09:09 16:45 05:00 ABG pH 7.48 H 7.36 D 7.40 ABG pCO2 33 47 D 44 ABG pO2 132 H D 154 H D 203 H D ABG HCO3 25 27 H 27 H ABG O2 Saturation 101 H 100 H 101 H ABG Base Excess 1 1 2 11/19/24 11/20/24 04:14 04:42 ABG pH 7.41 7.43 ABG pCO2 43 38 ABG pO2 205 H 62 L D ABG HCO3 27 H 25 ABG O2 Saturation 101 H 94 ABG Base Excess 3 1 Assessment & Plan Additional Assessment & Plan Additional Plan: Mirella Grewal is a 74-year-old F with a PMH of CHF, coronary artery disease with multiple MIs s/p stents, COPD on 3 L home oxygen, ESRD on hemodialysis, Thursday, Thursday, , Thursday, and A-fib with pacemaker, who was brought in by EMS with a chief complaint of acute SOB. The patient was intubated and admitted to ICU for further management of acute hypoxic hypercapnic respiratory failure secondary to COPD exacerbation. Patient has agreed to be DNR/DNI and does not want any additional aggressive interventions. She wants to return home on hospice. Patient significantly tachycardic. Unable to offer dialysis. Marked functional decline and unable to sit in a dialysis chair for 3 hours 3 times weekly. Despite a daily dialysis patient continues to be in fluid overload and not able to tolerate ultrafiltration. At this point I am going to stop dialysis. Agree with comfort care/hospice with no dialysis. #ESRD on HD no further dialysis offered--due to extreme fragility and unable to tolerate dialysis with fluid removal. Patient herself made DNR/DNI. Was made aware of no further dialysis. She agreed. 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, requires vascular surgery follow up Fistula remains patent and thrill is palpable Treatment Plan -Continue to monitor #Acute hypoxic respiratory failure - extubated, on oxymask #CAP # CHF exacerbation, likely 2/2 volume overload in the setting of ESRD #Pleural Effusion Critically elevated BNP 2005 with elevated troponin I 0.046 CXR showed moderate congestive heart failure with prominent vascular congestion and perihilar basilar edema Chest CT showed mild heart failure with moderate enlargement of the cardiac contour with small bilateral pleural effusions 11/13 CXR showed bibasilar pneumonia with significant RLL consolidation 11/13 EKG showed a change from sinus rhythm to atrial fibrillation with intermittent pacemaker rhythm 11/14 troponin downtrended to 3.023 from 4.088 Treatment Plan -Continue management per primary care team #Recurrent Tachyarrythmia -s/p angiogram, significant calcifications--not a operable candidate Defibrillator seems to be fired several times. Patient did not want the defibrillator to be turned off. #Hx of A-fib, on Eliquis and s/p pacemaker Treatment Plan -Continue management per cardiology recommendations -Continue management per primary care team #Electrolyte abnormalities #Normocytic anemia, likely 2/2 ESRD status #Thrombocytopenia 11/20/24: Hgb 9.2 Treatment Plan -Monitor H&H, transfuse if Hgb<7 #CAD s/p stents Treatment Plan -Continue management per primary care team Overall prognosis remains poor. Spoke to primary team Renal leiva stable for discharge to rehab With comfort care. Quality - progress note Quality Measures Quality Measures: VTE prophylaxis Reason for Continued Stay Reason for Continued Stay: further monitoring
== END 2024-11-24 12:34 | disposition skilled nursing facility (03) | DRG 207 ==
LOC: SERX 04:29 → SERHOLD 06:05 → S2SX 21:10 → S2NX 11-22 18:27
PROVIDERS: Internal Medicine; Student in an Organized Health Care Education/Training Program; Admitting Provider Student in an Organized Health Care Education/Training Program; Emergency Provider Emergency Medicine; Visit Provider Student in an Organized Health Care Education/Training Program
DX: J44.1 Chronic obstructive pulmonary disease with (acute) exacerbation (principal); J96.01 Acute respiratory failure with hypoxia; N18.6 End stage renal disease; J96.02 Acute respiratory failure with hypercapnia; J96.21 Acute and chronic respiratory failure with hypoxia; J15.61 Pneumonia due to Acinetobacter baumannii; I49.01 Ventricular fibrillation; I13.2 Hypertensive heart and chronic kidney disease with heart failure and with stage 5 chronic kidney disease, or end stage renal disease; E87.4 Mixed disorder of acid-base balance; D62 Acute posthemorrhagic anemia; E46 Unspecified protein-calorie malnutrition; E87.1 Hypo-osmolality and hyponatremia; G93.49 Other encephalopathy; I47.10 Supraventricular tachycardia, unspecified; F05 Delirium due to known physiological condition; R44.3 Hallucinations, unspecified; I50.22 Chronic systolic (congestive) heart failure; I16.1 Hypertensive emergency; I47.29 Other ventricular tachycardia; J44.0 Chronic obstructive pulmonary disease with (acute) lower respiratory infection; Z87.891 Personal history of nicotine dependence; I25.10 Atherosclerotic heart disease of native coronary artery without angina pectoris; Z99.2 Dependence on renal dialysis; I48.91 Unspecified atrial fibrillation; E83.51 Hypocalcemia; D64.89 Other specified anemias; D63.1 Anemia in chronic kidney disease; D69.6 Thrombocytopenia, unspecified; E83.39 Other disorders of phosphorus metabolism; E87.5 Hyperkalemia; E87.8 Other disorders of electrolyte and fluid balance, not elsewhere classified; E88.09 Other disorders of plasma-protein metabolism, not elsewhere classified; F41.9 Anxiety disorder, unspecified; G24.9 Dystonia, unspecified; E83.59 Other disorders of calcium metabolism; G47.419 Narcolepsy without cataplexy; I25.2 Old myocardial infarction; I25.5 Ischemic cardiomyopathy; Z99.81 Dependence on supplemental oxygen; Z95.0 Presence of cardiac pacemaker; I70.202 Unspecified atherosclerosis of native arteries of extremities, left leg; I70.0 Atherosclerosis of aorta; R62.7 Adult failure to thrive; S70.11XA Contusion of right thigh, initial encounter; I48.0 Paroxysmal atrial fibrillation; I34.81 Nonrheumatic mitral (valve) annulus calcification; I45.9 Conduction disorder, unspecified; Z79.01 Long term (current) use of anticoagulants; Z79.899 Other long term (current) drug therapy; Z51.5 Encounter for palliative care; Z66 Do not resuscitate; Z79.82 Long term (current) use of aspirin; Z79.02 Long term (current) use of antithrombotics/antiplatelets; Z87.442 Personal history of urinary calculi; Z95.5 Presence of coronary angioplasty implant and graft; Z90.710 Acquired absence of both cervix and uterus; Z95.810 Presence of automatic (implantable) cardiac defibrillator; Z89.422 Acquired absence of other left toe(s)
CPT/HCPCS: 36415; 36600; 70450; 71045; 71250; 74018; 80053; 80061; 80069; 80074; 80202; 80307; 81001; 82010; 82140; 82248; 82310; 82550; 82803; 83036; 83605; 83690; 83735; 83880; 84100; 84132; 84145; 84439; 84443; 84484; 85014; 85018; 85025; 85379; 85610; 85652; 85730; 86022; 86140; 86706; 86850; 86900; 86901; 86923; 87040; 87077; 87081; 87186; 87205; 87400; 87634; 87811; 92610; 93005; 93306; 93971; 94002; 94003; 94640; 94660; 94667; 96361; 96365; 96366; 96375; 99152; 99284; A4216; A4649; A9270; C1725; C1769; C1894; J0153; J0168; J0282; J0283; J0295; J0330; J0461; J0612; J0613; J0692; J0696; J1630; J1643; J1644; J1756; J1815; J1938; J2250; J2270; J2312; J2358; J2371; J2405; J2704; J2919; J3010; J3370; J3372; J3475; J3480; J3490; J7030; J7050; J7120; P9016; P9047; Q5105; Q5106; Q9967; J1920; J2359